=== PATIENT | male | born 1930 ===

== ENCOUNTER 2017-03-09 16:31 | Inpatient (IN) | payer MEDICARE ==
--- NOTE | 2017-03-09 17:08 | ED PDOC ---
Arrival/HPI - General Time Seen by Provider: 03/09/17 17:02 Historian: Patient, Family - History of Present Illness Narrative History of Present Illness (Text): The patient is a 86yo male, is brought to the emergency department for evaluation of hematuria since yesterday. Patient's daughter is present at bedside. Patient reports penile pain but denies any abdominal pain. At present, patient offers no additional medical complaints. Time/Duration: 24 hours Symptom Onset: Gradual Past Medical History - Provider Review Nursing Documentation Reviewed: Yes - Infectious Disease Hx of Infectious Diseases: None - Tetanus Immunization Tetanus Immunization: Unknown - Cardiac Hx Cardiac Disorders: Yes Hx Hypertension: Yes Hx Pacemaker: Yes - Pulmonary Hx Respiratory Disorders: No - Neurological Hx Neurological Disorder: No Hx Paralysis: No - HEENT Hx HEENT Disorder: No - Renal Hx Renal Disorder: No - Endocrine/Metabolic Hx Endocrine Disorders: Yes Hx Hypothyroidism: Yes - Hematological/Oncological Hx Blood Disorders: No Hx Blood Transfusions: No Hx Blood Transfusion Reaction: (NA) - Integumentary Hx Dermatological Disorder: No - Musculoskeletal/Rheumatological Hx Musculoskeletal Disorders: Yes - Gastrointestinal Hx Gastrointestinal Disorders: No - Genitourinary/Gynecological Hx Genitourinary Disorders: Yes Hx Hematuria: Yes - Psychiatric Hx Psychophysiologic Disorder: No Hx Emotional Abuse: No Hx Physical Abuse: No Hx Substance Use: No - Past Surgical History Past Surgical History: No Previous - Anesthesia Hx Anesthesia Reactions: Yes (bradycardia, asystole) Hx Malignant Hyperthermia: No - Suicidal Assessment Feels Threatened In Home Enviroment: No Family/Social History - Physician Review Nursing Documentation Reviewed: Yes Family/Social History: Unknown Family HX Smoking Status: Never Smoked Hx Alcohol Use: Yes (occasional glass of wine) Hx Substance Use: No Hx Substance Use Treatment: No Allergies/Home Meds Allergies/Adverse Reactions: Allergies No Known Allergies Allergy (Verified 03/09/17 17:00) Home Medications: Home Meds Medication Instructions Recorded Confirmed Warfarin [Coumadin] 5 mg PO QPM 01/18/15 03/09/17 Levothyroxine [Synthroid] 25 mcg PO DAILY 01/01/16 03/09/17 Amlodipine Besylate [Norvasc] 25 mg PO DAILY 04/01/16 03/09/17 Digoxin [Digitek] 1 tab PO DAILY 04/01/16 03/09/17 Hydrochlorothiazide 1 tab PO DAILY 04/01/16 03/09/17 Isosorbide Mononitrate [Isosorbide 1 tab PO DAILY 04/01/16 03/09/17 Mononitrate ER] Lisinopril 20 mg PO DAILY 04/01/16 03/09/17 Metoprolol Tartrate [Lopressor] 25 mg PO BID 04/01/16 03/09/17 Review of Systems - Physician Review All systems were reviewed & negative as marked: Yes Physical Exam - Physical Exam Narrative Physical Exam (Text): - Review of Systems Constitutional: Normal. absent: Fatigue, Weight Change, Fevers Eyes: Normal ENT: Normal Respiratory: Normal absent: SOB, Cough, Sputum Cardiovascular: Normal absent: Chest pain, Palpitations, Syncope Gastrointestinal: Normal absent: Abdominal pain, Diarrhea, Nausea, Vomiting Genitourinary: Hematuria, Penile pain. absent: Dysuria, Frequency, Musculoskeletal: Normal. absent: Arthralgias, Back Pain, Neck Pain Skin: Normal Neurological: Normal absent: Focal Weakness Endocrine: Normal Hemo/Lymphatic: Normal Psychiatric: Normal - Physical exam Patient appears age appropriate, speaking full sentences without difficulty - Systems Exam Head: Present: Atraumatic, Normocephalic Pupils: Present: PERRL Extraocular Muscles: Present: EOMI Conjunctiva: Present: Normal Mouth: Present: Moist Mucous Membranes Neck: Present: Normal Range of Motion. No: MIDLINE TENDERNESS, Paraspinal Tenderness Respiratory/Chest: Present: Clear to Auscultation, Good Air Exchange. No: Respiratory Distress, Accessory Muscle Use, Tachypnic Cardiovascular: Present: Regular Rate and Rhythm, Normal S1, S2, Peripheral Pulses Present. No: Murmurs Abdomen: Present: Normal Bowel Sounds, No: Tenderness, Peritoneal Signs, Rebound, Guarding, Distention Male genital exam: Testicles non-tender. No penile tenderness noted. No hernias. Back: Present: Normal Inspection. No: Midline Tenderness, Paraspinal Tenderness Upper Extremity: Present: Normal Inspection. No: Cyanosis, Edema Lower Extremity: Present: Normal Inspection. No: Edema Neurological: Present: GCS=15, Speech Normal, cranial nerves II through XII fully intact with no cerebellar abnormality, neuro-sensory fully intact. No focal neurological deficits. Skin: Present: Warm, Dry, Normal Color. No: Rashes Lymphatic: Present: OX3, NI, NC Psychiatric: Present: Alert, not anxious Scribe Afshan Eden present at bedside during genital exam. 03/09/17 17:26 Vital Signs Reviewed: Yes Vital Signs Temp Pulse Resp BP Pulse Ox 03/09/17 22:06 66 16 156/81 H 95 03/09/17 20:58 66 17 148/67 96 03/09/17 20:34 62 20 151/72 H 98 03/09/17 18:32 66 18 148/68 96 03/09/17 16:57 98.2 F 60 24 133/60 95 Temperature: Afebrile Blood Pressure: Normal Pulse: Regular Respiratory Rate: Normal Appearance: Positive for: Well-Appearing Pain Distress: None Mental Status: Positive for: Alert and Oriented X 3 Medical Decision Making ED Course and Treatment: Impression: Hematuria x 1 day, no acute findings on PE. Vitals stable Differential Diagnosis included but are not limited to: Cystitis Plan: -- Patient's daughter is present at bedside and she was informed of the need to follow up with urologist due to risk of cancer. -- Labs -- Reassess and disposition Prior Visits: Notes and results from previous visits were reviewed. On 04/01/2016 patient came in for evaluation of dehydration and the patient was hospitalized. Progress Notes: 03/09/17 19:58 Case discussed in detail with Dr. Shanta Syed who agrees with observation and evaluation with Dr. Momin. - Lab Interpretations Microbiology Results: Microbiology Results 03/09/17 18:30 Blood-Venous Blood Culture - Preliminary NO GROWTH AFTER 48 HOURS 03/09/17 18:00 Blood-Venous Blood Culture - Preliminary NO GROWTH AFTER 48 HOURS 03/09/17 17:20 Urine Urine Culture - Final Gram Positive Cocci Lab Results: 03/09/17 17:30 03/09/17 17:30 Lab Results 03/09/17 17:30: PT 23.8 H, INR 2.20 H, APTT 34.1 H 03/09/17 17:30: Sodium 138, Potassium 4.0, Chloride 104, Carbon Dioxide 25, Anion Gap 13, BUN 23 H, Creatinine 1.4, Est GFR ( Amer) 58, Est GFR (Non- Af Amer) 48, Random Glucose 197 H, Calcium 8.7, Total Bilirubin 0.6, AST 46, ALT 50, Alkaline Phosphatase 56, Total Protein 7.0, Albumin 3.5, Globulin 3.5, Albumin/Globulin Ratio 1.0 L 03/09/17 17:30: WBC 8.5, RBC 3.67, Hgb 12.7 L, Hct 37.0 L, MCV 100.8, MCH 34.6, MCHC 34.3, RDW 14.3, Plt Count 195, MPV 11.1 H, Gran % 67.0, Lymph % (Auto) 22.3 , Howard % (Auto) 8.5 H, Eos % (Auto) 1.8, Baso % (Auto) 0.4, Gran # 5.69, Lymph # 1.9, Howard # 0.7 H, Eos # 0.2, Baso # 0.03 03/09/17 17:20: Urine Color Red, Urine Appearance Turbid, Urine pH 5.5, Ur Specific Bates 1.025, Urine Protein 100 H, Urine Glucose (UA) Negative, Urine Ketones Trace H, Urine Blood Large H, Urine Nitrate Positive H, Urine Bilirubin Small H, Urine Urobilinogen 1.0 H, Ur Leukocyte Esterase Trace H, Urine RBC Tntc , Urine WBC 10 - 15, Ur Epithelial Cells 0 - 2, Urine Bacteria Mod - Medication Orders Current Medication Orders: Amlodipine Besylate (Norvasc) 10 mg PO DAILY [facility] Last Admin: 03/11/17 09:03 Dose: 10 mg Digoxin (Lanoxin) 0.125 mg PO DAILY [facility] Last Admin: 03/11/17 09:03 Dose: 0.125 mg Hydrochlorothiazide (Hydrodiuril) 25 mg PO DAILY [facility] Last Admin: 03/11/17 09:03 Dose: 25 mg Sodium Chloride (Sodium Chloride 0.45%) 1,000 mls @ 60 mls/hr IV .[id number] [facility] Last Admin: 03/11/17 16:54 Dose: 60 mls/hr Ceftriaxone Sodium (Rocephin 1 Gram Ivpb) 1 gm in 100 mls @ 100 mls/hr IVPB DAILY [facility] PRN Reason: Protocol Last Admin: 03/11/17 09:04 Dose: 100 mls/hr Isosorbide Mononitrate (Imdur) 60 mg PO DAILY [facility] Last Admin: 03/11/17 09:03 Dose: 60 mg Levothyroxine Sodium (Synthroid) 25 mcg PO DAILY [facility] Last Admin: 03/11/17 09:03 Dose: 25 mcg Lisinopril (Zestril) 20 mg PO DAILY [facility] Last Admin: 03/11/17 09:02 Dose: 20 mg Metoprolol Tartrate (Lopressor) 25 mg PO BID [facility] Last Admin: 03/11/17 17:28 Dose: 25 mg Warfarin Sodium (Coumadin) 5 mg PO 1800 [facility] Last Admin: 03/11/17 17:28 Dose: 5 mg Discontinued Medications Ceftriaxone Sodium (Rocephin 1 Gram Ivpb) 1 gm in 100 mls @ 200 mls/hr IV STAT STA PRN Reason: Protocol Stop: 03/09/17 19:19 Last Admin: 03/09/17 19:14 Dose: 200 mls/hr - Scribe Statement The provider has reviewed the documentation as recorded by the Ivory Eden Provider Scribe Attestation: All medical record entries made by the Ivory were at my direction and personally dictated by me. I have reviewed the chart and agree that the record accurately reflects my personal performance of the history, physical exam, medical decision making, and the department course for this patient. I have also personally directed, reviewed, and agree with the discharge instructions and disposition. Disposition/Present on Arrival - Present on Arrival Any Indicators Present on Arrival: No History of DVT/PE: No History of Uncontrolled Diabetes: No Urinary Catheter: No History Surgical Site Infection Following: None - Disposition Have Diagnosis and Disposition been Completed?: Yes Diagnosis: Hematuria Disposition: HOSPITALIZED Disposition Time: 20:10 Patient Plan: Observation Patient Problems: Current Active Problems Problem Status Onset Hematuria Acute Condition: STABLE
[2017-03-09 17:41] LABS: BASO # 0.03 K/mm3 (0.0-2.0); BASO % 0.4 % (0.0-3.0); EOS # 0.2 (0.0-0.7); EOS % 1.8 % (1.5-5.0); GRAN # 5.69 (1.4-6.5); HEMOGLOBIN 12.7 gm/dL (14.0-18.0); LYMPH # 1.9 (1.2-3.4); LYMPH % 22.3 % (22.0-35.0); MEAN CELL VOLUME 100.8 fL (80.0-105.0); MEAN CORPUSCULAR HEMOGLOBIN 34.6 pg (25.0-35.0); MEAN CORPUSCULAR HGB CONC 34.3 g/dl (31.0-37.0); MEAN PLATELET VOLUME 11.1 fl (7.0-11.0); MONO # 0.7 (0.1-0.6); MONO % 8.5 % (1.0-6.0); PLATELET COUNT 195 10^3/uL (120.0-450.0); RBC 3.67 10^6/uL (3.5-6.1); RED CELL DISTRIBUTION WIDTH 14.3 % (11.5-14.5); WHITE BLOOD COUNT 8.5 10^3/ul (4.5-11.0)
[2017-03-09 17:47] LABS: INR 2.2 (0.93-1.08); PARTIAL THROMBOPLASTIN TIME 34.1 Seconds (23.7-30.8); PROTHROMBIN TIME 23.8 Seconds (9.9-11.8)
[2017-03-09 17:51] LABS: ALBUMIN 3.5 g/dL (3.0-4.8); CALCIUM 8.7 mg/dL (8.4-10.5)
[2017-03-09 18:37] LABS: PH,URINE 5.5 (4.7-8.0); URINE BILIRUBIN SMALL (NEGATIVE); URINE BLOOD LARGE (NEGATIVE); URINE GLUCOSE (UA) NEGATIVE (NEGATIVE); URINE LEUKOCYTE ESTERASE TRACE Leu/uL (NEGATIVE); URINE NITRATE POSITIVE (NEGATIVE); URINE PROTEIN 100 mg/dL (<30 mg/dL)
[2017-03-09 18:39] LABS: URINE APPEARANCE TURBID (CLEAR); URINE COLOR RED (YELLOW)
[2017-03-09 18:44] LABS: URINE RBC TNTC /hpf (0-2)
[2017-03-09 18:45] LABS: URINE BACTERIA MOD (NEG); URINE EPITHELIAL CELLS 0 - 2 /hpf (0-5)
[2017-03-09] MEDS ORDERED: cefTRIAXone 1 gm 1 GM/100 ML BAG IV STA (18:50)
[2017-03-09 23:45] VITALS: BMI 33.5
[2017-03-10] MEDS: Digoxin 125 mcg (0.125 mg) Tab PO SCH (12:29)
[2017-03-10] MEDS: Levothyroxine 25 MCG TAB PO SCH (12:29)
[2017-03-10] MEDS: Sodium Chloride 0.45% 1,000 ML IV SCH (12:30)
[2017-03-10] MEDS: cefTRIAXone 1 gm 1 GM/100 ML BAG IVPB SCH (12:30)
--- NOTE | 2017-03-10 21:01 | HP ---
HISTORY OF PRESENT ILLNESS: I known Ricardo very well from house calls and I have been seeing him for few years. He is a very nice 86-year-old man, who presents to the emergency room with about 24 hours of bloody urine, his daughter brought him in, was having penis pain, otherwise he is doing fairly well. PAST MEDICAL HISTORY: Hypertension, he had a pacemaker, hypothyroidism, hematuria. No surgeries. 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 SOCIAL HISTORY: He never smoked. Occasional glass of wine. No substance abuse. ALLERGIES: NO KNOWN DRUG ALLERGIES. MEDICATIONS: He is on Coumadin for atrial fibrillation, Synthroid for hypothyroidism, Norvasc for hypertension, digoxin for AFib, hydrochlorothiazide for edema and CHF, isosorbide for CAD, lisinopril for hypertension, Lopressor for blood pressure. REVIEW OF SYSTEMS: He has no acute vision or hearing changes. No sore throat. No headache. No chest pain. No shortness of breath. No abdominal pain. No kidney pain. No nausea, or vomiting. No constipation, or diarrhea. He is having penis pain and bloody urine. Extremities have no pain. No headache. No numbness or tingling. PHYSICAL EXAMINATION: VITAL SIGNS: 98.2 temperature, 66 pulse, 24 respiratory rate, 148/68 blood pressure, 95% O2 sat on room air. HEENT: Head is atraumatic and normocephalic. Extraocular muscles are intact. Pupils are equal and reactive to light and accommodation. Throat is moist. NECK: Supple. No JVD. HEART: Regular rate, normal S1 and S2. LUNGS: Decreased breath sounds bilaterally, but clear to auscultation. ABDOMEN: Soft, and nontender. Positive bowel sounds. No guarding. No rebounds. No CVA tenderness. GENITAL: He had a genitalia exam in the ER. Testicles are nontender, no penile tenderness, no hernia is present. No back pain at this time. No edema. NEUROLOGIC: GCS was 15. Cranial nerves II through XII are grossly intact. SKIN: Warm and dry. [employer]: Alert and oriented x3. He is alert, comfortable. LABORATORY DATA: He had a test done. His urine was red, turbid, large blood, positive nitrates. Too numerous to count RBCs, moderate bacteria. 138 sodium, potassium 4, BUN 22, creatinine 1.4, GFR is 48, sugar is 197, calcium is 8.7, total bilirubin is 0.6. AST is 46, ALT is 50, alkaline phosphatase 56, total protein 7, albumin is 3.5. INR is 2.2. 8.5 white count, 12.7 hemoglobin, 37 hematocrit, 195 platelets. He had a consult for Dr. Momin, Urologist, to be on IV fluid, IV antibiotics, Rocephin. He is back on his medication. We will check a labs tomorrow. We will change for inpatient and admit. This is history and physical on Ricardo Sr, who has hematuria with penis pain, IV antibiotics with UTI. Dieter Griggs DO MTDD
[2017-03-11 07:10] LABS: HEMOGLOBIN 13.4 gm/dL (14.0-18.0); MEAN CELL VOLUME 100.8 fL (80.0-105.0); MEAN CORPUSCULAR HEMOGLOBIN 34.2 pg (25.0-35.0); MEAN CORPUSCULAR HGB CONC 33.9 g/dl (31.0-37.0); MEAN PLATELET VOLUME 10.7 fl (7.0-11.0); RBC 3.92 10^6/uL (3.5-6.1); RED CELL DISTRIBUTION WIDTH 14.4 % (11.5-14.5)
[2017-03-11 07:15] LABS: INR 2.06 (0.93-1.08); PROTHROMBIN TIME 22.2 Seconds (9.9-11.8)
[2017-03-11 07:22] LABS: ALB/GLOB RATIO 1.1 (1.1-1.8); ALBUMIN 3.6 g/dL (3.0-4.8); CALCIUM 8.7 mg/dL (8.4-10.5)
[2017-03-11] MEDS: Digoxin 125 mcg (0.125 mg) Tab PO SCH (09:03)
[2017-03-11] MEDS: Levothyroxine 25 MCG TAB PO SCH (09:03)
[2017-03-11] MEDS: cefTRIAXone 1 gm 1 GM/100 ML BAG IVPB SCH (09:04)
[2017-03-11 09:08] VITALS: PULSE 67
[2017-03-11] MEDS: Sodium Chloride 0.45% 1,000 ML IV SCH (16:54)
--- NOTE | 2017-03-12 06:08 | PN ---
03/11/2017SUBJECTIVE: He is doing a little bit better today, though urine is now punch colored, not as bright red, but not 100% clear yet. He has not seen the urologist yet that I know of, there are no notes in the chart. He is comfortable. He is eating. He has got no more pain, no more penis pain which is good. He is on IV fluids, Coumadin, HydroDIURIL, Imdur, Lanoxin, Lopressor, Norvasc, Rocephin IV, Synthroid and Zestril. PHYSICAL EXAMINATION: VITAL SIGNS: His vital signs are 99 temperature, 61 pulse, 16 respiration rate, 95% O2 sat on room air. HEENT: His head is atraumatic and normocephalic. His throat is moist. NECK: Supple. HEART: Regular rate. LUNGS: Clear to auscultation. ABDOMEN: Soft and nontender. Positive bowel sounds. No CVA tenderness. EXTREMITIES: No edema. LABORATORY DATA: He has 8 white count, 30.4 hemoglobin, 39.5 hematocrit, 181 platelets. INR is 2.06. 140 sodium, potassium is 4, BUN is 20, creatinine 1.4, GFR is 48, sugar is 95, calcium is 8.7, total bilirubin is 0.7, AST is 42, LFT is 47, alkaline phosphatase is 57, total protein 6.9, albumin is 3.6, urine with large blood too numerous to count, moderate bacteria. He is here with hematuria, UTI, old AFib, diabetes and the penis pain has resolved. Waiting for urology to see make a note, not sure which way we are going to go. If he clears up with the urine which is now punch colored, I would then discharge as an outpatient followup. I think the UTI is starting to improve in one more day of IV antibiotics, IV fluids and treatment. We will see if urology will give us a plan and he is here improving. We will check his vitals tomorrow. Dieter Griggs DO
[2017-03-12 07:55] LABS: HEMOGLOBIN 13.3 gm/dL (14.0-18.0); MEAN CORPUSCULAR HEMOGLOBIN 34.3 pg (25.0-35.0); MEAN CORPUSCULAR HGB CONC 34.3 g/dl (31.0-37.0); MEAN PLATELET VOLUME 11.1 fl (7.0-11.0); RBC 3.88 10^6/uL (3.5-6.1); RED CELL DISTRIBUTION WIDTH 14.1 % (11.5-14.5); WHITE BLOOD COUNT 9.4 10^3/ul (4.5-11.0)
[2017-03-12 08:06] LABS: ALB/GLOB RATIO 1.1 (1.1-1.8); ALBUMIN 3.8 g/dL (3.0-4.8); CALCIUM 9.2 mg/dL (8.4-10.5)
[2017-03-12 08:34] VITALS: BP 139/69; RESP 20; TEMP 98; O2SAT 95
[2017-03-12] MEDS: cefTRIAXone 1 gm 1 GM/100 ML BAG IVPB SCH (10:15)
[2017-03-12] MEDS: Levothyroxine 25 MCG TAB PO SCH (10:16)
[2017-03-12] MEDS: Digoxin 125 mcg (0.125 mg) Tab PO SCH (10:16)
--- NOTE | 2017-03-13 03:19 | DS ---
I saw the patient sitting in bed this morning. His urine is now completely clear, menezes and yellow. No more punch, no more blood. He is feeling well. He is currently on IV fluids, Coumadin, HydroDIURIL, Imdur, Lanoxin, Lopressor, Norvasc, Rocephin, Synthroid and Zestril. He is comfortable, no complaints. No abdominal pain, no penis pain, no problems. PHYSICAL EXAMINATION: VITAL SIGNS: He has 98.7 temperature, 67 pulse, 139/83 blood pressure, 18 respiratory rate and 94% O2 saturation on room air. HEENT: Head is atraumatic and normocephalic. Throat is moist. NECK: Supple. HEART: Regular rate. LUNGS: Clear to auscultation. ABDOMEN: Soft, nontender, positive bowel sounds. No CVA tenderness. EXTREMITIES: With no edema. NEUROLOGIC: He looks great, feels great and wanting to go home. LABORATORY DATA: Labs are pending for today. I discussed at length with him his medications. He will be discharged, I am not sure why the urologist would not see him in the last 3 days. He has consulted Dr. Momin. Hopefully in the outpatient, he can follow up with him. If this happens again, we will repeat our procedure and I will see him on for hematuria with penis pain, possible urinary tract infection which resolved. Dieter Griggs DO MTDD
== END 2017-03-12 13:05 | disposition home or self-care (01) | DRG 690 ==
LOC: ED 16:31 → INTOOBSV 20:00 → UNDOADMOB 20:00 → OBSVTOIN 20:00 → ERH 20:00 → 3RSO 22:13 → ERH 22:13 → 3RSO 03-10 11:13 → ERH 03-10 11:13 → OBSVTOIN 03-10 11:13 → UNDODISIN 03-12 13:05
PROVIDERS: ADMIT Family Medicine; ATTEND Family Medicine
DX: N39.0 Urinary tract infection, site not specified (principal); I48.91 Unspecified atrial fibrillation; E11.9 Type 2 diabetes mellitus without complications; N48.89 Other specified disorders of penis; R31.9 Hematuria, unspecified; I10 Essential (primary) hypertension; E03.9 Hypothyroidism, unspecified; Z95.0 Presence of cardiac pacemaker; Z79.01 Long term (current) use of anticoagulants; Z79.899 Other long term (current) drug therapy; R40.2412 Glasgow coma scale score 13-15, at arrival to emergency department

== ENCOUNTER 2018-03-14 06:45 | Inpatient (IN) | payer MEDICARE, OTHER ==
[2018-03-14 07:10] VITALS: BMI 26.6
--- NOTE | 2018-03-14 07:57 | ED PDOC ---
Arrival/HPI - General Chief Complaint: Male Genitourinary Time Seen by Provider: 03/14/18 07:52 Historian: Patient - History of Present Illness Narrative History of Present Illness (Text): 03/14/18 07:53 87 year old male, whose past medical history includes hypertension, hypothyroidism, hematuria, and a pacemaker, who presents to the ED complaining of difficulty urinating and hematuria. Patient denies any fever, chills, headaches, sob, chest pain, nausea, vomiting, or any other complaints. Time/Duration: 24 hours Symptom Onset: Gradual Symptom Course: Unchanged Activities at Onset: Light Context: Home Past Medical History - Provider Review Nursing Documentation Reviewed: Yes - Infectious Disease Hx of Infectious Diseases: None - Tetanus Immunization Tetanus Immunization: Unknown - Cardiac Hx Cardiac Disorders: Yes Hx Hypertension: Yes Hx Pacemaker: Yes - Pulmonary Hx Respiratory Disorders: No - Neurological Hx Neurological Disorder: No Hx Paralysis: No - HEENT Hx HEENT Disorder: No - Renal Hx Renal Disorder: No - Endocrine/Metabolic Hx Endocrine Disorders: Yes Hx Hypothyroidism: Yes - Hematological/Oncological Hx Blood Disorders: No Hx Blood Transfusions: No Hx Blood Transfusion Reaction: (NA) - Integumentary Hx Dermatological Disorder: No - Musculoskeletal/Rheumatological Hx Musculoskeletal Disorders: Yes - Gastrointestinal Hx Gastrointestinal Disorders: No - Genitourinary/Gynecological Hx Genitourinary Disorders: Yes Hx Hematuria: Yes - Psychiatric Hx Psychophysiologic Disorder: No Hx Emotional Abuse: No Hx Physical Abuse: No Hx Substance Use: No - Past Surgical History Past Surgical History: No Previous - Anesthesia Hx Anesthesia Reactions: Yes (bradycardia, asystole) Hx Malignant Hyperthermia: No - Suicidal Assessment Feels Threatened In Home Enviroment: No Family/Social History - Physician Review Nursing Documentation Reviewed: Yes Family/Social History: Unknown Family HX Smoking Status: Never Smoked Hx Alcohol Use: Yes (occasional glass of wine) Hx Substance Use: No Hx Substance Use Treatment: No Allergies/Home Meds Allergies/Adverse Reactions: Allergies No Known Allergies Allergy (Verified 03/14/18 11:46) Home Medications: Home Meds Medication Instructions Recorded Confirmed Warfarin [Coumadin] 5 mg PO QPM 01/18/15 03/14/18 Levothyroxine [Synthroid] 25 mcg PO DAILY 01/01/16 03/14/18 Amlodipine Besylate [Norvasc] 25 mg PO DAILY 04/01/16 03/14/18 Digoxin [Digitek] 1 tab PO DAILY 04/01/16 03/14/18 Hydrochlorothiazide 1 tab PO DAILY 04/01/16 03/14/18 Isosorbide Mononitrate [Isosorbide 1 tab PO DAILY 04/01/16 03/14/18 Mononitrate ER] Lisinopril 20 mg PO DAILY 04/01/16 03/14/18 Metoprolol Tartrate [Lopressor] 25 mg PO BID 04/01/16 03/14/18 Review of Systems - Physician Review All systems were reviewed & negative as marked: Yes - Review of Systems Constitutional: Normal Eyes: Normal ENT: Normal Respiratory: Normal. absent: SOB, Cough Cardiovascular: Normal. absent: Chest Pain Gastrointestinal: Normal. absent: Abdominal Pain, Diarrhea, Nausea, Vomiting Genitourinary Male: Dysuria, Hematuria Musculoskeletal: Normal. absent: Back Pain, Neck Pain Skin: Normal. absent: Rash Neurological: Normal. absent: Headache, Dizziness Endocrine: Normal Hemo/Lymphatic: Normal Psychiatric: Normal Physical Exam Vital Signs Reviewed: Yes Vital Signs Temp Pulse Resp BP Pulse Ox 03/14/18 10:25 98.8 F 70 18 160/70 H 98 03/14/18 10:10 98.0 F 69 18 160/70 H 98 03/14/18 07:16 98.8 F 67 18 168/92 H 98 Temperature: Afebrile Blood Pressure: Normal Pulse: Regular Respiratory Rate: Normal Appearance: Positive for: Well-Appearing, Non-Toxic, Comfortable Pain Distress: None Mental Status: Positive for: Alert and Oriented X 3 - Systems Exam Head: Present: Atraumatic, Normocephalic Pupils: Present: PERRL Extroacular Muscles: Present: EOMI Conjunctiva: Present: Normal Mouth: Present: Moist Mucous Membranes Neck: Present: Normal Range of Motion Respiratory/Chest: Present: Clear to Auscultation, Good Air Exchange. No: Respiratory Distress, Accessory Muscle Use Cardiovascular: Present: Regular Rate and Rhythm, Normal S1, S2. No: Murmurs Abdomen: Present: Tenderness (Suprapubic tenderness), Distention (Suprapubic distention). No: Peritoneal Signs Back: Present: Normal Inspection Upper Extremity: Present: Normal Inspection. No: Cyanosis, Edema Lower Extremity: Present: Normal Inspection. No: Edema Neurological: Present: GCS=15, CN II-XII Intact, Speech Normal Skin: Present: Warm, Dry, Normal Color. No: Rashes Psychiatric: Present: Alert, Oriented x 3, Normal Insight, Normal Concentration Medical Decision Making ED Course and Treatment: 03/14/18 07:58 Impression: 87 year old male presents to the ED complaining of dysuria and hematuria. Plan: -- Labs -- UA -- Boykin Catheter Progress Notes: 03/14/18 09:22 Dr. Griggs is at bedside, accepts patient for admission to his service. 03/14/18 09:29 Dr. Hernandez made aware of case. - Lab Interpretations Lab Results: 03/14/18 08:15 03/14/18 08:15 Lab Results 03/14/18 08:15: Sodium 141, Potassium 3.6, Chloride 104, Carbon Dioxide 27, Anion Gap 14, BUN 15, Creatinine 1.3, Est GFR ( Amer) > 60, Est GFR (Non- Af Amer) 52, Random Glucose 138 H, Calcium 8.5, Total Bilirubin 1.6 H, AST 47, ALT 51, Alkaline Phosphatase 76, Total Protein 7.1, Albumin 3.8, Globulin 3.3, Albumin/Globulin Ratio 1.1 03/14/18 08:15: PT 32.7 H, INR 2.78 H, APTT 43.8 H 03/14/18 08:15: WBC 9.2, RBC 3.78, Hgb 12.7 L, Hct 37.4 L, MCV 98.9, MCH 33.6, MCHC 34.0, RDW 15.3 H, Plt Count 200, MPV 10.6, Gran % 76.3 H, Lymph % (Auto) 13.7 L, [place] % (Auto) 8.7 H, Eos % (Auto) 1.1 L, Baso % (Auto) 0.2, Gran # 7.05 H, Lymph # (Auto) 1.3, [place] # (Auto) 0.8 H, Eos # (Auto) 0.1, Baso # (Auto) 0.02 03/14/18 08:00: Urine Color Dark red, Urine Appearance Bloody, Urine pH 7.0, Ur Specific [place] 1.025, Urine Protein >=300 H, Urine Glucose (UA) 100 H, Urine Ketones Negative, Urine Blood Large H, Urine Nitrate Negative, Urine Bilirubin Small H, Urine Urobilinogen 0.2, Ur Leukocyte Esterase Negative, Urine RBC Tntc , Urine WBC TEST NOT PERFORMED - Medication Orders Current Medication Orders: Albuterol/Ipratropium (Duoneb 3 Mg/0.5 Mg (3 Ml) Ud) 3 ml IH Q2H PRN PRN Reason: Shortness of Breath Albuterol/Ipratropium (Duoneb 3 Mg/0.5 Mg (3 Ml) Ud) 3 ml IH TIDRESP [facility] Allopurinol (Zyloprim) 100 mg PO DAILY [facility] Last Admin: 03/19/18 12:36 Dose: 100 mg Amlodipine Besylate (Norvasc) 10 mg PO DAILY [facility] Last Admin: 03/19/18 12:37 Dose: 10 mg [facility] Blood Pressure Document 03/19/18 12:37 LM (Rec: 03/19/18 12:37 LM [id number]) Blood Pressure Blood Pressure (100/60-150/90 mm Hg) 170/76 Doxycycline Hyclate (Doryx) 100 mg PO Q12 [facility] PRN Reason: Protocol Last Admin: 03/19/18 12:35 Dose: 100 mg Ergocalciferol (Drisdol 50,000 Intl Units Cap) 1 cap PO Q7D [facility] Last Admin: 03/17/18 18:10 Dose: 1 cap Ferrous Gluconate (Fergon) 324 mg PO TID [facility] Last Admin: 03/19/18 18:06 Dose: 324 mg Hydralazine HCl (Apresoline) 25 mg PO Q4 PRN PRN Reason: Other Cefepime HCl (Maxipime 1gm) 1 gm in 100 mls @ 100 mls/hr IVPB Q24H [facility] PRN Reason: Protocol Last Admin: 03/19/18 09:57 Dose: 100 mls/hr eMAR Start Stop Document 03/19/18 09:57 LM (Rec: 03/19/18 09:57 LM [id number]) Intravenous Solution Start Date 03/19/18 Start Time 09:57 Insulin Human Regular (Humulin R Low) 0 units SC ACHS [facility] PRN Reason: Protocol Last Admin: 03/19/18 18:06 Dose: Not Given Non-Admin Reason: Blood Sugar Parameter [facility] Blood Glucose Document 03/19/18 18:06 LM (Rec: 03/19/18 18:06 LM [id number]) Blood Glucose Finger Stick Blood Glucose (70-120) 139 Isosorbide Mononitrate (Imdur) 60 mg PO DAILY [facility] Last Admin: 03/19/18 12:35 Dose: 60 mg Levothyroxine Sodium (Synthroid) 25 mcg PO 0600 [facility] Last Admin: 03/19/18 06:06 Dose: 25 mcg Lisinopril (Zestril) 20 mg PO DAILY [facility] Last Admin: 03/19/18 18:09 Dose: 20 mg MAR Pulse and Blood Pressure Document 03/19/18 18:09 LM (Rec: 03/19/18 18:09 LM [id number]) Pulse Pulse Rate (60-90 beats/min) 58 Blood Pressure Blood Pressure (100/60-150/90 mm Hg) 121/59 Lorazepam (Ativan) 0.5 mg IVP Q8 PRN; Protocol PRN Reason: agiation,restlessness Metoprolol Tartrate (Lopressor) 25 mg PO BID [facility] Last Admin: 03/19/18 18:06 Dose: 25 mg MAR Pulse and Blood Pressure Document 03/19/18 18:06 LM (Rec: 03/19/18 18:06 LM [id number]) Pulse Pulse Rate (60-90 beats/min) 58 Blood Pressure Blood Pressure (100/60-150/90 mm Hg) 121/59 Morphine Sulfate (Morphine) 2 mg IVP Q4 [facility] Last Admin: 03/19/18 18:07 Dose: Quetiapine Fumarate (Seroquel) 12.5 mg PO Q12 PRN; Protocol PRN Reason: Agitation Last Admin: 03/18/18 22:05 Dose: 12.5 mg Behavioural Document 03/18/18 22:05 KOPPS (Rec: 03/18/18 22:05 KOPPS [id number]) Maintenance Maintenance Dose Yes Nonmedicinal Nonmedicinal Interventions Redirect Therapeutic Communication Activity Behavior Behavior for Medication: Anxiety Re-Assess: Reassess Psych Meds Document 03/18/18 23:05 KOPPS (Rec: 03/19/18 00:47 KOPPS [id number]) Reassess Psych Med Effective Vitamin B Complex/Vit C/Folic Acid (Nephro-Armaan) 1 tab PO 0800 [facility] Last Admin: 03/19/18 12:35 Dose: 1 tab Discontinued Medications Albuterol/Ipratropium (Duoneb 3 Mg/0.5 Mg (3 Ml) Ud) 3 ml IH STAT STA Stop: 03/15/18 06:05 Last Admin: 03/15/18 06:25 Dose: 3 ml Albuterol/Ipratropium (Duoneb 3 Mg/0.5 Mg (3 Ml) Ud) 3 ml IH [id number] [facility] Last Admin: 03/19/18 13:26 Dose: 3 ml Amlodipine Besylate (Norvasc) 25 mg PO DAILY [facility] Amlodipine Besylate (Norvasc) 5 mg PO DAILY [facility] Last Admin: 03/17/18 11:48 Dose: 5 mg MAR Pulse and Blood Pressure Document 03/17/18 11:48 CRIMC (Rec: 03/17/18 11:49 [id number] Pulse Pulse Rate (60-90 beats/min) 69 Blood Pressure Blood Pressure (100/60-150/90 mm Hg) 168/64 Amlodipine Besylate (Norvasc) 5 mg PO DAILY [facility] Stop: 03/17/18 16:31 Last Admin: 03/17/18 18:10 Dose: 5 mg MAR Pulse and Blood Pressure Document 03/17/18 18:10 [facility] (Rec: 03/17/18 18:10 [email or web address] Pulse Pulse Rate (60-90 beats/min) 63 Blood Pressure Blood Pressure (100/60-150/90 mm Hg) 131/71 Digoxin (Digoxin) 0.125 mg PO DAILY [facility] Last Admin: 03/16/18 10:50 Dose: 0.125 mg MAR Apical Pulse Rate Document 03/16/18 10:50 CRIMC (Rec: 03/16/18 10:50 [email or web address] Apical Pulse Rate Apical Pulse Rate (60-90 beats/min) 62 Furosemide (Lasix) 40 mg IVP ONCE ONE Stop: 03/15/18 08:56 Last Admin: 03/15/18 09:40 Dose: 40 mg MAR Blood Pressure Document 03/15/18 09:40 GM (Rec: 03/15/18 09:40 GM [id number]) Blood Pressure Blood Pressure (100/60-150/90 mm Hg) 146/72 IVP Administration Document 03/15/18 09:40 GM (Rec: 03/15/18 09:40 GM [id number]) Charges for Administration # of IVP Administrations 1 Haloperidol Lactate (Haldol) 1 mg IVP ONCE ONE PRN Reason: Protocol Stop: 03/19/18 01:54 Last Admin: 03/19/18 02:05 Dose: 1 mg IVP Administration Document 03/19/18 02:05 KOPPS (Rec: 03/19/18 02:05 [id number]) Charges for Administration # of IVP Administrations 1 Behavioural Document 03/19/18 02:05 KOPPS (Rec: 03/19/18 02:05 KOS [id number]) Maintenance Maintenance Dose Yes Nonmedicinal Nonmedicinal Interventions Redirect Therapeutic Communication Activity Behavior Behavior for Medication: Anxiety Continuous crying/screaming/ yelling Continuous pacing/restlessness Dangers to self/others Pulling IV lines/tubes/ catheter Re-Assess: Reassess Psych Meds Document 03/19/18 03:05 KOPPS (Rec: 03/19/18 05:40 KOPPS [id number]) Reassess Psych Med Effective Hydrochlorothiazide (Hydrodiuril) 25 mg PO DAILY [facility] Last Admin: 03/16/18 10:50 Dose: 25 mg Sodium Chloride (Sodium Chloride 0.9%) 1,000 mls @ 999 mls/hr IV .Q1H1M STA Stop: 03/14/18 10:05 Last Admin: 03/14/18 09:13 Dose: 999 mls/hr eMAR Start Stop Document 03/14/18 09:13 [email or web address] (Rec: 03/14/18 09:13 CASTS1 [id number]) Intravenous Solution Start Date 03/14/18 Start Time 09:13 End Date 03/14/18 Sodium Chloride (Sodium Chloride 0.9%) 1,000 mls @ 75 mls/hr IV .[id number] SURI Stop: 03/14/18 18:01 Vancomycin HCl 1.2 gm/ Sodium (Chloride) 500 mls @ 170 mls/hr IVPB ONCE ONE PRN Reason: Protocol Stop: 03/15/18 11:46 Last Admin: 03/15/18 09:41 Dose: 170 mls/hr eMAR Start Stop Document 03/15/18 09:41 GM (Rec: 03/15/18 09:42 GM [id number]) Intravenous Solution Start Date 03/15/18 Start Time 09:41 End Date 03/15/18 End time 13:41 Total Infusion Time 240 Potassium Chloride (Potassium Chloride 10 Meq/100 Ml) 10 meq in 100 mls @ 50 mls/hr IVPB Q2H [facility] Stop: 03/16/18 14:44 Last Admin: 03/16/18 13:02 Dose: 50 mls/hr eMAR Start Stop Document 03/16/18 13:02 [facility] (Rec: 03/16/18 13:02 [facility] [id number]) Intravenous Solution Start Date 03/16/18 Start Time 13:02 End Date 03/16/18 End time 14:00 Total Infusion Time 58 Sodium Chloride (Sodium Chloride 0.45%) 1,000 mls @ 75 mls/hr IV .[id number] [facility] Last Admin: 03/17/18 01:54 Dose: 75 mls/hr eMAR Start Stop Document 03/17/18 01:54 TTC (Rec: 03/17/18 01:54 TTC [id number]) Intravenous Solution Start Date 03/17/18 Start Time 01:54 Potassium Chloride (Potassium Chloride 10 Meq/100 Ml) 10 meq in 100 mls @ 50 mls/hr IVPB ONCE ONE Stop: 03/18/18 10:12 Last Admin: 03/18/18 08:29 Dose: 50 mls/hr eMAR Start Stop Document 03/18/18 08:29 RDS (Rec: 03/18/18 08:29 RDS [id number]) Intravenous Solution Start Date 03/18/18 Start Time 08:29 End Date 03/18/18 End time 10:29 Total Infusion Time 120 Sodium Chloride (Sodium Chloride 0.45%) 1,000 mls @ 60 mls/hr IV .[id number] [facility] Last Admin: 03/19/18 06:07 Dose: Insulin Human Regular (Humulin R Low) 0 units SC ACHS [facility] PRN Reason: Protocol Last Admin: 03/17/18 11:50 Dose: Not Given Non-Admin Reason: Blood Sugar Parameter MAR Blood Glucose Document 03/17/18 11:50 [facility] (Rec: 03/17/18 11:50 [id number] Blood Glucose Finger Stick Blood Glucose (70-120) 108 Isosorbide Mononitrate (Imdur) 60 mg PO DAILY [facility] Last Admin: 03/17/18 11:00 Dose: 60 mg Levothyroxine Sodium (Synthroid) 25 mcg PO DAILY [facility] Last Admin: 03/18/18 10:58 Dose: 25 mcg Lisinopril (Zestril) 20 mg PO DAILY [facility] Last Admin: 03/16/18 10:20 Dose: 20 mg MAR Pulse and Blood Pressure Document 03/16/18 10:20 [facility] (Rec: 03/16/18 10:20 [facility] [id number]) Pulse Pulse Rate (60-90 beats/min) 62 Blood Pressure Blood Pressure (100/60-150/90 mm Hg) 144/44 Lorazepam (Ativan) 1 mg IVP ONCE ONE PRN Reason: Protocol Stop: 03/14/18 22:05 Last Admin: 03/14/18 22:16 Dose: 1 mg IVP Administration Document 03/14/18 22:16 PD (Rec: 03/14/18 22:16 [place] [id number]) Charges for Administration # of IVP Administrations 1 Behavioural Document 03/14/18 22:16 PD (Rec: 03/14/18 22:16 PD [place] [id number]) Maintenance Maintenance Dose No Nonmedicinal Nonmedicinal Interventions Redirect Behavior Behavior for Medication: Continuous pacing/restlessness Pulling IV lines/tubes/ catheter Re-Assess: Reassess Psych Meds Document 03/14/18 22:46 PD (Rec: 03/15/18 02:25 PD [place] [id number]) Reassess Psych Med Effective Lorazepam (Ativan) 1 mg IVP ONCE ONE PRN Reason: Protocol Stop: 03/15/18 22:05 Last Admin: 03/15/18 22:12 Dose: 1 mg IVP Administration Document 03/15/18 22:12 KOPPS (Rec: 03/15/18 22:12 KOPPS [id number]) Charges for Administration # of IVP Administrations 1 Behavioural Document 03/15/18 22:12 KOPPS (Rec: 03/15/18 22:12 KOPPS [id number]) Maintenance Maintenance Dose Yes Nonmedicinal Nonmedicinal Interventions Redirect Therapeutic Communication Activity Behavior Behavior for Medication: Anxiety Continuous pacing/restlessness Pulling IV lines/tubes/ catheter Re-Assess: Reassess Psych Meds Document 03/15/18 22:42 KOPPS (Rec: 03/16/18 00:10 KOPPS [place] [id number]) Reassess Psych Med Effective Lorazepam (Ativan) 1 mg IVP ONCE ONE PRN Reason: Protocol Stop: 03/16/18 06:51 Last Admin: 03/16/18 08:43 Dose: 1 mg IVP Administration Document 03/16/18 08:43 CRIM (Rec: 03/16/18 08:45 [place] [id number]) Charges for Administration # of IVP Administrations 1 Behavioural Document 03/16/18 08:43 [facility] (Rec: 03/16/18 08:45 [place] [id number]) Maintenance Maintenance Dose No Nonmedicinal Nonmedicinal Interventions Redirect Therapeutic Communication Activity Give food/fluids Comment patient is aggressive, will not follow commands Behavior Behavior for Medication: Biting/Hitting/Throwing/ Kicking Continuous crying/screaming/ yelling Continuous pacing/restlessness Dangers to self/others Pulling IV lines/tubes/ catheter Behavior Comment patient is not following commands, cvm in use, indemand bedside and in use, Lorazepam (Ativan) 1 mg IVP STAT STA PRN Reason: Protocol Stop: 03/17/18 01:39 Last Admin: 03/17/18 01:51 Dose: 1 mg IVP Administration Document 03/17/18 01:51 TTC (Rec: 03/17/18 01:52 [place] [id number]) Charges for Administration # of IVP Administrations 1 Behavioural Document 03/17/18 01:51 TTC (Rec: 03/17/18 01:52 [place] [id number]) Maintenance Maintenance Dose No Nonmedicinal Nonmedicinal Interventions Redirect Behavior Behavior for Medication: Biting/Hitting/Throwing/ Kicking Continuous crying/screaming/ yelling Dangers to self/others Lorazepam (Ativan) 1 mg IVP STAT STA PRN Reason: Protocol Stop: 03/18/18 01:34 Last Admin: 03/18/18 01:43 Dose: 1 mg IVP Administration Document 03/18/18 01:43 TTC (Rec: 03/18/18 01:43 TTC [id number]) Charges for Administration # of IVP Administrations 1 Behavioural Document 03/18/18 01:43 TTC (Rec: 03/18/18 01:43 TTC [id number]) Maintenance Maintenance Dose No Nonmedicinal Nonmedicinal Interventions Redirect Behavior Behavior for Medication: Continuous crying/screaming/ yelling Re-Assess: Reassess Psych Meds Document 03/18/18 02:13 TTC (Rec: 03/18/18 07:57 TTC [id number]) Reassess Psych Med Effective Midazolam HCl (Versed Inj) 2 mg IVP ONCE ONE Stop: 03/14/18 17:07 Morphine Sulfate (Morphine) 4 mg IVP STAT STA Stop: 03/14/18 09:06 Last Admin: 03/14/18 09:14 Dose: 4 mg MAR Pain Assessment Document 03/14/18 09:14 [email or web address] (Rec: 03/14/18 09:14 CASTS1 [id number]) Pain Reassessment Is this a pain reassessment? No Sleep Is patient sleeping during reassessment? No Presence of Pain Presence of Pain Yes Pain Scale Used Pain Scale Used Numeric Location Pain Location Body Site Groin Description Description Constant Intensity of Pain at present 7 Pain Behavior Facial Grimacing Aggravating Factors Changing Position Alleviating Factors/Management Medication Techniques Alleviating Factors Medication IVP Administration Document 03/14/18 09:14 [email or web address] (Rec: 03/14/18 09:14 [email or web address] [id number]) Charges for Administration # of IVP Administrations 1 Morphine Sulfate (Morphine) 2 mg IVP Q6H PRN PRN Reason: Pain, severe (8-10) Last Admin: 03/18/18 16:50 Dose: 2 mg MAR Pain Assessment Document 03/18/18 16:50 RDS (Rec: 03/18/18 16:51 RDS [id number]) Pain Reassessment Is this a pain reassessment? No Presence of Pain Presence of Pain Yes Pain Scale Used Pain Scale Used Numeric Description Intensity of Pain at present 10 IVP Administration Document 03/18/18 16:50 RDS (Rec: 03/18/18 16:51 RDS [id number]) Charges for Administration # of IVP Administrations 1 Re-Assess: MAR Pain Assessment Document 03/18/18 17:50 RDS (Rec: 03/18/18 19:30 RDS [id number]) Pain Reassessment Is this a pain reassessment? Yes Sleep Is patient sleeping during reassessment? No Presence of Pain Presence of Pain No Morphine Sulfate (Morphine) 2 mg IVP ONCE ONE Stop: 03/14/18 12:38 Last Admin: 03/14/18 13:20 Dose: 2 mg MAR Pain Assessment Document 03/14/18 13:20 TAV (Rec: 03/14/18 13:20 TAV [id number]) Pain Reassessment Is this a pain reassessment? No Presence of Pain Presence of Pain Yes Pain Scale Used Pain Scale Used Numeric Location Pain Location Body Site Groin Description Description Constant Intensity of Pain at present 10 Pain Behavior Moaning Aggravating Factors Changing Position Alleviating Factors/Management Medication Techniques IVP Administration Document 03/14/18 13:20 TAV (Rec: 03/14/18 13:20 TAV [id number]) Charges for Administration # of IVP Administrations 1 Morphine Sulfate (Morphine) 4 mg IVP Q15M PRN PRN Reason: Pain, severe (8-10) Stop: 03/14/18 23:59 Morphine Sulfate (Morphine) 2 mg IVP Q6 PRN PRN Reason: Pain, severe (8-10) Last Admin: 03/19/18 06:05 Dose: 2 mg MAR Pain Assessment Document 03/19/18 06:05 SHARMINS (Rec: 03/19/18 06:05 KOPPS [id number]) Pain Reassessment Is this a pain reassessment? No Sleep Is patient sleeping during reassessment? No Presence of Pain Presence of Pain Yes Pain Scale Used Pain Scale Used Numeric Location Left, Right or Bilateral Bilateral Pain Location Body Site Generalized Description Description Constant Intensity of Pain at present 8 Pain Behavior Moaning Irritability Restlessness Facial Grimacing Screaming Aggravating Factors ADL's Changing Position Exercise/Activity Alleviating Factors/Management Medication Techniques IVP Administration Document 03/19/18 06:05 SHARMINS (Rec: 03/19/18 06:05 KOPPS [id number]) Charges for Administration # of IVP Administrations 1 Pneumococcal Polyvalent Vaccine (Pneumovax 23 Vaccine) 0.5 ml IM .ONCE ONE Stop: 03/14/18 15:01 Ziprasidone (Geodon Inj) 10 mg IM ONCE ONE PRN Reason: Protocol Stop: 03/16/18 01:17 Last Admin: 03/16/18 01:20 Dose: 10 mg IM Administration Charges Document 03/16/18 01:20 KOPPS (Rec: 03/16/18 01:21 KOPPS [id number]) Injection Site MAR Injection Site Left Deltoid Charges for Administration # of IM Administrations 1 Behavioural Document 03/16/18 01:20 KOPPS (Rec: 03/16/18 01:21 KOPPS [id number]) Maintenance Maintenance Dose No Nonmedicinal Nonmedicinal Interventions Redirect Therapeutic Communication Activity Behavior Behavior for Medication: Anxiety Biting/Hitting/Throwing/ Kicking Continuous pacing/restlessness Dangers to self/others Hallucinations/paranoid/ delusions/extreme fear Pulling IV lines/tubes/ catheter Re-Assess: Reassess Psych Meds Document 03/16/18 01:50 KOPPS (Rec: 03/16/18 04:32 KOPPS [id number]) Reassess Psych Med Effective - Scribe Statement The provider has reviewed the documentation as recorded by the Scribdawn Cao All medical record entries made by the Scribdawn were at my direction and personally dictated by me. I have reviewed the chart and agree that the record accurately reflects my personal performance of the history, physical exam, medical decision making, and the department course for this patient. I have also personally directed, reviewed, and agree with the discharge instructions and disposition. Disposition/Present on Arrival - Present on Arrival Any Indicators Present on Arrival: No History of DVT/PE: No History of Uncontrolled Diabetes: No Urinary Catheter: No History of Decub. Ulcer: No History Surgical Site Infection Following: None - Disposition Have Diagnosis and Disposition been Completed?: Yes Diagnosis: Hematuria, Gross hematuria Disposition: HOSPITALIZED Disposition Time: 09:22 Patient Plan: Admission Condition: GOOD
[2018-03-14 08:13] LABS: URINE BILIRUBIN SMALL (NEGATIVE); URINE BLOOD LARGE (NEGATIVE); URINE GLUCOSE (UA) 100 mg/dL (NEGATIVE); URINE LEUKOCYTE ESTERASE NEGATIVE Leu/uL (NEGATIVE); URINE PROTEIN >=300 mg/dL (<30 mg/dL); URINE UROBILINOGEN 0.2 E.U./dL (<1 E.U./dL)
[2018-03-14 08:19] LABS: URINE APPEARANCE BLOODY (CLEAR); URINE COLOR DARK RED (YELLOW)
[2018-03-14 08:26] LABS: URINE RBC TNTC /hpf (0-2)
[2018-03-14 08:30] LABS: BASO # 0.02 K/mm3 (0.0-2.0); BASO % 0.2 % (0.0-3.0); EOS # 0.1 (0.0-0.7); EOS % 1.1 % (1.5-5.0); GRAN # 7.05 (1.4-6.5); GRAN % 76.3 % (50.0-68.0); HEMOGLOBIN 12.7 g/dL (14.0-18.0); LYMPH # 1.3 (1.2-3.4); LYMPH % 13.7 % (22.0-35.0); MEAN CELL VOLUME 98.9 fl (80.0-105.0); MEAN CORPUSCULAR HEMOGLOBIN 33.6 pg (25.0-35.0); MEAN PLATELET VOLUME 10.6 fl (7.0-11.0); MONO # 0.8 (0.1-0.6); MONO % 8.7 % (1.0-6.0); RBC 3.78 10^6/uL (3.5-6.1); RED CELL DISTRIBUTION WIDTH 15.3 % (11.5-14.5); WHITE BLOOD COUNT 9.2 10^3/ul (4.5-11.0)
[2018-03-14 08:35] LABS: INR 2.78 (0.93-1.08); PARTIAL THROMBOPLASTIN TIME 43.8 Seconds (25.1-36.5); PROTHROMBIN TIME 32.7 SECONDS (9.4-12.5)
[2018-03-14 08:37] LABS: ALB/GLOB RATIO 1.1 (1.1-1.8)
[2018-03-14 08:39] LABS: ALBUMIN 3.8 g/dL (3.0-4.8); ALT/SGPT 51 U/L (7-56); AST/SGOT 47 U/L (17-59); BLOOD UREA NITROGEN 15 mg/dL (7-21); CALCIUM 8.5 mg/dL (8.4-10.5); GFR NON-AFRICAN AMERICAN 52
[2018-03-14] MEDS ORDERED: Morphine 4 mg/ml ISec IVP STA (09:05)
[2018-03-14] MEDS ORDERED: Sodium Chloride 0.9% 1,000 ML IV STA (09:05)
[2018-03-14] MEDS ORDERED: Morphine 4 mg/ml ISec ONE ×3 (09:08→17:09)
[2018-03-14] MEDS ORDERED: cefTRIAXone 1 gm 1 GM/100 ML BAG IVPB SCH (10:15)
[2018-03-14] MEDS ORDERED: Morphine 2 mg/ml ISec IVP ONE (12:37)
--- NOTE | 2018-03-14 13:22 | RAD ---
Date of service: 03/14/2018 HISTORY: Pre procedure COMPARISON: 04/01/2016 TECHNIQUE: Chest PA and lateral FINDINGS: LUNGS: No active pulmonary disease. PLEURA: No significant pleural effusion identified. No pneumothorax apparent. CARDIOVASCULAR: Mild cardiomegaly. Moderate vascular congestion OSSEOUS STRUCTURES: No significant abnormalities. VISUALIZED UPPER ABDOMEN: Normal. OTHER FINDINGS: Pacemaker IMPRESSION: Moderate vascular congestion
[2018-03-14] MEDS: Digoxin 125 mcg (0.125 mg) Tab PO SCH (14:23)
[2018-03-14] MEDS: Insulin Reg-LOW-Coverage SC SCH ×2 (14:24→22:20)
[2018-03-14] MEDS: Levothyroxine 25 MCG TAB PO SCH (14:24)
[2018-03-14] MEDS ORDERED: Pneumococcal 23-Valent Vaccine IM ONE (15:00)
[2018-03-14] MEDS ORDERED: Morphine 4 mg/ml ISec IVP PRN (15:48)
[2018-03-14] MEDS ORDERED: Sodium Chloride 0.9% 1,000 ML IV SCH (16:00)
[2018-03-14] MEDS ORDERED: Midazolam 2 MG/2 ML VIAL ONE ×2 (16:03→16:59)
[2018-03-14] MEDS ORDERED: cefTRIAXone (Rocephin) 1 gm Inj ONE (16:04)
[2018-03-14] MEDS ORDERED: cefTRIAXone 1 GM in NS 100 ML BAG IVPB ONE (16:05)
[2018-03-14] MEDS ORDERED: Propofol 10 mg/ml Inj (20 ML) ONE (16:20)
[2018-03-14] MEDS ORDERED: Metoprolol 1 mg/ml Inj IVP ONE (16:26)
[2018-03-14] MEDS ORDERED: Liquid Adhesive TOP ONE (16:28)
--- NOTE | 2018-03-14 16:42 | HP ---
HISTORY OF PRESENT ILLNESS: The patient I have known for many years. I do house calls on him. He has multiple chronic issues from hypertension, hypothyroid, hematuria in the past. He has a pacemaker for AFib. He is on Coumadin and he is an 87-year-old man, who has got difficulty urinating, when he had hematuria. No fever, chills. He is in the emergency room with bright red gross blood in the Boykin catheter after a Boykin was placed. PAST MEDICAL HISTORY: He has hypertension, pacemaker. He has hypothyroidism. He has arthritis, hematuria. He had a pacemaker implanted. No other surgeries. He has had bradycardia and asystole in the past. FAMILY HISTORY: Hypertension in the family. SOCIAL HISTORY: Never smoked. He does drink wine daily. ALLERGIES: NO KNOWN DRUG ALLERGIES. MEDICATIONS: On Coumadin, Synthroid, Norvasc, hypertension, digoxin for AFib, hydrochlorothiazide, Imdur for CAD, lisinopril, and Lopressor. REVIEW OF SYSTEMS: No acute vision or hearing changes. No shortness of breath or cough. No chest pain or palpitations. No abdominal pain, nausea, vomiting, constipation. He is having dysuria and hematuria after the Boykin catheter was placed. No back pain or neck pain. No apparent rashes or ulcers. No headaches or dizziness. Not anxious or depressed. PHYSICAL EXAMINATION: VITAL SIGNS: He has a 98.8 temp, 67 pulse, 18 respiratory rate, 168/92 blood pressure. He did not take his blood pressure meds this morning. 98% O2 sat on room air. GENERAL: He is alert and oriented x3, well appearing, nontoxic in the [facility] in the ER. HEENT: Head is atraumatic, normocephalic. Extraocular muscles are intact. Pupils are equal, reactive to light and accommodation. Throat is moist. NECK: Supple. HEART: Regular rate. Normal S1 and S2. LUNGS: Decreased breath sounds, but clear to auscultation bilaterally. ABDOMEN: Mild tenderness in the suprapubic area, little distended. Boykin catheter is in place with gross hematuria. EXTREMITIES: No edema of the lower extremities. NEUROLOGIC: GCS is 15. Cranial nerves II through XII grossly intact. Speech is normal. SKIN: Warm and dry. No rashes or ulcers appreciated. PSYCHIATRIC: Alert and oriented x3. LYMPHATICS: Thyroid midline. No palpable appreciable lymphadenopathy at this time. LABORATORY DATA: He had multiple tests done. He has a 9.2 white count, 12.7 hemoglobin, 37.4 hematocrit with 200 platelets. 2.78 INR. He is on Coumadin. I will stop the Coumadin. Put him on Lovenox starting it tomorrow. He has a 141 sodium, potassium 3.6, BUN 50, creatinine 1.3, GFR is greater than 60, sugar is 138, calcium is 8.5, total bili is 1.6, AST is 47, ALT is 51, alk phos 76, total protein 7.1, albumin is 3.8. He has a urine that has gross blood, too numerous to count, large blood, small bili, 100 high in the glucose. IMPRESSION: He is going to have a consult with Dr. Momin. He will be on IV fluids. I gave him a dose of Rocephin just to make sure we are not missing urinary tract infection. Put him back on his blood pressure pills. He has a Boykin in place. We will watch his labs tomorrow. He is here for gross hematuria, abdominal pain, and dysuria. Dieter Griggs DO
--- NOTE | 2018-03-14 16:51 | CARD ---
APPROVED REPORT Date of service: 03/14/2018 EXAM: Two-dimensional and M-mode echocardiogram with Doppler and color Doppler. INDICATION Pre-Op 2D DIMENSIONS Left Atrium (2D)5.0 (1.6-4.0cm)IVSd1.8 (0.7-1.1cm) LVDd4.3 (3.9-5.9cm)PWd1.6 (0.7-1.1cm) LVDs2.8 (2.5-4.0cm)FS (%) 35.6 % LVEF (%)65.3 (>50%) M-Mode DIMENSIONS Aortic Root3.50 (2.2-3.7cm)Aortic Cusp Exc.1.20 (1.5-2.0cm) Aortic Valve AoV Peak Nfapxssr980.0cm/Doni Peak GR.19mmHgLVOT Peak Lmvyergu542.0cm/s LVOT VTI18.30cm Mitral Valve E/A ratio0.0 TDI E/Lateral E'0.0E/Medial E'0.0 Tricuspid Valve TR Peak [id number]/sRAP [id number] Peak Gr.44mmHg [id number] LEFT VENTRICLE The left ventricle is normal size. There is moderate concentric left ventricular hypertrophy. The left ventricular function is normal. The left ventricular ejection fraction is within the normal range. There is normal LV segmental wall motion. RIGHT VENTRICLE The right ventricle is normal size. There is normal right ventricular wall thickness. The right ventricular systolic function is normal. There is a pacemaker lead in the right ventricle. ATRIA The left atrium is moderately dilated. The right atrium is mildly dilated. AORTIC VALVE The aortic valve is moderately sclerotic. There is moderate aortic regurgitation. MITRAL VALVE The mitral valve is mildly thickened. Mitral regurgitation is mild. There is no mitral valve stenosis. TRICUSPID VALVE The tricuspid valve is normal in structure. There is moderate tricuspid regurgitation. There is moderate pulmonary hypertension. GREAT VESSELS The aortic root is normal in size. The IVC is normal in size and collapses >50% with inspiration. <Conclusion> The left ventricle is normal size. There is moderate concentric left ventricular hypertrophy. The left ventricular function is normal. The left ventricular ejection fraction is within the normal range. The aortic valve is moderately sclerotic. There is moderate aortic regurgitation. Mitral regurgitation is mild. There is moderate tricuspid regurgitation. There is moderate pulmonary hypertension.
[2018-03-14] MEDS ORDERED: Morphine 4 mg/ml ISec IVP ONE (16:55)
[2018-03-14] MEDS ORDERED: Midazolam 2 MG/2 ML VIAL IV ONE (17:04)
[2018-03-14] MEDS ORDERED: Midazolam 2 MG/2 ML VIAL IVP ONE (17:06)
[2018-03-14] MEDS ORDERED: Morphine 4 mg/ml ISec IV ONE (17:10)
[2018-03-14] MEDS ORDERED: HYDROmorphone 1 mg/ml ISec IVP STA (17:15)
[2018-03-14] MEDS ORDERED: HYDROmorphone 1 mg/ml ISec IVP ONE ×2 (17:18→17:42)
[2018-03-14] MEDS ORDERED: HYDROmorphone 1 mg/ml ISec ONE ×2 (17:19→17:42)
--- NOTE | 2018-03-14 18:56 | CARD ---
APPROVED REPORT Date of service: 03/14/2018 EKG Measurement Heart [id number] MN 156P [id number] <Conclusion> Demand pacemaker, interpretation is based on intrinsic rhythm A Fib, PVCs vs aberrancy Abnormal ECG
[2018-03-14] MEDS: Morphine 2 mg/ml ISec IVP PRN (19:55)
--- NOTE | 2018-03-14 23:58 | CON ---
DATE: 03/14/2018 CARDIOLOGY CONSULTATION REASON FOR CONSULTATION: Preoperative evaluation prior to cystoscopy and history of single-chamber ventricular pacemaker placement. HISTORY OF PRESENT ILLNESS: The patent is an 87-year-old male who has a history of single-chamber ventricular pacemaker placement many years in the past, has history of hypertension and hypothyroidism, presented because of daljit hematuria and is being evaluated for cystoscopy this afternoon. The patient denies any chest pain and is unaware of any history of heart attack in the past. SOCIAL HISTORY: Nonsmoker, nondrinker. REVIEW OF SYSTEMS: No fever or chills. No chest pain. No shortness of breath. No dizziness or syncope. MEDICATIONS: Digoxin 0.125 mg daily, hydrochlorothiazide 25 mg once a day, Imdur 60 mg once daily, Lopressor 25 mg once a day, Lovenox 40 mg subcutaneous once a day, Norvasc 5 mg once a day, Rocephin 1 g intravenously daily, normal saline 75 mL an hour, Synthroid 25 mcg once a day, Zestril 20 mg once a day. PHYSICAL EXAMINATION: GENERAL: The patient is an elderly male who does not appear to be in any distress. VITAL SIGNS: Blood pressure 156/65, heart rate 62, temperature 98.1, respirations 20. HEENT: Pale conjunctivae. CHEST: Clear. HEART: S1, S2 regular. ABDOMEN: Soft. GENITOURINARY: Daljit hematuria is noted in the Boykin catheter connected to the urine reservoir. EXTREMITIES: No edema. LABORATORY DATA: Hemoglobin and hematocrit 12.7 and 37.4, white count and platelet count are within normal limits. SMA-7 is within normal limits except for glucose of 138, total bilirubin slightly elevated at 1.6. INR is 2.78. PTT 43.8. Chest x-ray revealed cardiomegaly, prominent bronchovascular marking, single-chamber ventricular pacemaker leads. . EKG revealed ventricular pacemaker with adequate pacing and sensing, underlying reason is atrial fibrillation, PVCs versus aberrancy. Echocardiographic study was on urgent basis prior to the cystoscopy and the study was consistent with marked concentric LVH with normal ejection fraction, moderate sclerotic aortic valve with moderate aortic insufficiency, moderate pulmonary hypertension. ASSESSMENT: 1. Iatrogenic coagulopathy. 2. Daljit hematuria. 3. Chronic atrial fibrillation. 4. Moderate pulmonary hypertension. 5. Moderate aortic insufficiency. 6. History of ventricular pacemaker placement, which is adequately functioning. CONDITIONS: Oral meds are currently on hold. I will discontinue Lovenox, although it is also on hold. Case was discussed with the Anesthesia team. The patient can undergo cystoscopy from the cardiac point of view with postprocedural telemetry monitoring. I will obtain serum digoxin level. Cabrera Jara MD
[2018-03-15] MEDS ORDERED: Albuterol-Ipratrop 3 mg / 0.5 (3 ml) UD IH STA (06:04)
[2018-03-15] MEDS: Morphine 2 mg/ml ISec IVP PRN (06:09)
[2018-03-15 06:58] LABS: HEMOGLOBIN 12.2 g/dL (14.0-18.0); MEAN CELL VOLUME 102.7 fl (80.0-105.0); MEAN CORPUSCULAR HEMOGLOBIN 33.5 pg (25.0-35.0); MEAN CORPUSCULAR HGB CONC 32.6 g/dl (31.0-37.0); MEAN PLATELET VOLUME 11.3 fl (7.0-11.0); RBC 3.64 10^6/uL (3.5-6.1); WHITE BLOOD COUNT 20.5 10^3/ul (4.5-11.0)
[2018-03-15 07:18] LABS: ALB/GLOB RATIO 1.1 (1.1-1.8); ALBUMIN 3.7 g/dL (3.0-4.8); CALCIUM 8.1 mg/dL (8.4-10.5)
[2018-03-15 07:32] LABS: INR 2.3 (0.93-1.08); PROTHROMBIN TIME 26.9 SECONDS (9.4-12.5)
[2018-03-15] MEDS ORDERED: Sodium Chloride 0.45% 1,000 ML IV SCH (08:00)
[2018-03-15] MEDS: Insulin Reg-LOW-Coverage SC SCH ×4 (08:10→21:57)
[2018-03-15] MEDS ORDERED: VANCOMYCIN IVPB ONE (08:50)
[2018-03-15] MEDS ORDERED: SODIUM CHLORIDE 0.9% IVPB ONE (08:50)
[2018-03-15] MEDS: Digoxin 125 mcg (0.125 mg) Tab PO SCH (09:00)
[2018-03-15] MEDS ORDERED: Albuterol-Ipratrop 3 mg / 0.5 (3 ml) UD IH PRN (09:01)
--- NOTE | 2018-03-15 09:16 | RAD ---
Date of service: 03/15/2018 HISTORY: ABNORMAL LUNG SOUNDS COMPARISON: No prior. FINDINGS: LUNGS: There is a new infiltrate at the right lung base. There is improvement in the interstitial densities seen previously PLEURA: No significant pleural effusion identified, no pneumothorax apparent. CARDIOVASCULAR: Mild cardiomegaly. Single lead pacemaker OSSEOUS STRUCTURES: No significant abnormalities. VISUALIZED UPPER ABDOMEN: Normal. OTHER FINDINGS: None. IMPRESSION: There is a new infiltrate at the right lung base. There is improvement in the interstitial densities seen previously
[2018-03-15] MEDS: Levothyroxine 25 MCG TAB PO SCH (09:41)
[2018-03-15] MEDS ORDERED: Enoxaparin 40 mg Syringe SC SCH (10:00)
--- NOTE | 2018-03-15 10:12 | PN ---
DATE: 03/15/2018 SUBJECTIVE: I saw him resting comfortably in bed this morning. He is alert. Not talking. He is on arm restraints. I will discontinue them. Apparently, he was very out of it last night. He was given Ativan last night. He is on digoxin. He was given Dilaudid and Haldol last night, I am not sure who ordered that, insulin coverage, HydroDIURIL, Imdur, Lopressor, some morphine for pain, Norvasc 5 mg, Rocephin at this time, Synthroid, Versed and Zestril. PHYSICAL EXAMINATION: VITAL SIGNS: He has a 97.8 temp, 60 pulse, 121/61 blood pressure, 21 respiratory rate, 96% O2 sat on nasal cannula. HEENT: Head is atraumatic, normocephalic. HEART: Regular rate. LUNGS: Decreased breath sounds, but clear. ABDOMEN: Soft. EXTREMITIES: No edema. PSYCHIATRIC: He is out of it mentally at this time. LABORATORY DATA: White count 20,000, it went from 9 to 20, I will call Infectious Disease, to change the antibiotics. He has a 12.2 hemoglobin, 37.4 hematocrit with 221 platelets. His INR is 2.3, holding the Coumadin. He has a 143 sodium, potassium 4.3, BUN 22, creatinine 1.9. He is going to have IV fluids. GFR is 34, sugar is 143, calcium is 8.1, total bili is 0.8, AST is 37, ALT is 45, alkaline phosphatase is 70, total protein 7.1. ASSESSMENT AND PLAN: He is being seen by, I think, Dr. Momin, the urologist, but I do not see the name in the study notes. Dr. Momin is consulted. Dr. Maury Booker is consulted. Dr. Ledesma is consulted. Adjust his medications, decrease his pain medications, try his head a little bit, it is very cloudy this morning, but he could be septic. This is a patient who came in with urinary retention, hematuria, atrial fibrillation, probable sepsis. Dieter Griggs DO [facility] # [id number] MTDD
--- NOTE | 2018-03-15 11:52 | PN ---
DATE: 03/15/2018 FOLLOWUP SUBJECTIVE: The patient underwent cystoscopy today. He is currently short of breath and appears congested and experiencing cough. He denies retrosternal chest pain. PHYSICAL EXAMINATION: VITAL SIGNS: Blood pressure 121/61, heart rate 60, temperature 97.8, respirations 21. HEENT: Normocephalic. CHEST: Absent breath sound over the right base. HEART: S1 and S2 regular. EXTREMITIES: No edema. LABORATORY DATA: Today's hemoglobin and hematocrit 12.2 and 37.4, white count 20.5, platelet count . Today's SMA-7: Sodium 143, potassium 4.3, chloride 105, CO2 of 27, glucose 143, BUN 22, creatinine 1.9. Chest x-ray revealed a mild CHF with right lower lobe infiltrate. ASSESSMENT: 1. Chronic atrial fibrillation. 2. Iatrogenic coagulopathies and daljit hematuria. 3. Status post cystoscopy. 4. Questionable right lower lobe pneumonia. 5. Moderate aortic insufficiency. 6. Moderate pulmonary hypertension. 7. Prerenal azotemia. RECOMMENDATIONS: Continue current albuterol inhaler. Discontinue hydrochlorothiazide. Continue Lopressor 25 mg twice a day, Norvasc at 5 mg once a day, IV vancomycin was started at 1.2 g given as single dose, continue Zestril 20 mg daily. Case was discussed with [facility]. Consider obtaining 2 sets of blood cultures. Cabrera Jara MD
[2018-03-15] MEDS: Cefepime 1gm in NS 100ml 1 GM/100 ML BAG IVPB SCH (13:13)
[2018-03-15] MEDS: Albuterol-Ipratrop 3 mg / 0.5 (3 ml) UD IH SCH ×2 (13:51→21:10)
--- NOTE | 2018-03-15 13:51 | CON ---
DATE: 03/15/2018 PULMONARY CONSULTATION REASON FOR CONSULTATION: Pneumonia. REFERRING PHYSICIAN: Dieter Griggs DO HISTORY OF PRESENT ILLNESS: History is obtained via extensive discussion with the nurse. I have also reviewed the chart at length. The patient is not an adequate historian at this point in time. The patient is a chronically ill 87-year-old male, with past medical history significant for hypertension, hypothyroidism, atrial fibrillation, permanent pacemaker, hematuria in the past, who presented to [facility]] with gross hematuria. In the emergency room, a Boykin catheter was placed, with gross bright red blood noted. The patient was thus admitted for additional evaluation. Again, I did discuss the case with the nurse at length. The nurse does note that the patient has been "congested" this morning. He is also mildly short of breath, but certainly in no acute distress. There is no history of cough or sputum production. There is no history of chest pain, coughing up of blood, or chest pain - made worse with deep respirations. There is no history of temperatures, chills or infectious exposure. There is no history of night sweats, weight loss or appetite change prior to the above events. No history of calf pains. No history of syncope or diaphoresis. No history of recent travel or trauma. REVIEW OF SYSTEMS: No history of nausea, vomiting or diarrhea. No new musculoskeletal complaints. Rest of the review of systems is negative. ALLERGIES: NO KNOWN ALLERGIES. SOCIAL HISTORY: Positive for tobacco and negative for alcohol. FAMILY HISTORY: No inheritable diseases. HOME MEDICATIONS: Include Coumadin, Lopressor, lisinopril, Synthroid, isosorbide mononitrate, hydrochlorothiazide, Digitek, Norvasc. PHYSICAL EXAMINATION GENERAL: The patient is mildly short of breath, but in no acute distress. He is not using accessory muscles for breathing. VITAL SIGNS: Temperature is 97.8, pulse is 65, respirations 20/22, blood pressure 121/61. Oxygen saturation on nasal cannula is 96%-98%. HEENT: Normocephalic, atraumatic. No JVD. CARDIOVASCULAR: Systolic ejection murmur at the lower left sternal border. No S3 gallop. LUNGS: Crackles noted at the right lower lobe. Mild bilateral rhonchi. No wheezing. EXTREMITIES: No clubbing, cyanosis or edema is noted. Calves are nontender to palpation. GI: Abdomen is soft, nontender and nondistended. Bowel sounds are positive. SKIN: No acute rash. NEUROLOGIC: Limited at the present time. PERTINENT LABORATORY DATA: Chest x-ray was repeated today and reviewed. There is a new right lower lobe infiltrate noted. CBC: White count 20.5K, hemoglobin 12.2, hematocrit 37.4, platelets of 221,000. INR 2.3. Complete metabolic profile: BUN 22, creatinine 1.9, glucose 143, calcium 8.1. Rest of the metabolic profile is within normal limits. IMPRESSION: 1. Probable aspiration pneumonia - right lower lobe. 2. Mild bronchospasm. 3. Hematuria. 4. Anemia. 5. Renal insufficiency. PLAN: Again, I did discuss the case with the nurse at length. I have also reviewed the chart at length. As above, the patient did present to [facility]3] with gross hematuria. He did undergo a cystoscopy yesterday. As above, the nurse noted the patient to be "congested" this morning. Repeat chest x-ray was done, and showed a new right lower lobe infiltrate. Reynolds cultures have been ordered and will be analyzed when feasible. Dr. Ledesma (Infectious Disease) has been called on the case for antibiotic usage. On physical exam, there is mild bronchospasm noted. However, there is no significant alveolar-arterial gradient. Nebulizer treatments have been started. I will also start aspiration precautions. Genitourinary evaluation is also noted. Additional pulmonary intervention will be based on the clinical status of the patient. I would also like to repeat an x-ray in a few days - for comparison. I will discuss the above with Dr. Griggs in the next few moments. Thank you very much for this pulmonary consultation. Severino Diamond MD [facility]
--- NOTE | 2018-03-15 14:28 | CP.PCM.CON ---
History of Present Illness - History of Present Illness History of Present Illness: 87 year old male with PMH of HTN, hypothyroidism, S/P pacemaker placement, [place] [facility] [place] of blood in the urine and difficulty in urination. The patient is also having shortness of breath and cough. The patient denies fever or chills, no chest pain, no headache or dizziness, no abdominal pain, no diarrhea. CXR done is showing new infiltrate on the right base. Infectious diseases consult is requested to further evaluate and manage. Review of Systems - Review of Systems All systems: reviewed and no additional remarkable complaints except (as per HPI ) Past Patient History - Infectious Disease Hx of Infectious Diseases: None - Tetanus Immunizations Tetanus Immunization: Unknown - Past Social History Smoking Status: Former Smoker - CARDIAC Hx Pacemaker: Yes - PULMONARY Hx Respiratory Disorders: Yes (USED TO SMOKE CIGARETTES QUIT) - NEUROLOGICAL Hx Paralysis: No - HEENT Hx HEENT Problems: No - RENAL Hx Chronic Kidney Disease: No - ENDOCRINE/METABOLIC Hx Endocrine Disorders: Yes Hx Hypothyroidism: Yes - HEMATOLOGICAL/ONCOLOGICAL Hx Blood Transfusions: No Hx Blood Transfusion Reaction: (N/A) - INTEGUMENTARY Hx Dermatological Problems: No - MUSCULOSKELETAL/RHEUMATOLOGICAL Hx Musculoskeletal Disorders: Yes - GASTROINTESTINAL Hx Gastrointestinal Disorders: No - GENITOURINARY/GYNECOLOGICAL Hx Genitourinary Disorders: Yes Hx Hematuria: Yes - PSYCHIATRIC Hx Emotional Abuse: No Hx Physical Abuse: No Hx Substance Use: No - SURGICAL HISTORY Hx Surgeries: Yes (PACEMAKER) - ANESTHESIA Hx Anesthesia Reactions: Yes (BRADYCARDIA; ASYSTOLE) Hx Malignant Hyperthermia: No Meds Allergies/Adverse Reactions: Allergies Allergy/AdvReac Type Severity Reaction Status Date / Time No Known Allergies Allergy Verified 03/14/18 11:46 - Medications Medications: Current Medications Albuterol/Ipratropium (Duoneb 3 Mg/0.5 Mg (3 Ml) Ud) 3 ml IH [id number] SURI Albuterol/Ipratropium (Duoneb 3 Mg/0.5 Mg (3 Ml) Ud) 3 ml IH Q2H PRN PRN Reason: Shortness of Breath Amlodipine Besylate (Norvasc) 5 mg PO DAILY [facility] Last Admin: 03/15/18 09:41 Dose: 5 mg Digoxin (Digoxin) 0.125 mg PO DAILY [facility] [place] Last Admin: 03/14/18 14:23 Dose: Not Given Hydrochlorothiazide (Hydrodiuril) 25 mg PO DAILY [facility] [place] Last Admin: 03/14/18 14:23 Dose: Not Given Sodium Chloride (Sodium Chloride 0.45%) 1,000 mls @ 40 mls/hr IV .Q24H [facility] Vancomycin HCl 1.2 gm/ Sodium (Chloride) 500 mls @ 170 mls/hr IVPB ONCE ONE PRN Reason: Protocol Stop: 03/15/18 11:46 Last Admin: 03/15/18 09:41 Dose: 170 mls/hr Cefepime HCl (Maxipime 1gm) 1 gm in 100 mls @ 100 mls/hr IVPB Q24H [facility] PRN Reason: Protocol Insulin Human Regular (Humulin R Low) 0 units SC ACHS SURI PRN Reason: Protocol Last Admin: 03/14/18 22:20 Dose: Not Given Isosorbide Mononitrate (Imdur) 60 mg PO DAILY [facility] [place] Last Admin: 03/14/18 14:24 Dose: Not Given Levothyroxine Sodium (Synthroid) 25 mcg PO DAILY [facility] Last Admin: 03/15/18 09:41 Dose: 25 mcg Lisinopril (Zestril) 20 mg PO DAILY [facility] Last Admin: 03/15/18 09:41 Dose: 20 mg Metoprolol Tartrate (Lopressor) 25 mg PO BID [facility] Last Admin: 03/15/18 09:41 Dose: 25 mg Morphine Sulfate (Morphine) 2 mg IVP Q6H PRN PRN Reason: Pain, severe (8-10) Last Admin: 03/15/18 06:09 Dose: 2 mg Physical Exam - Constitutional Appears: Chronically Ill - Head Exam Head Exam: NORMAL INSPECTION - Neck Exam Neck exam: Negative for: Meningismus - Respiratory Exam Respiratory Exam: Decreased Breath Sounds - Cardiovascular Exam Cardiovascular Exam: +S1, +S2 - GI/Abdominal Exam GI & Abdominal Exam: Soft. absent: Tenderness Results - Vital Signs Recent Vital Signs: Last Vital Signs Temp 97.8 F 03/14/18 23:38 Pulse 65 03/15/18 06:00 Resp 21 03/14/18 23:38 BP 146/72 03/15/18 09:40 Pulse Ox 96 03/14/18 23:38 - Labs Result Diagrams: 03/15/18 06:00 03/15/18 06:00 Labs: Laboratory Results - last 24 hr 0703/14/18 03/15/18 12:34 22:00 06:00 WBC 20.5 H D RBC 3.64 Hgb 12.2 L Hct 37.4 L MCV 102.7 D MCH 33.5 MCHC 32.6 RDW 16.0 H Plt Count 221 MPV 11.3 H PT INR Sodium Potassium Chloride Carbon Dioxide Anion Gap BUN Creatinine Est GFR ( Amer) Est GFR (Non-Af Amer) POC Glucose (mg/dL) 141 H 161 H Random Glucose Calcium Total Bilirubin AST ALT Alkaline Phosphatase NT-Pro-B Natriuret Pep Total Protein Albumin Globulin Albumin/Globulin Ratio Digoxin 03/15/18 03/15/18 03/15/18 06:00 06:00 06:00 WBC RBC Hgb Hct MCV MCH MCHC RDW Plt Count MPV PT 26.9 H INR 2.30 H Sodium 143 Potassium 4.3 Chloride 105 Carbon Dioxide 27 Anion Gap 15 BUN 22 H Creatinine 1.9 H Est GFR ( Amer) 41 Est GFR (Non-Af Amer) 34 POC Glucose (mg/dL) Random Glucose 143 H Calcium 8.1 L Total Bilirubin 0.8 AST 37 ALT 45 Alkaline Phosphatase 70 NT-Pro-B Natriuret Pep Total Protein 7.1 Albumin 3.7 Globulin 3.4 Albumin/Globulin Ratio 1.1 Digoxin 0.5 L 03/15/18 03/15/18 03/15/18 07:24 09:00 09:04 WBC RBC Hgb Hct MCV MCH MCHC RDW Plt Count MPV PT INR Sodium Potassium Chloride Carbon Dioxide Anion Gap BUN Creatinine Est GFR ( Amer) Est GFR (Non-Af Amer) POC Glucose (mg/dL) 139 H 197 H Random Glucose Calcium Total Bilirubin AST ALT Alkaline Phosphatase NT-Pro-B Natriuret Pep 3190 H Total Protein Albumin Globulin Albumin/Globulin Ratio Digoxin Assessment & Plan - Assessment and Plan (Free Text) Plan: Assessment systemic inflammatory response syndrome, consider sepsis due to right sided HCAP hematuria, etiology to be determined chronic renal failure HTN hypothyroidism S/P pacemaker placement Plan Started on Cefepime and Doxycycline and gave a dose of IV Vancomycin pending blood and urine cx, PCT; reviewed PCT follow up Urology evaluation will monitor clinically
[2018-03-16] MEDS: Albuterol-Ipratrop 3 mg / 0.5 (3 ml) UD IH SCH ×4 (03:05→20:26)
--- NOTE | 2018-03-16 07:12 | PN ---
DATE: 03/16/2018 SUBJECTIVE: The patient appears comfortable this morning. He is not short of breath at rest. He is somewhat confused. OBJECTIVE: VITAL SIGNS: Temperature is 98.2, pulse 61, respirations 18, blood pressure 160/80, oxygen saturation on room air is 96%. HEENT: Normocephalic, atraumatic. No JVD. CARDIOVASCULAR: Systolic ejection murmur at the lower left sternal border. No S3 gallop. LUNGS: Crackles noted at the right lower lobe. Less rhonchi. No wheezing. EXTREMITIES: No clubbing, cyanosis or edema. Calves are nontender to palpation. GI: Abdomen is soft, nontender and nondistended. Bowel sounds are positive. SKIN: No acute rash. NEUROLOGIC: Limited at the present time. IMPRESSION AND PLAN: 1. Probable aspiration pneumonia - right lower lobe. 2. Mild bronchospasm. 3. Hematuria. 4. Anemia. 5. Renal insufficiency. The patient appears comfortable this morning. He is not short of breath at rest. He does remain somewhat confused. I did discuss the case with the night nurse at length. The night nurse stated that the patient was very confused overnight. She reports no other pulmonary problems. On physical exam, there is certainly less bronchospasm noted. In addition, the oxygen saturation on room air is now 96%. I will continue with the current nebulizer treatments for now. I will also continue with the aspiration precautions. The patient remains on antibiotic therapy - as per infectious disease. There are no temperatures noted. Repeat a.m. labs are pending. Clinical status of the patient is certainly improved. However, the overall status/prognosis for this patient does remain guarded. I will discuss the above with Dr. Griggs. Severino Diamond MD MTDD
[2018-03-16 07:47] LABS: INR 2.43 (0.93-1.08); PROTHROMBIN TIME 28.4 SECONDS (9.4-12.5)
[2018-03-16 07:49] LABS: HEMOGLOBIN 10.5 g/dL (14.0-18.0); MEAN CELL VOLUME 102.2 fl (80.0-105.0); MEAN CORPUSCULAR HGB CONC 32.3 g/dl (31.0-37.0); MEAN PLATELET VOLUME 11.4 fl (7.0-11.0); RBC 3.18 10^6/uL (3.5-6.1); WHITE BLOOD COUNT 19.1 10^3/ul (4.5-11.0)
[2018-03-16 08:00] LABS: ALB/GLOB RATIO 1.1 (1.1-1.8); ALBUMIN 3.4 g/dL (3.0-4.8); CALCIUM 8.4 mg/dL (8.4-10.5)
--- NOTE | 2018-03-16 09:05 | PN ---
DATE: 03/16/2018 SUBJECTIVE: The patient is in bed, in no acute distress, nontoxic, seen earlier today in [facility], bed 2. PHYSICAL EXAMINATION: VITAL SIGNS: On exam, temperature is 98, blood pressure is 160/80, respiratory rate of 21. HEENT: Examination of HEENT is unremarkable. NECK: Supple. LUNGS: Have decreased breath sounds. HEART: Normal S1, S2. ABDOMEN: Soft, nontender. LABORATORY DATA: Laboratory examination reveals a white count of 19,000, hemoglobin of 10, platelets of 172. Creatinine is 2.3. Microbiology as noted and Dr. Diamond's progress note from today is reviewed and he feels the patient has a right lower lobe probable aspiration pneumonia with bronchospasm and hematuria, anemia. ASSESSMENT AND PLAN: An 87-year-old male seen earlier today in [facility], bed 2 with history of hypertension, hypothyroidism, has a pacemaker and admitted with urinary dysuria and difficulty urinating, shortness of breath and cough, with sepsis, with right lower lobe aspiration pneumonia and renal failure and hypertension, hypothyroidism. He has a pacemaker. The patient also with hematuria, started on cefepime and doxycycline, day #2. Pending blood culture, urine culture results. The patient did have a procalcitonin of 0.29 which speaks against bacterial pneumonia. In the chest x-ray from yesterday as read by Dr. Diamond, has noted new right lower lobe infiltrate. Ebenezer Ledesma MD
[2018-03-16] MEDS: Cefepime 1gm in NS 100ml 1 GM/100 ML BAG IVPB SCH (10:19)
[2018-03-16] MEDS: Levothyroxine 25 MCG TAB PO SCH (10:20)
[2018-03-16] MEDS: Insulin Reg-LOW-Coverage SC SCH ×4 (10:22→23:25)
[2018-03-16] MEDS: Digoxin 125 mcg (0.125 mg) Tab PO SCH (10:50)
[2018-03-16 10:53] VITALS: PULSE 62
--- NOTE | 2018-03-16 14:04 | PN ---
DATE: 03/16/2018 SUBJECTIVE: The patient is confused, agitated, and is a one-to-one watch. He had a 12-beat run of ventricular tachycardia. PHYSICAL EXAMINATION: VITAL SIGNS: Blood pressure 144/44, heart rate 62, temperature 98.2, respirations 18. HEENT: Pale conjunctivae. CHEST: Clear. HEART: S1 and S2 regular. EXTREMITIES: Trace leg edema. LABORATORY DATA: Hemoglobin and hematocrit 10.5 and 32.5, white count 19.1, platelet count 172,000. Today's SMA-7: Sodium 144, potassium 3.6, chloride 105, CO2 of 28, glucose 132, BUN 32, creatinine 2.3, magnesium is 1.9. Today's INR is 2.43. Blood cultures are negative after 24 hours. ASSESSMENT: 1. Nonsustained ventricular tachycardia. 2. Borderline hypokalemia. 3. Chronic atrial fibrillation. 4. Iatrogenic coagulopathy with daljit hematuria. 5. Moderate aortic insufficiency. 6. Moderate pulmonary hypertension. RECOMMENDATIONS: Continue hydrochlorothiazide 25 mg daily, Imdur 60 mg once a day, IV Maxipime 1 g daily, Norvasc 5 mg daily, Zestril 20 mg daily, Synthroid 25 mcg once a day. The patient is currently receiving IV potassium replacement, totaling 20 mEq. Discontinue digoxin. Cabrera Jara MD
--- NOTE | 2018-03-16 14:42 | PN ---
DATE: 03/16/2018 SUBJECTIVE: I saw Ricardo in his room. He has a 1:1 on. He is very physically strong. He is out of it mentally. He is giving the nurses a very hard time. He is confused from his infection. He has an aspiration pneumonia. He has hematuria, status post dysuria, status post cysto. He is being seen by Infectious Disease, Pulmonary, Urology. I had Neurology and Psychiatry on board for his change in mentation. He is presently sleeping. The nurses have asked me not to wake him up, I will not. He is on a 1:1 with an also. PHYSICAL EXAMINATION: VITAL SIGNS: He has 98.2 temp, 61 pulse, 160/80 blood pressure, 18 respiratory rate, 96% O2 sat on room air. HEENT: Head is atraumatic, normocephalic. HEART: Regular rate. LUNGS: Decreased breath sounds. He has aspiration pneumonia. He is having a very bad bacterial pneumonia. ABDOMEN: Soft. EXTREMITIES: No edema. LABORATORY DATA: He has 20,000 white count yesterday, but it is down to 19,000, it is still very high. He is very septic. Hemoglobin is 10.5, hematocrit 32.5, platelets are 172. INR is 2.43. He has 144 sodium, potassium 3.6, BUN 32, creatinine 2.3. He is on IV fluids. I am also going to call on Renal for his acute kidney injury. He is not doing well. GFR is 27, last blood sugar is 133, calcium is 8.4, magnesium 1.9, total bili is 13, AST is 29, ALT is 41, alkaline phosphatase 56, total protein is 6.5. Urine with large blood. PLAN: He has multiple issues. We will try to fix each one and we are going to do aggressive treatment and care and I am going to call in Renal for his acute kidney injury. We will check his labs tomorrow and hopefully, he will improve with the antibiotics. Dieter Griggs DO MTDNeo
[2018-03-16] MEDS: Morphine 2 mg/ml ISec IVP PRN ×2 (17:14→23:31)
--- NOTE | 2018-03-16 21:26 | CP.PCM.CON ---
History of Present Illness - History of Present Illness History of Present Illness: Nephrology Consultation Note: Assessment: critical Acute Kidney Injury (N17.9) ? 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 mg proteinuria (R80.9) likely due to HTN/age related decline Anemia, hypokalemia, AMS, hematuria, pneumonia Plan No acute need for renal replacement therapy at this time. Hypertension control with meds as ordered. hold ACEI and hctz due to ABEL Monitor Input/Output, daily weights and renal function with basic metabolic panel increase IVF to 100 ml/hr once off CBI, will check urine analysis, spot protein/creatinine and albumin/ creatinine ratio, Renal sonogram once stable. send in AM: CPK, uric acid. Check for 25-OH vitamin D, iPTH, phosphorus level Dose meds/antibiotics for reduced GFR. Avoid fleets enema/magnesium based laxatives. Avoid nephrotoxins/NSAIDs/ iodinated contrast (unless needed emergently) Glycemic control Further work up/management as per primary team Thanks for allowing me to participate in care of your patient. Will follow patient with you. Please call if any Qs Dr Sher Wallace Office: [phone] Chief Complaint; unable reason for consult: ABEL source of Info: EMR HPI: Pt is a 87 M with hx of hypertension (years) hypothyroidism presented with complaints of blood in urine and underwent cystoscopy and on CBI for hematuria. also found to have pneumonia. renal consult for ABEL. pt with baseline ckd stage 3 with cr 1.3 at baseline. he was deliriuos and unable to provide any hx Denies OTC/herbal meds or NSAIDs No recent iodinated contrast exposure. Noted obvious episodes of high BP in 190s and normal BP. ROS: unable to obtain from pt due to AMS Physical Examination: General Appearance: uncomfortable, in no acute respiratory distress, ill appearing, delirious Vitals reviewed and noted as below Head; Atraumatic, normocephalic ENT: no ulcers no thrush. Tongue is midline. Oropharynx: no rash or ulcers. EYES: Pupils are equal, round and reactive to light accommodation. Eye muscles and extraocular movement intact. Sclera is anicteric. Neck; supple no lymphadenopathy, no thyromegaly or bruit Lungs: Normal respiratory rate/effort. Breath sounds bilateral equal and clear anteriorly Heart: Normal rate. s1s2 normal. No rub or gallop. Extremities: no edema. No varicose veins Neurological: Patient is restless and delirious Skin: Warm and dry. Normal turgor. No rash. Palpitation: Normal elasticity for age Abdomen: Abdomen is soft. Bowel sounds +. There is no abdominal tenderness, no guarding/rigidity no organomegaly Psych: no insight and agitated, on 1;1 MSK: no joint tenderness or swelling. Digits and nails normal, no deformity : kidney or bladder not palpable but has abdi Labs/imaging reviewed. Past medical history, past surgical history, family history, social history, allergy reviewed and noted as below Family hx: no hx of CKD. Rest non-contributory echo moderate pHTN with normal LVEF Past Patient History - Infectious Disease Hx of Infectious Diseases: None - Tetanus Immunizations Tetanus Immunization: Unknown - Past Social History Smoking Status: Former Smoker - CARDIAC Hx Pacemaker: Yes - PULMONARY Hx Respiratory Disorders: Yes (USED TO SMOKE CIGARETTES QUIT) - NEUROLOGICAL Hx Paralysis: No - HEENT Hx HEENT Problems: No - RENAL Hx Chronic Kidney Disease: No - ENDOCRINE/METABOLIC Hx Endocrine Disorders: Yes Hx Hypothyroidism: Yes - HEMATOLOGICAL/ONCOLOGICAL Hx Blood Transfusions: No Hx Blood Transfusion Reaction: (N/A) - INTEGUMENTARY Hx Dermatological Problems: No - MUSCULOSKELETAL/RHEUMATOLOGICAL Hx Musculoskeletal Disorders: Yes - GASTROINTESTINAL Hx Gastrointestinal Disorders: No - GENITOURINARY/GYNECOLOGICAL Hx Genitourinary Disorders: Yes Hx Hematuria: Yes - PSYCHIATRIC Hx Emotional Abuse: No Hx Physical Abuse: No Hx Substance Use: No - SURGICAL HISTORY Hx Surgeries: Yes (PACEMAKER) - ANESTHESIA Hx Anesthesia Reactions: Yes (BRADYCARDIA; ASYSTOLE) Hx Malignant Hyperthermia: No Meds Allergies/Adverse Reactions: Allergies Allergy/AdvReac Type Severity Reaction Status Date / Time No Known Allergies Allergy Verified 03/14/18 11:46 - Medications Medications: Current Medications Albuterol/Ipratropium (Duoneb 3 Mg/0.5 Mg (3 Ml) Ud) 3 ml IH [id number] [facility] [place] Last Admin: 03/16/18 20:26 Dose: 3 ml Albuterol/Ipratropium (Duoneb 3 Mg/0.5 Mg (3 Ml) Ud) 3 ml IH Q2H PRN PRN Reason: Shortness of Breath Amlodipine Besylate (Norvasc) 5 mg PO DAILY [facility] [place] Last Admin: 03/16/18 10:20 Dose: 5 mg Doxycycline Hyclate (Doryx) 100 mg PO Q12 SURI PRN Reason: Protocol Last Admin: 03/16/18 10:20 Dose: 100 mg Sodium Chloride (Sodium Chloride 0.45%) 1,000 mls @ 40 mls/hr IV .Q24H SURI Cefepime HCl (Maxipime 1gm) 1 gm in 100 mls @ 100 mls/hr IVPB Q24H SURI PRN Reason: Protocol Last Admin: 03/16/18 10:19 Dose: 100 mls/hr Insulin Human Regular (Humulin R Low) 0 units SC ACHS SURI PRN Reason: Protocol Last Admin: 03/16/18 12:27 Dose: Not Given Isosorbide Mononitrate (Imdur) 60 mg PO DAILY [facility] [place] Last Admin: 03/16/18 10:51 Dose: 60 mg Levothyroxine Sodium (Synthroid) 25 mcg PO DAILY [facility] [place] Last Admin: 03/16/18 10:20 Dose: 25 mcg Metoprolol Tartrate (Lopressor) 25 mg PO BID [facility] [place] Last Admin: 03/16/18 18:33 Dose: Not Given Morphine Sulfate (Morphine) 2 mg IVP Q6H PRN PRN Reason: Pain, severe (8-10) Last Admin: 03/16/18 17:14 Dose: 2 mg Quetiapine Fumarate (Seroquel) 12.5 mg PO Q12 PRN; Protocol PRN Reason: Agitation Last Admin: 03/16/18 18:55 Dose: 12.5 mg Results - Vital Signs Recent Vital Signs: Last Vital Signs Temp 98.1 F 03/16/18 12:00 Pulse 144 H 03/16/18 18:00 Resp 19 03/16/18 12:00 BP 138/54 L 03/16/18 12:00 Pulse Ox 96 03/16/18 06:00 - Labs Result Diagrams: 03/16/18 07:00 03/16/18 07:00 Labs: Laboratory Results - last 24 hr 03/15/18 03/16/18 03/16/18 21:47 07:00 07:00 WBC 19.1 H RBC 3.18 L Hgb 10.5 L Hct 32.5 L MCV 102.2 MCH 33.0 MCHC 32.3 RDW 16.0 H Plt Count 172 MPV 11.4 H PT INR Sodium 144 Potassium 3.6 Chloride 105 Carbon Dioxide 28 Anion Gap 15 BUN 32 H Creatinine 2.3 H Est GFR ( Amer) 33 Est GFR (Non-Af Amer) 27 POC Glucose (mg/dL) 138 H Random Glucose 132 H Calcium 8.4 Magnesium Total Bilirubin 1.3 AST 29 ALT 41 Alkaline Phosphatase 56 Total Protein 6.5 Albumin 3.4 Globulin 3.1 Albumin/Globulin Ratio 1.1 03/16/18 03/16/18 03/16/18 07:00 07:00 07:23 WBC RBC Hgb Hct MCV MCH MCHC RDW Plt Count MPV PT 28.4 H INR 2.43 H Sodium Potassium Chloride Carbon Dioxide Anion Gap BUN Creatinine Est GFR ( Amer) Est GFR (Non-Af Amer) POC Glucose (mg/dL) 143 H Random Glucose Calcium Magnesium 1.9 Total Bilirubin AST ALT Alkaline Phosphatase Total Protein Albumin Globulin Albumin/Globulin Ratio 03/16/18 03/16/18 11:29 16:33 WBC RBC Hgb Hct MCV MCH MCHC RDW Plt Count MPV PT INR Sodium Potassium Chloride Carbon Dioxide Anion Gap BUN Creatinine Est GFR ( Amer) Est GFR (Non-Af Amer) POC Glucose (mg/dL) 133 H 212 H Random Glucose Calcium Magnesium Total Bilirubin AST ALT Alkaline Phosphatase Total Protein Albumin Globulin Albumin/Globulin Ratio
[2018-03-16] MEDS ORDERED: Sodium Chloride 0.45% 1,000 ML IV SCH (21:30)
[2018-03-17] MEDS: Albuterol-Ipratrop 3 mg / 0.5 (3 ml) UD IH SCH ×4 (01:32→21:40)
[2018-03-17 07:44] LABS: HEMOGLOBIN 9.6 g/dL (14.0-18.0); INR 2.01 (0.93-1.08); MEAN CELL VOLUME 101.4 fl (80.0-105.0); MEAN CORPUSCULAR HEMOGLOBIN 33.6 pg (25.0-35.0); MEAN CORPUSCULAR HGB CONC 33.1 g/dl (31.0-37.0); MEAN PLATELET VOLUME 10.8 fl (7.0-11.0); PROTHROMBIN TIME 23.4 SECONDS (9.4-12.5); RBC 2.86 10^6/uL (3.5-6.1); RED CELL DISTRIBUTION WIDTH 16.2 % (11.5-14.5); WHITE BLOOD COUNT 16.1 10^3/ul (4.5-11.0)
--- NOTE | 2018-03-17 07:50 | PN ---
DATE: 03/17/2018 PULMONARY NOTE SUBJECTIVE: The patient is slightly lethargic this morning. He did receive Ativan during the last shift (discussed with nurse). He is not short of breath at rest. PHYSICAL EXAMINATION: VITAL SIGNS: Temperature is 97.7, pulse 72, respirations 18/20, blood pressure 160/69. Oxygen saturation on room air is 92%-96%. HEENT: Normocephalic, atraumatic. No JVD. CARDIOVASCULAR: Systolic ejection murmur at the lower left sternal border. No S3 gallop. LUNGS: Less crackles noted at the right lower lobe. Less rhonchi. No wheezing. EXTREMITIES: No clubbing, cyanosis or edema. Calves are nontender to palpation. GI: Abdomen is soft, nontender and nondistended. Bowel sounds are positive. SKIN: No acute rash. NEUROLOGIC: Limited at the present time. IMPRESSION: 1. Probable aspiration pneumonia - right lower lobe. 2. Mild bronchospasm. 3. Hematuria. 4. Anemia. 5. Renal insufficiency. PLAN: The patient appears slightly lethargic this morning. He did receive Ativan during the past shift - discussed with nurse. He is not short of breath at rest. On physical exam, his bronchospasm is definitely less. In addition, the alveolar-arterial gradient is also less. I will continue the current nebulizer treatments for now. I will also continue with the aspiration precautions. I would continue with the antibiotic coverage as per Infectious disease. Input by Dr. Ledesma is noted. Repeat a.m. labs are pending. Inputs by Renal and Cardiology are also noted. Clinical status of the patient does appear improved - compared to a few days ago. However, his future status/prognosis does remain very guarded. I will discuss the above with Dr. Griggs. Severino Diamond MD MTDNeo
[2018-03-17 07:53] LABS: ALBUMIN 3.2 g/dL (3.0-4.8); CALCIUM 8.5 mg/dL (8.4-10.5); URIC ACID 9.9 mg/dL (3.5-8.5)
[2018-03-17] MEDS: Insulin Reg-LOW-Coverage SC SCH ×4 (08:29→17:50)
[2018-03-17] MEDS: Cefepime 1gm in NS 100ml 1 GM/100 ML BAG IVPB SCH (09:14)
--- NOTE | 2018-03-17 09:27 | PN ---
DATE: 03/17/2018 SUBJECTIVE: The patient is in bed, in no acute distress, nontoxic. PHYSICAL EXAMINATION: VITAL SIGNS: Temperature is 97, blood pressure is 106/40, respiratory rate of 20, heart rate of 91. HEENT: Examination of HEENT is unremarkable. NECK: Supple. LUNGS: Have decreased breath sounds. HEART: Normal S1, S2. ABDOMEN: Soft, nontender. LABORATORY DATA: Laboratory examination reveals a white count of 16,000, hemoglobin of 9, platelets of 172. Chemistries reveals a BUN of 42, creatinine of 2.1, procalcitonin is 0.29. Urinalysis is noted and digoxin is noted. Microbiology reveals the blood cultures are no growth. Dr. Diamond's note from this morning is reviewed and appreciated. ASSESSMENT AND PLAN: An 87-year-old male with history of hypertension, hypothyroidism, pacemaker, admitted with urinary tract infections and dysuria, difficulty urinating and shortness of breath and cough and with sepsis with a right lower lobe aspiration pneumonia and renal failure, hypertension, hypothyroidism and pacemaker, also had hematuria. Currently on cefepime and doxycycline day #3 with negative blood cultures. The urine culture is pending with a procalcitonin 0.29. Overall prognosis is quite poor. Should consider hospice care for this end-stage patient. Ebenezer Ledesma MD
[2018-03-17] MEDS: Levothyroxine 25 MCG TAB PO SCH (11:31)
--- NOTE | 2018-03-17 12:28 | PN ---
DATE: 03/17/2018 SUBJECTIVE: I saw Ricardo in bed. He is not arousable for me. He was a little violent and strong with the nurses; they needed to had him on one-to-one. He is still not waking up. LABORATORY DATA: He has a 16.1 white count, 9.6 hemoglobin, 29 hematocrit with a 172 platelets. The white count is down from 20 down to 16. His INR is 2. Chemistries: Sodium 144, potassium 3.9, BUN 42; creatinine 2.1, he has got a little bit better than when he came in, it is 2.3 and it is coming down slowly. Last blood sugar was 149 which is good. Uric acid is 9.9, which is sanam high. Calcium is 8.5, phosphorus is 2.7, total bilirubin is 1.6, AST is 42, ALT is 45, alkaline phosphatase 52, total protein is 6.4. Urine is large blood. Toxicology: His digoxin is 0.5. He is currently on doxycycline, DuoNeb, Imdur, Lopressor, Maxipime IV, morphine as needed, Norvasc, Seroquel, IV fluids and Synthroid. He is being seen by Pulmonary for aspiration pneumonia, Renal for renal insufficiency, Cardiology, Infectious Disease for infection and waiting for Neurology to come in for his change in mentation. I am hoping he wakes up tomorrow. We will continue with aggressive treatment and care. change in mentation, hematuria, urinary retention, hypertension, acute kidney injury, atrial fibrillation, sepsis now. Dieter Griggs DO MTDNeo
[2018-03-17] MEDS: Morphine 2 mg/ml ISec IVP PRN (12:29)
[2018-03-17] MEDS ORDERED: Ergocalciferol 50,000 Intl Units Cap PO SCH (16:30)
--- NOTE | 2018-03-17 16:30 | CP.PCM.PN ---
Subjective - Date & Time of Evaluation Date of Evaluation: 03/17/18 Time of Evaluation: 16:27 - Subjective Subjective: Nephrology Consultation Note: Assessment: critical Acute Kidney Injury (N17.9) ? 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 mg proteinuria (R80.9) likely due to HTN/age related decline Anemia, hypokalemia, AMS, hematuria, pneumonia Plan No acute need for renal replacement therapy at this time. Hypertension control with meds as ordered. hold ACEI and hctz due to ABEL. increase norvasc 10 mg/day and added prn hydralazine Monitor Input/Output, daily weights and renal function with basic metabolic panel continue IVF as 0.45% @ 75 ml/hr started Iron, MVI and Vit D supplements once off CBI, will check urine analysis, spot protein/creatinine and albumin/ creatinine ratio, Renal sonogram once stable. send in AM: CPK, uric acid. Check for 25-OH vitamin D, iPTH, phosphorus level Dose meds/antibiotics for reduced GFR. Avoid fleets enema/magnesium based laxatives. Avoid nephrotoxins/NSAIDs/ iodinated contrast (unless needed emergently) Glycemic control Further work up/management as per primary team Thanks for allowing me to participate in care of your patient. Will follow patient with you. Please call if any Qs Dr Sher Wallace Office: [phone] Chief Complaint; unable reason for consult: ABEL source of Info: EMR HPI: Pt is a 87 M with hx of hypertension (years) hypothyroidism presented with complaints of blood in urine and underwent cystoscopy and on CBI for hematuria. also found to have pneumonia. renal consult for ABEL. pt with baseline ckd stage 3 with cr 1.3 at baseline. he was deliriuos and unable to provide any hx Denies OTC/herbal meds or NSAIDs No recent iodinated contrast exposure. Noted obvious episodes of high BP in 190s and normal BP. ROS: unable to obtain from pt due to AMS Physical Examination: General Appearance: comfortable, in no acute respiratory distress, ill appearing , delirium better toda Vitals reviewed and noted as below Head; Atraumatic, normocephalic ENT: no ulcers no thrush. Tongue is midline. Oropharynx: no rash or ulcers. EYES: Pupils are equal, round and reactive to light accommodation. Eye muscles and extraocular movement intact. Sclera is anicteric. Neck; supple no lymphadenopathy, no thyromegaly or bruit Lungs: Normal respiratory rate/effort. Breath sounds bilateral with rales Heart: Normal rate. s1s2 normal. No rub or gallop. Extremities: no edema. No varicose veins Neurological: Patient is more calm and less delirious Skin: Warm and dry. Normal turgor. No rash. Palpitation: Normal elasticity for age Abdomen: Abdomen is soft. Bowel sounds +. There is no abdominal tenderness, no guarding/rigidity no organomegaly Psych: no insight and agitated, on 1;1 MSK: no joint tenderness or swelling. Digits and nails normal, no deformity : kidney or bladder not palpable but has abdi Labs/imaging reviewed. Past medical history, past surgical history, family history, social history, allergy reviewed and noted as below Family hx: no hx of CKD. Rest non-contributory echo moderate pHTN with normal LVEF Objective - Vital Signs/Intake and Output Vital Signs (last 24 hours): Temp Pulse Resp BP Pulse Ox 97.9 F 62 20 161/59 H 92 L 03/17/18 12:00 03/17/18 12:00 03/17/18 12:00 03/17/18 12:00 03/17/18 06:00 Intake and Output: 03/17/18 03/17/18 06:59 18:59 Intake Total 480 Output Total 30512 Balance - - Medications Medications: Current Medications Albuterol/Ipratropium (Duoneb 3 Mg/0.5 Mg (3 Ml) Ud) 3 ml IH [id number] [facility] Last Admin: 03/17/18 13:14 Dose: 3 ml Albuterol/Ipratropium (Duoneb 3 Mg/0.5 Mg (3 Ml) Ud) 3 ml IH Q2H PRN PRN Reason: Shortness of Breath Amlodipine Besylate (Norvasc) 5 mg PO DAILY [facility] Last Admin: 03/17/18 11:48 Dose: 5 mg Doxycycline Hyclate (Doryx) 100 mg PO Q12 SURI PRN Reason: Protocol Last Admin: 03/17/18 11:31 Dose: 100 mg Ferrous Gluconate (Fergon) 324 mg PO TID [facility] Last Admin: 03/17/18 11:31 Dose: 324 mg Cefepime HCl (Maxipime 1gm) 1 gm in 100 mls @ 100 mls/hr IVPB Q24H [facility] PRN Reason: Protocol Last Admin: 03/17/18 09:14 Dose: 100 mls/hr Sodium Chloride (Sodium Chloride 0.45%) 1,000 mls @ 75 mls/hr IV .[id number] [facility] Last Admin: 03/17/18 01:54 Dose: 75 mls/hr Insulin Human Regular (Humulin R Low) 0 units SC ACHS [facility] PRN Reason: Protocol Isosorbide Mononitrate (Imdur) 60 mg PO DAILY [facility] Levothyroxine Sodium (Synthroid) 25 mcg PO DAILY [facility] Last Admin: 03/17/18 11:31 Dose: 25 mcg Metoprolol Tartrate (Lopressor) 25 mg PO BID [facility] Last Admin: 03/17/18 11:49 Dose: 25 mg Morphine Sulfate (Morphine) 2 mg IVP Q6H PRN PRN Reason: Pain, severe (8-10) Last Admin: 03/17/18 12:29 Dose: 2 mg Quetiapine Fumarate (Seroquel) 12.5 mg PO Q12 PRN; Protocol PRN Reason: Agitation Last Admin: 03/16/18 18:55 Dose: 12.5 mg Vitamin B Complex/Vit C/Folic Acid (Nephro-Armaan) 1 tab PO 0800 [facility] - Labs Labs: 03/17/18 07:00 03/17/18 07:00 PT 23.4 SECONDS (9.4-12.5) H 03/17/18 07:00 INR 2.01 (0.93-1.08) H 03/17/18 07:00 APTT 43.8 Seconds (25.1-36.5) H 03/14/18 08:15
--- NOTE | 2018-03-18 00:30 | CON ---
DATE: 03/17/2018 HISTORY OF PRESENT ILLNESS: This is an 87-year-old male with past medical history of hypertension, hypothyroidism, status post permanent pacemaker, was admitted with UTI and difficulty breathing and cough, and also had pneumonia, hypertension, hypothyroidism, pacemaker, and had hematuria, and called to evaluate him for altered mental status. PAST MEDICAL HISTORY: As above. SOCIAL HISTORY: Does not smoke. Does not drink. REVIEW OF SYSTEMS: On 10-point review of systems, patient is confused and not following commands. PHYSICAL EXAMINATION: NEUROLOGIC: Patient is awake, follows 1-step commands sometimes and not following most of the commands. No facial asymmetry. Patient appears very drowsy. Pupils reactive. Spontaneous movement of the extremity noted. Deep tendon reflexes 1+. Plantars downgoing. Sensory appears intact, possibly. Cerebellar, gait was deferred. IMPRESSION: Encephalopathy, possibly toxic, sepsis. Workup in progress. We also ordered the CAT scan of the head without contrast and we will do EEG. Antoni Etienne MD
[2018-03-18] MEDS: Albuterol-Ipratrop 3 mg / 0.5 (3 ml) UD IH SCH ×4 (03:05→20:15)
[2018-03-18 07:11] LABS: HEMOGLOBIN 9.5 g/dL (14.0-18.0); MEAN CELL VOLUME 103.2 fl (80.0-105.0); MEAN CORPUSCULAR HEMOGLOBIN 33.3 pg (25.0-35.0); MEAN CORPUSCULAR HGB CONC 32.3 g/dl (31.0-37.0); MEAN PLATELET VOLUME 10.9 fl (7.0-11.0); RBC 2.85 10^6/uL (3.5-6.1); RED CELL DISTRIBUTION WIDTH 16.4 % (11.5-14.5); WHITE BLOOD COUNT 12.1 10^3/ul (4.5-11.0)
--- NOTE | 2018-03-18 07:27 | PN ---
DATE: 03/18/2018 PULMONARY NOTE SUBJECTIVE: The patient appears comfortable this morning. He is not short of breath at rest. GENERAL: He is awake and alert this morning. He remains confused. VITAL SIGNS: Temperature is 98, pulse on the monitor is 88, respiratory rate 18, blood pressure 97/48. Oxygen saturation on room air is 94-97%. HEENT: Normocephalic, atraumatic. No JVD. CARDIOVASCULAR: Systolic ejection murmur at the lower left sternal border. No S3 gallop. LUNGS: Less crackles - right lower lobe. Less rhonchi. No wheezing. EXTREMITIES: No clubbing, cyanosis or edema. Calves are nontender to palpation. GI: Abdomen is soft, nontender and nondistended. Bowel sounds are positive. SKIN: No acute rash. NEUROLOGIC: Exam limited at the present time. IMPRESSION: 1. Probable aspiration pneumonia - right lower lobe. 2. Mild bronchospasm. 3. Hematuria. 4. Anemia. 5. Renal insufficiency. PLAN: The patient appears comfortable this morning. He is not short of breath at rest. He is more awake and alert this morning. He remains confused. I did discuss the case with the night nurse at length. The night nurse stated that the patient had a mostly uneventful night. On physical exam, his bronchospasm is less. In addition, the alveolar-arterial gradient is also less. I will continue with the current nebulizer treatments for now. The patient also remains on aspiration precautions. The patient remains on antibiotic therapy - as per Infectious Disease. There are no temperatures noted. The leukocytosis is resolving. Inputs by Renal and Cardiology are also noted. Clinical status of the patient is certainly improved - compared to the initial presentation. However, again, the overall status/prognosis for this patient does remain very guarded. I will discuss the above with Dr. Griggs. Severino Diamond MD MTDD
[2018-03-18 07:36] LABS: ALBUMIN 3.1 g/dL (3.0-4.8); CALCIUM 8.3 mg/dL (8.4-10.5)
[2018-03-18 07:39] LABS: INR 1.61 (0.93-1.08); PROTHROMBIN TIME 18.7 SECONDS (9.4-12.5)
[2018-03-18] MEDS: Insulin Reg-LOW-Coverage SC SCH ×5 (07:57→22:06)
--- NOTE | 2018-03-18 08:13 | CON ---
DATE: 03/16/2018 HISTORY OF PRESENT ILLNESS: The patient is an 87-year-old [place] male with no known formal psychiatric history, who has been in on the medical floor after he presented to the ER with hematuria, difficulty urinating . The patient has been restless, confused, and agitated on the unit and Psychiatry was requested to evaluate and treat for likely delirium. I reviewed recent notes as well as prior records and patient does not appear to have any psychiatric history except for a consultation by Dr. De La Rosa in 12/2015 for very similar presentation. The patient was status post cystoscopy at that time as well. The patient is primarily B[place]an speaking and we utilized B[place]wanan speaking staff to aide in translation this morning and the patient is generally cooperative, calm, and in good control during the course of my interview. The patient is disoriented, repeating [place] the supermarket [place] times even when this provider has explained his current circumstances and location. At one point, the patient reported he was at home. The patient does not know the current year or month. He continues to complain of shortness of breath, though does appear comfortable and pleasant during the course of my interview. He denies any depression or symptoms of anxiety. He denies any paranoia. He does not look hypervigilant and delusional. Acute paranoid delusions were not elicited during the interview this morning. The patient indicates willingness to cooperate with the staff when I requested that he remain calm and that he does not try to get out of bed. Thus far, he does appear to show some improvement compared to the behavior described in the nursing notes last night. Affect is mildly constricted. He does not appear to be actively hallucinating. His insight and judgment are considered poor; however, impulse control appears to be improving a little bit. SOCIAL HISTORY: Largely unknown; however, the patient indicates that he was born in [place]. He has been ; however, indicated that his had lost her mind at some point. I am not clear what the patient was referring to. The patient reports that he has 2 children and two grandchildren. The patient reports that he used to work in [employer], which explains why he kept repeating that he was in a supermarket when we were asking questions about orientation. PSYCHIATRIC HISTORY: The patient does not have any formal psychiatric history. Review of records does not show any prior psychiatric hospitalizations. The patient does, however, have a prior consultation with Dr. De La Rosa in 12/2015 for very similar presentation for delirium anesthesia. Vitals and labs reviewed. RELEVANT PSYCHIATRIC MEDICATIONS: The patient does not appear to be on any relevant psychiatric medications, but he did receive Ativan 1 mg and Geodon 10 mg IM last night due to his agitation. IMPRESSION: Delirium. The patient has multiple medical issues as well as anesthesia, hyperactive, though improving at this time, rule out contribution of underlying dementia. RECOMMENDATIONS: The patient is an 87-year-old and application of sedating medication must be conservative. I would recommend Seroquel at 12.5 mg every 12 hours p.r.n. as the patient becomes agitated again. This should primarily be used at nighttime as it likely would be sedating for patient during the day. I would discourage use of benzos as they can worsen confusion and cause disinhibition among the elderly delirious and demented. Psychiatry will follow up every other day and monitor the patient's behavior and tolerance to medications. Most specifically, the patient will be followed up on 03/18/2018. Katya Vasquez MD
--- NOTE | 2018-03-18 08:24 | PCM.URO ---
Urology Progress Note - Objective Lab Studies: Reviewed (see previous notes discontinue abdi pt with history of bladder mass /suspect cancer he needs a turbt -- if son allows and if he is medically cleared) Lab Results Last 24 Hours: Laboratory Results - last 24 hr 03/17/18 03/17/18 03/17/18 07:00 11:35 16:15 WBC RBC Hgb Hct MCV MCH MCHC RDW Plt Count MPV PT INR Sodium Potassium Chloride Carbon Dioxide Anion Gap BUN Creatinine Est GFR ( Amer) Est GFR (Non-Af Amer) POC Glucose (mg/dL) 108 124 H Random Glucose Uric Acid Calcium Magnesium Total Bilirubin AST ALT Alkaline Phosphatase Total Protein Albumin Globulin Albumin/Globulin Ratio 25-OH Vitamin D Total 26.4 L 03/17/18 03/18/18 03/18/18 21:21 06:30 06:30 WBC 12.1 H D RBC 2.85 L Hgb 9.5 L Hct 29.4 L MCV 103.2 MCH 33.3 MCHC 32.3 RDW 16.4 H Plt Count 191 MPV 10.9 PT INR Sodium 146 Potassium 3.4 L Chloride 107 Carbon Dioxide 30 Anion Gap 13 BUN 44 H Creatinine 1.7 H Est GFR ( Amer) 46 Est GFR (Non-Af Amer) 38 POC Glucose (mg/dL) 130 H Random Glucose 99 Uric Acid 10.0 H Calcium 8.3 L Magnesium 2.1 Total Bilirubin 0.9 AST 45 ALT 37 Alkaline Phosphatase 55 Total Protein 6.3 Albumin 3.1 Globulin 3.2 Albumin/Globulin Ratio 1.0 L 25-OH Vitamin D Total 03/18/18 06:30 WBC RBC Hgb Hct MCV MCH MCHC RDW Plt Count MPV PT 18.7 H INR 1.61 H Sodium Potassium Chloride Carbon Dioxide Anion Gap BUN Creatinine Est GFR ( Amer) Est GFR (Non-Af Amer) POC Glucose (mg/dL) Random Glucose Uric Acid Calcium Magnesium Total Bilirubin AST ALT Alkaline Phosphatase Total Protein Albumin Globulin Albumin/Globulin Ratio 25-OH Vitamin D Total Intake & Output: Intake & Output 03/17/18 03/18/18 03/18/18 18:59 06:59 18:59 Intake Total 16632 19248 Output Total 13701 Balance -1905 61811 Weight 189 lb 9.6 oz Intake: Oral 120 Other [id number] Output: Urine 34786 Urine, Voided 74236 Other: # Voids Urine, Voided 7 Vital Signs: Vital Signs - 24 hr 03/17/18 03/17/18 03/17/18 10:00 11:48 11:49 Temperature Pulse Rate 70 69 69 Respiratory Rate Blood Pressure 168/64 H 168/64 H O2 Sat by Pulse Oximetry 03/17/18 03/17/18 03/17/18 12:00 14:00 18:00 Temperature 97.9 F 98.1 F Pulse Rate 62 60 63 Respiratory 20 18 Rate Blood Pressure 161/59 H 131/71 O2 Sat by Pulse 97 Oximetry 03/17/18 03/17/18 03/17/18 18:08 18:10 22:00 Temperature Pulse Rate 63 63 63 Respiratory Rate Blood Pressure 131/71 131/71 O2 Sat by Pulse Oximetry 03/17/18 03/18/18 03/18/18 23:49 02:00 06:00 Temperature 98.0 F 97.9 F Pulse Rate 60 109 H 68 Respiratory 18 18 Rate Blood Pressure 97/48 L 102/50 L O2 Sat by Pulse 94 L 96 Oximetry
[2018-03-18] MEDS ORDERED: Barium Sulfate Susp 2.1% w/v, 2.0% w/w 450 mL Bottle PO ONE (08:42)
[2018-03-18] MEDS: Cefepime 1gm in NS 100ml 1 GM/100 ML BAG IVPB SCH (10:30)
[2018-03-18] MEDS: Levothyroxine 25 MCG TAB PO SCH (10:58)
[2018-03-18] MEDS: Multivitamin Vitamin B Complex (Nephro-Vite) Tab PO SCH (10:58)
--- NOTE | 2018-03-18 11:17 | PN ---
DATE: 03/18/2018 SUBJECTIVE: I saw him this morning one to one. He was combative last night. This the first morning when he opened his eyes, shook my hands and I explained to him what was going on, he kind of understood. He was out of it for the last few days, so it is a good change. He is on IV fluids, Apresoline, Ativan. I added Colcrys for his elevated uric acid, direct. He is on Drisdol, albuterol, iron, insulin coverage, Imdur, Lopressor, Maxipime IV, morphine for pain, vitamins. He has had a potassium rider today for low potassium. He is on Seroquel, Synthroid. OBJECTIVE: VITAL SIGNS: Temperature 97.9, 68 pulse, 102/50 blood pressure, 18 respiratory rate, 96% O2 sat on room air. He did open his eyes and looked at me and shook my hand, that is the most he has given me. He said one word, I could understand what it was. HEENT: Head is atraumatic, normocephalic. HEART: Regular rate. LUNGS: Decreased breath sounds, but clear. ABDOMEN: Soft. EXTREMITIES: No edema. He has also been combative at nighttime. DATA: He has got 146 sodium; potassium 3.4, I will give him potassium rider. BUN 44, creatinine 1.7, it is a little bit better. His last blood sugar was 99. Uric acid went up to 10, I gave him some Colcrys. Calcium is 8.3, he is on calcium. Magnesium is 2.1, total bili is 0.9, AST is 45, ALT is 37, alkaline phosphatase 75, total protein 6.3. He has 12.1 white count, it was as high as 20, it is down to 12, the best it has been. Hemoglobin 9.5, 29.4 hematocrit with 199 platelets. His INR is down to 1.61. He is here for change in mentation, hematuria, hypertension, hypothyroid, sepsis, atrial fibrillation. My question, is this anticoagulation considering he has a bladder bleeding. He also has CBI with wine punch colored urine, I am going to hold off one more day on his Coumadin. He is still at 1.6. I will continue aggressive treatment and care. Dieter Griggs DO [facility] # [id number] MEDINA
--- NOTE | 2018-03-18 12:57 | CP.PCM.PN ---
Subjective - Date & Time of Evaluation Date of Evaluation: 03/18/18 Time of Evaluation: 12:55 - Subjective Subjective: Nephrology Consultation Note: Assessment: stable Acute Kidney Injury (N17.9) ? 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 mg proteinuria (R80.9) likely due to HTN/age related decline Anemia, hypokalemia, AMS, hematuria, pneumonia Hyperuricemia Plan No acute need for renal replacement therapy at this time. Hypertension control with meds as ordered. hold ACEI and hctz due to ABEL. increase norvasc 10 mg/day and added prn hydralazine Monitor Input/Output, daily weights and renal function with basic metabolic panel continue IVF as 0.45% @ 50-75 ml/hr. will d/c once oral intake adequate started Iron, MVI and Vit D supplements added allopurinol instead of colchicine Dose meds/antibiotics for reduced GFR. Avoid fleets enema/magnesium based laxatives. Avoid nephrotoxins/NSAIDs/ iodinated contrast (unless needed emergently) Glycemic control Further work up/management as per primary team Thanks for allowing me to participate in care of your patient. Will follow patient with you. Please call if any Qs Dr Sher Wallace Office: [phone] Chief Complaint; unable reason for consult: ABEL source of Info: EMR HPI: Pt is a 87 M with hx of hypertension (years) hypothyroidism presented with complaints of blood in urine and underwent cystoscopy and on CBI for hematuria. also found to have pneumonia. renal consult for ABEL. pt with baseline ckd stage 3 with cr 1.3 at baseline. he was deliriuos and unable to provide any hx Denies OTC/herbal meds or NSAIDs No recent iodinated contrast exposure. Noted obvious episodes of high BP in 190s and normal BP. ROS: unable to obtain from pt due to AMS Physical Examination: General Appearance: comfortable, in no acute respiratory distress, better appearing, delirium better today Vitals reviewed and noted as below Head; Atraumatic, normocephalic ENT: no ulcers no thrush. Tongue is midline. Oropharynx: no rash or ulcers. EYES: Pupils are equal, round and reactive to light accommodation. Eye muscles and extraocular movement intact. Sclera is anicteric. Neck; supple no lymphadenopathy, no thyromegaly or bruit Lungs: Normal respiratory rate/effort. Breath sounds bilateral with rales improved Heart: Normal rate. s1s2 normal. No rub or gallop. Extremities: no edema. No varicose veins Neurological: Patient is more calm and less delirious Skin: Warm and dry. Normal turgor. No rash. Palpitation: Normal elasticity for age Abdomen: Abdomen is soft. Bowel sounds +. There is no abdominal tenderness, no guarding/rigidity no organomegaly Psych: no insight and agitated, on 1;1 MSK: no joint tenderness or swelling. Digits and nails normal, no deformity : kidney or bladder not palpable Labs/imaging reviewed. Past medical history, past surgical history, family history, social history, allergy reviewed and noted as below Family hx: no hx of CKD. Rest non-contributory echo moderate pHTN with normal LVEF Objective - Vital Signs/Intake and Output Vital Signs (last 24 hours): Temp Pulse Resp BP Pulse Ox 97.3 F L 62 20 132/61 96 03/18/18 12:00 03/18/18 12:00 03/18/18 12:00 03/18/18 12:00 03/18/18 06:00 Intake and Output: 03/18/18 03/18/18 06:59 18:59 Intake Total 24384 40453 Output Total 37648 Balance -1905 46248 - Medications Medications: Current Medications Albuterol/Ipratropium (Duoneb 3 Mg/0.5 Mg (3 Ml) Ud) 3 ml IH [id number] [facility] Last Admin: 03/18/18 07:51 Dose: 3 ml Albuterol/Ipratropium (Duoneb 3 Mg/0.5 Mg (3 Ml) Ud) 3 ml IH Q2H PRN PRN Reason: Shortness of Breath Allopurinol (Zyloprim) 100 mg PO DAILY [facility] Amlodipine Besylate (Norvasc) 10 mg PO DAILY [facility] Last Admin: 03/18/18 10:58 Dose: 10 mg Doxycycline Hyclate (Doryx) 100 mg PO Q12 [facility] PRN Reason: Protocol Last Admin: 03/18/18 10:58 Dose: 100 mg Ergocalciferol (Drisdol 50,000 Intl Units Cap) 1 cap PO Q7D [facility] Last Admin: 03/17/18 18:10 Dose: 1 cap Ferrous Gluconate (Fergon) 324 mg PO TID [facility] Last Admin: 03/18/18 10:58 Dose: 324 mg Hydralazine HCl (Apresoline) 25 mg PO Q4 PRN PRN Reason: Other Cefepime HCl (Maxipime 1gm) 1 gm in 100 mls @ 100 mls/hr IVPB Q24H [facility] PRN Reason: Protocol Last Admin: 03/18/18 10:30 Dose: 100 mls/hr Sodium Chloride (Sodium Chloride 0.45%) 1,000 mls @ 75 mls/hr IV .[id number] [facility] Last Admin: 03/17/18 01:54 Dose: 75 mls/hr Insulin Human Regular (Humulin R Low) 0 units SC ACHS [facility] PRN Reason: Protocol Last Admin: 03/18/18 12:20 Dose: Not Given Isosorbide Mononitrate (Imdur) 60 mg PO DAILY [facility] Last Admin: 03/18/18 10:58 Dose: 60 mg Levothyroxine Sodium (Synthroid) 25 mcg PO 0600 [facility] Metoprolol Tartrate (Lopressor) 25 mg PO BID [facility] Last Admin: 03/18/18 10:58 Dose: 25 mg Morphine Sulfate (Morphine) 2 mg IVP Q6H PRN PRN Reason: Pain, severe (8-10) Last Admin: 03/17/18 12:29 Dose: 2 mg Quetiapine Fumarate (Seroquel) 12.5 mg PO Q12 PRN; Protocol PRN Reason: Agitation Last Admin: 03/17/18 18:10 Dose: 12.5 mg Vitamin B Complex/Vit C/Folic Acid (Nephro-Armaan) 1 tab PO 0800 [facility] Last Admin: 03/18/18 10:58 Dose: 1 tab - Labs Labs: 03/18/18 06:30 03/18/18 06:30 PT 18.7 SECONDS (9.4-12.5) H 03/18/18 06:30 INR 1.61 (0.93-1.08) H 03/18/18 06:30 APTT 43.8 Seconds (25.1-36.5) H 03/14/18 08:15
--- NOTE | 2018-03-18 13:17 | CT ---
Date of service: 03/18/2018 PROCEDURE: CT HEAD WITHOUT CONTRAST. HISTORY: AMS COMPARISON: 01/11/2016 TECHNIQUE: Axial computed tomography images were obtained through the head/brain without intravenous contrast. Radiation dose: Total exam DLP = 984 mGy-cm. This CT exam was performed using one or more of the following dose reduction techniques: Automated exposure control, adjustment of the mA and/or kV according to patient size, and/or use of iterative reconstruction technique. FINDINGS: HEMORRHAGE: No intracranial hemorrhage. BRAIN: No mass effect or edema. Mild atrophy. Mild chronic microvascular changes. VENTRICLES: Unremarkable. No hydrocephalus. CALVARIUM: Unremarkable. PARANASAL SINUSES: Unremarkable as visualized. No significant inflammatory changes. MASTOID AIR CELLS: Unremarkable as visualized. No inflammatory changes. OTHER FINDINGS: None IMPRESSION: No acute findings
--- NOTE | 2018-03-18 13:29 | CT ---
Date of service: 03/18/2018 PROCEDURE: CT Chest, Abdomen and Pelvis without intravenous contrast HISTORY: leukocytosis COMPARISON: None. TECHNIQUE: Radiation dose: Total exam DLP = 1445 mGy-cm. This CT exam was performed using one or more of the following dose reduction techniques: Automated exposure control, adjustment of the mA and/or kV according to patient size, and/or use of iterative reconstruction technique. FINDINGS: CT CHEST WITHOUT CONTRAST: LUNGS: There is a right lower lobe infiltrate with alveolar consolidation and a small right effusion MEDIASTINUM: Unremarkable. Normal caliber aorta and pulmonary arterial trunk. Normal size heart. LYMPH NODES: Unremarkable. PLEURA: Small bilateral pleural effusions right greater than left BONES: Unremarkable. OTHER FINDINGS: None. CT ABDOMEN AND PELVIS: LIVER: Unremarkable. No gross lesion or ductal dilatation. GALLBLADDER AND BILE DUCTS: Unremarkable. PANCREAS: Unremarkable. No gross lesion or ductal dilatation. SPLEEN: Unremarkable. ADRENALS: Unremarkable. No mass. KIDNEYS AND URETERS: Left-sided cysts. Nonobstructing 6 mm stone in the lower pole of the right kidney. No evidence of hydronephrosis VASCULATURE: Unremarkable. No aortic aneurysm. BOWEL: Unremarkable. No obstruction. No gross mural thickening. APPENDIX: Normal appendix. PERITONEUM: Unremarkable. No free fluid. No free air. LYMPH NODES: Unremarkable. No enlarged lymph nodes. BLADDER: There is dense material in the bladder consistent with blood clot. REPRODUCTIVE: Unremarkable. BONES: No acute fracture. OTHER FINDINGS: None. IMPRESSION: Probable blood clot and urinary bladder. No evidence of renal mass or hydronephrosis. Right lower lobe pneumonia and small bilateral pleural effusions
--- NOTE | 2018-03-18 14:19 | PN ---
DATE: 03/18/2018 NEUROLOGY FOLLOWUP CHIEF COMPLAINT: Followup for altered mentation. SUBJECTIVE: The patient is seen and examined at bedside, agitated and restless overnight. Had BP fluctuations. Nephrology is on board. His Norvasc was recently increased and was added hydralazine p.r.n. for his blood pressure control. He is currently on Seroquel 12.5 mg p.o. b.i.d. for agitation. Psychiatry has been seen the patient who agrees that the patient has had underlying delirium. Urology is on board for underlying hematuria. CT head showed no acute intracranial abnormality. PAST MEDICAL HISTORY: History of hypertension, chronic kidney disease. REVIEW OF SYSTEMS: Fourteen-point review of systems is negative except as per the HPI. ALLERGIES: NO KNOWN DRUG ALLERGIES. MEDICATIONS: Reviewed by nurses' reconciliation sheet. FAMILY HISTORY: Noncontributory. LABORATORY DATA: Sodium is 146, potassium 3.4, chloride 107, carbon dioxide 30, BUN of 44, creatinine 1.7, random glucose of 106. PHYSICAL EXAMINATION: VITAL SIGNS: Temperature 97.3, pulse rate of 62, blood pressure of 132/61, respiratory rate of 20, oxygen saturation 96% by room air. GENERAL: The patient is sitting up in bed, in no acute distress, lethargic. HEENT: Atraumatic, normocephalic. PERRLA. Extraocular muscles intact. NECK: Supple. No JVD, no adenopathy noted. LUNGS: Clear to auscultation. No adventitious sounds. HEART: S1, S2. Normal rate and rhythm. No murmurs, rubs or gallops. ABDOMEN: Soft, nontender and nondistended. Bowel sounds are present. EXTREMITIES: No clubbing. No cyanosis. Peripheral pulses 2+ felt bilaterally. NEUROLOGIC: The patient is lethargic, in no acute distress. Speech is hypophonic. No aphasia noted. Cranial nerves II through XII are intact. Motor exam: Moves all extremities equally. No pronator drift seen. Sensory exam: Withdraws on localized and noxious stimulus. DTRs are 1+ throughout. Coordination and gait deferred for now. ASSESSMENT AND PLAN: This is an 87-year-old man with history of hypertension, dyslipidemia, hyperuricemia, hypothyroidism, history of agitation in the past, who apparently came in for lethargy and gross hematuria, which is being followed by Urology. CAT scan of the head showed no acute intracranial abnormality. Has episodes of delirium, which is likely the source of his altered mental status, some underlying blood pressure fluctuations and possible underlying mild sepsis. Nephrology is on board in regards to his chronic kidney disease. At this time, we will recommend, 1. Seroquel 12.5 mg p.o. b.i.d. for his underlying agitation and restlessness. 2. Given that he has had hematuria, recommend to hold the Coumadin until cleared by Urology to where he can be back on Coumadin for stroke prevention. 3. Continue to monitor electrolytes and correct accordingly. 4. Delirium precautions in place and continue with current present medical management. Thank you for this follow up. Bebeto Etienne MD
[2018-03-18] MEDS: Sodium Chloride 0.45% 1,000 ML IV SCH ×2 (14:54→19:30)
--- NOTE | 2018-03-18 15:51 | CP.PCM.PN ---
Subjective - Date & Time of Evaluation Date of Evaluation: 03/18/18 Time of Evaluation: 10:30 - Subjective Subjective: No fevers, not in distress but still with hematuria. No diarrhea. Objective - Vital Signs/Intake and Output Vital Signs (last 24 hours): Temp Pulse Resp BP Pulse Ox 97.9 F 68 18 102/50 L 96 03/18/18 06:00 03/18/18 06:00 03/18/18 06:00 03/18/18 06:00 03/18/18 06:00 Intake and Output: 03/18/18 03/18/18 06:59 18:59 Intake Total 57750 30133 Output Total 40660 Balance -1905 [id number] - Medications Medications: Current Medications Albuterol/Ipratropium (Duoneb 3 Mg/0.5 Mg (3 Ml) Ud) 3 ml IH [id number] [facility] Last Admin: 03/18/18 07:51 Dose: 3 ml Albuterol/Ipratropium (Duoneb 3 Mg/0.5 Mg (3 Ml) Ud) 3 ml IH Q2H PRN PRN Reason: Shortness of Breath Allopurinol (Zyloprim) 100 mg PO DAILY [facility] Amlodipine Besylate (Norvasc) 10 mg PO DAILY [facility] Doxycycline Hyclate (Doryx) 100 mg PO Q12 [facility] PRN Reason: Protocol Last Admin: 03/17/18 21:46 Dose: Not Given Ergocalciferol (Drisdol 50,000 Intl Units Cap) 1 cap PO Q7D [facility] Last Admin: 03/17/18 18:10 Dose: 1 cap Ferrous Gluconate (Fergon) 324 mg PO TID [facility] Last Admin: 03/17/18 18:08 Dose: 324 mg Hydralazine HCl (Apresoline) 25 mg PO Q4 PRN PRN Reason: Other Cefepime HCl (Maxipime 1gm) 1 gm in 100 mls @ 100 mls/hr IVPB Q24H [facility] PRN Reason: Protocol Last Admin: 03/18/18 10:30 Dose: 100 mls/hr Sodium Chloride (Sodium Chloride 0.45%) 1,000 mls @ 75 mls/hr IV .[id number] [facility] Last Admin: 03/17/18 01:54 Dose: 75 mls/hr Insulin Human Regular (Humulin R Low) 0 units SC ACHS [facility] PRN Reason: Protocol Last Admin: 03/18/18 08:00 Dose: Not Given Isosorbide Mononitrate (Imdur) 60 mg PO DAILY [facility] Levothyroxine Sodium (Synthroid) 25 mcg PO DAILY [facility] Last Admin: 03/17/18 11:31 Dose: 25 mcg Metoprolol Tartrate (Lopressor) 25 mg PO BID [facility] Last Admin: 03/17/18 18:08 Dose: 25 mg Morphine Sulfate (Morphine) 2 mg IVP Q6H PRN PRN Reason: Pain, severe (8-10) Last Admin: 03/17/18 12:29 Dose: 2 mg Quetiapine Fumarate (Seroquel) 12.5 mg PO Q12 PRN; Protocol PRN Reason: Agitation Last Admin: 03/17/18 18:10 Dose: 12.5 mg Vitamin B Complex/Vit C/Folic Acid (Nephro-Armaan) 1 tab PO 0800 [facility] - Labs Labs: 03/18/18 06:30 03/18/18 06:30 PT 18.7 SECONDS (9.4-12.5) H 03/18/18 06:30 INR 1.61 (0.93-1.08) H 03/18/18 06:30 APTT 43.8 Seconds (25.1-36.5) H 03/14/18 08:15 - Constitutional Appears: Chronically Ill - Head Exam Head Exam: NORMAL INSPECTION - Respiratory Exam Respiratory Exam: Decreased Breath Sounds - Cardiovascular Exam Cardiovascular Exam: +S1, +S2 - GI/Abdominal Exam GI & Abdominal Exam: Soft. absent: Tenderness Assessment and Plan - Assessment and Plan (Free Text) Plan: Assessment sepsis due to right sided HCAP hematuria, etiology to be determined chronic renal failure HTN hypothyroidism S/P pacemaker placement Plan continue Cefepime and Doxycycline day 4 to complete up to 7 days of therapy follow up further Urology recommendations will continue to monitor clinically
[2018-03-18] MEDS: Morphine 2 mg/ml ISec IVP PRN ×2 (16:50→22:28)
--- NOTE | 2018-03-18 21:12 | PN ---
DATE: 03/18/2018 SUBJECTIVE: The patient was admitted into medical floor for difficulty urinating and hematuria. Psych consult was called for evaluation of periods of agitation and delirium stage. Agreed with Dr. Vasquez with Seroquel 12.5 mg twice a day as needed. The patient was seen today, discussed with one-to-one. As per nursing staff, the patient has episodes of agitation and restless behavior and is trying to pull his Boykin catheter as well as IV line. The patient reported that he does not feel well, was falling asleep during the interview. As per one-to-one, the patient has poor appetite and had only a few spoons of oatmeal. This rfp writer reviewed the vital signs which seem to be stable. Temperature 97.3, pulse is 62, blood pressure 132/61, respirations 20, and oxygen saturation is 96%. MEDICATIONS: Reviewed. The patient is on DuoNeb, allopurinol, Norvasc, Maxipime, doxycycline, Drisdol, Fergon, hydralazine, insulin, Imdur, Synthroid, Lopressor, morphine, Seroquel 12.5 mg twice a day as needed for agitation, sodium chloride, and vitamin B complex. LABORATORY DATA: Reviewed. WBC are trending down to 12.1, hemoglobin and hematocrit 9.5 and 29.4. Coagulation reviewed. Chemistry reviewed. Potassium was low at 3.4 today. Blood was large in the urine. Toxicology, digoxin 0.5. Microbiology, no growth so far. MENTAL STATUS EXAMINATION: As this rfp writer described above, the patient has episodes of restless and agitated behavior, but during this rfp writer's assessment, the patient was falling asleep. Intermittent eye contact. The patient was asking "when everything will be over for me." Thought process concrete. Thought content: The patient denied visual, auditory, or tactile hallucinations, but the patient has episodes of agitated and restless behavior, which could be related to the medical issues and urinary retention. Insight and judgment seem to be limited, but improving. Impulses are well controlled so far. At the same time, during the nighttime, the patient has restless behavior. IMPRESSION: Most likely, the patient is in delirium stage which is related to urinary retention, also questionable sepsis. Agreed with Dr. Etienne as well as Dr. Vasquez with the Seroquel. Delirium should be improving after medical issues will be addressed. This rfp writer will follow up on this patient and advise accordingly, p.r.n. orders are started. Should you have any questions, give me a call back. Jami De La Rosa MD
--- NOTE | 2018-03-18 22:53 | PN ---
DATE: 03/18/2018 SUBJECTIVE: The patient is currently sedated. The patient has completed EEG study. PHYSICAL EXAMINATION VITAL SIGNS: Blood pressure 152/96, heart rate 74, temperature 98.4, respirations 18. GENERAL: Boykin catheter was removed. HEENT: Pale conjunctivae. CHEST: Clear. HEART: S1 and S2 regular. EXTREMITIES: Trace leg edema. LABORATORY DATA: Today's hemoglobin and hematocrit 9.5 and 29.4, white count 12.1, platelet count 191,000. Today's SMA-7, sodium 146, potassium 3.4, chloride 107, CO2 of 30, glucose 99, BUN 44, creatinine 1.7. Today's INR is 1.61. Blood culture is negative x3 days. ASSESSMENT: 1. Chronic atrial fibrillation. 2. Nonsustained ventricular tachycardia. 3. Iatrogenic coagulopathy with daljit hematuria status post cystoscopy. 4. Mild aortic insufficiency. 5. Moderate pulmonary hypertension. 6. Prerenal azotemia. 7. Hypokalemia. RECOMMENDATIONS: Continue hydralazine 25 mg every 4 hours p.r.n., continue doxycycline 100 mg orally twice a day, continue ferrous gluconate 1 tablet t.i.d., Imdur 60 mg once a day, Lopressor 25 mg twice a day, Maxipime at 1 g daily, Norvasc 10 mg once day, Synthroid 25 mcg daily. The patient did receive 10 mEq of IV KCl replacement today. Follow up BMP in the a.m. Cabrera Jara MD
[2018-03-19] MEDS: Albuterol-Ipratrop 3 mg / 0.5 (3 ml) UD IH SCH ×6 (01:35→21:20)
[2018-03-19] MEDS: Morphine 2 mg/ml ISec IVP PRN (06:05)
[2018-03-19] MEDS: Levothyroxine 25 MCG TAB PO SCH (06:06)
[2018-03-19] MEDS: Sodium Chloride 0.45% 1,000 ML IV SCH (06:07)
[2018-03-19 07:01] LABS: HEMOGLOBIN 9.7 g/dL (14.0-18.0); MEAN CELL VOLUME 102.1 fl (80.0-105.0); MEAN CORPUSCULAR HEMOGLOBIN 33.2 pg (25.0-35.0); MEAN CORPUSCULAR HGB CONC 32.6 g/dl (31.0-37.0); MEAN PLATELET VOLUME 10.9 fl (7.0-11.0); RBC 2.92 10^6/uL (3.5-6.1); RED CELL DISTRIBUTION WIDTH 15.9 % (11.5-14.5); WHITE BLOOD COUNT 13.5 10^3/ul (4.5-11.0)
[2018-03-19 07:02] LABS: INR 1.72
[2018-03-19 07:12] LABS: ALBUMIN 3.3 g/dL (3.0-4.8); CALCIUM 8.4 mg/dL (8.4-10.5); URIC ACID 9.1 mg/dL (3.5-8.5)
--- NOTE | 2018-03-19 07:56 | PN ---
Copied To: Severino Diamond MD Attending MD: Severino Diamond MD. DATE: 03/19/2018 PULMONARY NOTE SUBJECTIVE The patient appears comfortable this morning. He is not short of breath at rest. He remains confused. OBJECTIVE: VITAL SIGNS: Temperature is 98.6, pulse 82, respirations 18/20, blood pressure 155/69. Oxygen saturation on room air is 90-95%. HEENT: Normocephalic, atraumatic. No JVD. CARDIOVASCULAR: Systolic ejection murmur at the lower left sternal border. No S3 gallop. LUNGS: Crackles noted at the right lower lobe. Less rhonchi. No wheezing. EXTREMITIES: No clubbing, cyanosis or edema. Calves are nontender to palpation. GI: Abdomen is soft, nontender and nondistended. Bowel sounds are positive. SKIN: No acute rash. NEUROLOGIC: Exam limited at the present time. PERTINENT LABORATORY DATA: CAT scan of the chest was done yesterday and reviewed. There is a right lower lobe infiltrate with air bronchograms - consistent with pneumonia. There is also a small right pleural effusion. There is no significant lymphadenopathy. IMPRESSION: 1. Probable aspiration pneumonia - right lower lobe. 2. Mild bronchospasm. 3. Hematuria. 4. Anemia. 5. Renal insufficiency. PLAN: The patient appears comfortable this morning. He is not short of breath at rest. He remains confused. I did discuss the case with the night aide at length. On physical exam, there is only minimal bronchospasm noted. In addition, there is no significant alveolar-arterial gradient. The patient consistently takes off his nasal cannula. I will continue with the current nebulizer treatments and aspiration precautions for now. I would continue with the antibiotic coverage as per Infectious Disease. Input by Dr. Kennedy is noted. CAT scan of the chest is also noted above. There are no temperatures noted. The leukocytosis has almost resolved. Clinical status of the patient is certainly improved overall. However, again, the future status/prognosis for this elderly patient does remain very guarded. I will discuss the above with Dr. Griggs. Severino Diamond MD [facility] # [id number] [facility]
[2018-03-19] MEDS: Insulin Reg-LOW-Coverage SC SCH ×3 (08:54→18:06)
[2018-03-19] MEDS: Cefepime 1gm in NS 100ml 1 GM/100 ML BAG IVPB SCH (09:57)
[2018-03-19] MEDS ORDERED: Sodium Chloride 0.45% 1,000 ML IV SCH (11:48)
[2018-03-19] MEDS: Multivitamin Vitamin B Complex (Nephro-Vite) Tab PO SCH (12:35)
[2018-03-19] MEDS: Morphine 2 mg/ml ISec IVP SCH ×3 (12:35→21:51)
--- NOTE | 2018-03-19 13:09 | PN ---
Copied To: Jami De La Rosa MD Attending MD: Jami De La Rosa MD. DATE: 03/19/2018 SUBJECTIVE: The patient was admitted for urinary retention. The patient had multiple medical issues including hypertension, hypothyroidism, hematuria . Psych consult was involved because the patient was delirious. Also, the patient requires psychotropic medication because of periods of restlessness and agitation, which is related to the medical issues. The patient was seen by Dr. Vasquez over the weekend, this screen writer is taking over. The patient was followed up today. The patient presented to be sleepy, but easily arousable. The patient is moaning. The patient reported that he does not feel well and he is in pain. The patient had episodes of restlessness and agitated behavior, but no aggression. The patient got haloperidol 1 mg and Seroquel 2.5 mg twice a day as needed. This screen writer will implement benzodiazepines in case of anxiety as well as restless behavior. Vital signs reviewed, seems to be stable. Temperature 98.6, pulse is 82, blood pressure 155/69, respirations 19. Medications reviewed. The patient is on DuoNeb, allopurinol, Norvasc, cefepime, doxycycline, Drisdol, Fergon, Apresoline, Humulin, Imdur, Synthroid, Ativan 0.5 mg IV push every 8 hours for restlessness and agitation was initiated, Lopressor 25 mg twice a day, morphine 2 mg IV push every 4 hours scheduled, Seroquel 12.5 mg twice a day as needed for agitation and psychosis, sodium chloride as well as vitamin B complex. Labs reviewed. WBC cells are up to date 13.5. Hemoglobin and hematocrit 9.7 and 29.8. Coagulation reviewed. Chemistry reviewed. Microbiology reviewed. Reports reviewed. Infectious Disease notes as well as commercial diver as well as sleep technologist, neurologist and textile designs sales representative reviewed as well as urologist's notes reviewed. MENTAL STATUS EXAMINATION: The patient is years be sleepy but easily arousable. Poor eye contact. The patient appears to be restless and comfortable. The patient described his mood as not so good. Affect was constricted. Thought process concrete. Thought content, the patient most likely has delirium stage, periods of agitation and restlessness, but no visual, auditory or tactile hallucinations observed or reported. Insight and judgment seems to be limited, but improving. Impulses are unpredictable. IMPRESSION Most likely, the patient is in delirium stage which is due to pneumonia and urinary tract infection and multiple medical issues.. PLAN: Seroquel 12.5 mg twice a day, also Ativan 0.5 mg three times disease as needed for anxiety. The patient needs to continue current management; Urology is on board, Pulmonology is on board, Nephrology on board. The patient is on antibiotics. This screen writer will follow up on this patient every other day. Should you have any questions, give me a call back. Thank you very much for letting me participate in care of your patient. Jami De La Rosa MD
--- NOTE | 2018-03-19 13:29 | PN ---
Copied To: Dieter Griggs DO Attending MD: Dieter Griggs DO. DATE: 03/19/2018 SUBJECTIVE: I saw him resting comfortably in bed. He was being moved by two people to move in bed. He is very weak, but he is more alert, talking with me. He opened his eyes. He looked at me, told me he was hungry. He is being seen by Pulmonary, Cardiology, Infectious Disease, Psychiatry, Neurology, Renal. He had a sister with aspiration pneumonia. He was out of it mentally. He is going to be on antibiotics. He has atrial fibrillation and sepsis. Now, he is very lethargic. It seems like he will need to go to subacute rehab before he goes home. He had hematuria, chronic renal failure, hypertension. He is on cefepime and doxycycline. He is slowly improving mentally also. OBJECTIVE: VITAL SIGNS: He has a 98.6 temperature, 82 pulse, 155/69 blood pressure, 20 respiratory rate, 90% O2 sat on room air. HEENT: Head is atraumatic, normocephalic. HEART: Regular rate. LUNGS: Decreased breath sounds on the left, congestion on the right with worsening breath sounds, but he is coughing that up. ABDOMEN: Soft, nontender. Positive bowel sounds. EXTREMITIES: No edema. MEDICATIONS: He is currently on Apresoline, Doryx, Drisdol, DuoNebs, Fergon, insulin, Imdur, Lopressor, Maxipime, morphine as needed, Nephro-Armaan, Norvasc, Seroquel, IV fluids, Synthroid, and Zyloprim. LABORATORY DATA: He has a 144 sodium, potassium 3.8, BUN 40, creatinine 1.6 and improving, GFR is 41, sugar is 140. Uric acid is down to 9.1, on Colcrys. His calcium is 8.4. Total bilirubin is 1.4, AST is 48, ALT is 55, alkaline phosphatase 57, total protein 6.5. White count is 13.5, better than 20 but not as good as 12.5, come down a little bit more; hemoglobin 9.7; hematocrit 29.8 with 247 platelets. His INR is down to 1.72. He is off the Coumadin. The bleeding is a little bit better. I need to know from Cardiology if I should put him back on the Coumadin again or Lovenox until he is improved. I will discuss it with the career information specialist. He is here for numerous reasons; slowly improving hematuria, urinary retention and then, he had cystoscopy, he had CBI; hypertension; sepsis, aspiration pneumonia and it is slowly coming around. He is also quite lethargic. Dieter Griggs DO [facility]
--- NOTE | 2018-03-19 14:29 | CP.PCM.PN ---
Subjective - Date & Time of Evaluation Date of Evaluation: 03/19/18 Time of Evaluation: 14:27 - Subjective Subjective: Nephrology Consultation Note: Assessment: stable Acute Kidney Injury (N17.9) ? 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 mg proteinuria (R80.9) likely due to HTN/age related decline Anemia, hypokalemia, AMS, hematuria, pneumonia Hyperuricemia Plan No acute need for renal replacement therapy at this time. Hypertension control with meds as ordered. hold hctz due to ABEL. increase norvasc 10 mg/day and added prn hydralazine. resume lisinopril 20 mg/day Monitor Input/Output, daily weights and renal function with basic metabolic panel d/c IVD as oral intake reported to be adequate started Iron, MVI and Vit D supplements added allopurinol instead of colchicine Dose meds/antibiotics for reduced GFR. Avoid fleets enema/magnesium based laxatives. Avoid nephrotoxins/NSAIDs/ iodinated contrast (unless needed emergently) Glycemic control Further work up/management as per primary team Thanks for allowing me to participate in care of your patient. Will follow patient with you. Please call if any Qs Dr Sher Wallace Office: [phone] Chief Complaint; unable reason for consult: ABEL source of Info: EMR HPI: Pt is a 87 M with hx of hypertension (years) hypothyroidism presented with complaints of blood in urine and underwent cystoscopy and on CBI for hematuria. also found to have pneumonia. renal consult for ABEL. pt with baseline ckd stage 3 with cr 1.3 at baseline. he was deliriuos and unable to provide any hx Denies OTC/herbal meds or NSAIDs No recent iodinated contrast exposure. Noted obvious episodes of high BP in 190s and normal BP. ROS: unable to obtain from pt due to AMS Physical Examination: General Appearance: comfortable, in no acute respiratory distress, better appearing, delirium better today Vitals reviewed and noted as below Head; Atraumatic, normocephalic ENT: no ulcers no thrush. Tongue is midline. Oropharynx: no rash or ulcers. EYES: Pupils are equal, round and reactive to light accommodation. Eye muscles and extraocular movement intact. Sclera is anicteric. Neck; supple no lymphadenopathy, no thyromegaly or bruit Lungs: Normal respiratory rate/effort. Breath sounds bilateral with rales improved Heart: Normal rate. s1s2 normal. No rub or gallop. Extremities: no edema. No varicose veins Neurological: Patient is more calm and less delirious Skin: Warm and dry. Normal turgor. No rash. Palpitation: Normal elasticity for age Abdomen: Abdomen is soft. Bowel sounds +. There is no abdominal tenderness, no guarding/rigidity no organomegaly Psych: no insight and agitated, on 1;1 MSK: no joint tenderness or swelling. Digits and nails normal, no deformity : kidney or bladder not palpable . has Boykin reinserted because of hematuria Labs/imaging reviewed. Past medical history, past surgical history, family history, social history, allergy reviewed and noted as below Family hx: no hx of CKD. Rest non-contributory echo moderate pHTN with normal LVEF Objective - Vital Signs/Intake and Output Vital Signs (last 24 hours): Temp Pulse Resp BP Pulse Ox 98.7 F 71 20 170/76 H 90 L 03/19/18 12:00 03/19/18 12:00 03/19/18 12:00 03/19/18 12:37 03/19/18 06:00 Intake and Output: 03/19/18 03/19/18 06:59 18:59 Intake Total 1680 Output Total 1100 Balance 580 - Medications Medications: Current Medications Albuterol/Ipratropium (Duoneb 3 Mg/0.5 Mg (3 Ml) Ud) 3 ml IH Q2H PRN PRN Reason: Shortness of Breath Albuterol/Ipratropium (Duoneb 3 Mg/0.5 Mg (3 Ml) Ud) 3 ml IH TIDRESP COUNTS [facility]CLUDE [facility] BEDS AT [facility] Allopurinol (Zyloprim) 100 mg PO DAILY [facility] Last Admin: 03/19/18 12:36 Dose: 100 mg Amlodipine Besylate (Norvasc) 10 mg PO DAILY [facility] Last Admin: 03/19/18 12:37 Dose: 10 mg Doxycycline Hyclate (Doryx) 100 mg PO Q12 [facility] PRN Reason: Protocol Last Admin: 03/19/18 12:35 Dose: 100 mg Ergocalciferol (Drisdol 50,000 Intl Units Cap) 1 cap PO Q7D [facility] Last Admin: 03/17/18 18:10 Dose: 1 cap Ferrous Gluconate (Fergon) 324 mg PO TID [facility] Last Admin: 03/19/18 12:36 Dose: 324 mg Hydralazine HCl (Apresoline) 25 mg PO Q4 PRN PRN Reason: Other Cefepime HCl (Maxipime 1gm) 1 gm in 100 mls @ 100 mls/hr IVPB Q24H [facility] PRN Reason: Protocol Last Admin: 03/19/18 09:57 Dose: 100 mls/hr Insulin Human Regular (Humulin R Low) 0 units SC ACHS [facility] PRN Reason: Protocol Last Admin: 03/19/18 08:54 Dose: Not Given Isosorbide Mononitrate (Imdur) 60 mg PO DAILY [facility] Last Admin: 03/19/18 12:35 Dose: 60 mg Levothyroxine Sodium (Synthroid) 25 mcg PO 0600 [facility] Last Admin: 03/19/18 06:06 Dose: 25 mcg Lorazepam (Ativan) 0.5 mg IVP Q8 PRN; Protocol PRN Reason: agiation,restlessness Metoprolol Tartrate (Lopressor) 25 mg PO BID [facility] 234 [facility] Last Admin: 03/19/18 12:36 Dose: 25 mg Morphine Sulfate (Morphine) 2 mg IVP Q4 [facility] 234 [facility]S [facility] Last Admin: 03/19/18 12:35 Dose: 2 mg Quetiapine Fumarate (Seroquel) 12.5 mg PO Q12 PRN; Protocol PRN Reason: Agitation Last Admin: 03/18/18 22:05 Dose: 12.5 mg Vitamin B Complex/Vit C/Folic Acid (Nephro-Armaan) 1 tab PO 0800 [facility] Last Admin: 03/19/18 12:35 Dose: 1 tab - Labs Labs: 03/19/18 06:30 03/19/18 06:30 PT 20.0 SECONDS 03/19/18 06:30 INR 1.72 03/19/18 06:30 APTT 43.8 Seconds (25.1-36.5) H 03/14/18 08:15
--- NOTE | 2018-03-19 14:46 | PN ---
Copied To: Ebenezer Ledesma MD Attending MD: Ebenezer Ledesma MD. DATE: 03/19/2018 SUBJECTIVE: The patient is in bed, in no acute distress, was seen earlier today. PHYSICAL EXAMINATION: VITAL SIGNS: Temperature is 98, blood pressure is 150/60, respiratory rate of 18. HEENT: Examination of HEENT is unremarkable. NECK: Supple. LUNGS: Have decreased breath sounds. HEART: Normal S1, S2. ABDOMEN: Soft, nontender. LABORATORY DATA: Laboratory examination reveals a white count of 13,500, hemoglobin of 9, platelets of 247. Chemistries reveals a BUN of 40, creatinine of 1.6. Urinalysis is noted and toxicology is noted. Laboratory reveals the blood cultures are negative. ASSESSMENT AND PLAN: An 87-year-old male seen earlier today in 276, bed 2 with sepsis due to right-sided healthcare-associated pneumonia, hematuria, chronic renal failure, hypertension, hypothyroidism, status post pacemaker. Day #5 of cefepime and doxycycline, would complete 4-7 days. The patient still has mild leukocytosis with negative blood cultures and negative procalcitonin. The urine culture is pending. Urinalysis is negative. Should consider supportive care in this patient. We will follow closely with you. Ebenezer Ledesma MD
[2018-03-19 15:48] LABS: URINE APPEARANCE CLOUDY (CLEAR); URINE BILIRUBIN MODERATE (NEGATIVE); URINE BLOOD LARGE (NEGATIVE); URINE COLOR DARK BROWN (YELLOW); URINE GLUCOSE (UA) 100 mg/dL (NEGATIVE); URINE LEUKOCYTE ESTERASE SMALL Leu/uL (NEGATIVE); URINE PROTEIN >=300 mg/dL (<30 mg/dL); URINE RBC TNTC /hpf (0-2)
[2018-03-19 15:49] LABS: URINE BACTERIA MANY (NEG)
[2018-03-19 15:51] LABS: URINE AMORPHOUS SEDIMENT SMALL
[2018-03-19 15:52] LABS: URINE COARSE GRANULAR CAST TRACE /hpf (0-2)
--- NOTE | 2018-03-19 17:44 | PN ---
Copied To: Maury Booker MD Attending MD: Maury Booker MD DATE: 03/19/2018 CARDIOLOGY FOLLOWUP SUBJECTIVE: The patient is comfortable in bed without shortness of breath, without chest pain. PHYSICAL EXAMINATION: VITAL SIGNS: Blood pressure is 155/69, heart rate is in the 80s, atrial fibrillation. NECK: Negative JVD. LUNGS: Decreased breath sounds bilaterally. HEART: Reveals S1, S2. EXTREMITIES: Without edema. LABORATORY DATA: BUN and creatinine are 40 and 1.6. Glucose of 124. Hemoglobin is 9.7. Echocardiogram reveals an ejection fraction that is normal. There is pulmonary hypertension noted. IMPRESSION: 1. Hematuria. 2. Atrial fibrillation. 3. Nonsustained ventricular tachycardia. 4. Aspiration ammonia 5. Pulmonary hypertension. 6. Prerenal azotemia. Given these findings, the patient cannot be on anticoagulation given his hematuria. We will cut down on his albuterol which may be contributing to his ventricular arrhythmias. We will continue to monitor on telemetry. Maury Booker MD
[2018-03-20] MEDS: Morphine 2 mg/ml ISec IVP SCH ×4 (01:08→21:33)
[2018-03-20] MEDS: Insulin Reg-LOW-Coverage SC SCH ×4 (02:43→21:31)
[2018-03-20] MEDS: Albuterol-Ipratrop 3 mg / 0.5 (3 ml) UD IH SCH ×3 (07:12→21:05)
[2018-03-20 07:33] LABS: HEMOGLOBIN 9.7 g/dL (14.0-18.0); MEAN CELL VOLUME 101.4 fl (80.0-105.0); MEAN CORPUSCULAR HEMOGLOBIN 33.6 pg (25.0-35.0); MEAN CORPUSCULAR HGB CONC 33.1 g/dl (31.0-37.0); MEAN PLATELET VOLUME 11.1 fl (7.0-11.0); RBC 2.89 10^6/uL (3.5-6.1); RED CELL DISTRIBUTION WIDTH 16.1 % (11.5-14.5); WHITE BLOOD COUNT 14.1 10^3/ul (4.5-11.0)
[2018-03-20 08:01] LABS: ALBUMIN 3.2 g/dL (3.0-4.8); ALT/SGPT 58 U/L (7-56); AST/SGOT 89 U/L (17-59); BLOOD UREA NITROGEN 36 mg/dL (7-21); CALCIUM 8.3 mg/dL (8.4-10.5); GFR NON-AFRICAN AMERICAN 52
--- NOTE | 2018-03-20 09:13 | PN ---
Copied To: Severino Diamond MD Attending MD: Severino Diamond MD DATE: 03/20/2018 PULMONARY NOTE SUBJECTIVE: The patient appears comfortable this morning. He is not short of breath at rest. He is less confused (discussed with aide). OBJECTIVE: VITAL SIGNS (last noted in the computer): Temperature is 97.9, pulse 58, respirations 18, blood pressure 121/59. HEENT: Normocephalic, atraumatic. No JVD. CARDIOVASCULAR: Systolic ejection murmur at the lower left sternal border. No S3 gallop. LUNGS: Less crackles - right lower lobe. Less rhonchi. No wheezing. EXTREMITIES: No clubbing, cyanosis or edema. Calves are nontender to palpation. GI: Abdomen is soft, nontender and nondistended. Bowel sounds are positive. SKIN: No acute rash. NEUROLOGIC: Exam limited at the present time. IMPRESSION: 1. Probable aspiration pneumonia - right lower lobe. 2. Mild bronchospasm. 3. Hematuria. 4. Anemia. 5. Renal insufficiency. PLAN: The patient appears comfortable this morning. He is not short of breath at rest. He is much less confused (discussed with night aide). On physical exam, his bronchospasm is certainly less. In addition, there is no significant alveolar-arterial gradient. I will continue with the current nebulizer treatments for now. I will also continue with the aspiration precautions. The patient remains on antibiotic therapy - as per Infectious Disease. There are no temperatures noted. The leukocytosis is resolving. Inputs by Renal and Cardiology are also noted. Clinical status of the patient is significantly improved - compared to last week. However, again, the future status/prognosis for this elderly patient does remain guarded. I will discuss the above with Dr. Griggs. Severino Diamond MD MTDNeo
[2018-03-20] MEDS: Cefepime 1gm in NS 100ml 1 GM/100 ML BAG IVPB SCH (09:26)
[2018-03-20] MEDS: Multivitamin Vitamin B Complex (Nephro-Vite) Tab PO SCH (09:29)
[2018-03-20] MEDS: Levothyroxine 25 MCG TAB PO SCH (09:38)
--- NOTE | 2018-03-20 10:51 | PN ---
Copied To: Dieter Griggs DO Attending MD: Dieter Griggs DO DATE: 03/20/2018 SUBJECTIVE: I know him very well. I saw him resting comfortably in bed. He still has a one to one. He is very alert. He knew me. He is stronger. He is hungry. He is looking at me. He came in with an abdominal pain, urinary retention. He had a cysto, then he had aspiration pneumonia. He has been on antibiotics. He had change in mentation. He has a one-to-one sitter and now he is getting more alert and oriented. He is doing much much better. He knew me this morning. He is stronger. He is on Apresoline, Ativan, Doryx, Drisdol, DuoNebs, iron, Haldol, Imdur, Lopressor, Maxipime, Nephro-Armaan, Norvasc, Seroquel, Synthroid, Zestril and Zyloprim. PHYSICAL EXAMINATION: VITAL SIGNS: 98.5 temp, 62 pulse, 131/60 blood pressure, 20 respiratory rate, 95% O2 sat on room air. GENERAL: He is very alert, talking, strong again. HEENT: His head is atraumatic, normocephalic. HEART: Regular rate. LUNGS: Clear to auscultation, much better. ABDOMEN: Soft. EXTREMITIES: No edema. LABORATORY DATA: He has a 14.1 white count, still elevated; 9.7 hemoglobin; 29.3 hematocrit with 236 platelets. He has a 143 sodium, potassium 3.8, BUN 36, creatinine 1.3, GFR is 52, sugar is 110, calcium is 8.3, phosphorus 2.8, magnesium 1.9, total bili is 2.7, AST is 89, ALT is 58, alk phos 72, total protein 6.6. ASSESSMENT AND PLAN: He is being seen by Renal, Cardio, Infectious Disease, Pulmonary somewhere. He had hematuria, atrial fibrillation. My question is still about his Coumadin verses no Coumadin due to his atrial fibrillation. He has got healthcare-associated pneumonia, which is improving. He still has a leukocytosis. We will continue with the IV antibiotics. I would like to think he could possibly go to either a subacute rehab or a Transitional Care Unit and they recommend subacute rehabilitation probably in the future. We will see when they could arrange that and we will continue with aggressive treatment and care on Ricardoyolanda Sr. Dieter Griggs DO
[2018-03-20] MEDS: Meropenem IV 1 gm in NS 50 ML IVPB SCH ×2 (11:25→21:32)
--- NOTE | 2018-03-20 14:45 | PN ---
Copied To: Ebenezer Ledesma MD Attending MD: Ebenezer Ledesma MD DATE: 03/20/2018 SUBJECTIVE: Patient was seen earlier today in room 572, bed 1. No fevers or chills. OBJECTIVE: VITAL SIGNS: On exam, temperature is 98, blood pressure is 131/60, respiratory rate of 18. HEENT: Examination is unremarkable. NECK: Supple. LUNGS: Decreased breath sounds. HEART: Normal S1 and S2. ABDOMEN: Soft, nontender. DATA: Laboratory examination reveals a white count of 14,000, hemoglobin of 9, platelets are noted. BUN of 36, creatinine of 1. Urinalysis is noted and digoxin level is 0.5. Microbiology reveals the blood cultures are negative. Patient is on p.o. doxycycline, which requires renewal, which I will do so and the patient s procalcitonin is 0.29. Dr. Diamond's note from today is reviewed. ASSESSMENT AND PLAN: This is an 87-year-old male seen earlier this morning with sepsis due to right-sided healthcare associated pneumonia, hematuria, chronic renal failure, hypertension, hypothyroidism, pacemaker, completed 5 days of cefepime and doxycycline and now is only on p.o. doxycycline. Patient is afebrile and leukocytosis of 14,000. Case discussed with Dr. Diamond. He will follow closely with you. Ebenezer Ledesma MD
--- NOTE | 2018-03-20 15:02 | CP.PCM.PN ---
Subjective - Date & Time of Evaluation Date of Evaluation: 03/20/18 Time of Evaluation: 15:00 - Subjective Subjective: Nephrology Consultation Note: Assessment: stable Acute Kidney Injury (N17.9) ? 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 mg proteinuria (R80.9) likely due to HTN/age related decline Anemia, hypokalemia, AMS, hematuria, pneumonia Hyperuricemia Plan No acute need for renal replacement therapy at this time. Hypertension control with meds as ordered. hold hctz due to ABEL. increase norvasc 10 mg/day and added prn hydralazine. resume lisinopril 20 mg/day Monitor Input/Output, daily weights and renal function with basic metabolic panel started Iron, MVI and Vit D supplements added allopurinol instead of colchicine Dose meds/antibiotics for reduced GFR. Avoid fleets enema/magnesium based laxatives. Avoid nephrotoxins/NSAIDs/ iodinated contrast (unless needed emergently) Glycemic control Further work up/management as per primary team Thanks for allowing me to participate in care of your patient. Will follow patient with you. Please call if any Qs Dr Sher Wallace Office: [phone] Chief Complaint; unable reason for consult: ABEL source of Info: EMR HPI: Pt is a 87 M with hx of hypertension (years) hypothyroidism presented with complaints of blood in urine and underwent cystoscopy and on CBI for hematuria. also found to have pneumonia. renal consult for ABEL. pt with baseline ckd stage 3 with cr 1.3 at baseline. he was deliriuos and unable to provide any hx Denies OTC/herbal meds or NSAIDs No recent iodinated contrast exposure. Noted obvious episodes of high BP in 190s and normal BP. ROS: pt feels better. denies CP/SOB/pain Physical Examination: General Appearance: comfortable, in no acute respiratory distress, better appearing Vitals reviewed and noted as below Head; Atraumatic, normocephalic ENT: no ulcers no thrush. Tongue is midline. Oropharynx: no rash or ulcers. EYES: Pupils are equal, round and reactive to light accommodation. Eye muscles and extraocular movement intact. Sclera is anicteric. Neck; supple no lymphadenopathy, no thyromegaly or bruit Lungs: Normal respiratory rate/effort. Breath sounds bilateral with rales improved Heart: Normal rate. s1s2 normal. No rub or gallop. Extremities: no edema. No varicose veins Neurological: Patient is more calm and alert awaeka, bit confused Skin: Warm and dry. Normal turgor. No rash. Palpitation: Normal elasticity for age Abdomen: Abdomen is soft. Bowel sounds +. There is no abdominal tenderness, no guarding/rigidity no organomegaly Psych: no insight and normal affect MSK: no joint tenderness or swelling. Digits and nails normal, no deformity : kidney or bladder not palpable . has Boykin reinserted because of hematuria Labs/imaging reviewed. Past medical history, past surgical history, family history, social history, allergy reviewed and noted as below Family hx: no hx of CKD. Rest non-contributory echo moderate pHTN with normal LVEF Objective - Vital Signs/Intake and Output Vital Signs (last 24 hours): Temp Pulse Resp BP Pulse Ox 98 F 100 H 80 H 153/72 H 94 L 03/20/18 14:00 03/20/18 14:00 03/20/18 14:00 03/20/18 14:00 03/20/18 14:00 Intake and Output: 03/20/18 03/20/18 06:59 18:59 Output Total 1000 Balance -1000 - Medications Medications: Current Medications Albuterol/Ipratropium (Duoneb 3 Mg/0.5 Mg (3 Ml) Ud) 3 ml IH Q2H PRN PRN Reason: Shortness of Breath Albuterol/Ipratropium (Duoneb 3 Mg/0.5 Mg (3 Ml) Ud) 3 ml IH TIDRESP [facility] Last Admin: 03/20/18 13:57 Dose: 3 ml Allopurinol (Zyloprim) 100 mg PO DAILY [facility] Last Admin: 03/20/18 09:29 Dose: 100 mg Amlodipine Besylate (Norvasc) 10 mg PO DAILY [facility] Last Admin: 03/20/18 09:32 Dose: 10 mg Doxycycline Hyclate (Doryx) 100 mg PO Q12 [facility] PRN Reason: Protocol Last Admin: 03/20/18 09:27 Dose: 100 mg Ergocalciferol (Drisdol 50,000 Intl Units Cap) 1 cap PO Q7D [facility] Last Admin: 03/17/18 18:10 Dose: 1 cap Ferrous Gluconate (Fergon) 324 mg PO TID [facility] Last Admin: 03/20/18 13:20 Dose: 324 mg Hydralazine HCl (Apresoline) 25 mg PO Q4 PRN PRN Reason: Other Meropenem (Merrem Iv 1 Gm Premix) 50 mls @ 100 mls/hr IVPB Q12 [facility] PRN Reason: Protocol Stop: 03/28/18 10:43 Last Admin: 03/20/18 11:25 Dose: 100 mls/hr Insulin Human Regular (Humulin R Low) 0 units SC ACHS [facility] PRN Reason: Protocol Last Admin: 03/20/18 13:19 Dose: Not Given Isosorbide Mononitrate (Imdur) 60 mg PO DAILY [facility] Last Admin: 03/20/18 09:29 Dose: 60 mg Levothyroxine Sodium (Synthroid) 25 mcg PO 0600 [facility] Last Admin: 03/20/18 09:38 Dose: 25 mcg Lisinopril (Zestril) 20 mg PO DAILY [facility] Last Admin: 03/20/18 09:29 Dose: 20 mg Lorazepam (Ativan) 0.5 mg IVP Q8 PRN; Protocol PRN Reason: agiation,restlessness Metoprolol Tartrate (Lopressor) 25 mg PO BID [facility] Last Admin: 03/20/18 09:31 Dose: 25 mg Morphine Sulfate (Morphine) 2 mg IVP Q4 [facility] Last Admin: 03/20/18 09:27 Dose: 2 mg Quetiapine Fumarate (Seroquel) 12.5 mg PO Q12 PRN; Protocol PRN Reason: Agitation Last Admin: 03/19/18 22:52 Dose: 12.5 mg Vitamin B Complex/Vit C/Folic Acid (Nephro-Armaan) 1 tab PO 0800 [facility] Last Admin: 03/20/18 09:29 Dose: 1 tab - Labs Labs: 03/20/18 07:00 03/20/18 07:00 PT 20.0 SECONDS (9.4-12.5) 03/19/18 06:30 INR 1.72 03/19/18 06:30 APTT 43.8 Seconds (25.1-36.5) H 03/14/18 08:15
--- NOTE | 2018-03-20 21:34 | PN ---
Copied To: Maury Booker MD Attending MD: Maury Booker MD DATE: 03/20/2018 CARDIOLOGY FOLLOWUP SUBJECTIVE: The patient is without distress. PHYSICAL EXAMINATION: VITAL SIGNS: Blood pressure 153/72, the heart rate is in the 90s. NECK: Negative JVD. LUNGS: Without rales. HEART: S1 and S2. EXTREMITIES: Without edema. LABORATORY DATA: Hemoglobin is 9.7. Chemistries, BUN and creatinine unremarkable. IMPRESSION: 1. Atrial and ventricular arrhythmia. 2. Paroxysmal atrial fibrillation. 3. Aspiration pneumonia. 4. Pulmonary hypertension. 5. Prerenal azotemia is better. Given these findings, no anticoagulation at this time given his hematuria. We cut down on his beta agonist as much as possible. Maury Booker MD
[2018-03-21] MEDS: Morphine 2 mg/ml ISec IVP SCH ×3 (04:00→10:47)
[2018-03-21] MEDS ORDERED: Albuterol-Ipratrop 3 mg / 0.5 (3 ml) UD IH STA (04:20)
[2018-03-21] MEDS: Levothyroxine 25 MCG TAB PO SCH (06:30)
[2018-03-21 07:31] LABS: HEMOGLOBIN 10.4 g/dL (14.0-18.0); MEAN CELL VOLUME 102.9 fl (80.0-105.0); MEAN CORPUSCULAR HEMOGLOBIN 33.3 pg (25.0-35.0); MEAN CORPUSCULAR HGB CONC 32.4 g/dl (31.0-37.0); RBC 3.12 10^6/uL (3.5-6.1); RED CELL DISTRIBUTION WIDTH 16.4 % (11.5-14.5); WHITE BLOOD COUNT 16.5 10^3/ul (4.5-11.0)
[2018-03-21 07:43] LABS: ALB/GLOB RATIO 0.9 (1.1-1.8); ALBUMIN 3.4 g/dL (3.0-4.8); CALCIUM 8.8 mg/dL (8.4-10.5)
--- NOTE | 2018-03-21 08:04 | PN ---
Copied To: Severino Diamond MD Attending MD: Severino Diamond MD DATE: 03/21/2018 PULMONARY NOTE SUBJECTIVE: The patient appears comfortable this morning. He is not short of breath at rest. He is more confused again this morning. PHYSICAL EXAMINATION: VITAL SIGNS: (last noted in the computer): Temperature is 98.6, pulse 61, respirations 18/20, blood pressure 129/57. Oxygen saturation on room air is 96%. HEENT: Normocephalic, atraumatic. No JVD. CARDIOVASCULAR: Systolic ejection murmur at the lower left sternal border. No S3 gallop. LUNGS: Less crackles - right lower lobe. Less rhonchi. No wheezing. EXTREMITIES: No clubbing, cyanosis or edema. Calves are nontender to palpation. GI: Abdomen is soft, nontender and nondistended. Bowel sounds are positive. SKIN: No acute rash. NEUROLOGIC: Limited at the present time. IMPRESSION: 1. Probable aspiration pneumonia - right lower lobe. 2. Mild bronchospasm. 3. Hematuria. 4. Anemia. 5. Renal insufficiency. PLAN: The patient appears comfortable this morning. He is not short of breath at rest. He is more confused this morning. I did discuss the case with the night nurse at length. On physical exam, his bronchospasm is certainly less. In addition, there is no significant alveolar-arterial gradient. The patient repeatedly takes off his oxygen. I would continue with the antibiotic coverage as per Infectious Disease. There are no temperatures noted. The leukocytosis is decreasing overall. Cardiology and Renal evaluations are also noted. Clinical status of the patient is certainly improved - compared to last week. However, the future status/prognosis for this elderly patient does appear very guarded at best/poor. I will discuss the above with Dr. Griggs. Severino Diamond MD MTDNeo
[2018-03-21] MEDS: Albuterol-Ipratrop 3 mg / 0.5 (3 ml) UD IH SCH ×3 (09:12→19:35)
[2018-03-21] MEDS: Meropenem IV 1 gm in NS 50 ML IVPB SCH (10:40)
[2018-03-21] MEDS: Multivitamin Vitamin B Complex (Nephro-Vite) Tab PO SCH (10:46)
--- NOTE | 2018-03-21 11:59 | RAD ---
Date of service: 03/21/2018 HISTORY: pne COMPARISON: 03/15/2018 FINDINGS: LUNGS: New infiltrate in the right upper lobe. No change in right lower lobe infiltrate. PLEURA: No significant pleural effusion identified, no pneumothorax apparent. CARDIOVASCULAR: Moderate cardiomegaly OSSEOUS STRUCTURES: No significant abnormalities. VISUALIZED UPPER ABDOMEN: Normal. OTHER FINDINGS: Single lead pacemaker IMPRESSION: New infiltrate in the right upper lobe. No change in right lower lobe infiltrate.
--- NOTE | 2018-03-21 12:13 | PN ---
Copied To: Dieter Griggs DO Attending MD: Dieter Griggs DO DATE: 03/21/2018 SUBJECTIVE: I saw him this morning, he is completely out of it. I understand he was up last night and I gave him lots of Ativan and now he is very much out of it in bed. He is on Apresoline, Ativan, Doryx, Drisdol, DuoNeb, Fergon, insulin, Imdur, Lopressor, Merrem IV, morphine, folic acid, Norvasc, Seroquel, Synthroid, Zestril and Zyloprim. PHYSICAL EXAMINATION: VITAL SIGNS: He has 98.1 temp, 69 pulse, 142/65 blood pressure, 20 respiratory rate, 94% O2 sat on room air. HEENT: Head is atraumatic, normocephalic. HEART: Regular rate. LUNGS: Decreased breath sounds. ABDOMEN: Soft. EXTREMITIES: No edema. I am very concerned, yesterday he was wonderful sitting up in bed and talking to me, now he is medically sedated. He has had abdominal, he had cysto, he had hematuria, he had CBI and he had aspiration pneumonia. He was doing great yesterday and now he is sedated. I am very concerned about that. I need Psychiatry to help me. LABORATORY DATA: His white count went up to 16.5, 10.4 hemoglobin, 32.1 hematocrit with 264 platelets. His INR is 1.72, I am still not if we should continue with the Coumadin or go to [facility] due to his AFib. He has 146 sodium, BUN 34, creatinine 1.5, GFR is 44, random sugar is 119, calcium is 8.8, total bili is 1.7, AST is 57, ALT is 56, alk phos 89, total protein is 7.1. PLAN: I will discuss this with Cardiology and Infectious Disease and Psychiatry to help me, keep him awake, keep the white count low with antibiotics and see if we can put him back on his Coumadin. We are going to check his labs tomorrow, see where he is at and hopefully we can stay away from his Ativan, if possible at nighttime. Dieter Griggs DO
--- NOTE | 2018-03-21 12:54 | PN ---
Copied To: Ebenezer Ledesma MD Attending MD: Ebenezer Ledesma MD DATE: 03/21/2018 SUBJECTIVE: The patient is in bed, in no acute distress. PHYSICAL EXAMINATION: VITAL SIGNS: Temperature is 98, blood pressure is 140/60, respiratory rate of 20, heart rate of 69. HEENT: Examination of HEENT is unremarkable. NECK: Supple. LUNGS: Have decreased breath sounds. HEART: Normal S1, S2. ABDOMEN: Soft, nontender. LABORATORY DATA: Laboratory examination reveals a white count of 16,500, hemoglobin of 10. BUN of 34, creatinine of 1.5 and procalcitonin is noted to be at 0.34. Urinalysis is noted. Microbiology reveals the blood and urine cultures are negative. Dr. Diamond's note from this morning is reviewed. Dr. Maury Booker's note is also reviewed. ASSESSMENT AND PLAN: An 87-year-old male with sepsis with a right-sided healthcare-associated aspiration pneumonia and hematuria, chronic renal failure, hypertension, hypothyroidism, had completed 5 days of cefepime and increasing white count, now on doxycycline and meropenem. Day #2 of meropenem and day #7 of doxycycline. We will discontinue the doxycycline after today's last dose. The patient's white count is increased to 16,500 this morning. I believe, the patient is having an intermittent aspiration pneumonia. We will follow with you. Overall prognosis is quite poor, should consider comfort care and hospice setting. Ebenezer Ledesma MD
[2018-03-21] MEDS ORDERED: Morphine 2 mg/ml ISec IVP PRN (13:48)
--- NOTE | 2018-03-21 13:49 | CP.PCM.PN ---
Subjective - Date & Time of Evaluation Date of Evaluation: 03/21/18 Time of Evaluation: 13:48 - Subjective Subjective: Nephrology Consultation Note: Assessment: stable Acute Kidney Injury (N17.9) ? hemodynamic injury due to BP fluctuations Anemia, hypokalemia, AMS, hematuria, pneumonia Hyperuricemia Hypertensive Chronic Kidney Disease (I12.9) Chronic Kidney Disease (N18.3) Stage 3 with ? mg proteinuria (R80.9) likely due to HTN/age related decline Plan No acute need for renal replacement therapy at this time. Hypertension control with meds as ordered. hold hctz due to ABEL. increase norvasc 10 mg/day and added prn hydralazine. resume lisinopril 20 mg/day Monitor Input/Output, daily weights and renal function with basic metabolic panel started Iron, MVI and Vit D supplements added allopurinol instead of colchicine for hyperuricemia Dose meds/antibiotics for reduced GFR. Avoid fleets enema/magnesium based laxatives. Avoid nephrotoxins/NSAIDs/ iodinated contrast (unless needed emergently) Glycemic control Further work up/management as per primary team Thanks for allowing me to participate in care of your patient. Will follow patient with you. Please call if any Qs. had d/w team Dr Sher Wallace Office: [phone] Chief Complaint; unable reason for consult: ABEL source of Info: EMR HPI: Pt is a 87 M with hx of hypertension (years) hypothyroidism presented with complaints of blood in urine and underwent cystoscopy and on CBI for hematuria. also found to have pneumonia. renal consult for ABEL. pt with baseline ckd stage 3 with cr 1.3 at baseline. he was deliriuos and unable to provide any hx Denies OTC/herbal meds or NSAIDs No recent iodinated contrast exposure. Noted obvious episodes of high BP in 190s and normal BP. ROS: pt sleepy and not much communicative today Physical Examination: General Appearance: comfortable, in no acute respiratory distress, ill appearing Vitals reviewed and noted as below Head; Atraumatic, normocephalic ENT: no ulcers no thrush. Tongue is midline. Oropharynx: no rash or ulcers. EYES: Pupils are equal, round and reactive to light accommodation. Eye muscles and extraocular movement intact. Sclera is anicteric. Neck; supple no lymphadenopathy, no thyromegaly or bruit Lungs: Normal respiratory rate/effort. Breath sounds bilateral with rales improved Heart: Normal rate. s1s2 normal. No rub or gallop. Extremities: no edema. No varicose veins Neurological: Patient is sleepy today Skin: Warm and dry. Normal turgor. No rash. Palpitation: Normal elasticity for age Abdomen: Abdomen is soft. Bowel sounds +. There is no abdominal tenderness, no guarding/rigidity no organomegaly Psych: no insight and normal affect MSK: no joint tenderness or swelling. Digits and nails normal, no deformity : kidney or bladder not palpable . has Boykin reinserted because of hematuria Labs/imaging reviewed. Past medical history, past surgical history, family history, social history, allergy reviewed and noted as below Family hx: no hx of CKD. Rest non-contributory echo moderate pHTN with normal LVEF Objective - Vital Signs/Intake and Output Vital Signs (last 24 hours): Temp Pulse Resp BP Pulse Ox 100 F H 69 20 142/65 94 L 03/21/18 12:01 03/21/18 10:43 03/21/18 06:00 03/21/18 10:43 03/21/18 06:00 Intake and Output: 03/21/18 03/21/18 06:59 18:59 Intake Total 180 Output Total 400 Balance -220 - Medications Medications: Current Medications Acetaminophen (Tylenol 325mg Tab) 650 mg PO Q6H PRN PRN Reason: Fever >100.4 F Last Admin: 03/21/18 12:01 Dose: 650 mg Albuterol/Ipratropium (Duoneb 3 Mg/0.5 Mg (3 Ml) Ud) 3 ml IH Q2H PRN PRN Reason: Shortness of Breath Albuterol/Ipratropium (Duoneb 3 Mg/0.5 Mg (3 Ml) Ud) 3 ml IH TIDRESP [facility] Last Admin: 03/21/18 09:12 Dose: 3 ml Allopurinol (Zyloprim) 100 mg PO DAILY [facility] Last Admin: 03/21/18 10:39 Dose: 100 mg Amlodipine Besylate (Norvasc) 10 mg PO DAILY [facility] Last Admin: 03/21/18 10:43 Dose: 10 mg Doxycycline Hyclate (Doryx) 100 mg PO Q12 [facility] PRN Reason: Protocol Last Admin: 03/21/18 10:39 Dose: 100 mg Ergocalciferol (Drisdol 50,000 Intl Units Cap) 1 cap PO Q7D [facility] Last Admin: 03/17/18 18:10 Dose: 1 cap Ferrous Gluconate (Fergon) 324 mg PO TID [facility] Last Admin: 03/21/18 10:40 Dose: 324 mg Hydralazine HCl (Apresoline) 25 mg PO Q4 PRN PRN Reason: Other Meropenem (Merrem Iv 1 Gm Premix) 50 mls @ 100 mls/hr IVPB Q12 [facility] PRN Reason: Protocol Stop: 03/28/18 10:43 Last Admin: 03/21/18 10:40 Dose: 100 mls/hr Insulin Human Regular (Humulin R Low) 0 units SC ACHS [facility] PRN Reason: Protocol Last Admin: 03/20/18 21:31 Dose: Not Given Isosorbide Mononitrate (Imdur) 60 mg PO DAILY [facility] Last Admin: 03/21/18 10:39 Dose: 60 mg Levothyroxine Sodium (Synthroid) 25 mcg PO 0600 [facility] Last Admin: 03/21/18 06:30 Dose: Not Given Lisinopril (Zestril) 20 mg PO DAILY [facility] Last Admin: 03/21/18 10:41 Dose: 20 mg Lorazepam (Ativan) 0.5 mg IVP Q8 PRN; Protocol PRN Reason: agiation,restlessness Last Admin: 03/21/18 02:34 Dose: 0.5 mg Metoprolol Tartrate (Lopressor) 25 mg PO BID [facility] Last Admin: 03/21/18 10:43 Dose: 25 mg Quetiapine Fumarate (Seroquel) 50 mg PO [facility] PRN Reason: Protocol Vitamin B Complex/Vit C/Folic Acid (Nephro-Armaan) 1 tab PO 0800 [facility] Last Admin: 03/21/18 10:46 Dose: 1 tab - Labs Labs: 03/21/18 07:15 03/21/18 07:15 PT 20.0 SECONDS (9.4-12.5) 03/19/18 06:30 INR 1.72 03/19/18 06:30 APTT 43.8 Seconds (25.1-36.5) H 03/14/18 08:15
[2018-03-21] MEDS: Insulin Reg-LOW-Coverage SC SCH ×3 (21:58→23:13)
--- NOTE | 2018-03-21 22:20 | PN ---
Copied To: Jami De La Rosa MD Attending MD: Jami De La Rosa MD DATE: 03/21/2018 SUBJECTIVE: Shortly, the patient is an 87-year-old male with multiple medical issues. The patient currently in delirium stage. This engineering writer trying to adjust medication in order to help the patient to maintain good behavioral control and decrease frequency of agitation. This engineering writer suggested to schedule Seroquel 25 mg twice a day, not as needed but scheduled also Ativan as needed for agitation. This engineering writer attempted to speak to the patient today, but the patient is deeply sedated status post medication. The patient was not able to participate in interview, but the patient was able to open his eyes and falling back asleep. Vital signs are reviewed and seems to be stable. Labs reviewed. Discussed with nursing staff, the patient has episodes of agitation and restlessness, trying to pull IV line off, but there is no aggression towards the people. MENTAL STATUS EXAMINATION: As this engineering writer described. IMPRESSION: Most likely, the patient is in delirium stage due to multiple medical issues. Please see medical team notes for more detailed information. PLAN: Seroquel was increased in dose and given as scheduled dose twice a day. Ativan only as needed for anxiety and restlessness. This engineering writer will follow up on this patient every other day. Today, discussed with nurse practitioner, the patient will be improving from the mental standpoint. This engineering writer will suggest, discuss power of state's attorney options in order for the future to have someone who can make decision for the patient. Thank you very much for letting me participate in care of your patient. Should you have any questions, give me a call back. Jami De La Rosa MD
[2018-03-22] MEDS: Levothyroxine 25 MCG TAB PO SCH (05:50)
[2018-03-22 07:23] LABS: HEMOGLOBIN 10.2 g/dL (14.0-18.0); MEAN CELL VOLUME 103.6 fl (80.0-105.0); MEAN CORPUSCULAR HEMOGLOBIN 33.4 pg (25.0-35.0); MEAN CORPUSCULAR HGB CONC 32.3 g/dl (31.0-37.0); MEAN PLATELET VOLUME 10.9 fl (7.0-11.0); RBC 3.05 10^6/uL (3.5-6.1); RED CELL DISTRIBUTION WIDTH 16.7 % (11.5-14.5); WHITE BLOOD COUNT 13.5 10^3/ul (4.5-11.0)
[2018-03-22] MEDS: Albuterol-Ipratrop 3 mg / 0.5 (3 ml) UD IH SCH ×2 (07:23→13:51)
[2018-03-22 07:33] LABS: INR 1.5; PROTHROMBIN TIME 17.4 SECONDS (9.4-12.5)
[2018-03-22 07:37] LABS: ALB/GLOB RATIO 0.9 (1.1-1.8); ALBUMIN 3.3 g/dL (3.0-4.8); ALT/SGPT 48 U/L (7-56); AST/SGOT 62 U/L (17-59); BLOOD UREA NITROGEN 35 mg/dL (7-21); CALCIUM 8.5 mg/dL (8.4-10.5); GFR NON-AFRICAN AMERICAN 52
[2018-03-22] MEDS: Insulin Reg-LOW-Coverage SC SCH ×2 (08:03→12:01)
--- NOTE | 2018-03-22 08:24 | PN ---
Copied To: Severino Diamond MD Attending MD: Severino Diamond MD DATE: 03/22/2018 PULMONARY NOTE SUBJECTIVE: The patient appears comfortable this morning. He is not short of breath at rest. He is less confused (discussed with nurse). PHYSICAL EXAMINATION VITAL SIGNS: (last noted in the computer): Temperature is 98.6, pulse is 68, respirations 18/20, blood pressure 152/73. Oxygen saturation on room air is 93%-96%. HEENT: Normocephalic, atraumatic. No JVD. CARDIOVASCULAR: Systolic ejection murmur at the lower left sternal border. No S3 gallop. LUNGS: Less crackles noted - right lower lobe. Less rhonchi. No wheezing. EXTREMITIES: No clubbing, cyanosis or edema. Calves are nontender to palpation. GI: Abdomen is soft, nontender and nondistended. Bowel sounds are positive. SKIN: No acute rash. NEUROLOGIC: Limited at the present time. PERTINENT LABORATORY DATA: Chest x-ray was repeated yesterday and reviewed. The right lower lobe infiltrate is decreased in size and is improved. There is a questionable new small peripheral patchy infiltrate in the right upper lobe. IMPRESSION 1. Probable aspiration pneumonia. 2. Mild bronchospasm. 3. Hematuria. 4. Anemia. 5. Renal insufficiency. PLAN: The patient appears comfortable this morning. He is not short of breath at rest. He is less confused this morning. I did discuss the case with the night nurse at length. On physical exam, his bronchospasm is significantly less. In addition, there is no significant alveolar-arterial gradient. I will continue the current nebulizer treatments and aspiration precautions for now. I did review the last chest x-ray as above. As noted, there is a decrease/improvement in the right lower lobe infiltrate. However,there is a possible new small patchy peripheral infiltrate in the right upper lobe. Keep in mind, the patient's mental status has waxed and waned over the past week. He is certainly a set up for repeat aspiration pneumonia. We will continue with the aspiration precautions. I did go over the instructions with the nurse again. I would continue with the antibiotic coverage as per Infectious Disease. Input by Dr. Ledesma is noted. Repeat a.m. labs are pending. Clinical status of the patient is certainly improved - compared to his initial presentation. However, it does appear that the overall status/prognosis for this patient is very guarded at best/poor. I will discuss the above with Dr. Griggs. Severino Diamond MD [facility]
[2018-03-22 08:25] VITALS: PULSE 61; RESP 20; TEMP 98; O2SAT 95
--- NOTE | 2018-03-22 08:44 | DS ---
Copied To: Dieter Griggs DO Attending MD: Dieter Griggs DO He is doing better today than yesterday. He is more alert. He is talking. He tells me he is hungry. He is going to need to go to subacute rehab at [facility]. I am hoping he will be able to be discharged today. He will be on Merrem IV over there. He is also Apresoline, Ativan, Doryx, Drisdol, DuoNebs, Fergon, insulin, Imdur, Lopressor, Nephro-Armaan, Norvasc, Seroquel, Synthroid, Tylenol, Zestril and Zyloprim. PHYSICAL EXAMINATION: VITAL SIGNS: He has a 98.6 temperature, 68 pulse, 152/73 blood pressure, 22 respiratory rate and 92% O2 sat on 2 liters nasal cannula. GENERAL: He is very alert and talking with me this morning. He is hungry. HEENT: Head is atraumatic, normocephalic. HEART: Regular rate. LUNGS: Decreased breath sounds, but clear. Occasional congestion, clears with cough. ABDOMEN: Soft, nontender. Positive bowel sounds. EXTREMITIES: No edema. DATA: He has got 13.5 white count, it is coming down nicely from as high as 16. Hemoglobin is 10.2, hematocrit 31.6, platelets are 267. He has a 146 sodium, potassium 3.9, BUN 35, creatinine 1.3, GFR is 52, sugar is 113, calcium is 8.5, total bili is 1.4, AST is 62, ALT is 80, alkaline phosphatase 69, procalcitonin is 0.21. Urine has many bacteria. He had abdominal pain, urinary retention, cystoscopy, aspiration pneumonia, change in mentation and UTI. He has been through a lot and now, he is weak. He needs physical therapy before he goes home. He was seen by Psychiatry, Renal. He has right upper and lower lobe infiltrates, but clinically he is improving. He is also being seen by Pulmonary. Also, going to try and get him to [facility] to finish out the antibiotics there. Dieter Griggs DO [facility] # [id number]
--- NOTE | 2018-03-22 09:10 | PQF ---
PROVIDER RESPONSE TEXT: Post op blood loss REVIEWER QUERY TEXT: Anemia Type Anemia is documented in the Medical Record. Please specify the cause (includes suspected or probable cause) Such as: -- Due to acute blood loss -- Due to chronic blood loss -- Due to iron deficiency -- Due to postoperative blood loss -- Due to chronic disease -- Other, please specify The patient's Clinical Indicators include: Patient admitted with hematuria, slowly decreasing H/H. Please specify type and acuity anemia. Query created by: Lucie Aleman on 03/19/2018 1:58 PM Electronically signed by: Dieter Griggs DO 03/22/2018 9:07 AM
[2018-03-22] MEDS ORDERED: Barium Sulfate Susp 2.1% w/v, 2.0% w/w 450 mL Bottle PO ONE (10:15)
[2018-03-22] MEDS: Multivitamin Vitamin B Complex (Nephro-Vite) Tab PO SCH (10:20)
[2018-03-22 10:23] VITALS: BP 159/67
[2018-03-22] MEDS: Meropenem IV 1 gm in NS 50 ML IVPB SCH (10:23)
[2018-03-22] MEDS ORDERED: Iohexol 350 MG/100 ML VIAL ONE (11:56)
--- NOTE | 2018-03-22 12:35 | CP.PCM.PN ---
Subjective - Date & Time of Evaluation Date of Evaluation: 03/22/18 Time of Evaluation: 12:33 - Subjective Subjective: Nephrology Consultation Note: Assessment: stable Acute Kidney Injury (N17.9) ? 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 mg proteinuria (R80.9) likely due to HTN/age related decline Anemia, hypokalemia, AMS, hematuria, pneumonia Hyperuricemia Plan No acute need for renal replacement therapy at this time. Hypertension control with meds as ordered. hold hctz due to ABEL. increase norvasc 10 mg/day and added prn hydralazine. resume lisinopril 20 mg/day Monitor Input/Output, daily weights and renal function with basic metabolic panel started Iron, MVI and Vit D supplements added allopurinol instead of colchicine pt ordered for CT with IV contrast by urology, will hydrate with NS @ 100 ml/hr Dose meds/antibiotics for reduced GFR. Avoid fleets enema/magnesium based laxatives. Avoid nephrotoxins/NSAIDs/ iodinated contrast (unless needed emergently) Glycemic control Further work up/management as per primary team Thanks for allowing me to participate in care of your patient. Will follow patient with you. Please call if any Qs Dr Sher Wallace Office: [phone] Chief Complaint; unable reason for consult: ABEL source of Info: EMR HPI: Pt is a 87 M with hx of hypertension (years) hypothyroidism presented with complaints of blood in urine and underwent cystoscopy and on CBI for hematuria. also found to have pneumonia. renal consult for ABEL. pt with baseline ckd stage 3 with cr 1.3 at baseline. he was deliriuos and unable to provide any hx Denies OTC/herbal meds or NSAIDs No recent iodinated contrast exposure. Noted obvious episodes of high BP in 190s and normal BP. ROS: pt feels better. denies CP/SOB/pain Physical Examination: General Appearance: comfortable, in no acute respiratory distress, better appearing Vitals reviewed and noted as below Head; Atraumatic, normocephalic ENT: no ulcers no thrush. Tongue is midline. Oropharynx: no rash or ulcers. EYES: Pupils are equal, round and reactive to light accommodation. Eye muscles and extraocular movement intact. Sclera is anicteric. Neck; supple no lymphadenopathy, no thyromegaly or bruit Lungs: Normal respiratory rate/effort. Breath sounds bilateral with rales improved Heart: Normal rate. s1s2 normal. No rub or gallop. Extremities: no edema. No varicose veins Neurological: Patient is more calm and alert awaeka, bit confused Skin: Warm and dry. Normal turgor. No rash. Palpitation: Normal elasticity for age Abdomen: Abdomen is soft. Bowel sounds +. There is no abdominal tenderness, no guarding/rigidity no organomegaly Psych: no insight and normal affect MSK: no joint tenderness or swelling. Digits and nails normal, no deformity : kidney or bladder not palpable . has Boykin reinserted because of hematuria Labs/imaging reviewed. Past medical history, past surgical history, family history, social history, allergy reviewed and noted as below Family hx: no hx of CKD. Rest non-contributory echo moderate pHTN with normal LVEF Objective - Vital Signs/Intake and Output Vital Signs (last 24 hours): Temp Pulse Resp BP Pulse Ox 98 F 61 20 159/67 H 95 03/22/18 06:00 03/22/18 10:21 03/22/18 06:00 03/22/18 10:22 03/22/18 06:00 Intake and Output: 03/22/18 03/22/18 06:59 18:59 Intake Total 180 Output Total 100 Balance 80 - Medications Medications: Current Medications Acetaminophen (Tylenol 325mg Tab) 650 mg PO Q6H PRN PRN Reason: Fever >100.4 F Last Admin: 03/21/18 12:01 Dose: 650 mg Albuterol/Ipratropium (Duoneb 3 Mg/0.5 Mg (3 Ml) Ud) 3 ml IH Q2H PRN PRN Reason: Shortness of Breath Albuterol/Ipratropium (Duoneb 3 Mg/0.5 Mg (3 Ml) Ud) 3 ml IH TIDRESP [facility] Last Admin: 03/22/18 07:23 Dose: 3 ml Allopurinol (Zyloprim) 100 mg PO DAILY [facility] Last Admin: 03/22/18 10:22 Dose: 100 mg Amlodipine Besylate (Norvasc) 10 mg PO DAILY [facility] Last Admin: 03/22/18 10:21 Dose: 10 mg Doxycycline Hyclate (Doryx) 100 mg PO Q12 SURI PRN Reason: Protocol Last Admin: 03/22/18 10:21 Dose: 100 mg Ergocalciferol (Drisdol 50,000 Intl Units Cap) 1 cap PO Q7D [facility] Last Admin: 03/17/18 18:10 Dose: 1 cap Ferrous Gluconate (Fergon) 324 mg PO TID [facility] Last Admin: 03/22/18 10:21 Dose: 324 mg Hydralazine HCl (Apresoline) 25 mg PO Q4 PRN PRN Reason: Other Meropenem (Merrem Iv 1 Gm Premix) 50 mls @ 100 mls/hr IVPB Q12 SURI PRN Reason: Protocol Stop: 03/28/18 10:43 Last Admin: 03/22/18 10:23 Dose: 100 mls/hr Sodium Chloride (Sodium Chloride 0.9%) 1,000 mls @ 100 mls/hr IV .Q10H [facility] Stop: 03/22/18 22:46 Insulin Human Regular (Humulin R Low) 0 units SC ACHS [facility] PRN Reason: Protocol Last Admin: 03/22/18 12:01 Dose: Not Given Isosorbide Mononitrate (Imdur) 60 mg PO DAILY [facility] Last Admin: 03/22/18 10:23 Dose: 60 mg Levothyroxine Sodium (Synthroid) 25 mcg PO 0600 [facility] Last Admin: 03/22/18 05:50 Dose: 25 mcg Lisinopril (Zestril) 20 mg PO DAILY [facility] Last Admin: 03/22/18 10:21 Dose: 20 mg Lorazepam (Ativan) 0.5 mg IVP Q8 PRN; Protocol PRN Reason: agiation,restlessness Last Admin: 03/22/18 12:30 Dose: 0.5 mg Metoprolol Tartrate (Lopressor) 25 mg PO BID [facility] Last Admin: 03/22/18 10:22 Dose: 25 mg Morphine Sulfate (Morphine) 2 mg IVP Q6H PRN PRN Reason: Pain, severe (8-10) Quetiapine Fumarate (Seroquel) 50 mg PO AMHS [facility] PRN Reason: Protocol Last Admin: 03/22/18 10:21 Dose: 50 mg Vitamin B Complex/Vit C/Folic Acid (Nephro-Armaan) 1 tab PO 0800 [facility] Last Admin: 03/22/18 10:20 Dose: 1 tab - Labs Labs: 03/22/18 07:00 03/22/18 07:00 PT 17.4 SECONDS (9.4-12.5) H 03/22/18 07:00 INR 1.50 03/22/18 07:00 APTT 43.8 Seconds (25.1-36.5) H 03/14/18 08:15
--- NOTE | 2018-03-22 12:41 | PN ---
Copied To: Jami De La Rosa MD Attending MD: Jami De La Rosa MD DATE: 03/22/2018 FOLLOWUP NOTE SUBJECTIVE: The patient was seen and examined today for followup. The patient was in delirium stage. This production underwriter adjusted medication yesterday. This production underwriter initiated Seroquel 50 mg twice a day at the morning time, at the nighttime and Ativan only as needed for agitation and restlessness. The patient tolerated that changes very well today. The patient presented to be alert, was pleasant, complained of the pain in his hip and his back, but there is no agitation, no aggression. The patient did not try to pull his IV lines or Boykin catheter. Labs reviewed. WBC cells 13.5, hemoglobin and hematocrit 10.2 and 31.6 respectively. Coagulation reviewed. Chemistry reviewed. Urinalysis reviewed. Most recent was from 03/19/2018. Digoxin 0.5. MENTAL STATUS EXAMINATION: The patient is more alert, coherent, fair eye contact. Speech was more coherent. Mood described as I am in pain. Affect was constricted, but more reactive. Thought process seems to be more coherent and goal directed. Thought content, the patient denied visual, auditory or tactile hallucinations. Denied paranoid ideation. The patient denied thoughts of harming himself or others. Denied intent or plan. Insight and judgment seems to be limited, but improving so far. Impulses are better controlled. IMPRESSION: The patient was in delirium stage due to multiple medical issues, acute kidney injury, anemia, hypokalemia. The patient also has hypothyroidism. The patient had cystoscopy and hematuria. PLAN: The patient is scheduled for subacute rehab. No objection over that. The patient should continue all of the medication as of now. The patient is to be seen by psychiatrist in the subacute rehab within 72 hours in order to make determination if the patient needs to continue Seroquel. I hope that the patient will be improving and does not need to have psychotropic medications. The patient is not suicidal. The patient is not homicidal. The patient is in good behavioral control. This production underwriter will sign off. Should you have any questions, give me a call back. Jami De La Rosa MD [facility] # [id number]
[2018-03-22] MEDS ORDERED: Sodium Chloride 0.9% 1,000 ML IV SCH (12:45)
--- NOTE | 2018-03-22 16:04 | CP.PCM.PN ---
Subjective - Date & Time of Evaluation Date of Evaluation: 03/22/18 Time of Evaluation: 13:25 - Subjective Subjective: Comfortable in bed, no fevers, not in distress. Objective - Vital Signs/Intake and Output Vital Signs (last 24 hours): Temp Pulse Resp BP Pulse Ox 98 F 61 20 159/67 H 95 03/22/18 06:00 03/22/18 10:21 03/22/18 06:00 03/22/18 10:22 03/22/18 06:00 Intake and Output: 03/22/18 03/22/18 06:59 18:59 Intake Total 180 Output Total 100 Balance 80 - Medications Medications: Current Medications Acetaminophen (Tylenol 325mg Tab) 650 mg PO Q6H PRN PRN Reason: Fever >100.4 F Last Admin: 03/21/18 12:01 Dose: 650 mg Albuterol/Ipratropium (Duoneb 3 Mg/0.5 Mg (3 Ml) Ud) 3 ml IH Q2H PRN PRN Reason: Shortness of Breath Albuterol/Ipratropium (Duoneb 3 Mg/0.5 Mg (3 Ml) Ud) 3 ml IH TIDRESP [facility] Last Admin: 03/22/18 07:23 Dose: 3 ml Allopurinol (Zyloprim) 100 mg PO DAILY [facility] Last Admin: 03/22/18 10:22 Dose: 100 mg Amlodipine Besylate (Norvasc) 10 mg PO DAILY [facility] Last Admin: 03/22/18 10:21 Dose: 10 mg Doxycycline Hyclate (Doryx) 100 mg PO Q12 S[facility] PRN Reason: Protocol Last Admin: 03/22/18 10:21 Dose: 100 mg Ergocalciferol (Drisdol 50,000 Intl Units Cap) 1 cap PO Q7D [facility] Last Admin: 03/17/18 18:10 Dose: 1 cap Ferrous Gluconate (Fergon) 324 mg PO TID [facility] Last Admin: 03/22/18 10:21 Dose: 324 mg Hydralazine HCl (Apresoline) 25 mg PO Q4 PRN PRN Reason: Other Meropenem (Merrem Iv 1 Gm Premix) 50 mls @ 100 mls/hr IVPB Q12 [facility] PRN Reason: Protocol Stop: 03/28/18 10:43 Last Admin: 03/22/18 10:23 Dose: 100 mls/hr Insulin Human Regular (Humulin R Low) 0 units SC ACHS [facility] PRN Reason: Protocol Last Admin: 03/22/18 08:03 Dose: Not Given Isosorbide Mononitrate (Imdur) 60 mg PO DAILY [facility] Last Admin: 03/22/18 10:23 Dose: 60 mg Levothyroxine Sodium (Synthroid) 25 mcg PO 0600 [facility] Last Admin: 03/22/18 05:50 Dose: 25 mcg Lisinopril (Zestril) 20 mg PO DAILY [facility] Last Admin: 03/22/18 10:21 Dose: 20 mg Lorazepam (Ativan) 0.5 mg IVP Q8 PRN; Protocol PRN Reason: agiation,restlessness Last Admin: 03/21/18 02:34 Dose: 0.5 mg Metoprolol Tartrate (Lopressor) 25 mg PO BID [facility] Last Admin: 03/22/18 10:22 Dose: 25 mg Morphine Sulfate (Morphine) 2 mg IVP Q6H PRN PRN Reason: Pain, severe (8-10) Quetiapine Fumarate (Seroquel) 50 mg PO [facility] PRN Reason: Protocol Last Admin: 03/22/18 10:21 Dose: 50 mg Vitamin B Complex/Vit C/Folic Acid (Nephro-Armaan) 1 tab PO 0800 [facility] Last Admin: 03/22/18 10:20 Dose: 1 tab - Labs Labs: 03/22/18 07:00 03/22/18 07:00 PT 17.4 SECONDS (9.4-12.5) H 03/22/18 07:00 INR 1.50 03/22/18 07:00 APTT 43.8 Seconds (25.1-36.5) H 03/14/18 08:15 - Constitutional Appears: Non-toxic, Chronically Ill - Head Exam Head Exam: NORMAL INSPECTION - Respiratory Exam Respiratory Exam: Decreased Breath Sounds - Cardiovascular Exam Cardiovascular Exam: +S1, +S2 - GI/Abdominal Exam GI & Abdominal Exam: Soft. absent: Tenderness Assessment and Plan - Assessment and Plan (Free Text) Plan: Assessment sepsis due to right sided HCAP hematuria, etiology to be determined chronic renal failure HTN hypothyroidism S/P pacemaker placement Plan continue Merrem day 3 to complete up to 7 days of therapy follow up further Urology recommendations discussed with Dr. Griggs
--- NOTE | 2018-04-18 08:49 | PN ---
Copied To: Mauricio Momin MD Attending MD: Mauricio Momin MD DATE: 03/15/2018 UROLOGY PROGRESS NOTE SUBJECTIVE: See the consultation from 03/13/2018. See the operative note from 03/14/2018. The patient is postop day 1 after cystoscopy and evacuation of clot. The Boykin catheter is currently draining relatively clear pink urine. Vital signs are noted. The patient is resting relatively comfortably. Past medical and surgical are all otherwise unchanged. REVIEW OF SYSTEMS: Listed above, noncontributory. PHYSICAL EXAMINATION: GENERAL: Well-developed, well-nourished male. He is currently resting comfortably. GENITOURINARY: Boykin catheter noted. Draining well. DIAGNOSES: Gross hematuria, clot, urinary retention. The patient is now status post cystoscopy, evacuation of clot. PLAN: The plan will be as follows: 1. We will maintain this Boykin. 2. We are going to recommend and to consider strongly further evaluation if he is medically cleared for further surgical procedure after the patient is cleared medically and the family and the son and daughter consent. I have had multiple conversations with them. In general, it is a difficult 87 years old. He is frail and we will have to make further plans. My recommendation is going to be for further surgical intervention. If he can get medical clearance, we will have to discuss further. Mauricio Momin MD
--- NOTE | 2018-04-18 11:09 | PN ---
Copied To: Mauricio Momin MD Attending MD: Mauricio Momin MD DATE: 04/18/2018 IMMEDIATE POSTOPERATIVE NOTE SUBJECTIVE: See the operative note, consultation note. The patient is in the Recovery Room in stable condition. Vital signs noted. Boykin catheter is now with CBI, draining relatively clear urine. The diagnoses then is hematuria, clot urinary retention, bladder lesion. Urology plan is as follows, maintain with current Boykin. Monitor the patient. We will discuss further options. We will need to review further . We may consider all other options. Again trying to balance the very difficult medical situation and Urology issues. Mauricio Momin MD
--- NOTE | 2018-04-18 15:56 | CON ---
Copied To: Mauricio Momin MD Attending MD: Mauricio Momin MD DATE: 03/13/2018 UROLOGY CONSULTATION REASON FOR CONSULTATION: Gross hematuria and bladder lesion. HISTORY OF PRESENT ILLNESS: Mr. Ricardo Sr is a very pleasant gentleman who is an elderly frail 87-year-old gentleman. He has a known bladder lesion. See many previously dictated notes where we discussed the options for resection when he is not bleeding, though the family does not bring him back. He is currently having bleeding. See the plans listed below. We are going to recommend a cystoscopy. We discussed with the family the recommendations for resection, we assured his medical clearance. See previous notes. He had tremendous events after some medications that were used for sedation. He has a tremendous amount of fear and concern, so thus far, we have been following the family requested guidelines. From a urology standpoint, we are going to recommend a cystoscopy. PAST MEDICAL AND SURGICAL HISTORY: Listed on the chart. MEDICATIONS: See the chart. ALLERGIES: ALL THIS IS LISTED ON THE CHART. PHYSICAL EXAMINATION GENERAL: A well-nourished male, currently difficult to evaluate, but appeared that his abdomen is relatively distended. See the plans listed below. Boykin catheter with tremendous amount of blood. DIAGNOSES: Gross hematuria, clot urinary retention, bladder mass. PLAN: The plan is as follows; we will review the previous imaging and then make further plans. The patient is also back and forth with blood thinner and we need to discuss various options given his medical condition now, it is very difficult to make many recommendations. Because of concern for bleeding and then if stop the bleeding, concern for a cardiovascular event, stroke, etc. Though, we , the patient is also very sensitive to any medications, narcotics particularly. Though, in summary, very pleasant 87-year-old gentleman with a very difficult medical situation here from Urology standpoint. We are going to bring the patient to the operating room and as best as possible, evacuate all the clots. With a minimal amount of anesthesia as possible, we will then discuss the possibility to try to optimize his condition and see what else we can do. I discussed this with the medical team and I discussed with the patient, but mostly discussed it also with his son. The plan is as follows; we are going to plan for a cystoscopy and evacuation of clots and then further plans will follow. Thank you for the consultation. Mauricio Momin MD
--- NOTE | 2018-04-18 16:26 | OP ---
Copied To: Mauricio Momin MD Attending MD: Mauricio Momin MD. PROCEDURE DATE: 03/14/2018 UROLOGY OPERATIVE NOTE PREOPERATIVE DIAGNOSES: Gross hematuria, bladder mass, clot urinary retention, catheter dysfunction. POSTOPERATIVE DIAGNOSES: Gross hematuria, bladder mass, clot urinary retention, catheter dysfunction. PROCEDURES: Cystoscopy, evacuation of tremendous amount of clots and fulguration of anything as best as we could, gently and see if we could control the bleeding. COMPLICATIONS: None. BLOOD LOSS: Less than 25 mL. At the termination of the procedure, we were able to control the bleeding, we left a 3-way catheter with the urine clear. INDICATIONS: See history and physical and consultation. The patient agreed for the above procedure. Very pleasant, but somewhat noncompliant gentleman and with family. With multiple medical issues with difficult medical management situation as to what to do, he is here now though to control the bleeding, empty out the bladder, get a good working catheter which we were able to accomplish. UROLOGY OPERATIVE FINDINGS: As best as we could see, again the patient was with minimal anesthesia for multiple concerns. The anterior meatus is normal, no strictures. Verumontanum is visually occlusive. The blood is evacuated. There appears to be around the bladder neck within the bladder itself, some bleeding that we just fulgurated. No biopsy was taken in this situation. Overall, patient tolerated the procedure without complications. By the termination of the procedure, he had clear urine that was draining well and there were no complications. After obtaining informed consent from both the patient and from his son, I at great length. We introduced cystoscope via the urethra, we irrigated out tremendous amount of clots. Pictures were taken and saved. The bleeding seems to be rather than the whole prostate, on the patient's left side; on the right side of the screen, some bleeding near the bladder neck. As best as gently we could, tried fulgurating. After we evacuated all the clot, we then inserted a Boykin catheter by the urethra and a large balloon and put a traction on it hoping that this will compress and hold some of the bleeding and connect to CBI. Overall, the patient tolerated the procedure without complications. Mauricio Momin MD
== END 2018-03-22 14:28 | DRG 668 ==
LOC: ED 06:45 → ERH 09:22 → 5RNO 10:34 → 2RSO 19:46 → 5RSO 03-19 22:12
PROVIDERS: ADMIT Family Medicine; ATTEND Family Medicine
PROC: 0TCB8ZZ Extirpation of Matter from Bladder, Via Natural or Artificial Opening Endoscopic (ICD-10-PCS; 2018-03-14)
PROC: 0T5C8ZZ Destruction of Bladder Neck, Via Natural or Artificial Opening Endoscopic (ICD-10-PCS; principal; 2018-03-14 14:30)
DX: R31.0 Gross hematuria (principal); A41.9 Sepsis, unspecified organism; J69.0 Pneumonitis due to inhalation of food and vomit; G93.40 Encephalopathy, unspecified; I47.2 Ventricular tachycardia; N39.0 Urinary tract infection, site not specified; N17.9 Acute kidney failure, unspecified; E03.9 Hypothyroidism, unspecified; I48.2 Chronic atrial fibrillation; I27.20 Pulmonary hypertension, unspecified; I35.1 Nonrheumatic aortic (valve) insufficiency; I12.9 Hypertensive chronic kidney disease with stage 1 through stage 4 chronic kidney disease, or unspecified chronic kidney disease; N18.3 Chronic kidney disease, stage 3 (moderate); R33.9 Retention of urine, unspecified; E87.6 Hypokalemia; E79.0 Hyperuricemia without signs of inflammatory arthritis and tophaceous disease; R80.9 Proteinuria, unspecified; Y95 Nosocomial condition; I48.0 Paroxysmal atrial fibrillation; R41.0 Disorientation, unspecified; D50.0 Iron deficiency anemia secondary to blood loss (chronic); Z79.01 Long term (current) use of anticoagulants; Z95.0 Presence of cardiac pacemaker; Z87.891 Personal history of nicotine dependence

== ENCOUNTER 2018-04-18 10:58 | Emergency (ER) | payer MEDICARE, OTHER ==
[2018-04-18 10:58] VITALS: PULSE 62
[2018-04-18 11:14] VITALS: BMI 25.8
--- NOTE | 2018-04-18 11:45 | ED PDOC ---
Arrival/HPI - General Chief Complaint: Chest Pain Time Seen by Provider: 04/18/18 11:15 Historian: Patient, Family (translates [place]) - History of Present Illness Narrative History of Present Illness (Text): 04/18/18 11:34 A 87 year old male, whose past medical history includes hypertension, hypothyroidism, hematuria, and a pacemaker, who is accompanied by family( translates in [place]), presents to the emergency department complaining of epigastric abdominal/chest pain. Patient reports also experiencing nausea and questionable fever. Per family, patient was weak upon being picked up yesterday after being at [facility] for the past 4 weeks. However yesterday patient was not experiening any pain. Around 06:30 this morning, he began complaining to family about pain. Patient denies vomiting, diarrhea, or any other complaints at this time. He did not have a bowel movement today. PMD: Dr. Griggs Past Medical History - Provider Review Nursing Documentation Reviewed: Yes - Infectious Disease Hx of Infectious Diseases: None - Tetanus Immunization Tetanus Immunization: Unknown - Cardiac Hx Cardiac Disorders: Yes Hx Atrial Fibrillation: Yes Hx Hypertension: Yes Hx Pacemaker: Yes - Pulmonary Hx Respiratory Disorders: No - Neurological Hx Neurological Disorder: No Hx Paralysis: No - HEENT Hx HEENT Disorder: No - Renal Hx Renal Disorder: No - Endocrine/Metabolic Hx Endocrine Disorders: Yes Hx Hypothyroidism: Yes - Hematological/Oncological Hx Blood Disorders: No Hx Blood Transfusions: No Hx Blood Transfusion Reaction: (NA) - Integumentary Hx Dermatological Disorder: No - Musculoskeletal/Rheumatological Hx Musculoskeletal Disorders: Yes - Gastrointestinal Hx Gastrointestinal Disorders: No - Genitourinary/Gynecological Hx Genitourinary Disorders: Yes Hx Hematuria: Yes - Psychiatric Hx Psychophysiologic Disorder: No Hx Emotional Abuse: No Hx Physical Abuse: No Hx Substance Use: No - Past Surgical History Past Surgical History: No Previous - Anesthesia Hx Anesthesia: Yes Hx Anesthesia Reactions: Yes (bradycardia, asystole) Hx Malignant Hyperthermia: No - Suicidal Assessment Feels Threatened In Home Enviroment: No Family/Social History - Physician Review Nursing Documentation Reviewed: Yes Family/Social History: No Known Family HX Smoking Status: Never Smoked Hx Alcohol Use: Yes (occasional glass of wine) Hx Substance Use: No Hx Substance Use Treatment: No Allergies/Home Meds Allergies/Adverse Reactions: Allergies No Known Allergies Allergy (Verified 03/14/18 11:46) Home Medications: Home Meds Medication Instructions Recorded Confirmed Warfarin [Coumadin] 3 mg PO QPM 01/18/15 04/19/18 Levothyroxine [Synthroid] 25 mcg PO DAILY 01/01/16 04/19/18 Amlodipine Besylate [Norvasc] 10 mg PO DAILY 04/01/16 04/19/18 Digoxin [Digitek] 1 tab PO DAILY 04/01/16 04/19/18 Isosorbide Mononitrate [Isosorbide 1 tab PO DAILY 04/01/16 04/19/18 Mononitrate ER] Lisinopril 20 mg PO DAILY 04/01/16 04/19/18 Metoprolol Tartrate [Lopressor] 25 mg PO BID 04/01/16 04/19/18 Allopurinol [Zyloprim] 100 mg PO DAILY 04/19/18 04/19/18 Tamsulosin [Flomax] 0.4 mg PO DAILY 04/19/18 04/19/18 Review of Systems - Physician Review All systems were reviewed & negative as marked: Yes - Review of Systems Constitutional: Fevers (questionable) Cardiovascular: Chest Pain Gastrointestinal: Abdominal Pain (epigastric region), Nausea. absent: Diarrhea , Vomiting Physical Exam - Physical Exam Narrative Physical Exam (Text): Gen: VS reviewed, alert, well developed, well nourished, nontoxic, mild distress. ENT: normal pharynx Eye: EOMI, PERRL Neck: no JVD, supple, no adenopathy CV: regular rate, regular rhythm, no rubs, no murmur, no gallops, S1, S2, pulses equal and strong Pulm: no distress, clear to auscultation, no wheeze, no rhonchi, breath sounds equal, no rales Abd: mild epigastric/RUQ tenderness, no guarding, no rebound, no rigidity, normal bowel sounds Ext: no edema Skin: good color, no rash, no cyanosis Psych: responds appropriately to questions, normal affect Neuro: oriented x 3, CN2-12 intact grossly, motor intact, sensation intact Vital Signs Temp Pulse Resp BP Pulse Ox 04/18/18 16:55 98.2 F 90 20 134/74 96 04/18/18 16:49 98.2 F 90 18 134/74 96 04/18/18 14:14 70 18 144/49 L 99 04/18/18 11:28 98.3 F 04/18/18 10:58 100.2 F H 61 22 129/73 98 Temperature: Afebrile Blood Pressure: Normal Pulse: Regular Respiratory Rate: Normal Appearance: Positive for: Well-Appearing, Non-Toxic, Comfortable Pain Distress: None Mental Status: Positive for: Alert and Oriented X 3 Medical Decision Making ED Course and Treatment: 04/18/18 11:37 Impression: 87 year old male with epigastric/chest pain. Physical exam shows mild epigastric/RUQ tenderness, no guarding/rebound/rigidity. Plan: -- Labs -- UA -- Urine Culture -- Gallbladder & Pancreas Ultrasound -- Reassess and disposition Prior Visits: Notes and results from previous visits were reviewed. Patient was last seen here in the emergency department on 03/14/2018 for difficulty urinating and hematuria. Patient was admitted. Progress Notes: EKG: Ordered, reviewed, and independently interpreted the EKG. Rate : 61 BPM Rhythm : Atrial Fibrillation Interpretation : 100% ventricular pacemaker.. Comparison : No previous EKG for comparison. 04/18/2018 12:53 Gallbladder & Pancreas Ultrasound IMPRESSION: Likely hepatic steatosis. No intrahepatic biliary dilatation or gross attic mass appreciable. Normal caliber CBD. Unremarkable gallbladder. Pancreas completely obscured by overlying bowel gas. 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 Dictator: Tim Stone MD 04/18/18 13:05 Abd/Pelvis CT ordered for further evaluation. 04/18/18 13:45 bedside re-eval, patient comfortabl, is drinking oral con, no complaints at this time 04/18/2018 15:42 Abd/Pelvis CT IMPRESSION: Right-sided bladder mass. Measuring 3.9 x 2.4 cm. Left-sided bladder diverticulum. No change from several days earlier. Dictator: Salvador Adam MD - Lab Interpretations Microbiology Results: Microbiology Results 04/18/18 14:20 Urine,Clean Catch Urine Culture - Final No Growth (<1,000 CFU/ML) Lab Results: 04/18/18 12:06 04/18/18 12:06 Lab Results 04/18/18 14:20: Urine Color Yellow, Urine Appearance Clear, Urine pH 6.0, Ur Specific [place] 1.010, Urine Protein Trace H, Urine Glucose (UA) Negative, Urine Ketones Negative, Urine Blood Moderate H, Urine Nitrate Negative, Urine Bilirubin Negative, Urine Urobilinogen 0.2, Ur Leukocyte Esterase Small H, Urine RBC 20 - 25, Urine WBC 5 - 10, Ur Epithelial Cells None, Amorphous Sediment Few, Urine Bacteria Many 04/18/18 12:06: Sodium 139, Potassium 4.2, Chloride 107, Carbon Dioxide 23, Anion Gap 14, BUN 29 H, Creatinine 1.6 H, Est GFR ( Amer) 50, Est GFR ( Non-Af Amer) 41, Random Glucose 140 H, Calcium 8.4, Total Bilirubin 0.7, AST 48 , ALT 52, Alkaline Phosphatase 81, Troponin I 0.06 D, Total Protein 7.1, Albumin 3.4, Globulin 3.7, Albumin/Globulin Ratio 0.9 L, Lipase 55 04/18/18 12:06: PT 15.1 H, INR 1.31, APTT 29.7 04/18/18 12:06: WBC 7.0 D, RBC 3.49 L, Hgb 11.7 L, Hct 34.4 L, MCV 98.6 D, MCH 33.5, MCHC 34.0, RDW 15.2 H, Plt Count 218, MPV 10.2, Gran % 68.3 H, Lymph % (Auto) 20.4 L, [place] % (Auto) 8.8 H, Eos % (Auto) 2.1, Baso % (Auto) 0.4, Gran # 4.79, Lymph # (Auto) 1.4, [place] # (Auto) 0.6, Eos # (Auto) 0.2, Baso # (Auto) 0.03 - RAD Interpretation Radiology Orders: 04/18/18 11:38 GALLBLADDER & PANCREAS [US] Stat 04/18/18 13:05 ABDOMEN & PELVIS [ABD & PELVIS PO CONTRAST ONLY] [CT] Stat - Scribe Statement The provider has reviewed the documentation as recorded by the Ivory Cornelius Provider Scribe Provider Scribe Attestation: All medical record entries made by the Scribe were at my direction and personally dictated by me. I have reviewed the chart and agree that the record accurately reflects my personal performance of the history, physical exam, medical decision making, and the department course for this patient. I have also personally directed, reviewed, and agree with the discharge instructions and disposition. Disposition/Present on Arrival - Present on Arrival Any Indicators Present on Arrival: No History of DVT/PE: No History of Uncontrolled Diabetes: No Urinary Catheter: No History of Decub. Ulcer: No History Surgical Site Infection Following: None - Disposition Have Diagnosis and Disposition been Completed?: Yes Diagnosis: Abdominal pain Disposition: HOME/ ROUTINE Disposition Time: 18:41 Patient Plan: Discharge Patient Problems: Current Active Problems Problem Status Onset Chest pain Acute Condition: STABLE Discharge Instructions (ExitCare): Acute Abdomen (Belly Pain), Adult (DC), Acid Reflux (GERD), Adolescent (DC) Print Language: MARTIN[place] Additional Instructions: Return for any new or worsening symptoms. Follow up with your primary care doctor. If the pain persists, you may need to see a syrup shed supervisor for follow up. REGINE FERRIS, thank you for letting us take care of you today. Your provider was Dr. Yogi Johnson and you were treated for upper abdominal pain. The emergency medical care you received today was directed at your acute symptoms. If you were prescribed any medication, please fill it and take as directed. It may take several days for your symptoms to resolve. Return to the Emergency Department if your symptoms worsen, do not improve, or if you have any other problems. Please contact your doctor or call one of the physicians/clinics you have been referred to that are listed on the Patient Visit Information form that is included in your discharge packet. Bring any paperwork you were given at discharge with you along with any medications you are taking to your follow up visit. Our treatment cannot replace ongoing medical care by a primary care provider outside of the emergency department. Thank you for allowing the [facility] team to be part of your care today. If you had an X-Ray or CT scan: A Radiologist will review the ED reading if any change in treatment is needed we will contact you. If you had a blood, urine, or wound culture: It will take several days for the results, if any change in treatment is needed we will contact you. If you had an STI test: It will take 48 hours for the results. Please call after 1 week if you have not heard back. Referrals: Dieter Griggs, [Primary Care Provider] - Follow up with primary Forms: SKURA (Senegalese)
[2018-04-18 12:13] LABS: BASO # 0.03 K/mm3 (0.0-2.0); BASO % 0.4 % (0.0-3.0); EOS # 0.2 (0.0-0.7); EOS % 2.1 % (1.5-5.0); GRAN # 4.79 (1.4-6.5); GRAN % 68.3 % (50.0-68.0); HEMOGLOBIN 11.7 g/dL (14.0-18.0); LYMPH # 1.4 (1.2-3.4); LYMPH % 20.4 % (22.0-35.0); MEAN CELL VOLUME 98.6 fl (80.0-105.0); MEAN CORPUSCULAR HEMOGLOBIN 33.5 pg (25.0-35.0); MEAN PLATELET VOLUME 10.2 fl (7.0-11.0); MONO # 0.6 (0.1-0.6); MONO % 8.8 % (1.0-6.0); RBC 3.49 10^6/uL (3.5-6.1); RED CELL DISTRIBUTION WIDTH 15.2 % (11.5-14.5)
[2018-04-18 12:21] LABS: INR 1.31; PARTIAL THROMBOPLASTIN TIME 29.7 Seconds (25.1-36.5); PROTHROMBIN TIME 15.1 SECONDS (9.4-12.5)
[2018-04-18 12:27] LABS: ALB/GLOB RATIO 0.9 (1.1-1.8); ALBUMIN 3.4 g/dL (3.0-4.8); CALCIUM 8.4 mg/dL (8.4-10.5)
[2018-04-18 12:33] LABS: TROPONIN I 0.06 ng/mL
--- NOTE | 2018-04-18 12:55 | US ---
Date of service: 04/18/2018 HISTORY: pain, ?gallstones COMPARISON: None. TECHNIQUE: Sonographic evaluation of the right upper quadrant of the abdomen. FINDINGS: LIVER: Measures 14.7 cm in length. Echogenic hepatic parenchyma diffusely noted may be compatible with hepatic steatosis. Other etiologies are possible. . No mass. No intrahepatic bile duct dilatation. GALLBLADDER: Unremarkable. No gallstones. COMMON BILE DUCT: Measures 4.3 mm. No stones. No dilatation. PANCREAS: Extensive overlying bowel gas completely obscures the pancreas. RIGHT KIDNEY: Measures 9.8 cm in length. Normal size and contour however poor corticomedullary differentiation is appreciated which may indicate intrinsic medical renal disease. No calculus, definitive mass, or hydronephrosis. AORTA: No aneurysmal dilatation. IVC: Unremarkable. OTHER FINDINGS: None . IMPRESSION: Likely hepatic steatosis. No intrahepatic biliary dilatation or gross attic mass appreciable. Normal caliber CBD. Unremarkable gallbladder. Pancreas completely obscured by overlying bowel gas. 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
[2018-04-18] MEDS ORDERED: Iohexol 240 (50 ml) ONE (13:19)
[2018-04-18 14:30] LABS: URINE BILIRUBIN NEGATIVE (NEGATIVE); URINE BLOOD MODERATE (NEGATIVE); URINE GLUCOSE (UA) NEGATIVE (NEGATIVE); URINE LEUKOCYTE ESTERASE SMALL Leu/uL (NEGATIVE); URINE PROTEIN TRACE mg/dL (<30 mg/dL); URINE UROBILINOGEN 0.2 E.U./dL (<1 E.U./dL)
[2018-04-18 15:03] LABS: URINE APPEARANCE CLEAR (CLEAR); URINE COLOR YELLOW (YELLOW)
[2018-04-18 15:04] LABS: URINE AMORPHOUS SEDIMENT FEW; URINE BACTERIA MANY (NEG); URINE RBC 20 - 25 /hpf (0-2)
--- NOTE | 2018-04-18 15:43 | CT ---
Date of service: 04/18/2018 PROCEDURE: CT Abdomen and Pelvis without intravenous contrast HISTORY: pain COMPARISON: 04/15/2018 TECHNIQUE: Without contrast. Contrast dose: Radiation dose: Total exam DLP = 508 mGy-cm. This CT exam was performed using one or more of the following dose reduction techniques: Automated exposure control, adjustment of the mA and/or kV according to patient size, and/or use of iterative reconstruction technique. FINDINGS: LOWER THORAX: Unremarkable. LIVER: Unremarkable. No gross lesion or ductal dilatation. GALLBLADDER AND BILE DUCTS: Unremarkable. PANCREAS: Unremarkable. No gross lesion or ductal dilatation. SPLEEN: Unremarkable. ADRENALS: Unremarkable. No mass. KIDNEYS AND URETERS: Unremarkable. No hydronephrosis. No solid mass. VASCULATURE: Unremarkable. No aortic aneurysm. BOWEL: Unremarkable. No obstruction. No gross mural thickening. APPENDIX: Unremarkable. Normal appendix. PERITONEUM: Unremarkable. No free fluid. No free air. LYMPH NODES: Unremarkable. No enlarged lymph nodes. BLADDER: Right-sided bladder mass. Measuring 3.9 x 2.4 cm. Left-sided bladder diverticulum. REPRODUCTIVE: Unremarkable. BONES: No acute fracture. OTHER FINDINGS: None. IMPRESSION: Right-sided bladder mass. Measuring 3.9 x 2.4 cm. Left-sided bladder diverticulum. No change from several days earlier
[2018-04-18 16:54] VITALS: BP 134/74; PULSE 90; TEMP 98.2; O2SAT 96
[2018-04-18 16:56] VITALS: RESP 20
--- NOTE | 2018-04-19 09:30 | CARD ---
APPROVED REPORT Date of service: 04/18/2018 EKG Measurement Heart [id number] <Conclusion> Electronic ventricular pacemaker: 100 % V. Paced. A. Fib.
== END 2018-04-18 16:55 | disposition home or self-care (01) ==
LOC: ED 10:58
DX: R10.9 Unspecified abdominal pain (principal); I10 Essential (primary) hypertension; I48.91 Unspecified atrial fibrillation; E03.9 Hypothyroidism, unspecified; Z95.0 Presence of cardiac pacemaker
CPT/HCPCS: 74176; 76705; 80053; 81001; 83690; 84484; 85025; 85610; 85730; 87086; 93005; 99284; Q9966

== ENCOUNTER 2018-04-19 04:20 | Inpatient (IN) | payer MEDICARE, OTHER ==
[2018-04-19 04:21] VITALS: PULSE 62; BMI 25.8
--- NOTE | 2018-04-19 04:35 | ED PDOC ---
Arrival/HPI - General Chief Complaint: Chest Pain Time Seen by Provider: 04/19/18 04:23 - History of Present Illness Narrative History of Present Illness (Text): 04/19/18 06:13 87 yr old male w/ hx of afib w/ pacemaker on coumadin + dig, HTN, HLD, bladder mass p/w chest pain. Per son bedside translating chest pain began last night around 11 pm, diffuse, without radiation. Pt was recently seen here for abdominal pain, but today patient denies any abdominal pain. No orthopnea, PND, leg swelling or WYNNE. No wheezes. No cough, fever, chills or night sweats. Pt notes that that main resolved upon arrival to ER. He denies taking any medications for the pain. No other complaints. Past Medical History - Provider Review Nursing Documentation Reviewed: Yes - Travel History Have you recently traveled outside [place] w/in the past 3 mons?: No - Infectious Disease Hx of Infectious Diseases: None - Tetanus Immunization Tetanus Immunization: Unknown - Cardiac Hx Cardiac Disorders: Yes Hx Atrial Fibrillation: Yes Hx Hypertension: Yes Hx Pacemaker: Yes - Pulmonary Hx Respiratory Disorders: No - Neurological Hx Neurological Disorder: No Hx Paralysis: No - HEENT Hx HEENT Disorder: No - Renal Hx Renal Disorder: No - Endocrine/Metabolic Hx Endocrine Disorders: Yes Hx Hypothyroidism: Yes - Hematological/Oncological Hx Blood Disorders: No Hx Blood Transfusions: No Hx Blood Transfusion Reaction: (NA) - Integumentary Hx Dermatological Disorder: No - Musculoskeletal/Rheumatological Hx Musculoskeletal Disorders: Yes - Gastrointestinal Hx Gastrointestinal Disorders: No - Genitourinary/Gynecological Hx Genitourinary Disorders: Yes Hx Hematuria: Yes - Psychiatric Hx Psychophysiologic Disorder: No Hx Emotional Abuse: No Hx Physical Abuse: No Hx Substance Use: No - Past Surgical History Past Surgical History: No Previous - Anesthesia Hx Anesthesia: Yes Hx Anesthesia Reactions: Yes (bradycardia, asystole) Hx Malignant Hyperthermia: No - Suicidal Assessment Feels Threatened In Home Enviroment: No Family/Social History - Physician Review Nursing Documentation Reviewed: Yes Family/Social History: Unknown Family HX Smoking Status: Never Smoked Hx Alcohol Use: Yes (occasional glass of wine) Hx Substance Use: No Hx Substance Use Treatment: No Allergies/Home Meds Allergies/Adverse Reactions: Allergies No Known Allergies Allergy (Verified 03/14/18 11:46) Home Medications: Home Meds Medication Instructions Recorded Confirmed Warfarin [Coumadin] 3 mg PO QPM 01/18/15 04/19/18 Levothyroxine [Synthroid] 25 mcg PO DAILY 01/01/16 04/19/18 Amlodipine Besylate [Norvasc] 10 mg PO DAILY 04/01/16 04/19/18 Digoxin [Digitek] 1 tab PO DAILY 04/01/16 04/19/18 Isosorbide Mononitrate [Isosorbide 1 tab PO DAILY 04/01/16 04/19/18 Mononitrate ER] Lisinopril 20 mg PO DAILY 04/01/16 04/19/18 Metoprolol Tartrate [Lopressor] 25 mg PO BID 04/01/16 04/19/18 Allopurinol [Zyloprim] 100 mg PO DAILY 04/19/18 04/19/18 Tamsulosin [Flomax] 0.4 mg PO DAILY 04/19/18 04/19/18 Review of Systems - Review of Systems Constitutional: Normal Eyes: Normal ENT: Normal Respiratory: Normal Cardiovascular: Chest Pain. absent: Palpitations, Edema, Calf Pain, WYNNE, Orthopnea, Syncope Gastrointestinal: Normal Genitourinary Male: Normal Musculoskeletal: Normal Skin: Normal Neurological: Normal Endocrine: Normal Hemo/Lymphatic: Normal Psychiatric: Normal Physical Exam Vital Signs Temp Pulse Resp BP Pulse Ox 04/19/18 04:29 97.5 F L 65 18 145/76 99 - Systems Exam Head: Present: Atraumatic, Normocephalic Pupils: Present: PERRL Extroacular Muscles: Present: EOMI Conjunctiva: Present: Normal Mouth: Present: Moist Mucous Membranes Neck: Present: Normal Range of Motion Respiratory/Chest: Present: Clear to Auscultation, Good Air Exchange. No: Respiratory Distress, Accessory Muscle Use Cardiovascular: Present: Regular Rate and Rhythm, Normal S1, S2, Peripheal Pulses Present. No: Murmurs, Irregular Rhythm, Tachycardic, Bradycardic, Rub, Gallop Abdomen: No: Tenderness, Distention, Peritoneal Signs Back: Present: Normal Inspection Upper Extremity: Present: Normal Inspection. No: Cyanosis, Edema Lower Extremity: Present: Normal Inspection. No: Edema Neurological: Present: GCS=15, CN II-XII Intact, Speech Normal Skin: Present: Warm, Dry, Normal Color. No: Rashes Psychiatric: Present: Alert, Oriented x 3, Normal Insight, Normal Concentration Medical Decision Making ED Course and Treatment: 04/19/18 04:33 87 yr old male w/ hx of afib on coumadin + dig, pacemaker, HTN, HLD p/w CP which has since resolved. Given age, RF and EKG, high heart score pending trop, will likely require further work up w/ cards. EKG: Ordered, reviewed, and independently interpreted the EKG. Rate : 65 BPM Rhythm : V-paced Interpretation : No STEMI appreciated. Comparison : Unchanged from previous EKG performed on 04/18/18 at 11:10 am. 04/19/18 06:17 xray reviewed, unremarkable remains pain free. dig and inr added 04/19/18 06:19 trop, unremarkable. BNP elevated, seen previously. Page sent to Dr. Griggs 04/19/18 06:27 appreciate consult w/ Dr. Griggs: we are to place pt in obs, give lasix and place consult for Dr. Booker (cards) - Lab Interpretations Lab Results: 04/19/18 04:16 04/19/18 04:16 Lab Results 04/19/18 04:40: pO2 31, VBG pH 7.37, VBG pCO2 46.0, VBG HCO3 26.6, VBG Total CO2 28.0, VBG O2 Sat (Calc) 56.0, VBG Base Excess 0.8, VBG Potassium 4.8, Glucose 114 H, Lactate 1.3, FiO2 21.0, Sodium 139.0, Chloride 107.0, Venous Blood Potassium 4.8 04/19/18 04:16: Sodium 142, Potassium 4.9, Chloride 107, Carbon Dioxide 24, Anion Gap 16, BUN 27 H, Creatinine 1.6 H, Est GFR ( Amer) 50, Est GFR ( Non-Af Amer) 41, Random Glucose 113 H, Calcium 8.8, Magnesium 2.1, Total Bilirubin 1.0, AST 66 H D, ALT 57 H, Alkaline Phosphatase 92, Troponin I 0.07, NT-Pro-B Natriuret Pep 3440 H, Total Protein 8.2, Albumin 3.9, Globulin 4.3, Albumin/Globulin Ratio 0.9 L, Lipase 55 04/19/18 04:16: WBC 9.4 D, RBC 3.80, Hgb 12.7 L, Hct 37.7 L, MCV 99.2, MCH 33.4 , MCHC 33.7, RDW 15.3 H, Plt Count 259, MPV 10.7, Gran % 61.3, Lymph % (Auto) 26.7, [place] % (Auto) 9.5 H, Eos % (Auto) 2.2, Baso % (Auto) 0.3, Gran # 5.77, Lymph # (Auto) 2.5, [place] # (Auto) 0.9 H, Eos # (Auto) 0.2, Baso # (Auto) 0.03 - RAD Interpretation Radiology Orders: 04/19/18 04:39 CHEST TWO VIEWS (PA/LAT) [RAD] Stat Disposition/Present on Arrival - Present on Arrival Any Indicators Present on Arrival: No History of DVT/PE: No History of Uncontrolled Diabetes: No Urinary Catheter: No History of Decub. Ulcer: No History Surgical Site Infection Following: None - Disposition Have Diagnosis and Disposition been Completed?: Yes Diagnosis: Chest pain Disposition: HOSPITALIZED Disposition Time: 06:20 Condition: GOOD Discharge Instructions (ExitCare): Chest Pain (ED) Forms: Equivalent DATA (Khmer)
[2018-04-19 05:00] LABS: BASO # 0.03 K/mm3 (0.0-2.0); BASO % 0.3 % (0.0-3.0); EOS # 0.2 (0.0-0.7); EOS % 2.2 % (1.5-5.0); GRAN # 5.77 (1.4-6.5); GRAN % 61.3 % (50.0-68.0); HEMOGLOBIN 12.7 g/dL (14.0-18.0); LYMPH # 2.5 (1.2-3.4); LYMPH % 26.7 % (22.0-35.0); MEAN CELL VOLUME 99.2 fl (80.0-105.0); MEAN CORPUSCULAR HEMOGLOBIN 33.4 pg (25.0-35.0); MEAN CORPUSCULAR HGB CONC 33.7 g/dl (31.0-37.0); MEAN PLATELET VOLUME 10.7 fl (7.0-11.0); MONO # 0.9 (0.1-0.6); MONO % 9.5 % (1.0-6.0); RBC 3.8 10^6/uL (3.5-6.1); RED CELL DISTRIBUTION WIDTH 15.3 % (11.5-14.5); WHITE BLOOD COUNT 9.4 10^3/ul (4.5-11.0)
[2018-04-19 05:04] LABS: VENOUS BLOOD GAS BASE EXCESS 0.8 mmol/L (0.0-2.0); VENOUS BLOOD GAS PO2 31 mm/Hg (30-55); VENOUS BLOOD PH 7.37 (7.32-7.43)
[2018-04-19 06:06] LABS: ALB/GLOB RATIO 0.9 (1.1-1.8); ALBUMIN 3.9 g/dL (3.0-4.8); CALCIUM 8.8 mg/dL (8.4-10.5)
[2018-04-19 06:14] LABS: TROPONIN I 0.07 ng/mL
[2018-04-19 06:56] LABS: INR 1.33; PROTHROMBIN TIME 15.4 SECONDS (9.4-12.5)
--- NOTE | 2018-04-19 09:11 | RAD ---
Date of service: 04/19/2018 HISTORY: cp COMPARISON: 03/21/2018 TECHNIQUE: Chest PA and lateral FINDINGS: LUNGS: No active pulmonary disease. PLEURA: No significant pleural effusion identified. No pneumothorax apparent. CARDIOVASCULAR: Mild vascular congestion OSSEOUS STRUCTURES: No significant abnormalities. VISUALIZED UPPER ABDOMEN: Normal. OTHER FINDINGS: Pacemaker IMPRESSION: Mild vascular congestion
--- NOTE | 2018-04-19 09:55 | CARD ---
APPROVED REPORT Date of service: 04/19/2018 EKG Measurement Heart [id number] <Conclusion> Electronic ventricular pacemaker: 100% V. Paced. A. Fib. No change
[2018-04-19] MEDS ORDERED: Digoxin 125 mcg (0.125 mg) Tab PO SCH (10:00)
[2018-04-19] MEDS: Levothyroxine 50 MCG TAB PO SCH (11:02)
--- NOTE | 2018-04-19 11:51 | CARD ---
APPROVED REPORT Date of service: 04/19/2018 EKG Measurement Heart [id number] <Conclusion> Electronic ventricular pacemaker
--- NOTE | 2018-04-19 12:35 | CON ---
Copied To: Maury Booker MD Attending MD: Maury Booker MD DATE: 04/19/2018 CARDIOLOGY CONSULTATION HISTORY: The patient is an 88-year-old male, who presents with a transient episode of chest pain. The patient has documented coronary artery disease according to the patient in the past. He also has had a pacemaker placed. The patient is currently on beta-blockers, lisinopril for hypertension, isosorbide for angina as well as digoxin and Coumadin. The patient denies shortness of breath at this time. SOCIAL HISTORY: The patient does not smoke now. REVIEW OF SYSTEMS: Is reliable as necessary. PHYSICAL EXAMINATION: VITAL SIGNS: Blood pressure varies from 117-139 with a heart rate in the 60s. NECK: Negative JVD. LUNGS: Without rales. HEART: Reveals S1, S2. EXTREMITIES: Without edema. EKG shows paced rhythm. LABORATORY DATA: BUN and creatinine are 27 and 1.6 with a GFR of 40. The glucose is 113. Troponins are 0.06 and 0.07. IMPRESSION: 1. Transient chest pain. 2. Mild congestive heart failure. 3. History of pacemaker placement. 4. Possible atrial fibrillation in the past. 5. Renal insufficiency. PLAN: Given these findings, the patient has an indeterminate troponin levels. Given his multiple comorbidities, we would like to continue treatment medically. We will increase his beta-blockers to 50 b.i.d. We will discontinue his digoxin. We would like to continue treating his chest pain and coronary artery disease medically given his risk of catheterization for contrast nephropathy. Maury Booker MD
--- NOTE | 2018-04-19 13:39 | HP ---
Copied To: Dieter Griggs DO Attending MD: Dieter Griggs DO HISTORY OF PRESENT ILLNESS: I have known Ricardo for many years, I do house calls on him. He was in the hospital yesterday with chest pain, CHF picture and all the tests were normal. I sent him home. He felt better when he left the ER. He came back again today with similar picture. He is an 87-year-old white male who presents with chest pain. He has a past medical history of AFib with pacemaker, on Coumadin due to hypertension, high cholesterol, he has got a bladder mass. He has got hematuria, now it has calmed down. He had a [place] catheter and the urologist does not want the catheter anymore. He is here for abdominal pain and chest pain, dyspnea on exertion, I got to see him in the Emergency Room. He started to improve. We gave him Lasix 20 mg IV one time, I will increase it to 40. 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 He has got arthritis pains. He had hematuria, the catheter is out. He had asystole, bradycardia once in the past. He did well. FAMILY HISTORY: There was hypertension and diabetes in the family. SOCIAL HISTORY: Never smoked. Occasional glass of wine. No substance abuse. ALLERGIES: NO KNOWN DRUG ALLERGIES. MEDICATIONS: On Coumadin 3 mg, Synthroid, Norvasc, Digitek, Imdur, Lopressor, lisinopril, Levaquin and Flomax. Resting in bed. He is having no acute vision or hearing changes. No sore throat. He is having chest pain. No palpitations at this time. No dyspnea on exertion. No calf pain. He is short of breath, but no cough. No nausea, vomiting, constipation, diarrhea. No problems urinating. No back pains. Skin is intact that he knows of. He is alert and oriented x3. No anxiety or depression. PHYSICAL EXAMINATION: VITAL SIGNS: He has a 97.5 temperature, 65 pulse, 18 respiratory rate, 145/76 blood pressure, 99% O2 sat. HEENT: Head is atraumatic, normocephalic. Extraocular muscles are intact. Pupils equal, reactive to light. Throat is moist. NECK: Supple. HEART: Regular rate. Normal S1, S2. LUNGS: Clear to auscultation bilaterally. Fair effort. No wheezes, no rhonchi, no rales. ABDOMEN: Soft, nontender. Positive bowel sounds. No guarding, no rebound, no CVA tenderness. EXTREMITIES: Have trace edema in the feet, otherwise not bad. NEUROLOGIC: GCS is 15. Cranial nerves II-XII grossly intact. Speech is normal. SKIN: Warm and dry. No apparent rashes, ulcers or cuts. LYMPH NODES: His thyroid is midline. No palpable appreciable lymphadenopathy. Alert and oriented x3, calm. He understands we are going to keep him overnight in observation and watch him. DATA: He has a 9.4 white count, 12.7 hemoglobin, 37.7 hematocrit, 269 platelets. He has 7.37 ABGs. Glucose is 114. He has a sodium of 142, potassium 4.9, chloride 107, CO2 is 24, anion gap is 16, BUN is 27, creatinine is 1.6, GFR is 50, sugar is 113, magnesium 2.1, calcium 8.8, total bili is 1, AST is 66, ALT is 57, alkaline phosphatase 92. Troponin I is 0.07, indeterminate. BNP is very high at 3440, it went up from the other day so he has got a little bit of CHF. I believe the chest x-ray showed mild vascular congestion. He will be on IV Lasix for the Cardiology consult, will be put back on his medications, will check his INR tomorrow. We will do troponins x3 more. He is here for a chest pain, CHF picture and observation. Dieter Griggs DO [facility]
[2018-04-20 07:27] LABS: HEMOGLOBIN 11.7 g/dL (14.0-18.0); MEAN CELL VOLUME 99.7 fl (80.0-105.0); MEAN CORPUSCULAR HEMOGLOBIN 32.9 pg (25.0-35.0); RBC 3.56 10^6/uL (3.5-6.1); RED CELL DISTRIBUTION WIDTH 15.4 % (11.5-14.5); WHITE BLOOD COUNT 9.6 10^3/ul (4.5-11.0)
[2018-04-20 07:32] LABS: INR 1.44; PROTHROMBIN TIME 16.7 SECONDS (9.4-12.5)
[2018-04-20 07:55] LABS: ALB/GLOB RATIO 0.9 (1.1-1.8); ALBUMIN 3.1 g/dL (3.0-4.8)
[2018-04-20] MEDS: Levothyroxine 50 MCG TAB PO SCH (11:47)
--- NOTE | 2018-04-20 12:33 | PN ---
Copied To: Cabrera Jara MD Attending MD: Cabrera Jara MD DATE: 04/20/[address] Maury Booker. SUBJECTIVE: The patient did report chest pain to the nurse this morning and at this time, he is chest pain free. OBJECTIVE: VITAL SIGNS: Blood pressure 85/41, heart rate 60, temperature 98.4, respirations 18. HEENT: Normocephalic. CHEST: Minimal basilar rhonchi. HEART: S1, S2 regular. ABDOMEN: Soft. EXTREMITIES: Trace edema. DATA: Echocardiogram study done in 02/2018 revealed normal left ventricular size with moderate concentric LVH and normal ejection fraction, moderate aortic insufficiency and moderate pulmonary hypertension. LABORATORY DATA: The SMA-7 is within normal limits except for a BUN and creatinine of 39 and 2.4. Three sets of troponins are not in the elevated range. Today's hemoglobin and hematocrit are 11.7 and 35.5. White count and platelet count are within normal limits. ASSESSMENT: 1. Chest pain. 2. Clinically mild congestive heart failure. 3. History of pacemaker placement. 4. Renal insufficiency. 5. Moderate pulmonary hypertension. 6. Moderate aortic insufficiency. 7. Atrial fibrillation. RECOMMENDATIONS: Continue current Coumadin 3 mg once a day. Today's INR is 1.44 and therapeutic INR between 2.2 and 2.5 is justified. Continue Zyloprim 100 mg once a day. Hold Lasix, Lopressor, Norvasc and Zestril for now because of borderline hypotension. I will obtain venous Doppler of lower extremities. Cabrera Jara MD
--- NOTE | 2018-04-20 14:22 | PN ---
Copied To: Dieter Griggs DO Attending MD: Dieter Griggs DO DATE: 04/20/2018 SUBJECTIVE: He is resting comfortably in bed. He had very low blood pressure this morning, also a chest pressure this morning, seen with the son. He was on observation, I have to make him an inpatient. Cardiology has held his medications for his blood pressure. He is uncomfortable with chest pressure, shortness of breath. He is on oxygen now. PHYSICAL EXAMINATION: VITAL SIGNS: He has a 98 temp; 70 pulse; 88/51, which is better than the 85/41 blood pressure; 18 respiratory rate. HEENT: His head is atraumatic, normocephalic. Throat is moist. NECK: Supple. HEART: Regular rate. LUNGS: Decreased breath sounds. Poor inspiration. ABDOMEN: Soft. EXTREMITIES: Trace edema. MEDICATIONS: He is currently on Coumadin, Flomax, Imdur, Lasix, Lopressor, Norvasc, Synthroid, Tylenol, Zestril and Zyloprim. LABORATORY DATA: He has a white count of 9.6, hemoglobin 11.7, hematocrit 35.5, platelets of 252. INR is up to 1.44. Sodium 141, potassium 4., BUN 39, creatinine 2.4, getting a little bit worse. I will call in Renal, renal insufficiency. He has a sugar of 95, calcium is 8, total bili is 0.8, AST is 41, ALT is 53, alk phos 78. The troponins are 0.07, 0.07 and 0.06. Total protein 6.7, TSH is 5.84. He is on Synthroid. We are going to hold the blood pressure medications today and we are going to see how he does. I made him an inpatient stay as I do not think we are going to get him out in 24 hours, seems it will take longer than that to adjust his medication and get his blood pressure up. We will continue with aggressive treatment and care on Ricardo Sr who has very low blood pressure, congestive heart failure picture, shortness of breath. Dieter Griggs DO [facility] # [id number] MTDD
[2018-04-21] MEDS ORDERED: Nitroglycerin 0.4 mg/hr Top Patch TD ONE (01:09)
[2018-04-21] MEDS ORDERED: Nitroglycerin 2% Ointment Foilpak UD TOP STA (01:11)
[2018-04-21] MEDS ORDERED: Morphine 2 mg/ml ISec IVP ONE (03:16)
[2018-04-21 07:16] LABS: INR 1.48; PROTHROMBIN TIME 17.1 SECONDS (9.4-12.5)
[2018-04-21 07:24] LABS: HEMOGLOBIN 11.5 g/dL (14.0-18.0); MEAN CORPUSCULAR HEMOGLOBIN 33.3 pg (25.0-35.0); MEAN PLATELET VOLUME 11.3 fl (7.0-11.0); RBC 3.45 10^6/uL (3.5-6.1); RED CELL DISTRIBUTION WIDTH 15.3 % (11.5-14.5); WHITE BLOOD COUNT 8.9 10^3/ul (4.5-11.0)
[2018-04-21 07:25] LABS: ALB/GLOB RATIO 0.9 (1.1-1.8); ALBUMIN 3.1 g/dL (3.0-4.8); CALCIUM 8.5 mg/dL (8.4-10.5)
[2018-04-21 07:31] LABS: TROPONIN I 0.05 ng/mL
[2018-04-21] MEDS: Levothyroxine 50 MCG TAB PO SCH (10:49)
--- NOTE | 2018-04-21 13:57 | PN ---
Copied To: Dieter Griggs DO Attending MD: Dieter Griggs DO DATE: 04/21/2018 SUBJECTIVE: I saw him resting comfortably in bed. He ate his breakfast. He is still tired and weak. He occasionally gets a cough. He is on warfarin, Flomax, Imdur, Lasix, Lopressor is on hold. He has Synthroid, Tylenol, Zestril, and Zyloprim. He has stopped some of his blood pressure medications. His blood pressure is doing a little bit better. He does not feel as weak. PHYSICAL EXAMINATION: VITAL SIGNS: He has a 97.8 temperature, 60 pulse, 105/45 blood pressure, 18 respiratory rate, 100% 02 sat on nasal cannula. HEENT: His head is atraumatic, normocephalic. Throat is moist. NECK: Supple. HEART: Regular rate. LUNGS: Decreased breath sounds. ABDOMEN: Soft. EXTREMITIES: No edema. LABORATORY DATA: He has a white count of 8.9, hemoglobin 11.5, hematocrit 33.8, and platelets 251. INR is up to 1.48. He is on Coumadin, watching his INR. Sodium 140, potassium 4.2. BUN 42, creatinine 1.9, little bit better. Sugar is 101. Calcium is 8.5. Total bili is 0.7, AST is 44, ALT is 53, alk phos is 80. Troponin's were 0.07, 0.06, 0.04, 0.05 with a total protein of 6.6. ASSESSMENT AND PLAN: He is being seen by Cardiology. When they give me the okay to discharge him home, I will discharge him home. He has some low blood pressures and they are adjusting his medication. Waiting for venous Dopplers to come back. He had his physical therapy ordered and out of bed to chair. I encouraged him to eat and we will check his labs tomorrow. If I can discharge him, I will try. It is up to Cardiology. They still want to watch him. Ricardo Sr has very low blood pressure, congestive heart failure, acute coronary syndrome, and renal insufficiency. Dieter Griggs DO [facility] # [id number] MTDD
--- NOTE | 2018-04-21 16:39 | PN ---
Copied To: Cabrera Jara MD Attending MD: Cabrera Jara MD DATE: 04/21/2018 SUBJECTIVE: The patient complains of chest pain on and off. He denies any leg pain. PHYSICAL EXAMINATION: VITAL SIGNS: Blood pressure 94/60, heart rate 60, temperature 97.8, respirations 18. HEENT: Normocephalic. CHEST: Clear. HEART: S1 and S2 regular. EXTREMITIES: No edema. LABORATORY DATA: Hemoglobin and hematocrit 11.5 and 33.8, white count and platelet count are within normal limit. Today's SMA-7 is within normal limits except for BUN and creatinine of 42 and 1.9 respectively. Venous Doppler of lower extremity was performed yesterday; however, the report is still pending. Today's EKG revealed a ventricular pacemaker rhythm, underlying rhythm is AFib. ASSESSMENT: 1. Recurring chest pain. 2. Mild congestive heart failure clinically. 3. Chronic atrial fibrillation. 4. History of ventricular pacemaker placement. 5. Moderate pulmonary retention. 6. Moderate aortic insufficiency. 8. Mild anemia. RECOMMENDATIONS: I will administer Coumadin 5 mg orally today. The patient's INR today is 1.48. Continue Synthroid 50 mcg p.o. daily, Lopressor, Zestril, Imdur on hold because of the patient's borderline hypotension. Venous Doppler of lower extremity was done; however, the report is still pending. In the meantime, I will start subcutaneous heparin 5000 units every 8 hours. Cabrera Jara MD
[2018-04-22] MEDS ORDERED: Alum-Mag Hydrox-Simethicone Susp (30 mL) PO ONE (04:07)
--- NOTE | 2018-04-22 05:32 | CARD ---
APPROVED REPORT Date of service: 04/21/2018 EKG Measurement Heart [id number] <Conclusion> Electronic ventricular pacemaker
--- NOTE | 2018-04-22 05:57 | CP.PCM.PN ---
Subjective - Date & Time of Evaluation Date of Evaluation: 04/22/18 Time of Evaluation: 04:00 - Subjective Subjective: PGY-[address] Serrano 87 yo [place]yr[place]z speaking M with PMH Afib on coumadin, pacemaker, aortic insufficiency, and CKD admitted for recurrent chest pain. Per cardiology, his trops of 0.07 is likely from CKD. Sergey, PCP, translated. He complained to RN about 10/10 chest pain on mid-sternal pain that woke him up from sleep. The pain was in mid chest, does not radiate, and it was "inside" not superficial pain. When asked about possible acid reflux problem, pt refused to answer. After morphine, ultram, and maloox, his chest pain improves. He had a similar episode the previous night with trops 0.05 and no change in EKG. ROS-denies diziness, sob, n/v, radiation of pain VS - stable Gen - sleeping, easily awaken HEENT - EOMI Card-regular s1 s2 pulm- cta b/l no w/r/r abd - soft ntnd ext - no edema A/P: recurrent chest pain r/o ACS Questionable atypical chest pain pending confirmation from cardiology - AM trops and EKG - cardiology on board - pain med prn s/r/d/w Dr Serrano Objective - Vital Signs/Intake and Output Vital Signs (last 24 hours): Temp Pulse Resp BP Pulse Ox 97.8 F 64 20 120/54 L 98 04/21/18 23:29 04/22/18 05:36 04/21/18 23:29 04/21/18 23:29 04/21/18 23:29 Intake and Output: 04/21/18 04/22/18 18:59 06:59 Intake Total 990 Output Total 550 Balance 440 - Medications Medications: Current Medications Acetaminophen (Tylenol 325mg Tab) 650 mg PO Q4H PRN PRN Reason: Pain, Mild (1-3) Last Admin: 04/22/18 01:19 Dose: 650 mg Allopurinol (Zyloprim) 100 mg PO DAILY [facility] Last Admin: 04/21/18 10:49 Dose: 100 mg Furosemide (Lasix) 40 mg IVP DAILY [facility] Last Admin: 04/21/18 10:50 Dose: Not Given Heparin Sodium (Porcine) (Heparin) 5,000 units SC Q8 [facility] PRN Reason: Protocol Last Admin: 04/22/18 05:18 Dose: 5,000 units Isosorbide Mononitrate (Imdur) 60 mg PO DAILY [facility] Last Admin: 04/21/18 10:50 Dose: Not Given Levothyroxine Sodium (Synthroid) 50 mcg PO DAILY [facility] Last Admin: 04/21/18 10:49 Dose: 50 mcg Lisinopril (Zestril) 20 mg PO DAILY [facility] Last Admin: 04/21/18 10:49 Dose: Not Given Metoprolol Tartrate (Lopressor) 50 mg PO BID [facility] Last Admin: 04/21/18 17:49 Dose: Not Given Tamsulosin HCl (Flomax) 0.4 mg PO DAILY [facility] Last Admin: 04/21/18 10:49 Dose: 0.4 mg Warfarin Sodium (Coumadin) 5 mg PO 1800 [facility] PRN Reason: Protocol Last Admin: 04/21/18 17:48 Dose: 5 mg - Labs Labs: 04/21/18 06:30 04/21/18 06:30 PT 17.1 SECONDS (9.4-12.5) H 04/21/18 06:30 INR 1.48 04/21/18 06:30
[2018-04-22 06:58] LABS: INR 1.49; PARTIAL THROMBOPLASTIN TIME 33.2 Seconds (25.1-36.5); PROTHROMBIN TIME 17.3 SECONDS (9.4-12.5)
[2018-04-22 07:02] LABS: HEMOGLOBIN 11.4 g/dL (14.0-18.0); MEAN CELL VOLUME 99.4 fl (80.0-105.0); MEAN CORPUSCULAR HEMOGLOBIN 32.8 pg (25.0-35.0); MEAN CORPUSCULAR HGB CONC 32.9 g/dl (31.0-37.0); MEAN PLATELET VOLUME 10.8 fl (7.0-11.0); RBC 3.48 10^6/uL (3.5-6.1); RED CELL DISTRIBUTION WIDTH 15.4 % (11.5-14.5); WHITE BLOOD COUNT 7.7 10^3/ul (4.5-11.0)
[2018-04-22 07:32] LABS: ALB/GLOB RATIO 0.9 (1.1-1.8); ALBUMIN 3.2 g/dL (3.0-4.8); CALCIUM 8.5 mg/dL (8.4-10.5)
[2018-04-22 08:28] LABS: TROPONIN I 0.04 ng/mL
[2018-04-22] MEDS: Levothyroxine 50 MCG TAB PO SCH (09:57)
--- NOTE | 2018-04-22 11:52 | PN ---
Copied To: Dieter Griggs DO Attending MD: Dieter Griggs DO DATE: 04/22/2018 SUBJECTIVE: I saw him resting comfortably in bed this morning. He did have chest pain earlier this morning and his INR is low. I increased his Coumadin to 10 mg. I put him on Pepcid 20 p.o. b.i.d., Zyloprim, Zestril, Ultram, Tylenol, Synthroid, nitroglycerin, morphine, metoprolol, Lasix IV, heparin. PHYSICAL EXAMINATION: VITAL SIGNS: He has got 97.9 temperature, 76 pulse, 118/60 blood pressure, 18 respiratory rate, 98% 02 sat on nasal cannula. HEENT: Head is atraumatic, normocephalic. HEART: Regular rate. LUNGS: Clear to auscultation. ABDOMEN: Soft. EXTREMITIES: No edema. Have Physical Therapy walk him. LABORATORY DATA: He has 7.7 white count, 11.4 hemoglobin, 34.6 hematocrit with 241 platelets. His INR is only 1.49. I put him on 10 mg of Coumadin. He has 144 sodium, potassium is 4.1, BUN 42, creatinine 1.8, GFR is 36, calcium is 8.5, sugar is 107, total bili is 0.68, AST is 48, ALT is 48, alk phos is 81, troponin is 0.04, which is good. Total protein is 6.8. He had Pepcid. I increased his Coumadin to 10. We will check his labs tomorrow and Physical Therapy to walk him. I want him out of bed. Hopefully, get discharge him tomorrow if the INR is up and PT says okay and Cardiology wants his INR above 2. He is on heparin. Dieter Griggs DO
--- NOTE | 2018-04-22 14:17 | PN ---
Copied To: Cabrera Jara MD Attending MD: Cabrera Jara MD DATE: 04/22/2018 SUBJECTIVE: The patient complains of recurrent chest pain. The patient is unable to describe the character of his chest pain except that it gets severe. The patient denies any shortness of breath. PHYSICAL EXAMINATION: VITAL SIGNS: Blood pressure 118/60, heart rate 76, temperature 97.9, respiration 18. HEENT: Normocephalic. CHEST: Clear. HEART: S1, S2 regular. EXTREMITIES: No edema. LABORATORY DATA: Hemoglobin and hematocrit 11.4 and 34.6. White count and platelet count are within normal limit. Today's BUN and creatinine are 42 and 1.8 respectively. Rest of the SMA-7 is within normal limit. Today's troponin is 0.04. EKG revealed ventricular paced rhythm, underlying rhythm is atrial fibrillation. ASSESSMENT: 1. Recurring chest pain. 2. Chronic renal insufficiency. 3. Chronic atrial fibrillation. 4. Moderate pulmonary hypertension. 5. Moderate aortic insufficiency. RECOMMENDATIONS: Continue current Lasix 40 mg intravenously daily, Imdur 60 mg daily, Synthroid 50 mcg once a day, Zestril 20 mg once a day. The patient will receive Coumadin 10 mg a day. His INR today is 1.49. We will also request a ventilation perfusion scan. Cabrera Jara MD
--- NOTE | 2018-04-22 17:28 | US ---
HISTORY: Leg pain and swelling. Evaluate for DVT PHYSICIAN(S): Maury Tomlinson MD. TECHNIQUE: Duplex sonography and color-flow Doppler with graded compression were used to evaluate the deep venous systems of both lower extremities. FINDINGS: The visualized deep venous systems of both lower extremities are sonographically normal and compressible. Normal wave forms and augmentation are seen. There is no sonographic evidence for deep venous thrombosis in the visualized segments of both lower extremities. IMPRESSION: No sonographic evidence for deep venous thrombosis in the visualized segments of both lower extremities.
--- NOTE | 2018-04-22 22:04 | CARD ---
APPROVED REPORT Date of service: 04/22/2018 EKG Measurement Heart [id number] <Conclusion> Electronic ventricular pacemaker Underlying rhythm is A Fib.
[2018-04-23 06:54] LABS: HEMOGLOBIN 11.2 g/dL (14.0-18.0); MEAN CELL VOLUME 99.4 fl (80.0-105.0); MEAN CORPUSCULAR HEMOGLOBIN 33.5 pg (25.0-35.0); MEAN CORPUSCULAR HGB CONC 33.7 g/dl (31.0-37.0); MEAN PLATELET VOLUME 11.2 fl (7.0-11.0); RBC 3.34 10^6/uL (3.5-6.1); RED CELL DISTRIBUTION WIDTH 15.4 % (11.5-14.5); WHITE BLOOD COUNT 8.3 10^3/ul (4.5-11.0)
[2018-04-23 06:55] LABS: INR 1.78; PROTHROMBIN TIME 20.7 SECONDS (9.4-12.5)
[2018-04-23 07:36] LABS: ALBUMIN 3.3 g/dL (3.0-4.8); CALCIUM 8.8 mg/dL (8.4-10.5)
[2018-04-23 09:01] VITALS: O2SAT 97
[2018-04-23] MEDS: Levothyroxine 50 MCG TAB PO SCH (10:01)
[2018-04-23 11:46] VITALS: BP 116/60; RESP 18; TEMP 98.7
[2018-04-23 14:15] VITALS: PULSE 65
--- NOTE | 2018-04-23 14:21 | NM ---
Date of service: 04/23/2018 COMPARISON: Not available TECHNIQUE: 30.2 mCi technetium 99-m DTPA aerosol. 5.0 mCI technetium 99-m MAA administered intravenously. FINDINGS: VENTILATION COMPONENT: Limited study. Extensive central tracheobronchial deposition. No gross ventilation defect. PERFUSION COMPONENT: No perfusion defect appreciated. IMPRESSION: Lowprobability ventilation perfusion scan for pulmonary embolism.
--- NOTE | 2018-04-23 15:49 | PN ---
Copied To: Maury Booker MD Attending MD: Maury Booker MD DATE: 04/23/2018 CARDIOLOGY FOLLOWUP SUBJECTIVE: The patient is chest pain free. PHYSICAL EXAMINATION: VITAL SIGNS: Blood pressure is 116/60, the heart rate is in the 60s. NECK: Negative JVD. LUNGS: Without rales. HEART: Reveals S1, S2. EXTREMITIES: Without edema. LABORATORY DATA: Hemoglobin is 11.2. Chemistries: BUN and creatinine are unremarkable. Troponin is 0.04 with the creatinine is 1.8. Hemoglobin is 11.2. IMPRESSION: 1. Recurrent chest pain. 2. No evidence for acute coronary syndrome. 3. Renal insufficiency. 4. History of pacemaker placement. 5. Chronic atrial fibrillation. 6. Moderate pulmonary hypertension. PLAN: Given these findings, the patient is scheduled for discharge today. I have discussed this with the patient's son. The patient is arranged for an outpatient Lexiscan. Maury Booker MD
--- NOTE | 2018-04-24 00:48 | DS ---
Copied To: Dieetr Griggs DO Attending MD: Dieter Griggs DO HISTORY OF PRESENT ILLNESS: He is doing quite well this morning. He is alert, he is talking, he is eating. He is alert and oriented x3. He is on Zyloprim, Zestril, Ultram as needed, Tylenol, Synthroid, Pepcid, he will continue on that. He will have metoprolol, Lasix was changed to p.o., Imdur, Flomax, and Coumadin 10 mg a day, but will 5 mg daily. PHYSICAL EXAMINATION: VITAL SIGNS: He has a 98.5 temp, 69 pulse, 102/61 blood pressure, 20 respiratory rate, 97% O2 sat on room air. HEENT: His head is atraumatic, normocephalic. Extraocular muscles are intact. HEART: Regular rate. LUNGS: Clear to auscultation. ABDOMEN: Soft, nontender, positive bowel sounds. EXTREMITIES: No edema. He is able to ambulate well. LABORATORY DATA: He has a white count of 8.3, hemoglobin 11.2, hematocrit 33.2, platelets of 264, INR is up to 1.78 after 10 mg of Coumadin last night, we will give another 10 today before he goes to home. We will check his INR tomorrow. He will be on 5 mg after that. Sodium is 144, potassium 4.5, BUN 47, creatinine 1.8, he is to drink little more water, sugar is 98, calcium is 8.8, total bili is 0.5, AST is 39, ALT is 52, alk phos 78. He is going to have a blood test, CBC, chemistry and an INR in the next 24 to 48 hours. Total protein is 6.7. ASSESSMENT AND PLAN: He has had recurrent chest pain with negative troponins, chronic renal insufficiency, chronic atrial fibrillation, getting his INR to correct level, pulmonary hypertension, moderate aortic insufficiency, probably some reflux. We will continue with aggressive treatment and care. I will discharge him today and we will follow up in the outpatient. We will try to do that after the nuclear perfusion ventilation scan done. Dieter Griggs DO [facility] # [id number] MTDNeo
== END 2018-04-23 17:27 | disposition home or self-care (01) | DRG 313 ==
LOC: ED 04:20 → ERH 06:24 → 2RNO 09:20 → OBSVTOIN 04-20 13:31
PROVIDERS: ADMIT Family Medicine; ATTEND Family Medicine
DX: R07.9 Chest pain, unspecified (principal); I13.0 Hypertensive heart and chronic kidney disease with heart failure and stage 1 through stage 4 chronic kidney disease, or unspecified chronic kidney disease; I48.2 Chronic atrial fibrillation; I25.119 Atherosclerotic heart disease of native coronary artery with unspecified angina pectoris; I50.9 Heart failure, unspecified; N18.9 Chronic kidney disease, unspecified; K21.9 Gastro-esophageal reflux disease without esophagitis; I27.20 Pulmonary hypertension, unspecified; E03.9 Hypothyroidism, unspecified; E78.00 Pure hypercholesterolemia, unspecified; I35.1 Nonrheumatic aortic (valve) insufficiency; D64.9 Anemia, unspecified; Z79.01 Long term (current) use of anticoagulants; Z95.0 Presence of cardiac pacemaker

== ENCOUNTER 2018-08-14 17:27 | Inpatient (IN) | payer MEDICARE, MEDICAID ==
[2018-08-14 17:27] VITALS: PULSE 62
[2018-08-14 17:31] VITALS: BMI 24.3
[2018-08-14 17:35] VITALS: O2SAT 94
[2018-08-14] MEDS ORDERED: Sodium Chloride 0.9% 1,000 ML IV STA (17:39)
[2018-08-14] MEDS: Albuterol-Ipratrop 3 mg / 0.5 (3 ml) UD IH SCH ×3 (18:00→18:54)
--- NOTE | 2018-08-14 18:01 | ED PDOC ---
Arrival/HPI - General Chief Complaint: Headache Historian: Patient - History of Present Illness Narrative History of Present Illness (Text): 08/14/18 17:59 88 year old male whose past medical history includes hypothyroidism, hypertension, BPH, on Coumadin, presents to the emergency department for a complaint of shortness of breath for the last 2 days. He states that he has been experiencing a non-productive cough, intermittent dizziness and subjective fever. He denies any recent travel, sick contacts, or taking any medication for his symptoms. Patient lives at home alone. The patient denies chills, headache, chest pain, dyspnea on exertion, abdominal pain, nausea, vomiting, diarrhea, back pain, neck pain, urinary/bowel changes, or any other complaint. PMD: Dr. Griggs Time/Duration: Other (2 days) Symptom Onset: Sudden Symptom Course: Unchanged Activities at Onset: Rest, Light Context: Home Past Medical History - Provider Review Nursing Documentation Reviewed: Yes - Infectious Disease Hx of Infectious Diseases: None - Tetanus Immunization Tetanus Immunization: Unknown - Cardiac Hx Cardiac Disorders: Yes (A Difib with pacemaker, on coumadin +dig) Hx Hypertension: Yes - Pulmonary Hx Respiratory Disorders: No - Neurological Hx Neurological Disorder: No - HEENT Hx HEENT Disorder: No - Renal Hx Renal Disorder: No - Endocrine/Metabolic Hx Endocrine Disorders: Yes Hx Hypothyroidism: Yes - Hematological/Oncological Hx Blood Disorders: No Hx Blood Transfusions: No Hx Blood Transfusion Reaction: (NA) - Integumentary Hx Dermatological Disorder: No - Musculoskeletal/Rheumatological Hx Musculoskeletal Disorders: Yes - Gastrointestinal Hx Gastrointestinal Disorders: No - Genitourinary/Gynecological Hx Genitourinary Disorders: Yes Hx Hematuria: Yes - Psychiatric Hx Psychophysiologic Disorder: No Hx Substance Use: No - Past Surgical History Past Surgical History: No Previous - Anesthesia Hx Anesthesia: Yes Hx Anesthesia Reactions: Yes (bradycardia, asystole) Hx Malignant Hyperthermia: No - Suicidal Assessment Feels Threatened In Home Enviroment: No Family/Social History - Physician Review Nursing Documentation Reviewed: Yes Family/Social History: No Known Family HX Smoking Status: Never Smoked Hx Alcohol Use: No Hx Substance Use: No Hx Substance Use Treatment: No Allergies/Home Meds Allergies/Adverse Reactions: Allergies No Known Allergies Allergy (Verified 03/14/18 11:46) Home Medications: Home Meds Medication Instructions Recorded Confirmed Isosorbide Mononitrate [Isosorbide 1 tab PO DAILY 04/01/16 04/19/18 Mononitrate ER] Lisinopril 20 mg PO DAILY 04/01/16 04/19/18 Allopurinol [Zyloprim] 100 mg PO DAILY 04/19/18 04/19/18 Tamsulosin [Flomax] 0.4 mg PO DAILY 04/19/18 04/19/18 Review of Systems - Physician Review All systems were reviewed & negative as marked: Yes - Review of Systems Constitutional: absent: Fevers Respiratory: SOB, Cough Cardiovascular: absent: Chest Pain, WYNNE Gastrointestinal: absent: Abdominal Pain, Stool Changes, Diarrhea, Nausea, Vomiting Genitourinary Male: absent: Urinary Output Changes Musculoskeletal: absent: Back Pain, Neck Pain Neurological: Dizziness. absent: Headache Physical Exam Vital Signs Reviewed: Yes Vital Signs Temp Pulse Resp BP Pulse Ox 08/14/18 17:35 98.7 F 84 18 153/67 H 94 L Temperature: Afebrile Blood Pressure: Hypertensive Pulse: Regular Respiratory Rate: Normal Appearance: Positive for: Well-Appearing, Non-Toxic, Comfortable Pain Distress: None Mental Status: Positive for: Alert and Oriented X 3 - Systems Exam Head: Present: Atraumatic, Normocephalic Pupils: Present: PERRL Extroacular Muscles: Present: EOMI Conjunctiva: Present: Normal Mouth: Present: Moist Mucous Membranes Neck: Present: Normal Range of Motion Respiratory/Chest: Present: Good Air Exchange, Other (Crackles to the right lung base). No: Respiratory Distress, Accessory Muscle Use Cardiovascular: Present: Regular Rate and Rhythm, Normal S1, S2. No: Murmurs Abdomen: No: Tenderness, Distention, Peritoneal Signs Back: Present: Normal Inspection Upper Extremity: Present: Normal Inspection. No: Cyanosis, Edema Lower Extremity: Present: Normal Inspection. No: Edema Neurological: Present: GCS=15, CN II-XII Intact, Speech Normal Skin: Present: Warm, Dry, Normal Color. No: Rashes Psychiatric: Present: Alert, Oriented x 3, Normal Insight, Normal Concentration Medical Decision Making ED Course and Treatment: 08/14/18 18:00 Impression: An 88 year old male presents to the emergency department with a complaint of 2 day duration subjective fever, shortness of breath, non- productive cough, and dizziness. Differential Diagnosis included but are not limited to: Bronchitis CHF exacerbation COPD exacerbation Influenza PNA Plan: -- Chest X-ray -- Blood Culture -- Urinalysis -- Rapid Flu -- Labs -- Duonebs --Reglan --Rocephin --Azithromycin --Lasix --SOLU- Medrol --IV Fluids -- Reassess and disposition Prior Visits: Notes and results from previous visits were reviewed. Progress Notes: 08/14/18 19:41 Labs reviewed with leukocytosis of 15 noted with elevated BNP. Troponin elevated to 0.05. Patient reassess with somewhat minimal improvement in pulmonary exam. Discussed case with Dr. Griggs(PCP) who accepts patient onto his service and requests Dr. Booker(cardiology) & Dr. Diamond(pulmonology). - Lab Interpretations I have reviewed the lab results: Yes - RAD Interpretation Radiology Orders: 08/14/18 17:38 CHEST PORTABLE [RAD] Stat - Medication Orders Current Medication Orders: Albuterol/Ipratropium (Duoneb 3 Mg/0.5 Mg (3 Ml) Ud) 3 ml IH Q15M SURI Stop: 08/14/18 18:31 Sodium Chloride (Sodium Chloride 0.9%) 1,000 mls @ 999 mls/hr IV .Q1H1M STA Stop: 08/14/18 18:39 Methylprednisolone (Solu-Medrol) 125 mg IVP STAT STA Stop: 08/14/18 17:58 - Scribe Statement The provider has reviewed the documentation as recorded by the Scribe Lay Granger Provider Scribe Attestation: All medical record entries made by the Scribe were at my direction and personally dictated by me. I have reviewed the chart and agree that the record accurately reflects my personal performance of the history, physical exam, medical decision making, and the department course for this patient. I have also personally directed, reviewed, and agree with the discharge instructions and disposition. Disposition/Present on Arrival - Present on Arrival History of DVT/PE: No History of Uncontrolled Diabetes: No Urinary Catheter: No History of Decub. Ulcer: No History Surgical Site Infection Following: None - Disposition
[2018-08-14 18:40] LABS: URINE BILIRUBIN NEGATIVE (NEGATIVE); URINE BLOOD LARGE (NEGATIVE); URINE GLUCOSE (UA) NEGATIVE (NEGATIVE); URINE LEUKOCYTE ESTERASE TRACE Leu/uL (NEGATIVE); URINE PROTEIN 30 mg/dL (<30 mg/dL)
[2018-08-14 18:43] LABS: URINE APPEARANCE SL CLOUDY (CLEAR); URINE COLOR YELLOW (YELLOW)
[2018-08-14 18:50] LABS: BASO # 0.02 K/mm3 (0.0-2.0); BASO % 0.1 % (0.0-3.0); EOS % 0.1 % (1.5-5.0); GRAN # 12.01 (1.4-6.5); GRAN % 78.6 % (50.0-68.0); HEMOGLOBIN 12.8 g/dL (14.0-18.0); LYMPH # 1.3 (1.2-3.4); LYMPH % 8.6 % (22.0-35.0); MEAN CELL VOLUME 99.7 fl (80.0-105.0); MEAN CORPUSCULAR HEMOGLOBIN 33.1 pg (25.0-35.0); MEAN CORPUSCULAR HGB CONC 33.2 g/dl (31.0-37.0); MEAN PLATELET VOLUME 10.8 fl (7.0-11.0); MONO # 1.9 (0.1-0.6); MONO % 12.6 % (1.0-6.0); RBC 3.87 10^6/uL (3.5-6.1); RED CELL DISTRIBUTION WIDTH 15.6 % (11.5-14.5); WHITE BLOOD COUNT 15.3 10^3/uL (4.5-11.0)
[2018-08-14 18:52] LABS: URINE BACTERIA MOD /hpf; URINE RBC TNTC /hpf (0-2); URINE WBC 25 - 30 /hpf (0-6)
[2018-08-14 18:56] LABS: INR 1.68; PROTHROMBIN TIME 19.3 SECONDS (9.4-12.5)
[2018-08-14 18:59] LABS: ALBUMIN 3.8 g/dL (3.0-4.8); CALCIUM 8.3 mg/dL (8.4-10.5)
[2018-08-14 19:10] LABS: TROPONIN I 0.04 ng/mL
[2018-08-14] MEDS ORDERED: Azithromycin 500MG/NS 250ml 500 MG/250 ML BAG IVPB STA (19:10)
[2018-08-14] MEDS ORDERED: cefTRIAXone 1 gm 1 GM/100 ML BAG IVPB STA (19:10)
[2018-08-14 19:29] LABS: VENOUS BLOOD GAS BASE EXCESS 2.9 mmol/L (0.0-2.0); VENOUS BLOOD GAS PO2 54 mm/Hg (30-55); VENOUS BLOOD PH 7.42 (7.32-7.43)
--- NOTE | 2018-08-15 09:21 | RAD ---
Date of service: 08/14/2018 HISTORY: cough COMPARISON: 04/19/2018 FINDINGS: LUNGS: No active pulmonary disease. PLEURA: No significant pleural effusion identified, no pneumothorax apparent. CARDIOVASCULAR: No aortic atherosclerotic calcification present. Moderate cardiomegaly no pulmonary vascular congestion. OSSEOUS STRUCTURES: No significant abnormalities. VISUALIZED UPPER ABDOMEN: Normal. OTHER FINDINGS: Single lead pacemaker IMPRESSION: No active disease.
[2018-08-15] MEDS ORDERED: MethylPREDNISolone 40 mg Vial IVP SCH (10:00)
[2018-08-15] MEDS ORDERED: Levothyroxine 50 MCG TAB PO SCH (10:00)
[2018-08-15] MEDS ORDERED: cefTRIAXone 1 gm 1 GM/100 ML BAG IVPB SCH (10:00)
[2018-08-15] MEDS ORDERED: Azithromycin 500MG/NS 250ml 500 MG/250 ML BAG IVPB SCH (10:00)
[2018-08-15 10:23] LABS: HEMOGLOBIN 13.3 g/dL (14.0-18.0); MEAN CELL VOLUME 99.5 fl (80.0-105.0); MEAN CORPUSCULAR HEMOGLOBIN 32.9 pg (25.0-35.0); MEAN CORPUSCULAR HGB CONC 33.1 g/dl (31.0-37.0); MEAN PLATELET VOLUME 11.5 fl (7.0-11.0); RBC 4.04 10^6/uL (3.5-6.1); RED CELL DISTRIBUTION WIDTH 15.3 % (11.5-14.5); WHITE BLOOD COUNT 11.5 10^3/uL (4.5-11.0)
[2018-08-15 10:40] LABS: ALBUMIN 3.8 g/dL (3.0-4.8); ALT/SGPT 24 U/L (7-56); AST/SGOT 27 U/L (17-59); BLOOD UREA NITROGEN 32 mg/dL (7-21); CALCIUM 8.7 mg/dL (8.4-10.5); GFR NON-AFRICAN AMERICAN 52; URIC ACID 6.6 mg/dL (3.5-8.5)
--- NOTE | 2018-08-15 10:57 | CON ---
DATE: 08/15/2018 PULMONARY CONSULTATION SUBJECTIVE: Mr. Sr is an 88-year-old gentleman with a longstanding history of multiple medical problems. He had a nonproductive cough and came to the hospital for further evaluation and treatment. He had fever and chills. There was no associated hemoptysis or chest pain. The shortness of breath has been present for quite some time. The patient has a past history of hypothyroidism and hypertension. He has benign prostatic hypertrophy. Additional history will be reviewed, as the patient is unable to help with further information, although it states that the patient had no previous respiratory disorders. I have seen in the past for COPD and respiratory insufficiency, probable pneumonitis. SOCIAL HISTORY: The patient is a nonsmoker. No occupational or travel history. Additional history unavailable. FAMILY HISTORY: HTN ALLERGIES: NO KNOWN ALLERGIES. HOME MEDICATIONS: Flomax, Zyloprim, lisinopril, isosorbide. REVIEW OF SYSTEMS: Gleaned from the chart. No additional abnormalities noted. The patient is unable to give further information at this time. PHYSICAL EXAMINATION: GENERAL: The patient is resting comfortably in no acute distress. VITAL SIGNS: He is afebrile. Temperature 98.6, pulse 80, respiratory rate 16, blood pressure 150/70, pulse ox is 98% on supplemental oxygen. HEENT: Normocephalic, atraumatic. Eyes: PERRL. EOMs full. Conjunctivae pink. NECK: Supple. No JVD. No bruit. No mass. CHEST: Bilateral rales and rhonchi throughout both lung damon. No wheezing appreciated. HEART: Regular rhythm. S1, S2. Soft systolic ejection murmur at the lower left sternal border. ABDOMEN: Soft. Bowel sounds normoactive without mass, guarding, rebound or organomegaly. EXTREMITIES: Reveal no clubbing, cyanosis or edema. NEUROLOGIC: Exam reveals no focal findings. SKIN: Warm and dry. No rash or excoriation. Lymphadenopathy is not present. IMAGING STUDIES: Chest x-ray has not been completed. LABORATORY STUDIES: Show a white count of 15,000, hemoglobin of 12.8. Chemistries, BUN of 30, creatinine 1.6. BNP 2330. IMPRESSION: Clinical status is associated with cough and expectoration consistent with possible pneumonitis, pulmonary vascular congestion needs to be considered. Await further diagnostics. With the elevated BNP, we suspect congestive heart failure. Cardiology evaluation is pending. Once the x-ray has been completed, we will decide on the need for further intervention. PLAN: At this time, the patient has already been started on inhaled bronchodilators and corticosteroids. I strongly suggest that Cardiology get involved and that the patient can be given diuresis. The patient is maintained on Coumadin for unknown reasons. We will follow closely with you and decide on the need for further intervention based on clinical findings. Chest x-ray needs to be expedited. We will do so and review as soon as it is available to discuss with you in the timely manner. Thank you for the opportunity to evaluate this gentleman. Vlad Pike MD MTDD
--- NOTE | 2018-08-15 14:17 | CON ---
DATE: 08/15/2018 CARDIOLOGY CONSULTATION HISTORY: The patient is an 88-year-old male, who presents with epigastric discomfort. PAST MEDICAL HISTORY: The patient's past medical history includes a history of chronic atrial fibrillation treated with Coumadin. He is status post pacemaker placement, presumably for a low heart rate. His elevated heart rate is controlled with Lopressor. In addition, he suffers from hypertension and hypercholesterolemia. 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 REVIEW OF SYSTEMS: Essentially negative. PHYSICAL EXAMINATION: VITAL SIGNS: Blood pressure 137/70, heart rate is in the 70s. NECK: Negative JVD. LUNGS: Without rales. HEART: S1, S2. EXTREMITIES: Without edema. LABORATORY DATA: INR is 1.68. Hemoglobin is 13. Chemistries, troponins unchanged from his previous. EKG shows a paced rhythm. Glucose is 252. IMPRESSION: 1. Resolution of epigastric pain. 2. No evidence for acute coronary syndrome. 3. Chronic atrial fibrillation. 4. Hypertension. 5. History of pacemaker placement. PLAN: Given these findings, there is no evidence for acute coronary syndrome. The patient is currently asymptomatic. We will discontinue telemetry today. Given his cardiac risk factors, we will arrange for an outpatient stress test. Maury Booker MD
--- NOTE | 2018-08-15 14:20 | CP.PCM.APN ---
Subjective - Date & Time of Evaluation Date of Evaluation: 08/15/18 Time of Evaluation: 10:00 - Subjective Subjective: Pt. seen and examined at bedside. Is with persistent non-productive cough. Denied shortness of breath, denied chest pain, palpitations, dizziness. Review of Systems - Constitutional Constitutional: As Per HPI - EENT Eyes: As Per HPI Ears: As Per HPI Nose/Mouth/Throat: As Per HPI - Cardiovascular Cardiovascular: As Per HPI - Respiratory Respiratory: As Per HPI - Gastrointestinal Gastrointestinal: As Per HPI - Genitourinary Genitourinary: As Per HPI - Musculoskeletal Musculoskeletal: As Per HPI - Integumentary Integumentary: As Per HPI - Neurological Neurological: As Per HPI - Hematologic/Lymphatic Hematologic: As Per HPI Objective - Vital Signs/Intake and Output Vital Signs (last 24 hours): Temp Pulse Resp BP Pulse Ox 97.2 F L 61 20 91/48 L 94 L 08/15/18 12:00 08/15/18 12:00 08/15/18 12:00 08/15/18 12:00 08/14/18 22:49 Intake and Output: 08/15/18 08/15/18 06:59 18:59 Intake Total 0 Output Total 200 Balance -200 - Medications Medications: Current Medications Acetaminophen (Tylenol 325mg Tab) 650 mg PO Q6H PRN PRN Reason: Fever >100.4 F Allopurinol (Zyloprim) 100 mg PO DAILY [facility] Last Admin: 08/15/18 09:49 Dose: 100 mg Famotidine (Pepcid) [address] [facility] Ceftriaxone Sodium (Rocephin 1 Gram Ivpb) 1 gm in 100 mls @ 100 mls/hr IVPB DAILY [facility]; Protocol Stop: 08/19/18 10:59 Last Admin: 08/15/18 09:51 Dose: 100 mls/hr Azithromycin (Zithromax 500mg In Ns) 500 mg in 250 mls @ 167 mls/hr IVPB DAILY [facility]; Protocol Last Admin: 08/15/18 09:50 Dose: 167 mls/hr Isosorbide Mononitrate (Imdur Er) 60 mg PO DAILY [facility] Last Admin: 08/15/18 09:47 Dose: 60 mg Levothyroxine Sodium (Synthroid) 50 mcg PO DAILY [facility] Last Admin: 08/15/18 09:49 Dose: 50 mcg Lisinopril (Zestril) 20 mg PO DAILY [facility] Last Admin: 08/15/18 09:46 Dose: 20 mg Methylprednisolone (Solu-Medrol) 30 mg IVP Q12 [facility] Last Admin: 08/15/18 09:50 Dose: 30 mg Metoprolol Tartrate (Lopressor) 50 mg PO BID [facility] Last Admin: 08/15/18 09:49 Dose: 50 mg Tamsulosin HCl (Flomax) 0.4 mg PO DAILY [facility] Last Admin: 08/15/18 09:49 Dose: 0.4 mg Warfarin Sodium (Coumadin) 4 mg PO 1800 [facility] - Labs Labs: 08/15/18 09:30 08/15/18 09:30 PT 19.3 SECONDS (9.4-12.5) H 08/14/18 18:39 INR 1.68 08/14/18 18:39 APTT 36.0 Seconds (25.1-36.5) 08/14/18 18:39 - Constitutional Appears: Well, Non-toxic - Head Exam Head Exam: NORMAL INSPECTION - Eye Exam Eye Exam: Normal appearance Pupil Exam: NORMAL ACCOMODATION - Neck Exam Neck Exam: Normal Inspection - Respiratory Exam Respiratory Exam: Rhonchi - Cardiovascular Exam Cardiovascular Exam: Irregular Rhythm, +S1, +S2 - GI/Abdominal Exam GI & Abdominal Exam: Soft, Normal Bowel Sounds - Rectal Exam Rectal Exam: Deferred - Extremities Exam Extremities Exam: Full ROM, Normal Inspection - Back Exam Back Exam: NORMAL INSPECTION - Neurological Exam Neurological Exam: Alert, Awake, Oriented x3 Assessment and Plan - Assessment and Plan (Free Text) Assessment: Laboratory Tests 08/14/18 08/14/18 08/14/18 18:32 18:39 18:39 WBC 15.3 H RBC 3.87 Hgb 12.8 L Hct 38.6 L MCV 99.7 MCH 33.1 MCHC 33.2 RDW 15.6 H Plt Count 161 MPV 10.8 Gran % 78.6 H Lymph % (Auto) 8.6 L Glades % (Auto) 12.6 H Eos % (Auto) 0.1 L Baso % (Auto) 0.1 Gran # 12.01 H Lymph # (Auto) 1.3 Glades # (Auto) 1.9 H Eos # (Auto) 0.0 Baso # (Auto) 0.02 PT 19.3 H INR 1.68 APTT 36.0 pO2 VBG pH VBG pCO2 VBG HCO3 VBG Total CO2 VBG O2 Sat (Calc) VBG Base Excess VBG Potassium Glucose Lactate FiO2 Sodium Potassium Chloride Carbon Dioxide Anion Gap BUN Creatinine Est GFR ( Amer) Est GFR (Non-Af Amer) Random Glucose Uric Acid Calcium Magnesium Total Bilirubin AST ALT Alkaline Phosphatase Troponin I NT-Pro-B Natriuret Pep Total Protein Albumin Globulin Albumin/Globulin Ratio TSH 3rd Generation Venous Blood Potassium Urine Color Yellow Urine Appearance Sl cloudy Urine pH 6.0 Ur Specific Kimball 1.025 Urine Protein 30 H Urine Glucose (UA) Negative Urine Ketones Negative Urine Blood Large H Urine Nitrate Negative Urine Bilirubin Negative Urine Urobilinogen 1.0 H Ur Leukocyte Esterase Trace H Urine RBC Tntc H Urine WBC 25 - 30 H Ur Epithelial Cells 10 - 12 H Urine Bacteria Mod Digoxin Influenza Typ A,B (EIA) 08/14/18 08/14/18 08/14/18 18:39 18:45 19:25 WBC RBC Hgb Hct MCV MCH MCHC RDW Plt Count MPV Gran % Lymph % (Auto) Glades % (Auto) Eos % (Auto) Baso % (Auto) Gran # Lymph # (Auto) Glades # (Auto) Eos # (Auto) Baso # (Auto) PT INR APTT pO2 54 VBG pH 7.42 VBG pCO2 43.0 VBG HCO3 27.9 VBG Total CO2 29.2 H VBG O2 Sat (Calc) 93.5 H VBG Base Excess 2.9 H VBG Potassium 3.7 Glucose 170 H Lactate 1.7 FiO2 21.0 Sodium 136 137.0 Potassium 3.8 Chloride 100 100.0 Carbon Dioxide 28 Anion Gap 12 BUN 30 H Creatinine 1.6 H Est GFR ( Amer) 49 Est GFR (Non-Af Amer) 41 Random Glucose 172 H Uric Acid Calcium 8.3 L Magnesium 1.9 Total Bilirubin 1.2 AST 32 ALT 25 Alkaline Phosphatase 100 Troponin I 0.04 NT-Pro-B Natriuret Pep 2330 H Total Protein 7.4 Albumin 3.8 Globulin 3.6 Albumin/Globulin Ratio 1.0 L TSH 3rd Generation Venous Blood Potassium 3.7 Urine Color Urine Appearance Urine pH Ur Specific Kimball Urine Protein Urine Glucose (UA) Urine Ketones Urine Blood Urine Nitrate Urine Bilirubin Urine Urobilinogen Ur Leukocyte Esterase Urine RBC Urine WBC Ur Epithelial Cells Urine Bacteria Digoxin Influenza Typ A,B (EIA) Negative for flu a/b 08/15/18 08/15/18 08/15/18 09:30 09:30 09:30 WBC 11.5 H D RBC 4.04 Hgb 13.3 L Hct 40.2 L MCV 99.5 MCH 32.9 MCHC 33.1 RDW 15.3 H Plt Count 174 MPV 11.5 H Gran % Lymph % (Auto) Glades % (Auto) Eos % (Auto) Baso % (Auto) Gran # Lymph # (Auto) Glades # (Auto) Eos # (Auto) Baso # (Auto) PT INR APTT pO2 VBG pH VBG pCO2 VBG HCO3 VBG Total CO2 VBG O2 Sat (Calc) VBG Base Excess VBG Potassium Glucose Lactate FiO2 Sodium 138 Potassium 4.3 Chloride 103 Carbon Dioxide 28 Anion Gap 11 BUN 32 H Creatinine 1.3 Est GFR ( Amer) > 60 Est GFR (Non-Af Amer) 52 Random Glucose 252 H Uric Acid 6.6 Calcium 8.7 Magnesium Total Bilirubin 0.7 AST 27 ALT 24 Alkaline Phosphatase 96 Troponin I NT-Pro-B Natriuret Pep Total Protein 7.7 Albumin 3.8 Globulin 3.9 Albumin/Globulin Ratio 1.0 L TSH 3rd Generation 1.24 Venous Blood Potassium Urine Color Urine Appearance Urine pH Ur Specific Kimball Urine Protein Urine Glucose (UA) Urine Ketones Urine Blood Urine Nitrate Urine Bilirubin Urine Urobilinogen Ur Leukocyte Esterase Urine RBC Urine WBC Ur Epithelial Cells Urine Bacteria Digoxin Influenza Typ A,B (EIA) 08/15/18 09:30 WBC RBC Hgb Hct MCV MCH MCHC RDW Plt Count MPV Gran % Lymph % (Auto) Glades % (Auto) Eos % (Auto) Baso % (Auto) Gran # Lymph # (Auto) Glades # (Auto) Eos # (Auto) Baso # (Auto) PT INR APTT pO2 VBG pH VBG pCO2 VBG HCO3 VBG Total CO2 VBG O2 Sat (Calc) VBG Base Excess VBG Potassium Glucose Lactate FiO2 Sodium Potassium Chloride Carbon Dioxide Anion Gap BUN Creatinine Est GFR ( Amer) Est GFR (Non-Af Amer) Random Glucose Uric Acid Calcium Magnesium Total Bilirubin AST ALT Alkaline Phosphatase Troponin I NT-Pro-B Natriuret Pep Total Protein Albumin Globulin Albumin/Globulin Ratio TSH 3rd Generation Venous Blood Potassium Urine Color Urine Appearance Urine pH Ur Specific Kimball Urine Protein Urine Glucose (UA) Urine Ketones Urine Blood Urine Nitrate Urine Bilirubin Urine Urobilinogen Ur Leukocyte Esterase Urine RBC Urine WBC Ur Epithelial Cells Urine Bacteria Digoxin < 0.4 L Influenza Typ A,B (EIA) Impressions Chest X-Ray 08/14/18 17:38 IMPRESSION: No active disease. 88 year old male whose past medical history includes hypothyroidism, hypertension, BPH, on Coumadin, presents to the emergency department for a complaint of shortness of breath for the last 2 days. He states that he has been experiencing a non-productive cough, intermittent dizziness, admitted with CHF, Currently undergoing eval by ticket collector or usher and cardiology eval. Plan: 1. Pneumonitis/ Bronchitis Patient still with cough, continue Iv antibiotics and IV Solumedrol, Blood culture and urine culture results pending. 2. UTI Currently awaiting urine culture results, continue IV antibiotics. 3. Dizziness - PT eval is pending. 4. CHF unlikely, with cxr negative, per cardiology. AWait PT eval for recommendations, SW/CM for DC planning Will continue to monitor clinical status and follow closely. .
[2018-08-15 17:21] VITALS: BP 108/61; PULSE 65
--- NOTE | 2018-08-15 18:08 | CARD ---
APPROVED REPORT Date of service: 08/14/2018 EKG Measurement Heart [id number] <Conclusion> Electronic ventricular pacemaker
[2018-08-15 19:01] VITALS: RESP 18; TEMP 97.4
--- NOTE | 2018-08-16 08:26 | HP ---
DATE OF EXAM: 08/15/2018 HISTORY OF PRESENT ILLNESS: I saw him resting comfortably in bed this morning. He slept fairly well. He is an 88-year-old man, who I know for many years, who presents to the emergency department for shortness of breath for two days with nonproductive cough, intermittent dizziness, subjective fever. No traveling. He is taking his medications. He is pretty good patient. He is compliant. He is an 88-year-old man, who is short of breath. PAST MEDICAL HISTORY: Includes hypothyroidism, hypertension, and BPH. He is on Coumadin for AFib. He has CHF. He has defibrillator and pacemaker. He is on Coumadin and digoxin. He has got hypertension. He has arthritis. He has had gout. He has had hematuria in the past. He has had stones. He has had bradycardia. He has had asystole in the past. FAMILY HISTORY: No known family history. SOCIAL HISTORY: Nonsmoker, nondrinker. He does drink a little alcohol but he kind of stopped. ALLERGIES: NO KNOWN DRUG ALLERGIES. MEDICATIONS: He is on Imdur, lisinopril, Zyloprim, and Flomax. REVIEW OF SYSTEMS: He gets shortness of breath and cough. No chest pain. No dyspnea on exertion. No abdominal pain or stool changes. No problems urinating. No back pain. No neck pain. His swollen. No headache or dizziness. PHYSICAL EXAMINATION: GENERAL: He is well appearing, nontoxic, comfortable, alert and oriented x3. VITAL SIGNS: He has 98.7 temperature, 84 pulse, 18 respiratory rate, 153/67 blood pressure, and 94% O2 saturation on room air. HEENT: Head is atraumatic, normocephalic. Extraocular muscles are intact. Pupils are equal and reactive to light and accommodation. Throat is moist. NECK: Supple. No JVD. Thyroid midline. HEART: Regular rate. Normal S1, S2. LUNGS: Decreased breath sounds. He has got crackles to the right base, on the ER, now it is better. ABDOMEN: Soft and nontender. Positive bowel sounds. EXTREMITIES: No edema at this time. GCS is 15. NEUROLOGIC: Cranial nerves II-XII grossly intact. Speech is normal. Alert and oriented x3. SKIN: Warm and dry. No apparent rashes or ulcers. LYMPH NODES: No appreciable lymphadenopathy palpated. LABORATORY DATA: He had multiple tests. He had 15.2 white count, elevated yesterday; 12.8 hemoglobin; 38.6 hematocrit with 161,000 platelets. INR was 1.68. Sodium 136; potassium 3.8; BUN 30; creatinine 1.6, GFR is 41, sugar is 172, calcium is 8.3, magnesium 1.9, total bili is 1.2, AST is 32, ALT is 25, alk phos 100, troponin I is 0.04, BNP is high at 2330, and total protein is 7.4. Urine with large and moderate bacteria, UTI, negative for the flu. MEDICATIONS: He is on allopurinol, Zestril, warfarin, Solu-Medrol. His dose of Rocephin and Zithromax, I will continue that. IMPRESSION AND PLAN: There are consults for Cardiology and Pulmonology. I will wait and see what they think. They have not seen the patient yet. The chest x-ray is pending. He comes up for bronchitis, congestive heart failure, chronic obstructive pulmonary disease kind of picture, rule out pneumonia. I will continue him on aggressive treatment and care comes back on the chest x-ray. We will make him an inpatient. We will continue with aggressive treatment and care. We will keep him in observation right now, wait and see what Pulmonary and Cardio has to say. Dieter Griggs DO MTDD
== END 2018-08-15 21:12 | disposition home or self-care (01) | DRG 192 ==
LOC: ED 17:27 → ERH 19:12 → 2RNO 22:44
PROVIDERS: ADMIT Family Medicine; ATTEND Family Medicine
DX: J44.1 Chronic obstructive pulmonary disease with (acute) exacerbation (principal); I11.0 Hypertensive heart disease with heart failure; N40.0 Benign prostatic hyperplasia without lower urinary tract symptoms; E03.9 Hypothyroidism, unspecified; R42 Dizziness and giddiness; R50.9 Fever, unspecified; I50.9 Heart failure, unspecified; E78.00 Pure hypercholesterolemia, unspecified; I48.2 Chronic atrial fibrillation; Z79.01 Long term (current) use of anticoagulants; Z86.74 Personal history of sudden cardiac arrest; Z95.0 Presence of cardiac pacemaker; R40.2412 Glasgow coma scale score 13-15, at arrival to emergency department; M19.90 Unspecified osteoarthritis, unspecified site

== ENCOUNTER 2018-08-21 04:18 | Observation (INO) | payer MEDICARE, MEDICAID ==
[2018-08-21 04:18] VITALS: PULSE 62
[2018-08-21 04:20] VITALS: BMI 30.5
--- NOTE | 2018-08-21 04:32 | ED PDOC ---
Arrival/HPI - General Chief Complaint: Abdominal Pain Time Seen by Provider: 08/21/18 04:24 Historian: Patient - History of Present Illness Narrative History of Present Illness (Text): 08/21/18 04:31 Ricardo Sr is an 88 year old male, whose past medical history includes hypothyroidism, hypertension, BPH, atrial fibrillation, CHF, pacemaker, and Gout, who presents to the Emergency department complaining of mid-sternal chest pain. Patient also reports associated epigastric pain. Patient denies any fever, chills, shortness of breath, nausea, vomiting, diarrhea, urinary symptoms, back pain, neck pain, headache, dizziness, or any other complaints. Symptom Onset: Gradual Symptom Course: Unchanged Activities at Onset: Light Context: Home Past Medical History - Provider Review Nursing Documentation Reviewed: Yes - Infectious Disease Hx of Infectious Diseases: None - Tetanus Immunization Tetanus Immunization: Unknown - Cardiac Hx Hypertension: Yes - Pulmonary Hx Respiratory Disorders: No - Neurological Hx Neurological Disorder: No - HEENT Hx HEENT Disorder: No - Renal Hx Renal Disorder: No - Endocrine/Metabolic Hx Hypothyroidism: Yes - Hematological/Oncological Hx Blood Disorders: No Hx Blood Transfusions: No Hx Blood Transfusion Reaction: (NA) - Integumentary Hx Dermatological Disorder: No - Musculoskeletal/Rheumatological Hx Falls: No - Gastrointestinal Hx Gastrointestinal Disorders: No - Genitourinary/Gynecological Hx Genitourinary Disorders: Yes Hx Hematuria: Yes - Psychiatric Hx Psychophysiologic Disorder: No Hx Substance Use: No - Past Surgical History Past Surgical History: No Previous - Anesthesia Hx Anesthesia: Yes Hx Anesthesia Reactions: Yes (bradycardia, asystole) Hx Malignant Hyperthermia: No - Suicidal Assessment Feels Threatened In Home Enviroment: No Family/Social History - Physician Review Nursing Documentation Reviewed: Yes Family/Social History: Unknown Family HX Smoking Status: Never Smoked Hx Alcohol Use: No Hx Substance Use: No Hx Substance Use Treatment: No Allergies/Home Meds Allergies/Adverse Reactions: Allergies No Known Allergies Allergy (Verified 08/21/18 04:22) Home Medications: Home Meds Medication Instructions Recorded Confirmed Isosorbide Mononitrate [Isosorbide 1 tab PO DAILY 04/01/16 08/21/18 Mononitrate ER] Lisinopril 20 mg PO DAILY 04/01/16 08/21/18 Tamsulosin [Flomax] 0.4 mg PO DAILY 04/19/18 08/21/18 Review of Systems - Physician Review All systems were reviewed & negative as marked: Yes - Review of Systems Constitutional: Normal. absent: Fevers Eyes: Normal ENT: Normal Respiratory: Normal. absent: SOB, Cough Cardiovascular: Chest Pain Gastrointestinal: Abdominal Pain. absent: Diarrhea, Vomiting Genitourinary Male: Normal. absent: Dysuria, Frequency, Hematuria, Urinary Output Changes Musculoskeletal: Normal. absent: Back Pain, Neck Pain Skin: Normal. absent: Rash Neurological: Normal. absent: Headache, Dizziness Endocrine: Normal Hemo/Lymphatic: Normal Psychiatric: Normal Physical Exam Vital Signs Reviewed: Yes Vital Signs Temp Pulse Resp BP Pulse Ox 08/21/18 04:28 97.5 F L 77 18 200/101 H 97 Temperature: Afebrile Blood Pressure: Hypertensive Pulse: Regular Respiratory Rate: Normal Appearance: Positive for: Well-Appearing, Non-Toxic, Comfortable Pain Distress: None Mental Status: Positive for: Alert and Oriented X 3 - Systems Exam Head: Present: Atraumatic, Normocephalic Pupils: Present: PERRL Extroacular Muscles: Present: EOMI Conjunctiva: Present: Normal Mouth: Present: Moist Mucous Membranes Neck: Present: Normal Range of Motion Respiratory/Chest: Present: Clear to Auscultation, Good Air Exchange. No: Respiratory Distress, Accessory Muscle Use Cardiovascular: Present: Regular Rate and Rhythm, Normal S1, S2. No: Murmurs Abdomen: No: Tenderness, Distention, Peritoneal Signs Back: Present: Normal Inspection Upper Extremity: Present: Normal Inspection. No: Cyanosis, Edema Lower Extremity: Present: Normal Inspection. No: Edema Neurological: Present: GCS=15, CN II-XII Intact, Speech Normal Skin: Present: Warm, Dry, Normal Color. No: Rashes Psychiatric: Present: Alert, Oriented x 3, Normal Insight, Normal Concentration Medical Decision Making ED Course and Treatment: 08/21/18 04:31 Impression: 88 year old male complaining of chest pain and abdominal pain. Plan: -- EKG -- Chest X-ray -- Labs, cardiac enzymes, lipase -- Urinalysis -- Nitroglycerin -- Reassess and disposition Prior Visits: Notes and results from previous visits were reviewed. Progress Notes: Reviewed EKG, 100% paced rhythm at 77 bpm. 08/21/18 05:17 Chest X-ray reviewed, shows no acute processes. 08/21/18 06:[address] Griggs, who is aware and agrees with plan. Accepts pt in to his service. Pt will go to Telemetry observation for chest pain. Requests Dr. Booker on consult. 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 I have reviewed the chart and agree that the record accurately reflects my personal performance of the history, physical exam, medical decision making, and the department course for this patient. I have also personally directed, reviewed, and agree with the discharge instructions and disposition. Disposition/Present on Arrival - Present on Arrival Any Indicators Present on Arrival: No History of DVT/PE: No History of Uncontrolled Diabetes: No Urinary Catheter: No History of Decub. Ulcer: No History Surgical Site Infection Following: None - Disposition Have Diagnosis and Disposition been Completed?: Yes Diagnosis: Chest pain Disposition: HOSPITALIZED Disposition Time: 06:10 Patient Plan: Observation Condition: STABLE
[2018-08-21] MEDS ORDERED: Nitroglycerin 2% Ointment Foilpak UD TOP STA (04:36)
[2018-08-21 04:59] LABS: INR 1.86; PARTIAL THROMBOPLASTIN TIME 40.7 Seconds (25.1-36.5); PROTHROMBIN TIME 21.5 SECONDS (9.4-12.5)
[2018-08-21 05:13] LABS: HEMOGLOBIN 13.9 g/dL (14.0-18.0); MEAN CELL VOLUME 98.8 fl (80.0-105.0); MEAN CORPUSCULAR HEMOGLOBIN 33.3 pg (25.0-35.0); MEAN CORPUSCULAR HGB CONC 33.7 g/dl (31.0-37.0); MEAN PLATELET VOLUME 10.4 fl (7.0-11.0); RBC 4.18 10^6/uL (3.5-6.1); RED CELL DISTRIBUTION WIDTH 14.9 % (11.5-14.5); WHITE BLOOD COUNT 12.2 10^3/uL (4.5-11.0)
[2018-08-21 05:21] LABS: TROPONIN I 0.03 ng/mL
[2018-08-21 05:50] LABS: ALT/SGPT 44 U/L (7-56); AST/SGOT 41 U/L (17-59); BLOOD UREA NITROGEN 23 mg/dL (7-21); CALCIUM 8.8 mg/dL (8.4-10.5); GFR NON-AFRICAN AMERICAN 52; LIPASE 140 U/L (23-300)
[2018-08-21 06:42] LABS: PH,URINE 6.5 (4.7-8.0); URINE BILIRUBIN NEGATIVE (NEGATIVE); URINE BLOOD LARGE (NEGATIVE); URINE GLUCOSE (UA) NEGATIVE (NEGATIVE); URINE LEUKOCYTE ESTERASE NEGATIVE Leu/uL (NEGATIVE); URINE PROTEIN 30 mg/dL (<30 mg/dL); URINE UROBILINOGEN 0.2 E.U./dL (<1 E.U./dL)
[2018-08-21 06:43] LABS: URINE APPEARANCE SL CLOUDY (CLEAR); URINE COLOR YELLOW (YELLOW)
[2018-08-21 07:05] LABS: URINE BACTERIA OCC /hpf; URINE EPITHELIAL CELLS 0 - 2 /hpf (0-5); URINE RBC TNTC /hpf (0-2); URINE WBC 0 - 2 /hpf (0-6)
--- NOTE | 2018-08-21 09:07 | CARD ---
APPROVED REPORT Date of service: 08/21/2018 EKG Measurement Heart [id number] <Conclusion> Electronic ventricular pacemaker
--- NOTE | 2018-08-21 09:17 | RAD ---
Date of service: 08/21/2018 HISTORY: chest pain COMPARISON: 08/14/2018 FINDINGS: LUNGS: No active pulmonary disease. PLEURA: No significant pleural effusion identified, no pneumothorax apparent. CARDIOVASCULAR: Minimal aortic calcification Mild cardiomegaly no pulmonary vascular congestion. OSSEOUS STRUCTURES: No significant abnormalities. VISUALIZED UPPER ABDOMEN: Normal. OTHER FINDINGS: Single lead pacemaker IMPRESSION: No active disease.
[2018-08-21] MEDS ORDERED: Morphine 2 mg/ml ISec IVP PRN (10:15)
[2018-08-21] MEDS ORDERED: Morphine 4 mg/ml ISec ONE (11:07)
--- NOTE | 2018-08-21 12:57 | CP.PCM.CON ---
<Alex Caballero - Last Filed: 08/21/18 15:37> History of Present Illness - History of Present Illness History of Present Illness: PGY-4 GI Fellow Consult Note Pt is an 88 yo Hisp Male with AFib (on warfarin, s/p pacemaker), CHF, HTN, HLD, Hypothyroid who presenting with abdominal and back pain. He states over the last 3-4 days he has had constant, diffuse abd pain associated with mid-low back pain. He cannot identify any precipitating or alleviating factors, including no change in PO intake. He denied any weight loss, trouble swallowing, odynophagia, N/V, melena nor hematochezia. He denies any prior endoscopic evaluations. He states that his bowel movements are nearly daily with some shade of brown. 12 point ROS negative other than stated above MHx: See above SurgHx: Hernia surgery Meds: Reviewed in chart FamHx: Unknown CA history SocHx: Denied x 3 All: NKDA Past Patient History - Infectious Disease Hx of Infectious Diseases: None - Tetanus Immunizations Tetanus Immunization: Unknown - Past Social History Smoking Status: Never Smoked - CARDIAC Hx Hypertension: Yes - PULMONARY Hx Respiratory Disorders: No - NEUROLOGICAL Hx Neurological Disorder: No - HEENT Hx HEENT Problems: No - RENAL Hx Chronic Kidney Disease: No - ENDOCRINE/METABOLIC Hx Hypothyroidism: Yes - HEMATOLOGICAL/ONCOLOGICAL Hx Blood Disorders: No Hx Blood Transfusions: No Hx Blood Transfusion Reaction: (NA) - INTEGUMENTARY Hx Dermatological Problems: No - MUSCULOSKELETAL/RHEUMATOLOGICAL Hx Falls: No - GASTROINTESTINAL Hx Gastrointestinal Disorders: No - GENITOURINARY/GYNECOLOGICAL Hx Genitourinary Disorders: Yes Hx Hematuria: Yes - PSYCHIATRIC Hx Psychophysiologic Disorder: No Hx Substance Use: No - SURGICAL HISTORY Hx Surgeries: Yes (PACEMAKER) - ANESTHESIA Hx Anesthesia: Yes Hx Anesthesia Reactions: Yes (bradycardia, asystole) Hx Malignant Hyperthermia: No Meds Allergies/Adverse Reactions: Allergies Allergy/AdvReac Type Severity Reaction Status Date / Time No Known Allergies Allergy Verified 08/21/18 04:22 - Medications Medications: Current Medications Famotidine (Pepcid) 20 mg PO 1000,2200 [facility] Furosemide (Lasix) 40 mg PO DAILY [facility] Isosorbide Mononitrate (Imdur) 60 mg PO DAILY [facility] Levothyroxine Sodium (Synthroid) 50 mcg PO DAILY [facility] Lisinopril (Zestril) 20 mg PO DAILY [facility] Metoprolol Tartrate (Lopressor) 50 mg PO BID [facility] Morphine Sulfate (Morphine) 1 mg IVP Q3H PRN PRN Reason: Pain, severe (8-10) Tamsulosin HCl (Flomax) 0.4 mg PO DAILY [facility] Warfarin Sodium (Coumadin) 4 mg PO 1800 [facility] Physical Exam - Constitutional Appears: Well, No Acute Distress - Head Exam Head Exam: ATRAUMATIC, NORMAL INSPECTION - Eye Exam Eye Exam: EOMI. absent: Scleral icterus - ENT Exam ENT Exam: Mucous Membranes Moist. absent: Mucous Membranes Dry - Respiratory Exam Respiratory Exam: Clear to Auscultation Bilateral, NORMAL BREATHING PATTERN. absent: Accessory Muscle Use, Respiratory Distress - Cardiovascular Exam Cardiovascular Exam: REGULAR RHYTHM, RRR - GI/Abdominal Exam GI & Abdominal Exam: Normal Bowel Sounds, Soft. absent: Bruit, Diminished Bowel Sounds, Distended, Firm, Guarding, Hernia, Mass, Organomegaly, Tenderness - Rectal Exam Rectal Exam: Deferred - Extremities Exam Extremities exam: Positive for: normal inspection. Negative for: pedal edema - Neurological Exam Neurological exam: Alert, CN II-XII Intact - Psychiatric Exam Psychiatric exam: Normal Affect, Normal Mood - Skin Skin Exam: Dry, Warm Results - Vital Signs Recent Vital Signs: Last Vital Signs Temp 98.4 F 08/21/18 07:59 Pulse 61 08/21/18 07:59 Resp 18 08/21/18 07:59 BP 146/80 08/21/18 07:59 Pulse Ox 95 08/21/18 07:59 - Labs Result Diagrams: 08/21/18 04:35 08/21/18 04:35 Labs: Laboratory Results - last 24 hr 08/21/18 08/21/18 08/21/18 04:35 04:35 04:35 WBC 12.2 H RBC 4.18 Hgb 13.9 L Hct 41.3 L MCV 98.8 MCH 33.3 MCHC 33.7 RDW 14.9 H Plt Count 281 MPV 10.4 PT 21.5 H INR 1.86 APTT 40.7 H Sodium 139 Potassium 4.0 Chloride 104 Carbon Dioxide 29 Anion Gap 9 L BUN 23 H Creatinine 1.3 Est GFR ( Amer) > 60 Est GFR (Non-Af Amer) 52 Random Glucose 126 H Calcium 8.8 Total Bilirubin 0.8 AST 41 ALT 44 Alkaline Phosphatase 129 H D Lactate Dehydrogenase 468 Total Creatine Kinase 53 Troponin I 0.03 D Total Protein 8.0 Albumin 4.0 Globulin 4.0 Albumin/Globulin Ratio 1.0 L Lipase 140 Urine Color Urine Appearance Urine pH Ur Specific [place] Urine Protein Urine Glucose (UA) Urine Ketones Urine Blood Urine Nitrate Urine Bilirubin Urine Urobilinogen Ur Leukocyte Esterase Urine RBC Urine WBC Ur Epithelial Cells Urine Bacteria 08/21/18 06:33 WBC RBC Hgb Hct MCV MCH MCHC RDW Plt Count MPV PT INR APTT Sodium Potassium Chloride Carbon Dioxide Anion Gap BUN Creatinine Est GFR ( Amer) Est GFR (Non-Af Amer) Random Glucose Calcium Total Bilirubin AST ALT Alkaline Phosphatase Lactate Dehydrogenase Total Creatine Kinase Troponin I Total Protein Albumin Globulin Albumin/Globulin Ratio Lipase Urine Color Yellow Urine Appearance Sl cloudy Urine pH 6.5 Ur Specific [place] 1.025 Urine Protein 30 H Urine Glucose (UA) Negative Urine Ketones Negative Urine Blood Large H Urine Nitrate Negative Urine Bilirubin Negative Urine Urobilinogen 0.2 Ur Leukocyte Esterase Negative Urine RBC Tntc H Urine WBC 0 - 2 Ur Epithelial Cells 0 - 2 Urine Bacteria Occ Assessment & Plan - Assessment and Plan (Free Text) Assessment: 88 yo Hisp Male with Afib, HTN, HLD presenting with CP, Abd Pain and back pain. # Abd Pain: Improved. Denied any symptoms during encounter. Acute onset and resolution, though received pain medication. Exam and labs unremarkable. No prior endoscopic evaluations. Plan: - Abd US - Pantoprazole 40 mg PO QD - Monitor labs - Adv diet as tolerated - Consider outpatient EGD/CSPY Pt seen and examined with Dr. Corrales; please see attestation for further recs/changes. <Hammad Corrales Y - Last Filed: 08/21/18 15:50> Meds - Medications Medications: Current Medications Amlodipine Besylate (Norvasc) 5 mg PO DAILY [facility] Last Admin: 08/21/18 14:25 Dose: 5 mg Famotidine (Pepcid) 20 mg PO 1000,2200 [facility] Last Admin: 08/21/18 13:05 Dose: 20 mg Furosemide (Lasix) 40 mg PO DAILY [facility] Last Admin: 08/21/18 13:05 Dose: 40 mg Isosorbide Mononitrate (Imdur) 60 mg PO DAILY [facility] Last Admin: 08/21/18 13:05 Dose: 60 mg Levothyroxine Sodium (Synthroid) 50 mcg PO DAILY [facility] Last Admin: 08/21/18 13:05 Dose: 50 mcg Lisinopril (Zestril) 20 mg PO DAILY [facility] Last Admin: 08/21/18 13:05 Dose: 20 mg Metoprolol Tartrate (Lopressor) 50 mg PO BID [facility] Last Admin: 08/21/18 14:53 Dose: 50 mg Morphine Sulfate (Morphine) 1 mg IVP Q3H PRN PRN Reason: Pain, severe (8-10) Pantoprazole Sodium (Protonix Ec Tab) 40 mg PO 0600 [facility] Tamsulosin HCl (Flomax) 0.4 mg PO DAILY [facility] Last Admin: 08/21/18 13:05 Dose: 0.4 mg Warfarin Sodium (Coumadin) 4 mg PO 1800 [facility] Results - Vital Signs Recent Vital Signs: Last Vital Signs Temp 97.8 F 08/21/18 12:00 Pulse 68 08/21/18 14:53 Resp 18 08/21/18 13:35 BP 189/79 H 08/21/18 14:53 Pulse Ox 97 08/21/18 14:16 - Labs Result Diagrams: 08/21/18 04:35 08/21/18 04:35 Labs: Laboratory Results - last 24 hr 08/21/18 08/21/18 08/21/18 04:35 04:35 04:35 WBC 12.2 H RBC 4.18 Hgb 13.9 L Hct 41.3 L MCV 98.8 MCH 33.3 MCHC 33.7 RDW 14.9 H Plt Count 281 MPV 10.4 PT 21.5 H INR 1.86 APTT 40.7 H Sodium 139 Potassium 4.0 Chloride 104 Carbon Dioxide 29 Anion Gap 9 L BUN 23 H Creatinine 1.3 Est GFR ( Amer) > 60 Est GFR (Non-Af Amer) 52 Random Glucose 126 H Calcium 8.8 Total Bilirubin 0.8 AST 41 ALT 44 Alkaline Phosphatase 129 H D Lactate Dehydrogenase 468 Total Creatine Kinase 53 Troponin I 0.03 D Total Protein 8.0 Albumin 4.0 Globulin 4.0 Albumin/Globulin Ratio 1.0 L Lipase 140 Urine Color Urine Appearance Urine pH Ur Specific [place] Urine Protein Urine Glucose (UA) Urine Ketones Urine Blood Urine Nitrate Urine Bilirubin Urine Urobilinogen Ur Leukocyte Esterase Urine RBC Urine WBC Ur Epithelial Cells Urine Bacteria 01/02/19 01/02/19 06:33 14:40 WBC RBC Hgb Hct MCV MCH MCHC RDW Plt Count MPV PT INR APTT Sodium Potassium Chloride Carbon Dioxide Anion Gap BUN Creatinine Est GFR ( Amer) Est GFR (Non-Af Amer) Random Glucose Calcium Total Bilirubin AST ALT Alkaline Phosphatase Lactate Dehydrogenase Total Creatine Kinase Troponin I 0.06 D Total Protein Albumin Globulin Albumin/Globulin Ratio Lipase Urine Color Yellow Urine Appearance Sl cloudy Urine pH 6.5 Ur Specific [place] 1.025 Urine Protein 30 H Urine Glucose (UA) Negative Urine Ketones Negative Urine Blood Large H Urine Nitrate Negative Urine Bilirubin Negative Urine Urobilinogen 0.2 Ur Leukocyte Esterase Negative Urine RBC Tntc H Urine WBC 0 - 2 Ur Epithelial Cells 0 - 2 Urine Bacteria Occ Attending/Attestation - Attestation I have personally seen and examined this patient.: Yes I have fully participated in the care of the patient.: Yes I have reviewed all pertinent clinical information: Yes Notes (Text): 08/21/18 15:45 I have seen and examined patient with GI fellow. Agree with above documentation with the following additions. In brief, this is an 88 year old male with history of atrial fibrillation on coumadin, CHF, HTN, hyperlipidemia, hypot hyroidism who presents to hospital with complaint of progressive abdominal and chest discomfort which started 2 days ago. He reports RUQ, dull 5/10 intensity pain radiating to back which did not seem to be related to food consumption. He reports one episode of vomiting which has since resolved. He denies fever/chills, weight loss, rectal bleeding, or change in bowel habits. No prior endoscopic evaluation. Review of vitals from today shows elevated BP. Atrial fibrillation on coumadin CHF HTN Hypothyroidism Chest/abdominal pain - Diet as tolerated - LFTs normal, continue to monitor - Obtain RUQ abdominal US, r/o cholelithiasis - Begin once daily PPI therapy - Follow up cardiology recommendations - Patient would benefit from elective outpatient follow up, will continue to monitor patient clinical course
[2018-08-21] MEDS: Levothyroxine 50 MCG TAB PO SCH (13:05)
[2018-08-21 14:33] VITALS: O2SAT 97
--- NOTE | 2018-08-21 14:53 | HP ---
DATE OF EXAM: 08/21/2018 HISTORY OF PRESENT ILLNESS: I was called down to the ER to see Ricardo. 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 He came in with a chest pain midsternal, feeling epigastric and comes to the emergency room. PAST MEDICAL HISTORY: He has a past medical history of hypothyroid, hypertension, BPH, atrial fibrillation, CHF, pacemaker, gout. He has had hematuria. He is on Coumadin and he gets hematuria from time to time. Some bradycardia, has been asystole at one time in the past. FAMILY HISTORY: He has unknown family history. SOCIAL HISTORY: Never smoked. He does drink alcohol every now and then, but he told me he cut down. No substance abuse. ALLERGIES: NO KNOWN DRUG ALLERGIES. MEDICATIONS: He is on Imdur, lisinopril, Zyloprim, and Flomax. REVIEW OF SYSTEMS: No vision changes. No fevers. No ear issues. No hearing issues. No vision changes that are acute. No sore throat. No shortness of breath or cough. There is chest pain. No palpitations, it is resolved at this time. It was a sharp, no pressured. He had little abdominal pain, mid epigastric. No diarrhea or vomiting. No constipation or diarrhea. No problems urinating. Every now and then he sees a red-tinged urine. No back pain. No neck pain. No skin rashes that he knows of. No headache. No dizziness. Not nervous but anxious. PHYSICAL EXAMINATION: GENERAL: He is well appearing, nontoxic, comfortable at this time, alert and oriented x3. VITAL SIGNS: He has a 97.5 temp; 77 pulse; 18 respiratory rate; his blood pressure is quite high in the ER 200/101, it came down since then and 97% O2 sat. HEENT: Head is atraumatic, normocephalic. Extraocular muscles are intact. Pupils are reactive to light and accommodation. Throat is moist. NECK: Supple. HEART: Regular rate. Normal S1, S2. LUNGS: Decreased breath sounds bilaterally, but clear to auscultation. ABDOMEN: Soft and nontender. Positive bowel sounds. EXTREMITIES: No edema. NEUROLOGIC: GCS is 15. Cranial nerves II-XII grossly intact. Speech is normal. SKIN: Warm and dry. No apparent rashes or ulcers. Fair turgor. Alert and oriented x3. LABORATORY DATA: He had multiple tests done. He has urine which showed a little bit of blood. Too numerous to count from the Coumadin. A 139 sodium, potassium 4, BUN 23, creatinine 1.3, GFR is 62, sugar is 126, calcium is 8.8, Total bili is 0.8, AST is 41, ALT of 44 and alk phos 129. Lactate dehydrogenase is 468. Total creatine kinase is 63. Troponin I is 0.03. Total protein is 8, albumin is 4 and lipase is 140. INR is 1.86 on Coumadin. A 12.2 white count, 13.9 hemoglobin, 41.3 hematocrit, with 281 platelets. He is going to have a consult with Cardiology and Urology. He is on observation level of care. We will watch him overnight. Hopefully he will improve, put him back on his medications, little bit of IV fluids. Check his labs, physical therapy. Check his troponins. If he does well, he will be discharged tomorrow afternoon. Ricardo Sr who is here with chest pain, microscopic hematuria. Dieter Griggs DO MTDD
--- NOTE | 2018-08-21 17:08 | CON ---
DATE: 08/21/2018 CARDIOLOGY CONSULTATION HISTORY: The patient is an 88-year-old male with a history of pacemaker placement in the past as well as history of hypertension, who presents with lower back pain and epigastric discomfort. The patient is unclear about his previous cardiac history. In addition, [employer] is dysfunctional at this time and no past medical records are available. Currently, the patient is able to ambulate without symptoms. SOCIAL HISTORY: He denies active smoking. REVIEW OF SYSTEMS: Fourteen-point review of systems is dominated by lower back pain. No abdominal pain. No chest pain. No dyspnea noted. PHYSICAL EXAMINATION: VITAL SIGNS: Stable. NECK: Negative JVD. LUNGS: Without rales. HEART: Reveal S1, S2 without murmurs. EXTREMITIES: Without edema. DIAGNOSTIC DATA: EKG is a paced rhythm. LABORATORY DATA: Laboratories revealed one troponin that is negative. The rest of the laboratories are unavailable at this time. IMPRESSION: 1. Epigastric discomfort with lower back pain. 2. History of pacemaker placement. 3. Suspected dilated cardiomyopathy. 4. Questionable atrial fibrillation in the past. PLAN: Given these findings, we will need to obtain his old medical records. We will obtain serial troponins. If the patient has not had a stress test, we will arrange for an outpatient stress test in the later on this week or early next week. Maury Booker MD DATE: 08/21/2018 CARDIOLOGY CONSULTATION HISTORY: The patient is an 88-year-old male with a history of pacemaker placement in the past as well as history of hypertension, who presents with lower back pain and epigastric discomfort. The patient is unclear about his previous cardiac history. In addition, [employer] is dysfunctional at this time and no past medical records are available. Currently, the patient is able to ambulate without symptoms. SOCIAL HISTORY: He denies active smoking. REVIEW OF SYSTEMS: Fourteen-point review of systems is dominated by lower back pain. No abdominal pain. No chest pain. No dyspnea noted. PHYSICAL EXAMINATION: VITAL SIGNS: Stable. NECK: Negative JVD. LUNGS: Without rales. HEART: Reveal S1, S2 without murmurs. EXTREMITIES: Without edema. DIAGNOSTIC DATA: EKG is a paced rhythm. LABORATORY DATA: Laboratories revealed one troponin that is negative. The rest of the laboratories are unavailable at this time.
[2018-08-22] MEDS ORDERED: Pantoprazole 40 mg EC Tab PO SCH (06:00)
[2018-08-22 07:24] LABS: HEMOGLOBIN 12.1 g/dL (14.0-18.0); MEAN CELL VOLUME 99.2 fl (80.0-105.0); MEAN CORPUSCULAR HEMOGLOBIN 32.4 pg (25.0-35.0); MEAN CORPUSCULAR HGB CONC 32.7 g/dl (31.0-37.0); MEAN PLATELET VOLUME 10.5 fl (7.0-11.0); RBC 3.73 10^6/uL (3.5-6.1); RED CELL DISTRIBUTION WIDTH 15.3 % (11.5-14.5); WHITE BLOOD COUNT 11.6 10^3/uL (4.5-11.0)
[2018-08-22 07:47] LABS: ALBUMIN 3.4 g/dL (3.0-4.8); CALCIUM 8.4 mg/dL (8.4-10.5)
--- NOTE | 2018-08-22 09:00 | CP.PCM.PN ---
Subjective - Date & Time of Evaluation Date of Evaluation: 08/22/18 Time of Evaluation: 07:55 - Subjective Subjective: PGY-4 GI Fellow Consult Note Pt lying in bed when seen this AM. States he is doing well w/o any complaints. Denied CP, Abd Pain, N/V. 5 point ROS negative other than stated above Objective - Vital Signs/Intake and Output Vital Signs (last 24 hours): Temp Pulse Resp BP Pulse Ox 99.2 F 65 18 154/64 H 97 08/21/18 17:37 08/22/18 06:00 08/21/18 17:37 08/21/18 17:41 08/21/18 14:16 Intake and Output: 08/22/18 08/22/18 06:59 18:59 Intake Total 300 Balance 300 - Medications Medications: Current Medications Amlodipine Besylate (Norvasc) 5 mg PO DAILY [facility] Last Admin: 08/21/18 14:25 Dose: 5 mg Clonidine HCl (Catapres) 0.1 mg PO BID [facility] Last Admin: 08/21/18 17:41 Dose: 0.1 mg Famotidine (Pepcid) 20 mg PO 1000,2200 [facility] Last Admin: 08/22/18 06:29 Dose: 20 mg Furosemide (Lasix) 40 mg PO DAILY [facility] Last Admin: 08/21/18 13:05 Dose: 40 mg Isosorbide Mononitrate (Imdur) 60 mg PO DAILY [facility] Last Admin: 08/21/18 13:05 Dose: 60 mg Levothyroxine Sodium (Synthroid) 50 mcg PO DAILY [facility] Last Admin: 08/21/18 13:05 Dose: 50 mcg Lisinopril (Zestril) 20 mg PO DAILY [facility] Last Admin: 08/21/18 13:05 Dose: 20 mg Metoprolol Tartrate (Lopressor) 50 mg PO BID [facility] Last Admin: 08/21/18 17:41 Dose: 50 mg Morphine Sulfate (Morphine) 1 mg IVP Q3H PRN PRN Reason: Pain, severe (8-10) Pantoprazole Sodium (Protonix Ec Tab) 40 mg PO 0600 [facility] Last Admin: 08/22/18 06:29 Dose: 40 mg Tamsulosin HCl (Flomax) 0.4 mg PO DAILY [facility] Last Admin: 08/21/18 13:05 Dose: 0.4 mg Warfarin Sodium (Coumadin) 4 mg PO 1800 [facility] Last Admin: 08/21/18 17:41 Dose: 4 mg - Labs Labs: 08/22/18 06:45 08/22/18 06:45 PT 21.5 SECONDS (9.4-12.5) H 08/21/18 04:35 INR 1.86 08/21/18 04:35 APTT 40.7 Seconds (25.1-36.5) H 08/21/18 04:35 - Constitutional Appears: Well, No Acute Distress - Head Exam Head Exam: ATRAUMATIC, NORMAL INSPECTION - Eye Exam Eye Exam: EOMI. absent: Scleral icterus - ENT Exam ENT Exam: Mucous Membranes Moist. absent: Mucous Membranes Dry - Respiratory Exam Respiratory Exam: NORMAL BREATHING PATTERN. absent: Accessory Muscle Use, Respiratory Distress - GI/Abdominal Exam GI & Abdominal Exam: Soft, Normal Bowel Sounds. absent: Bruit, Distended, Firm, Guarding, Rigid, Tenderness, Mass, Organomegaly, Pulsatile Mass, Rebound Assessment and Plan - Assessment and Plan (Free Text) Assessment: 88 yo Hisp Male with Afib, HTN, HLD presenting with CP, Abd Pain and back pain. # Abd Pain: Improved. Denied any symptoms during encounter. Acute onset and resolution, though received pain medication. Exam and labs unremarkable. No prior endoscopic evaluations. Plan: - Abd US prelim read with fatty liver, cholelithiasis (no obstruction), mild ascites? (not clinically apparent if so) - Pantoprazole 40 mg PO QD - Monitor labs - Cont heart healthy diet, no planned procedures - Consider outpatient EGD/CSPY if within goals of care Pt discussed with Dr. Corrales; please see attestation for further recs/changes.
[2018-08-22] MEDS ORDERED: Potassium Chloride 20 mEq ER Tab PO ONE (09:34)
--- NOTE | 2018-08-22 09:34 | US ---
Date of service: 08/21/2018 HISTORY: Abdominal pain COMPARISON: None. TECHNIQUE: Grayscale imaging was performed. FINDINGS: LIVER: Measures 16.4 cm. There is diffuse increased echogenicity of the liver parenchyma with coarse echotexture. No mass. No intrahepatic bile duct dilatation. GALLBLADDER: There are multiple gallstones. No wall thickening or pericholecystic fluid. The sonographic Torres's sign is negative COMMON BILE DUCT: Measures mm. No stones. No dilatation. PANCREAS: Unremarkable as visualized. No mass. No ductal dilatation. RIGHT KIDNEY: Measures 10.1cm. Normal echogenicity. No calculus, mass, or hydronephrosis. There is a 2.0 x 1.0 x 1.3 cm simple cyst in the upper pole. LEFT KIDNEY: Measures 11.0cm. Normal echogenicity. No calculus, mass, or hydronephrosis. There is a 4.1 x 3.4 x 3.7 cm simple cyst in the lower pole and 1.0 x 0.8 x 1.0 cm simple cyst in the upper pole. SPLEEN: Normal in size and contour. No mass. AORTA: No aneurysmal dilatation. IVC: Unremarkable. OTHER FINDINGS: None. IMPRESSION: Mild hepatomegaly. Diffuse increased echogenicity in the liver may reflect hepatic steatosis however parenchymal infectious/ inflammatory etiologies cannot be entirely excluded. Clinical and laboratory correlation is advised. Cholelithiasis. No biliary dilatation.
--- NOTE | 2018-08-22 12:07 | PN ---
DATE: 08/22/2018 SUBJECTIVE: The patient's epigastric discomfort and back pain are better. PHYSICAL EXAMINATION: VITAL SIGNS: Blood pressure 154/64, the heart rate is in the 60s. NECK: Negative JVD. LUNGS: Without rales. HEART: S1, S2. EXTREMITIES: Without edema. LABORATORY DATA: The troponin is 0.06 and 0.06. BUN and creatinine are unremarkable. IMPRESSION: 1. Improvement of his epigastric symptoms. 2. Indeterminate troponins, unclear. He has a history of pacemaker as well as a dilated cardiomyopathy. Given these findings, the patient's atrial fibrillation is under control. His INR is 1.86. From a cardiac perspective, he can be discharged. We will arrange for an outpatient stress test next week. Maury Booker MD
[2018-08-22 12:55] VITALS: BP 103/51
[2018-08-22] MEDS: Levothyroxine 50 MCG TAB PO SCH (13:06)
[2018-08-22 13:21] VITALS: PULSE 61; RESP 20; TEMP 97.8
--- NOTE | 2018-08-22 16:31 | PCM.URO ---
Urology Progress Note - Objective Lab Studies: Reviewed (plans to be discussed) Lab Results Last 24 Hours: Laboratory Results - last 24 hr 08/21/18 08/22/18 08/22/18 21:30 06:45 06:45 WBC 11.6 H RBC 3.73 Hgb 12.1 L Hct 37.0 L MCV 99.2 MCH 32.4 MCHC 32.7 RDW 15.3 H Plt Count 266 MPV 10.5 Sodium 138 Potassium 3.4 L Chloride 101 Carbon Dioxide 31 Anion Gap 10 BUN 23 H Creatinine 1.4 Est GFR ( Amer) 58 Est GFR (Non-Af Amer) 48 Random Glucose 87 Calcium 8.4 Total Bilirubin 0.8 AST 40 ALT 39 Alkaline Phosphatase 105 Troponin I 0.06 Total Protein 6.6 Albumin 3.4 Globulin 3.3 Albumin/Globulin Ratio 1.0 L Intake & Output: Intake & Output 08/21/18 08/22/18 08/22/18 18:59 06:59 18:59 Intake Total 900 300 Balance 900 300 Weight 225 lb 225 lb 3.2 oz 173 lb Intake: Oral 900 300 Other: Voiding Method Urinal # Voids Urine, Voided 3 2 # Bowel Movements 0 0 Vital Signs: Vital Signs - 24 hr 08/21/18 08/21/18 08/21/18 17:37 17:41 22:00 Temperature 99.2 F Pulse Rate 75 74 74 Respiratory 18 Rate Blood Pressure 169/90 H 154/64 H 08/22/18 08/22/18 08/22/18 00:01 02:00 06:00 Temperature Pulse Rate 63 65 Respiratory Rate Blood Pressure 102/49 L 93/50 L 08/22/18 08/22/18 10:05 12:00 Temperature 97.8 F Pulse Rate 61 Respiratory 20 Rate Blood Pressure 95/51 L 103/51 L
--- NOTE | 2018-08-22 20:56 | DS ---
HISTORY OF PRESENT ILLNESS: He is resting comfortably in bed. No more chest pain. No more abdominal pain. He is urinating better. He is on Catapres, Coumadin, Flomax, Imdur, potassium, Lasix, Lopressor, nitroglycerin ointment, Norvasc, Pepcid, Protonix, Synthroid, Zestril, and Zofran. PHYSICAL EXAMINATION: GENERAL: He is alert, comfortable, no complaints. Eating his breakfast, walking around the room. Good spirits. VITAL SIGNS: 99.2 temp, 74 pulse, 154/64 blood pressure, 18 respiratory rate, and 97% O2 sat on room air. HEENT: His head is atraumatic and normocephalic. HEART: Regular rate. LUNGS: Decreased breath sounds, but clear. ABDOMEN: Soft and nontender. Positive bowel sounds. EXTREMITIES: No edema. LABORATORY DATA: He has a urine, which has lots of red cells. potassium is 3.4, given potassium this morning. Sodium is 138, BUN is 23, creatinine is 1.4, GFR is 48, sugar is 87, calcium is 8.4, and total bili is 0.8. AST is 40, ALT is 39, alk phos is 105, and his troponin is 0.06. ASSESSMENT AND PLAN: Discussed with Dr. Booker, he said he can go home. Total protein is 6.6. INR is 1.86, on Coumadin. White count is down to 11.6, hemoglobin is 12.1, hematocrit 37, and platelets are 266. He will be going home on his medicines call him into the pharmacy, I will do a house call on him next week. He was here for chest pain. He is on observation level of care. He has microscopic hematuria, on Coumadin and going to Dr. Momin on the outpatient. Noncardiac chest pain. Dieter Griggs DO MTDNeo
== END 2018-08-22 16:40 | disposition home or self-care (01) ==
LOC: ED 04:18 → ERH 06:10 → 2RNO 08:18
PROVIDERS: ADMIT Family Medicine; ATTEND Family Medicine
DX: R31.29 Other microscopic hematuria (principal); R07.9 Chest pain, unspecified; N40.0 Benign prostatic hyperplasia without lower urinary tract symptoms; I11.0 Hypertensive heart disease with heart failure; I50.9 Heart failure, unspecified; I42.0 Dilated cardiomyopathy; E03.9 Hypothyroidism, unspecified; I48.91 Unspecified atrial fibrillation; Z79.01 Long term (current) use of anticoagulants; E78.5 Hyperlipidemia, unspecified; M54.5 Low back pain; Z95.0 Presence of cardiac pacemaker
CPT/HCPCS: 36415; 71045; 76700; 80053; 81001; 82550; 83615; 83690; 84484; 85027; 85610; 85730; 93005; 96374; 97161; 99285; G0378; G8978; G8979; J2270; J2405

== ENCOUNTER 2018-08-24 14:37 | Inpatient (IN) | payer MEDICARE, MEDICAID ==
[2018-08-24 14:37] VITALS: PULSE 62; BMI 30.5
--- NOTE | 2018-08-24 15:47 | ED PDOC ---
Arrival/HPI - History of Present Illness Narrative History of Present Illness (Text): 08/24/18 15:42 88 y/o kiswahili speaking M with PMHx of Afib on coumadin, CHF, DM, BPH, HTN presents to ED with complaints of 10/10 severity constant RLQ, epigastric and LLQ abdominal pain that has been ongoing since this morning which is not aggravated/alleviated with anything in particular. He reports he was able tolerate eggs for breakfast, and reports no associated n/v/c/d. He reports no acute urinary symptoms or flank pain. He denies fevers, chills, dizziness, bowel incontinence, colicky pain, hematuria. Time/Duration: Prior to Arrival Symptom Onset: Gradual Symptom Course: Unchanged Severity Level: 10 Context: Sitting <Darío Samaniego - Last Filed: 08/24/18 19:08> <Sohan Vance - Last Filed: 08/25/18 12:16> - General Chief Complaint: Abdominal Pain Time Seen by Provider: 08/24/18 14:39 Past Medical History - Provider Review Nursing Documentation Reviewed: Yes - Infectious Disease Hx of Infectious Diseases: None - Tetanus Immunization Tetanus Immunization: Unknown - Cardiac Hx Cardiac Disorders: Yes (Afib, pacemaker) - Pulmonary Hx Respiratory Disorders: No - Neurological Hx Neurological Disorder: No - HEENT Hx HEENT Disorder: No - Renal Hx Renal Disorder: No - Endocrine/Metabolic Hx Endocrine Disorders: Yes Hx Hypothyroidism: Yes - Hematological/Oncological Hx Blood Disorders: No Hx Blood Transfusions: No Hx Blood Transfusion Reaction: (NA) - Integumentary Hx Dermatological Disorder: No - Musculoskeletal/Rheumatological Hx Musculoskeletal Disorders: Yes - Gastrointestinal Hx Gastrointestinal Disorders: No - Genitourinary/Gynecological Hx Genitourinary Disorders: Yes Hx Hematuria: Yes - Psychiatric Hx Psychophysiologic Disorder: No Hx Substance Use: No - Past Surgical History Past Surgical History: No Previous - Surgical History Hx Appendectomy: Yes Hx Orthopedic Surgery: Yes (r knee sx) Other/Comment: cysto 03/14/18 to evacuate clots, dx gross hematuria bleeding from prostate dr sosa - Anesthesia Hx Anesthesia: Yes Hx Anesthesia Reactions: Yes (bradycardia, asystole) Hx Malignant Hyperthermia: No - Suicidal Assessment Feels Threatened In Home Enviroment: No <Darío Samaniego - Last Filed: 08/24/18 19:08> Family/Social History - Physician Review Nursing Documentation Reviewed: Yes Family/Social History: Unknown Family HX Smoking Status: Never Smoked Hx Alcohol Use: No Hx Substance Use: No Hx Substance Use Treatment: No <Darío Samaniego - Last Filed: 08/24/18 19:08> Allergies/Home Meds <Daíro Samaniego - Last Filed: 08/24/18 19:08> <Sohan Vance - Last Filed: 08/25/18 12:16> Allergies/Adverse Reactions: Allergies No Known Allergies Allergy (Verified 08/21/18 04:22) Home Medications: Home Meds Medication Instructions Recorded Confirmed RX: Isosorbide Mononitrate 1 tab PO DAILY 04/01/16 08/21/18 [Isosorbide Mononitrate ER] RX: Lisinopril 20 mg PO DAILY 04/01/16 08/21/18 RX: Tamsulosin [Flomax] 0.4 mg PO DAILY 04/19/18 08/24/18 Review of Systems - Review of Systems Constitutional: Normal Eyes: Normal ENT: Normal Respiratory: Normal Cardiovascular: Normal Gastrointestinal: Abdominal Pain. absent: Constipation, Diarrhea, Nausea, Vomiting Genitourinary Male: Normal. absent: Hematuria Musculoskeletal: Normal Skin: Normal Neurological: Normal Endocrine: Normal Hemo/Lymphatic: Normal Psychiatric: Normal <Darío Samaniego - Last Filed: 08/24/18 19:08> Physical Exam Vital Signs Reviewed: Yes Vital Signs Temp Pulse Resp BP Pulse Ox 08/24/18 14:54 98 F 62 18 158/76 H 99 08/24/18 14:52 97.2 F L 66 18 158/76 H 98 Temperature: Afebrile Blood Pressure: Hypertensive Pulse: Regular Respiratory Rate: Normal Appearance: Positive for: Well-Appearing, Non-Toxic, Comfortable Pain Distress: None Mental Status: Positive for: Alert and Oriented X 3 - Systems Exam Head: Present: Atraumatic, Normocephalic Pupils: Present: PERRL Extroacular Muscles: Present: EOMI Conjunctiva: Present: Normal Mouth: Present: Moist Mucous Membranes Neck: Present: Normal Range of Motion Respiratory/Chest: Present: Clear to Auscultation, Good Air Exchange. No: Respiratory Distress, Accessory Muscle Use Cardiovascular: Present: Regular Rate and Rhythm, Normal S1, S2. No: Murmurs Abdomen: Present: Tenderness (RLQ/LLQ ). No: Distention, Peritoneal Signs, Rebound, Guarding Back: Present: Normal Inspection Upper Extremity: Present: Normal Inspection. No: Cyanosis, Edema Lower Extremity: Present: Normal Inspection. No: Edema Neurological: Present: GCS=15, CN II-XII Intact, Speech Normal Skin: Present: Warm, Dry, Normal Color. No: Rashes Psychiatric: Present: Alert, Oriented x 3, Normal Insight, Normal Concentration <Darío Samaniego - Last Filed: 08/24/18 19:08> Vital Signs Temp Pulse Resp BP Pulse Ox 08/25/18 01:00 61 18 131/67 98 08/24/18 23:51 60 18 133/53 L 94 L 08/24/18 20:23 71 18 137/55 L 92 L 08/24/18 18:51 98 F 85 19 154/73 H 98 08/24/18 16:37 98 F 62 08/24/18 14:54 98 F 62 18 158/76 H 99 08/24/18 14:52 97.2 F L 66 18 158/76 H 98 <Sohan Vance - Last Filed: 08/25/18 12:16> Medical Decision Making ED Course and Treatment: 08/24/18 15:49 Impression: 88 y/o M with PMhx of Afib on coumadin, CHF, HTN, DM, Hypothyroidism, BPH presents to ED with complaints of 10/10 constant epigastric & RLQ/LLQ abdominal thats been ongoing since this am. Prior visit notes and results were reviewed Differential diagnosis includes but is not limited to: Colitis Bladder mass Plan: Labs U/A CT Abd w/ IV contrast Reassess & Dispo Progress Notes: 08/24/18 19:08 Case signed out to Dr. Villanueva. Informed of pending results - RAD Interpretation Radiology Orders: 08/24/18 15:41 ABD & PELVIS IV CONTRAST ONLY [CT] Stat <Darío Samaniego - Last Filed: 08/24/18 19:08> ED Course and Treatment: Seen and examined with resident. 88 y/o M p/w abdominal pain. On exam, RLQ/LLQ tenderness. Pending CT. Signed out to ED night team. - Lab Interpretations Lab Results: 08/24/18 15:55 08/24/18 15:55 Lab Results 08/24/18 16:38: Urine Color Yellow, Urine Appearance Sl cloudy, Urine pH 6.5, Ur Specific [place] 1.020, Urine Protein 30 H, Urine Glucose (UA) Negative, Urine Ketones Negative, Urine Blood Large H, Urine Nitrate Negative, Urine Bilirubin Negative, Urine Urobilinogen 0.2, Ur Leukocyte Esterase Trace H, Urine RBC Tntc H, Urine WBC 2 - 5, Ur Epithelial Cells 0 - 2, Urine Bacteria Small 08/24/18 15:55: Influenza Typ A,B (EIA) Negative for flu a/b 08/24/18 15:55: Sodium 138, Potassium 4.4, Chloride 101, Carbon Dioxide 31, Anion Gap 10, BUN 22 H, Creatinine 1.5, Est GFR ( Amer) 53, Est GFR (Non- Af Amer) 44, Random Glucose 109, Calcium 8.7, Total Bilirubin 0.8, AST 49, ALT 46, Alkaline Phosphatase 129 H D, Total Protein 7.7, Albumin 3.7, Globulin 4.0, Albumin/Globulin Ratio 0.9 L, Lipase 42 08/24/18 15:55: WBC 13.7 H, RBC 3.91, Hgb 12.8 L, Hct 38.8 L, MCV 99.2, MCH 32.7, MCHC 33.0, RDW 15.1 H, Plt Count 303, MPV 10.4, Gran % 72.2 H, Lymph % (Auto) 10.9 L, [place] % (Auto) 15.4 H, Eos % (Auto) 1.4 L, Baso % (Auto) 0.1, Gran # 9.91 H, Lymph # (Auto) 1.5, [place] # (Auto) 2.1 H, Eos # (Auto) 0.2, Baso # (Au to) 0.02 - RAD Interpretation Radiology Orders: 08/24/18 15:41 ABD & PELVIS IV CONTRAST ONLY [CT] Stat - Medication Orders Current Medication Orders: Furosemide (Lasix) 40 mg IVP DAILY [facility] Cefoxitin Sodium 2 gm/ Sodium (Chloride) 100 mls @ 100 mls/hr IV Q8H [facility]; Protocol Last Admin: 08/25/18 09:00 Dose: 100 mls/hr eMAR Start Stop Document 08/25/18 09:[address] [facility] (Rec: 08/25/18 09:00 [id number]) Intravenous Solution Start Date 08/25/18 Start Time 09:00 End Date 08/25/18 End time 10:00 Total Infusion Time 60 Metronidazole (Flagyl) 500 mg in 100 mls @ 100 mls/hr IVPB Q8 [facility]; Protocol Last Admin: 08/25/18 10:51 Dose: 100 mls/hr eMAR Start Stop Document 08/25/18 10:[address] [facility] (Rec: 08/25/18 10:51 [id number]) Intravenous Solution Start Date 08/25/18 Start Time 10:51 End Date 08/25/18 End time 11:55 Total Infusion Time 64 Lactated Ringer's (Lactated Ringer's) 1,000 mls @ 115 mls/hr IV .Q8H42M [facility] Sodium Chloride (Sodium Chloride 0.45%) 1,000 mls @ 40 mls/hr IV .Q24H [facility] Insulin Human Regular (Humulin R Med) 0 units SC ACHS [facility]; Protocol Ketorolac Tromethamine (Toradol) 30 mg IVP Q6 PRN PRN Reason: Pain, moderate (4-7) Morphine Sulfate (Morphine) 4 mg IVP Q4H PRN PRN Reason: Pain, severe (8-10) Morphine Sulfate (Morphine) 2 mg IVP Q4H PRN PRN Reason: Anxiety Discontinued Medications Acetaminophen (Tylenol 325mg Tab) 650 mg PO STAT STA Stop: 08/24/18 18:58 Last Admin: 08/24/18 19:08 Dose: 650 mg MAR Pain/Vitals Document 08/24/18 19:08 I (Rec: 08/24/18 19:09 [id number] Pain Reassessment Is This A Pain ReAssessment? Yes Sleep Is patient sleeping during reassessment? No Presence of Pain Presence of Pain Yes Pain Scale Used Protocol: PSCALES Pain Scale Used Numeric Location Pain Location Body Site Abdomen Description Intermittent Intensity 5 Scale Used Numeric Pain Behavior Facial Grimacing Sodium Chloride (Sodium Chloride 0.9%) 1,000 mls @ 250 mls/hr IV .Q4H STA Stop: 08/24/18 20:38 Last Admin: 08/24/18 17:00 Dose: 250 mls/hr eMAR Start Stop Document 08/24/18 17:00 GMI (Rec: 08/24/18 17:01 [id number] Intravenous Solution Start Date 08/24/18 Start Time 17:00 End Date 08/24/18 End time 18:00 Total Infusion Time 60 Piperacillin Sod/Tazobactam Sod (Zosyn 4.5 Gm In Ns 100ml) 4.5 gm in 100 mls @ 200 mls/hr IVPB STAT STA; Protocol Stop: 08/24/18 23:56 Last Admin: 08/24/18 23:49 Dose: 200 mls/hr eMAR Start Stop Document 08/24/18 23:49 CNR (Rec: 08/24/18 23:49 [id number] Intravenous Solution Start Date 08/24/18 Start Time 23:49 End Date 08/25/18 End time 00:19 Total Infusion Time 30 Vancomycin HCl (Vancomycin 1gm) 1 gm in 250 mls @ 167 mls/hr IVPB STAT STA; Protocol Stop: 08/25/18 00:56 Last Admin: 08/25/18 00:55 Dose: 167 mls/hr eMAR Start Stop Document 08/25/18 00:55 CNR (Rec: 08/25/18 00:57 [id number] Intravenous Solution Start Date 08/25/18 Start Time 00:57 Influenza Virus Vaccine (Flucelvax Quad [id number] Syr) 60 mcg IM .ONCE ONE Stop: 08/25/18 04:57 Phytonadione (Vitamin K Inj) 10 mg SC ONCE STA Stop: 08/25/18 11:49 Pneumococcal Polyvalent Vaccine (Pneumovax 23 Vaccine) 0.5 ml IM .ONCE ONE Stop: 08/25/18 04:57 <Sohan Vance - Last Filed: 08/25/18 12:16> - PA / BEHAVIOR ANALYST / Resident Statement / has reviewed & agrees with the documentation as recorded. / has examined the patient and agrees with the treatment plan. <Darío Samaniego - Last Filed: 08/24/18 19:08> Disposition/Present on Arrival - Present on Arrival Any Indicators Present on Arrival: No History of DVT/PE: No History of Uncontrolled Diabetes: No Urinary Catheter: No History of Decub. Ulcer: No History Surgical Site Infection Following: None - Disposition Have Diagnosis and Disposition been Completed?: No Disposition Time: 19:08 <Darío Samaniego - Last Filed: 08/24/18 19:08> <Sohan Vance - Last Filed: 08/25/18 12:16> - Disposition Diagnosis: Cholecystitis, Cholelithiasis Disposition: HOSPITALIZED Condition: FAIR
[2018-08-24 16:07] LABS: BASO # 0.02 K/mm3 (0.0-2.0); BASO % 0.1 % (0.0-3.0); EOS # 0.2 (0.0-0.7); EOS % 1.4 % (1.5-5.0); GRAN # 9.91 (1.4-6.5); GRAN % 72.2 % (50.0-68.0); HEMOGLOBIN 12.8 g/dL (14.0-18.0); LYMPH # 1.5 (1.2-3.4); LYMPH % 10.9 % (22.0-35.0); MEAN CELL VOLUME 99.2 fl (80.0-105.0); MEAN CORPUSCULAR HEMOGLOBIN 32.7 pg (25.0-35.0); MEAN PLATELET VOLUME 10.4 fl (7.0-11.0); MONO # 2.1 (0.1-0.6); MONO % 15.4 % (1.0-6.0); RBC 3.91 10^6/uL (3.5-6.1); RED CELL DISTRIBUTION WIDTH 15.1 % (11.5-14.5); WHITE BLOOD COUNT 13.7 10^3/uL (4.5-11.0)
[2018-08-24 16:20] LABS: ALB/GLOB RATIO 0.9 (1.1-1.8); ALBUMIN 3.7 g/dL (3.0-4.8); CALCIUM 8.7 mg/dL (8.4-10.5)
[2018-08-24] MEDS ORDERED: Sodium Chloride 0.9% 1,000 ML IV STA (16:39)
[2018-08-24 16:43] LABS: PH,URINE 6.5 (4.7-8.0); URINE BILIRUBIN NEGATIVE (NEGATIVE); URINE BLOOD LARGE (NEGATIVE); URINE GLUCOSE (UA) NEGATIVE (NEGATIVE); URINE LEUKOCYTE ESTERASE TRACE Leu/uL (NEGATIVE); URINE PROTEIN 30 mg/dL (<30 mg/dL); URINE UROBILINOGEN 0.2 E.U./dL (<1 E.U./dL)
[2018-08-24 16:45] LABS: URINE APPEARANCE SL CLOUDY (CLEAR); URINE COLOR YELLOW (YELLOW)
[2018-08-24 17:03] LABS: URINE RBC TNTC /hpf (0-2)
[2018-08-24 17:04] LABS: URINE BACTERIA SMALL /hpf; URINE EPITHELIAL CELLS 0 - 2 /hpf (0-5)
--- NOTE | 2018-08-24 19:08 | ED PDOC ---
Physical Exam Vital Signs Temp Pulse Resp BP Pulse Ox 08/24/18 18:51 98 F 85 19 154/73 H 98 08/24/18 16:37 98 F 62 08/24/18 14:54 98 F 62 18 158/76 H 99 08/24/18 14:52 97.2 F L 66 18 158/76 H 98 Medical Decision Making ED Course and Treatment: 08/24/18 19:07 Case endorsed to me by Dr. Vance, pending CT abdomen and disposition. 08/24/18 23:28 Leukocytosis of [address] a/p shows cholecystitis with choleithiasis. Zosyn and vancomycin ordered. Call placed to Dr. Griggs(PCP). 08/25/18 00:[address] Griggs who requested Drs. Ledesma(infectious disease), Antoni(GI) & Torey(surgeon). - Lab Interpretations Lab Results: 08/24/18 15:55 08/24/18 15:55 Lab Results 08/24/18 16:38: Urine Color Yellow, Urine Appearance Sl cloudy, Urine pH 6.5, Ur Specific [place] 1.020, Urine Protein 30 H, Urine Glucose (UA) Negative, Urine Ketones Negative, Urine Blood Large H, Urine Nitrate Negative, Urine Bilirubin Negative, Urine Urobilinogen 0.2, Ur Leukocyte Esterase Trace H, Urine RBC Tntc H, Urine WBC 2 - 5, Ur Epithelial Cells 0 - 2, Urine Bacteria Small 08/24/18 15:55: Influenza Typ A,B (EIA) Negative for flu a/b 08/24/18 15:55: Sodium 138, Potassium 4.4, Chloride 101, Carbon Dioxide 31, Anion Gap 10, BUN 22 H, Creatinine 1.5, Est GFR ( Amer) 53, Est GFR (Non- Af Amer) 44, Random Glucose 109, Calcium 8.7, Total Bilirubin 0.8, AST 49, ALT 46, Alkaline Phosphatase 129 H D, Total Protein 7.7, Albumin 3.7, Globulin 4.0, Albumin/Globulin Ratio 0.9 L, Lipase 42 08/24/18 15:55: WBC 13.7 H, RBC 3.91, Hgb 12.8 L, Hct 38.8 L, MCV 99.2, MCH 32.7, MCHC 33.0, RDW 15.1 H, Plt Count 303, MPV 10.4, Gran % 72.2 H, Lymph % (Auto) 10.9 L, [place] % (Auto) 15.4 H, Eos % (Auto) 1.4 L, Baso % (Auto) 0.1, Gran # 9.91 H, Lymph # (Auto) 1.5, [place] # (Auto) 2.1 H, Eos # (Auto) 0.2, Baso # (Auto) 0.02 I have reviewed the lab results: Yes - RAD Interpretation Radiology Orders: 08/24/18 15:41 ABD & PELVIS IV CONTRAST ONLY [CT] Stat - Medication Orders Current Medication Orders: Sodium Chloride (Sodium Chloride 0.9%) 1,000 mls @ 250 mls/hr IV .Q4H STA Stop: 08/24/18 20:38 Last Admin: 08/24/18 17:00 Dose: 250 mls/hr eMAR Start Stop Document 08/24/18 17:00 GMI (Rec: 08/24/18 17:01 [id number] Intravenous Solution Start Date 08/24/18 Start Time 17:00 End Date 08/24/18 End time 18:00 Total Infusion Time 60 Discontinued Medications Acetaminophen (Tylenol 325mg Tab) 650 mg PO STAT STA Stop: 08/24/18 18:58 Disposition/Present on Arrival - Present on Arrival Any Indicators Present on Arrival: No History of DVT/PE: No History of Uncontrolled Diabetes: No Urinary Catheter: No History of Decub. Ulcer: No History Surgical Site Infection Following: None - Disposition Have Diagnosis and Disposition been Completed?: Yes Diagnosis: Cholecystitis, Cholelithiasis Disposition: HOSPITALIZED Disposition Time: 23:34 Patient Plan: Admission Patient Problems: Current Active Problems Problem Status Onset Cholecystitis Acute Cholelithiasis Acute Condition: FAIR
[2018-08-24] MEDS ORDERED: Iohexol 350 MG/100 ML VIAL ONE (19:24)
[2018-08-24] MEDS ORDERED: Vancomycin 1gm in NS 250ml 1 GM/250 ML BAG IVPB STA (23:27)
[2018-08-24] MEDS ORDERED: Piperacill/Tazo 4.5gm in NS 4.5 GM/100 ML BAG IVPB STA (23:27)
--- NOTE | 2018-08-25 00:25 | CP.PCM.PN ---
Subjective - Date & Time of Evaluation Date of Evaluation: 08/25/18 Time of Evaluation: 00:24 - Subjective Subjective: Surgery consult note- Dr. Lema Reason for consult: cholelithiasis vs acute cholecystitis 88M pmhx significant for A.Fib on coumadin, pacemaker, aortic insufficiency, ckd presents to [facility] ED right sided abdominal pain localized to RUQain over the last week, and was worse yesterday. Denies associated nausea, vomiting. States normal BM, and passing flatus. Denies Describes pain as sharp with no alleviating factors. Denies foreign travel, recent sick contact, changes in urinary habits, BRBPR PMH: stated above PSH: hernia repair ALL: NKDA SocialHx: denies tobacco, etoh recreational drug use Objective - Vital Signs/Intake and Output Vital Signs (last 24 hours): Temp Pulse Resp BP Pulse Ox 98 F 60 18 133/53 L 94 L 08/24/18 18:51 08/24/18 23:51 08/24/18 23:51 08/24/18 23:51 08/24/18 23:51 - Medications Medications: Current Medications Vancomycin HCl (Vancomycin 1gm) 1 gm in 250 mls @ 167 mls/hr IVPB STAT STA; Protocol Stop: 08/25/18 00:56 - Labs Labs: 08/24/18 15:55 08/24/18 15:55 - Constitutional Appears: Non-toxic, No Acute Distress - Head Exam Head Exam: ATRAUMATIC - Eye Exam Eye Exam: EOMI. absent: Scleral icterus - ENT Exam ENT Exam: Mucous Membranes Moist - Respiratory Exam Respiratory Exam: NORMAL BREATHING PATTERN. absent: Accessory Muscle Use, Respiratory Distress - Cardiovascular Exam Cardiovascular Exam: +S1, +S2. absent: Bradycardia, Tachycardia - GI/Abdominal Exam GI & Abdominal Exam: Soft, Tenderness (tender to deep palpation in RUQ), Organomegaly (palpable liver below costal margin). absent: Distended, Firm, Guarding, Rigid - Neurological Exam Neurological Exam: Alert, Awake, Oriented x3 - Psychiatric Exam Psychiatric exam: Normal Affect - Skin Skin Exam: Intact, Warm Assessment and Plan - Assessment and Plan (Free Text) Assessment: 88M w/ Acute cholecystitis Plan: NPO after MN pain control PRN Need primary and medical clearance prior to any surgical intervention antiemetic serial abdominal exams IVF/Abx f/u AM Labs further recs [facility] Dr[facility]
--- NOTE | 2018-08-25 01:18 | CP.PCM.CON ---
History of Present Illness - History of Present Illness History of Present Illness: Surgery Consult Note- Dr. Lema Surgery consult note- Dr. Lema Reason for consult: cholelithiasis vs acute cholecystitis 88M pmhx significant for A.Fib on coumadin, pacemaker, aortic insufficiency, ckd [place] [facility] [place] sided abdominal pain localized to RUQ pain over the last week, and was worse yesterday. Denies associated nausea, vomiting. States normal BM, and passing flatus. Denies Describes pain as sharp with no alleviating factors. Denies foreign travel, recent sick contact, changes in urinary habits, BRBPR While in the ED found to have Right Inguinal hernia that was easily reducible PMH: stated above PSH: RIH repair ALL: NKDA SocialHx: denies tobacco, etoh recreational drug use Review of Systems - Review of Systems All systems: reviewed and no additional remarkable complaints except - Constitutional Constitutional: As Per HPI Past Patient History - Infectious Disease Hx of Infectious Diseases: None - Tetanus Immunizations Tetanus Immunization: Unknown - Past Social History Smoking Status: Never Smoked - CARDIAC Hx Cardiac Disorders: Yes (Afib, pacemaker) - PULMONARY Hx Respiratory Disorders: No - NEUROLOGICAL Hx Neurological Disorder: No - HEENT Hx HEENT Problems: No - RENAL Hx Chronic Kidney Disease: No - ENDOCRINE/METABOLIC Hx Endocrine Disorders: Yes Hx Hypothyroidism: Yes - HEMATOLOGICAL/ONCOLOGICAL Hx Blood Disorders: No Hx Blood Transfusions: No Hx Blood Transfusion Reaction: (NA) - INTEGUMENTARY Hx Dermatological Problems: No - MUSCULOSKELETAL/RHEUMATOLOGICAL Hx Musculoskeletal Disorders: Yes - GASTROINTESTINAL Hx Gastrointestinal Disorders: No - GENITOURINARY/GYNECOLOGICAL Hx Genitourinary Disorders: Yes Hx Hematuria: Yes - PSYCHIATRIC Hx Psychophysiologic Disorder: No Hx Substance Use: No - SURGICAL HISTORY Hx Appendectomy: Yes Hx Orthopedic Surgery: Yes (r knee sx) Other/Comment: cysto 03/14/18 to evacuate clots, dx gross hematuria bleeding from prostate dr sosa - ANESTHESIA Hx Anesthesia: Yes Hx Anesthesia Reactions: Yes (bradycardia, asystole) Hx Malignant Hyperthermia: No Meds Allergies/Adverse Reactions: Allergies Allergy/AdvReac Type Severity Reaction Status Date / Time No Known Allergies Allergy Verified 08/21/18 04:22 Physical Exam - Constitutional Appears: Non-toxic, No Acute Distress - Head Exam Head Exam: ATRAUMATIC - Eye Exam Eye Exam: EOMI. absent: Scleral icterus - ENT Exam ENT Exam: Mucous Membranes Moist - Respiratory Exam Respiratory Exam: NORMAL BREATHING PATTERN. absent: Accessory Muscle Use, Respiratory Distress - Cardiovascular Exam Cardiovascular Exam: REGULAR RHYTHM, +S1, +S2. absent: Bradycardia, Tachycardia - GI/Abdominal Exam GI & Abdominal Exam: Hernia (R. IH, reducible), Soft, Tenderness (tenderness in RUQ and RLQ). absent: Distended, Firm, Guarding, Rebound, Rigid Additional comments: R inguinal hernia scar well healed - Extremities Exam Extremities exam: Negative for: calf tenderness - Neurological Exam Neurological exam: Alert, Oriented x3 - Psychiatric Exam Psychiatric exam: Normal Affect - Skin Skin Exam: Intact, Warm Results - Vital Signs Recent Vital Signs: Last Vital Signs Temp 98 F 08/24/18 18:51 Pulse 61 08/25/18 01:00 Resp 18 08/25/18 01:00 BP 131/67 08/25/18 01:00 Pulse Ox 98 08/25/18 01:00 - Labs Result Diagrams: 08/24/18 15:55 08/24/18 15:55 Labs: Laboratory Results - last 24 hr 08/24/18 08/24/18 08/24/18 15:55 15:55 15:55 WBC 13.7 H RBC 3.91 Hgb 12.8 L Hct 38.8 L MCV 99.2 MCH 32.7 MCHC 33.0 RDW 15.1 H Plt Count 303 MPV 10.4 Gran % 72.2 H Lymph % (Auto) 10.9 L [place] % (Auto) 15.4 H Eos % (Auto) 1.4 L Baso % (Auto) 0.1 Gran # 9.91 H Lymph # (Auto) 1.5 [place] # (Auto) 2.1 H Eos # (Auto) 0.2 Baso # (Auto) 0.02 Sodium 138 Potassium 4.4 Chloride 101 Carbon Dioxide 31 Anion Gap 10 BUN 22 H Creatinine 1.5 Est GFR ( Amer) 53 Est GFR (Non-Af Amer) 44 Random Glucose 109 Calcium 8.7 Total Bilirubin 0.8 AST 49 ALT 46 Alkaline Phosphatase 129 H D Total Protein 7.7 Albumin 3.7 Globulin 4.0 Albumin/Globulin Ratio 0.9 L Lipase 42 Urine Color Urine Appearance Urine pH Ur Specific [place] Urine Protein Urine Glucose (UA) Urine Ketones Urine Blood Urine Nitrate Urine Bilirubin Urine Urobilinogen Ur Leukocyte Esterase Urine RBC Urine WBC Ur Epithelial Cells Urine Bacteria Influenza Typ A,B (EIA) Negative for flu a/b 08/24/18 16:38 WBC RBC Hgb Hct MCV MCH MCHC RDW Plt Count MPV Gran % Lymph % (Auto) [place] % (Auto) Eos % (Auto) Baso % (Auto) Gran # Lymph # (Auto) [place] # (Auto) Eos # (Auto) Baso # (Auto) Sodium Potassium Chloride Carbon Dioxide Anion Gap BUN Creatinine Est GFR ( Amer) Est GFR (Non-Af Amer) Random Glucose Calcium Total Bilirubin AST ALT Alkaline Phosphatase Total Protein Albumin Globulin Albumin/Globulin Ratio Lipase Urine Color Yellow Urine Appearance Sl cloudy Urine pH 6.5 Ur Specific [place] 1.020 Urine Protein 30 H Urine Glucose (UA) Negative Urine Ketones Negative Urine Blood Large H Urine Nitrate Negative Urine Bilirubin Negative Urine Urobilinogen 0.2 Ur Leukocyte Esterase Trace H Urine RBC Tntc H Urine WBC 2 - 5 Ur Epithelial Cells 0 - 2 Urine Bacteria Small Influenza Typ A,B (EIA) Assessment & Plan - Assessment and Plan (Free Text) Assessment: 88M w/ Acute cholecystitis and Reducible right inguinal hernia Plan: pain control PRN Need primary and medical clearance prior to any surgical intervention antiemetic serial abdominal exams IVF/Abx f/u AM Labs further recs per Dr. Lema surgical attending [facility] PGY2
[2018-08-25] MEDS ORDERED: Influenza Vaccine 60 mcg/0.5 mL SYR (4YR UP) IM ONE (04:56)
[2018-08-25] MEDS ORDERED: Pneumococcal 23-Valent Vaccine IM ONE (04:56)
[2018-08-25] MEDS ORDERED: Morphine 4 mg/ml ISec IVP PRN (06:16)
[2018-08-25] MEDS ORDERED: cefOXitin 2 GM in Sodium Chloride 0.9% 100 ML IV SCH (06:30)
[2018-08-25 07:59] LABS: INR 1.7; PARTIAL THROMBOPLASTIN TIME 34.9 Seconds (25.1-36.5); PROTHROMBIN TIME 19.8 SECONDS (9.4-12.5)
[2018-08-25 08:01] LABS: BASO # 0.01 K/mm3 (0.0-2.0); BASO % 0.1 % (0.0-3.0); EOS # 0.2 (0.0-0.7); EOS % 1.9 % (1.5-5.0); GRAN # 8.78 (1.4-6.5); GRAN % 71.4 % (50.0-68.0); LYMPH # 1.4 (1.2-3.4); LYMPH % 11.5 % (22.0-35.0); MEAN CORPUSCULAR HEMOGLOBIN 32.7 pg (25.0-35.0); MEAN CORPUSCULAR HGB CONC 32.7 g/dl (31.0-37.0); MEAN PLATELET VOLUME 10.5 fl (7.0-11.0); MONO # 1.9 (0.1-0.6); MONO % 15.1 % (1.0-6.0); RBC 3.98 10^6/uL (3.5-6.1); RED CELL DISTRIBUTION WIDTH 15.1 % (11.5-14.5); WHITE BLOOD COUNT 12.3 10^3/uL (4.5-11.0)
[2018-08-25 08:22] LABS: ALB/GLOB RATIO 0.9 (1.1-1.8); ALBUMIN 3.5 g/dL (3.0-4.8); CALCIUM 8.7 mg/dL (8.4-10.5)
--- NOTE | 2018-08-25 09:36 | CP.PCM.CON ---
History of Present Illness - History of Present Illness History of Present Illness: GI Fellow PGY4, Consult note. Ricardo Sr is 88M presenting with acute abdominal pain. The abdominal pain has been intermittent and mild in the past and he was previously seen 4 days ago at this hospital. He was found to have cholelithiasis and pain had resolved and he was sent home. Pain has returned and significantly worse. CT scan now shows acute cholecystitis with gallstone. Surgery has evaluated patient and is waiting for clearance before surgery. Patient is receiving antibiotics, IV fluids in the meantime. 12 point ROS negative other than stated above MHx: AFib (on warfarin, s/p pacemaker), CHF, HTN, HLD, Hypothyroid, Bladder mass SurgHx: Hernia surgery Meds: Reviewed in chart FamHx: Unknown CA history SocHx: Denied x 3 All: NKDA Past Patient History - Infectious Disease Hx of Infectious Diseases: None - Tetanus Immunizations Tetanus Immunization: Unknown - Past Social History Smoking Status: Former Smoker - CARDIAC Hx Cardiac Disorders: Yes (Afib, pacemaker) - PULMONARY Hx Respiratory Disorders: No - NEUROLOGICAL Hx Neurological Disorder: No - HEENT Hx HEENT Problems: No - RENAL Hx Chronic Kidney Disease: No - ENDOCRINE/METABOLIC Hx Endocrine Disorders: Yes Hx Hypothyroidism: Yes - HEMATOLOGICAL/ONCOLOGICAL Hx Blood Disorders: No - INTEGUMENTARY Hx Dermatological Problems: No - MUSCULOSKELETAL/RHEUMATOLOGICAL Hx Falls: Yes - GASTROINTESTINAL Hx Gastrointestinal Disorders: No - GENITOURINARY/GYNECOLOGICAL Hx Genitourinary Disorders: Yes Hx Hematuria: Yes - PSYCHIATRIC Hx Psychophysiologic Disorder: No - SURGICAL HISTORY Hx Appendectomy: Yes Hx Orthopedic Surgery: Yes (r knee sx) Other/Comment: cysto 03/14/18 to evacuate clots, dx gross hematuria bleeding from prostate dr sosa - ANESTHESIA Hx Anesthesia: Yes Hx Anesthesia Reactions: Yes (bradycardia, asystole) Hx Malignant Hyperthermia: No Meds Allergies/Adverse Reactions: Allergies Allergy/AdvReac Type Severity Reaction Status Date / Time No Known Allergies Allergy Verified 08/21/18 04:22 - Medications Medications: Current Medications Cefoxitin Sodium 2 gm/ Sodium (Chloride) 100 mls @ 100 mls/hr IV Q8H [facility]; Protocol Last Admin: 08/25/18 09:00 Dose: 100 mls/hr Metronidazole (Flagyl) 500 mg in 100 mls @ 100 mls/hr IVPB Q8 [facility]; Protocol Lactated Ringer's (Lactated Ringer's) 1,000 mls @ 115 mls/hr IV .Q8H42M [facility] Ketorolac Tromethamine (Toradol) 30 mg IVP Q6 PRN PRN Reason: Pain, moderate (4-7) Morphine Sulfate (Morphine) 4 mg IVP Q4H PRN PRN Reason: Pain, severe (8-10) Physical Exam - Constitutional Appears: Well, Non-toxic - Head Exam Head Exam: ATRAUMATIC, NORMAL INSPECTION - Eye Exam Eye Exam: EOMI, Normal appearance - Respiratory Exam Respiratory Exam: Clear to Auscultation Bilateral, NORMAL BREATHING PATTERN - Cardiovascular Exam Cardiovascular Exam: REGULAR RHYTHM, +S1, +S2 - GI/Abdominal Exam GI & Abdominal Exam: Normal Bowel Sounds, Soft, Tenderness Additional comments: +Palpable gallbladder. - Neurological Exam Neurological exam: Alert, CN II-XII Intact, Oriented x3 - Psychiatric Exam Psychiatric exam: Normal Affect, Normal Mood - Skin Skin Exam: Dry, Normal Color Results - Vital Signs Recent Vital Signs: Last Vital Signs Temp 98 F 08/24/18 18:51 Pulse 60 08/25/18 02:05 Resp 18 08/25/18 05:02 BP 130/62 08/25/18 02:05 Pulse Ox 98 08/25/18 02:05 - Labs Result Diagrams: 08/25/18 07:00 08/25/18 07:00 Labs: Laboratory Results - last 24 hr 08/24/18 08/24/18 08/24/18 15:55 15:55 15:55 WBC 13.7 H RBC 3.91 Hgb 12.8 L Hct 38.8 L MCV 99.2 MCH 32.7 MCHC 33.0 RDW 15.1 H Plt Count 303 MPV 10.4 Gran % 72.2 H Lymph % (Auto) 10.9 L Curry % (Auto) 15.4 H Eos % (Auto) 1.4 L Baso % (Auto) 0.1 Gran # 9.91 H Lymph # (Auto) 1.5 Curry # (Auto) 2.1 H Eos # (Auto) 0.2 Baso # (Auto) 0.02 PT INR APTT Sodium 138 Potassium 4.4 Chloride 101 Carbon Dioxide 31 Anion Gap 10 BUN 22 H Creatinine 1.5 Est GFR ( Amer) 53 Est GFR (Non-Af Amer) 44 POC Glucose (mg/dL) Random Glucose 109 Calcium 8.7 Phosphorus Magnesium Total Bilirubin 0.8 AST 49 ALT 46 Alkaline Phosphatase 129 H D NT-Pro-B Natriuret Pep Total Protein 7.7 Albumin 3.7 Globulin 4.0 Albumin/Globulin Ratio 0.9 L Lipase 42 Urine Color Urine Appearance Urine pH Ur Specific Bynum Urine Protein Urine Glucose (UA) Urine Ketones Urine Blood Urine Nitrate Urine Bilirubin Urine Urobilinogen Ur Leukocyte Esterase Urine RBC Urine WBC Ur Epithelial Cells Urine Bacteria Influenza Typ A,B (EIA) Negative for flu a/b 08/24/18 08/25/18 08/25/18 16:38 02:16 06:20 WBC RBC Hgb Hct MCV MCH MCHC RDW Plt Count MPV Gran % Lymph % (Auto) Curry % (Auto) Eos % (Auto) Baso % (Auto) Gran # Lymph # (Auto) Curry # (Auto) Eos # (Auto) Baso # (Auto) PT INR APTT Sodium Potassium Chloride Carbon Dioxide Anion Gap BUN Creatinine Est GFR ( Amer) Est GFR (Non-Af Amer) POC Glucose (mg/dL) 100 92 Random Glucose Calcium Phosphorus Magnesium Total Bilirubin AST ALT Alkaline Phosphatase NT-Pro-B Natriuret Pep Total Protein Albumin Globulin Albumin/Globulin Ratio Lipase Urine Color Yellow Urine Appearance Sl cloudy Urine pH 6.5 Ur Specific Bynum 1.020 Urine Protein 30 H Urine Glucose (UA) Negative Urine Ketones Negative Urine Blood Large H Urine Nitrate Negative Urine Bilirubin Negative Urine Urobilinogen 0.2 Ur Leukocyte Esterase Trace H Urine RBC Tntc H Urine WBC 2 - 5 Ur Epithelial Cells 0 - 2 Urine Bacteria Small Influenza Typ A,B (EIA) 08/25/18 08/25/18 08/25/18 07:00 07:00 07:00 WBC 12.3 H RBC 3.98 Hgb 13.0 L Hct 39.8 L MCV 100.0 MCH 32.7 MCHC 32.7 RDW 15.1 H Plt Count 284 MPV 10.5 Gran % 71.4 H Lymph % (Auto) 11.5 L Curry % (Auto) 15.1 H Eos % (Auto) 1.9 Baso % (Auto) 0.1 Gran # 8.78 H Lymph # (Auto) 1.4 Curry # (Auto) 1.9 H Eos # (Auto) 0.2 Baso # (Auto) 0.01 PT 19.8 H INR 1.70 APTT 34.9 Sodium 139 Potassium 4.4 Chloride 104 Carbon Dioxide 30 Anion Gap 10 BUN 19 Creatinine 1.5 Est GFR ( Amer) 53 Est GFR (Non-Af Amer) 44 POC Glucose (mg/dL) Random Glucose 104 Calcium 8.7 Phosphorus 2.9 Magnesium 2.3 H Total Bilirubin 1.2 AST 40 ALT 46 Alkaline Phosphatase 130 H NT-Pro-B Natriuret Pep 1380 H Total Protein 7.3 Albumin 3.5 Globulin 3.8 Albumin/Globulin Ratio 0.9 L Lipase Urine Color Urine Appearance Urine pH Ur Specific Bynum Urine Protein Urine Glucose (UA) Urine Ketones Urine Blood Urine Nitrate Urine Bilirubin Urine Urobilinogen Ur Leukocyte Esterase Urine RBC Urine WBC Ur Epithelial Cells Urine Bacteria Influenza Typ A,B (EIA) Assessment & Plan - Assessment and Plan (Free Text) Assessment: #Acute cholecystitis #Afib on warfarin #HTN #Bladder tumor #Abnormal liver imaging PLAN: -Previous abdominal U/S and CT A/P reviewed. +Acute cholecystitis on imaging and exam. -No CBD obstructive pattern on labs at this time. Recommend trending and order imaging (U/S, MRI/MRCP vs IOC) as clinically suggestive. -Hepatitis panel for abnormal liver imaging, concern for cirrhosis. -Continue abx and IV fluid -Patient needs surgery -Continue NPO, defer to surgery Case discussed with Dr. Ac, see attestation. - Date & Time Date: 08/25/18 Time: 10:37
--- NOTE | 2018-08-25 09:42 | CARD ---
APPROVED REPORT Date of service: 08/24/2018 EKG Measurement Heart [id number] <Conclusion> Electronic ventricular pacemaker
[2018-08-25] MEDS ORDERED: Sodium Chloride 0.45% 1,000 ML IV SCH (10:00)
[2018-08-25] MEDS ORDERED: Enoxaparin 40 mg Syringe SC SCH (10:15)
[2018-08-25] MEDS: metroNIDAZOLE IV 500 mg/100 ml 500 MG/100 ML BAG IVPB SCH ×3 (10:51→22:25)
[2018-08-25] MEDS ORDERED: Phytonadione 10 mg/ml Inj (Adult) SC STA (11:48)
[2018-08-25] MEDS: Insulin Reg-MEDIUM-Coverage SC SCH ×2 (12:32→18:18)
--- NOTE | 2018-08-25 14:22 | CT ---
Date of service: 08/24/2018 PROCEDURE: CT Abdomen and Pelvis with contrast HISTORY: abdominal pain COMPARISON: 04/18/2018 TECHNIQUE: Contrast dose: 100 cc of Omni 350 Radiation dose: Total exam DLP = 725.33 mGy-cm. This CT exam was performed using one or more of the following dose reduction techniques: Automated exposure control, adjustment of the mA and/or kV according to patient size, and/or use of iterative reconstruction technique. FINDINGS: LOWER THORAX: Focal infiltrates in the right middle lobe and left lung base LIVER: Fatty infiltration of the liver with areas of sparing GALLBLADDER AND BILE DUCTS: The gallbladder is distended and there thickening of the gallbladder wall suspicious for cholecystitis. Small stones are seen PANCREAS: Unremarkable. No gross lesion or ductal dilatation. SPLEEN: Unremarkable. ADRENALS: Unremarkable. No mass. KIDNEYS AND URETERS: Unremarkable. No hydronephrosis. No solid mass. VASCULATURE: Unremarkable. No aortic aneurysm. Aortic calcification BOWEL: Unremarkable. No obstruction. No gross mural thickening. APPENDIX: Normal appendix. PERITONEUM: Small amount of free fluid in the pelvis LYMPH NODES: Unremarkable. No enlarged lymph nodes. BLADDER: There is a 2 x 3 cm mass on the right side of the bladder consistent with a bladder neoplasm. REPRODUCTIVE: Unremarkable. BONES: No acute fracture. OTHER FINDINGS: The report concurs with the preliminary [facility] report IMPRESSION: Probable cholecystitis. Distended gallbladder with thickened wall. 2 x 3 cm mass in the right side of the bladder consistent with bladder neoplasm. Right middle lobe and left lower lobe infiltrates consistent with pneumonia
[2018-08-25] MEDS: Cefepime 1gm in NS 100ml 1 GM/100 ML BAG IVPB SCH ×2 (15:38→22:26)
--- NOTE | 2018-08-25 17:34 | CON ---
DATE OF CONSULTATION: 08/25/2018 HISTORY: The patient is an 88-year-old male who presented with abdominal pain. This is a second admission recently for his abdominal pain. His previous cardiac workup included an echocardiogram, which was performed in 02/2018, which revealed normal ejection fraction of 65. However, there is moderate pulmonary hypertension. He has been admitted multiple times for atypical chest pain and has been advised to undergo a stress test in which the patient has not followed up with his appointments. He denies angina now. PAST MEDICAL HISTORY: History of chronic atrial fibrillation and status post pacemaker placement. He suffers from hypertension and hypercholesterolemia. SOCIAL HISTORY The patient denies smoking. REVIEW OF SYSTEMS: A 14-point review of systems is reviewed in detail. No angina. No edema is noted. However, he does have atypical abdominal pain on and off. PHYSICAL EXAMINATION: VITAL SIGNS: The blood pressure is 161/75. Heart rate is in the 60s, atrial fibrillation. NECK: Negative JVD. LUNGS: Without rales. HEART: S1, S2. EXTREMITIES: Without edema. DIAGNOSTIC DATA: EKG reveals a paced rhythm. LABORATORY DATA: Hemoglobin of 13. Chemistries: BUN and creatinine 30 and 1.5. ProBNP is 1380 with a troponin that is 0.06. IMPRESSION: 1. Recurrent abdominal pain. 2. High probability for coronary artery disease. 3. History of atrial fibrillation. 4. History of pacemaker placement. 5. Cholelithiasis. PLAN: Given the patient's high probability for CAD, we will do a cardiac catheterization in the morning to evaluate his cardiac risk and to rule out significant coronary artery disease before his abdominal surgery. Maury Booker MD
--- NOTE | 2018-08-25 18:01 | CON ---
DATE OF CONSULTATION: 08/25/2018 The patient is in Room 575, Bed 1. CHIEF COMPLAINT: Right upper quadrant pain x1 day duration. HISTORY OF PRESENT ILLNESS: This is an 88-year-old male with history of aortic insufficiency, congestive heart failure, urinary bladder mass, history of right-sided healthcare-associated disease, history of renal disease, hypothyroidism, hypertension and atrial fibrillation, who was admitted with abdominal pain. No nausea. He has low-grade fevers. No chills, no chest pain, no cough. No dysuria or frequency. PAST MEDICAL HISTORY: Significant for atrial fibrillation, hypothyroidism, hypertension, right-sided healthcare-associated pneumonia in the past, renal disease, urinary bladder mass, congestive heart failure, and aortic insufficiency. PAST SURGICAL HISTORY: Significant for pacemaker and hernia surgery. MEDICATIONS: Coumadin, Lopressor, isosorbide, Lasix. ALLERGIES: THE PATIENT HAS NO KNOWN ALLERGIES TO ANY ANTIBIOTICS. REVIEW OF SYSTEMS: A 12-point review of systems is performed. PHYSICAL EXAMINATION: GENERAL: The patient is in bed. VITAL SIGNS: Temperature of 97, blood pressure is 161/70, respiratory rate of 18, heart rate of 60. HEENT: Unremarkable. NECK: Supple. LUNGS: Decreased breath sounds. HEART: Normal S1 and S2. ABDOMEN: Tender. No rebound, no guarding, no masses. LABORATORY EXAMINATION: White count of 13,700, hemoglobin of 12, and platelets of 303. Chemistries reveal a BUN of 22 and creatinine of 1.5. Alk phos is 129 with normal lipase. Urinalysis is noted. Influenza is negative. Microbiology is pending. The patient had a CAT scan of the abdomen and pelvis, the results are pending. ASSESSMENT AND PLAN: This is an 88-year-old male with #1 is acute cholecystitis with leukocytosis. We will treat the patient with Maxipime and Flagyl. The patient had been to the emergency room recently. We will check on the blood cultures, final CAT scan results, and surgical and GI evaluation. We will follow with you. Ebenezer Ledesma MD
--- NOTE | 2018-08-25 19:57 | HP ---
DATE OF EXAM: 08/25/2018 HISTORY OF PRESENT ILLNESS: I have spoken to the daughter. Over the past 24 hours, he is having this abdominal pain again. He is very uncomfortable, it will not stop. So, I sent him to the emergency room. 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 He was able to eat some eggs with breakfast, but the pain is just getting worse and worse. He has a past medical history of atrial fibrillation, on Coumadin, CHF, diabetes, BPH, hypertension. He has atrial fibrillation and a pacemaker. Hypothyroid. He has had hematuria in the past. He has had right knee surgery. He has had a cystoscopy to evacuate clots. He has had gross hematuria, bleeding prostate in the past with Dr. Momin. He has had bradycardia and asystole. FAMILY HISTORY: Unknown family history. SOCIAL HISTORY: No smoker. No drinking. No drugs. ALLERGIES: NO KNOWN DRUG ALLERGIES. MEDICATIONS: He is on Imdur, lisinopril, Flomax, Coumadin. REVIEW OF SYSTEMS: No acute vision or hearing changes. No sore throat. No chest pain. No shortness of breath. He does have right upper and left upper quadrant abdominal pains. No constipation or diarrhea. No problems urinating. No hematuria. No leg pains. No skin issues that he knows of. He is not anxious, not nervous. PHYSICAL EXAMINATION: VITAL SIGNS: He has 97.2 temperature, 66 pulse, 18 respiratory rate, 158/76 blood pressure, 98% O2 sat. GENERAL: He is well appearing, nontoxic. A little uncomfortable with abdominal pain. He is alert and oriented x3. HEENT: Head is atraumatic, normocephalic. Extraocular muscles are intact. Pupils are equal, reactive to light and accommodation. Throat is moist. NECK: Supple. HEART: Regular rate. Normal S1, S2. LUNGS: Decreased breath sounds. Clear to auscultation. ABDOMEN: He has some upper quadrant tenderness feel the gallbladder. No guarding. No rebound. EXTREMITIES: No edema in the extremities. NEUROLOGIC: GCS is 15. Cranial nerves II through XII grossly intact. He has normal speech. Alert and oriented x3. SKIN: Warm and dry. ASSESSMENT AND PLAN: He is having abdominal pain. It looks like he is having gallstones in the gallbladder. Will need a HIDA scan, Gastroenterology consult, surgical consult, will have Infectious Diseases consult and if he goes to surgery, we will get Cardiology consult for clearance. He will be on IV fluids. He is on IV antibiotics. He will have Lasix, also will have Lovenox. Of course, we will not put him on Coumadin and try to decrease the oral medications as much as possible. Morphine sulfate for pain and insulin coverage. CAT scan of the abdomen and pelvis is pending. He had 13.7 white count, came down to 12.3; hemoglobin 13; hematocrit 39.8; platelets of 284. INR is 1.7. We will hold the Coumadin, put him on Lovenox. Sodium 139, potassium is 4.4, BUN 19, creatinine 1.5. GFR is 40. Blood sugar is 104, calcium is 8.7, phosphorus is 2.9, magnesium 2.3. Total bili is 1.2, AST is 40, ALT is 42, alkaline phosphatase is . BNP is high at 1308. I will put him back on his Lasix, probably make that IV. Protein 7.3. Lipase is 42. Urine has too numerous to count red blood cells, trace leukocytes, large blood. Negative for flu. abdominal pain, most probably gallstones. We will see if he does need surgery. We will continue with aggressive treatment and care. Dieter Griggs DO [facility]
[2018-08-26] MEDS: Insulin Reg-MEDIUM-Coverage SC SCH ×4 (00:04→17:28)
[2018-08-26] MEDS: metroNIDAZOLE IV 500 mg/100 ml 500 MG/100 ML BAG IVPB SCH ×3 (05:18→21:20)
[2018-08-26 06:32] LABS: HEMOGLOBIN 13.2 g/dL (14.0-18.0); MEAN CELL VOLUME 99.3 fl (80.0-105.0); MEAN CORPUSCULAR HEMOGLOBIN 32.8 pg (25.0-35.0); MEAN PLATELET VOLUME 11.1 fl (7.0-11.0); RBC 4.03 10^6/uL (3.5-6.1); RED CELL DISTRIBUTION WIDTH 15.2 % (11.5-14.5); WHITE BLOOD COUNT 13.8 10^3/uL (4.5-11.0)
[2018-08-26 06:48] LABS: ALB/GLOB RATIO 0.9 (1.1-1.8); ALBUMIN 3.5 g/dL (3.0-4.8); CALCIUM 8.6 mg/dL (8.4-10.5)
--- NOTE | 2018-08-26 07:42 | CP.PCM.PN ---
Subjective - Date & Time of Evaluation Date of Evaluation: 08/26/18 Time of Evaluation: 06:40 - Subjective Subjective: PGY-1 Romelia Fontanez D.O. Surgery progress note for Dr. Lema: Patient was seen and examined this morning. He states that he continues to have RUQ abdominal pain that is about the same as yesterday. He is NPO for cardiac cath today. He denies present chest pain or SOB. Denies nausea and vomiting. Objective - Vital Signs/Intake and Output Vital Signs (last 24 hours): Temp Pulse Resp BP Pulse Ox 98 F 61 20 131/67 95 08/25/18 22:00 08/25/18 22:00 08/25/18 22:00 08/25/18 22:00 08/25/18 22:00 Intake and Output: 08/26/18 08/26/18 06:59 18:59 Intake Total 240 Output Total 300 Balance -60 - Medications Medications: Current Medications Aspirin (Ecotrin) 81 mg PO DAILY [facility] Stop: 08/26/18 14:00 Last Admin: 08/25/18 15:39 Dose: 81 mg Furosemide (Lasix) 40 mg IVP DAILY [facility] Last Admin: 08/25/18 12:35 Dose: 40 mg Metronidazole (Flagyl) 500 mg in 100 mls @ 100 mls/hr IVPB Q8 [facility]; Protocol Last Admin: 08/26/18 05:18 Dose: 100 mls/hr Lactated Ringer's (Lactated Ringer's) 1,000 mls @ 115 mls/hr IV .Q8H42M [facility] Sodium Chloride (Sodium Chloride 0.45%) 1,000 mls @ 40 mls/hr IV .Q24H [facility] Last Admin: 08/25/18 11:24 Dose: 40 mls/hr Cefepime HCl (Maxipime 1gm) 1 gm in 100 mls @ 100 mls/hr IVPB Q12 [facility]; Protocol Stop: 09/03/18 13:01 Last Admin: 08/25/18 22:26 Dose: 100 mls/hr Insulin Human Regular (Humulin R Med) 0 units SC ACHS [facility]; Protocol Last Admin: 08/26/18 00:04 Dose: Not Given Ketorolac Tromethamine (Toradol) 30 mg IVP Q6 PRN PRN Reason: Pain, moderate (4-7) Morphine Sulfate (Morphine) 4 mg IVP Q4H PRN PRN Reason: Pain, severe (8-10) Morphine Sulfate (Morphine) 2 mg IVP Q4H PRN PRN Reason: Anxiety - Labs Labs: 08/26/18 05:30 08/26/18 05:30 PT 19.8 SECONDS (9.4-12.5) H 08/25/18 07:00 INR 1.70 08/25/18 07:00 APTT 34.9 Seconds (25.1-36.5) 08/25/18 07:00 - Constitutional Appears: Non-toxic, No Acute Distress - Head Exam Head Exam: ATRAUMATIC, NORMAL INSPECTION - Eye Exam Eye Exam: EOMI, Normal appearance - ENT Exam ENT Exam: Mucous Membranes Moist - Neck Exam Neck Exam: Normal Inspection - Respiratory Exam Respiratory Exam: NORMAL BREATHING PATTERN. absent: Accessory Muscle Use, Respiratory Distress - Cardiovascular Exam Cardiovascular Exam: REGULAR RHYTHM - GI/Abdominal Exam GI & Abdominal Exam: Soft, Tenderness (RUQ), Hernia (R inguinal- reducible). absent: Distended, Rebound - Extremities Exam Extremities Exam: Normal Inspection - Neurological Exam Neurological Exam: Alert, Awake, CN II-XII Intact, Oriented x3 - Psychiatric Exam Psychiatric exam: Normal Affect, Normal Mood - Skin Skin Exam: Dry, Normal Color, Warm Assessment and Plan - Assessment and Plan (Free Text) Assessment: 88M with acute cholecystitis and reducible right inguinal hernia Plan: - Cardiac catheter today 08/26 - Operative intervention for gallbladder pending cardiac clearance - NPO - IVF - Continue antibiotics - Analgesics PRN Further recs as per attending, Dr. Lema.
[2018-08-26 08:03] LABS: HEPATITIS B SURFACE AG Negative (NEGATIVE)
[2018-08-26 08:09] LABS: HEPATITIS A IGM NEGATIVE (NEGATIVE); HEPATITIS B CORE AB NEGATIVE (NEGATIVE)
[2018-08-26 08:20] LABS: HEPATITIS C ANTIBODY NEGATIVE (NEGATIVE)
[2018-08-26] MEDS ORDERED: Potassium Chloride 40 mEq/30 ml LIQ UD PO ONE (09:44)
--- NOTE | 2018-08-26 10:02 | CP.PCM.PN ---
<Alex Caballero - Last Filed: 08/26/18 10:03> Subjective - Date & Time of Evaluation Date of Evaluation: 08/26/18 Time of Evaluation: 08:15 - Subjective Subjective: PGY-4 GI Fellow Prog Note Pt sleeping in bed when seen this AM. States he still has some R sided abd pain. Eager for cardiac cath. No problems with BMs. 5 point ROS negative other than stated above Objective - Vital Signs/Intake and Output Vital Signs (last 24 hours): Temp Pulse Resp BP Pulse Ox 97.6 F 66 20 137/70 96 08/26/18 06:00 08/26/18 06:00 08/26/18 06:00 08/26/18 06:00 08/26/18 06:00 Intake and Output: 08/26/18 08/26/18 06:59 18:59 Intake Total 240 Output Total 300 Balance -60 - Medications Medications: Current Medications Aspirin (Ecotrin) 81 mg PO DAILY [facility] Stop: 08/26/18 14:00 Last Admin: 08/25/18 15:39 Dose: 81 mg Furosemide (Lasix) 40 mg IVP DAILY [facility] Last Admin: 08/25/18 12:35 Dose: 40 mg Metronidazole (Flagyl) 500 mg in 100 mls @ 100 mls/hr IVPB Q8 [facility]; Protocol Last Admin: 08/26/18 05:18 Dose: 100 mls/hr Lactated Ringer's (Lactated Ringer's) 1,000 mls @ 115 mls/hr IV .Q8H42M [facility] Sodium Chloride (Sodium Chloride 0.45%) 1,000 mls @ 40 mls/hr IV .Q24H [facility] Last Admin: 08/25/18 11:24 Dose: 40 mls/hr Cefepime HCl (Maxipime 1gm) 1 gm in 100 mls @ 100 mls/hr IVPB Q12 [facility]; Protocol Stop: 09/03/18 13:01 Last Admin: 08/25/18 22:26 Dose: 100 mls/hr Potassium Chloride (Potassium Chloride 10 Meq/100 Ml) 10 meq in 100 mls @ 50 mls/hr IVPB Q2H [facility] Stop: 08/26/18 13:59 Insulin Human Regular (Humulin R Med) 0 units SC ACHS [facility]; Protocol Last Admin: 08/26/18 08:46 Dose: Not Given Ketorolac Tromethamine (Toradol) 30 mg IVP Q6 PRN PRN Reason: Pain, moderate (4-7) Morphine Sulfate (Morphine) 4 mg IVP Q4H PRN PRN Reason: Pain, severe (8-10) Morphine Sulfate (Morphine) 2 mg IVP Q4H PRN PRN Reason: Anxiety - Labs Labs: 08/26/18 05:30 08/26/18 05:30 PT 19.8 SECONDS (9.4-12.5) H 08/25/18 07:00 INR 1.70 08/25/18 07:00 APTT 34.9 Seconds (25.1-36.5) 08/25/18 07:00 - Constitutional Appears: Well, No Acute Distress - Head Exam Head Exam: ATRAUMATIC, NORMAL INSPECTION - Eye Exam Eye Exam: EOMI. absent: Scleral icterus - ENT Exam ENT Exam: Mucous Membranes Moist. absent: Mucous Membranes Dry - Respiratory Exam Respiratory Exam: NORMAL BREATHING PATTERN. absent: Accessory Muscle Use, Resp iratory Distress - GI/Abdominal Exam GI & Abdominal Exam: Soft, Tenderness (R side w/o guarding), Normal Bowel Sounds. absent: Bruit, Distended, Firm, Guarding, Rigid, Mass, Organomegaly, Pulsatile Mass Assessment and Plan - Assessment and Plan (Free Text) Assessment: #Acute cholecystitis #Afib on warfarin #HTN #Bladder tumor #Abnormal liver imaging Plan: -Previous abdominal U/S and CT A/P reviewed. +Acute cholecystitis on imaging and exam. -No CBD dilation nor obstructive pattern on labs -Hepatitis panel negative -Continue diet, abx and IV fluid per surgery/primary -Plans for cardiac cath today and eventual cholecystectomy Thank you for the consult. Will sign off; please call if questions. Pt discussed with Dr. Corrales; please see attestation for further recs/changes. <Hammad Corrales - Last Filed: 08/26/18 10:24> Objective - Vital Signs/Intake and Output Vital Signs (last 24 hours): Temp Pulse Resp BP Pulse Ox 97.6 F 66 20 137/70 96 08/26/18 06:00 08/26/18 06:00 08/26/18 06:00 08/26/18 06:00 08/26/18 06:00 Intake and Output: 08/26/18 08/26/18 06:59 18:59 Intake Total 240 Output Total 300 Balance -60 - Medications Medications: Current Medications Aspirin (Ecotrin) 81 mg PO DAILY [facility] Stop: 08/26/18 14:00 Last Admin: 08/25/18 15:39 Dose: 81 mg Furosemide (Lasix) 40 mg IVP DAILY [facility] Last Admin: 08/25/18 12:35 Dose: 40 mg Metronidazole (Flagyl) 500 mg in 100 mls @ 100 mls/hr IVPB Q8 [facility]; Protocol Last Admin: 08/26/18 05:18 Dose: 100 mls/hr Lactated Ringer's (Lactated Ringer's) 1,000 mls @ 115 mls/hr IV .Q8H42M [facility] Sodium Chloride (Sodium Chloride 0.45%) 1,000 mls @ 40 mls/hr IV .Q24H [facility] Last Admin: 08/25/18 11:24 Dose: 40 mls/hr Cefepime HCl (Maxipime 1gm) 1 gm in 100 mls @ 100 mls/hr IVPB Q12 [facility]; Protocol Stop: 09/03/18 13:01 Last Admin: 08/25/18 22:26 Dose: 100 mls/hr Potassium Chloride (Potassium Chloride 10 Meq/100 Ml) 10 meq in 100 mls @ 50 mls/hr IVPB Q2H [facility] Stop: 08/26/18 13:59 Insulin Human Regular (Humulin R Med) 0 units SC ACHS [facility]; Protocol Last Admin: 08/26/18 08:46 Dose: Not Given Ketorolac Tromethamine (Toradol) 30 mg IVP Q6 PRN PRN Reason: Pain, moderate (4-7) Morphine Sulfate (Morphine) 4 mg IVP Q4H PRN PRN Reason: Pain, severe (8-10) Morphine Sulfate (Morphine) 2 mg IVP Q4H PRN PRN Reason: Anxiety - Labs Labs: 08/26/18 05:30 08/26/18 05:30 PT 19.8 SECONDS (9.4-12.5) H 08/25/18 07:00 INR 1.70 08/25/18 07:00 APTT 34.9 Seconds (25.1-36.5) 08/25/18 07:00 Attending/Attestation - Attestation I have fully participated in the care of the patient.: Yes I have reviewed all pertinent clinical information, including history, physical exam and plan: Yes Notes (Text): 08/26/18 10:22 Atrial fibrillation on coumadin Abdominal pain - acute cholecystitis HTN Bladder lesion - Continue with antibiotic therapy as per ID - Diet as tolerated - Patient scheduled for cardiac cath today for surgical clearance - Follow up surgical recommendations - LFTs without biliary obstructive features, continue to monitor - No further planned GI intervention, will sign off case. Please reconsult as necessary, thank you.
[2018-08-26] MEDS ORDERED: Lidocaine 2% Inj (20ml) ONE (10:25)
[2018-08-26] MEDS ORDERED: Iodixanol 320 mg/ml 150 ml Bottle IV ONE ×2 (10:36→10:38)
[2018-08-26] MEDS ORDERED: Midazolam 2 MG/2 ML VIAL ONE (10:45)
--- NOTE | 2018-08-26 10:52 | PN ---
DATE: 08/26/2018 SUBJECTIVE: He is resting comfortably in bed. He is still having right upper quadrant pain. He is going to go for cardiac cath today with Dr. Booker to make sure his heart is okay or if he needs a stent before they take him for a cholecystectomy with surgery his gallbladder. He is currently on Maxipime and Flagyl, while we are getting him ready for surgery. He is alert. He understands what is going on. I discussed with the daughter last night. PHYSICAL EXAMINATION: VITAL SIGNS: He has a 97.6 temperature, 66 pulse, 137/70 blood pressure, 20 respiratory rate and 96% O2 sat on room air. HEENT: Head is atraumatic and normocephalic. HEART: Regular rate. LUNGS: Decreased breath sounds, but clear. ABDOMEN: Soft and nontender. Positive bowel sounds. He has right upper quadrant tenderness. No guarding. EXTREMITIES: No edema. Pain meds are helping. Being seen by Surgery, Infectious Disease and Cardiology. LABORATORY DATA: He has a white count 13.8 on antibiotics, 13.2 hemoglobin, 40 hematocrit with 301 platelets. A 139 sodium, potassium 3.6, BUN 24, creatinine 0.5, GFR is 44, sugar is 98, calcium is 8.6, total bili is 1, AST is 46, ALT is 44, alk phos of 137 and total protein 7.5. He is here with acute cholecystitis. We have got to make sure his cardiac status is good before he can go for surgery. I am going to continue aggressive treatment and care. Ricardo Sr is on antibiotics. Dieter Griggs DO MTDNeo
[2018-08-26] MEDS ORDERED: Iohexol 350mgl/ml 50 ML ONE (11:03)
[2018-08-26] MEDS ORDERED: Iodixanol 320 MG/ML 100 ML BOTTLE IV ONE (11:05)
[2018-08-26] MEDS ORDERED: Nitroglycerin 50mg in D5W 0 MG/0 ML BOTTLE IV ONE (11:05)
[2018-08-26] MEDS: Cefepime 1gm in NS 100ml 1 GM/100 ML BAG IVPB SCH ×2 (12:32→21:20)
--- NOTE | 2018-08-26 13:00 | CP.PCM.PN ---
Subjective - Date & Time of Evaluation Date of Evaluation: 08/26/18 Time of Evaluation: 08:30 - Subjective Subjective: For cardiac cath today, no fevers, still with abdominal pain but a little less. Objective - Vital Signs/Intake and Output Vital Signs (last 24 hours): Temp Pulse Resp BP Pulse Ox 97.6 F 66 20 137/70 96 08/26/18 06:00 08/26/18 06:00 08/26/18 06:00 08/26/18 06:00 08/26/18 06:00 Intake and Output: 08/26/18 08/26/18 06:59 18:59 Intake Total 240 Output Total 300 Balance -60 - Medications Medications: Current Medications Aspirin (Ecotrin) 81 mg PO DAILY [facility] Stop: 08/26/18 14:00 Last Admin: 08/25/18 15:39 Dose: 81 mg Furosemide (Lasix) 40 mg IVP DAILY [facility] Last Admin: 08/25/18 12:35 Dose: 40 mg Metronidazole (Flagyl) 500 mg in 100 mls @ 100 mls/hr IVPB Q8 [facility]; Protocol Last Admin: 08/26/18 05:18 Dose: 100 mls/hr Lactated Ringer's (Lactated Ringer's) 1,000 mls @ 115 mls/hr IV .Q8H42M [facility] Sodium Chloride (Sodium Chloride 0.45%) 1,000 mls @ 40 mls/hr IV .Q24H [facility] Last Admin: 08/25/18 11:24 Dose: 40 mls/hr Cefepime HCl (Maxipime 1gm) 1 gm in 100 mls @ 100 mls/hr IVPB Q12 [facility]; Protocol Stop: 09/03/18 13:01 Last Admin: 08/25/18 22:26 Dose: 100 mls/hr Potassium Chloride (Potassium Chloride 10 Meq/100 Ml) 10 meq in 100 mls @ 50 mls/hr IVPB Q2H [facility] Stop: 08/26/18 13:59 Insulin Human Regular (Humulin R Med) 0 units SC ACHS [facility]; Protocol Last Admin: 08/26/18 08:46 Dose: Not Given Ketorolac Tromethamine (Toradol) 30 mg IVP Q6 PRN PRN Reason: Pain, moderate (4-7) Morphine Sulfate (Morphine) 4 mg IVP Q4H PRN PRN Reason: Pain, severe (8-10) Morphine Sulfate (Morphine) 2 mg IVP Q4H PRN PRN Reason: Anxiety - Labs Labs: 08/26/18 05:30 08/26/18 05:30 PT 19.8 SECONDS (9.4-12.5) H 08/25/18 07:00 INR 1.70 08/25/18 07:00 APTT 34.9 Seconds (25.1-36.5) 08/25/18 07:00 - Constitutional Appears: Chronically Ill - Head Exam Head Exam: NORMAL INSPECTION - Respiratory Exam Respiratory Exam: Decreased Breath Sounds - Cardiovascular Exam Cardiovascular Exam: +S1, +S2 - GI/Abdominal Exam GI & Abdominal Exam: Soft. absent: Tenderness Assessment and Plan - Assessment and Plan (Free Text) Plan: Assessment acute cholecystitis with leukocytosis history of sepsis due to right sided HCAP chronic renal failure HTN hypothyroidism S/P pacemaker placement Plan continue cefepime and flagyl day 2 for cardiac cath today to make sure patient is able to tolerate surgery for the gallbladder will continue to monitor clinically
--- NOTE | 2018-08-26 13:33 | CARDCATH ---
PROCEDURE DATE: 08/26/2018 HISTORY: The patient is an 88-year-old male who presents with abdominal pain consistent with cholelithiasis. In addition, the patient's past medical history includes recurrent angina which has been treated medically. He has a high probability for CAD. Because of this, cardiac catheterization was performed prior to potential abdominal surgery. The right femoral artery was cannulated with a 6-Sami sheath. There were no complications. I performed moderate sedation which included the presence of an independent trained observer that assisted in monitoring the patient's level of consciousness and physiologic status. After administration of Versed and fentanyl, my intra-service time was 15 minutes. The findings on catheterization revealed a left ventricle that contracted normally. Estimated ejection fraction is 50% to 55%. His coronary anatomy revealed a right dominant circulation. The RCA revealed diffuse atherosclerosis with a diffusely diseased PDA with a 60% to 70% stenosis in the midportion. The left main artery revealed intimal irregularities without significant stenosis. The LAD was a long vessel that wrapped around the apex of the heart. There was diffuse atherosclerosis including a 70% stenoses in the distal portion of the LAD. The circumflex artery and obtuse marginal branches revealed intimal irregularities without critical lesions. Angio-Seal was used to close the femoral artery site. The patient tolerated the procedure well. In summary, the procedure revealed a 70% stenoses in the distal LAD as well as a diffusely diseased PDA with a 60% to 70% stenosis in the midportion. LV function is normal. Given these findings, we will elect to treat the patient's coronary disease with medical therapy as opposed to placing stents given his need for impending surgery. We will start the patient on aspirin and beta-blockers in preparation for the patient's surgery. Maury Booker MD
[2018-08-26] MEDS: Morphine 2 mg/ml ISec IVP PRN (14:18)
[2018-08-26] MEDS: Lactated Ringer's 1,000 ML IV SCH (18:47)
[2018-08-27] MEDS: metroNIDAZOLE IV 500 mg/100 ml 500 MG/100 ML BAG IVPB SCH ×3 (05:54→22:59)
[2018-08-27] MEDS: Insulin Reg-MEDIUM-Coverage SC SCH ×4 (05:55→22:20)
[2018-08-27 08:23] LABS: HEMOGLOBIN 12.7 g/dL (14.0-18.0); MEAN CELL VOLUME 100.5 fl (80.0-105.0); MEAN CORPUSCULAR HEMOGLOBIN 32.3 pg (25.0-35.0); MEAN CORPUSCULAR HGB CONC 32.2 g/dl (31.0-37.0); MEAN PLATELET VOLUME 10.7 fl (7.0-11.0); RBC 3.93 10^6/uL (3.5-6.1); RED CELL DISTRIBUTION WIDTH 15.1 % (11.5-14.5); WHITE BLOOD COUNT 11.4 10^3/uL (4.5-11.0)
[2018-08-27 08:37] LABS: INR 1.37; PARTIAL THROMBOPLASTIN TIME 32.1 Seconds (25.1-36.5); PROTHROMBIN TIME 15.9 SECONDS (9.4-12.5)
[2018-08-27 08:40] LABS: ALB/GLOB RATIO 0.9 (1.1-1.8); ALBUMIN 3.4 g/dL (3.0-4.8); CALCIUM 8.6 mg/dL (8.4-10.5)
--- NOTE | 2018-08-27 08:46 | PN ---
DATE: 08/27/2018 SUBJECTIVE: He is resting comfortably in bed. He is status post cardiac cath yesterday with Dr. Booker. He had 60% 70% and again have to go with metoprolol and aspirin for treatment as opposed to stenting. He continues to have a cholecystectomy today. He is on IV antibiotics as per Infectious Disease. He is going to go for a cholecystectomy for his acute cholecystitis, a leukocytosis. He is on cefepime. He should do well I am hoping with the cholecystectomy today. He is medically optimized and cardiologically medically optimized as best we can. OBJECTIVE: VITAL SIGNS: 98 temperature, 64 pulse, 148/80 blood pressure, 18 respiratory rate, 90% sat on room air. HEENT: Head: Atraumatic, normocephalic. HEART: Regular rate. LUNGS: Decreased breath sounds but clear. ABDOMEN: Soft. Mild right upper quadrant discomfort. Positive bowel sounds. EXTREMITIES: No edema. He has a hepatitis screen, is negative. Fluid that is negative. Urine that is small bacteria, some blood. LABORATORY DATA: He has 139 sodium, potassium 3.6, BUN 24, creatinine 1.5, sugar is 102, calcium 8.6, total bili is 1, AST is 46, ALT is 44, alk phos 137, total protein 7.5. INR is 1.7 that was on 08/25 and Coumadin was held. He has 13.8 white count, 13.2 hemoglobin, 40 hematocrit with a 301 platelets. We will continue with aggressive treatment and care. He is scheduled for cholecystectomy today. Dieter Griggs DO
[2018-08-27] MEDS ORDERED: Bupivacaine 0.5% 50 ML IJ ONE ×2 (09:39→10:30)
[2018-08-27] MEDS ORDERED: Propofol 10 mg/ml Inj (20 ML) ONE (09:46)
[2018-08-27] MEDS ORDERED: Lidocaine 1% Inj (20ml) ONE (09:49)
[2018-08-27] MEDS ORDERED: Rocuronium 10 mg/ml (5 ml) ONE ×2 (09:50→12:15)
[2018-08-27] MEDS ORDERED: Succinylcholine 200 mg/10 ml Inj IV ONE (09:50)
[2018-08-27] MEDS ORDERED: Iohexol 240 (50 ml) ONE (10:25)
[2018-08-27] MEDS ORDERED: Glycopyrrolate 0.2 mg/ml (2ml vial) ONE (12:01)
[2018-08-27] MEDS ORDERED: metroNIDAZOLE IV 500 mg/100 ml 500 MG/100 ML BAG ONE (14:11)
[2018-08-27] MEDS ORDERED: HYDROmorphone 0.5 mg/0.5 ml ISec IVP PRN (15:10)
[2018-08-27] MEDS ORDERED: HYDROmorphone 0.5 mg/0.5 ml ISec ONE ×2 (15:12→15:54)
[2018-08-27] MEDS ORDERED: Lactated Ringer's 1,000 ML IV SCH (15:15)
--- NOTE | 2018-08-27 15:21 | CP.PCM.CON ---
History of Present Illness - History of Present Illness History of Present Illness: MICU CONSULT NOTE HPI Patient is 88yo male with PMHx of ALisa on coumadin, pacemaker, aortic insufficiency, CKD, admitted to medicine for acute cholecystitis. Patient had cardiac cath yesterday, which showed stable CAD, no stents placed. Patient had lap cholecystectomy today, converted to open cholecystectomy. (please refer to the op note) Patient currently afebrile, BP stable, comfortable in NAD, confused post anesthesia. PMHx A.Fib on coumadin, pacemaker, aortic insufficiency, ckd PSHx Lap parker Meds as per EMR Allergies NKDA FHx NC ROS cannot obtain Review of Systems - Review of Systems Review of Systems: as per HPI Past Patient History - Infectious Disease Hx of Infectious Diseases: None - Tetanus Immunizations Tetanus Immunization: Unknown - Past Social History Smoking Status: Former Smoker - CARDIAC Hx Cardiac Disorders: Yes (Afib, pacemaker) - PULMONARY Hx Respiratory Disorders: No - NEUROLOGICAL Hx Neurological Disorder: No - HEENT Hx HEENT Problems: No - RENAL Hx Chronic Kidney Disease: No - ENDOCRINE/METABOLIC Hx Endocrine Disorders: Yes Hx Hypothyroidism: Yes - HEMATOLOGICAL/ONCOLOGICAL Hx Blood Transfusions: No Hx Blood Transfusion Reaction: (NA) - INTEGUMENTARY Hx Dermatological Problems: No - MUSCULOSKELETAL/RHEUMATOLOGICAL Hx Falls: Yes - GASTROINTESTINAL Hx Gastrointestinal Disorders: No - GENITOURINARY/GYNECOLOGICAL Hx Genitourinary Disorders: Yes Hx Hematuria: Yes - PSYCHIATRIC Hx Psychophysiologic Disorder: No - SURGICAL HISTORY Hx Surgeries: Yes (PACEMAKER) - ANESTHESIA Hx Anesthesia Reactions: Yes (bradycardia, asystole) Hx Malignant Hyperthermia: No Meds Allergies/Adverse Reactions: Allergies Allergy/AdvReac Type Severity Reaction Status Date / Time No Known Allergies Allergy Verified 08/21/18 04:22 - Medications Medications: Current Medications Aspirin (Aspirin Chewable) 81 mg PO DAILY [facility] Last Admin: 08/26/18 14:18 Dose: 81 mg Hydromorphone HCl (Dilaudid) 0.5 mg IVP Q15M PRN PRN Reason: Other Stop: 08/27/18 17:10 Metronidazole (Flagyl) 500 mg in 100 mls @ 100 mls/hr IVPB Q8 [facility]; Protocol Last Admin: 08/27/18 05:54 Dose: 100 mls/hr Lactated Ringer's (Lactated Ringer's) 1,000 mls @ 115 mls/hr IV .Q8H42M [facility] Last Admin: 08/26/18 18:47 Dose: 115 mls/hr Cefepime HCl (Maxipime 1gm) 1 gm in 100 mls @ 100 mls/hr IVPB Q12 [facility]; Protocol Stop: 09/03/18 13:01 Last Admin: 08/26/18 21:20 Dose: 100 mls/hr Lactated Ringer's (Lactated Ringer's) 1,000 mls @ 75 mls/hr IV .[id number] [facility] Stop: 08/27/18 17:16 Hydromorphone HCl (Dilaudid 0.2 Mg/Ml [employer]) 25 mls @ 0 mls/hr IV PRN PRN; Protocol PRN Reason: TRAFFIC CHECKER PER MD ORDER Insulin Human Regular (Humulin R Med) 0 units SC ACHS [facility]; Protocol Last Admin: 08/27/18 08:15 Dose: Not Given Ketorolac Tromethamine (Toradol) 30 mg IVP Q6 PRN PRN Reason: Pain, moderate (4-7) Metoclopramide HCl (Reglan) 10 mg IV ONCE PRN PRN Reason: Nausea/Vomiting Metoprolol Tartrate (Lopressor) 25 mg PO BID [facility] Last Admin: 08/27/18 08:18 Dose: 25 mg Morphine Sulfate (Morphine) 4 mg IVP Q4H PRN PRN Reason: Pain, severe (8-10) Last Admin: 08/26/18 19:02 Dose: 4 mg Morphine Sulfate (Morphine) 2 mg IVP Q4H PRN PRN Reason: Anxiety Last Admin: 08/26/18 14:18 Dose: 2 mg Physical Exam - Constitutional Appears: Non-toxic, No Acute Distress, Younger Than Stated Age - Head Exam Head Exam: NORMAL INSPECTION - Eye Exam Eye Exam: Normal appearance - ENT Exam ENT Exam: Mucous Membranes Dry - Respiratory Exam Respiratory Exam: Clear to Auscultation Bilateral, NORMAL BREATHING PATTERN - Cardiovascular Exam Cardiovascular Exam: REGULAR RHYTHM, +S1, +S2 - GI/Abdominal Exam GI & Abdominal Exam: Normal Bowel Sounds, Soft Additional comments: +drain - Extremities Exam Extremities exam: Positive for: normal inspection - Neurological Exam Neurological exam: Altered - Skin Skin Exam: Normal Color, Warm Results - Vital Signs Recent Vital Signs: Last Vital Signs Temp 98.3 F 08/27/18 08:15 Pulse 66 08/27/18 08:18 Resp 18 08/27/18 08:15 BP 143/74 08/27/18 08:18 Pulse Ox 93 L 08/27/18 08:15 - Labs Result Diagrams: 08/27/18 07:40 08/27/18 07:40 Labs: Laboratory Results - last 24 hr 08/26/18 08/26/18 08/27/18 16:41 21:44 07:02 WBC RBC Hgb Hct MCV MCH MCHC RDW Plt Count MPV PT INR APTT Sodium Potassium Chloride Carbon Dioxide Anion Gap BUN Creatinine Est GFR ( Amer) Est GFR (Non-Af Amer) POC Glucose (mg/dL) 121 H 119 H 102 Random Glucose Calcium Total Bilirubin AST ALT Alkaline Phosphatase Total Protein Albumin Globulin Albumin/Globulin Ratio Blood Type Antibody Screen BBK History Checked 08/27/18 08/27/18 08/27/18 07:40 07:40 07:40 WBC 11.4 H RBC 3.93 Hgb 12.7 L Hct 39.5 L MCV 100.5 MCH 32.3 MCHC 32.2 RDW 15.1 H Plt Count 276 MPV 10.7 PT 15.9 H INR 1.37 APTT 32.1 Sodium 140 Potassium 4.4 Chloride 105 Carbon Dioxide 29 Anion Gap 10 BUN 24 H Creatinine 1.4 Est GFR ( Amer) 58 Est GFR (Non-Af Amer) 48 POC Glucose (mg/dL) Random Glucose 95 Calcium 8.6 Total Bilirubin 1.0 AST 38 ALT 37 Alkaline Phosphatase 133 H Total Protein 7.1 Albumin 3.4 Globulin 3.8 Albumin/Globulin Ratio 0.9 L Blood Type Antibody Screen BBK History Checked 08/27/18 07:40 WBC RBC Hgb Hct MCV MCH MCHC RDW Plt Count MPV PT INR APTT Sodium Potassium Chloride Carbon Dioxide Anion Gap BUN Creatinine Est GFR ( Amer) Est GFR (Non-Af Amer) POC Glucose (mg/dL) Random Glucose Calcium Total Bilirubin AST ALT Alkaline Phosphatase Total Protein Albumin Globulin Albumin/Globulin Ratio Blood Type A NEGATIVE Antibody Screen Negative BBK History Checked Patient has bt Assessment & Plan - Assessment and Plan (Free Text) Assessment: 88yo male with PMhx A.Fib on coumadin, pacemaker, aortic insufficiency, CKD s/p open cholecystectomy CAD CKD Afib on A/C PPM Recommend: - supp o2 as needed, duonebs PRN - abx as per ID - BP control - hold coumadin until tomorrow, as per surgery - post op mgmt as per surgery - pain control, dilaudid pump - IVF - NPO - GI ppx - DVT ppx - Monitor in MICU
--- NOTE | 2018-08-27 16:05 | PCM.SURG1 ---
Surgeon's Initial Post Op Note - Surgeon's Notes Surgeon: Dr. Lema, Dr. Lomax [employer] Operator: Chastity PGY4, Gregory PGY3, PGY2 Type of Anesthesia: General Endo Pre-Operative Diagnosis: Acute Cholecystitis Operative Findings: Necrotic Gallbladder, cirrhotic liver. For detials, see op note Post-Operative Diagnosis: Acute on Chronic Cholecystitis, Necrotic Gallbladder Operation Performed: 1. Boykin Placement. 2. Laparoscopic Converted to Open Cholecystectomy. 3. Exploration of Biliary tree. 4. Cholangiogram Specimen/Specimens Removed: 1. Gallbladder. 2. Bile for culture Estimated Blood Loss: EBL {In ML}: 200 Blood Products Given: N/A Drains Used: Fabrice (#19 subhepatic) Post-Op Condition: Fair Date of Surgery/Procedure: 08/27/18 Time of Surgery/Procedure: 15:30
--- NOTE | 2018-08-27 16:09 | CP.PCM.PCO ---
Physician Communication Note - Physician Communication Note Physician Communication Note: Pt's son Carlo informed of intra-op bile leak/repair and pt will go to ICU
--- NOTE | 2018-08-27 16:43 | PN ---
DATE: 08/27/2018 SUBJECTIVE: The patient is chest pain free. PHYSICAL EXAMINATION: VITAL SIGNS: Blood pressure 143/74, heart rate in the 60s. NECK: Negative JVD. LUNGS: Without rales. HEART: S1, S2. EXTREMITIES: Without edema. LABORATORY DATA: Hemoglobin is 12.7. Chemistries, BUN and creatinine are 24 and 1.4. IMPRESSION: 1. Cholelithiasis. 2. Single-vessel coronary artery disease of the left anterior descending and a small posterior descending artery lesion. 3. Normal left ventricular function. 4. Recurrent abdominal pain. PLAN: Given these findings, the patient has been placed on aspirin and beta blockers. The patient is at increased risk for abdominal surgery. However, he optimal at this time. Maury Booker MD
--- NOTE | 2018-08-27 16:54 | RAD ---
Date of service: 08/27/2018 PROCEDURE: Fluoroscopy up to 1 hr HISTORY: R/O F.B. ([facility]) COMPARISON: TECHNIQUE: 5.1 sec of fluoro time. Cumulative dose 3.22 mGy. Eight images submitted FINDINGS: The study shows a retractor device in place. There is no evidence of a retained surgical instrument IMPRESSION: As above
--- NOTE | 2018-08-27 16:56 | RAD ---
Date of service: 08/27/2018 PROCEDURE: Operative cholangiogram HISTORY: ? CBD OBSTRUCTION / OPEN COMPARISON: TECHNIQUE: 40.9 sec of fluoro time. Cumulative dose 10.64 mGy. Four images were submitted FINDINGS: There are no filling defects seen in the common duct. There is a small amount of contrast in the duodenum IMPRESSION: As above
--- NOTE | 2018-08-27 20:23 | PN ---
DATE: 08/27/2018 SUBJECTIVE: The patient is seen earlier today in 575, bed 1, overall in poor condition, low-grade fevers and poor mentation. PHYSICAL EXAMINATION: VITAL SIGNS: Temperature is 98.9, blood pressure 130/70, respiratory rate 18, heart rate of 60. HEENT: Unremarkable. NECK: Supple. HEART: Normal S1, S2. LUNGS: Have decreased breath sounds. ABDOMEN: Soft, nontender. LABORATORY DATA: Reveals a white count of 11,400, hemoglobin of 12 and platelets of 276. Chemistries are noted and BUN of 24, creatinine of 1.4. Urinalysis is noted. Serology is noted. Microbiology reveals the blood cultures are negative. Urine cultures are negative. ASSESSMENT AND PLAN: This is an 88-year-old with acute cholecystitis, leukocytosis and sepsis and right-sided healthcare-associated pneumonia by history, chronic renal failure, hypertension, laparoscopic converted to open cholecystectomy, exploration of the biliary tree and cholangiogram, on Flagyl. Microbiology, blood cultures are negative. Urine cultures are negative. Chemistries are noted. We will follow with you. Review of orders confirms the patient to be on Flagyl and cefepime. Ebenezer Ledesma MD
[2018-08-27] MEDS: HYDROmorphone 0.2 mg/ml (30ml) 25 ML IV PRN (21:29)
[2018-08-27] MEDS: Cefepime 1gm in NS 100ml 1 GM/100 ML BAG IVPB SCH (22:59)
--- NOTE | 2018-08-28 02:04 | OP ---
PROCEDURE DATE: 08/27/2018 PREOPERATIVE DIAGNOSES: Nykfh-[id number] cholecystitis, cholelithiasis, and probably necrotic gallbladder. POSTOPERATIVE DIAGNOSES: [id number] cholecystitis, cholelithiasis, and probably necrotic gallbladder. OPERATION PERFORMED: Laparoscopic cholecystectomy, converted to open and repair of the liver bed. SURGEON: Kevon Lema MD ASSISTANTS: Alexi Jenkins DO and David Sullivan DO SECOND CO-SURGEON: Dr. Junior, Hepatobiliary DESCRIPTION OF PROCEDURE: In the operating room, the patient was identified by name, name of the procedure, laterality, my penny and the consent. The patient had a cardiac cath yesterday which showed no critical stenosis but diffuse disease, and the case was therefore urgent. Decision at that time included percutaneous drainage, but this will require another operation later on, and so we elected to go forward. In the operating room, the patient was prepped and then draped and waiting for 3 minutes. The laparoscopy was performed. It was reversed and through the Visiport entered into the abdomen, a xiphoid 5 that was eventually converted over to a 10/12 and two lateral 5's. The gallbladder was aspirated, removing 200 mL of bile from the necrotic-looking gallbladder. This was cultured aerobically and anaerobically. The fundus of the omentum was pulled down exposing the gallbladder, and eventually Prestige was placed on the infundibulum. The duodenum was swept away, and eventually we were able to find a nice plain between the duodenum as the presumptive common duct and the gallbladder. Dissection was slow at this point, although the omentum was swept down, and there was a clearly cirrhotic liver. The Prestige was changed to a tube. The Prestige was slipping off the infundibulum. The tube worked well for a while, and we were able to separate eventually the cystic duct very nicely from the rest of the structures. The peritoneum on either side was divided nicely under direct vision but with great difficulty, I still cannot feel the artery or separate the inferior edge of the gallbladder from the liver. We elected to open. Using the Bookwalter, the fundus and the infundibulum of the gallbladder were clamped, and we were able to sweep the gallbladder away using cautery. There was some bleeding. We had to stop several times and use the Surgicel. Eventually, we came down very nicely to the cystic duct. The cystic duct was circumscribed with a chromic and as we get edge of the liver, the artery was identified. It was circumscribed with another chromic. Dissection procedure, sweeping the peritoneum away posteriorly, the omentum was taken with Harmonic. I was very happy with it. The cystic duct was then clamped and doubly tied with chromic. Cystic artery was doubly clipped and divided. The gallbladder became intact. It was otherwise unremarkable. The area was packed with Surgicel. We closed both the xiphoid and the umbilicus under direct vision with the hand internally to close it completely with 0 Vicryl on a needle. At this point, packing was removed. The bile was seemed to be coming from the liver bed close to the cystic duct well away from the common. We could not really see where it was coming from. There was certainly no lumen that I could identify. The Bookwalter was retained. Dr. Junior, hepatobiliary surgeon, was asked for assistance. He came in, took down the falciform ligaments to expose the liver much nicer, and we had re-probed the area but no lumen could be found. Cholangiogram was then obtained. of the cystic duct. Cholangiogram was obtained using Rayna cyst duct clamp. This showed nothing going into the duodenum, but the right hepatic duct was beautiful. There was a leak identified at the liver bed but well away from the right hepatic duct. Left duct was atrophic and did not visualize very well. The cystic duct was then doubly clipped. A suture was placed in the liver bed and mattress stitch of 5-0 Vicryl which completely occluded the biliary problem. A drain was placed. It was copiously irrigated and dried. were removed. The posterior layer of 0-Vicryl was closed and anterior layer of #1 Novafil running was closed. The skin and subcutaneous tissue was closed. The skin was closed with clementina. The wound was injected with Marcaine. The patient was taken to the recovery room, planning to send him to the unit postop, waiting to see the family as we speak. Kevon Lema MD [facility] # [phone]
[2018-08-28] MEDS: metroNIDAZOLE IV 500 mg/100 ml 500 MG/100 ML BAG IVPB SCH ×3 (05:12→21:05)
[2018-08-28] MEDS: Lactated Ringer's 1,000 ML IV SCH ×4 (05:13→21:06)
[2018-08-28 06:44] LABS: HEMOGLOBIN 11.8 g/dL (14.0-18.0); MEAN CELL VOLUME 102.4 fl (80.0-105.0); MEAN CORPUSCULAR HGB CONC 31.2 g/dl (31.0-37.0); RBC 3.69 10^6/uL (3.5-6.1); RED CELL DISTRIBUTION WIDTH 15.3 % (11.5-14.5); WHITE BLOOD COUNT 19.9 10^3/uL (4.5-11.0)
[2018-08-28 06:50] LABS: ALB/GLOB RATIO 0.9 (1.1-1.8); CALCIUM 8.3 mg/dL (8.4-10.5)
[2018-08-28] MEDS: Insulin Reg-MEDIUM-Coverage SC SCH ×4 (07:30→21:38)
--- NOTE | 2018-08-28 07:48 | CP.PCM.PN ---
Subjective - Date & Time of Evaluation Date of Evaluation: 08/28/18 Time of Evaluation: 07:45 - Subjective Subjective: Surgery Progress note- Dr. Lema Patient seen and examined at bedside. Denies new complaints. currently AAOx3, GCS 15 non-focal. On Dilaudid HELIARC WELDER. Saturating 96% on RA. MAP > 70 throughout entire night. ABD dressing C/D/I no strikethrough. Fabrice 120cc of serosang bilious stained fluid. Tolerating clear liquid diet. Abdi in palce. Made 900cc of urine since surgery. Currently Urine is dark tiffany. AC on hold for now Denies: fevers, chills, nausea, vomiting, diarrhea Objective - Vital Signs/Intake and Output Vital Signs (last 24 hours): Temp Pulse Resp BP Pulse Ox 98.2 F 65 14 127/38 L 96 08/27/18 21:30 08/28/18 07:00 08/28/18 07:00 08/28/18 07:00 08/28/18 07:00 Intake and Output: 08/28/18 08/28/18 06:59 18:59 Intake Total 1880 Output Total 390 Balance 1490 - Medications Medications: Current Medications Aspirin (Aspirin Chewable) 81 mg PO DAILY ON LICENSE OF [facility] Last Admin: 08/26/18 14:18 Dose: 81 mg Enoxaparin Sodium (Lovenox) 40 mg SC DAILY ON LICENSE OF [facility]; Protocol Metronidazole (Flagyl) 500 mg in 100 mls @ 100 mls/hr IVPB Q8 SURI; Protocol Last Admin: 08/28/18 05:12 Dose: 100 mls/hr Lactated Ringer's (Lactated Ringer's) 1,000 mls @ 115 mls/hr IV .[id number] SURI Last Admin: 08/28/18 05:13 Dose: 115 mls/hr Cefepime HCl (Maxipime 1gm) 1 gm in 100 mls @ 100 mls/hr IVPB Q12 SURI; Protocol Stop: 09/03/18 13:01 Last Admin: 08/27/18 22:59 Dose: 100 mls/hr Hydromorphone HCl (Dilaudid 0.2 Mg/Ml Core Oven Tender) 25 mls @ 0 mls/hr IV PRN PRN; Protocol PRN Reason: HELIARC WELDER PER MD ORDER Last Admin: 08/27/18 21:29 Dose: 1 mls/hr Insulin Human Regular (Humulin R Med) 0 units SC ACHS ON LICENSE OF [facility]; Protocol Last Admin: 08/27/18 22:20 Dose: Not Given Ketorolac Tromethamine (Toradol) 30 mg IVP Q6 PRN PRN Reason: Pain, moderate (4-7) Metoclopramide HCl (Reglan) 10 mg IV ONCE PRN PRN Reason: Nausea/Vomiting Metoprolol Tartrate (Lopressor) 25 mg PO BID ON LICENSE OF [facility] Last Admin: 08/27/18 08:18 Dose: 25 mg Morphine Sulfate (Morphine) 4 mg IVP Q4H PRN PRN Reason: Pain, severe (8-10) Last Admin: 08/26/18 19:02 Dose: 4 mg Morphine Sulfate (Morphine) 2 mg IVP Q4H PRN PRN Reason: Anxiety Last Admin: 08/26/18 14:18 Dose: 2 mg - Labs Labs: 08/28/18 05:25 08/28/18 05:25 PT 15.9 SECONDS (9.4-12.5) H 08/27/18 07:40 INR 1.37 08/27/18 07:40 APTT 32.1 Seconds (25.1-36.5) 08/27/18 07:40 - Constitutional Appears: Non-toxic, No Acute Distress - Head Exam Head Exam: ATRAUMATIC - Eye Exam Eye Exam: EOMI. absent: Scleral icterus - ENT Exam ENT Exam: Mucous Membranes Moist - Respiratory Exam Respiratory Exam: NORMAL BREATHING PATTERN. absent: Accessory Muscle Use - Cardiovascular Exam Cardiovascular Exam: REGULAR RHYTHM, +S1, +S2. absent: Bradycardia, Tachycardia - GI/Abdominal Exam GI & Abdominal Exam: Guarding (voluntary guarding), Soft, Tenderness (appropria tely tender in RUQ around incision). absent: Distended, Firm - Extremities Exam Extremities Exam: absent: Calf Tenderness - Neurological Exam Neurological Exam: Awake, Oriented x3 - Psychiatric Exam Psychiatric exam: Normal Affect - Skin Skin Exam: Warm Assessment and Plan - Assessment and Plan (Free Text) Assessment: 88M s/p Lap Converted to open cholecystectomy w/ bile duct exploration Plan: - Pain control w/ Dilaudid HELIARC WELDER - Aggressive incentive spirometer use - maintain MAP > 65 - Strict I/O - monitor drain output; ensure drain does not turn bilious - advance to full liquid diet; as tolerated - keep abdi in for now, to monitor urine output - monitor H/H - remain on IV Abx - encourage out of bed and ambulation - further recs per Dr. Lema Surgical attending PGY2
--- NOTE | 2018-08-28 08:07 | CP.CCUPN ---
<Diego Davey - Last Filed: 08/28/18 12:06> CCU Subjective - Physician Review Subjective (Free Text): Diego Davey Internal Medicine Resident- Progress Note on Behalf of Critical Care Team Subjective: Patient seen and examined at bedside. No acute events overnight. Admits to baseline abdominal pain. Denies fever, chills, chest pain, SOB. 12 point ROS negative except as indicated in the HPI Physical Examination: - Constitutional Appears: Non-toxic, No Acute Distress, Younger Than Stated Age - Head Exam Head Exam: NORMAL INSPECTION - Eye Exam Eye Exam: Normal appearance - ENT Exam ENT Exam: Mucous Membranes Moist - Respiratory Exam Respiratory Exam: Clear to Auscultation Bilateral, NORMAL BREATHING PATTERN - Cardiovascular Exam Cardiovascular Exam: REGULAR RHYTHM, +S1, +S2 - GI/Abdominal Exam GI & Abdominal Exam: Normal Bowel Sounds, Soft, Tender to palpation Additional comments: Fabrice 120cc of serosang bilious stained fluid ABD dressing C/D/I no strikethrough - Extremities Exam Extremities exam: Positive for: normal inspection - Neurological Exam Neurological exam: Awake, alert, responds to verbal stimuli, follows commands - Skin Skin Exam: Normal Color, Warm Assessment and Plan: Patient is 88 year old male with a past medical history of atrial fibrillation on coumadin, CHF, DM, BPH, HTN who was admitted for evaluation of 10/10 constant RLQ, epigastric and LLQ abdominal pain. Patient was diagnosed with acute cholecystitis and reducible right inguinal hernia. Patient required cardiac clearance for surgery which led to a cardiac catherization. Cath revealed 70% stenosis in the distal LAD as well as diffusely diseased PAD with 60-70% stenosis in the midpoint. No stents placed. Elected to treat stable CAD with beta blockers and aspirin as opposed to stent placement. Patient thereafter underwent lap cholecystectomy which was converted to open cholecystectomy. Found to have necrotic gallbladder and cirrhotic liver. Neuro: - awake, alert - GCS 15 Cardiovascular CAD, Afib on A/C, PPM - continue lopresor 25 mg PO BID, - continue aspirin 81mg PO Daily - maintain MAP > 65 - Strict I/O - lovenox 80mg SC x 1 to transition back onto warfarin - start home warfarin 4mg today - check INR in AM- if subtherapeutic continue therapeutic lovenox - cardio consulted (Dr. Booker)- appreciate recommendations-recommends troponins be trended GI Necrotic Gallbladder, Liver Cirrhosis - continue pain control with diluadid store team leader pump - advance diet to liquids - continue IVF LR @115cc/hr - continue flagyl 500mg IV q8 and cefepime 1gram IV q12h - monitor drain output - general surgery consulted- appreciate recommendations Prophylaxis - recommend famotidine Renal ABEL on CKD - bun and creatinine uptrending from baseline - likely pre-renal from operative losses - continue IVF LR @115cc/hr Heme Prophyaxis - lovenox Dispo: patient is hemodynamically stable for discharge to [facility]. Patient case discussed with and plan approved by attending physician, Dr. Bonilla. CCU Objective - Vital Signs / Intake & Output Vital Signs (Last 4 hours): Vital Signs Pulse Resp BP Pulse Ox 08/28/18 07:00 65 14 127/38 L 96 08/28/18 06:50 62 19 97 08/28/18 06:40 61 14 96 08/28/18 06:30 60 15 110/40 L 96 08/28/18 06:20 60 16 96 08/28/18 06:10 60 14 95 08/28/18 06:00 60 14 118/49 L 95 08/28/18 05:50 60 22 93 L 08/28/18 05:40 61 14 94 L 08/28/18 05:30 65 18 117/78 08/28/18 05:20 62 23 95 08/28/18 05:10 61 15 96 08/28/18 05:00 61 31 H 113/51 L 96 08/28/18 04:50 65 16 96 08/28/18 04:40 65 19 97 08/28/18 04:30 60 15 127/46 L 96 08/28/18 04:20 61 16 96 08/28/18 04:10 60 16 97 08/28/18 04:00 60 16 118/46 L 90 L 08/28/18 03:50 65 12 96 08/28/18 03:40 68 15 96 08/28/18 03:30 71 24 129/55 L 96 08/28/18 03:20 61 20 96 Intake and Output (Last 8hrs): Intake & Output 08/27/18 08/28/18 08/28/18 22:59 06:59 14:59 Intake Total 225 1880 Output Total 640 390 Balance -415 1490 Weight 170 lb 6.4 oz Intake: IV 225 1680 Left Hand 225 1680 Oral 200 Output: Drainage 40 90 Right Abdomen 40 90 Urine 600 300 Urine, Voided 400 300 Other: # Bowel Movements 0 0 - Physical Exam Head: Positive for: Atraumatic, Normocephalic Pupils: Positive for: PERRL Extroacular Muscles: Positive for: EOMI Conjunctiva: Positive for: Normal Mouth: Positive for: Moist Mucous Membranes Neck: Positive for: Normal Range of Motion Respiratory/Chest: Positive for: Clear to Auscultation, Good Air Exchange. Negative for: Respiratory Distress, Accessory Muscle Use Cardiovascular: Positive for: Regular Rate and Rhythm, Normal S1, S2. Negative for: Murmurs Abdomen: Positive for: Tenderness (RLQ/LLQ ). Negative for: Distention, Periton eal Signs, Rebound, Guarding Back: Positive for: Normal Inspection Upper Extremity: Positive for: Normal Inspection. Negative for: Cyanosis, Edema Lower Extremity: Positive for: Normal Inspection. Negative for: Edema Neurological: Positive for: GCS=15, CN II-XII Intact, Speech Normal Skin: Positive for: Warm, Dry, Normal Color. Negative for: Rashes Psychiatric: Positive for: Alert, Oriented x 3, Normal Insight, Normal Concentration - Medications Active Medications: Active Medications Generic Name Dose Route Start Last Admin Trade Name Freq PRN Reason Stop Dose Admin Aspirin 81 mg 08/26/18 11:30 08/26/18 14:18 Aspirin Chewable PO 81 mg DAILY [facility] Administration Enoxaparin Sodium 40 mg 08/28/18 10:00 Lovenox SC DAILY [facility] Protocol Metronidazole 500 mg in 100 mls @ 100 mls/hr 08/25/18 06:30 08/28/18 05:12 Flagyl IVPB 100 mls/hr Q8 [facility] Administration Protocol Lactated Ringer's 1,000 mls @ 115 mls/hr 08/25/18 06:30 08/28/18 05:13 Lactated Ringer's IV 115 mls/hr .Q8H42M [facility] Administration Cefepime HCl 1 gm in 100 mls @ 100 mls/hr 08/25/18 13:00 08/27/18 22:59 Maxipime 1gm IVPB 09/03/18 13:01 100 mls/hr Q12 [facility] Administration Protocol Hydromorphone HCl 25 mls @ 0 mls/hr 08/27/18 15:12 08/27/18 21:29 Dilaudid 0.2 Mg/Ml Development Editor IV 1 mls/hr PRN PRN Administration [employer] PER MD ORDER Protocol Per Protocol Insulin Human Regular 0 units 08/25/18 11:30 08/27/18 22:20 Humulin R Med SC Not Given ACHS [facility] Protocol Ketorolac Tromethamine 30 mg 08/25/18 06:16 Toradol IVP Q6 PRN Pain, moderate (4-7) Metoclopramide HCl 10 mg 08/27/18 15:10 Reglan IV ONCE PRN Nausea/Vomiting Metoprolol Tartrate 25 mg 08/26/18 11:30 08/27/18 08:18 Lopressor PO 25 mg BID [facility] Administration Morphine Sulfate 4 mg 08/25/18 06:16 08/26/18 19:02 Morphine IVP 4 mg Q4H PRN Administration Pain, severe (8-10) Morphine Sulfate 2 mg 08/25/18 10:07 08/26/18 14:18 Morphine IVP 2 mg Q4H PRN Administration Anxiety - Patient Studies Lab Studies: Microbiology Studies 08/25/18 13:30 Blood Culture - Preliminary Blood NO GROWTH AFTER 48 HOURS 08/25/18 13:00 Blood Culture - Preliminary Blood NO GROWTH AFTER 48 HOURS Lab Studies 08/28/18 08/28/18 08/27/18 Range/Units 05:25 05:25 22:41 WBC 19.9 H D (4.5-11.0) 10^3/uL RBC 3.69 (3.5-6.1) 10^6/uL Hgb 11.8 L (14.0-18.0) g/dL Hct 37.8 L (42.0-52.0) % MCV 102.4 (80.0-105.0) fl MCH 32.0 (25.0-35.0) pg MCHC 31.2 (31.0-37.0) g/dl RDW 15.3 H (11.5-14.5) % Plt Count 338 (120.0-450.0) 10^3/uL MPV 11.0 (7.0-11.0) fl PT (9.4-12.5) SECONDS INR APTT (25.1-36.5) Seconds Sodium 140 (132-148) mmol/L Potassium 4.9 (3.6-5.0) mmol/L Chloride 107 (98-107) mmol/L Carbon Dioxide 29 (21-33) mmol/L Anion Gap 9 L (10-20) BUN 32 H (7-21) mg/dL Creatinine 1.8 H (0.8-1.5) mg/dl Est GFR ( Amer) 43 Est GFR (Non-Af Amer) 36 POC Glucose (mg/dL) 131 H (65-110) mg/dL Random Glucose 121 H (70-110) mg/dL Calcium 8.3 L (8.4-10.5) mg/dL Total Bilirubin 0.8 (0.2-1.3) mg/dL AST 48 (17-59) U/L ALT 45 (7-56) U/L Alkaline Phosphatase 116 (38-126) U/L Total Protein 6.5 (5.8-8.3) g/dL Albumin 3.0 (3.0-4.8) g/dL Globulin 3.5 gm/dL Albumin/Globulin Ratio 0.9 L (1.1-1.8) Blood Type Antibody Screen BBK History Checked 08/27/18 08/27/18 08/27/18 Range/Units 16:58 07:40 07:40 WBC (4.5-11.0) 10^3/uL RBC (3.5-6.1) 10^6/uL Hgb (14.0-18.0) g/dL Hct (42.0-52.0) % MCV (80.0-105.0) fl MCH (25.0-35.0) pg MCHC (31.0-37.0) g/dl RDW (11.5-14.5) % Plt Count (120.0-450.0) 10^3/uL MPV (7.0-11.0) fl PT 15.9 H (9.4-12.5) SECONDS INR 1.37 APTT 32.1 (25.1-36.5) Seconds Sodium (132-148) mmol/L Potassium (3.6-5.0) mmol/L Chloride (98-107) mmol/L Carbon Dioxide (21-33) mmol/L Anion Gap (10-20) BUN (7-21) mg/dL Creatinine (0.8-1.5) mg/dl Est GFR ( Amer) Est GFR (Non-Af Amer) POC Glucose (mg/dL) 143 H (65-110) mg/dL Random Glucose (70-110) mg/dL Calcium (8.4-10.5) mg/dL Total Bilirubin (0.2-1.3) mg/dL AST (17-59) U/L ALT (7-56) U/L Alkaline Phosphatase (38-126) U/L Total Protein (5.8-8.3) g/dL Albumin (3.0-4.8) g/dL Globulin gm/dL Albumin/Globulin Ratio (1.1-1.8) Blood Type A NEGATIVE Antibody Screen Negative BBK History Checked Patient has bt 08/27/18 08/27/18 Range/Units 07:40 07:40 WBC 11.4 H (4.5-11.0) 10^3/uL RBC 3.93 (3.5-6.1) 10^6/uL Hgb 12.7 L (14.0-18.0) g/dL Hct 39.5 L (42.0-52.0) % MCV 100.5 (80.0-105.0) fl MCH 32.3 (25.0-35.0) pg MCHC 32.2 (31.0-37.0) g/dl RDW 15.1 H (11.5-14.5) % Plt Count 276 (120.0-450.0) 10^3/uL MPV 10.7 (7.0-11.0) fl PT (9.4-12.5) SECONDS INR APTT (25.1-36.5) Seconds Sodium 140 (132-148) mmol/L Potassium 4.4 (3.6-5.0) mmol/L Chloride 105 (98-107) mmol/L Carbon Dioxide 29 (21-33) mmol/L Anion Gap 10 (10-20) BUN 24 H (7-21) mg/dL Creatinine 1.4 (0.8-1.5) mg/dl Est GFR ( Amer) 58 Est GFR (Non-Af Amer) 48 POC Glucose (mg/dL) (65-110) mg/dL Random Glucose 95 (70-110) mg/dL Calcium 8.6 (8.4-10.5) mg/dL Total Bilirubin 1.0 (0.2-1.3) mg/dL AST 38 (17-59) U/L ALT 37 (7-56) U/L Alkaline Phosphatase 133 H (38-126) U/L Total Protein 7.1 (5.8-8.3) g/dL Albumin 3.4 (3.0-4.8) g/dL Globulin 3.8 gm/dL Albumin/Globulin Ratio 0.9 L (1.1-1.8) Blood Type Antibody Screen BBK History Checked Laboratory Results - last 24 hr 08/27/18 08/27/18 08/27/18 07:40 07:40 07:40 WBC 11.4 H RBC 3.93 Hgb 12.7 L Hct 39.5 L MCV 100.5 MCH 32.3 MCHC 32.2 RDW 15.1 H Plt Count 276 MPV 10.7 PT 15.9 H INR 1.37 APTT 32.1 Sodium 140 Potassium 4.4 Chloride 105 Carbon Dioxide 29 Anion Gap 10 BUN 24 H Creatinine 1.4 Est GFR ( Amer) 58 Est GFR (Non-Af Amer) 48 POC Glucose (mg/dL) Random Glucose 95 Calcium 8.6 Total Bilirubin 1.0 AST 38 ALT 37 Alkaline Phosphatase 133 H Total Protein 7.1 Albumin 3.4 Globulin 3.8 Albumin/Globulin Ratio 0.9 L Blood Type Antibody Screen BBK History Checked 08/27/18 08/27/18 08/27/18 07:40 16:58 22:41 WBC RBC Hgb Hct MCV MCH MCHC RDW Plt Count MPV PT INR APTT Sodium Potassium Chloride Carbon Dioxide Anion Gap BUN Creatinine Est GFR ( Amer) Est GFR (Non-Af Amer) POC Glucose (mg/dL) 143 H 131 H Random Glucose Calcium Total Bilirubin AST ALT Alkaline Phosphatase Total Protein Albumin Globulin Albumin/Globulin Ratio Blood Type A NEGATIVE Antibody Screen Negative BBK History Checked Patient has bt 08/28/18 08/28/18 05:25 05:25 WBC 19.9 H D RBC 3.69 Hgb 11.8 L Hct 37.8 L MCV 102.4 MCH 32.0 MCHC 31.2 RDW 15.3 H Plt Count 338 MPV 11.0 PT INR APTT Sodium 140 Potassium 4.9 Chloride 107 Carbon Dioxide 29 Anion Gap 9 L BUN 32 H Creatinine 1.8 H Est GFR ( Amer) 43 Est GFR (Non-Af Amer) 36 POC Glucose (mg/dL) Random Glucose 121 H Calcium 8.3 L Total Bilirubin 0.8 AST 48 ALT 45 Alkaline Phosphatase 116 Total Protein 6.5 Albumin 3.0 Globulin 3.5 Albumin/Globulin Ratio 0.9 L Blood Type Antibody Screen BBK History Checked Radiology Impressions: Radiology Impressions Cholangiogram,Operative 08/27/18 13:01 IMPRESSION: As above Fluoroscopy 08/27/18 13:48 IMPRESSION: As above Fingerstick Blood Sugar Results: 131 Critical Care Progress Note - Nutrition Nutrition: Nutrition Category Date Time Status Liquid Diet [DIET] Diets 08/27/18 Dinner Ordered <Italo Bonilla - Last Filed: 08/28/18 17:43> CCU Objective - Vital Signs / Intake & Output Vital Signs (Last 4 hours): Vital Signs Temp Pulse Resp BP Pulse Ox 08/28/18 15:30 62 127/52 L 97 08/28/18 15:20 68 12 97 08/28/18 15:10 60 18 96 08/28/18 15:00 98.2 F 63 16 109/52 L 97 08/28/18 14:50 67 17 90 L 08/28/18 14:40 62 16 90 L 08/28/18 14:30 63 19 109/52 L 92 L 08/28/18 14:20 62 12 97 08/28/18 14:10 62 17 94 L 08/28/18 14:00 60 18 119/52 L 95 08/28/18 13:50 64 18 96 08/28/18 13:44 128 H Intake and Output (Last 8hrs): Intake & Output 08/28/18 08/28/18 08/28/18 06:59 14:59 22:59 Intake Total 1880 1840 Output Total 390 290 Balance 1490 1550 Weight 77.292 kg Intake: IV 1680 1500 Left Hand 1680 Right Wrist 1500 Oral 200 340 Output: Drainage 90 40 Right Abdomen 90 40 Urine 300 250 Urine, Voided 300 250 Other: # Bowel Movements 0 - Medications Active Medications: Active Medications Generic Name Dose Route Start Last Admin Trade Name Freq PRN Reason Stop Dose Admin Aspirin 81 mg 08/26/18 11:30 01/09/19 10:06 Aspirin Chewable PO 81 mg DAILY [facility] Administration Metronidazole 500 mg in 100 mls @ 100 mls/hr 08/25/18 06:30 08/28/18 13:56 Flagyl IVPB 100 mls/hr Q8 [facility] Administration Protocol Lactated Ringer's 1,000 mls @ 115 mls/hr 08/25/18 06:30 08/28/18 14:00 Lactated Ringer's IV 115 mls/hr .Q8H42M [facility] Administration Cefepime HCl 1 gm in 100 mls @ 100 mls/hr 08/25/18 13:00 08/28/18 10:07 Maxipime 1gm IVPB 09/03/18 13:01 100 mls/hr Q12 [facility] Administration Protocol Hydromorphone HCl 25 mls @ 0 mls/hr 08/27/18 15:12 08/27/18 21:29 Dilaudid 0.2 Mg/Ml Development Editor IV 1 mls/hr PRN PRN Administration [employer] PER MD ORDER Protocol Per Protocol Insulin Human Regular 0 units 08/25/18 11:30 08/28/18 16:44 Humulin R Med SC Not Given [facility] Protocol Ketorolac Tromethamine 30 mg 08/25/18 06:16 Toradol IVP Q6 PRN Pain, moderate (4-7) Metoclopramide HCl 10 mg 08/27/18 15:10 Reglan IV ONCE PRN Nausea/Vomiting Metoprolol Tartrate 25 mg 08/26/18 11:30 08/28/18 10:06 Lopressor PO 25 mg BID [facility] Administration Morphine Sulfate 4 mg 08/25/18 06:16 08/26/18 19:02 Morphine IVP 4 mg Q4H PRN Administration Pain, severe (8-10) Morphine Sulfate 2 mg 08/25/18 10:07 08/26/18 14:18 Morphine IVP 2 mg Q4H PRN Administration Anxiety Warfarin Sodium 4 mg 08/28/18 18:00 Coumadin PO 1800 [facility] - Patient Studies Lab Studies: Microbiology Studies 08/25/18 13:30 Blood Culture - Preliminary Blood NO GROWTH AFTER 3 DAYS 08/25/18 13:00 Blood Culture - Preliminary Blood NO GROWTH AFTER 3 DAYS Lab Studies 08/28/18 08/28/18 08/28/18 Range/Units 16:21 13:00 10:58 WBC (4.5-11.0) 10^3/uL RBC (3.5-6.1) 10^6/uL Hgb (14.0-18.0) g/dL Hct (42.0-52.0) % MCV (80.0-105.0) fl MCH (25.0-35.0) pg MCHC (31.0-37.0) g/dl RDW (11.5-14.5) % Plt Count (120.0-450.0) 10^3/uL MPV (7.0-11.0) fl Sodium (132-148) mmol/L Potassium (3.6-5.0) mmol/L Chloride (98-107) mmol/L Carbon Dioxide (21-33) mmol/L Anion Gap (10-20) BUN (7-21) mg/dL Creatinine (0.8-1.5) mg/dl Est GFR ( Amer) Est GFR (Non-Af Amer) POC Glucose (mg/dL) 147 H 152 H (65-110) mg/dL Random Glucose (70-110) mg/dL Calcium (8.4-10.5) mg/dL Total Bilirubin (0.2-1.3) mg/dL AST (17-59) U/L ALT (7-56) U/L Alkaline Phosphatase (38-126) U/L Troponin I 0.02 D ng/mL Total Protein (5.8-8.3) g/dL Albumin (3.0-4.8) g/dL Globulin gm/dL Albumin/Globulin Ratio (1.1-1.8) 08/28/18 08/28/18 08/28/18 Range/Units 07:36 05:25 05:25 WBC 19.9 H D (4.5-11.0) 10^3/uL RBC 3.69 (3.5-6.1) 10^6/uL Hgb 11.8 L (14.0-18.0) g/dL Hct 37.8 L (42.0-52.0) % MCV 102.4 (80.0-105.0) fl MCH 32.0 (25.0-35.0) pg MCHC 31.2 (31.0-37.0) g/dl RDW 15.3 H (11.5-14.5) % Plt Count 338 (120.0-450.0) 10^3/uL MPV 11.0 (7.0-11.0) fl Sodium 140 (132-148) mmol/L Potassium 4.9 (3.6-5.0) mmol/L Chloride 107 (98-107) mmol/L Carbon Dioxide 29 (21-33) mmol/L Anion Gap 9 L (10-20) BUN 32 H (7-21) mg/dL Creatinine 1.8 H (0.8-1.5) mg/dl Est GFR ( Amer) 43 Est GFR (Non-Af Amer) 36 POC Glucose (mg/dL) 104 (65-110) mg/dL Random Glucose 121 H (70-110) mg/dL Calcium 8.3 L (8.4-10.5) mg/dL Total Bilirubin 0.8 (0.2-1.3) mg/dL AST 48 (17-59) U/L ALT 45 (7-56) U/L Alkaline Phosphatase 116 (38-126) U/L Troponin I ng/mL Total Protein 6.5 (5.8-8.3) g/dL Albumin 3.0 (3.0-4.8) g/dL Globulin 3.5 gm/dL Albumin/Globulin Ratio 0.9 L (1.1-1.8) 08/27/18 Range/Units 22:41 WBC (4.5-11.0) 10^3/uL RBC (3.5-6.1) 10^6/uL Hgb (14.0-18.0) g/dL Hct (42.0-52.0) % MCV (80.0-105.0) fl MCH (25.0-35.0) pg MCHC (31.0-37.0) g/dl RDW (11.5-14.5) % Plt Count (120.0-450.0) 10^3/uL MPV (7.0-11.0) fl Sodium (132-148) mmol/L Potassium (3.6-5.0) mmol/L Chloride (98-107) mmol/L Carbon Dioxide (21-33) mmol/L Anion Gap (10-20) BUN (7-21) mg/dL Creatinine (0.8-1.5) mg/dl Est GFR ( Amer) Est GFR (Non-Af Amer) POC Glucose (mg/dL) 131 H (65-110) mg/dL Random Glucose (70-110) mg/dL Calcium (8.4-10.5) mg/dL Total Bilirubin (0.2-1.3) mg/dL AST (17-59) U/L ALT (7-56) U/L Alkaline Phosphatase (38-126) U/L Troponin I ng/mL Total Protein (5.8-8.3) g/dL Albumin (3.0-4.8) g/dL Globulin gm/dL Albumin/Globulin Ratio (1.1-1.8) Laboratory Results - last 24 hr 08/27/18 08/28/18 08/28/18 22:41 05:25 05:25 WBC 19.9 H D RBC 3.69 Hgb 11.8 L Hct 37.8 L MCV 102.4 MCH 32.0 MCHC 31.2 RDW 15.3 H Plt Count 338 MPV 11.0 Sodium 140 Potassium 4.9 Chloride 107 Carbon Dioxide 29 Anion Gap 9 L BUN 32 H Creatinine 1.8 H Est GFR ( Amer) 43 Est GFR (Non-Af Amer) 36 POC Glucose (mg/dL) 131 H Random Glucose 121 H Calcium 8.3 L Total Bilirubin 0.8 AST 48 ALT 45 Alkaline Phosphatase 116 Troponin I Total Protein 6.5 Albumin 3.0 Globulin 3.5 Albumin/Globulin Ratio 0.9 L 08/28/18 08/28/18 08/28/18 07:36 10:58 13:00 WBC RBC Hgb Hct MCV MCH MCHC RDW Plt Count MPV Sodium Potassium Chloride Carbon Dioxide Anion Gap BUN Creatinine Est GFR ( Amer) Est GFR (Non-Af Amer) POC Glucose (mg/dL) 104 152 H Random Glucose Calcium Total Bilirubin AST ALT Alkaline Phosphatase Troponin I 0.02 D Total Protein Albumin Globulin Albumin/Globulin Ratio 08/28/18 16:21 WBC RBC Hgb Hct MCV MCH MCHC RDW Plt Count MPV Sodium Potassium Chloride Carbon Dioxide Anion Gap BUN Creatinine Est GFR ( Amer) Est GFR (Non-Af Amer) POC Glucose (mg/dL) 147 H Random Glucose Calcium Total Bilirubin AST ALT Alkaline Phosphatase Troponin I Total Protein Albumin Globulin Albumin/Globulin Ratio Critical Care Progress Note - Nutrition Nutrition: Nutrition Category Date Time Status Heart Healthy Diet [DIET] Diets 08/28/18 Lunch Active Addendum Addendum: 08/28/18 17:43 ICU Attending Addendum Patient seen and examined. Case reviewed on round with housestaff. Agree with resident note above with the following additions/exceptions: CAD CKD Afib on A/C PPM s/p parker Recommend: - supp o2 as needed, duonebs PRN - abx as per ID - BP control - cont coumadin bridge with lovenox if ok with surg to anticoagulate - post op mgmt as per surgery - pain control, dilaudid pump - IVF - GI ppx - DVT ppx ok to transfer out of icu Rest of care as above Italo Bonilla MD Pulmonary Critical Care and Sleep Medicine
[2018-08-28] MEDS ORDERED: Enoxaparin 40 mg Syringe SC SCH (10:00)
[2018-08-28] MEDS: Cefepime 1gm in NS 100ml 1 GM/100 ML BAG IVPB SCH ×2 (10:07→21:05)
--- NOTE | 2018-08-28 10:16 | PN ---
DATE: 08/28/2018 SUBJECTIVE: The patient is in bed in no acute distress. Seen in [facility], bed 2. No fevers, is comfortable. PHYSICAL EXAMINATION: VITAL SIGNS: Temperature is 98, blood pressure is 120/70, respiratory 16. HEENT: Unremarkable. NECK: Supple. LUNGS: Have decreased breath sounds. HEART: Normal. S1, S2. ABDOMEN: Soft, nontender. LABORATORY DATA: Laboratory examination reveals the white count is up 19,900, hemoglobin of 11, platelets of 338, BUN of 32, creatinine of 1.8. The patient's lipase is normal. Urinalysis is noted and serology is negative. Microbiology, blood cultures are negative, urine cultures are negative; and review of orders reveals the patient to be on cefepime and Flagyl. ASSESSMENT AND PLAN: This is an 88-year-old with acute cholecystitis and sepsis with right-sided healthcare-associated pneumonia by history, chronic renal failure, hypertension, status post open cholecystectomy and exploration of biliary tree and cholangiogram, on cefepime and Flagyl, negative cultures. The patient does have leukocytosis. The patient's white count is up to 19,900. We will continue antibiotics pending clinical followup and follow the CBC and will review the pathology report. Dr. Dumont note is reviewed. He makes a note of the intraoperative bile leak and repair. Dr. David Sullivan's note is reviewed. Dr. Kevon Lema's note is reviewed. He identifies a leak, identified in the liver bed. Will follow closely with you. Ebenezer Ledesma MD
[2018-08-28] MEDS ORDERED: Sodium Chloride 0.9% 500 ML IV STA (11:07)
--- NOTE | 2018-08-28 12:05 | PN ---
DATE: 08/28/2018 CARDIOLOGY FOLLOWUP SUBJECTIVE: The patient underwent an open cholecystectomy yesterday, he is currently in the ICU. The patient is sedated without dyspnea. PHYSICAL EXAMINATION: VITAL SIGNS: Blood pressure 105/44, the heart rate is in the 60s. NECK: Negative JVD. LUNGS: Decreased breath sounds. HEART: Reveals S1, S2. EXTREMITIES: Without edema. LABORATORY DATA: BUN and creatinine are up to 32 and 1.8, glucose is 121, hemoglobin is 11.8, white count is up to 19,000. IMPRESSION: 1. Status post cholecystectomy. 2. Oliguria. 3. Prerenal azotemia. 4. Documented 70% to 80% stenosis of the distal left anterior descending. 5. Normal left ventricular function. PLAN: Given these findings, we will give the patient IV fluids. We will give a bolus of 200 mL today. The patient should be able to tolerate IV fluids given his normal LV function. Maury Booker MD
[2018-08-28] MEDS ORDERED: Enoxaparin 80 mg Syringe SC STA (12:07)
--- NOTE | 2018-08-28 12:59 | PN ---
DATE: 08/28/2018 SUBJECTIVE: He is in the intensive care unit. He is status post an open cholecystectomy. He is on aspirin, Dilaudid, Flagyl, insulin, lactated Ringer's, Lopressor, Lovenox, Maxipime, morphine, Reglan, and Toradol. He is alert, not clear fluids in front of him, hope he will take some of that. He is uncomfortable, getting pain meds via abdomen surgery. PHYSICAL EXAMINATION: VITAL SIGNS: He has 98.2 temp, 60 pulse, 129/42 blood pressure, 92% O2 sat. HEENT: His head is atraumatic, normocephalic. He is alert, fairly uncomfortable. HEART: Regular rate. LUNGS: Decreased breath sounds. I asked him to take deep breaths 10 times every hour so he does not develop pneumonia. ABDOMEN: Decreased bowel sounds and soft. He is bandaged. He had an open cholecystectomy. LABORATORY DATA: He has a 19.9 white count, 11.8 hemoglobin, 37.8 hematocrit, 238 platelets. He has 140 sodium, potassium 4.9, BUN 32, creatinine 1.8, GFR is down to 36, sugar is 104, calcium is 8.3, total bili is 0.8, AST is 48, ALT is 45, alk phos 116, and total protein is 6.5. ASSESSMENT AND PLAN: He is being seen by Infectious Disease, Surgery, Cardiology. His white count went up to 19. He is on intravenous antibiotics. Kidney functions are a little bit elevated, that should hopefully come down with the intravenous fluids and hopefully he will improve. Dieter Griggs DO MTDNeo
[2018-08-28] MEDS ORDERED: Enoxaparin 40 mg Syringe SC STA (14:05)
[2018-08-29] MEDS: HYDROmorphone 0.2 mg/ml (30ml) 25 ML IV PRN (04:20)
[2018-08-29] MEDS: metroNIDAZOLE IV 500 mg/100 ml 500 MG/100 ML BAG IVPB SCH ×3 (05:14→21:10)
[2018-08-29 07:12] LABS: HEMOGLOBIN 10.4 g/dL (14.0-18.0); MEAN CELL VOLUME 103.4 fl (80.0-105.0); MEAN CORPUSCULAR HEMOGLOBIN 32.4 pg (25.0-35.0); MEAN CORPUSCULAR HGB CONC 31.3 g/dl (31.0-37.0); MEAN PLATELET VOLUME 10.1 fl (7.0-11.0); RBC 3.21 10^6/uL (3.5-6.1); RED CELL DISTRIBUTION WIDTH 15.4 % (11.5-14.5); WHITE BLOOD COUNT 13.9 10^3/uL (4.5-11.0)
[2018-08-29 07:17] LABS: INR 1.36; PROTHROMBIN TIME 15.7 SECONDS (9.4-12.5)
--- NOTE | 2018-08-29 07:24 | CP.PCM.PN ---
Subjective - Date & Time of Evaluation Date of Evaluation: 08/29/18 Time of Evaluation: 07:17 - Subjective Subjective: Surgery Progress note- Dr. Lema Patient seen and examined at bedside. Transferred from ICU to [facility] yesterday. AAOx3, adequate pain control w/ Dilaudid BUS ESCORT. Patient states pain only with movement . Tolerating diet, denies appetite at this time. Denies nausea, vomiting, fevers chills. Fabrice 35cc serosang. Urine, abdi in palce 575cc/24hr of dark urine. Objective - Vital Signs/Intake and Output Vital Signs (last 24 hours): Temp Pulse Resp BP Pulse Ox 98.1 F 65 19 129/63 95 08/29/18 05:48 08/29/18 05:48 08/29/18 05:48 08/29/18 05:48 08/29/18 05:48 Intake and Output: 08/29/18 08/29/18 06:59 18:59 Intake Total 2554 Output Total 650 Balance 1904 - Medications Medications: Current Medications Aspirin (Aspirin Chewable) 81 mg PO DAILY [facility] Last Admin: 08/28/18 10:06 Dose: 81 mg Metronidazole (Flagyl) 500 mg in 100 mls @ 100 mls/hr IVPB Q8 [facility]; Protocol Last Admin: 08/29/18 05:14 Dose: 100 mls/hr Lactated Ringer's (Lactated Ringer's) 1,000 mls @ 115 mls/hr IV [id number] [facility] Last Admin: 08/28/18 21:06 Dose: 115 mls/hr Cefepime HCl (Maxipime 1gm) 1 gm in 100 mls @ 100 mls/hr IVPB Q12 [facility]; Protocol Stop: 09/03/18 13:01 Last Admin: 08/28/18 21:05 Dose: 100 mls/hr Hydromorphone HCl (Dilaudid 0.2 Mg/Ml Reverser) 25 mls @ 0 mls/hr IV PRN PRN; Protocol PRN Reason: BUS ESCORT PER MD ORDER Last Admin: 08/29/18 04:20 Dose: 1 mls/hr Insulin Human Regular (Humulin R Med) 0 units SC ACHS [facility]; Protocol Last Admin: 08/28/18 21:38 Dose: Not Given Ketorolac Tromethamine (Toradol) 30 mg IVP Q6 PRN PRN Reason: Pain, moderate (4-7) Last Admin: 08/29/18 03:55 Dose: 30 mg Metoclopramide HCl (Reglan) 10 mg IV ONCE PRN PRN Reason: Nausea/Vomiting Metoprolol Tartrate (Lopressor) 25 mg PO BID [facility] Last Admin: 08/28/18 18:12 Dose: Not Given Morphine Sulfate (Morphine) 4 mg IVP Q4H PRN PRN Reason: Pain, severe (8-10) Last Admin: 08/26/18 19:02 Dose: 4 mg Morphine Sulfate (Morphine) 2 mg IVP Q4H PRN PRN Reason: Anxiety Last Admin: 08/26/18 14:18 Dose: 2 mg Warfarin Sodium (Coumadin) 4 mg PO 1800 [facility] Last Admin: 08/28/18 17:46 Dose: 4 mg - Labs Labs: 08/29/18 06:30 08/28/18 05:25 PT 15.7 SECONDS (9.4-12.5) H 08/29/18 06:30 INR 1.36 08/29/18 06:30 APTT 32.1 Seconds (25.1-36.5) 08/27/18 07:40 - Constitutional Appears: Non-toxic, No Acute Distress - Head Exam Head Exam: ATRAUMATIC - Eye Exam Eye Exam: EOMI. absent: Scleral icterus - ENT Exam ENT Exam: Mucous Membranes Moist - Respiratory Exam Respiratory Exam: NORMAL BREATHING PATTERN ( ). absent: Accessory Muscle Use, Respiratory Distress - GI/Abdominal Exam GI & Abdominal Exam: Soft, Tenderness (appropriately tender around incision). absent: Distended, Firm, Guarding, Rigid - Back Exam Back Exam: NORMAL INSPECTION - Neurological Exam Neurological Exam: Alert, Awake, Oriented x3 - Psychiatric Exam Psychiatric exam: Normal Affect - Skin Skin Exam: Intact, Warm Assessment and Plan - Assessment and Plan (Free Text) Assessment: 88M s/p Lap Converted to open cholecystectomy w/ bile duct exploration POD#2 Plan: - Pain control w/ Dilaudid BUS ESCORT - de-esclate Pain meds - Aggressive incentive spirometer use - maintain MAP > 65 - Strict I/O - monitor drain output; ensure drain does not turn bilious - advance to full liquid diet; as tolerated - keep abdi in for now, to monitor urine output - monitor H/H - f/u INR; plan to administer therapeutic lovenox if INR sub-therapeutic - remain on IV Abx - encourage out of bed and ambulation - further recs per Dr. Lema Surgical attending PGY2
[2018-08-29] MEDS: Lactated Ringer's 1,000 ML IV SCH (07:30)
[2018-08-29] MEDS: Insulin Reg-MEDIUM-Coverage SC SCH ×4 (07:30→22:00)
[2018-08-29 07:39] LABS: ALB/GLOB RATIO 0.8 (1.1-1.8); ALBUMIN 2.8 g/dL (3.0-4.8); CALCIUM 8.1 mg/dL (8.4-10.5)
--- NOTE | 2018-08-29 10:36 | CP.PCM.APN ---
Subjective - Date & Time of Evaluation Date of Evaluation: 08/29/18 Time of Evaluation: 09:30 - Subjective Subjective: pt seen and examined at bedside, pt being washed. Spoke to pt in greenlandic - states he feels "regular" and offers no other complaints Review of Systems - Constitutional Constitutional: absent: As Per HPI, Anorexia, Chills, Daytime Sleepiness, Excessive Sweating, Fatigue, Fever, Frequent Falls, Headache, Increased Appetite, Lethargy, Malaise, Night Sweats, Snoring, Sleep Apnea, Weight Gain, Weight Loss, Weakness, Other - EENT Eyes: absent: As Per HPI, Blind Spots, Blurred Vision, Change in Vision, Decreased Night Vision, Diplopia, Discharge, Dry Eye, Exophthalmos, Floaters, Irritation, Itchy Eyes, Loss of Peripheral Vision, Pain, Photophobia, Requires Corrective Lenses, Sees Flashes, Spots in Vision, Tunnel Vision, Other Visual Disturbances, Loss of Vision, Other - Cardiovascular Cardiovascular: absent: As Per HPI, Acrocyanosis, Chest Pain, Chest Pain at Rest, Chest Pain with Activity, Claudication, Diaphoresis, Dyspnea, Dyspnea on Exertion, Edema, Irregular Heart Rhythm, Pain Radiating to Arm/Neck/Jaw, Leg Edema, Leg Ulcers, Lightheadedness, Orthopnea, Palpitations, Paroxysmal Nocturnal Dyspnea, Pedal Edema, Radiating Pain, Rapid Heart Rate, Slow Heart Rate, Syncope, Other - Respiratory Respiratory: absent: As Per HPI, Cough, Dyspnea, Hemoptysis, Dyspnea on Exertion, Wheezing, Snoring, Stridor, Pain on Inspiration, Chest Congestion, Excessive Mucous Production, Change in Mucous Color, Pain with Coughing, Other - Gastrointestinal Gastrointestinal: absent: As Per HPI, Abdominal Pain, Belching, Bloating, Change in Bowel Habits, Change in Stool Character, Coffee Ground Emesis, Constipation, Cramping, Diarrhea, Dyspepsia, Dysphagia, Early Satiety, Excessive Flatus, Fecal Incontinence, Heartburn, Hematemesis, Hematochezia, Loose Stools, Melena, Nausea, Odynophagia, Temesmus, Vomiting, Other Objective - Vital Signs/Intake and Output Vital Signs (last 24 hours): Temp Pulse Resp BP Pulse Ox 98.1 F 65 19 129/63 95 08/29/18 05:48 08/29/18 05:48 08/29/18 05:48 08/29/18 05:48 08/29/18 05:48 Intake and Output: 08/29/18 08/29/18 06:59 18:59 Intake Total 2554 Output Total 650 Balance 1904 - Medications Medications: Current Medications Aspirin (Aspirin Chewable) 81 mg PO DAILY [facility] Last Admin: 08/29/18 09:25 Dose: 81 mg Metronidazole (Flagyl) 500 mg in 100 mls @ 100 mls/hr IVPB Q8 [facility]; Protocol Last Admin: 08/29/18 05:14 Dose: 100 mls/hr Lactated Ringer's (Lactated Ringer's) 1,000 mls @ 115 mls/hr IV .[id number] [facility] Last Admin: 08/28/18 21:06 Dose: 115 mls/hr Cefepime HCl (Maxipime 1gm) 1 gm in 100 mls @ 100 mls/hr IVPB Q12 [facility]; Protocol Stop: 09/03/18 13:01 Last Admin: 08/28/18 21:05 Dose: 100 mls/hr Insulin Human Regular (Humulin R Med) 0 units SC ACHS [facility]; Protocol Last Admin: 08/29/18 07:30 Dose: Not Given Ketorolac Tromethamine (Toradol) 30 mg IVP Q6 PRN PRN Reason: Pain, moderate (4-7) Last Admin: 08/29/18 03:55 Dose: 30 mg Metoclopramide HCl (Reglan) 10 mg IV ONCE PRN PRN Reason: Nausea/Vomiting Metoprolol Tartrate (Lopressor) 25 mg PO BID [facility] Last Admin: 08/28/18 18:12 Dose: Not Given Morphine Sulfate (Morphine) 4 mg IVP Q4H PRN PRN Reason: Pain, severe (8-10) Last Admin: 08/26/18 19:02 Dose: 4 mg Morphine Sulfate (Morphine) 2 mg IVP Q4H PRN PRN Reason: Anxiety Last Admin: 08/26/18 14:18 Dose: 2 mg Warfarin Sodium (Coumadin) 4 mg PO 1800 [facility] Last Admin: 08/28/18 17:46 Dose: 4 mg - Labs Labs: 08/29/18 06:30 08/29/18 06:30 PT 15.7 SECONDS (9.4-12.5) H 08/29/18 06:30 INR 1.36 08/29/18 06:30 APTT 32.1 Seconds (25.1-36.5) 08/27/18 07:40 - Constitutional Appears: Non-toxic, No Acute Distress - Head Exam Head Exam: NORMAL INSPECTION - Eye Exam Eye Exam: Normal appearance - ENT Exam ENT Exam: Mucous Membranes Moist, Normal Exam - Neck Exam Neck Exam: Normal Inspection - Respiratory Exam Respiratory Exam: Decreased Breath Sounds, NORMAL BREATHING PATTERN - Cardiovascular Exam Cardiovascular Exam: REGULAR RHYTHM, +S1, +S2 - GI/Abdominal Exam GI & Abdominal Exam: Normal Bowel Sounds Additional comments: dsg intact to abdomen , macho drain with minimal output - Extremities Exam Extremities Exam: Normal Capillary Refill - Neurological Exam Neurological Exam: Alert, Awake, Oriented x3 Assessment and Plan - Assessment and Plan (Free Text) Plan: All Active Problems Cholecystitis (Acute) Cholelithiasis (Acute) CHF (congestive heart failure) (Acute) Chest pain (Acute) Dehydration (Acute) Gross hematuria (Acute) Hematuria (Acute) Near syncope (Acute) pt is a 88 yr old spamnish speaking male with pmh sig for afib, chf, bph, htn, ppm who was admitted with RLQ and LLQ pain and was found to have acute parker on exam and imaging. pt was seen by cardiology and taken for cath on 08/26 surgical clearance with no intervention to 70% stenosis in LAD. Pt subsequently had open lap parker and was being monitored in the ICU now transferred to [facility] for further mgmt with cardiology #Acute parker s/p open lap parker with necrotic GB and liver cirrhosis tolerating diet surgical notes rev'd ID antibiotics on board #cad/chf s/p cardiac cath with medical mgmt of 70% stenosis of LAD - no stenting cardiology recs reviewed # Right and left focal infiltrate ID consultation with antibiotic regimen in place Pt seenand evaluted by P.T - recs for TCU will continue to follow Carleen Dial APN
[2018-08-29] MEDS ORDERED: Potassium Chloride 20 MEQ in Dextrose 5%/0.45% NS 1,000 ML IV SCH (12:45)
--- NOTE | 2018-08-29 12:47 | PN ---
DATE: 08/29/2018 SUBJECTIVE: The patient is sitting up in bed, eating breakfast without issues. No bowel movement yet. PHYSICAL EXAMINATION: VITAL SIGNS: Blood pressure is 129/63, heart rate in the 60s. NECK: Negative JVD. LUNGS: Without rales. HEART: S1, S2. EXTREMITIES: Without edema. LABORATORY DATA: Hemoglobin is 10.4, white count is down to 13.9, BUN and creatinine 31 and 1.6. IMPRESSION: 1. Stable post cholecystectomy. 2. History of 80% stenosis in the distal left anterior descending. 3. Good left ventricular function. 4. Prerenal azotemia. PLAN: Given these findings, the patient's prerenal azotemia is better after IV hydration. The patient is tolerating his food and is recovering from his cholecystectomy well. Maury Booker MD
[2018-08-29] MEDS: Morphine 2 mg/ml ISec IVP PRN (12:53)
[2018-08-29] MEDS: Cefepime 1gm in NS 100ml 1 GM/100 ML BAG IVPB SCH ×2 (13:05→21:10)
[2018-08-29] MEDS ORDERED: Morphine 2 mg/ml ISec IVP PRN (13:19)
[2018-08-29] MEDS: Enoxaparin 80 mg Syringe SC SCH (13:44)
[2018-08-29] MEDS: Potassium Chloride 20 MEQ in Dextrose 5%/0.45% NS 1,000 ML IV SCH (16:00)
--- NOTE | 2018-08-29 16:02 | PN ---
DATE: 08/29/2018 SUBJECTIVE: He has status post open cholecystectomy after cardiac catheterization. The recommendations for TCU, I think he should go there this week after the surgery. He is 88 years old, he had an open parker. 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 I think he can go to TCU if that would be okay with them. He is doing incentive spirometry which is very important, I encouraged him to do that. We will get him out of bed to chair today. PHYSICAL EXAMINATION: VITAL SIGNS: He has 98.1 temperature, 65 pulse, 129/63 blood pressure, 19 respiratory rate, and 95% O2 saturation on nasal cannula. HEENT: His head is atraumatic and normocephalic. HEART: Regular rate. LUNGS: Decreased breath sounds with poor inspiration. Hopefully, he does not get in the morning, he has got to take 10 deep breaths every hour. ABDOMEN: Decreased bowel sounds, but they are present. He has got bandages, little tender status post open parker. EXTREMITIES: No edema. MEDICATIONS: He is currently on aspirin, Coumadin, Flagyl, insulin, lactated Ringer, Lopressor, Maxipime, morphine, Reglan, and Toradol. LABORATORY DATA: He has a white count of 13.9, it was as high as 19.9 the other day, it was coming down nicely; 10.4 hemoglobin, 33.2 hematocrit with 268 platelets. His INR is down to 1.36. He is back on his Coumadin. He has 143 sodium, potassium 4.7, BUN 31, creatinine 1.6 which is better, that is improving too. GFR is up to 41, sugar is 99, calcium is 8.1, total bilirubin is 0.6, AST is 46, ALT is 38, alk phos 100, troponin I is 0.02, and total protein 6.1. ASSESSMENT AND PLAN: I am hoping he will get to TCU today. He is being seen by Surgery, Cardiology, and Infectious Disease. He will be getting the antibiotics for a little while longer. I will check his labs tomorrow. He needs physical therapy and incentive spirometry, and he is status post open cholecystectomy, also status post cardiac catheterization to get him cleared for the open cholecystectomy cardiological escamilla. Dieter Griggs DO [facility]
--- NOTE | 2018-08-29 16:20 | PN ---
DATE: 08/29/2018 SUBJECTIVE: The patient is in bed, in no acute distress, nontoxic. PHYSICAL EXAMINATION: VITAL SIGNS: On exam, temperature is 98, blood pressure is 129/60, respiratory rate of 18, heart rate of 65. HEENT: Examination of HEENT is unremarkable. NECK: Supple. LUNGS: Have decreased breath sounds. HEART: Normal S1, S2. ABDOMEN: Soft. LABORATORY DATA: Laboratory examination reveals a white count is down to 13,009, hemoglobin 10. Creatinine is at 1.6. Urinalysis is noted and serology is reviewed. Microbiology reveals the blood cultures are negative. The body fluid culture from gallbladder culture is no growth. Nares MRSA is negative. Urine cultures are negative. Review of orders reveals the patient to be on cefepime, Flagyl. ASSESSMENT/PLAN: An 88-year-old acute cholecystitis and sepsis with right-sided healthcare-associated pneumonia, chronic renal failure, hypertension, status post cholecystectomy, exploration of biliary tree and cholangiogram, on cefepime and Flagyl. We will continue to follow the white count. Ebenezer Ledesma MD
[2018-08-29] MEDS ORDERED: HYDROmorphone 1 mg/ml ISec IVP STA (21:51)
[2018-08-30 01:02] VITALS: RESP 20
[2018-08-30] MEDS: Enoxaparin 80 mg Syringe SC SCH ×2 (02:51→13:22)
[2018-08-30] MEDS: metroNIDAZOLE IV 500 mg/100 ml 500 MG/100 ML BAG IVPB SCH ×2 (06:49→13:23)
[2018-08-30 06:53] LABS: HEMOGLOBIN 10.3 g/dL (14.0-18.0); MEAN CELL VOLUME 101.3 fl (80.0-105.0); MEAN CORPUSCULAR HEMOGLOBIN 32.3 pg (25.0-35.0); MEAN CORPUSCULAR HGB CONC 31.9 g/dl (31.0-37.0); MEAN PLATELET VOLUME 10.8 fl (7.0-11.0); RBC 3.19 10^6/uL (3.5-6.1); WHITE BLOOD COUNT 13.6 10^3/uL (4.5-11.0)
[2018-08-30 06:59] LABS: INR 1.33; PROTHROMBIN TIME 15.4 SECONDS (9.4-12.5)
[2018-08-30 07:18] LABS: ALB/GLOB RATIO 0.9 (1.1-1.8); CALCIUM 8.5 mg/dL (8.4-10.5)
[2018-08-30 07:27] VITALS: O2SAT 96
--- NOTE | 2018-08-30 07:37 | CP.PCM.PN ---
Subjective - Date & Time of Evaluation Date of Evaluation: 08/30/18 Time of Evaluation: 07:36 - Subjective Subjective: Surgery Progress note- Dr. Lema Patient seen and examined at bedside. Yesterday patient became confused after receiving Morphine. Per nursing patient was agitated, and moderately aggressive. Overnight patient was given a total 10 of Haldol. This AM patient is more awake and alert, however still moderately confused. Patient still having dark urine. Fabrice: 140cc serosang fluid. Objective - Vital Signs/Intake and Output Vital Signs (last 24 hours): Temp Pulse Resp BP Pulse Ox 98.6 F 62 20 142/54 L 96 08/30/18 06:00 08/30/18 06:00 08/30/18 06:00 08/30/18 06:00 08/30/18 06:00 Intake and Output: 08/30/18 08/30/18 06:59 18:59 Intake Total 1335 Output Total 165 Balance 1170 - Medications Medications: Current Medications Acetaminophen (Tylenol 325mg Tab) 650 mg PO Q6H PRN PRN Reason: Pain, Mild (1-3) Aspirin (Aspirin Chewable) 81 mg PO DAILY [facility] Last Admin: 08/29/18 09:25 Dose: 81 mg Enoxaparin Sodium (Lovenox) 80 mg SC Q12H [facility]; Protocol Last Admin: 08/30/18 02:51 Dose: 80 mg Metronidazole (Flagyl) 500 mg in 100 mls @ 100 mls/hr IVPB Q8 [facility]; Protocol Last Admin: 08/30/18 06:49 Dose: 100 mls/hr Cefepime HCl (Maxipime 1gm) 1 gm in 100 mls @ 100 mls/hr IVPB Q12 [facility]; Protocol Stop: 09/03/18 13:01 Last Admin: 08/29/18 21:10 Dose: 100 mls/hr Potassium Chloride 20 meq/ (Dextrose/Sodium Chloride) 1,010 mls @ 50 mls/hr IV .[id number] [facility] Last Admin: 08/29/18 16:00 Dose: 50 mls/hr Insulin Human Regular (Humulin R Med) 0 units SC ACHS [facility]; Protocol Last Admin: 08/29/18 22:00 Dose: Not Given Metoprolol Tartrate (Lopressor) 25 mg PO BID [facility] Last Admin: 08/29/18 17:25 Dose: 25 mg Tramadol HCl (Ultram) 50 mg PO TID PRN PRN Reason: Pain, moderate (4-7) Last Admin: 08/29/18 15:13 Dose: 50 mg Warfarin Sodium (Coumadin) 4 mg PO 1800 [facility] Last Admin: 08/29/18 17:26 Dose: 4 mg - Labs Labs: 08/30/18 06:30 08/30/18 06:30 PT 15.4 SECONDS (9.4-12.5) H 08/30/18 06:30 INR 1.33 08/30/18 06:30 APTT 32.1 Seconds (25.1-36.5) 08/27/18 07:40 - Constitutional Appears: Non-toxic, No Acute Distress - Head Exam Head Exam: ATRAUMATIC - Eye Exam Eye Exam: EOMI. absent: Scleral icterus - ENT Exam ENT Exam: Mucous Membranes Moist - Respiratory Exam Respiratory Exam: NORMAL BREATHING PATTERN. absent: Accessory Muscle Use, Respiratory Distress - Cardiovascular Exam Cardiovascular Exam: REGULAR RHYTHM, +S1, +S2. absent: Bradycardia, Tachycardia - GI/Abdominal Exam GI & Abdominal Exam: Soft. absent: Distended, Firm, Guarding, Rigid, Tenderness - Extremities Exam Extremities Exam: absent: Calf Tenderness - Neurological Exam Neurological Exam: Alert, Awake, Oriented x3 - Skin Skin Exam: Intact, Warm Assessment and Plan - Assessment and Plan (Free Text) Assessment: 88M s/p laparoscopic converted to open cholecystectomy Plan: - Analgesia PRN- Avoid narcotic use - Incentive spirometer use - OOB and ambulation - continue therapeutic lovenox till therapeutic INR - strict I/O - monitor drain output - Recommend Urology consult for Bladder mass further recs per Dr. Lema surgical attending
[2018-08-30] MEDS: Cefepime 1gm in NS 100ml 1 GM/100 ML BAG IVPB SCH (11:17)
[2018-08-30] MEDS: Insulin Reg-MEDIUM-Coverage SC SCH ×3 (11:18→18:36)
--- NOTE | 2018-08-30 11:50 | PN ---
DATE: 08/30/2018 CARDIOLOGY FOLLOWUP SUBJECTIVE: The patient is tolerating p.o. intake. No issues. No chest pain. No shortness of breath. PHYSICAL EXAMINATION: VITAL SIGNS: Blood pressure 142/54 and heart rates in the 60s. NECK: Negative JVD. LUNGS: Without rales. HEART: Reveal S1 and S2. EXTREMITIES: Without edema. LABORATORY DATA: Hemoglobin is 10.3. Chemistries; BUN and creatinine 31 and 1.5. IMPRESSION: 1. Status post cholecystectomy. 2. Unstable angina. 3. Coronary artery disease with a 70% distal left anterior descending stenosis. 4. Diabetes mellitus. 5. Hypercholesterolemia. Given these findings, the patient's coronary artery disease will be treated medically with aspirin, beta-blockers and statin therapy. The patient is hemodynamically stable. We will discontinue telemetry today. Maury Booker MD
[2018-08-30] MEDS: Potassium Chloride 20 MEQ in Dextrose 5%/0.45% NS 1,000 ML IV SCH (12:44)
--- NOTE | 2018-08-30 15:24 | CP.PCM.PN ---
Subjective - Date & Time of Evaluation Date of Evaluation: 08/30/18 Time of Evaluation: 13:30 - Subjective Subjective: No fevers, not in distress, no abdominal pain currently. Objective - Vital Signs/Intake and Output Vital Signs (last 24 hours): Temp Pulse Resp BP Pulse Ox 97.5 F L 64 20 146/89 96 08/30/18 12:00 08/30/18 12:00 08/30/18 12:00 08/30/18 12:00 08/30/18 06:00 Intake and Output: 08/30/18 08/30/18 06:59 18:59 Intake Total 1335 Output Total 165 Balance 1170 - Medications Medications: Current Medications Acetaminophen (Tylenol 325mg Tab) 650 mg PO Q6H PRN PRN Reason: Pain, Mild (1-3) Aspirin (Aspirin Chewable) 81 mg PO DAILY [facility] Last Admin: 08/30/18 11:17 Dose: 81 mg Enoxaparin Sodium (Lovenox) 80 mg SC Q12H [facility]; Protocol Last Admin: 08/30/18 13:22 Dose: 80 mg Metronidazole (Flagyl) 500 mg in 100 mls @ 100 mls/hr IVPB Q8 [facility]; Protocol Last Admin: 08/30/18 13:23 Dose: 100 mls/hr Cefepime HCl (Maxipime 1gm) 1 gm in 100 mls @ 100 mls/hr IVPB Q12 [facility]; Protocol Stop: 09/03/18 13:01 Last Admin: 08/30/18 11:17 Dose: 100 mls/hr Potassium Chloride 20 meq/ (Dextrose/Sodium Chloride) 1,010 mls @ 50 mls/hr IV .[id number] [facility] Last Admin: 08/30/18 12:44 Dose: Not Given Insulin Human Regular (Humulin R Med) 0 units SC ACHS [facility]; Protocol Last Admin: 08/30/18 11:59 Dose: 1 unit Metoprolol Tartrate (Lopressor) 25 mg PO BID [facility] Last Admin: 08/30/18 11:17 Dose: 25 mg Tramadol HCl (Ultram) 50 mg PO TID PRN PRN Reason: Pain, moderate (4-7) Last Admin: 08/30/18 13:22 Dose: 50 mg Warfarin Sodium (Coumadin) 4 mg PO 1800 [facility] Last Admin: 08/29/18 17:26 Dose: 4 mg - Labs Labs: 08/30/18 06:30 08/30/18 06:30 PT 15.4 SECONDS (9.4-12.5) H 08/30/18 06:30 INR 1.33 08/30/18 06:30 APTT 32.1 Seconds (25.1-36.5) 08/27/18 07:40 - Constitutional Appears: Chronically Ill - Head Exam Head Exam: NORMAL INSPECTION - Neck Exam Neck Exam: absent: Meningismus - Respiratory Exam Respiratory Exam: Decreased Breath Sounds - Cardiovascular Exam Cardiovascular Exam: +S1, +S2 - GI/Abdominal Exam GI & Abdominal Exam: Soft. absent: Tenderness Assessment and Plan - Assessment and Plan (Free Text) Plan: Assessment acute cholecystitis S/P cholecystectomy POD #3 history of sepsis due to right sided HCAP chronic renal failure HTN hypothyroidism S/P pacemaker placement Plan continue cefepime and flagyl and may consider discontinuing antibiotics when WBC count has normalized, patient is eating well and good bowel movements
[2018-08-30 18:01] VITALS: BP 174/79; TEMP 98.4
[2018-08-30 18:36] VITALS: PULSE 67
--- NOTE | 2018-08-30 20:55 | DS ---
HISTORY OF PRESENT ILLNESS: He had a gallbladder surgery, which ended up being open gallbladder. He is doing much better now. He needs some physical therapy, continued care of his wound, and IV antibiotics. I am hoping to get him to TCU today. He had a little issue last night, probably from the Dilaudid he was given, which made him little bit loopy, but he is better now, back to his baseline. He is alert and oriented x3. We are going to discontinue the Dilaudid. PHYSICAL EXAMINATION: VITAL SIGNS: He has a 98.6 temperature, 62 pulse, 142/54 blood pressure, 20 respiratory rate, 96% O2 sat on nasal cannula. HEENT: Head is atraumatic and normocephalic. HEART: Regular rate. LUNGS: Clear to auscultation. ABDOMEN: Decreased bowel sounds. It is less tender. He does have a surgical wound. EXTREMITIES: No edema. MEDICATIONS: He is currently on aspirin, Coumadin, Flagyl, insulin, Lopressor, Lovenox, Maxipime, potassium replacement, Tylenol, Ultran, and we stopped the Dilaudid which made him loopy. LABORATORY DATA: He had a 13.6 white count, little bit up, so he is on IV antibiotics; hemoglobin 10.3; hematocrit 32.3; platelets are 252. INR is 1.33, we will check it again tomorrow. He is on Coumadin. Sodium 141, potassium 4.6, BUN 31, creatinine 1.5. GFR is 44. Sugar is 113. Calcium is 8.5. Total bilirubin is 0.6, AST is 43, ALT is 31, alkaline phosphatase 105, and total protein 6.5. So, I am hoping to get him to TCU today for physical therapy. Continue on IV antibiotics and continue post-surgical care, it will be a perfect fit for him physical therapy too. He is off the medication that made him loopy and hopefully he will continue to improve, and he is status post open gallbladder surgery. Dieter Griggs DO [facility]
--- NOTE | 2018-08-31 08:41 | PQF ---
PROVIDER RESPONSE TEXT: Not sure what you mean REVIEWER QUERY TEXT: Rule Out Condition Clarification Pt has documented noted as ?rule out? or similar terminology such as suspected, pro bable, etc. Please clarify status of this condition: -Patient has condition -Condition was ruled out Please provide corresponding diagnosis for patient's clinical picture and associated treatment -Patient had condition which is now resolved -Other (please specify) -Clinically unable to determine -Unknown The patient's Clinical Indicators include: Patient admitted with cholelithiasis/acute cholecystitis. CT abdomen/pelvis was done on admission with a finding of RML and LLL infiltrate consistent with pneu monia. ID freight traffic consultant notes history of HCAP. Please clarify if pneumonia was present on this admission, ruled out, undetermined. Query created by: Lucie Aleman on 08/29/2018 11:36 AM Electronically signed by: Dieter Griggs DO 08/31/2018 8:39 AM
--- NOTE | 2018-08-31 21:24 | PQF ---
PROVIDER RESPONSE TEXT: Pt was admitted with sepsis with acute choly REVIEWER QUERY TEXT: Present On Admission It is unclear whether a diagnosis was present on admission. Your help is needed. Please clarify the POA status Such as: -- Present on admission -- Not present on admission The patient's Clinical Indicators include: Please clarify if sepsis and pneumonia are POA. Your documentation (08/27, 08/28) notes patient with "sepsis and right-sided HCAP by history. On 08/29 it states "acute cholecystitis and sepsis with right sided HCAP". CT abdomen/chest on admission notes RML and LLL infiltrate consistent with pneumonia. Query created by: Lucie Aleman on 08/30/2018 6:33 AM Electronically signed by: Ebenezer Ledesma MD 08/31/2018 9:21 PM
== END 2018-08-30 19:31 | DRG 854 ==
LOC: ED 14:37 → ERH 23:35 → 5RSO 08-25 02:44 → 2RSO 08-26 11:42 → 5RSO 08-26 17:24 → CCU 08-27 16:20 → 2RSO 08-28 15:40
PROVIDERS: ADMIT Family Medicine; ATTEND Family Medicine
PROC: 4A023N7 Measurement of Cardiac Sampling and Pressure, Left Heart, Percutaneous Approach (ICD-10-PCS; 2018-08-26)
PROC: B2151ZZ Fluoroscopy of Left Heart using Low Osmolar Contrast (ICD-10-PCS; 2018-08-26)
PROC: B211YZZ Fluoroscopy of Multiple Coronary Arteries using Other Contrast (ICD-10-PCS; 2018-08-26)
PROC: 0FQ00ZZ Repair Liver, Open Approach (ICD-10-PCS; 2018-08-27)
PROC: 0FJ44ZZ Inspection of Gallbladder, Percutaneous Endoscopic Approach (ICD-10-PCS; 2018-08-27)
PROC: BF10YZZ Fluoroscopy of Bile Ducts using Other Contrast (ICD-10-PCS; 2018-08-27)
PROC: 0FT40ZZ Resection of Gallbladder, Open Approach (ICD-10-PCS; principal; 2018-08-27 08:30)
DX: A41.9 Sepsis, unspecified organism (principal); K80.12 Calculus of gallbladder with acute and chronic cholecystitis without obstruction; I25.110 Atherosclerotic heart disease of native coronary artery with unstable angina pectoris; I13.0 Hypertensive heart and chronic kidney disease with heart failure and stage 1 through stage 4 chronic kidney disease, or unspecified chronic kidney disease; K74.60 Unspecified cirrhosis of liver; N18.9 Chronic kidney disease, unspecified; I50.9 Heart failure, unspecified; I48.2 Chronic atrial fibrillation; E03.9 Hypothyroidism, unspecified; K40.90 Unilateral inguinal hernia, without obstruction or gangrene, not specified as recurrent; I27.20 Pulmonary hypertension, unspecified; N40.0 Benign prostatic hyperplasia without lower urinary tract symptoms; D49.4 Neoplasm of unspecified behavior of bladder; E11.22 Type 2 diabetes mellitus with diabetic chronic kidney disease; I35.1 Nonrheumatic aortic (valve) insufficiency; E78.00 Pure hypercholesterolemia, unspecified; E78.5 Hyperlipidemia, unspecified; Z53.31 Laparoscopic surgical procedure converted to open procedure; Z79.01 Long term (current) use of anticoagulants; Z87.01 Personal history of pneumonia (recurrent); Z86.74 Personal history of sudden cardiac arrest; Z79.82 Long term (current) use of aspirin; Z87.891 Personal history of nicotine dependence; Z95.0 Presence of cardiac pacemaker

== ENCOUNTER 2018-08-30 19:31 | Inpatient (IN) | payer OTHER, MEDICAID ==
[2018-08-30] MEDS ORDERED: Potassium Chl 20mEq & D5W 1,000 ML IV SCH (20:45)
[2018-08-30] MEDS: metroNIDAZOLE IV 500 mg/100 ml 500 MG/100 ML BAG IVPB SCH (22:16)
[2018-08-30] MEDS: Insulin Reg-MEDIUM-Coverage SC SCH (22:16)
[2018-08-30 23:38] VITALS: BMI 27.9
[2018-08-30] MEDS ORDERED: Influenza Vaccine 60 mcg/0.5 mL SYR (4YR UP) IM ONE (23:38)
[2018-08-30] MEDS ORDERED: Pneumococcal 23-Valent Vaccine IM ONE (23:38)
[2018-08-31] MEDS: metroNIDAZOLE IV 500 mg/100 ml 500 MG/100 ML BAG IVPB SCH ×2 (04:59→14:05)
[2018-08-31] MEDS: Enoxaparin 80 mg Syringe SC SCH ×2 (05:00→18:21)
[2018-08-31] MEDS: Cefepime 1gm in NS 100ml 1 GM/100 ML BAG IVPB SCH ×2 (05:00→18:22)
[2018-08-31] MEDS: Insulin Reg-MEDIUM-Coverage SC SCH ×4 (06:35→21:31)
[2018-08-31 07:26] LABS: BASO # 0.02 K/mm3 (0.0-2.0); BASO % 0.2 % (0.0-3.0); EOS # 0.3 (0.0-0.7); EOS % 2.9 % (1.5-5.0); GRAN # 7.73 (1.4-6.5); GRAN % 73.3 % (50.0-68.0); HEMOGLOBIN 9.8 g/dL (14.0-18.0); LYMPH # 1.6 (1.2-3.4); LYMPH % 15.1 % (22.0-35.0); MEAN CELL VOLUME 100.3 fl (80.0-105.0); MEAN CORPUSCULAR HEMOGLOBIN 32.6 pg (25.0-35.0); MEAN CORPUSCULAR HGB CONC 32.5 g/dl (31.0-37.0); MEAN PLATELET VOLUME 10.8 fl (7.0-11.0); MONO # 0.9 (0.1-0.6); MONO % 8.5 % (1.0-6.0); RBC 3.01 10^6/uL (3.5-6.1); RED CELL DISTRIBUTION WIDTH 15.1 % (11.5-14.5); WHITE BLOOD COUNT 10.6 10^3/uL (4.5-11.0)
[2018-08-31 07:32] LABS: INR 1.49; PROTHROMBIN TIME 17.3 SECONDS (9.4-12.5)
[2018-08-31 08:13] LABS: ALB/GLOB RATIO 0.8 (1.1-1.8); ALBUMIN 2.9 g/dL (3.0-4.8); ALT/SGPT 39 U/L (7-56); AST/SGOT 47 U/L (17-59); BLOOD UREA NITROGEN 22 mg/dL (7-21); GFR NON-AFRICAN AMERICAN > 60
[2018-08-31] MEDS ORDERED: Sodium Chloride 0.45% 1,000 ML IV SCH (09:45)
--- NOTE | 2018-08-31 10:13 | HP ---
DATE OF EXAM: 08/31/2018 HISTORY OF PRESENT ILLNESS: I saw him in Transitional Care Unit. He was discharged from the hospital side yesterday, now he is in the Transitional Care Unit to continue treatment. He is an 88-year-old white man who I know very well from house calls. He is sent here after having a cholecystectomy which ended up being an open and there was a complication and now he has a drain in his abdomen, some oozing from the wound. He is also kind of weak and he had abdominal pain. He has cardiac cath to make sure he was medically optimized and cardiologically optimized for his procedure. PAST MEDICAL HISTORY: He has past medical history of speaking Ukrainian, atrial fibrillation on Coumadin for CHF, also diabetes, BPH, hypertension, AFib and pacemaker, hypothyroid, hematuria in the past. He has right knee surgery in the past, cystoscopies, dry with blood clots. He also has some kind of bladder tumor. I will get Dr. Momin to take a look at that while he is here on the TCU. He has had a bleeding prostate in the past, he has had bradycardia and asystole in the past. PAST SURGICAL HISTORY: He is presently status post open cholecystectomy. SOCIAL HISTORY: No smoking. No drinking. No drugs. FAMILY HISTORY: Unknown family history. ALLERGIES: NO KNOWN DRUG ALLERGIES. MEDICATIONS: Currently, he is on aspirin, Coumadin, Flagyl, insulin coverage, Lopressor, Lovenox, Maxipime, IV fluids with potassium which will change, Tylenol, Ultram. REVIEW OF SYSTEMS: He is having some abdominal discomfort. He does have surgery there, a little bit better than the other day. No acute vision or hearing changes. No sore throat. No chest pain. No shortness of breath. He is having abdominal pain in the incisional site. He did move his bowels. He is eating. He is urinating. No blood. No leg pains. Not anxious, not nervous, just uncomfortable. PHYSICAL EXAMINATION: VITAL SIGNS: He has a 97.5 temperature, 63 pulse, 156/72 blood pressure, 20 respiratory rate. HEENT: His head is atraumatic, normocephalic. Extraocular muscles are intact. Pupils equally react to light and accommodation. Throat is dry. GENERAL: He is well appearing, little uncomfortable status post surgery. Alert and oriented x3. NECK: Supple. HEART: Regular rate. Normal S1, S2. LUNGS: Decreased breath sounds. Some congestion bilaterally. He needs some incentive spirometry. I told him he needs to do this every hour 10 breaths in Ukrainian. He understood he was doing it in the hospital side with no incentive spirometry now in the TCU, I have to get him one. We will discuss that with the nurse. I am worried about him getting ammonia to prevent that, so he has some congestion in the lungs, also do a chest x-ray. He has right upper quadrant incisions and clementina and some oozing. ABDOMEN: Decreased bowel sounds with no guarding or rebound, just uncomfortable, some discomfort. EXTREMITIES: No edema. GCS is 15. NEUROLOGIC: Cranial nerves II-XII grossly intact. Alert and oriented x3. SKIN: Warm and dry except for the incision area of multiple clementina. LABORATORY DATA: He has a 140 sodium, potassium 4.5, BUN 22, creatinine 1.1, GFR is greater than 60, sugar is 103, calcium is 8, total bili is 0.8, AST is 47, ALT is 39, alk phos 95, total protein 6.3, albumin is 2.9. INR is up to 1.49, he is on Coumadin, also on Lovenox. We will stop the Lovenox when the INR is above 2. White count is down to 10.6, it was 19,000 three days ago and then came down to 13, now it is 10.6 with antibiotics working. The hemoglobin 9.8, hematocrit 30.2, platelets of 262. He has other tests that are pending. We will change his IV fluids around. He is currently on good antibiotics, cefepime and Flagyl. Continue aggressive treatment and care. He has got consults with Infectious Disease, Surgery. Hopefully, the physical therapy will help keep his physical ability to walk up. I do not want him to need further therapy and we have incentive spirometry to prevent pneumonia. He will get a chest x-ray. Dieter Griggs DO
--- NOTE | 2018-08-31 13:48 | RAD ---
Date of service: 08/31/2018 HISTORY: cough COMPARISON: 08/21/2018 TECHNIQUE: Chest PA and lateral FINDINGS: LUNGS: Low lung volumes. New right lower lobe infiltrate. PLEURA: No significant pleural effusion identified. No pneumothorax apparent. CARDIOVASCULAR: Cardiomegaly. No evidence of acute, significant cardiovascular disease. Position/ configuration of pacemaker Satisfactory. Atherosclerotic calcifications identified primarily aortic arch. OSSEOUS STRUCTURES: No significant abnormalities. VISUALIZED UPPER ABDOMEN: Normal. OTHER FINDINGS: None. IMPRESSION: New right lower lobe infiltrate.
--- NOTE | 2018-08-31 14:25 | CP.PCM.PN ---
Subjective - Date & Time of Evaluation Date of Evaluation: 08/31/18 Time of Evaluation: 14:22 - Subjective Subjective: General Surgery Progress For Dr. Lema Patient seen and examined at bedside. No more confusion per nursing. Fabrice: 70cc serosang fluid. Passing gas moving bowels tolerating PO diet Objective - Vital Signs/Intake and Output Vital Signs (last 24 hours): Temp Pulse Resp BP Pulse Ox 97.5 F L 61 20 159/73 H 08/30/18 23:25 08/31/18 08:07 08/30/18 23:25 08/31/18 08:07 Intake and Output: 08/31/18 08/31/18 06:59 18:59 Intake Total 270 420 Output Total 750 Balance -480 420 - Medications Medications: Current Medications Acetaminophen (Tylenol 325mg Tab) 650 mg PO Q6H PRN; Protocol PRN Reason: Pain, Mild (1-3) Last Admin: 08/31/18 01:29 Dose: 650 mg Aspirin (Aspirin Chewable) 81 mg PO 0800 SURI; Protocol Last Admin: 08/31/18 08:09 Dose: 81 mg Enoxaparin Sodium (Lovenox) 80 mg SC 0600,1800 SURI; Protocol Last Admin: 08/31/18 05:00 Dose: 80 mg Metronidazole (Flagyl) 500 mg in 100 mls @ 100 mls/hr IVPB Q8 SURI; Protocol Last Admin: 08/31/18 14:05 Dose: 100 mls/hr Cefepime HCl (Maxipime 1gm) 1 gm in 100 mls @ 100 mls/hr IVPB 0600,1800 SURI; Protocol Last Admin: 08/31/18 05:00 Dose: 100 mls/hr Sodium Chloride (Sodium Chloride 0.45%) 1,000 mls @ 40 mls/hr IV .Q24H SURI Last Admin: 08/31/18 10:00 Dose: 40 mls/hr Insulin Human Regular (Humulin R Med) 0 units SC ACHS SURI; Protocol Last Admin: 08/31/18 12:21 Dose: Not Given Metoprolol Tartrate (Lopressor) 25 mg PO 0800,1800 SURI; Protocol Last Admin: 08/31/18 08:07 Dose: 25 mg Tramadol HCl (Ultram) 50 mg PO TID PRN; Protocol PRN Reason: Pain, moderate (4-7) Last Admin: 08/30/18 21:51 Dose: 50 mg Warfarin Sodium (Coumadin) 4 mg PO 1800 SURI - Labs Labs: 08/31/18 07:00 08/31/18 07:00 PT 17.3 SECONDS (9.4-12.5) H 08/31/18 07:00 INR 1.49 08/31/18 07:00 - Constitutional Appears: Non-toxic, No Acute Distress - Head Exam Head Exam: ATRAUMATIC - Eye Exam Eye Exam: EOMI. absent: Scleral icterus - ENT Exam ENT Exam: Mucous Membranes Moist - Respiratory Exam Respiratory Exam: NORMAL BREATHING PATTERN. absent: Accessory Muscle Use, Respiratory Distress - Cardiovascular Exam Cardiovascular Exam: REGULAR RHYTHM, +S1, +S2. absent: Bradycardia, Tachycardia - GI/Abdominal Exam GI & Abdominal Exam: Soft. absent: Distended, Firm, Guarding, Rigid, Tenderness Inscisions well aproximated non tender non draining - Extremities Exam Extremities Exam: absent: Calf Tenderness - Neurological Exam Neurological Exam: Alert, Awake, Oriented x3 - Skin Skin Exam: Intact, Warm Assessment and Plan - Assessment and Plan (Free Text) Assessment: 88M s/p laparoscopic converted to open cholecystectomy Plan: - Analgesia PRN- Avoid narcotic use - OOB and ambulation - continue therapeutic lovenox till therapeutic INR - monitor drain output further recs per Dr. Torey Warren PGY3
[2018-08-31 17:06] VITALS: RESP 16; TEMP 97.6; O2SAT 96
[2018-09-01] MEDS: Cefepime 1gm in NS 100ml 1 GM/100 ML BAG IVPB SCH (05:19)
[2018-09-01] MEDS: Enoxaparin 80 mg Syringe SC SCH (05:23)
[2018-09-01 06:47] LABS: HEMOGLOBIN 10.1 g/dL (14.0-18.0); MEAN CELL VOLUME 100.6 fl (80.0-105.0); MEAN CORPUSCULAR HEMOGLOBIN 32.5 pg (25.0-35.0); MEAN CORPUSCULAR HGB CONC 32.3 g/dl (31.0-37.0); MEAN PLATELET VOLUME 10.4 fl (7.0-11.0); RBC 3.11 10^6/uL (3.5-6.1); RED CELL DISTRIBUTION WIDTH 15.3 % (11.5-14.5); WHITE BLOOD COUNT 10.1 10^3/uL (4.5-11.0)
[2018-09-01 06:48] LABS: ALB/GLOB RATIO 0.9 (1.1-1.8); ALT/SGPT 38 U/L (7-56); AST/SGOT 49 U/L (17-59); BLOOD UREA NITROGEN 18 mg/dL (7-21); CALCIUM 8.3 mg/dL (8.4-10.5); GFR NON-AFRICAN AMERICAN 52
[2018-09-01] MEDS: Insulin Reg-MEDIUM-Coverage SC SCH (07:21)
[2018-09-01 07:57] VITALS: BP 150/72; PULSE 60
--- NOTE | 2018-09-01 13:12 | PN ---
DATE: 09/01/2018 SUBJECTIVE: The patient seen earlier this morning in room 318. The patient is awake and alert. He is eating breakfast. He is communicative and said he moved his bowel yesterday. PHYSICAL EXAMINATION: VITAL SIGNS: Temperature is 97, blood pressure 160/70, respiratory rate of 18 and heart rate of 63. HEENT: Unremarkable. NECK: Supple. LUNGS: Decreased breath sounds. ABDOMEN: Soft. The patient's wound is clean. LABORATORY DATA: Reveals a white count is 10,000. Chemistries are noted. Creatinine is 1.3. Microbiology is reviewed. ASSESSMENT AND PLAN: An 88-year-old male who is awake and alert this morning in room 318 who has had acute cholecystitis and sepsis, right-sided healthcare-associated pneumonia, renal failure, hypertension, status post cholecystectomy normalizing on p.o. Flagyl, IV cefepime. Overall, longtime prognosis is quite poor. Ebenezer Ledesma MD
--- NOTE | 2018-09-01 13:25 | CP.PCM.PN ---
Subjective - Date & Time of Evaluation Date of Evaluation: 09/01/18 Time of Evaluation: 13:20 - Subjective Subjective: Surgery Progress note- Dr. Lema Patient initially seen and examined at bedside this AM in TCU. At that time patient was doing well, + OOB and ambulating. 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 Patient was later seen and examined in detail with Dr. Lema in the ED. Patient drain 30cc serosang fluid, non bilious. Incisions C/D/I no strikethrough. DVT ppx injections evident in LLQ. Patient awake and responding to verbal stimuli. Objective - Vital Signs/Intake and Output Vital Signs (last 24 hours): Temp Pulse Resp BP Pulse Ox 97.6 F 60 16 150/72 96 08/31/18 16:00 09/01/18 07:57 08/31/18 16:00 09/01/18 07:57 08/31/18 16:00 Intake and Output: 09/01/18 09/01/18 06:59 18:59 Output Total 70 Balance -70 - Medications Medications: Current Medications Acetaminophen (Tylenol 325mg Tab) 650 mg PO Q6H PRN; Protocol PRN Reason: Pain, Mild (1-3) Last Admin: 08/31/18 01:29 Dose: 650 mg Aspirin (Aspirin Chewable) 81 mg PO 0800 SURI; Protocol Last Admin: 09/01/18 07:55 Dose: 81 mg Enoxaparin Sodium (Lovenox) 80 mg SC 0600,1800 SURI; Protocol Last Admin: 09/01/18 05:23 Dose: 80 mg Sodium Chloride (Sodium Chloride 0.45%) 1,000 mls @ 40 mls/hr IV .Q24H SURI Last Admin: 08/31/18 10:00 Dose: 40 mls/hr Insulin Human Regular (Humulin R Med) 0 units SC ACHS SURI; Protocol Last Admin: 09/01/18 07:21 Dose: Not Given Metoprolol Tartrate (Lopressor) 25 mg PO 0800,1800 SURI; Protocol Last Admin: 09/01/18 07:57 Dose: 25 mg Metronidazole (Flagyl) 500 mg PO Q8 SURI; Protocol Stop: 09/04/18 22:01 Last Admin: 09/01/18 05:23 Dose: 500 mg Tramadol HCl (Ultram) 50 mg PO TID PRN; Protocol PRN Reason: Pain, moderate (4-7) Last Admin: 09/01/18 05:22 Dose: 50 mg Warfarin Sodium (Coumadin) 4 mg PO 1800 SURI Last Admin: 08/31/18 18:20 Dose: 4 mg - Labs Labs: 09/01/18 05:00 09/01/18 05:00 PT 17.3 SECONDS (9.4-12.5) H 08/31/18 07:00 INR 1.49 08/31/18 07:00 - Constitutional Appears: Non-toxic, No Acute Distress - Head Exam Head Exam: ATRAUMATIC - Eye Exam Eye Exam: EOMI - ENT Exam ENT Exam: Mucous Membranes Moist - Respiratory Exam Respiratory Exam: NORMAL BREATHING PATTERN. absent: Accessory Muscle Use, Respiratory Distress - Cardiovascular Exam Cardiovascular Exam: REGULAR RHYTHM, +S1, +S2. absent: Bradycardia, Tachycardia - GI/Abdominal Exam GI & Abdominal Exam: Soft. absent: Distended, Firm, Guarding, Rigid, Tenderness Additional comments: LLQ ecchymosis presumably from Chemical DVT ppx injections Fabrice drain in place w/ serosang fluid output - Skin Skin Exam: Intact, Warm Assessment and Plan - Assessment and Plan (Free Text) Assessment: 88M s/p Lap converted to open cholecystectomy POD #5, patient recovering in TCU and rapid response called due to patient being unresponsive. Patient transferred to ED for further workup Plan: - f/u work up; CT, CXR, repeat labs - monitor drain output - pain control PRN- avoid narcotics - will continue to follow - d/w Dr. Lema surgical attending PGY2
--- NOTE | 2018-09-01 13:53 | DS ---
HISTORY OF PRESENT ILLNESS: I saw him on the Transitional Care Unit. He is very lethargic when I got to him this morning. This morning though he did get up and walk around and he ate and he had a bowel movement. He was talking to go with therapy for the time I got to him, he is very lethargic in bed and rapid response was called and he was taken to the emergency room. He has also code stroke called on him. MEDICATIONS: He is on aspirin, Coumadin, Flagyl, insulin, Lopressor, Lovenox, IV fluids, Tylenol and Ultram. He had a recent open cholecystectomy , had a biliary surgeon to help secondary to a very bad gallbladder and now he is on IV antibiotics being seen by Infectious Disease and Surgery. He is being sent to the emergency room under a code stroke, rapid response. PHYSICAL EXAMINATION: GENERAL: He is arousable mildly. VITAL SIGNS: He has 97.6 temp, 157/85 blood pressure, 18 respiratory rate, and he was 98% O2 sat during rapid response. HEENT: Pupils equal reactive. HEART: Regular rate. LUNGS: Decreased breath sounds. ABDOMEN: Mildly distended. EXTREMITIES: No edema. LABORATORY DATA: He had a white count of 10.1 this morning, it was coming down, it was 19,000 three days ago, was 10.6 yesterday, now it is 10.1, 10.1 hemoglobin, 31.3 hematocrit with 296 platelets. INR is up to 1.49, on Coumadin and also Lovenox. Sodium is 139, BUN 18, creatinine 1.3, GFR is 52, sugar is 104, calcium is 8.3, total bili is 0.6, AST is 49, ALT is 38, alk phos 108, total protein 6.2 who is status post open cholecystectomy and he has a rapid response and down to the emergency room. He is being discharged now from the TCU. He did have a new right lower lobe infiltrate found on chest x-ray and Infectious Disease put him on Flagyl and we will see how he does in the emergency room prior to being admitted to Intensive Care Unit. This is a discharge on Ricardo Sr from the TCU due to rapid response and code stroke. Dieter Griggs DO MTDD
--- NOTE | 2018-09-01 22:03 | CARD ---
APPROVED REPORT Date of service: 09/01/2018 EKG Measurement Heart [id number] <Conclusion> Electronic ventricular pacemaker
--- NOTE | 2018-09-02 08:49 | CON ---
DATE: 08/31/2018 The patient seen in room 318. CHIEF COMPLAINT: Weakness. HISTORY OF PRESENT ILLNESS: This is an 88-year-old male with a history of coronary artery disease, congestive heart failure, peripheral vascular disease, who has a pacemaker. Has a history of atrial fibrillation, hypertension, diabetes and history of gout, who is admitted to the acute care. Patient was admitted with sepsis with acute cholecystitis and status post open cholecystectomy, postop leukocytosis and on cefepime and Flagyl now. Patient was found to have pathology of an acute hemorrhagic necrotizing cholecystitis with benign liver parenchymal tissues with cultures from blood negative and the gallbladder cultures negative. PAST MEDICAL HISTORY: Significant for gout, hypertension, diabetes, atrial fibrillation, peripheral vascular disease, congestive heart failure, coronary artery disease. PAST SURGICAL HISTORY: Includes, pacemaker, appendectomy. ALLERGIES: THE PATIENT HAS NO KNOWN ALLERGIES. MEDICATIONS: Reviewed. PHYSICAL EXAMINATION: VITAL SIGNS: Temperature is 98, blood pressure is 160/80, respiratory rate of 16. HEENT: Unremarkable. NECK: Supple. LUNGS: Have decreased breath sounds. HEART: Normal S1, S2. ABDOMEN: Soft, nontender. The wound is clear, mild erythema. The drainage is still present. LABORATORY EXAMINATION: Reveals a white count of 10, 000, hemoglobin of 9 and platelets of 262. Chemistries reveals a BUN of 22, creatinine of 1.1. Urinalysis is noted. Serology is reviewed. Microbiology is reviewed. ASSESSMENT AND PLAN: This is an 88-year-old male with sepsis status post cholecystectomy postoperative day #4 with renal disease, hypertension, hypothyroidism, pacemaker and on cefepime, Flagyl, now with normal white count and hopefully discontinue the antibiotics within next 24 hours and we will follow closely with you, and review of orders confirms the patient to be on Flagyl which we will change to p.o. and continue the cefepime for now and we will follow with you. Review of medications reveals the cefepime to be active. We will continue it with you. Ebenezer Ledesma MD
== END 2018-09-01 11:30 | disposition short-term general hospital (02) | DRG 444 ==
LOC: TRCU 19:31
PROVIDERS: ADMIT Family Medicine; ATTEND Family Medicine
DX: K81.0 Acute cholecystitis (principal); J18.9 Pneumonia, unspecified organism; Z48.815 Encounter for surgical aftercare following surgery on the digestive system; E03.9 Hypothyroidism, unspecified; E11.51 Type 2 diabetes mellitus with diabetic peripheral angiopathy without gangrene; I11.0 Hypertensive heart disease with heart failure; I50.9 Heart failure, unspecified; I25.10 Atherosclerotic heart disease of native coronary artery without angina pectoris; I48.91 Unspecified atrial fibrillation; N40.0 Benign prostatic hyperplasia without lower urinary tract symptoms; N28.9 Disorder of kidney and ureter, unspecified; D49.4 Neoplasm of unspecified behavior of bladder; M10.9 Gout, unspecified; Z79.01 Long term (current) use of anticoagulants; Z86.74 Personal history of sudden cardiac arrest; Z95.0 Presence of cardiac pacemaker

== ENCOUNTER 2018-09-01 10:54 | Inpatient (IN) | payer MEDICARE, MEDICAID ==
[2018-09-01 10:54] VITALS: PULSE 62
[2018-09-01 10:57] VITALS: BMI 27.9
[2018-09-01] MEDS ORDERED: Iohexol 350 MG/100 ML VIAL ONE (11:06)
[2018-09-01] MEDS ORDERED: Sodium Chloride 0.9% 1,000 ML IV SCH (11:15)
--- NOTE | 2018-09-01 11:38 | CT ---
Date of service: 09/01/2018 PROCEDURE: CT HEAD WITHOUT CONTRAST. HISTORY: altered mental status COMPARISON: 03/18/2018 TECHNIQUE: Axial computed tomography images were obtained through the head/brain without intravenous contrast. Supplemental Coronal and Sagittal projections created and reviewed. Radiation dose: Total exam DLP = 1062.63 mGy-cm. This CT exam was performed using one or more of the following dose reduction techniques: Automated exposure control, adjustment of the mA and/or kV according to patient size, and/or use of iterative reconstruction technique. FINDINGS: HEMORRHAGE: No intracranial hemorrhage. BRAIN: No mass effect or edema. Cortical and cerebellar atrophy, periventricular small vessel disease. VENTRICLES: Unremarkable. No hydrocephalus. CALVARIUM: Unremarkable. PARANASAL SINUSES: Unremarkable as visualized. No significant inflammatory changes. MASTOID AIR CELLS: Unremarkable as visualized. No inflammatory changes. OTHER FINDINGS: None. IMPRESSION: No acute intracranial abnormalities. No significant findings to account for the clinical presentation. No significant interval change compared to the prior examination(s).
[2018-09-01 11:43] LABS: BASO # 0.04 K/mm3 (0.0-2.0); BASO % 0.4 % (0.0-3.0); EOS # 0.5 (0.0-0.7); EOS % 4.7 % (1.5-5.0); GRAN # 6.7 (1.4-6.5); GRAN % 67.8 % (50.0-68.0); HEMOGLOBIN 10.1 g/dL (14.0-18.0); LYMPH # 1.9 (1.2-3.4); LYMPH % 19.5 % (22.0-35.0); MEAN CELL VOLUME 100.3 fl (80.0-105.0); MEAN CORPUSCULAR HEMOGLOBIN 32.7 pg (25.0-35.0); MEAN CORPUSCULAR HGB CONC 32.6 g/dl (31.0-37.0); MEAN PLATELET VOLUME 10.2 fl (7.0-11.0); MONO # 0.8 (0.1-0.6); MONO % 7.6 % (1.0-6.0); RBC 3.09 10^6/uL (3.5-6.1); RED CELL DISTRIBUTION WIDTH 15.1 % (11.5-14.5); WHITE BLOOD COUNT 9.9 10^3/uL (4.5-11.0)
--- NOTE | 2018-09-01 11:50 | CT ---
Date of service: 09/01/2018 PROCEDURE: CT Abdomen and Pelvis with contrast HISTORY: recent surgery - altered mental status Relevant surgical history: 08/27/2018 cholecystectomy COMPARISON: 08/24/2018. CT abdomen and pelvis. Summary of findings on the comparison examination: Probable cholecystitis. 2 x 3 cm mass in the right side of the bladder consistent with bladder neoplasm. TECHNIQUE: Intravenous contrast dose: 100 cc Omnipaque 300 Radiation dose: Total exam DLP = 1103.02 mGy-cm. This CT exam was performed using one or more of the following dose reduction techniques: Automated exposure control, adjustment of the mA and/or kV according to patient size, and/or use of iterative reconstruction technique. FINDINGS: LOWER THORAX: Small bilateral pleural effusions. Adjacent atelectasis. Additional infiltrates noted right middle lobe. LIVER: Unremarkable. No gross lesion or ductal dilatation. GALLBLADDER AND BILE DUCTS: Status post cholecystectomy. Surgical drain courses through the gallbladder fossa. Expected postoperative changes include focal air and fluid. PANCREAS: Unremarkable. No gross lesion or ductal dilatation. SPLEEN: Unremarkable. ADRENALS: Unremarkable. No mass. KIDNEYS AND URETERS: Unremarkable. No hydronephrosis. No solid mass. VASCULATURE: Atherosclerotic calcification and mural plaque present. Findings are seen throughout the aorta . No aortic aneurysm. BOWEL: Unremarkable. No obstruction. No gross mural thickening. APPENDIX: Normal appendix. PERITONEUM: Focal air interposed between the liver and diaphragm presumed to be postoperative in nature. LYMPH NODES: Unremarkable. No enlarged lymph nodes. BLADDER: Redemonstration of right lateral bladder wall mass 1.9 x 2.6 cm. Air in the urinary bladder likely iatrogenic. REPRODUCTIVE: Unremarkable. BONES: No acute fracture. OTHER FINDINGS: Status post cholecystectomy, there is right anterior abdominal, sub costal hematoma/postoperative change measuring 2.8 x 1.4 cm. There are small locules of air within this. This does not extend into the peritoneal cavity and likely represents postoperative change. IMPRESSION: Postoperative changes in the right upper quadrant consist of air/fluid in the gallbladder fossa. Adjacent drain identified. Trace free air noted. Postoperative changes anterior abdominal wall likely hematoma. This appears subjacent to surgical clips. Redemonstration of bladder wall mass Small bilateral pleural effusions. Dependent atelectatic changes/infiltrates. Right middle lobe infiltrate.
[2018-09-01 11:51] LABS: INR 1.59; PARTIAL THROMBOPLASTIN TIME 40.4 Seconds (25.1-36.5); PROTHROMBIN TIME 18.4 SECONDS (9.4-12.5)
[2018-09-01 11:52] LABS: ALB/GLOB RATIO 0.9 (1.1-1.8); ALBUMIN 2.8 g/dL (3.0-4.8); ALT/SGPT 39 U/L (7-56); AMYLASE < 30 U/L (35-125); AST/SGOT 47 U/L (17-59); BLOOD UREA NITROGEN 19 mg/dL (7-21); GFR NON-AFRICAN AMERICAN > 60; HDL CHOLESTEROL 32 mg/dL (29-60); LIPASE 45 U/L (23-300)
--- NOTE | 2018-09-01 11:59 | RAD ---
Date of service: 09/01/2018 HISTORY: r/o infiltrate COMPARISON: August 31, 2018. FINDINGS: LUNGS: Involving right lower lobe infiltrate. Pulmonary vascular congestion. This represents a new/acute finding. PLEURA: No significant pleural effusion identified, no pneumothorax apparent. CARDIOVASCULAR: Cardiomegaly. Position/ configuration of pacemaker Atherosclerotic calcifications identified primarily aortic arch. OSSEOUS STRUCTURES: No significant abnormalities. VISUALIZED UPPER ABDOMEN: Normal. OTHER FINDINGS: None. IMPRESSION: Evolving right lower lobe infiltrate. Cardiomegaly/new pulmonary vascular congestion.
[2018-09-01 12:03] LABS: LDL CHOLESTEROL 34 mg/dL (0-129)
[2018-09-01 12:05] LABS: TROPONIN I 0.02 ng/mL
--- NOTE | 2018-09-01 12:21 | PCM.RRT ---
<Adriano Jc - Last Filed: 09/01/18 12:34> STAGE PRODUCER Nurse Assessment - Situation Date: 09/01/18 Time STAGE PRODUCER was called: 10:37 STAGE PRODUCER Responder Arrival Time: 10:38 STAGE PRODUCER Location:: Transitional Care Unit Room Number: 318 STAGE PRODUCER Reason for Call: Change in Mental Status STAGE PRODUCER Called By: RN - IV IV Inserted during STAGE PRODUCER?: No - Respiratory Oxygen Delivery Method: Nasal Cannula @L/min - Diagnostic Test Ordered EKG: Yes (Paced rythm ) CPR started during STAGE PRODUCER?: No - Vital Signs Vital Sign: BP157/85 HR 85 SPO2 98% - Finger Stick Blood Glucose Finger Stick Blood Glucose: 118 I.Reason for STAGE PRODUCER - A) Acute Change in Patient: (Select all that apply): Acute change in mental status - Neurological Status (Select all that apply): absent: Responsive Other (Please specify): Unresponsive - Respiratory Oxygen Delivery Method: Nasal Cannula @L/min (5L) - Constitutional Appears: No Acute Distress Additional Comments: Unresponsive to sternal rub - Head Head Exam: ATRAUMATIC, NORMOCEPHALIC - Eyes Eye Exam: PERRL - Respiratory Exam Respiratory Exam: Clear to Ausculation Bilateral. absent: Rales, Wheezes - Cardiovascular Exam Cardiovascular Exam: RRR, +S1, +S2. absent: Tachycardia - GI/Abdominal Exam GI & Abdominal Exam: Soft. absent: Distended, Tenderness - Neurological Exam Neurological Exam: Altered - Extremities Exam Extremities Exam: absent: Calf Tenderness, Pedal Edema Plan - Assessment of Findings&Treatment Plan STAGE PRODUCER reason: unresponsive 88 M with PMH of recent laproscopic cholecystectomy which was converted to open, sent to TCU for rehab, now presents after his nurse found him unresponsive. Patient was reportedly conversing, and walking in the morning. ROS limited 2/2 patients clinical status Vitals: hemodynamically stable EKG showed paced rhythm Patient was transferred to the ED, under the care of Dr Claire, for further work up including ABG, CXR, CT head, CT abd and pelvis etc. Dr Griggs and patients daughter, Roxann, was notified of patients change in mental status and the transfer to the ED. <Laura Aguilar - Last Filed: 09/01/18 13:25> Attending/Attestation - Attestation I have personally seen and examined this patient.: Yes I have fully participated in the care of the patient.: Yes I have reviewed all pertinent clinical information, including history, physical exam and plan: Yes Notes (Text): 09/01/18 13:19 Attending note; Patient seen and examined with resident during rapid response in TCU. patient was found unresponsive by the nursing staff. Not responding to deep stimulus. Pupils equal and reactive. Fingerstick is 118. Vitals stable. Saturation is 98%. EKG showed no acute changes. Patient was immediately transferred to the ER. CT head, chest abdomen and pelvis ordered. Case endorsed to ER attending. Case discussed with PMD Dr. griggs in detail. Family informed the resident. Addendum; CT head is negative. Abdomen and pelvis showed postoperative changes. Case discussed with neurology in detail. Possible postictal state/seizure suspected. Further care per PMD. . 09/01/18 13:20 09/01/18 13:21 09/01/18 13:24
[2018-09-01] MEDS ORDERED: Vancomycin 1gm in NS 250ml 1 GM/250 ML BAG IVPB STA (12:47)
[2018-09-01] MEDS ORDERED: Piperacillin/Tazobact 3.375 gm 100 ML IVPB STA (12:47)
--- NOTE | 2018-09-01 12:47 | CP.PCM.CON ---
History of Present Illness - History of Present Illness History of Present Illness: Neurology Consultation Note: Mr. Sr is an 88-year-old man with a past medical history of CHF, afib on coumadin, who was in the TCU after a cholecystectomy, who was found unresponsive this morning. He was not responsive to deep painful stimulus. CT scan of the head did not show any acute findings. He was not a candidate for IV tPA due to being on coumadin and lovenox. Shortly after the event, the patient became responsive, started following commands and answering questions. He remained slightly dysarthric and lethargic, but was alert and awake but confused about location and had no recollection of what took place this morning. NIHSS was 2 Review of Systems - Review of Systems Systems not reviewed;Unavailable: Altered Mental Status Past Patient History - Infectious Disease Hx of Infectious Diseases: None - Tetanus Immunizations Tetanus Immunization: Unknown - Past Social History Smoking Status: Former Smoker - CARDIAC Hx Cardiac Disorders: Yes (Afib, pacemaker) Hx Pacemaker: Yes (01/10/16 dr smith, [employer]) - PULMONARY Hx Respiratory Disorders: No - NEUROLOGICAL Hx Neurological Disorder: No - HEENT Hx HEENT Problems: No - RENAL Hx Chronic Kidney Disease: No - ENDOCRINE/METABOLIC Hx Hypothyroidism: Yes - HEMATOLOGICAL/ONCOLOGICAL Hx Blood Transfusions: No Hx Blood Transfusion Reaction: (NA) - INTEGUMENTARY Hx Dermatological Problems: No - MUSCULOSKELETAL/RHEUMATOLOGICAL Hx Falls: Yes - GASTROINTESTINAL Hx Gastrointestinal Disorders: No - GENITOURINARY/GYNECOLOGICAL 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) - PSYCHIATRIC Hx Psychophysiologic Disorder: No Hx Substance Use: No - SURGICAL HISTORY Hx Surgeries: Yes (PACEMAKER) Hx Cholecystectomy: Yes Hx Orthopedic Surgery: Yes (r knee sx) - ANESTHESIA Hx Anesthesia: Yes Hx Anesthesia Reactions: Yes (bradycardia, asystole) Hx Malignant Hyperthermia: No Meds Allergies/Adverse Reactions: Allergies Allergy/AdvReac Type Severity Reaction Status Date / Time No Known Allergies Allergy Verified 08/30/18 20:29 - Medications Medications: Current Medications Sodium Chloride (Sodium Chloride 0.9%) 1,000 mls @ 100 mls/hr IV .Q10H SURI Last Admin: 09/01/18 11:30 Dose: 100 mls/hr Physical Exam - Constitutional Appears: No Acute Distress - Head Exam Head Exam: ATRAUMATIC, NORMAL INSPECTION, NORMOCEPHALIC - Eye Exam Eye Exam: EOMI, Normal appearance, PERRL Pupil Exam: NORMAL ACCOMODATION, PERRL - ENT Exam ENT Exam: Mucous Membranes Moist, Normal Exam - Neck Exam Neck exam: Positive for: Normal Inspection - Respiratory Exam Respiratory Exam: Decreased Breath Sounds, Wheezes - Cardiovascular Exam Cardiovascular Exam: REGULAR RHYTHM, +S1, +S2 - GI/Abdominal Exam GI & Abdominal Exam: Soft, Tenderness - Rectal Exam Rectal Exam: Deferred - Extremities Exam Extremities exam: Positive for: normal inspection - Back Exam Back exam: NORMAL INSPECTION - Neurological Exam Neurological exam: Alert, Altered, CN II-XII Intact, Reflexes Normal Additional comments: Gait not tested. He was confused, but followed commands appropriately. Speech slightly dysarthric. NIHSS = 2 - Psychiatric Exam Psychiatric exam: Normal Affect, Normal Mood - Skin Skin Exam: Dry, Intact, Normal Color, Warm Results - Vital Signs Recent Vital Signs: Last Vital Signs Temp 98.3 F 09/01/18 11:30 Pulse 72 09/01/18 11:30 Resp 20 09/01/18 11:30 BP 166/86 H 09/01/18 11:30 Pulse Ox 100 09/01/18 11:30 - Labs Result Diagrams: 09/01/18 11:20 09/01/18 11:20 Labs: Laboratory Results - last 24 hr 09/01/18 09/01/18 09/01/18 11:20 11:20 11:20 WBC 9.9 RBC 3.09 L Hgb 10.1 L Hct 31.0 L MCV 100.3 MCH 32.7 MCHC 32.6 RDW 15.1 H Plt Count 282 MPV 10.2 Gran % 67.8 Lymph % (Auto) 19.5 L [place] % (Auto) 7.6 H Eos % (Auto) 4.7 Baso % (Auto) 0.4 Gran # 6.70 H Lymph # (Auto) 1.9 [place] # (Auto) 0.8 H Eos # (Auto) 0.5 Baso # (Auto) 0.04 PT 18.4 H INR 1.59 APTT 40.4 H Sodium 137 Potassium 4.3 Chloride 104 Carbon Dioxide 31 Anion Gap 7 L BUN 19 Creatinine 1.1 Est GFR ( Amer) > 60 Est GFR (Non-Af Amer) > 60 POC Glucose (mg/dL) Random Glucose 109 Calcium 8.0 L Magnesium 1.9 Total Bilirubin 0.5 AST 47 ALT 39 Alkaline Phosphatase 97 Lactate Dehydrogenase 550 Total Creatine Kinase 90 Troponin I 0.02 Total Protein 6.0 Albumin 2.8 L Globulin 3.2 Albumin/Globulin Ratio 0.9 L Triglycerides 99 Cholesterol 67 L LDL Cholesterol Direct 34 HDL Cholesterol 32 Amylase < 30 L Lipase 45 BBK History Checked 09/01/18 09/01/18 11:26 11:40 WBC RBC Hgb Hct MCV MCH MCHC RDW Plt Count MPV Gran % Lymph % (Auto) [place] % (Auto) Eos % (Auto) Baso % (Auto) Gran # Lymph # (Auto) [place] # (Auto) Eos # (Auto) Baso # (Auto) PT INR APTT Sodium Potassium Chloride Carbon Dioxide Anion Gap BUN Creatinine Est GFR ( Amer) Est GFR (Non-Af Amer) POC Glucose (mg/dL) 119 H Random Glucose Calcium Magnesium Total Bilirubin AST ALT Alkaline Phosphatase Lactate Dehydrogenase Total Creatine Kinase Troponin I Total Protein Albumin Globulin Albumin/Globulin Ratio Triglycerides Cholesterol LDL Cholesterol Direct HDL Cholesterol Amylase Lipase BBK History Checked Patient has bt Assessment & Plan (1) Acute encephalopathy Assessment and Plan: The patient is now almost back to baseline. He is lethargic and based on history, he was unresponsive earlier. He may have had a seizure, but this was not witnessed. I recommend obtaining an EEG for one hour for further evaluation. Continue conservative management. Permissive HTN is recommended for the next 24 hours (only treat BP higher than 220/110 mm Hg). Neurology will follow. Thank you for the consultation. Status: Acute
[2018-09-01] MEDS ORDERED: Dextrose 50% SYRINGE Inj (50 ml) IV PRN (13:09)
--- NOTE | 2018-09-01 14:08 | CP.PCM.CON ---
<Sourav Thompson - Last Filed: 09/01/18 13:53> History of Present Illness - History of Present Illness History of Present Illness: Sourav Thompson, PGY-1 Consult Note for ICU CC: Unresponsive Episode HPI: Patient is 88 y/o male with PMHx of A. Fib on coumadin, pacemaker, aortic insufficiency, CKD, s/p lap converted to open cholecystectomy who had reported episode of unresponsiveness this morning. Patient has been transferred to TCU for strengthening, where he had this episode this morning. Patient had been reportedly ambulating independently earlier before this episode. Shortly after the event, the patient became responsive, started following commands and answering questions. Patient initially admitted to hospital for evaluation of constant RLQ, epigastric and LLQ abdominal pain. Patient was diagnosed with acute cholecystitis and reducible right inguinal hernia. Patient required cardi ac clearance for surgery which led to a cardiac catherization. Cath revealed 70% stenosis in the distal LAD as well as diffusely diseased PAD with 60-70% stenosis in the midpoint. Patient thereafter underwent lap cholecystectomy which was converted to open cholecystectomy. Found to have necrotic gallbladder and cirrhotic liver. Upon presentation, patient currently afebrile, BP stable, comfortable in NAD. Patient does not recollect episode. Patient is AAOx3 currently. Patient further denies chest pain, nausea, vomiting, shortness of breath, headache, dizziness, abdominal pain, urinary incontinence, tongue biting, and hallucinations. PMHx: A.Fib on coumadin, pacemaker, aortic insufficiency, cKD PSHx: Lap parker Meds: as per EMR Allergies: NKDA FHx: Noncontributory Review of Systems - Review of Systems Review of Systems: 12 point ROS completed and negative except as described in HPI. Past Patient History - Infectious Disease Hx of Infectious Diseases: None - Tetanus Immunizations Tetanus Immunization: Unknown - Past Social History Smoking Status: Former Smoker - CARDIAC Hx Cardiac Disorders: Yes (Afib, pacemaker) Hx Pacemaker: Yes (01/10/16 dr smith, [employer]) - PULMONARY Hx Respiratory Disorders: No - NEUROLOGICAL Hx Neurological Disorder: No - HEENT Hx HEENT Problems: No - RENAL Hx Chronic Kidney Disease: No - ENDOCRINE/METABOLIC Hx Hypothyroidism: Yes - HEMATOLOGICAL/ONCOLOGICAL Hx Blood Transfusions: No Hx Blood Transfusion Reaction: (NA) - INTEGUMENTARY Hx Dermatological Problems: No - MUSCULOSKELETAL/RHEUMATOLOGICAL Hx Falls: Yes - GASTROINTESTINAL Hx Gastrointestinal Disorders: No - GENITOURINARY/GYNECOLOGICAL 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) - PSYCHIATRIC Hx Psychophysiologic Disorder: No Hx Substance Use: No - SURGICAL HISTORY Hx Surgeries: Yes (PACEMAKER) Hx Cholecystectomy: Yes Hx Orthopedic Surgery: Yes (r knee sx) - ANESTHESIA Hx Anesthesia: Yes Hx Anesthesia Reactions: Yes (bradycardia, asystole) Hx Malignant Hyperthermia: No Meds Allergies/Adverse Reactions: Allergies Allergy/AdvReac Type Severity Reaction Status Date / Time No Known Allergies Allergy Verified 08/30/18 20:29 - Medications Medications: Current Medications Acetaminophen (Tylenol 325mg Tab) 650 mg PO Q6H PRN PRN Reason: Fever >100.4 F Aspirin (Aspirin Chewable) 81 mg PO DAILY SURI Dextrose (Dextrose 50% Inj) 0 ml IV STAT PRN; Protocol PRN Reason: Hypoglycemia Protocol Sodium Chloride (Sodium Chloride 0.9%) 1,000 mls @ 100 mls/hr IV .Q10H SURI Last Admin: 09/01/18 11:30 Dose: 100 mls/hr Vancomycin HCl (Vancomycin 1gm) 1 gm in 250 mls @ 167 mls/hr IVPB STAT STA; Protocol Stop: 09/01/18 14:16 Dextrose (Dextrose 5% In Water 1000 Ml) 1,000 mls @ 0 mls/hr IV .Q0M PRN; Protocol PRN Reason: Hypoglycemia Protocol Insulin Human Regular (Humulin R Med) 0 units SC ACHS SURI; Protocol Metoprolol Tartrate (Lopressor) 25 mg PO BID SURI Metronidazole (Flagyl) 500 mg PO Q8 SURI; Protocol Tramadol HCl (Ultram) 50 mg PO TID PRN PRN Reason: Pain, moderate (4-7) Warfarin Sodium (Coumadin) 4 mg PO 1800 SURI Physical Exam - Additional Findings Additional findings: - Constitutional Appears: Non-toxic, No Acute Distress - Head Exam Head Exam: ATRAUMATIC - Eye Exam Eye Exam: EOMI. absent: Scleral icterus - ENT Exam ENT Exam: Mucous Membranes Moist - Respiratory Exam Respiratory Exam: NORMAL BREATHING PATTERN. absent: Accessory Muscle Use, Respiratory Distress - Cardiovascular Exam Cardiovascular Exam: REGULAR RHYTHM, +S1, +S2. absent: Bradycardia, Tachycardia - GI/Abdominal Exam GI & Abdominal Exam: Soft. absent: Distended, Firm, Guarding, Rigid, Tenderness Incisions non tender non draining, dry, dressings in place in R lower abdomen - Extremities Exam Extremities Exam: absent: Calf Tenderness - Neurological Exam Neurological Exam: Alert, Awake, Oriented x3 - Skin Skin Exam: Intact, Warm Results - Vital Signs Recent Vital Signs: Last Vital Signs Temp 98.3 F 09/01/18 11:30 Pulse 60 09/01/18 13:00 Resp 20 09/01/18 13:00 BP 154/71 H 09/01/18 13:00 Pulse Ox 99 09/01/18 13:00 - Labs Result Diagrams: 09/01/18 11:20 09/01/18 11:20 Labs: Laboratory Results - last 24 hr 09/01/18 09/01/18 09/01/18 11:20 11:20 11:20 WBC 9.9 RBC 3.09 L Hgb 10.1 L Hct 31.0 L MCV 100.3 MCH 32.7 MCHC 32.6 RDW 15.1 H Plt Count 282 MPV 10.2 Gran % 67.8 Lymph % (Auto) 19.5 L [place] % (Auto) 7.6 H Eos % (Auto) 4.7 Baso % (Auto) 0.4 Gran # 6.70 H Lymph # (Auto) 1.9 [place] # (Auto) 0.8 H Eos # (Auto) 0.5 Baso # (Auto) 0.04 PT 18.4 H INR 1.59 APTT 40.4 H Sodium 137 Potassium 4.3 Chloride 104 Carbon Dioxide 31 Anion Gap 7 L BUN 19 Creatinine 1.1 Est GFR ( Amer) > 60 Est GFR (Non-Af Amer) > 60 POC Glucose (mg/dL) Random Glucose 109 Calcium 8.0 L Magnesium 1.9 Total Bilirubin 0.5 AST 47 ALT 39 Alkaline Phosphatase 97 Lactate Dehydrogenase 550 Total Creatine Kinase 90 Troponin I 0.02 Total Protein 6.0 Albumin 2.8 L Globulin 3.2 Albumin/Globulin Ratio 0.9 L Triglycerides 99 Cholesterol 67 L LDL Cholesterol Direct 34 HDL Cholesterol 32 Amylase < 30 L Lipase 45 Blood Type Antibody Screen BBK History Checked 09/01/18 09/01/18 11:26 11:40 WBC RBC Hgb Hct MCV MCH MCHC RDW Plt Count MPV Gran % Lymph % (Auto) Nicol[place] % (Auto) Eos % (Auto) Baso % (Auto) Gran # Lymph # (Auto) [place] # (Auto) Eos # (Auto) Baso # (Auto) PT INR APTT Sodium Potassium Chloride Carbon Dioxide Anion Gap BUN Creatinine Est GFR ( Amer) Est GFR (Non-Af Amer) POC Glucose (mg/dL) 119 H Random Glucose Calcium Magnesium Total Bilirubin AST ALT Alkaline Phosphatase Lactate Dehydrogenase Total Creatine Kinase Troponin I Total Protein Albumin Globulin Albumin/Globulin Ratio Triglycerides Cholesterol LDL Cholesterol Direct HDL Cholesterol Amylase Lipase Blood Type A NEGATIVE Antibody Screen Negative BBK History Checked Patient has bt Assessment & Plan - Assessment and Plan (Free Text) Assessment: 88 y/o male with PMHx of A. Fib on coumadin, pacemaker, aortic insufficiency, CKD, s/p lap converted to open cholecystectomy POD#5 who had reported episode of unresponsiveness this morning. Neurologically intact, currently in ICU for monitoring. Neuro: - Head CT negative - Neurohospitalist Dr. Palomares - consulted - recs for permissive HTN and EEG noted. - EEG ordered to r/o seizure -AAOx3, no FND, moving extremities past midline. -Monitor neuro status. -Reorient patient as necessary. Cardio: -Lopressor held in light of rec for permissive HTN -RRR, slightly hypertensive, no signs of HD compromise -Maintain MAP>65. -Monitor for S/S, HD compromise. Pulm: -No signs of respiratory distress. CTA B/L -Maintain O2 saturation>92%. -O2 NC PRN -CXR 09/01/18: evolving R lower lobe infiltrate -Elevate bed to 30 degrees GI: s/p parker - 09/01/18 CT abd/pelvis: Postoperative changes in the right upper quadrant consist of air/fluid in the gallbladder fossa. Adjacent drain identified. Trace free air noted. Postoperative changes anterior abdominal wall likely hematoma. This appears subjacent to surgical clips. Redemonstration of bladder wall mass, Small bilateral pleural effusions. Dependent atelectatic changes/infiltrates. Right middle lobe infiltrate. - General surgery on board - pain control and monitor drain output. - Metronidazole q8 - Tolerating diet well. Endocrinology: - Random glucose: 119 - Maintain euglycemia. Heme/Onc: - Warfarin for A. fib - H/H stable at 10.1 - No signs of HD compromise. - Continue monitoring H/H ID: - Afebrile, no leukocytosis - Follow up BCx, UCx, Procalcitonin - Vanc, Zosyn, Metronidazole - Repeat CXR ordered for AM - Monitor for signs and symptoms of infection. DVT prophylaxis: Warfarin Patient seen, case reviewed and plan approved by Dr. aRsheed. Sourav Thompson, PGY-1 <Paramjit Rasheed - Last Filed: 09/01/18 15:24> Meds - Medications Medications: Current Medications Acetaminophen (Tylenol 325mg Tab) 650 mg PO Q6H PRN PRN Reason: Fever >100.4 F Aspirin (Aspirin Chewable) 81 mg PO DAILY SURI Dextrose (Dextrose 50% Inj) 0 ml IV STAT PRN; Protocol PRN Reason: Hypoglycemia Protocol Sodium Chloride (Sodium Chloride 0.9%) 1,000 mls @ 100 mls/hr IV .Q10H SURI Last Admin: 09/01/18 11:30 Dose: 100 mls/hr Dextrose (Dextrose 5% In Water 1000 Ml) 1,000 mls @ 0 mls/hr IV .Q0M PRN; Protocol PRN Reason: Hypoglycemia Protocol Vancomycin HCl (Vancomycin 1gm) 1 gm in 250 mls @ 167 mls/hr IVPB DAILY SURI; Protocol Piperacillin Sod/Tazobactam Sod (Zosyn 3.375 In Ns 100ml) 100 mls @ 25 mls/hr IVPB Q12 SURI; Protocol Stop: 09/02/18 01:59 Insulin Human Regular (Humulin R Med) 0 units SC ACHS SURI; Protocol Metoprolol Tartrate (Lopressor) 25 mg PO BID SURI Metronidazole (Flagyl) 500 mg PO Q8 SURI; Protocol Tramadol HCl (Ultram) 50 mg PO TID PRN PRN Reason: Pain, moderate (4-7) Warfarin Sodium (Coumadin) 4 mg PO 1800 SURI Results - Vital Signs Recent Vital Signs: Last Vital Signs Temp 97.7 F 09/01/18 14:36 Pulse 61 09/01/18 14:36 Resp 20 09/01/18 14:36 BP 158/65 H 09/01/18 14:36 Pulse Ox 100 09/01/18 14:36 - Labs Result Diagrams: 09/01/18 11:20 09/01/18 11:20 Labs: Laboratory Results - last 24 hr 09/01/18 09/01/18 09/01/18 11:20 11:20 11:20 WBC 9.9 RBC 3.09 L Hgb 10.1 L Hct 31.0 L MCV 100.3 MCH 32.7 MCHC 32.6 RDW 15.1 H Plt Count 282 MPV 10.2 Gran % 67.8 Lymph % (Auto) 19.5 L [place] % (Auto) 7.6 H Eos % (Auto) 4.7 Baso % (Auto) 0.4 Gran # 6.70 H Lymph # (Auto) 1.9 [place] # (Auto) 0.8 H Eos # (Auto) 0.5 Baso # (Auto) 0.04 PT 18.4 H INR 1.59 APTT 40.4 H Sodium 137 Potassium 4.3 Chloride 104 Carbon Dioxide 31 Anion Gap 7 L BUN 19 Creatinine 1.1 Est GFR ( Amer) > 60 Est GFR (Non-Af Amer) > 60 POC Glucose (mg/dL) Random Glucose 109 Calcium 8.0 L Magnesium 1.9 Total Bilirubin 0.5 AST 47 ALT 39 Alkaline Phosphatase 97 Lactate Dehydrogenase 550 Total Creatine Kinase 90 Troponin I 0.02 Total Protein 6.0 Albumin 2.8 L Globulin 3.2 Albumin/Globulin Ratio 0.9 L Triglycerides 99 Cholesterol 67 L LDL Cholesterol Direct 34 HDL Cholesterol 32 Amylase < 30 L Lipase 45 Blood Type Antibody Screen BBK History Checked 09/01/18 09/01/18 11:26 11:40 WBC RBC Hgb Hct MCV MCH MCHC RDW Plt Count MPV Gran % Lymph % (Auto) [place] % (Auto) Eos % (Auto) Baso % (Auto) Gran # Lymph # (Auto) [place] # (Auto) Eos # (Auto) Baso # (Auto) PT INR APTT Sodium Potassium Chloride Carbon Dioxide Anion Gap BUN Creatinine Est GFR ( Amer) Est GFR (Non-Af Amer) POC Glucose (mg/dL) 119 H Random Glucose Calcium Magnesium Total Bilirubin AST ALT Alkaline Phosphatase Lactate Dehydrogenase Total Creatine Kinase Troponin I Total Protein Albumin Globulin Albumin/Globulin Ratio Triglycerides Cholesterol LDL Cholesterol Direct HDL Cholesterol Amylase Lipase Blood Type A NEGATIVE Antibody Screen Negative BBK History Checked Patient has bt Assessment & Plan - Assessment and Plan (Free Text) Assessment: Patient seen and examined on rounds, with resident, agree with note with foll owing additions/exceptions: Patient is 88yo male with PMHx of A. Fib on coumadin, pacemaker, aortic insufficiency, CKD, s/p lap converted to open cholecystectomy who had reported episode of unresponsiveness this morning. Pt was on TCU RRR called for AMS Patient subsequently regained consciousness in the ER CT head negative Labs, imaging, chart reviewed Patient currently afebrile, BP stable, comfortable in NAD, awake, alert, following commands AMS Afib on A/C PPM AI CKD S.P Cholecystectomy PNA, aspiration Recommend: - supp o2 as needed, duonebs PRN - Broad spectrum abx cover for aspiration PNA - Vanco, Zosyn - IVF - Pain control - procal, BCx, UCx, - Monitor Cr - LFTs - FS control - GI ppx - DVT ppx - Monitor in MICU Critical care time 35 minutes
--- NOTE | 2018-09-01 16:24 | ED PDOC ---
Arrival/HPI - General Chief Complaint: Altered Mental Status Time Seen by Provider: 09/01/18 10:55 Historian: Other (TCU staff unit) - History of Present Illness Narrative History of Present Illness (Text): 09/01/18 16:24 A 88 year old male, whose past medical history includes Atrial Fibrillation on Coumadin, pacemaker, CHF, diabetes, BPH, and hypertension, brought into the emergency department for AMS s/p rapid response in TCU. Patient was admitted to the TCU for open cholecystectomy. Per staff, patient became suddenly unresponsive, airway/breathing and circulation were still present and no CPR was performed. Blood sugar level in the unit was 118. In the ER, patient continues to be unresponsive. Code stroke was called at 11:10. Limited HPI and ROS due to patient's AMS. PMD: Dr. Griggs Past Medical History - Provider Review Nursing Documentation Reviewed: Yes - Infectious Disease Hx of Infectious Diseases: None - Tetanus Immunization Tetanus Immunization: Unknown - Cardiac Hx Cardiac Disorders: Yes Hx Congestive Heart Failure: Yes Hx Hypertension: Yes - Pulmonary Hx Respiratory Disorders: No - Neurological Hx Neurological Disorder: No - HEENT Hx HEENT Disorder: No - Renal Hx Renal Disorder: No - Endocrine/Metabolic Hx Hypothyroidism: Yes - Hematological/Oncological Hx Blood Transfusions: No Hx Blood Transfusion Reaction: (NA) - Integumentary Hx Dermatological Disorder: No - Musculoskeletal/Rheumatological Hx Falls: Yes - Gastrointestinal Hx Gastrointestinal Disorders: No - Genitourinary/Gynecological 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) - Psychiatric Hx Psychophysiologic Disorder: No Hx Substance Use: No - Past Surgical History Past Surgical History: No Previous - Surgical History Hx Cholecystectomy: Yes Hx Orthopedic Surgery: Yes (r knee sx) - Anesthesia Hx Anesthesia: Yes Hx Anesthesia Reactions: Yes (bradycardia, asystole) Hx Malignant Hyperthermia: No - Suicidal Assessment Feels Threatened In Home Enviroment: No Family/Social History - Physician Review Nursing Documentation Reviewed: Yes Family/Social History: No Known Family HX Smoking Status: Former Smoker Hx Alcohol Use: Yes (social) Hx Substance Use: No Hx Substance Use Treatment: No Allergies/Home Meds Allergies/Adverse Reactions: Allergies No Known Allergies Allergy (Verified 08/30/18 20:29) Home Medications: Home Meds Medication Instructions Recorded Confirmed Isosorbide Mononitrate [Isosorbide 1 tab PO DAILY 04/01/16 08/30/18 Mononitrate ER] Lisinopril 20 mg PO DAILY 04/01/16 08/30/18 Tamsulosin [Flomax] 0.4 mg PO DAILY 04/19/18 08/30/18 Review of Systems - Review of Systems Systems not reviewed;Unavailable: Altered Mental Status Physical Exam Vital Signs Temp Pulse Resp BP Pulse Ox 09/01/18 13:45 60 18 156/78 H 100 09/01/18 13:00 60 20 154/71 H 99 09/01/18 12:00 62 18 159/88 H 98 09/01/18 11:40 62 20 158/91 H 100 09/01/18 10:55 98.3 F 66 18 166/86 H 98 Blood Pressure: Hypertensive Pulse: Regular Respiratory Rate: Normal - Systems Exam Head: Present: Atraumatic, Normocephalic Pupils: Present: PERRL Extroacular Muscles: Present: EOMI Conjunctiva: Present: Normal Mouth: Present: Dry Neck: Present: Normal Range of Motion Respiratory/Chest: Present: Other (course breath sounds bilaterally (right>left).) Cardiovascular: Present: Regular Rate and Rhythm, Normal S1, S2. No: Murmurs Abdomen: Present: Normal Bowel Sounds, Other (healing surgical scar to RUQ, no active bleeding.). No: Tenderness, Distention, Peritoneal Signs Back: Present: Normal Inspection Upper Extremity: Present: Normal Inspection. No: Cyanosis, Edema Lower Extremity: Present: Normal Inspection. No: Edema Neurological: Present: GCS=15, CN II-XII Intact, Speech Normal Skin: Present: Warm, Dry, Normal Color. No: Rashes Psychiatric: Present: Other (AMS). No: Alert, Oriented x 3, Normal Insight, Normal Concentration Medical Decision Making ED Course and Treatment: 09/01/18 16:26 Impression: 88 year old male with AMS brought in from TCU s/p rapid response. Physical exam shows dry mucous membranes; course breath sounds bilaterally (right>left); abdomen: healing surgical scar to RUQ, no active bleeding, positive bowel sounds, heart: normal exam. Plan: -- Abd/Pelvis CT -- Head CT -- Chest X-ray -- Labs -- Urine Culture -- Urinalysis -- Reassess and disposition Prior Visits: Notes and results from previous visits were reviewed. Patient was last seen here in the emergency department on 08/24/2018 for 10/10 severity constant RLQ, epigastric and LLQ abdominal pain. Patient was admitted. Progress Notes: EKG: Ordered, reviewed, and independently interpreted the EKG. Rate : 62 BPM Rhythm : Ventricular paced. Interpretation : No ST-segment elevations or depressions, no T-wave inversions, normal intervals. Comparison : No previous EKG for comparison. 09/01/18 11:[address] Palomares, who recommends EEG on patient during admission. Spoke to Dr. Griggs, patient's PMD, and spoke to latin american studies director. Patient accepted admission to ICU and antibiotics prescribed by Dr. Griggs. 09/01/2018 11:[address] IMPRESSION: No acute intracranial abnormalities. No significant findings to account for the clinical presentation. No significant interval change compared to the prior examination(s). Dictator: Dieter Willard MD 09/01/2018 11:47 Abd/Pelvis CT IMPRESSION: Postoperative changes in the right upper quadrant consist of air/fluid in the gallbladder fossa. Adjacent drain identified. Trace free air noted. Postoperative changes anterior abdominal wall likely hematoma. This appears subjacent to surgical clips. Redemonstration of bladder wall mass. Small bilateral pleural effusions. Dependent atelectatic changes/infiltrates. Right middle lobe infiltrate. Dictator: Dieter Willard MD 09/01/2018 11:55 Chest X-ray IMPRESSION: Evolving right lower lobe infiltrate. Cardiomegaly. New pulmonary vascular congestion. Dictator: Dieter Willard MD - Lab Interpretations Lab Results: PT 18.4 SECONDS (9.4-12.5) H 09/01/18 11:20 INR 1.59 09/01/18 11:20 APTT 40.4 Seconds (25.1-36.5) H 09/01/18 11:20 Troponin I 0.02 ng/mL 09/01/18 11:20 Total Bilirubin 0.5 mg/dL (0.2-1.3) 09/01/18 11:20 AST 47 U/L (17-59) 09/01/18 11:20 ALT 39 U/L (7-56) 09/01/18 11:20 Alkaline Phosphatase 97 U/L (38-126) 09/01/18 11:20 Total Protein 6.0 g/dL (5.8-8.3) 09/01/18 11:20 Albumin 2.8 g/dL (3.0-4.8) L 09/01/18 11:20 Globulin 3.2 gm/dL 09/01/18 11:20 Albumin/Globulin Ratio 0.9 (1.1-1.8) L 09/01/18 11:20 Amylase < 30 U/L (35-125) L 09/01/18 11:20 Lipase 45 U/L (23-300) 09/01/18 11:20 - RAD Interpretation Radiology Orders: 09/01/18 10:58 ABD & PELVIS IV CONTRAST ONLY [CT] Stat HEAD W/O CONTRAST [CT] Stat 09/01/18 11:00 CXR [CHEST PORTABLE] [RAD] Stat - Medication Orders Current Medication Orders: Acetaminophen (Tylenol 325mg Tab) 650 mg PO Q6H PRN PRN Reason: Fever >100.4 F Aspirin (Aspirin Chewable) 81 mg PO DAILY [facility] Dextrose (Dextrose 50% Inj) 0 ml IV STAT PRN; Protocol PRN Reason: Hypoglycemia Protocol Sodium Chloride (Sodium Chloride 0.9%) 1,000 mls @ 100 mls/hr IV .Q10H [facility] Last Admin: 09/01/18 11:30 Dose: 100 mls/hr eMAR Start Stop Document 09/01/18 11:30 ERAN (Rec: 09/01/18 12:30 ERAN [id number]) Intravenous Solution Start Date 09/01/18 Start Time 11:30 Dextrose (Dextrose 5% In Water 1000 Ml) 1,000 mls @ 0 mls/hr IV .Q0M PRN; Protocol PRN Reason: Hypoglycemia Protocol Vancomycin HCl (Vancomycin 1gm) 1 gm in 250 mls @ 167 mls/hr IVPB DAILY [facility]; Protocol Piperacillin Sod/Tazobactam Sod (Zosyn 3.375 In Ns 100ml) 100 mls @ 25 mls/hr IVPB Q12 [facility]; Protocol Stop: 09/02/18 01:59 Insulin Human Regular (Humulin R Med) 0 units SC ACHS [facility]; Protocol Metoprolol Tartrate (Lopressor) 25 mg PO BID [facility] Metronidazole (Flagyl) 500 mg PO Q8 [facility]; Protocol Tramadol HCl (Ultram) 50 mg PO TID PRN PRN Reason: Pain, moderate (4-7) Warfarin Sodium (Coumadin) 4 mg PO 1800 [facility] Discontinued Medications Vancomycin HCl (Vancomycin 1gm) 1 gm in 250 mls @ 167 mls/hr IVPB STAT STA; Protocol Stop: 09/01/18 14:16 Last Admin: 09/01/18 14:50 Dose: 167 mls/hr eMAR Start Stop Document 09/01/18 14:50 ALIPM (Rec: 09/01/18 14:52 ALIPM [id number]) Intravenous Solution Start Date 09/01/18 Start Time 14:51 End Date 09/01/18 End time 17:51 Total Infusion Time 180 Piperacillin Sod/Tazobactam Sod (Zosyn 3.375 In Ns 100ml) 100 mls @ 200 mls/hr IVPB STAT STA; Protocol Stop: 09/01/18 13:16 Last Admin: 09/01/18 13:20 Dose: 200 mls/hr eMAR Start Stop Document 09/01/18 13:20 SZA (Rec: 09/01/18 13:29 SZA [id number]) Intravenous Solution Start Date 09/01/18 Start Time 13:20 End Date 09/01/18 End time 14:00 Total Infusion Time 40 Metoprolol Tartrate (Lopressor) 50 mg PO BID [facility] NIHSS Scale ([place]) Time Performed: 11:10 - How Severe is the Stoke Baseline Level of Consciousness: 2=Obtunded LOC to Questions: 0=Both comments correct LOC to commands: 0=Obeys both correctly Best Gaze: 0=Normal Visual: 0=No visual loss Facial: 0=Normal Motor Arm - Left: 0=No drift Motor Arm - Right: 0=No drift Motor Leg - Left: 0=No drift Motor Leg - Right: 0=No drift Limb Ataxia: 0=Absent Sensory: 0=Normal Best Language: 0=No aphasia Dysarthia: 0=Normal articulation Extinction & Inattention (Neglect): 0=Normal, no object Score: 2 Risk Level: Minor Stroke Risk rTPA Inclusion/Exclusion - Refusal of Treatment Patient Refused Treatment: No - Inclusion Criteria for Altepase Patient is 18 years or Older: Yes The Clinical Diagnosis of Ischemic Stroke That is Causing a Potentially Disabling Neurological Deficit: No Time of Onset is Well Established to be Less Than 270 Minute Before Treatment Would Begin: Yes Risk/Benefit Discussed With Patient/Family Member Present: No - Warning to TPA With Conditions Condition: Recent Surgery Less Than 15 Days - Scribe Statement The provider has reviewed the documentation as recorded by the Ivory Cornelius Provider Scribe Attestation: All medical record entries made by the Scribe were at my direction and personally dictated by me. I have reviewed the chart and agree that the record accurately reflects my personal performance of the history, physical exam, medical decision making, and the department course for this patient. I have also personally directed, reviewed, and agree with the discharge instructions and disposition. Disposition/Present on Arrival - Present on Arrival Any Indicators Present on Arrival: No History of DVT/PE: No History of Uncontrolled Diabetes: No Urinary Catheter: No History of Decub. Ulcer: No History Surgical Site Infection Following: None - Disposition Have Diagnosis and Disposition been Completed?: Yes Diagnosis: Altered mental status, Pneumonia Disposition: HOSPITALIZED Disposition Time: 12:20 Patient Problems: Current Active Problems Problem Status Onset Acute encephalopathy Acute Condition: GUARDED
[2018-09-01] MEDS: Insulin Reg-MEDIUM-Coverage SC SCH ×2 (16:45→22:00)
--- NOTE | 2018-09-01 20:40 | CP.PCM.PN ---
Subjective - Date & Time of Evaluation Date of Evaluation: 09/01/18 Time of Evaluation: 13:30 - Subjective Subjective: Surgery Progress note- Dr. Lema Patient initially seen and examined at bedside this AM in TCU. At that time patient was doing well, + OOB and ambulating. Later in the day patient had [employer] called due to being unresponsive. Patient was later seen and examined in detail with Dr. Lema in the ED. Patient drain 30cc serosang fluid, non bilious. Incisions C/D/I no strikethrough. DVT ppx injections evident in LLQ. Patient awake and responding to verbal stimuli. Objective - Vital Signs/Intake and Output Vital Signs (last 24 hours): Temp Pulse Resp BP Pulse Ox 97.7 F 60 14 165/63 H 93 L 09/01/18 14:36 09/01/18 18:10 09/01/18 18:10 09/01/18 18:00 09/01/18 18:10 Intake and Output: 09/01/18 09/02/18 18:59 06:59 Intake Total 550 Output Total 320 Balance 230 - Medications Medications: Current Medications Acetaminophen (Tylenol 325mg Tab) 650 mg PO Q6H PRN PRN Reason: Fever >100.4 F Aspirin (Aspirin Chewable) 81 mg PO DAILY [facility] Last Admin: 09/01/18 16:57 Dose: 81 mg Dextrose (Dextrose 50% Inj) 0 ml IV STAT PRN; Protocol PRN Reason: Hypoglycemia Protocol Sodium Chloride (Sodium Chloride 0.9%) 1,000 mls @ 100 mls/hr IV .Q10H [facility] Last Admin: 09/01/18 11:30 Dose: 100 mls/hr Dextrose (Dextrose 5% In Water 1000 Ml) 1,000 mls @ 0 mls/hr IV .Q0M PRN; Protocol PRN Reason: Hypoglycemia Protocol Vancomycin HCl (Vancomycin 1gm) 1 gm in 250 mls @ 167 mls/hr IVPB DAILY [facility]; Protocol Piperacillin Sod/Tazobactam Sod (Zosyn 3.375 In Ns 100ml) 100 mls @ 25 mls/hr IVPB Q8 [facility]; Protocol Stop: 09/10/18 22:01 Insulin Human Regular (Humulin R Med) 0 units SC ACHS [facility]; Protocol Last Admin: 09/01/18 16:45 Dose: Not Given Metoprolol Tartrate (Lopressor) 25 mg PO BID [facility] Tramadol HCl (Ultram) 50 mg PO TID PRN PRN Reason: Pain, moderate (4-7) Warfarin Sodium (Coumadin) 4 mg PO 1800 [facility] Last Admin: 09/01/18 17:04 Dose: 4 mg - Labs Labs: 09/01/18 11:20 09/01/18 11:20 PT 18.4 SECONDS (9.4-12.5) H 09/01/18 11:20 INR 1.59 09/01/18 11:20 APTT 40.4 Seconds (25.1-36.5) H 09/01/18 11:20 - Constitutional Appears: Non-toxic, No Acute Distress - Head Exam Head Exam: ATRAUMATIC - Eye Exam Eye Exam: EOMI, PERRL - ENT Exam ENT Exam: Mucous Membranes Moist - Respiratory Exam Respiratory Exam: NORMAL BREATHING PATTERN. absent: Accessory Muscle Use, Respiratory Distress - Cardiovascular Exam Cardiovascular Exam: REGULAR RHYTHM. absent: Bradycardia, Tachycardia - GI/Abdominal Exam GI & Abdominal Exam: Soft, Tenderness (Mildly tender around incisions). absent: Distended, Firm, Guarding, Rigid Additional comments: Fabrice drain w/ serosang drainage - Extremities Exam Extremities Exam: absent: Calf Tenderness - Neurological Exam Neurological Exam: Alert, Awake - Psychiatric Exam Psychiatric exam: Normal Affect - Skin Skin Exam: Intact, Warm Assessment and Plan - Assessment and Plan (Free Text) Assessment: 88M s/p Lap converted to open cholecystectomy POD #5, patient recovering in TCU and rapid response called due to patient being unresponsive. Patient transferred to ED for further workup Plan: - f/u work up; CT, CXR, repeat labs - monitor drain output - keep drain in place - pain control PRN- avoid narcotics - will continue to follow - d/w Dr. Lema [facility] PGY2
[2018-09-01] MEDS: Piperacillin/Tazobact 3.375 gm 100 ML IVPB SCH (21:50)
[2018-09-01] MEDS ORDERED: Piperacillin/Tazobact 3.375 gm 100 ML IVPB SCH (22:00)
--- NOTE | 2018-09-01 22:04 | CARD ---
APPROVED REPORT Date of service: 09/01/2018 EKG Measurement Heart [id number] <Conclusion> Electronic ventricular pacemaker
[2018-09-02] MEDS: Piperacillin/Tazobact 3.375 gm 100 ML IVPB SCH ×3 (05:31→21:35)
[2018-09-02 06:59] LABS: BASO # 0.02 K/mm3 (0.0-2.0); BASO % 0.2 % (0.0-3.0); EOS # 0.4 (0.0-0.7); EOS % 3.6 % (1.5-5.0); GRAN # 6.84 (1.4-6.5); GRAN % 67.4 % (50.0-68.0); HEMOGLOBIN 10.2 g/dL (14.0-18.0); LYMPH % 19.4 % (22.0-35.0); MEAN CELL VOLUME 99.4 fl (80.0-105.0); MEAN CORPUSCULAR HEMOGLOBIN 32.5 pg (25.0-35.0); MEAN CORPUSCULAR HGB CONC 32.7 g/dl (31.0-37.0); MONO % 9.4 % (1.0-6.0); RBC 3.14 10^6/uL (3.5-6.1); RED CELL DISTRIBUTION WIDTH 15.5 % (11.5-14.5); WHITE BLOOD COUNT 10.1 10^3/uL (4.5-11.0)
[2018-09-02 07:07] LABS: INR 1.62; PARTIAL THROMBOPLASTIN TIME 33.3 Seconds (25.1-36.5); PROTHROMBIN TIME 18.8 SECONDS (9.4-12.5)
[2018-09-02 07:13] LABS: ALB/GLOB RATIO 0.9 (1.1-1.8); ALBUMIN 2.8 g/dL (3.0-4.8); ALT/SGPT 42 U/L (7-56); AST/SGOT 42 U/L (17-59); BLOOD UREA NITROGEN 15 mg/dL (7-21); GFR NON-AFRICAN AMERICAN 57
[2018-09-02] MEDS ORDERED: Enoxaparin 80 mg Syringe SC SCH (08:00)
[2018-09-02] MEDS: Insulin Reg-MEDIUM-Coverage SC SCH ×3 (08:03→16:48)
--- NOTE | 2018-09-02 09:01 | CP.PCM.PN ---
Objective - Vital Signs/Intake and Output Vital Signs (last 24 hours): Temp Pulse Resp BP Pulse Ox 98.7 F 63 23 163/65 H 100 09/02/18 00:00 09/02/18 06:30 09/02/18 06:30 09/02/18 06:00 09/02/18 06:30 Intake and Output: 09/02/18 09/02/18 06:59 18:59 Intake Total 1500 Output Total 855 Balance 645 - Medications Medications: Current Medications Acetaminophen (Tylenol 325mg Tab) 650 mg PO Q6H PRN PRN Reason: Fever >100.4 F Aspirin (Aspirin Chewable) 81 mg PO DAILY [facility] Last Admin: 09/01/18 16:57 Dose: 81 mg Dextrose (Dextrose 50% Inj) 0 ml IV STAT PRN; Protocol PRN Reason: Hypoglycemia Protocol Sodium Chloride (Sodium Chloride 0.9%) 1,000 mls @ 100 mls/hr IV .Q10H [facility] Last Admin: 09/01/18 11:30 Dose: 100 mls/hr Dextrose (Dextrose 5% In Water 1000 Ml) 1,000 mls @ 0 mls/hr IV .Q0M PRN; Protocol PRN Reason: Hypoglycemia Protocol Vancomycin HCl (Vancomycin 1gm) 1 gm in 250 mls @ 167 mls/hr IVPB DAILY [facility]; Protocol Piperacillin Sod/Tazobactam Sod (Zosyn 3.375 In Ns 100ml) 100 mls @ 25 mls/hr IVPB Q8 [facility]; Protocol Stop: 09/10/18 22:01 Last Admin: 09/02/18 05:31 Dose: 25 mls/hr Insulin Human Regular (Humulin R Med) 0 units SC ACHS [facility]; Protocol Last Admin: 09/02/18 08:03 Dose: Not Given Metoprolol Tartrate (Lopressor) 25 mg PO BID [facility] Tramadol HCl (Ultram) 50 mg PO TID PRN PRN Reason: Pain, moderate (4-7) Warfarin Sodium (Coumadin) 4 mg PO 1800 [facility] Last Admin: 09/01/18 17:04 Dose: 4 mg - Labs Labs: 09/02/18 06:40 09/02/18 06:40 PT 18.8 SECONDS (9.4-12.5) H 09/02/18 06:40 INR 1.62 09/02/18 06:40 APTT 33.3 Seconds (25.1-36.5) 09/02/18 06:40
--- NOTE | 2018-09-02 09:15 | CP.PCM.PN ---
Subjective - Date & Time of Evaluation Date of Evaluation: 09/02/18 Time of Evaluation: 09:11 - Subjective Subjective: SUrgery PT is tx to ICU after A fib RVR and AMS. PT seen and examined. Denies pain, fever, nauea. Objective - Vital Signs/Intake and Output Vital Signs (last 24 hours): Temp Pulse Resp BP Pulse Ox 98.7 F 63 23 163/65 H 100 09/02/18 00:00 09/02/18 06:30 09/02/18 06:30 09/02/18 06:00 09/02/18 06:30 Intake and Output: 09/02/18 09/02/18 06:59 18:59 Intake Total 1500 Output Total 855 Balance 645 - Medications Medications: Current Medications Acetaminophen (Tylenol 325mg Tab) 650 mg PO Q6H PRN PRN Reason: Fever >100.4 F Aspirin (Aspirin Chewable) 81 mg PO DAILY [facility] Last Admin: 09/01/18 16:57 Dose: 81 mg Dextrose (Dextrose 50% Inj) 0 ml IV STAT PRN; Protocol PRN Reason: Hypoglycemia Protocol Sodium Chloride (Sodium Chloride 0.9%) 1,000 mls @ 100 mls/hr IV .Q10H [facility] Last Admin: 09/01/18 11:30 Dose: 100 mls/hr Dextrose (Dextrose 5% In Water 1000 Ml) 1,000 mls @ 0 mls/hr IV .Q0M PRN; Protocol PRN Reason: Hypoglycemia Protocol Vancomycin HCl (Vancomycin 1gm) 1 gm in 250 mls @ 167 mls/hr IVPB DAILY [facility]; Protocol Piperacillin Sod/Tazobactam Sod (Zosyn 3.375 In Ns 100ml) 100 mls @ 25 mls/hr IVPB Q8 [facility]; Protocol Stop: 09/10/18 22:01 Last Admin: 09/02/18 05:31 Dose: 25 mls/hr Insulin Human Regular (Humulin R Med) 0 units SC ACHS [facility]; Protocol Last Admin: 09/02/18 08:03 Dose: Not Given Metoprolol Tartrate (Lopressor) 25 mg PO BID [facility] Tramadol HCl (Ultram) 50 mg PO TID PRN PRN Reason: Pain, moderate (4-7) Warfarin Sodium (Coumadin) 4 mg PO 1800 [facility] Last Admin: 01/13/19 17:04 Dose: 4 mg - Labs Labs: 09/02/18 06:40 09/02/18 06:40 PT 18.8 SECONDS (9.4-12.5) H 09/02/18 06:40 INR 1.62 09/02/18 06:40 APTT 33.3 Seconds (25.1-36.5) 09/02/18 06:40 - Constitutional Appears: No Acute Distress - Head Exam Head Exam: ATRAUMATIC, NORMAL INSPECTION, NORMOCEPHALIC - Eye Exam Eye Exam: EOMI, Normal appearance, PERRL Pupil Exam: NORMAL ACCOMODATION, PERRL - ENT Exam ENT Exam: Mucous Membranes Moist, Normal Exam - Respiratory Exam Respiratory Exam: NORMAL BREATHING PATTERN - Cardiovascular Exam Cardiovascular Exam: REGULAR RHYTHM - GI/Abdominal Exam GI & Abdominal Exam: Soft (Incision C/D/I. drain SS ) - Extremities Exam Extremities Exam: Full ROM - Back Exam Back Exam: NORMAL INSPECTION - Neurological Exam Neurological Exam: Alert, Awake, CN II-XII Intact, Normal Gait, Oriented x3 Assessment and Plan - Assessment and Plan (Free Text) Assessment: POD 6 open cholecystectomy mornitor drains Medical management pain /nausea control Will SKY george
--- NOTE | 2018-09-02 09:52 | HP ---
DATE OF EXAM: 09/02/2018 HISTORY OF PRESENT ILLNESS: He was in the Transitional Care Unit. Before that, he was in the hospital side status post open cholecystectomy with a complication and down he has a drain. He was doing well and then he went to the TCU. In TCU, he had a rapid response due to the lethargy, was unable to be woken up. He was sent to the emergency room and then sent to the Intensive Care Unit. I saw him this morning. He is a 88-year-old white man, he is sitting up in bed back to his baseline. Alert and oriented, comfortable, not that hungry some right upper quadrant pain from the surgical site. PAST MEDICAL HISTORY: Atrial fibrillation on Coumadin, pacemaker, CHF, diabetes, BPH, hypertension, status post open cholecystectomy. He became unresponsive. He is doing better now. He is hypertensive, hypothyroid, history of falls, BPH. He is to be on Flomax, I stopped it at this time. PAST SURGICAL HISTORY: He had a cholecystectomy and right knee surgery. He has a bradycardia in the past. He has been asystole in the past. FAMILY HISTORY: No known family history. SOCIAL HISTORY: Former smoker. He does drink alcohol up until about a month ago. ALLERGIES: NO KNOWN DRUG ALLERGIES. MEDICATIONS: He was on Imdur, lisinopril, Flomax. REVIEW OF SYSTEMS: At this time when he came in, he had altered mental status. He is presently alert, comfortable. No chest pain or shortness of breath. Right upper quadrant pain, not that hungry. Weak. PHYSICAL EXAMINATION: VITAL SIGNS: He has a 60 pulse, 18 respiratory rate, 156/78 blood pressure, 100% O2 sat. HEENT: His head is atraumatic, normocephalic. Extraocular muscles are intact. Pupils react to light. Throat is moist. NECK: Supple. HEART: Regular rate. Normal S1, S2. LUNGS: Decreased breath sounds bilaterally. Mild congestion bilaterally, right worse than the left. ABDOMEN: Soft. He has got healing surgical scars in the right side with multiple clementina throughout his right side which are pinching and he tells me. No edema in the legs. GCS is 15. NEUROLOGIC: Cranial nerves II-XII, normal speech at this time. SKIN: Warm and dry except for the right upper quadrant area of multiple incision sites, multiple clementina. He has got a drain in place. LABORATORY DATA: He had multiple tests performed. He had a chest x-ray which showed the following right lower lobe infiltrates. He had a CT scan of his abdomen and pelvis which showed right sided surgical areas that were done. He has 10.1 white count, 10.2 hemoglobin, 31.2 hematocrit with 286 platelets. INR is 1.62, on Coumadin. 140 sodium, potassium 3.9, BUN 15, creatinine 1.2. GFR is greater than 60, sugar is 98, calcium is 8, phosphorous 3, magnesium 1.8, total bili is 0.6, AST is 42, ALT is 42, alk phos 103, total protein 6. Procalcitonin is low at 0.12. He is currently on aspirin, Coumadin, dextrose, insulin, Lopressor, IV fluids, Tylenol, Ultram, vancomycin, Zosyn. We will check his labs tomorrow. Physical therapy, out of bed to chair. I am glad he woke up, and he is now almost back to his baseline. We will continue with aggressive treatment and care in the Intensive Care Unit. IV antibiotics as per Infectious Disease. Postop surgical care. We are planning to go to [facility]. Dieter Griggs DO
[2018-09-02] MEDS: Vancomycin 1gm in NS 250ml 1 GM/250 ML BAG IVPB SCH (10:01)
--- NOTE | 2018-09-02 10:15 | RAD ---
Date of service: 09/02/2018 HISTORY: unresponsive episode COMPARISON: 09/01/2018 FINDINGS: LUNGS: Vascular congestion with patchy infiltrate in the right lower lobe PLEURA: No significant pleural effusion identified, no pneumothorax apparent. CARDIOVASCULAR: No aortic atherosclerotic calcification present. Moderate cardiomegaly single lead pacemaker OSSEOUS STRUCTURES: No significant abnormalities. VISUALIZED UPPER ABDOMEN: Normal. OTHER FINDINGS: None. IMPRESSION: Vascular congestion with patchy infiltrate in the right lower lobe
--- NOTE | 2018-09-02 11:59 | CP.CCUPN ---
<Claire Osullivan - Last Filed: 09/02/18 12:59> CCU Subjective - Physician Review Subjective (Free Text): 09/02/18 11:55 Claire Osullivan PGY1 Critical Care Progress Note Patient seen and examined at bedside this morning. No acute events overnight. Resting comfortably and tolerating diet without complaints. Moving all extremities spontaneously and denies CP, SOB, headaches, nausea, vomiting, numbness and tingling. Offers no complaints at this time. Will transfer to [facility] today. CCU Objective - Vital Signs / Intake & Output Vital Signs (Last 4 hours): Vital Signs Temp Pulse Resp BP Pulse Ox 09/02/18 10:33 97.8 F 09/02/18 10:20 62 20 09/02/18 10:10 60 19 09/02/18 10:00 60 20 152/48 H 09/02/18 09:50 63 15 09/02/18 09:40 64 16 09/02/18 09:30 64 22 09/02/18 09:20 63 22 09/02/18 09:10 62 23 09/02/18 09:00 61 21 144/59 L 09/02/18 08:50 69 24 09/02/18 08:40 62 09/02/18 08:30 66 24 09/02/18 08:26 69 09/02/18 08:20 66 25 H 99 09/02/18 08:10 62 21 99 09/02/18 08:00 64 23 165/74 H 100 Intake and Output (Last 8hrs): Intake & Output 09/01/18 09/02/18 09/02/18 22:59 06:59 14:59 Intake Total 550 1500 Output Total 320 855 Balance 230 645 Weight 173 lb Intake: IV 550 1400 IVF 300 1200 IVPB 250 200 Oral 100 Output: Drainage 20 5 Right Abdomen 20 5 Urine 300 850 Condom 300 850 Other: # Bowel Movements 1 - Physical Exam Head: Positive for: Atraumatic, Normocephalic Pupils: Positive for: PERRL Extroacular Muscles: Positive for: EOMI Conjunctiva: Positive for: Normal Mouth: Positive for: Dry Neck: Positive for: Normal Range of Motion Respiratory/Chest: Positive for: Clear to Auscultation. Negative for: Respiratory Distress, Accessory Muscle Use Cardiovascular: Positive for: Regular Rate and Rhythm, Normal S1, S2. Negative for: Murmurs Abdomen: Positive for: Normal Bowel Sounds, Other (healing surgical scar to RUQ, no active bleeding.). Negative for: Tenderness, Distention, Peritoneal Signs Back: Positive for: Normal Inspection Upper Extremity: Positive for: Normal Inspection. Negative for: Cyanosis, Edema Lower Extremity: Positive for: Normal Inspection. Negative for: Edema Neurological: Positive for: GCS=15, CN II-XII Intact, Speech Normal Skin: Positive for: Warm, Dry, Normal Color. Negative for: Rashes Psychiatric: Positive for: Alert, Oriented x 3 - Medications Active Medications: Active Medications Generic Name Dose Route Start Last Admin Trade Name Freq PRN Reason Stop Dose Admin Acetaminophen 650 mg 09/01/18 13:09 Tylenol 325mg Tab PO Q6H PRN Fever >100.4 F Aspirin 81 mg 09/01/18 13:15 09/02/18 10:01 Aspirin Chewable PO 81 mg DAILY SURI Administration Dextrose 0 ml 09/01/18 13:09 Dextrose 50% Inj IV STAT PRN Hypoglycemia Protocol Protocol Furosemide 40 mg 09/02/18 10:00 09/02/18 10:00 Lasix PO 40 mg DAILY SURI Administration Dextrose 1,000 mls @ 0 mls/hr 09/01/18 13:09 Dextrose 5% In Water 1000 Ml IV .Q0M PRN Hypoglycemia Protocol Protocol Per Protocol Vancomycin HCl 1 gm in 250 mls @ 167 mls/hr 09/02/18 10:00 09/02/18 10:01 Vancomycin 1gm IVPB 167 mls/hr DAILY SURI Administration Protocol Piperacillin Sod/Tazobactam Sod 100 mls @ 25 mls/hr 09/01/18 22:00 09/02/18 05:31 Zosyn 3.375 In Ns 100ml IVPB 09/10/18 22:01 25 mls/hr Q8 SURI Administration Protocol Insulin Human Regular 0 units 09/01/18 16:30 09/02/18 08:03 Humulin R Med SC Not Given ACHS [facility] Protocol Metoprolol Tartrate 25 mg 09/01/18 18:00 Lopressor PO BID SURI Tramadol HCl 50 mg 09/01/18 13:09 Ultram PO TID PRN Pain, moderate (4-7) Warfarin Sodium 5 mg 09/02/18 09:37 Coumadin PO 1800 SURI - Patient Studies Lab Studies: Lab Studies 09/02/18 09/02/18 09/02/18 Range/Units 06:40 06:40 06:40 WBC 10.1 (4.5-11.0) 10^3/uL RBC 3.14 L (3.5-6.1) 10^6/uL Hgb 10.2 L (14.0-18.0) g/dL Hct 31.2 L (42.0-52.0) % MCV 99.4 (80.0-105.0) fl MCH 32.5 (25.0-35.0) pg MCHC 32.7 (31.0-37.0) g/dl RDW 15.5 H (11.5-14.5) % Plt Count 286 (120.0-450.0) 10^3/uL MPV 10.0 (7.0-11.0) fl Gran % 67.4 (50.0-68.0) % Lymph % (Auto) 19.4 L (22.0-35.0) % [place] % (Auto) 9.4 H (1.0-6.0) % Eos % (Auto) 3.6 (1.5-5.0) % Baso % (Auto) 0.2 (0.0-3.0) % Gran # 6.84 H (1.4-6.5) Lymph # (Auto) 2.0 (1.2-3.4) [place] # (Auto) 1.0 H (0.1-0.6) Eos # (Auto) 0.4 (0.0-0.7) Baso # (Auto) 0.02 (0.0-2.0) K/mm3 PT 18.8 H (9.4-12.5) SECONDS INR 1.62 APTT 33.3 (25.1-36.5) Seconds Sodium 140 (132-148) mmol/L Potassium 3.9 (3.6-5.0) mmol/L Chloride 106 (98-107) mmol/L Carbon Dioxide 30 (21-33) mmol/L Anion Gap 8 L (10-20) BUN 15 (7-21) mg/dL Creatinine 1.2 (0.8-1.5) mg/dl Est GFR ( Amer) > 60 Est GFR (Non-Af Amer) 57 Random Glucose 98 (70-110) mg/dL Hemoglobin A1c (4.2-6.5) % Calcium 8.0 L (8.4-10.5) mg/dL Phosphorus 3.0 (2.5-4.5) mg/dL Magnesium 1.8 (1.7-2.2) mg/dL Total Bilirubin 0.6 (0.2-1.3) mg/dL AST 42 (17-59) U/L ALT 42 (7-56) U/L Alkaline Phosphatase 103 (38-126) U/L Troponin I ng/mL Total Protein 6.0 (5.8-8.3) g/dL Albumin 2.8 L (3.0-4.8) g/dL Globulin 3.3 gm/dL Albumin/Globulin Ratio 0.9 L (1.1-1.8) LDL Cholesterol Direct (0-129) mg/dL Procalcitonin (0.19-0.49) NG/ML Blood Type Antibody Screen BBK History Checked 09/01/18 09/01/18 09/01/18 Range/Units 13:50 11:40 11:20 WBC (4.5-11.0) 10^3/uL RBC (3.5-6.1) 10^6/uL Hgb (14.0-18.0) g/dL Hct (42.0-52.0) % MCV (80.0-105.0) fl MCH (25.0-35.0) pg MCHC (31.0-37.0) g/dl RDW (11.5-14.5) % Plt Count (120.0-450.0) 10^3/uL MPV (7.0-11.0) fl Gran % (50.0-68.0) % Lymph % (Auto) (22.0-35.0) % [place] % (Auto) (1.0-6.0) % Eos % (Auto) (1.5-5.0) % Baso % (Auto) (0.0-3.0) % Gran # (1.4-6.5) Lymph # (Auto) (1.2-3.4) [place] # (Auto) (0.1-0.6) Eos # (Auto) (0.0-0.7) Baso # (Auto) (0.0-2.0) K/mm3 PT (9.4-12.5) SECONDS INR APTT (25.1-36.5) Seconds Sodium (132-148) mmol/L Potassium (3.6-5.0) mmol/L Chloride (98-107) mmol/L Carbon Dioxide (21-33) mmol/L Anion Gap (10-20) BUN (7-21) mg/dL Creatinine (0.8-1.5) mg/dl Est GFR ( Amer) Est GFR (Non-Af Amer) Random Glucose (70-110) mg/dL Hemoglobin A1c 5.8 (4.2-6.5) % Calcium (8.4-10.5) mg/dL Phosphorus (2.5-4.5) mg/dL Magnesium (1.7-2.2) mg/dL Total Bilirubin (0.2-1.3) mg/dL AST (17-59) U/L ALT (7-56) U/L Alkaline Phosphatase (38-126) U/L Troponin I ng/mL Total Protein (5.8-8.3) g/dL Albumin (3.0-4.8) g/dL Globulin gm/dL Albumin/Globulin Ratio (1.1-1.8) LDL Cholesterol Direct (0-129) mg/dL Procalcitonin 0.12 L (0.19-0.49) NG/ML Blood Type A NEGATIVE Antibody Screen Negative BBK History Checked Patient has bt 09/01/18 09/01/18 Range/Units 11:20 11:20 WBC 9.9 (4.5-11.0) 10^3/uL RBC 3.09 L (3.5-6.1) 10^6/uL Hgb 10.1 L (14.0-18.0) g/dL Hct 31.0 L (42.0-52.0) % MCV 100.3 (80.0-105.0) fl MCH 32.7 (25.0-35.0) pg MCHC 32.6 (31.0-37.0) g/dl RDW 15.1 H (11.5-14.5) % Plt Count 282 (120.0-450.0) 10^3/uL MPV 10.2 (7.0-11.0) fl Gran % 67.8 (50.0-68.0) % Lymph % (Auto) 19.5 L (22.0-35.0) % [place] % (Auto) 7.6 H (1.0-6.0) % Eos % (Auto) 4.7 (1.5-5.0) % Baso % (Auto) 0.4 (0.0-3.0) % Gran # 6.70 H (1.4-6.5) Lymph # (Auto) 1.9 (1.2-3.4) [place] # (Auto) 0.8 H (0.1-0.6) Eos # (Auto) 0.5 (0.0-0.7) Baso # (Auto) 0.04 (0.0-2.0) K/mm3 PT (9.4-12.5) SECONDS INR APTT (25.1-36.5) Seconds Sodium (132-148) mmol/L Potassium (3.6-5.0) mmol/L Chloride (98-107) mmol/L Carbon Dioxide (21-33) mmol/L Anion Gap (10-20) BUN (7-21) mg/dL Creatinine (0.8-1.5) mg/dl Est GFR ( Amer) Est GFR (Non-Af Amer) Random Glucose (70-110) mg/dL Hemoglobin A1c (4.2-6.5) % Calcium (8.4-10.5) mg/dL Phosphorus (2.5-4.5) mg/dL Magnesium (1.7-2.2) mg/dL Total Bilirubin (0.2-1.3) mg/dL AST (17-59) U/L ALT (7-56) U/L Alkaline Phosphatase (38-126) U/L Troponin I 0.02 ng/mL Total Protein (5.8-8.3) g/dL Albumin (3.0-4.8) g/dL Globulin gm/dL Albumin/Globulin Ratio (1.1-1.8) LDL Cholesterol Direct 34 (0-129) mg/dL Procalcitonin (0.19-0.49) NG/ML Blood Type Antibody Screen BBK History Checked Laboratory Results - last 24 hr 09/01/18 09/01/18 09/01/18 11:20 11:20 11:20 WBC 9.9 RBC 3.09 L Hgb 10.1 L Hct 31.0 L MCV 100.3 MCH 32.7 MCHC 32.6 RDW 15.1 H Plt Count 282 MPV 10.2 Gran % 67.8 Lymph % (Auto) 19.5 L [place] % (Auto) 7.6 H Eos % (Auto) 4.7 Baso % (Auto) 0.4 Gran # 6.70 H Lymph # (Auto) 1.9 [place] # (Auto) 0.8 H Eos # (Auto) 0.5 Baso # (Auto) 0.04 PT INR APTT Sodium Potassium Chloride Carbon Dioxide Anion Gap BUN Creatinine Est GFR ( Amer) Est GFR (Non-Af Amer) Random Glucose Hemoglobin A1c 5.8 Calcium Phosphorus Magnesium Total Bilirubin AST ALT Alkaline Phosphatase Troponin I 0.02 Total Protein Albumin Globulin Albumin/Globulin Ratio LDL Cholesterol Direct 34 Procalcitonin Blood Type Antibody Screen BBK History Checked 09/01/18 09/01/18 09/02/18 11:40 13:50 06:40 WBC 10.1 RBC 3.14 L Hgb 10.2 L Hct 31.2 L MCV 99.4 MCH 32.5 MCHC 32.7 RDW 15.5 H Plt Count 286 MPV 10.0 Gran % 67.4 Lymph % (Auto) 19.4 L [place] % (Auto) 9.4 H Eos % (Auto) 3.6 Baso % (Auto) 0.2 Gran # 6.84 H Lymph # (Auto) 2.0 [place] # (Auto) 1.0 H Eos # (Auto) 0.4 Baso # (Auto) 0.02 PT INR APTT Sodium Potassium Chloride Carbon Dioxide Anion Gap BUN Creatinine Est GFR ( Amer) Est GFR (Non-Af Amer) Random Glucose Hemoglobin A1c Calcium Phosphorus Magnesium Total Bilirubin AST ALT Alkaline Phosphatase Troponin I Total Protein Albumin Globulin Albumin/Globulin Ratio LDL Cholesterol Direct Procalcitonin 0.12 L Blood Type A NEGATIVE Antibody Screen Negative BBK History Checked Patient has bt 09/02/18 09/02/18 06:40 06:40 WBC RBC Hgb Hct MCV MCH MCHC RDW Plt Count MPV Gran % Lymph % (Auto) [place] % (Auto) Eos % (Auto) Baso % (Auto) Gran # Lymph # (Auto) [place] # (Auto) Eos # (Auto) Baso # (Auto) PT 18.8 H INR 1.62 APTT 33.3 Sodium 140 Potassium 3.9 Chloride 106 Carbon Dioxide 30 Anion Gap 8 L BUN 15 Creatinine 1.2 Est GFR ( Amer) > 60 Est GFR (Non-Af Amer) 57 Random Glucose 98 Hemoglobin A1c Calcium 8.0 L Phosphorus 3.0 Magnesium 1.8 Total Bilirubin 0.6 AST 42 ALT 42 Alkaline Phosphatase 103 Troponin I Total Protein 6.0 Albumin 2.8 L Globulin 3.3 Albumin/Globulin Ratio 0.9 L LDL Cholesterol Direct Procalcitonin Blood Type Antibody Screen BBK History Checked Radiology Impressions: Radiology Impressions Chest X-Ray 09/01/18 11:00 IMPRESSION: Evolving right lower lobe infiltrate. Cardiomegaly/new pulmonary vascular congestion. Chest X-Ray 09/02/18 05:00 IMPRESSION: Vascular congestion with patchy infiltrate in the right lower lobe EKG/Cardiology Studies: Cardiology / EKG Studies 09/01/18 11:11 ELECTROCARDIOGRAM Stat Comment: Reason For Exam: altered mental status Fingerstick Blood Sugar Results: 106 Critical Care Progress Note - Nutrition Nutrition: Nutrition Category Date Time Status Regular Diet [DIET] Diets 09/01/18 Lunch Ordered Assessment/Plan - Assessment and Plan (Free Text) Assessment: 88 y/o male with PMHx of A. Fib on coumadin, pacemaker, aortic insufficiency, CKD, s/p lap converted to open cholecystectomy POD#5 who had reported episode of unresponsiveness this morning. Neurologically intact, currently in ICU for monitoring. Will transfer to tele today. Neuro: - Head CT w/o contrast on 09/01/17 was negative - Neurohospitalist Dr. Palomares - allow permissive HTN for 24 hours - EEG ordered to r/o seizure -AAOx3, no focal deficits appreciated, moving extremities past midline. -Monitor neuro status. Cardio: -Lopressor held in light of rec for permissive HTN -RRR, slightly hypertensive, no signs of HD compromise -Maintain MAP>65. -Monitor for S/S, HD compromise. Pulm: -No signs of respiratory distress. CTA B/L -Maintain O2 saturation>92%. -O2 NC PRN -CXR 09/01/18: evolving R lower lobe infiltrate -start home lasix 40mg -Elevate bed to 30 degrees GI: s/p open parker - 09/01/18 CT abd/pelvis with IV contrast: Postoperative changes in the right upper quadrant consist of air/fluid in the gallbladder fossa. Adjacent drain identified. Trace free air noted. Postoperative changes anterior abdominal wall likely hematoma. This appears subjacent to surgical clips. Redemonstration of bladder wall mass, Small bilateral pleural effusions. Dependent atelectatic changes/infiltrates. Right middle lobe infiltrate. - General surgery on board - Tolerating diet well. Endocrinology: - glucose controlled - Maintain euglycemia. Heme/Onc: - hx of afib, increased warfarin to 5mg for subtherapeutic INR - daily INR - H/H stable at 10.1, will monitor - DVT ppx with warfarin ID: - Afebrile, no leukocytosis - Follow up BCx, UCx, Procalcitonin - Vanc, Zosyn, day 2 - CXR today shows vascular congestion with patchy infiltrate in the right lower lobe - Monitor for signs and symptoms of infection. Dispo: Will transfer to tele today. Patient seen, case reviewed and plan approved by Dr. Rasheed. <Paramjit Rasheed - Last Filed: 09/02/18 13:27> CCU Objective - Vital Signs / Intake & Output Vital Signs (Last 4 hours): Vital Signs Temp Pulse Resp BP Pulse Ox 09/02/18 12:23 99.2 F 09/02/18 12:00 62 164/84 H 95 09/02/18 11:24 11 L 09/02/18 11:08 71 09/02/18 11:00 61 22 165/56 H 96 09/02/18 10:33 97.8 F 09/02/18 10:20 62 20 09/02/18 10:10 60 19 09/02/18 10:00 60 20 152/48 H 09/02/18 09:50 63 15 09/02/18 09:40 64 16 09/02/18 09:30 64 22 Intake and Output (Last 8hrs): Intake & Output 09/01/18 09/02/18 09/02/18 22:59 06:59 14:59 Intake Total 550 1500 Output Total 320 855 Balance 230 645 Weight 173 lb Intake: IV 550 1400 IVF 300 1200 IVPB 250 200 Oral 100 Output: Drainage 20 5 Right Abdomen 20 5 Urine 300 850 Condom 300 850 Other: # Bowel Movements 1 - Medications Active Medications: Active Medications Generic Name Dose Route Start Last Admin Trade Name Freq PRN Reason Stop Dose Admin Acetaminophen 650 mg 09/01/18 13:09 Tylenol 325mg Tab PO Q6H PRN Fever >100.4 F Aspirin 81 mg 09/01/18 13:15 09/02/18 10:01 Aspirin Chewable PO 81 mg DAILY SURI Administration Dextrose 0 ml 09/01/18 13:09 Dextrose 50% Inj IV STAT PRN Hypoglycemia Protocol Protocol Furosemide 40 mg 09/02/18 10:00 09/02/18 10:00 Lasix PO 40 mg DAILY SURI Administration Dextrose 1,000 mls @ 0 mls/hr 09/01/18 13:09 Dextrose 5% In Water 1000 Ml IV .Q0M PRN Hypoglycemia Protocol Protocol Per Protocol Vancomycin HCl 1 gm in 250 mls @ 167 mls/hr 09/02/18 10:00 09/02/18 10:01 Vancomycin 1gm IVPB 167 mls/hr DAILY SURI Administration Protocol Piperacillin Sod/Tazobactam Sod 100 mls @ 25 mls/hr 09/01/18 22:00 09/02/18 05:31 Zosyn 3.375 In Ns 100ml IVPB 09/10/18 22:01 25 mls/hr Q8 S[facility] Administration Protocol Insulin Human Regular 0 units 09/01/18 16:30 09/02/18 08:03 Humulin R Med SC Not Given ACHS [facility] Protocol Metoprolol Tartrate 25 mg 09/01/18 18:00 Lopressor PO BID SURI Tramadol HCl 50 mg 09/01/18 13:09 Ultram PO TID PRN Pain, moderate (4-7) Warfarin Sodium 5 mg 09/02/18 09:37 Coumadin PO 1800 SURI - Patient Studies Lab Studies: Microbiology Studies 09/01/18 11:20 Blood Culture - Preliminary Blood NO GROWTH AFTER 24 HOURS 09/01/18 11:45 Blood Culture - Preliminary Blood NO GROWTH AFTER 24 HOURS Lab Studies 09/02/18 09/02/18 09/02/18 Range/Units 06:40 06:40 06:40 WBC 10.1 (4.5-11.0) 10^3/uL RBC 3.14 L (3.5-6.1) 10^6/uL Hgb 10.2 L (14.0-18.0) g/dL Hct 31.2 L (42.0-52.0) % MCV 99.4 (80.0-105.0) fl MCH 32.5 (25.0-35.0) pg MCHC 32.7 (31.0-37.0) g/dl RDW 15.5 H (11.5-14.5) % Plt Count 286 (120.0-450.0) 10^3/uL MPV 10.0 (7.0-11.0) fl Gran % 67.4 (50.0-68.0) % Lymph % (Auto) 19.4 L (22.0-35.0) % [place] % (Auto) 9.4 H (1.0-6.0) % Eos % (Auto) 3.6 (1.5-5.0) % Baso % (Auto) 0.2 (0.0-3.0) % Gran # 6.84 H (1.4-6.5) Lymph # (Auto) 2.0 (1.2-3.4) [place] # (Auto) 1.0 H (0.1-0.6) Eos # (Auto) 0.4 (0.0-0.7) Baso # (Auto) 0.02 (0.0-2.0) K/mm3 PT 18.8 H (9.4-12.5) SECONDS INR 1.62 APTT 33.3 (25.1-36.5) Seconds Sodium 140 (132-148) mmol/L Potassium 3.9 (3.6-5.0) mmol/L Chloride 106 (98-107) mmol/L Carbon Dioxide 30 (21-33) mmol/L Anion Gap 8 L (10-20) BUN 15 (7-21) mg/dL Creatinine 1.2 (0.8-1.5) mg/dl Est GFR ( Amer) > 60 Est GFR (Non-Af Amer) 57 Random Glucose 98 (70-110) mg/dL Hemoglobin A1c (4.2-6.5) % Calcium 8.0 L (8.4-10.5) mg/dL Phosphorus 3.0 (2.5-4.5) mg/dL Magnesium 1.8 (1.7-2.2) mg/dL Total Bilirubin 0.6 (0.2-1.3) mg/dL AST 42 (17-59) U/L ALT 42 (7-56) U/L Alkaline Phosphatase 103 (38-126) U/L Total Protein 6.0 (5.8-8.3) g/dL Albumin 2.8 L (3.0-4.8) g/dL Globulin 3.3 gm/dL Albumin/Globulin Ratio 0.9 L (1.1-1.8) Procalcitonin (0.19-0.49) NG/ML 09/01/18 09/01/18 Range/Units 13:50 11:20 WBC (4.5-11.0) 10^3/uL RBC (3.5-6.1) 10^6/uL Hgb (14.0-18.0) g/dL Hct (42.0-52.0) % MCV (80.0-105.0) fl MCH (25.0-35.0) pg MCHC (31.0-37.0) g/dl RDW (11.5-14.5) % Plt Count (120.0-450.0) 10^3/uL MPV (7.0-11.0) fl Gran % (50.0-68.0) % Lymph % (Auto) (22.0-35.0) % [place] % (Auto) (1.0-6.0) % Eos % (Auto) (1.5-5.0) % Baso % (Auto) (0.0-3.0) % Gran # (1.4-6.5) Lymph # (Auto) (1.2-3.4) [place] # (Auto) (0.1-0.6) Eos # (Auto) (0.0-0.7) Baso # (Auto) (0.0-2.0) K/mm3 PT (9.4-12.5) SECONDS INR APTT (25.1-36.5) Seconds Sodium (132-148) mmol/L Potassium (3.6-5.0) mmol/L Chloride (98-107) mmol/L Carbon Dioxide (21-33) mmol/L Anion Gap (10-20) BUN (7-21) mg/dL Creatinine (0.8-1.5) mg/dl Est GFR ( Amer) Est GFR (Non-Af Amer) Random Glucose (70-110) mg/dL Hemoglobin A1c 5.8 (4.2-6.5) % Calcium (8.4-10.5) mg/dL Phosphorus (2.5-4.5) mg/dL Magnesium (1.7-2.2) mg/dL Total Bilirubin (0.2-1.3) mg/dL AST (17-59) U/L ALT (7-56) U/L Alkaline Phosphatase (38-126) U/L Total Protein (5.8-8.3) g/dL Albumin (3.0-4.8) g/dL Globulin gm/dL Albumin/Globulin Ratio (1.1-1.8) Procalcitonin 0.12 L (0.19-0.49) NG/ML Laboratory Results - last 24 hr 09/01/18 09/01/18 09/02/18 11:20 13:50 06:40 WBC 10.1 RBC 3.14 L Hgb 10.2 L Hct 31.2 L MCV 99.4 MCH 32.5 MCHC 32.7 RDW 15.5 H Plt Count 286 MPV 10.0 Gran % 67.4 Lymph % (Auto) 19.4 L [place] % (Auto) 9.4 H Eos % (Auto) 3.6 Baso % (Auto) 0.2 Gran # 6.84 H Lymph # (Auto) 2.0 [place] # (Auto) 1.0 H Eos # (Auto) 0.4 Baso # (Auto) 0.02 PT INR APTT Sodium Potassium Chloride Carbon Dioxide Anion Gap BUN Creatinine Est GFR ( Amer) Est GFR (Non-Af Amer) Random Glucose Hemoglobin A1c 5.8 Calcium Phosphorus Magnesium Total Bilirubin AST ALT Alkaline Phosphatase Total Protein Albumin Globulin Albumin/Globulin Ratio Procalcitonin 0.12 L 09/02/18 09/02/18 06:40 06:40 WBC RBC Hgb Hct MCV MCH MCHC RDW Plt Count MPV Gran % Lymph % (Auto) [place] % (Auto) Eos % (Auto) Baso % (Auto) Gran # Lymph # (Auto) [place] # (Auto) Eos # (Auto) Baso # (Auto) PT 18.8 H INR 1.62 APTT 33.3 Sodium 140 Potassium 3.9 Chloride 106 Carbon Dioxide 30 Anion Gap 8 L BUN 15 Creatinine 1.2 Est GFR ( Amer) > 60 Est GFR (Non-Af Amer) 57 Random Glucose 98 Hemoglobin A1c Calcium 8.0 L Phosphorus 3.0 Magnesium 1.8 Total Bilirubin 0.6 AST 42 ALT 42 Alkaline Phosphatase 103 Total Protein 6.0 Albumin 2.8 L Globulin 3.3 Albumin/Globulin Ratio 0.9 L Procalcitonin Radiology Impressions: Radiology Impressions Chest X-Ray 09/02/18 05:00 IMPRESSION: Vascular congestion with patchy infiltrate in the right lower lobe Critical Care Progress Note - Nutrition Nutrition: Nutrition Category Date Time Status Regular Diet [DIET] Diets 09/01/18 Lunch Ordered Assessment/Plan - Assessment and Plan (Free Text) Assessment: Patient seen and examined on rounds, with resident, agree with note with following additions/exceptions: Patient is 88yo male with PMHx of A. Stephani on coumadin, pacemaker, aortic insufficiency, CKD, s/p lap converted to open cholecystectomy who had reported episode of unresponsiveness this morning. 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
--- NOTE | 2018-09-02 13:24 | CP.PCM.CON ---
<Adriano Jc - Last Filed: 09/02/18 13:21> History of Present Illness - History of Present Illness History of Present Illness: Infectious disease consult note: 88 y/o male with PMHx of Eleanor Styles on coumadin, pacemaker, aortic insufficiency, CKD, s/p lap converted to open cholecystectomy sent to the TCU for deconditioning and weakness. Patient had a USED CAR RENOVATOR called for unresposivness and was transferred to the ED at the time. Patient mental status soon returned to baseline. ID was consulted for unresponsiveness and abx duration. Today the patient is back to his baseline, answering questions appropriately. No complaints. Denies any fever, chills, sob, cp, abd pain, n/v/d, urinary changes. 12 Point ROS performed and neg other than stated above. PMHx: Nish on coumadin, CKD, pacemaker, aortic insufficiency PSHx: Cholecystectomy Meds: as per EMR Allergies: NKA FHx: Denies Review of Systems - Review of Systems All systems: reviewed and no additional remarkable complaints except Past Patient History - Infectious Disease Hx of Infectious Diseases: None - Tetanus Immunizations Tetanus Immunization: Unknown - Past Social History Smoking Status: Former Smoker - CARDIAC Hx Cardiac Disorders: Yes Hx Congestive Heart Failure: Yes Hx Hypertension: Yes - PULMONARY Hx Respiratory Disorders: No - NEUROLOGICAL Hx Neurological Disorder: No - HEENT Hx HEENT Problems: No - RENAL Hx Chronic Kidney Disease: No - ENDOCRINE/METABOLIC Hx Hypothyroidism: Yes - HEMATOLOGICAL/ONCOLOGICAL Hx Blood Transfusions: No Hx Blood Transfusion Reaction: (NA) - INTEGUMENTARY Hx Dermatological Problems: No - MUSCULOSKELETAL/RHEUMATOLOGICAL Hx Falls: Yes - GASTROINTESTINAL Hx Gastrointestinal Disorders: No - GENITOURINARY/GYNECOLOGICAL 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) - PSYCHIATRIC Hx Psychophysiologic Disorder: No Hx Substance Use: No - SURGICAL HISTORY Hx Cholecystectomy: Yes Hx Orthopedic Surgery: Yes (r knee sx) - ANESTHESIA Hx Anesthesia: Yes Hx Anesthesia Reactions: Yes (bradycardia, asystole) Hx Malignant Hyperthermia: No Meds Allergies/Adverse Reactions: Allergies Allergy/AdvReac Type Severity Reaction Status Date / Time No Known Allergies Allergy Verified 08/30/18 20:29 - Medications Medications: Current Medications Acetaminophen (Tylenol 325mg Tab) 650 mg PO Q6H PRN PRN Reason: Fever >100.4 F Aspirin (Aspirin Chewable) 81 mg PO DAILY [facility] Last Admin: 09/02/18 10:01 Dose: 81 mg Dextrose (Dextrose 50% Inj) 0 ml IV STAT PRN; Protocol PRN Reason: Hypoglycemia Protocol Furosemide (Lasix) 40 mg PO DAILY [facility] Last Admin: 09/02/18 10:00 Dose: 40 mg Dextrose (Dextrose 5% In Water 1000 Ml) 1,000 mls @ 0 mls/hr IV .Q0M PRN; Wood col PRN Reason: Hypoglycemia Protocol Vancomycin HCl (Vancomycin 1gm) 1 gm in 250 mls @ 167 mls/hr IVPB DAILY [facility]; Protocol Last Admin: 09/02/18 10:01 Dose: 167 mls/hr Piperacillin Sod/Tazobactam Sod (Zosyn 3.375 In Ns 100ml) 100 mls @ 25 mls/hr IVPB Q8 [facility]; Protocol Stop: 09/10/18 22:01 Last Admin: 09/02/18 05:31 Dose: 25 mls/hr Insulin Human Regular (Humulin R Med) 0 units SC ACHS [facility]; Protocol Last Admin: 09/02/18 08:03 Dose: Not Given Metoprolol Tartrate (Lopressor) 25 mg PO BID [facility] Tramadol HCl (Ultram) 50 mg PO TID PRN PRN Reason: Pain, moderate (4-7) Warfarin Sodium (Coumadin) 5 mg PO 1800 [facility] Physical Exam - Constitutional Appears: No Acute Distress - Head Exam Head Exam: ATRAUMATIC, NORMOCEPHALIC - Eye Exam Eye Exam: EOMI, PERRL Pupil Exam: NORMAL ACCOMODATION - ENT Exam ENT Exam: Mucous Membranes Moist - Respiratory Exam Respiratory Exam: Clear to Auscultation Bilateral Additional comments: no r/r/w - Cardiovascular Exam Cardiovascular Exam: REGULAR RHYTHM, +S1, +S2 - GI/Abdominal Exam GI & Abdominal Exam: Normal Bowel Sounds, Soft Additional comments: drain in place. Well healing wound with clementina in place - Extremities Exam Extremities exam: Negative for: calf tenderness, pedal edema - Neurological Exam Neurological exam: Alert, CN II-XII Intact, Oriented x3 - Psychiatric Exam Psychiatric exam: Normal Mood - Skin Skin Exam: Dry, Warm Results - Vital Signs Recent Vital Signs: Last Vital Signs Temp 99.2 F 09/02/18 12:23 Pulse 62 09/02/18 12:00 Resp 11 L 09/02/18 11:24 BP 164/84 H 09/02/18 12:00 Pulse Ox 95 09/02/18 12:00 - Labs Result Diagrams: 09/02/18 06:40 09/02/18 06:40 Labs: Laboratory Results - last 24 hr 09/01/18 09/01/18 09/02/18 11:20 13:50 06:40 WBC 10.1 RBC 3.14 L Hgb 10.2 L Hct 31.2 L MCV 99.4 MCH 32.5 MCHC 32.7 RDW 15.5 H Plt Count 286 MPV 10.0 Gran % 67.4 Lymph % (Auto) 19.4 L [place] % (Auto) 9.4 H Eos % (Auto) 3.6 Baso % (Auto) 0.2 Gran # 6.84 H Lymph # (Auto) 2.0 [place] # (Auto) 1.0 H Eos # (Auto) 0.4 Baso # (Auto) 0.02 PT INR APTT Sodium Potassium Chloride Carbon Dioxide Anion Gap BUN Creatinine Est GFR ( Amer) Est GFR (Non-Af Amer) Random Glucose Hemoglobin A1c 5.8 Calcium Phosphorus Magnesium Total Bilirubin AST ALT Alkaline Phosphatase Total Protein Albumin Globulin Albumin/Globulin Ratio Procalcitonin 0.12 L 09/02/18 09/02/18 06:40 06:40 WBC RBC Hgb Hct MCV MCH MCHC RDW Plt Count MPV Gran % Lymph % (Auto) [place] % (Auto) Eos % (Auto) Baso % (Auto) Gran # Lymph # (Auto) [place] # (Auto) Eos # (Auto) Baso # (Auto) PT 18.8 H INR 1.62 APTT 33.3 Sodium 140 Potassium 3.9 Chloride 106 Carbon Dioxide 30 Anion Gap 8 L BUN 15 Creatinine 1.2 Est GFR ( Amer) > 60 Est GFR (Non-Af Amer) 57 Random Glucose 98 Hemoglobin A1c Calcium 8.0 L Phosphorus 3.0 Magnesium 1.8 Total Bilirubin 0.6 AST 42 ALT 42 Alkaline Phosphatase 103 Total Protein 6.0 Albumin 2.8 L Globulin 3.3 Albumin/Globulin Ratio 0.9 L Procalcitonin Assessment & Plan - Assessment and Plan (Free Text) Assessment: 88 y/o male with PMHx of A. Fib on coumadin, pacemaker, aortic insufficiency, CKD, s/p lap converted to open cholecystectomy presents with USED CAR RENOVATOR and episode of unresponsiveness while in the TCU. Found to have a R middle lobe infiltrate / hospital acquired pneumonia. - CTAP showed R middle lobe pneumonia - Cont Vanc and Zosyn - F/u blood, urine and sputum culture - Procal was neg - will repeat now - F/u MRSA nares - Cont to monitor for any changes Case and plan was reviewed and discussed with Dr Kennedy. <Valentin Kennedy S - Last Filed: 09/02/18 17:51> Meds - Medications Medications: Current Medications Acetaminophen (Tylenol 325mg Tab) 650 mg PO Q6H PRN PRN Reason: Fever >100.4 F Aspirin (Aspirin Chewable) 81 mg PO DAILY [facility] Last Admin: 09/02/18 10:01 Dose: 81 mg Dextrose (Dextrose 50% Inj) 0 ml IV STAT PRN; Protocol PRN Reason: Hypoglycemia Protocol Furosemide (Lasix) 40 mg PO DAILY [facility] Last Admin: 09/02/18 10:00 Dose: 40 mg Dextrose (Dextrose 5% In Water 1000 Ml) 1,000 mls @ 0 mls/hr IV .Q0M PRN; Protocol PRN Reason: Hypoglycemia Protocol Vancomycin HCl (Vancomycin 1gm) 1 gm in 250 mls @ 167 mls/hr IVPB DAILY [facility]; Protocol Last Admin: 09/02/18 10:01 Dose: 167 mls/hr Piperacillin Sod/Tazobactam Sod (Zosyn 3.375 In Ns 100ml) 100 mls @ 25 mls/hr IVPB Q8 [facility]; Protocol Stop: 09/10/18 22:01 Last Admin: 09/02/18 14:15 Dose: 25 mls/hr Insulin Human Regular (Humulin R Med) 0 units SC ACHS [facility]; Protocol Last Admin: 09/02/18 16:48 Dose: Not Given Metoprolol Tartrate (Lopressor) 25 mg PO BID [facility] Tramadol HCl (Ultram) 50 mg PO TID PRN PRN Reason: Pain, moderate (4-7) Warfarin Sodium (Coumadin) 5 mg PO 1800 [facility] Last Admin: 09/02/18 17:33 Dose: 5 mg Results - Vital Signs Recent Vital Signs: Last Vital Signs Temp 98.6 F 09/02/18 16:48 Pulse 72 09/02/18 15:37 Resp 23 09/02/18 14:00 BP 156/67 H 09/02/18 14:00 Pulse Ox 96 09/02/18 14:00 - Labs Result Diagrams: 09/02/18 06:40 09/02/18 06:40 Labs: Laboratory Results - last 24 hr 09/01/18 09/01/18 09/01/18 13:50 16:33 22:15 WBC RBC Hgb Hct MCV MCH MCHC RDW Plt Count MPV Gran % Lymph % (Auto) [place] % (Auto) Eos % (Auto) Baso % (Auto) Gran # Lymph # (Auto) [place] # (Auto) Eos # (Auto) Baso # (Auto) PT INR APTT Sodium Potassium Chloride Carbon Dioxide Anion Gap BUN Creatinine Est GFR ( Amer) Est GFR (Non-Af Amer) POC Glucose (mg/dL) 107 106 Random Glucose Calcium Phosphorus Magnesium Total Bilirubin AST ALT Alkaline Phosphatase Total Protein Albumin Globulin Albumin/Globulin Ratio Procalcitonin 0.12 L 09/02/18 09/02/18 09/02/18 06:40 06:40 06:40 WBC 10.1 RBC 3.14 L Hgb 10.2 L Hct 31.2 L MCV 99.4 MCH 32.5 MCHC 32.7 RDW 15.5 H Plt Count 286 MPV 10.0 Gran % 67.4 Lymph % (Auto) 19.4 L [place] % (Auto) 9.4 H Eos % (Auto) 3.6 Baso % (Auto) 0.2 Gran # 6.84 H Lymph # (Auto) 2.0 [place] # (Auto) 1.0 H Eos # (Auto) 0.4 Baso # (Auto) 0.02 PT 18.8 H INR 1.62 APTT 33.3 Sodium 140 Potassium 3.9 Chloride 106 Carbon Dioxide 30 Anion Gap 8 L BUN 15 Creatinine 1.2 Est GFR ( Amer) > 60 Est GFR (Non-Af Amer) 57 POC Glucose (mg/dL) Random Glucose 98 Calcium 8.0 L Phosphorus 3.0 Magnesium 1.8 Total Bilirubin 0.6 AST 42 ALT 42 Alkaline Phosphatase 103 Total Protein 6.0 Albumin 2.8 L Globulin 3.3 Albumin/Globulin Ratio 0.9 L Procalcitonin 09/02/18 09/02/18 09/02/18 07:14 11:08 16:18 WBC RBC Hgb Hct MCV MCH MCHC RDW Plt Count MPV Gran % Lymph % (Auto) [place] % (Auto) Eos % (Auto) Baso % (Auto) Gran # Lymph # (Auto) [place] # (Auto) Eos # (Auto) Baso # (Auto) PT INR APTT Sodium Potassium Chloride Carbon Dioxide Anion Gap BUN Creatinine Est GFR ( Amer) Est GFR (Non-Af Amer) POC Glucose (mg/dL) 106 109 111 H Random Glucose Calcium Phosphorus Magnesium Total Bilirubin AST ALT Alkaline Phosphatase Total Protein Albumin Globulin Albumin/Globulin Ratio Procalcitonin Assessment & Plan - Assessment and Plan (Free Text) Assessment: Infectious diseases Attending Physician Attestation Patient seen and examined, discussed with medical insurance claims processor. I have reviewed the patient's history of present illness, past medical, social, personal and family histories, pertinent physical exam findings, course so far in this hospital admission, pertinent laboratory and imaging results. I agree with the above findings, assessment and plan. In addition, continue Vancomycin andf Zosyn for sepsis from [facility]. Follow up cultures and monitor clinically. Patient is S/P cholecystectomy for acute gangrenous cholecystitis.
[2018-09-03] MEDS: Insulin Reg-MEDIUM-Coverage SC SCH ×5 (03:56→22:04)
[2018-09-03 06:49] LABS: BASO # 0.03 K/mm3 (0.0-2.0); BASO % 0.3 % (0.0-3.0); EOS # 0.3 (0.0-0.7); EOS % 2.8 % (1.5-5.0); GRAN # 7.7 (1.4-6.5); HEMOGLOBIN 10.4 g/dL (14.0-18.0); LYMPH # 1.7 (1.2-3.4); LYMPH % 16.1 % (22.0-35.0); MEAN CELL VOLUME 98.5 fl (80.0-105.0); MEAN CORPUSCULAR HEMOGLOBIN 32.2 pg (25.0-35.0); MEAN CORPUSCULAR HGB CONC 32.7 g/dl (31.0-37.0); MEAN PLATELET VOLUME 10.3 fl (7.0-11.0); MONO # 1.1 (0.1-0.6); MONO % 9.8 % (1.0-6.0); RBC 3.23 10^6/uL (3.5-6.1); RED CELL DISTRIBUTION WIDTH 15.3 % (11.5-14.5); WHITE BLOOD COUNT 10.8 10^3/uL (4.5-11.0)
[2018-09-03] MEDS: Piperacillin/Tazobact 3.375 gm 100 ML IVPB SCH ×3 (06:53→22:03)
[2018-09-03 07:03] LABS: INR 1.76; PROTHROMBIN TIME 20.5 SECONDS (9.4-12.5)
[2018-09-03 07:16] LABS: ALB/GLOB RATIO 0.9 (1.1-1.8); ALT/SGPT 36 U/L (7-56); AST/SGOT 50 U/L (17-59); BLOOD UREA NITROGEN 18 mg/dL (7-21); CALCIUM 8.3 mg/dL (8.4-10.5); GFR NON-AFRICAN AMERICAN 52
--- NOTE | 2018-09-03 08:52 | CP.PCM.PN ---
<Adriano Jc - Last Filed: 09/03/18 12:46> Subjective - Date & Time of Evaluation Date of Evaluation: 09/03/18 Time of Evaluation: 07:00 - Subjective Subjective: Infectious disease progress note: Pt seen and examined at bedside. No acute events overnight. Patient complains of mild abd pain but states that he is otherwise doing well. Denies any n/v/d. 12 Point ROS performed and neg other than stated above. Objective - Vital Signs/Intake and Output Vital Signs (last 24 hours): Temp Pulse Resp BP Pulse Ox 98.9 F 62 19 142/60 95 09/02/18 20:00 09/03/18 06:00 09/02/18 18:00 09/02/18 18:00 09/02/18 18:00 Intake and Output: 09/03/18 09/03/18 06:59 18:59 Intake Total 1950 Output Total 1510 Balance 440 - Medications Medications: Current Medications Acetaminophen (Tylenol 325mg Tab) 650 mg PO Q6H PRN PRN Reason: Fever >100.4 F Aspirin (Aspirin Chewable) 81 mg PO DAILY [facility] Last Admin: 09/02/18 10:01 Dose: 81 mg Dextrose (Dextrose 50% Inj) 0 ml IV STAT PRN; Protocol PRN Reason: Hypoglycemia Protocol Furosemide (Lasix) 40 mg PO DAILY [facility] Last Admin: 09/02/18 10:00 Dose: 40 mg Dextrose (Dextrose 5% In Water 1000 Ml) 1,000 mls @ 0 mls/hr IV .Q0M PRN; Protocol PRN Reason: Hypoglycemia Protocol Vancomycin HCl (Vancomycin 1gm) 1 gm in 250 mls @ 167 mls/hr IVPB DAILY [facility]; Protocol Last Admin: 09/02/18 10:01 Dose: 167 mls/hr Piperacillin Sod/Tazobactam Sod (Zosyn 3.375 In Ns 100ml) 100 mls @ 25 mls/hr IVPB Q8 [facility]; Protocol Stop: 09/10/18 22:01 Last Admin: 09/03/18 06:53 Dose: 25 mls/hr Insulin Human Regular (Humulin R Med) 0 units SC ACHS [facility]; Protocol Last Admin: 09/03/18 03:56 Dose: Not Given Metoprolol Tartrate (Lopressor) 25 mg PO BID [facility] Tramadol HCl (Ultram) 50 mg PO TID PRN PRN Reason: Pain, moderate (4-7) Warfarin Sodium (Coumadin) 5 mg PO 1800 [facility] Last Admin: 09/02/18 17:33 Dose: 5 mg - Labs Labs: 09/03/18 06:20 09/03/18 06:20 PT 20.5 SECONDS (9.4-12.5) H 09/03/18 06:20 INR 1.76 09/03/18 06:20 APTT 33.3 Seconds (25.1-36.5) 09/02/18 06:40 - Constitutional Appears: No Acute Distress - Head Exam Head Exam: ATRAUMATIC, NORMOCEPHALIC - Eye Exam Eye Exam: EOMI - ENT Exam ENT Exam: Mucous Membranes Moist - Respiratory Exam Respiratory Exam: Clear to Ausculation Bilateral. absent: Rales, Rhonchi, Wheezes - Cardiovascular Exam Cardiovascular Exam: REGULAR RHYTHM, +S1, +S2 - GI/Abdominal Exam GI & Abdominal Exam: Soft, Normal Bowel Sounds. absent: Tenderness Additional comments: Abdomen NTND, Julia from surgery in place - Extremities Exam Extremities Exam: absent: Calf Tenderness, Pedal Edema - Neurological Exam Neurological Exam: Alert, Awake. absent: Oriented x3 - Psychiatric Exam Psychiatric exam: Normal Mood - Skin Skin Exam: Dry, Warm Assessment and Plan - Assessment and Plan (Free Text) Assessment: 88 y/o male with PMHx of A. 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 Found to have a R middle lobe infiltrate / hospital acquired pneumonia. - CTAP showed R middle lobe pneumonia - Continue abx Vanc and Zosyn day 2 of 4 before descalating abx - F/u blood cx x 24hr neg - f/u urine and sputum culture - Procal was neg - will repeat now - F/u MRSA screen Case and plan was reviewed and discussed with Dr Kennedy. <Valentin Kennedy - Last Filed: 09/03/18 18:03> Objective - Vital Signs/Intake and Output Vital Signs (last 24 hours): Temp Pulse Resp BP Pulse Ox 98.9 F 62 19 116/42 L 95 09/02/18 20:00 09/03/18 06:00 09/02/18 18:00 09/03/18 10:41 09/02/18 18:00 Intake and Output: 09/03/18 09/03/18 06:59 18:59 Intake Total 1950 Output Total 1510 Balance 440 - Medications Medications: Current Medications Acetaminophen (Tylenol 325mg Tab) 650 mg PO Q6H PRN PRN Reason: Fever >100.4 F Aspirin (Aspirin Chewable) 81 mg PO DAILY [facility] Last Admin: 09/03/18 10:44 Dose: 81 mg Dextrose (Dextrose 50% Inj) 0 ml IV STAT PRN; Protocol PRN Reason: Hypoglycemia Protocol Furosemide (Lasix) 40 mg PO DAILY [facility] Last Admin: 09/03/18 10:41 Dose: 40 mg Dextrose (Dextrose 5% In Water 1000 Ml) 1,000 mls @ 0 mls/hr IV .Q0M PRN; Protocol PRN Reason: Hypoglycemia Protocol Vancomycin HCl (Vancomycin 1gm) 1 gm in 250 mls @ 167 mls/hr IVPB DAILY [facility]; Protocol Last Admin: 09/03/18 10:41 Dose: 167 mls/hr Piperacillin Sod/Tazobactam Sod (Zosyn 3.375 In Ns 100ml) 100 mls @ 25 mls/hr IVPB Q8 [facility]; Protocol Stop: 09/10/18 22:01 Last Admin: 09/03/18 15:32 Dose: 25 mls/hr Insulin Human Regular (Humulin R Med) 0 units SC ACHS [facility]; Protocol Last Admin: 09/03/18 12:00 Dose: Not Given Metoprolol Tartrate (Lopressor) 25 mg PO BID [facility] Tramadol HCl (Ultram) 50 mg PO TID PRN PRN Reason: Pain, moderate (4-7) Warfarin Sodium (Coumadin) 5 mg PO 1800 [facility] Last Admin: 09/02/18 17:33 Dose: 5 mg - Labs Labs: 09/03/18 06:20 09/03/18 06:20 PT 20.5 SECONDS (9.4-12.5) H 09/03/18 06:20 INR 1.76 09/03/18 06:20 APTT 33.3 Seconds (25.1-36.5) 09/02/18 06:40 Assessment and Plan - Assessment and Plan (Free Text) Assessment: Infectious diseases Attending Physician Attestation Patient seen and examined, discussed with diagnostic medical sonographer. I have reviewed the patient's history of present illness, past medical, social, personal and family histories, pertinent physical exam findings, course so far in this hospital admission, pertinent laboratory and imaging results. I agree with the above findings, assessment and plan. In addition,complete short course of Zosyn for [facility] HCAP with sepsis. Patient is clinically improving.
--- NOTE | 2018-09-03 09:36 | PCM.EEG ---
Electroencephalogram Report - Electroencephalogram Report Procedure Date: 09/01/18 Medication: ASA, metropolol, warfarin Interpretation: Technical Information: This was a 16 -channel EEG, 1-channel EKG routine EEG performed using an [employer] machine. Electrodes were applied using the 10/20 international placement system. Start; 17;33 End; 18;24 Total 51 min Clinical Information: seizures. . During resting wakefulness there was a symmetric posterior dominant rhythm at 8.5-9.5 Hz, 30-50 uV, which was reactive to eye opening and closing. Drowsiness (17;44) was associated with fragmentation of the posterior dominant rhythm and with slow roving eye movements. Hyperventilation was not performed. Photic stimulation was performed and there were no changes on the record. Focal abnormality; none ECG was associated with a normal sinus rhythm. Impression: Impression: This is a normal awake and drowsy electroencephalogram.
[2018-09-03] MEDS: Vancomycin 1gm in NS 250ml 1 GM/250 ML BAG IVPB SCH (10:41)
--- NOTE | 2018-09-03 11:55 | PN ---
DATE: 09/03/2018 SUBJECTIVE: I saw him in the intensive care unit, bed 7. He is alert, slept well, has little bit of an appetite, some abdominal pain, most overall he is improved, he was unresponsive the other day. He is doing much better. MEDICATIONS: He is on aspirin, Coumadin, dextrose, insulin, Lasix, Lopressor, Tylenol, Ultram, vancomycin IV, and Zosyn IV. PHYSICAL EXAMINATION: VITAL SIGNS: He has 98.9 temperature, 62 pulse, 142/60 blood pressure, 19 respiratory rate, 95% O2 sat. HEAD: Atraumatic, normocephalic. GENERAL: He is alert and talking to me very calm, back to his old self. HEART: Regular rate. LUNGS: Decreased breath sounds, but clear. ABDOMEN: Soft. Positive bowel sounds. He has multiple clementina in his abdomen at which the surgical pupils started removing, some of them falling off. He is definitely improving on his belly. EXTREMITIES: No edema. LABORATORY DATA: He has 10.8 white count, 10.4 hemoglobin, 31.8 hematocrit with 297 platelets. INR is 1.76, still going up on the Coumadin. He has 139 sodium, potassium 3.6, BUN is 80, creatinine 1.3, GFR is 52, sugar is 102, calcium is 8.3, total bili is 0.7. AST is 50, ALT is 36, alk phos 111, total protein 6.5. Procalcitonin is 0.13. ASSESSMENT AND PLAN: He is being seen by Infectious Disease, the legal services manager, and Surgery. Multiple problems for this young man status post laparoscopic converted to open cholecystectomy. He had a rapid response and responsive right middle lobe infiltrates. We will continue with intravenous antibiotics. Hope, we will get him back to the transitional care unit again when he gets out of the intensive care unit back to transitional care unit with physical therapy, more treatment before he goes home. Dieter Griggs DO [facility]
--- NOTE | 2018-09-03 14:28 | CP.PCM.APN ---
Subjective - Date & Time of Evaluation Date of Evaluation: 09/03/18 Time of Evaluation: 13:30 - Subjective Subjective: Patient seen and examined , sitting up in chair, appeared comfortable, denied shortness of breath, denied chest pain, denied dizziness. Review of Systems - Constitutional Constitutional: As Per HPI - Cardiovascular Cardiovascular: As Per HPI - Respiratory Respiratory: As Per HPI - Gastrointestinal Gastrointestinal: As Per HPI - Genitourinary Genitourinary: As Per HPI - Integumentary Integumentary: As Per HPI - Neurological Neurological: As Per HPI - Endocrine Endocrine: As Per HPI - Hematologic/Lymphatic Hematologic: As Per HPI Objective - Vital Signs/Intake and Output Vital Signs (last 24 hours): Temp Pulse Resp BP Pulse Ox 98.9 F 62 19 116/42 L 95 09/02/18 20:00 09/03/18 06:00 09/02/18 18:00 09/03/18 10:41 09/02/18 18:00 Intake and Output: 09/03/18 09/03/18 06:59 18:59 Intake Total 1950 Output Total 1510 Balance 440 - Medications Medications: Current Medications Acetaminophen (Tylenol 325mg Tab) 650 mg PO Q6H PRN PRN Reason: Fever >100.4 F Aspirin (Aspirin Chewable) 81 mg PO DAILY [facility] Last Admin: 09/03/18 10:44 Dose: 81 mg Dextrose (Dextrose 50% Inj) 0 ml IV STAT PRN; Protocol PRN Reason: Hypoglycemia Protocol Furosemide (Lasix) 40 mg PO DAILY [facility] Last Admin: 09/03/18 10:41 Dose: 40 mg Dextrose (Dextrose 5% In Water 1000 Ml) 1,000 mls @ 0 mls/hr IV .Q0M PRN; Protocol PRN Reason: Hypoglycemia Protocol Vancomycin HCl (Vancomycin 1gm) 1 gm in 250 mls @ 167 mls/hr IVPB DAILY [facility]; Protocol Last Admin: 09/03/18 10:41 Dose: 167 mls/hr Piperacillin Sod/Tazobactam Sod (Zosyn 3.375 In Ns 100ml) 100 mls @ 25 mls/hr IVPB Q8 [facility]; Protocol Stop: 09/10/18 22:01 Last Admin: 09/03/18 06:53 Dose: 25 mls/hr Insulin Human Regular (Humulin R Med) 0 units SC ACHS [facility]; Protocol Last Admin: 09/03/18 08:00 Dose: Not Given Metoprolol Tartrate (Lopressor) 25 mg PO BID [facility] Tramadol HCl (Ultram) 50 mg PO TID PRN PRN Reason: Pain, moderate (4-7) Warfarin Sodium (Coumadin) 5 mg PO 1800 [facility] Last Admin: 09/02/18 17:33 Dose: 5 mg - Labs Labs: 09/03/18 06:20 09/03/18 06:20 PT 20.5 SECONDS (9.4-12.5) H 09/03/18 06:20 INR 1.76 09/03/18 06:20 APTT 33.3 Seconds (25.1-36.5) 09/02/18 06:40 - Constitutional Appears: Well, Non-toxic - Head Exam Head Exam: NORMAL INSPECTION - Eye Exam Eye Exam: Normal appearance - ENT Exam ENT Exam: Normal Exam - Neck Exam Neck Exam: Normal Inspection - Respiratory Exam Respiratory Exam: Clear to Ausculation Bilateral, NORMAL BREATHING PATTERN - Cardiovascular Exam Cardiovascular Exam: Irregular Rhythm, +S1, +S2 - GI/Abdominal Exam GI & Abdominal Exam: Soft, Normal Bowel Sounds - Rectal Exam Rectal Exam: Deferred - Extremities Exam Extremities Exam: Full ROM, Normal Inspection - Back Exam Back Exam: NORMAL INSPECTION - Neurological Exam Neurological Exam: Alert, Awake - Psychiatric Exam Psychiatric exam: Normal Affect - Skin Skin Exam: Dry, Intact, Normal Color, Warm Assessment and Plan - Assessment and Plan (Free Text) Assessment: ITS Impressions Abdomen/Pelvis CT 09/01/18 10:58 IMPRESSION: Postoperative changes in the right upper quadrant consist of air/fluid in the gallbladder fossa. Adjacent drain identified. Trace free air noted. Postoperative changes anterior abdominal wall likely hematoma. This appears subjacent to surgical clips. Redemonstration of bladder wall mass Small bilateral pleural effusions. Dependent atelectatic changes/infiltrates. Right middle lobe infiltrate. Head CT 09/01/18 10:58 IMPRESSION: No acute intracranial abnormalities. No significant findings to account for the clinical presentation. No significant interval change compared to the prior examination(s). Chest X-Ray 09/01/18 11:00 IMPRESSION: Evolving right lower lobe infiltrate. Cardiomegaly/new pulmonary vascular congestion. Chest X-Ray 09/02/18 05:00 IMPRESSION: Vascular congestion with patchy infiltrate in the right lower lobe Assessment/Plan: Mr. Sr is an 88-year-old man with a past medical history of CHF, afib on coumadin, who was in the TCU after a cholecystectomy, who was found unresponsive . He was not responsive to deep painful stimulus. CT scan of the head did not show any acute findings. He was not a candidate for IV tPA due to being on coumadin and lovenox. Shortly after the event, the patient became responsive, admitted for further neuro workup and evaluation. 1. AMS likely secondary to acute encephalopathy, likely secondary to Pneumonia - being followed by neurology 2. CHF - continue Lasix for diuresis 3. Pneumonia- RLL - continue IV Antibiotics as per I.D.awaiting recs on antibiotic course. 4. Bladder Wall Mass. Urology consult pending. Pt eunice is pending, Will continue to monitor clinical status and follow closely.
--- NOTE | 2018-09-03 16:55 | CP.PCM.PN ---
Subjective - Date & Time of Evaluation Date of Evaluation: 09/03/18 Time of Evaluation: 16:52 - Subjective Subjective: Neurology Progress Note: Patient seen and assessed at bedside in ICU. No acute events noted overnight. Patient without complaints at this time and 12 point ROS unremarkable at this time. Objective - Vital Signs/Intake and Output Vital Signs (last 24 hours): Temp Pulse Resp BP Pulse Ox 98.9 F 62 19 116/42 L 95 09/02/18 20:00 09/03/18 06:00 09/02/18 18:00 09/03/18 10:41 09/02/18 18:00 Intake and Output: 09/03/18 09/03/18 06:59 18:59 Intake Total 1950 Output Total 1510 Balance 440 - Medications Medications: Current Medications Acetaminophen (Tylenol 325mg Tab) 650 mg PO Q6H PRN PRN Reason: Fever >100.4 F Aspirin (Aspirin Chewable) 81 mg PO DAILY [facility] Last Admin: 09/03/18 10:44 Dose: 81 mg Dextrose (Dextrose 50% Inj) 0 ml IV STAT PRN; Protocol PRN Reason: Hypoglycemia Protocol Furosemide (Lasix) 40 mg PO DAILY [facility] Last Admin: 09/03/18 10:41 Dose: 40 mg Dextrose (Dextrose 5% In Water 1000 Ml) 1,000 mls @ 0 mls/hr IV .Q0M PRN; Protocol PRN Reason: Hypoglycemia Protocol Vancomycin HCl (Vancomycin 1gm) 1 gm in 250 mls @ 167 mls/hr IVPB DAILY [facility]; Protocol Last Admin: 09/03/18 10:41 Dose: 167 mls/hr Piperacillin Sod/Tazobactam Sod (Zosyn 3.375 In Ns 100ml) 100 mls @ 25 mls/hr IVPB Q8 [facility]; Protocol Stop: 09/10/18 22:01 Last Admin: 09/03/18 15:32 Dose: 25 mls/hr Insulin Human Regular (Humulin R Med) 0 units SC ACHS [facility]; Protocol Last Admin: 09/03/18 12:00 Dose: Not Given Metoprolol Tartrate (Lopressor) 25 mg PO BID [facility] Tramadol HCl (Ultram) 50 mg PO TID PRN PRN Reason: Pain, moderate (4-7) Warfarin Sodium (Coumadin) 5 mg PO 1800 [facility] Last Admin: 09/02/18 17:33 Dose: 5 mg - Labs Labs: 09/03/18 06:20 09/03/18 06:20 PT 20.5 SECONDS (9.4-12.5) H 09/03/18 06:20 INR 1.76 09/03/18 06:20 APTT 33.3 Seconds (25.1-36.5) 09/02/18 06:40 - Constitutional Appears: Non-toxic, No Acute Distress - Head Exam Head Exam: ATRAUMATIC, NORMOCEPHALIC - Eye Exam Eye Exam: EOMI, Normal appearance, PERRL Pupil Exam: NORMAL ACCOMODATION - ENT Exam ENT Exam: Mucous Membranes Moist - Neck Exam Neck Exam: Full ROM - Respiratory Exam Respiratory Exam: Clear to Ausculation Bilateral, NORMAL BREATHING PATTERN - Cardiovascular Exam Cardiovascular Exam: REGULAR RHYTHM - GI/Abdominal Exam GI & Abdominal Exam: Soft, Normal Bowel Sounds. absent: Tenderness - Extremities Exam Extremities Exam: Normal Inspection - Neurological Exam Neurological Exam: Alert, Awake, CN II-XII Intact, Oriented x3, Reflexes Normal Neuro motor strength exam: Left Upper Extremity: 4, Right Upper Extremity: 4, Left Lower Extremity: 4, Right Lower Extremity: 4 Additional comments: Unsteady gait; No dysmetria, dysarthria or any other focal neurological deficits noted at this time - Psychiatric Exam Psychiatric exam: Normal Affect, Normal Mood - Skin Skin Exam: Dry, Warm Assessment and Plan - Assessment and Plan (Free Text) Assessment: 88 year old male with a past medical history significant for CHF, Atrial Fibrillation on Coumadin who was in the TCU after a cholecystectomy and was found unresponsive. Plan: -CT Head negative for acute infarction -EEG Negative -No further neurological procedures/imaging indicated at this time -Further recommendations as per Dr. Bird Patient seen and case discussed with attending, Dr. Bird. Wei Post PGY2
[2018-09-04] MEDS: Piperacillin/Tazobact 3.375 gm 100 ML IVPB SCH ×2 (05:19→15:15)
[2018-09-04 06:58] LABS: BASO # 0.04 K/mm3 (0.0-2.0); BASO % 0.3 % (0.0-3.0); EOS # 0.4 (0.0-0.7); GRAN # 9.66 (1.4-6.5); GRAN % 70.7 % (50.0-68.0); HEMOGLOBIN 10.7 g/dL (14.0-18.0); LYMPH # 2.4 (1.2-3.4); LYMPH % 17.8 % (22.0-35.0); MEAN CELL VOLUME 100.3 fl (80.0-105.0); MEAN CORPUSCULAR HGB CONC 31.9 g/dl (31.0-37.0); MEAN PLATELET VOLUME 10.3 fl (7.0-11.0); MONO # 1.1 (0.1-0.6); MONO % 8.2 % (1.0-6.0); RBC 3.34 10^6/uL (3.5-6.1); RED CELL DISTRIBUTION WIDTH 15.8 % (11.5-14.5); WHITE BLOOD COUNT 13.7 10^3/uL (4.5-11.0)
[2018-09-04 07:01] LABS: INR 1.82; PROTHROMBIN TIME 21.2 SECONDS (9.4-12.5)
[2018-09-04 07:08] LABS: ALB/GLOB RATIO 0.9 (1.1-1.8); ALBUMIN 3.2 g/dL (3.0-4.8); CALCIUM 8.5 mg/dL (8.4-10.5)
[2018-09-04] MEDS: Insulin Reg-MEDIUM-Coverage SC SCH ×3 (08:08→16:44)
--- NOTE | 2018-09-04 08:10 | CP.PCM.PN ---
Subjective - Date & Time of Evaluation Date of Evaluation: 09/04/18 Time of Evaluation: 07:00 - Subjective Subjective: Infectious disease progress note: Pt seen and examined at bedside. No acute events overnight. He still complains of mild right sided abd pain No other complaints. 12 Point ROS performed and neg other than stated above. Objective - Vital Signs/Intake and Output Vital Signs (last 24 hours): Temp Pulse Resp BP Pulse Ox 98.6 F 66 19 116/42 L 95 09/04/18 04:00 09/04/18 06:00 09/02/18 18:00 09/03/18 10:41 09/02/18 18:00 Intake and Output: 09/04/18 09/04/18 06:59 18:59 Intake Total 320 Output Total 200 Balance 120 - Medications Medications: Current Medications Acetaminophen (Tylenol 325mg Tab) 650 mg PO Q6H PRN PRN Reason: Fever >100.4 F Last Admin: 09/04/18 07:32 Dose: 650 mg Aspirin (Aspirin Chewable) 81 mg PO DAILY [facility] Last Admin: 09/03/18 10:44 Dose: 81 mg Dextrose (Dextrose 50% Inj) 0 ml IV STAT PRN; Protocol PRN Reason: Hypoglycemia Protocol Furosemide (Lasix) 40 mg PO DAILY [facility] Last Admin: 09/03/18 10:41 Dose: 40 mg Dextrose (Dextrose 5% In Water 1000 Ml) 1,000 mls @ 0 mls/hr IV .Q0M PRN; Protocol PRN Reason: Hypoglycemia Protocol Vancomycin HCl (Vancomycin 1gm) 1 gm in 250 mls @ 167 mls/hr IVPB DAILY [facility]; Protocol Last Admin: 09/03/18 10:41 Dose: 167 mls/hr Piperacillin Sod/Tazobactam Sod (Zosyn 3.375 In Ns 100ml) 100 mls @ 25 mls/hr IVPB Q8 [facility]; Protocol Stop: 09/10/18 22:01 Last Admin: 09/04/18 05:19 Dose: 25 mls/hr Insulin Human Regular (Humulin R Med) 0 units SC ACHS [facility]; Protocol Last Admin: 09/03/18 22:04 Dose: Not Given Metoprolol Tartrate (Lopressor) 25 mg PO BID [facility] Tramadol HCl (Ultram) 50 mg PO TID PRN PRN Reason: Pain, moderate (4-7) Warfarin Sodium (Coumadin) 5 mg PO 1800 [facility] Last Admin: 09/03/18 18:57 Dose: 5 mg - Labs Labs: 09/04/18 06:30 09/04/18 06:30 PT 21.2 SECONDS (9.4-12.5) H 09/04/18 06:30 INR 1.82 09/04/18 06:30 APTT 33.3 Seconds (25.1-36.5) 09/02/18 06:40 - Constitutional Appears: No Acute Distress - Head Exam Head Exam: ATRAUMATIC, NORMOCEPHALIC - Eye Exam Eye Exam: EOMI - ENT Exam ENT Exam: Mucous Membranes Moist - Respiratory Exam Respiratory Exam: Clear to Ausculation Bilateral Additional comments: no r/r/w - Cardiovascular Exam Cardiovascular Exam: REGULAR RHYTHM, +S1, +S2 - GI/Abdominal Exam GI & Abdominal Exam: Soft, Normal Bowel Sounds (No tenderness ) - Extremities Exam Extremities Exam: absent: Calf Tenderness, Pedal Edema - Neurological Exam Neurological Exam: Alert, Awake, Oriented x3 - Psychiatric Exam Psychiatric exam: Normal Mood - Skin Skin Exam: Dry, Warm Assessment and Plan - Assessment and Plan (Free Text) Assessment: 88 y/o male with PMHx of A. Fib on coumadin, pacemaker, aortic insufficiency, CKD, s/p lap converted to open cholecystectomy presents with [employer] and episode of unresponsiveness while in the TCU. Found to have a R middle lobe infiltrate / hospital acquired pneumonia. - CTAP showed R middle lobe pneumonia - Continue abx Vanc and Zosyn day 3 of 4 before deescalating abx - Blood cx x 48hr neg - Procal was neg - will repeat neg as well - MRSA screen -neg Case and plan was reviewed and discussed with Dr Kennedy.
[2018-09-04] MEDS: Vancomycin 1gm in NS 250ml 1 GM/250 ML BAG IVPB SCH (10:08)
--- NOTE | 2018-09-04 10:15 | PN ---
DATE: 09/04/2018 SUBJECTIVE: I saw him in the Intensive Care Unit. He is sitting up eating his breakfast. He is doing better, still having right upper quadrant discomfort. He is still weak. He is recommended to go to TCU, hope to get him to TCU today. MEDICATIONS: He is on aspirin, Coumadin, dextrose, Lasix, Lopressor, Tylenol, Ultram, vancomycin IV and Zosyn IV. OBJECTIVE: VITAL SIGNS: He has a 98.6 temperature, 66 pulse, 116/42 blood pressure, 19 respiratory rate, 95% O2 sat on room air. HEENT: Head is atraumatic, normocephalic. HEART: Regular rate. LUNGS: Clear to auscultation. ABDOMEN: Soft. Positive bowel sounds. He got a wound on the right side. EXTREMITIES: No edema. LABORATORY DATA: He has a 30.7 white count, little bit high, 10.7 hemoglobin, 32.5 hematocrit, 328 platelets. 1.82 INR. He has 141 sodium, potassium 3.8, BUN 20, creatinine 1.4, GFR is 48, sugar is 101, calcium is 8.5, total bili is 0.8. AST is 48, ALT is 37 with alk phos 110, total protein is 6.7. I am hoping to get him to TCU today if possible. I think he is ready to go. He is improved enough. We will watch him over there, watch his blood counts and hopefully we can get him to TCU today with multiple issues. He had acute cholecystitis, an open cholecystectomy with a need of a hepatobiliary surgeon. He has AFib, hypertension, diabetes, pneumonia, was also code rapid response. Dieter Griggs DO
--- NOTE | 2018-09-04 13:04 | CP.PCM.APN ---
Subjective - Date & Time of Evaluation Date of Evaluation: 09/04/18 Time of Evaluation: 12:20 - Subjective Subjective: Pt. seen and examined , sitting up in chair, eating lunch, denied shortness of breath, denied chest pain, denied cough. Review of Systems - Constitutional Constitutional: As Per HPI - EENT Eyes: absent: As Per HPI, Blind Spots, Blurred Vision, Change in Vision, Decreased Night Vision, Diplopia, Discharge, Dry Eye, Exophthalmos, Floaters, Irritation, Itchy Eyes, Loss of Peripheral Vision, Pain, Photophobia, Requires Corrective Lenses, Sees Flashes, Spots in Vision, Tunnel Vision, Other Visual Disturbances, Loss of Vision, Other Ears: absent: As Per HPI, Decreased Hearing, Ear Discharge, Ear Pain, Tinnitus, Abnormal Hearing, Disequilibrium, Dizziness, Other Nose/Mouth/Throat: absent: As Per HPI, Epistaxis, Nasal Congestion, Nasal Discharge, Nasal Obstruction, Nasal Trauma, Nose Pain, Post Nasal Drip, Sinus Pain, Sinus Pressure, Bleeding Gums, Change in Voice, Dental Pain, Dry Mouth, Dysphagia, Halitosis, Hoarsness, Lip Swelling, Mouth Lesions, Mouth Pain, Odynophagia, Sore Throat, Throat Swelling, Tongue Swelling, Facial Pain, Neck Pain, Neck Mass, Other - Cardiovascular Cardiovascular: absent: As Per HPI, Acrocyanosis, Chest Pain, Chest Pain at Rest, Chest Pain with Activity, Claudication, Diaphoresis, Dyspnea, Dyspnea on Exertion, Edema, Irregular Heart Rhythm, Pain Radiating to Arm/Neck/Jaw, Leg Edema, Leg Ulcers, Lightheadedness, Orthopnea, Palpitations, Paroxysmal Nocturnal Dyspnea, Pedal Edema, Radiating Pain, Rapid Heart Rate, Slow Heart Rate, Syncope, Other - Respiratory Respiratory: absent: As Per HPI, Cough, Dyspnea, Hemoptysis, Dyspnea on Exertion, Wheezing, Snoring, Stridor, Pain on Inspiration, Chest Congestion, Excessive Mucous Production, Change in Mucous Color, Pain with Coughing, Other - Gastrointestinal Gastrointestinal: absent: As Per HPI, Abdominal Pain, Belching, Bloating, Change in Bowel Habits, Change in Stool Character, Coffee Ground Emesis, Constipation, Cramping, Diarrhea, Dyspepsia, Dysphagia, Early Satiety, Excessive Flatus, Fecal Incontinence, Heartburn, Hematemesis, Hematochezia, Loose Stools, Melena, Nausea, Odynophagia, Temesmus, Vomiting, Other - Genitourinary Genitourinary: absent: As Per HPI, Change in Urinary Stream, Difficulty Urinating, Dysuria, Flank Pain, Hematuria, Pyuria, Nocturia, Urinary Incontinence, Urinary Frequency, Urinary Hesitance, Urinary Urgency, Voiding Freq/Small Amts, Freq UTI, Hx Renal/Bladder Calculi, Hx /Renal Surgery, Blad rito Distension, Other - Musculoskeletal Musculoskeletal: absent: As Per HPI, Abnormal Gait, Arthralgias, Atrophy, Back Pain, Deformity, Joint Swelling, Limited Range of Motion, Loss of Height, Muscle Cramps, Muscle Weakness, Myalgias, Neck Pain, Numbness, Radiating Pain into Limb, Stiffness, Tingling, Other - Endocrine Endocrine: absent: As Per HPI, Change in Body Appearance, Change in Libido, Cold Intolorance, Deepening of Voice, Excessive Sweating, Fatigue, Flushing, Heat Intolorance, Increase in Ring/Shoe/Hat Size, Palpitations, Polydipsia, Polyphagia, Polyuria, Other - Hematologic/Lymphatic Hematologic: absent: As Per HPI, Easy Bleeding, Easy Bruising, Lymphadenopathy, Other Objective - Vital Signs/Intake and Output Vital Signs (last 24 hours): Temp Pulse Resp BP Pulse Ox 98.6 F 68 19 153/56 H 95 09/04/18 04:00 09/04/18 10:00 09/02/18 18:00 09/04/18 10:09 09/02/18 18:00 Intake and Output: 09/04/18 09/04/18 06:59 18:59 Intake Total 320 Output Total 200 Balance 120 - Medications Medications: Current Medications Acetaminophen (Tylenol 325mg Tab) 650 mg PO Q6H PRN PRN Reason: Fever >100.4 F Last Admin: 09/04/18 07:32 Dose: 650 mg Aspirin (Aspirin Chewable) 81 mg PO DAILY [facility] Last Admin: 09/04/18 10:11 Dose: 81 mg Dextrose (Dextrose 50% Inj) 0 ml IV STAT PRN; Protocol PRN Reason: Hypoglycemia Protocol Furosemide (Lasix) 40 mg PO DAILY [facility] Last Admin: 09/04/18 10:09 Dose: 40 mg Dextrose (Dextrose 5% In Water 1000 Ml) 1,000 mls @ 0 mls/hr IV .Q0M PRN; Protocol PRN Reason: Hypoglycemia Protocol Vancomycin HCl (Vancomycin 1gm) 1 gm in 250 mls @ 167 mls/hr IVPB DAILY [facility]; Protocol Last Admin: 09/04/18 10:08 Dose: 167 mls/hr Piperacillin Sod/Tazobactam Sod (Zosyn 3.375 In Ns 100ml) 100 mls @ 25 mls/hr IVPB Q8 [facility]; Protocol Stop: 09/10/18 22:01 Last Admin: 09/04/18 05:19 Dose: 25 mls/hr Insulin Human Regular (Humulin R Med) 0 units SC ACHS [facility]; Protocol Last Admin: 09/04/18 12:30 Dose: Not Given Metoprolol Tartrate (Lopressor) 25 mg PO BID [facility] Tramadol HCl (Ultram) 50 mg PO TID PRN PRN Reason: Pain, moderate (4-7) Warfarin Sodium (Coumadin) 5 mg PO 1800 [facility] Last Admin: 09/03/18 18:57 Dose: 5 mg - Labs Labs: 09/04/18 06:30 09/04/18 06:30 PT 21.2 SECONDS (9.4-12.5) H 09/04/18 06:30 INR 1.82 09/04/18 06:30 APTT 33.3 Seconds (25.1-36.5) 09/02/18 06:40 - Constitutional Appears: Well, Non-toxic - Head Exam Head Exam: NORMOCEPHALIC - Eye Exam Eye Exam: Normal appearance Pupil Exam: NORMAL ACCOMODATION - ENT Exam ENT Exam: Mucous Membranes Moist, Normal Exam - Neck Exam Neck Exam: Full ROM, Normal Inspection - Respiratory Exam Respiratory Exam: Clear to Ausculation Bilateral, NORMAL BREATHING PATTERN - Cardiovascular Exam Cardiovascular Exam: REGULAR RHYTHM, +S1, +S2 - GI/Abdominal Exam GI & Abdominal Exam: Soft, Normal Bowel Sounds - Rectal Exam Rectal Exam: Deferred - Exam Exam: absent: Circumcision, NORMAL INSPECTION, Scrotal Swelling, Testicular Tenderness, Uretheral Discharge, Testicular Vertical Lie, Bladder Distension External exam: absent: Ecchymosis, Erythema, Lacerations, Lesions, NORMAL EXTERNAL EXAM, Swelling Speculum exam: absent: Cervical Discharge, Erythema, Foreign Body, Laceration, NORMAL SPECULUM EXAM, Tissue, Vaginal Bleeding, Vaginal Discharge Bimanual exam: absent: Adenexal Mass, Adnexal, Cervical Motion Tendernes, NORMAL BIMANUAL EXAM, Uterine Enlargement, Uterine Tenderness - Extremities Exam Extremities Exam: Full ROM, Normal Inspection - Back Exam Back Exam: NORMAL INSPECTION - Neurological Exam Neurological Exam: Alert, Awake, Oriented x3 - Psychiatric Exam Psychiatric exam: Normal Affect - Skin Skin Exam: Dry, Intact, Normal Color, Warm
[2018-09-04 16:37] VITALS: BP 133/58; PULSE 76; RESP 39; O2SAT 100
[2018-09-04 16:38] VITALS: TEMP 98.4
--- NOTE | 2018-09-05 17:37 | PQF ---
PROVIDER RESPONSE TEXT: As per ID REVIEWER QUERY TEXT: Conflicting Documentation Clarification A single mention or documentation of multiple diagnoses for the same clinical presentation appears in the record. Please clarify the diagnosis/diagnoses. Please also document if the condition is: -- Confirmed and current -- Confirmed, treated and resolved -- Ruled out -- Other, please specify The patient's Clinical Indicators include: ID physician documents "continue Vancomycin and Zosyn for sepsis from RML HCAP" on consult of 09/02 an d "RML HCAP with sepsis" on his progress note of 09/03. Do you agree, disagree, other, undetermined wi th dx. of sepsis for this patient? If you agree, was sepsis present on admission? Thank you. Query created by: Enma Bates on 09/05/2018 11:20 AM Electronically signed by: Dieter Griggs DO 09/05/2018 5:34 PM
== END 2018-09-04 18:05 | DRG 871 ==
LOC: ED 10:54 → ERH 12:47 → CCU 14:16
PROVIDERS: ADMIT Family Medicine; ATTEND Family Medicine
DX: A41.9 Sepsis, unspecified organism (principal); J69.0 Pneumonitis due to inhalation of food and vomit; G93.40 Encephalopathy, unspecified; I13.0 Hypertensive heart and chronic kidney disease with heart failure and stage 1 through stage 4 chronic kidney disease, or unspecified chronic kidney disease; I48.91 Unspecified atrial fibrillation; E11.22 Type 2 diabetes mellitus with diabetic chronic kidney disease; E03.9 Hypothyroidism, unspecified; I25.10 Atherosclerotic heart disease of native coronary artery without angina pectoris; K74.60 Unspecified cirrhosis of liver; Z79.01 Long term (current) use of anticoagulants; I35.1 Nonrheumatic aortic (valve) insufficiency; I50.9 Heart failure, unspecified; N18.9 Chronic kidney disease, unspecified; N40.0 Benign prostatic hyperplasia without lower urinary tract symptoms; R29.702 NIHSS score 2; Y95 Nosocomial condition; Z86.74 Personal history of sudden cardiac arrest; Z87.891 Personal history of nicotine dependence; Z90.49 Acquired absence of other specified parts of digestive tract; Z91.81 History of falling; Z95.0 Presence of cardiac pacemaker

== ENCOUNTER 2018-09-04 18:05 | Inpatient (IN) | payer OTHER, MEDICAID ==
[2018-09-04] MEDS ORDERED: Dextrose 50% SYRINGE Inj (50 ml) IVP PRN (19:01)
[2018-09-04 19:34] VITALS: BMI 26.1
[2018-09-04] MEDS: Piperacillin/Tazobact 3.375 gm 100 ML IVPB SCH (21:43)
[2018-09-04] MEDS: Insulin Reg-MEDIUM-Coverage SC SCH (22:07)
[2018-09-05] MEDS: Piperacillin/Tazobact 3.375 gm 100 ML IVPB SCH (05:28)
[2018-09-05] MEDS ORDERED: Vancomycin 1gm in NS 250ml 1 GM/250 ML BAG IVPB SCH (06:00)
[2018-09-05] MEDS: Insulin Reg-MEDIUM-Coverage SC SCH ×4 (06:51→21:34)
[2018-09-05 07:16] LABS: BASO # 0.03 K/mm3 (0.0-2.0); BASO % 0.3 % (0.0-3.0); EOS # 0.5 (0.0-0.7); EOS % 5.6 % (1.5-5.0); GRAN # 5.86 (1.4-6.5); GRAN % 60.7 % (50.0-68.0); HEMOGLOBIN 9.8 g/dL (14.0-18.0); LYMPH % 20.7 % (22.0-35.0); MEAN CELL VOLUME 100.7 fl (80.0-105.0); MEAN CORPUSCULAR HEMOGLOBIN 32.7 pg (25.0-35.0); MEAN CORPUSCULAR HGB CONC 32.5 g/dl (31.0-37.0); MEAN PLATELET VOLUME 10.6 fl (7.0-11.0); MONO # 1.2 (0.1-0.6); MONO % 12.7 % (1.0-6.0); RED CELL DISTRIBUTION WIDTH 16.4 % (11.5-14.5); WHITE BLOOD COUNT 9.7 10^3/uL (4.5-11.0)
[2018-09-05 07:19] LABS: INR 2.07; PROTHROMBIN TIME 24.2 SECONDS (9.4-12.5)
[2018-09-05 07:25] LABS: ALB/GLOB RATIO 0.9 (1.1-1.8); ALBUMIN 2.9 g/dL (3.0-4.8); ALT/SGPT 37 U/L (7-56); AST/SGOT 39 U/L (17-59); BLOOD UREA NITROGEN 19 mg/dL (7-21); CALCIUM 8.2 mg/dL (8.4-10.5); GFR NON-AFRICAN AMERICAN 52
[2018-09-05] MEDS ORDERED: Potassium Chloride 20 mEq ER Tab PO ONE (09:05)
--- NOTE | 2018-09-05 09:47 | HP ---
DATE OF EXAM: 09/05/2018 HISTORY OF PRESENT ILLNESS: Ricardo is having a rough go this time in the hospital. He came in with abdominal pain. He ended up having an acute cholecystis cystitis, had a laparoscopic cholecystectomy which turned into a open cholecystectomy, which turned into a need of a hepatobiliary surgeon to come in and finish the surgery and then he went to the Intensive Care Unit. He then did well enough to go to Transitional Care Unit and then he was unresponsive. He had a rapid response. He was sent to the emergency room. He came back to the hospital side. He then woke up. Now, he was transferred back to the TCU yesterday. I saw him this morning. He is a 88-year-old man who looks fantastic again in the Transitional Care Unit with an appetite, decreased abdominal pain. He is going to do well with walking. PAST MEDICAL HISTORY: He has a past medical history of atrial fibrillation, on Coumadin, pacemaker, CHF, diabetes, BPH, hypertension, status post open cholecystectomy. He became unresponsive, hypertensive, hypothyroid, falls, BPH. He also with asystole in the past. FAMILY HISTORY: No known family history. SOCIAL HISTORY: Former smoker. He was drinking a little bit of wine about a month ago. No drugs. ALLERGIES: NO KNOWN DRUG ALLERGIES. MEDICATIONS: Imdur, lisinopril, and Flomax. Presently right now, he is comfortable in bed. He is alert and oriented x3. No vision issues,no hearing issues. No sore throat. No chest pain or palpitations. No shortness of breath or cough. His abdomen is comfortable. He has got no pain this morning at this time, status post surgery. He has got moving the bowels okay. Extremities little bit weak. He needs physical therapy, but he is improving with the strength. PHYSICAL EXAMINATION: VITAL SIGNS: He has a 98 temperature, 83 pulse, 124/60 blood pressure, 18 respiratory rate. HEENT: Head: Atraumatic, normocephalic. Extraocular muscles intact. Pupils equal, react to light and accommodation. Throat is moist. NECK: Supple. HEART: Regular rate. LUNGS: Decreased breath sounds but clear. ABDOMEN: Soft. Positive bowel sounds even though he had surgery in the right upper quadrant, he is nontender. EXTREMITIES: No edema. SKIN: For the most part is intact. He has incisional lines on the right upper quadrant area. NEUROLOGIC: Alert and oriented x3. LYMPH: Thyroid midline. No palpable appreciable lymphadenopathy. LABORATORY DATA: He has a 9.7 white count, 9.8 hemoglobin, 30.2 hematocrit with 296 platelets. INR is 2.07. He has 140 sodium, potassium 3.4, replaced potassium. BUN is 19. Creatinine is 1.3, GFR is 52, sugar is 101, calcium is 8.2, total bili is 0.8, AST is 39, ALT is 37, alk phos 95, total protein 6.2. He will be on his medications here. He is currently on aspirin, warfarin, dextrose, insulin, potassium replacement, Lasix, metoprolol, vancomycin IV and Zosyn. He will be on his IV antibiotics as per Infectious Disease, suppose surgical care and physical therapy. Dieter Griggs DO MTDD
--- NOTE | 2018-09-05 10:51 | CP.PCM.CON ---
<Adriano Jc - Last Filed: 09/05/18 13:09> History of Present Illness - History of Present Illness History of Present Illness: Infectious disease consult note: 88 y/o male with PMHx of Eleanor Styles on coumadin, pacemaker, aortic insufficiency, CKD, s/p lap converted to open cholecystectomy Initially sent to the TCU for deconditioning and weakness aprox 1 week ago. 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 Patients change in mental status resolved. he was found to have a R middle lobe infiltrate and treated for hospital acquired pneumonia. No other complaints. Denies any fever, chills, sob, cp, abd pain, n/v/d, urinary changes. Patient sent back to the TCU for weakness and cont rehab. 12 Point ROS performed and neg other than stated above. PMHx: Nish on coumadin, CKD, pacemaker, aortic insufficiency PSHx: Cholecystectomy Meds: as per EMR Allergies: NKA FHx: Denies Review of Systems - Review of Systems All systems: reviewed and no additional remarkable complaints except Past Patient History - Infectious Disease Hx of Infectious Diseases: None - Tetanus Immunizations Tetanus Immunization: Unknown - Past Social History Smoking Status: Former Smoker - CARDIAC Hx Cardiac Disorders: Yes Hx Congestive Heart Failure: Yes Hx Hypertension: Yes - PULMONARY Hx Respiratory Disorders: No - NEUROLOGICAL Hx Neurological Disorder: No - HEENT Hx HEENT Problems: No - RENAL Hx Chronic Kidney Disease: No - ENDOCRINE/METABOLIC Hx Hypothyroidism: Yes - HEMATOLOGICAL/ONCOLOGICAL Hx Blood Transfusions: No Hx Blood Transfusion Reaction: (NA) - INTEGUMENTARY Hx Dermatological Problems: No - MUSCULOSKELETAL/RHEUMATOLOGICAL Hx Falls: No - GASTROINTESTINAL Hx Gastrointestinal Disorders: No - GENITOURINARY/GYNECOLOGICAL Hx Reproductive Disorders: No - PSYCHIATRIC Hx Psychophysiologic Disorder: No Hx Substance Use: No - SURGICAL HISTORY Hx Cholecystectomy: Yes Hx Orthopedic Surgery: Yes (r knee sx) - ANESTHESIA Hx Anesthesia: Yes Hx Anesthesia Reactions: Yes (bradycardia, asystole) Hx Malignant Hyperthermia: No Meds Allergies/Adverse Reactions: Allergies Allergy/AdvReac Type Severity Reaction Status Date / Time No Known Allergies Allergy Verified 08/30/18 20:29 - Medications Medications: Current Medications Acetaminophen (Tylenol 325mg Tab) 650 mg PO Q6H PRN; Protocol PRN Reason: Fever >100.4 F Aspirin (Aspirin Chewable) 81 mg PO 0800 [facility]; Protocol Last Admin: 09/05/18 08:13 Dose: 81 mg Dextrose (Dextrose 50% Inj) 50 ml IVP PRN PRN; Protocol PRN Reason: Hypoglycemia Furosemide (Lasix) 40 mg PO 0600 [facility]; Protocol Last Admin: 09/05/18 05:31 Dose: 40 mg Vancomycin HCl (Vancomycin 1gm) 1 gm in 250 mls @ 167 mls/hr IVPB 0600 [facility]; Protocol Last Admin: 09/05/18 06:07 Dose: 167 mls/hr Piperacillin Sod/Tazobactam Sod (Zosyn 3.375 In Ns 100ml) 100 mls @ 25 mls/hr IVPB Q8 [facility]; Protocol Stop: 09/06/18 22:01 Last Admin: 09/05/18 05:28 Dose: 25 mls/hr Insulin Human Regular (Humulin R Med) 0 units SC ACHS [facility]; Protocol Last Admin: 09/05/18 06:51 Dose: Not Given Metoprolol Tartrate (Lopressor) 25 mg PO 0800,1800 [facility]; Protocol Last Admin: 09/05/18 08:13 Dose: 25 mg Tramadol HCl (Ultram) 50 mg PO TID PRN; Protocol PRN Reason: Pain, moderate (4-7) Warfarin Sodium (Coumadin) 5 mg PO 1800 [facility]; Protocol Physical Exam - Constitutional Appears: No Acute Distress - Head Exam Head Exam: ATRAUMATIC, NORMOCEPHALIC - Eye Exam Eye Exam: EOMI, PERRL - ENT Exam ENT Exam: Mucous Membranes Moist - Respiratory Exam Respiratory Exam: Clear to Auscultation Bilateral. absent: Wheezes - Cardiovascular Exam Cardiovascular Exam: REGULAR RHYTHM, RRR, +S1, +S2 - GI/Abdominal Exam GI & Abdominal Exam: Normal Bowel Sounds, Soft. absent: Tenderness - Extremities Exam Extremities exam: Negative for: calf tenderness, pedal edema - Neurological Exam Neurological exam: Alert, CN II-XII Intact, Oriented x3 - Psychiatric Exam Psychiatric exam: Normal Mood - Skin Skin Exam: Dry, Warm Results - Vital Signs Recent Vital Signs: Last Vital Signs Temp 97.6 F 09/05/18 10:00 Pulse 66 09/05/18 10:00 Resp 14 09/05/18 10:00 BP 132/69 09/05/18 10:00 Pulse Ox 98 09/05/18 10:00 - Labs Result Diagrams: 09/05/18 06:55 09/05/18 06:55 Labs: Laboratory Results - last 24 hr 09/04/18 09/05/18 09/05/18 22:04 05:18 06:55 WBC 9.7 D RBC 3.00 L Hgb 9.8 L Hct 30.2 L MCV 100.7 MCH 32.7 MCHC 32.5 RDW 16.4 H Plt Count 296 MPV 10.6 Gran % 60.7 Lymph % (Auto) 20.7 L [place] % (Auto) 12.7 H Eos % (Auto) 5.6 H Baso % (Auto) 0.3 Gran # 5.86 Lymph # (Auto) 2.0 [place] # (Auto) 1.2 H Eos # (Auto) 0.5 Baso # (Auto) 0.03 PT INR Sodium Potassium Chloride Carbon Dioxide Anion Gap BUN Creatinine Est GFR ( Amer) Est GFR (Non-Af Amer) POC Glucose (mg/dL) 107 94 Random Glucose Calcium Total Bilirubin AST ALT Alkaline Phosphatase Total Protein Albumin Globulin Albumin/Globulin Ratio 09/05/18 09/05/18 06:55 06:55 WBC RBC Hgb Hct MCV MCH MCHC RDW Plt Count MPV Gran % Lymph % (Auto) [place] % (Auto) Eos % (Auto) Baso % (Auto) Gran # Lymph # (Auto) [place] # (Auto) Eos # (Auto) Baso # (Auto) PT 24.2 H INR 2.07 Sodium 140 Potassium 3.4 L Chloride 103 Carbon Dioxide 33 Anion Gap 8 L BUN 19 Creatinine 1.3 Est GFR ( Amer) > 60 Est GFR (Non-Af Amer) 52 POC Glucose (mg/dL) Random Glucose 101 Calcium 8.2 L Total Bilirubin 0.8 AST 39 ALT 37 Alkaline Phosphatase 95 Total Protein 6.2 Albumin 2.9 L Globulin 3.3 Albumin/Globulin Ratio 0.9 L Assessment & Plan - Assessment and Plan (Free Text) Assessment: 88 y/o male with PMHx of A. Fib on coumadin, pacemaker, aortic insufficiency, CKD, s/p lap converted to open cholecystectomy presents with SOLDER TECHNICIAN and episode of unresponsiveness while in the TCU. Found to have a R middle lobe infiltrate / hospital acquired pneumonia. - CTAP showed R middle lobe pneumonia - Continue abx Vanc and Zosyn day 4 of 4. Will d/c and monitor off abx. - Septic work up neg thus far - Cont to monitor for changes Case and plan was reviewed and discussed with Dr Kennedy. <Valentin Kennedy - Last Filed: 09/05/18 16:51> Meds - Medications Medications: Current Medications Acetaminophen (Tylenol 325mg Tab) 650 mg PO Q6H PRN; Protocol PRN Reason: Fever >100.4 F Aspirin (Aspirin Chewable) 81 mg PO 0800 [facility]; Protocol Last Admin: 09/05/18 08:13 Dose: 81 mg Dextrose (Dextrose 50% Inj) 50 ml IVP PRN PRN; Protocol PRN Reason: Hypoglycemia Furosemide (Lasix) 40 mg PO 0600 [facility]; Protocol Last Admin: 09/05/18 05:31 Dose: 40 mg Vancomycin HCl (Vancomycin 1gm) 1 gm in 250 mls @ 167 mls/hr IVPB ONCE ONE; Protocol Stop: 09/05/18 18:29 Piperacillin Sod/Tazobactam Sod (Zosyn 3.375 In Ns 100ml) 100 mls @ 200 mls/hr IVPB ONCE ONE; Protocol Stop: 09/05/18 17:29 Insulin Human Regular (Humulin R Med) 0 units SC ACHS [facility]; Protocol Last Admin: 09/05/18 12:27 Dose: Not Given Metoprolol Tartrate (Lopressor) 25 mg PO 0800,1800 [facility]; Protocol Last Admin: 09/05/18 08:13 Dose: 25 mg Tramadol HCl (Ultram) 50 mg PO TID PRN; Protocol PRN Reason: Pain, moderate (4-7) Warfarin Sodium (Coumadin) 5 mg PO 1800 [facility]; Protocol Results - Vital Signs Recent Vital Signs: Last Vital Signs Temp 97.6 F 09/05/18 10:00 Pulse 66 09/05/18 10:00 Resp 14 09/05/18 10:00 BP 132/69 09/05/18 10:00 Pulse Ox 98 09/05/18 10:00 - Labs Result Diagrams: 09/05/18 06:55 09/05/18 06:55 Labs: Laboratory Results - last 24 hr 09/04/18 09/05/18 09/05/18 22:04 05:18 06:55 WBC 9.7 D RBC 3.00 L Hgb 9.8 L Hct 30.2 L MCV 100.7 MCH 32.7 MCHC 32.5 RDW 16.4 H Plt Count 296 MPV 10.6 Gran % 60.7 Lymph % (Auto) 20.7 L [place] % (Auto) 12.7 H Eos % (Auto) 5.6 H Baso % (Auto) 0.3 Gran # 5.86 Lymph # (Auto) 2.0 [place] # (Auto) 1.2 H Eos # (Auto) 0.5 Baso # (Auto) 0.03 PT INR Sodium Potassium Chloride Carbon Dioxide Anion Gap BUN Creatinine Est GFR ( Amer) Est GFR (Non-Af Amer) POC Glucose (mg/dL) 107 94 Random Glucose Calcium Total Bilirubin AST ALT Alkaline Phosphatase Total Protein Albumin Globulin Albumin/Globulin Ratio 09/05/18 09/05/18 09/05/18 06:55 06:55 11:33 WBC RBC Hgb Hct MCV MCH MCHC RDW Plt Count MPV Gran % Lymph % (Auto) [place] % (Auto) Eos % (Auto) Baso % (Auto) Gran # Lymph # (Auto) [place] # (Auto) Eos # (Auto) Baso # (Auto) PT 24.2 H INR 2.07 Sodium 140 Potassium 3.4 L Chloride 103 Carbon Dioxide 33 Anion Gap 8 L BUN 19 Creatinine 1.3 Est GFR ( Amer) > 60 Est GFR (Non-Af Amer) 52 POC Glucose (mg/dL) 95 Random Glucose 101 Calcium 8.2 L Total Bilirubin 0.8 AST 39 ALT 37 Alkaline Phosphatase 95 Total Protein 6.2 Albumin 2.9 L Globulin 3.3 Albumin/Globulin Ratio 0.9 L Assessment & Plan - Assessment and Plan (Free Text) Assessment: Infectious diseases Attending Physician Attestation Patient seen and examined, discussed with medical massage therapist. I have reviewed the patient's history of present illness, past medical, social, personal and family histories, pertinent physical exam findings, course so far in this hospital admission, pertinent laboratory and imaging results. I agree with the above findings, assessment and plan. In addition, continue Zosyn for patient with RML HCAP S/P cholecystectomy for acute cholecystitis. May d/c antibiotics in the next 24 hours.
[2018-09-05] MEDS ORDERED: Piperacillin/Tazobact 3.375 gm 100 ML IVPB ONE (17:00)
[2018-09-05] MEDS ORDERED: Vancomycin 1gm in NS 250ml 1 GM/250 ML BAG IVPB ONE (17:00)
[2018-09-06] MEDS: Insulin Reg-MEDIUM-Coverage SC SCH ×4 (06:38→21:56)
[2018-09-06 06:58] LABS: MEAN CELL VOLUME 101.3 fl (80.0-105.0); MEAN CORPUSCULAR HEMOGLOBIN 32.4 pg (25.0-35.0); MEAN CORPUSCULAR HGB CONC 31.9 g/dl (31.0-37.0); MEAN PLATELET VOLUME 10.3 fl (7.0-11.0); RBC 3.09 10^6/uL (3.5-6.1); RED CELL DISTRIBUTION WIDTH 16.7 % (11.5-14.5); WHITE BLOOD COUNT 9.7 10^3/uL (4.5-11.0)
[2018-09-06 07:03] LABS: INR 1.99; PROTHROMBIN TIME 23.2 SECONDS (9.4-12.5)
[2018-09-06 07:13] LABS: ALB/GLOB RATIO 0.9 (1.1-1.8); ALBUMIN 3.1 g/dL (3.0-4.8); ALT/SGPT 31 U/L (7-56); AST/SGOT 41 U/L (17-59); BLOOD UREA NITROGEN 21 mg/dL (7-21); CALCIUM 8.4 mg/dL (8.4-10.5); GFR NON-AFRICAN AMERICAN 52
--- NOTE | 2018-09-06 08:40 | CP.PCM.CON ---
<Lenard Coburn - Last Filed: 09/06/18 08:35> History of Present Illness - History of Present Illness History of Present Illness: Podiatry consult note for Dr. De Los Santos 88M with pmhx of Nish on coumadin, CKD, pacemaker, aortic insufficiency seen and evaluated in TCU for elongated nails. States that he does not cut his nails on his own. Reports discomfort from nails. Denies N/V/F/C/SOB/CP today and has no other acute complaints. PMHx: above PSHx: Cholecystectomy All: NKDA Past Patient History - Infectious Disease Hx of Infectious Diseases: None - Tetanus Immunizations Tetanus Immunization: Unknown - Past Social History Smoking Status: Former Smoker - CARDIAC Hx Cardiac Disorders: Yes Hx Congestive Heart Failure: Yes Hx Hypertension: Yes - PULMONARY Hx Respiratory Disorders: No - NEUROLOGICAL Hx Neurological Disorder: No - HEENT Hx HEENT Problems: No - RENAL Hx Chronic Kidney Disease: No - ENDOCRINE/METABOLIC Hx Hypothyroidism: Yes - HEMATOLOGICAL/ONCOLOGICAL Hx Blood Transfusions: No Hx Blood Transfusion Reaction: (NA) - INTEGUMENTARY Hx Dermatological Problems: No - MUSCULOSKELETAL/RHEUMATOLOGICAL Hx Falls: No - GASTROINTESTINAL Hx Gastrointestinal Disorders: No - GENITOURINARY/GYNECOLOGICAL Hx Reproductive Disorders: No - PSYCHIATRIC Hx Psychophysiologic Disorder: No Hx Substance Use: No - SURGICAL HISTORY Hx Cholecystectomy: Yes Hx Orthopedic Surgery: Yes (r knee sx) - ANESTHESIA Hx Anesthesia: Yes Hx Anesthesia Reactions: Yes (bradycardia, asystole) Hx Malignant Hyperthermia: No Meds Allergies/Adverse Reactions: Allergies Allergy/AdvReac Type Severity Reaction Status Date / Time No Known Allergies Allergy Verified 08/30/18 20:29 - Medications Medications: Current Medications Acetaminophen (Tylenol 325mg Tab) 650 mg PO Q6H PRN; Protocol PRN Reason: Fever >100.4 F Aspirin (Aspirin Chewable) 81 mg PO 0800 [facility]; Protocol Last Admin: 09/06/18 08:13 Dose: 81 mg Dextrose (Dextrose 50% Inj) 50 ml IVP PRN PRN; Protocol PRN Reason: Hypoglycemia Furosemide (Lasix) 40 mg PO 0600 [facility]; Protocol Last Admin: 09/06/18 06:39 Dose: 40 mg Insulin Human Regular (Humulin R Med) 0 units SC ACHS [facility]; Protocol Last Admin: 09/06/18 06:38 Dose: Not Given Metoprolol Tartrate (Lopressor) 25 mg PO 0800,1800 [facility]; Protocol Last Admin: 09/06/18 08:13 Dose: 25 mg Tramadol HCl (Ultram) 50 mg PO TID PRN; Protocol PRN Reason: Pain, moderate (4-7) Last Admin: 09/06/18 00:16 Dose: 50 mg Warfarin Sodium (Coumadin) 5 mg PO 1800 [facility]; Protocol Last Admin: 09/05/18 18:00 Dose: 5 mg Physical Exam - Constitutional Appears: Well, Non-toxic, No Acute Distress - Head Exam Head Exam: ATRAUMATIC, NORMOCEPHALIC - Extremities Exam Additional comments: LE focused VASC: DP and PT pulses palpable; cap refill <3 seconds to all digits; temp gradient warm to cool; no edema noted to LEs DERM: skin temp and turgor within normal limits; no lesions or wounds apprecia sandee; elongated dystrophic nails x10 ORTHO: HT deformity noted b/l digits 2-5; no other gross pathology noted NEURO: gross and protective sensation intact b/l - Neurological Exam Neurological exam: Alert, Oriented x3 - Psychiatric Exam Psychiatric exam: Normal Affect, Normal Mood Results - Vital Signs Recent Vital Signs: Last Vital Signs Temp 98.1 F 09/05/18 16:00 Pulse 75 09/06/18 08:13 Resp 18 09/05/18 16:00 BP 152/71 H 09/06/18 08:13 Pulse Ox 96 09/05/18 16:00 - Labs Result Diagrams: 09/06/18 06:47 09/06/18 06:47 Labs: Laboratory Results - last 24 hr 09/05/18 09/05/18 09/05/18 11:33 17:00 21:27 WBC RBC Hgb Hct MCV MCH MCHC RDW Plt Count MPV PT INR Sodium Potassium Chloride Carbon Dioxide Anion Gap BUN Creatinine Est GFR ( Amer) Est GFR (Non-Af Amer) POC Glucose (mg/dL) 95 110 129 H Random Glucose Calcium Total Bilirubin AST ALT Alkaline Phosphatase Total Protein Albumin Globulin Albumin/Globulin Ratio 09/06/18 09/06/18 09/06/18 05:23 06:47 06:47 WBC 9.7 RBC 3.09 L Hgb 10.0 L Hct 31.3 L MCV 101.3 MCH 32.4 MCHC 31.9 RDW 16.7 H Plt Count 307 MPV 10.3 PT INR Sodium 140 Potassium 3.7 Chloride 105 Carbon Dioxide 31 Anion Gap 9 L BUN 21 Creatinine 1.3 Est GFR ( Amer) > 60 Est GFR (Non-Af Amer) 52 POC Glucose (mg/dL) 94 Random Glucose 101 Calcium 8.4 Total Bilirubin 0.6 AST 41 ALT 31 Alkaline Phosphatase 92 Total Protein 6.5 Albumin 3.1 Globulin 3.4 Albumin/Globulin Ratio 0.9 L 09/06/18 06:47 WBC RBC Hgb Hct MCV MCH MCHC RDW Plt Count MPV PT 23.2 H INR 1.99 Sodium Potassium Chloride Carbon Dioxide Anion Gap BUN Creatinine Est GFR ( Amer) Est GFR (Non-Af Amer) POC Glucose (mg/dL) Random Glucose Calcium Total Bilirubin AST ALT Alkaline Phosphatase Total Protein Albumin Globulin Albumin/Globulin Ratio Assessment & Plan - Assessment and Plan (Free Text) Assessment: 88M with pmhx of Nish on coumadin, CKD, pacemaker, aortic insufficiency seen and evaluated for elongated dystrophic nails x 10 Plan: Patient seen and evaluated Discussed in detail with Dr. De Los Santos Afebrile, absent leukocytosis Nails sharply cut with nail nipper x10 without incident, patient tolerated well Lotion applied to toes and feet Podiatry to sign off Thank you for consult - Date & Time Date: 09/06/18 Time: 08:43 <Alex De Los Santos - Last Filed: 09/06/18 10:21> Meds - Medications Medications: Current Medications Acetaminophen (Tylenol 325mg Tab) 650 mg PO Q6H PRN; Protocol PRN Reason: Fever >100.4 F Aspirin (Aspirin Chewable) 81 mg PO 0800 [facility]; Protocol Last Admin: 09/06/18 08:13 Dose: 81 mg Dextrose (Dextrose 50% Inj) 50 ml IVP PRN PRN; Protocol PRN Reason: Hypoglycemia Furosemide (Lasix) 40 mg PO 0600 [facility]; Protocol Last Admin: 09/06/18 06:39 Dose: 40 mg Insulin Human Regular (Humulin R Med) 0 units SC ACHS [facility]; Protocol Last Admin: 09/06/18 06:38 Dose: Not Given Metoprolol Tartrate (Lopressor) 25 mg PO 0800,1800 [facility]; Protocol Last Admin: 09/06/18 08:13 Dose: 25 mg Tramadol HCl (Ultram) 50 mg PO TID PRN; Protocol PRN Reason: Pain, moderate (4-7) Last Admin: 09/06/18 00:16 Dose: 50 mg Warfarin Sodium (Coumadin) 5 mg PO 1800 [facility]; Protocol Last Admin: 09/05/18 18:00 Dose: 5 mg Results - Vital Signs Recent Vital Signs: Last Vital Signs Temp 98.1 F 09/05/18 16:00 Pulse 75 09/06/18 08:13 Resp 18 09/05/18 16:00 BP 152/71 H 09/06/18 08:13 Pulse Ox 96 09/05/18 16:00 - Labs Result Diagrams: 09/06/18 06:47 09/06/18 06:47 Labs: Laboratory Results - last 24 hr 09/05/18 09/05/18 09/05/18 11:33 17:00 21:27 WBC RBC Hgb Hct MCV MCH MCHC RDW Plt Count MPV PT INR Sodium Potassium Chloride Carbon Dioxide Anion Gap BUN Creatinine Est GFR ( Amer) Est GFR (Non-Af Amer) POC Glucose (mg/dL) 95 110 129 H Random Glucose Calcium Total Bilirubin AST ALT Alkaline Phosphatase Total Protein Albumin Globulin Albumin/Globulin Ratio 09/06/18 09/06/18 09/06/18 05:23 06:47 06:47 WBC 9.7 RBC 3.09 L Hgb 10.0 L Hct 31.3 L MCV 101.3 MCH 32.4 MCHC 31.9 RDW 16.7 H Plt Count 307 MPV 10.3 PT INR Sodium 140 Potassium 3.7 Chloride 105 Carbon Dioxide 31 Anion Gap 9 L BUN 21 Creatinine 1.3 Est GFR ( Amer) > 60 Est GFR (Non-Af Amer) 52 POC Glucose (mg/dL) 94 Random Glucose 101 Calcium 8.4 Total Bilirubin 0.6 AST 41 ALT 31 Alkaline Phosphatase 92 Total Protein 6.5 Albumin 3.1 Globulin 3.4 Albumin/Globulin Ratio 0.9 L 09/06/18 06:47 WBC RBC Hgb Hct MCV MCH MCHC RDW Plt Count MPV PT 23.2 H INR 1.99 Sodium Potassium Chloride Carbon Dioxide Anion Gap BUN Creatinine Est GFR ( Amer) Est GFR (Non-Af Amer) POC Glucose (mg/dL) Random Glucose Calcium Total Bilirubin AST ALT Alkaline Phosphatase Total Protein Albumin Globulin Albumin/Globulin Ratio Attending/Attestation - Attestation I have personally seen and examined this patient.: Yes I have fully participated in the care of the patient.: Yes I have reviewed all pertinent clinical information: Yes
--- NOTE | 2018-09-06 11:09 | PN ---
DATE: 09/06/2018 SUBJECTIVE: I saw manual resting in bed in the Transitional Care Unit. He is doing well. He is feeling well. He is eating well. Going to the bathroom well. The pain is less. He is walking better, good spirits. MEDICATIONS: He is on aspirin, Coumadin, dextrose, insulin, Lasix, Lopressor, Tylenol, Ultram. OBJECTIVE: VITAL SIGNS: He has a 98.1 temperature, 68 pulse, 152/71 blood pressure, 18 respiratory rate, 96% sat on room air. HEENT: Head is atraumatic, normocephalic. HEART: Regular rate. LUNGS: Decreased breath sounds, but clear. ABDOMEN: Soft, nontender. Positive bowel sounds. It is healing in the right upper quadrant . He is doing better. He is moving his bowels, nontender. EXTREMITIES: No edema. LABORATORY DATA: He has a 9.7 white count, 10 hemoglobin, 31.1 hematocrit with 207 platelets. He has a 140 sodium, potassium 3.7, BUN is 21, creatinine 1.3, GFR is 52, sugar is 101, calcium is 8.4, total bili is 0.6, AST is 41, ALT is 31, alk phos is 92, total protein 6.5. IMPRESSION AND PLAN: Overall he is doing much better. He is status post open cholecystectomy. He is doing well. Continue with physical therapy. We will check his labs. Dieter Griggs DO [facility]
--- NOTE | 2018-09-06 16:08 | CP.PCM.PN ---
Subjective - Date & Time of Evaluation Date of Evaluation: 09/06/18 Time of Evaluation: 15:50 - Subjective Subjective: Comfortable, no fevers, no abdominal pain, no nausea, no diarrhea. No SOB at rest. Objective - Vital Signs/Intake and Output Vital Signs (last 24 hours): Temp Pulse Resp BP Pulse Ox 98.1 F 75 18 152/71 H 96 09/05/18 16:00 09/06/18 08:13 09/05/18 16:00 09/06/18 08:13 09/05/18 16:00 - Medications Medications: Current Medications Acetaminophen (Tylenol 325mg Tab) 650 mg PO Q6H PRN; Protocol PRN Reason: Fever >100.4 F Last Admin: 09/06/18 12:05 Dose: 650 mg Aspirin (Aspirin Chewable) 81 mg PO 0800 [facility]; Protocol Last Admin: 09/06/18 08:13 Dose: 81 mg Dextrose (Dextrose 50% Inj) 50 ml IVP PRN PRN; Protocol PRN Reason: Hypoglycemia Furosemide (Lasix) 40 mg PO 0600 [facility]; Protocol Last Admin: 09/06/18 06:39 Dose: 40 mg Insulin Human Regular (Humulin R Med) 0 units SC ACHS [facility]; Protocol Last Admin: 09/06/18 11:46 Dose: Not Given Metoprolol Tartrate (Lopressor) 25 mg PO 0800,1800 [facility]; Protocol Last Admin: 09/06/18 08:13 Dose: 25 mg Tramadol HCl (Ultram) 50 mg PO TID PRN; Protocol PRN Reason: Pain, moderate (4-7) Last Admin: 09/06/18 00:16 Dose: 50 mg Warfarin Sodium (Coumadin) 5 mg PO 1800 [facility]; Protocol Last Admin: 09/05/18 18:00 Dose: 5 mg - Labs Labs: 09/06/18 06:47 09/06/18 06:47 PT 23.2 SECONDS (9.4-12.5) H 09/06/18 06:47 INR 1.99 09/06/18 06:47 - Constitutional Appears: Chronically Ill - Head Exam Head Exam: NORMAL INSPECTION - Respiratory Exam Respiratory Exam: Decreased Breath Sounds - Cardiovascular Exam Cardiovascular Exam: +S1, +S2 - GI/Abdominal Exam GI & Abdominal Exam: Soft. absent: Tenderness Assessment and Plan - Assessment and Plan (Free Text) Plan: Assessment right middle lobe HCAP acute cholecystitis S/P cholecystectomy history of sepsis due to right sided HCAP chronic renal failure HTN hypothyroidism S/P pacemaker placement Plan completed at least 5 days of Zosyn - will discontinue and monitor off antib iotics since he is still at risk for nosocomial infections
[2018-09-07] MEDS: Insulin Reg-MEDIUM-Coverage SC SCH ×4 (06:52→21:37)
[2018-09-07 08:35] LABS: HEMOGLOBIN 10.2 g/dL (14.0-18.0); MEAN CELL VOLUME 101.9 fl (80.0-105.0); MEAN CORPUSCULAR HEMOGLOBIN 32.5 pg (25.0-35.0); MEAN CORPUSCULAR HGB CONC 31.9 g/dl (31.0-37.0); MEAN PLATELET VOLUME 10.4 fl (7.0-11.0); RBC 3.14 10^6/uL (3.5-6.1); RED CELL DISTRIBUTION WIDTH 17.1 % (11.5-14.5); WHITE BLOOD COUNT 9.7 10^3/uL (4.5-11.0)
[2018-09-07 08:46] LABS: INR 2.02; PROTHROMBIN TIME 23.6 SECONDS (9.4-12.5)
[2018-09-07 09:18] LABS: ALBUMIN 3.4 g/dL (3.0-4.8); ALT/SGPT 43 U/L (7-56); AST/SGOT 53 U/L (17-59); BLOOD UREA NITROGEN 29 mg/dL (7-21); CALCIUM 8.6 mg/dL (8.4-10.5); GFR NON-AFRICAN AMERICAN 52
--- NOTE | 2018-09-07 12:50 | PN ---
DATE: 09/07/2018 SUBJECTIVE: I saw him in the TCU resting comfortably in bed. He is eating well, going to the bathroom well. No chest pain or shortness breath. No abdominal pain. He had abdominal cholecystectomy open and he is doing much better. He is walking better, eating better. Going to the bathroom overall improving. He is happy. OBJECTIVE: VITAL SIGNS: He has got 98.1 temperature, 61 pulse, 114/57 blood pressure, 18 respiratory rate, 96% O2 sat on room air. HEENT: Head is atraumatic, normocephalic. HEART: Regular rate. LUNGS: Clear to auscultation. ABDOMEN: Soft, nontender. Positive bowel sounds. No guarding, no rebound, no CVA tenderness. EXTREMITIES: No edema. He is being seen by Infectious Disease and Podiatry. Overall he is improving. I am glad he is getting physical therapy. If get steady before he goes home. He did have a right pneumonia, acute cholecystitis status post cholecystectomy and hopefully he will continue to improve, he is on antibiotics. We will check his labs tomorrow. Dieter Griggs DO MTDD
--- NOTE | 2018-09-07 14:28 | CP.PCM.PN ---
Subjective - Date & Time of Evaluation Date of Evaluation: 09/07/18 Time of Evaluation: 11:00 - Subjective Subjective: Comfortable, no abdominal pain, no fevers. Objective - Vital Signs/Intake and Output Vital Signs (last 24 hours): Temp Pulse Resp BP Pulse Ox 98.1 F 75 18 152/71 H 96 09/05/18 16:00 09/06/18 08:13 09/05/18 16:00 09/06/18 08:13 09/05/18 16:00 - Medications Medications: Current Medications Acetaminophen (Tylenol 325mg Tab) 650 mg PO Q6H PRN; Protocol PRN Reason: Fever >100.4 F Last Admin: 09/06/18 12:05 Dose: 650 mg Aspirin (Aspirin Chewable) 81 mg PO 0800 [facility]; Protocol Last Admin: 09/06/18 08:13 Dose: 81 mg Dextrose (Dextrose 50% Inj) 50 ml IVP PRN PRN; Protocol PRN Reason: Hypoglycemia Furosemide (Lasix) 40 mg PO 0600 [facility]; Protocol Last Admin: 09/06/18 06:39 Dose: 40 mg Insulin Human Regular (Humulin R Med) 0 units SC ACHS [facility]; Protocol Last Admin: 09/06/18 11:46 Dose: Not Given Metoprolol Tartrate (Lopressor) 25 mg PO 0800,1800 [facility]; Protocol Last Admin: 09/06/18 08:13 Dose: 25 mg Tramadol HCl (Ultram) 50 mg PO TID PRN; Protocol PRN Reason: Pain, moderate (4-7) Last Admin: 09/06/18 00:16 Dose: 50 mg Warfarin Sodium (Coumadin) 5 mg PO 1800 [facility]; Protocol Last Admin: 09/05/18 18:00 Dose: 5 mg - Labs Labs: 09/06/18 06:47 09/06/18 06:47 PT 23.2 SECONDS (9.4-12.5) H 09/06/18 06:47 INR 1.99 09/06/18 06:47 - Constitutional Appears: Chronically Ill - Head Exam Head Exam: NORMAL INSPECTION - Respiratory Exam Respiratory Exam: Decreased Breath Sounds - Cardiovascular Exam Cardiovascular Exam: +S1, +S2 - GI/Abdominal Exam GI & Abdominal Exam: Soft. absent: Tenderness Assessment and Plan - Assessment and Plan (Free Text) Plan: Assessment right middle lobe HCAP acute cholecystitis S/P cholecystectomy history of sepsis due to right sided HCAP chronic renal failure HTN hypothyroidism S/P pacemaker placement Plan completed at least 5 days of Zosyn - will discontinue and monitor off antibiotics since he is still at risk for hospital-acquired infections
[2018-09-08 08:25] LABS: HEMOGLOBIN 10.6 g/dL (14.0-18.0); MEAN CELL VOLUME 102.2 fl (80.0-105.0); MEAN CORPUSCULAR HEMOGLOBIN 33.5 pg (25.0-35.0); MEAN CORPUSCULAR HGB CONC 32.8 g/dl (31.0-37.0); MEAN PLATELET VOLUME 10.4 fl (7.0-11.0); RBC 3.16 10^6/uL (3.5-6.1); RED CELL DISTRIBUTION WIDTH 17.2 % (11.5-14.5); WHITE BLOOD COUNT 11.4 10^3/uL (4.5-11.0)
[2018-09-08] MEDS: Insulin Reg-MEDIUM-Coverage SC SCH ×4 (08:48→22:16)
[2018-09-08 09:19] LABS: ALBUMIN 3.6 g/dL (3.0-4.8); CALCIUM 8.7 mg/dL (8.4-10.5)
--- NOTE | 2018-09-08 13:14 | CP.PCM.PN ---
Subjective - Date & Time of Evaluation Date of Evaluation: 09/08/18 Time of Evaluation: 10:05 - Subjective Subjective: No fevers, no abdominal pain, not in distress. Objective - Vital Signs/Intake and Output Vital Signs (last 24 hours): Temp Pulse Resp BP Pulse Ox 98.1 F 61 18 114/57 L 96 09/07/18 10:00 09/07/18 10:00 09/07/18 10:00 09/07/18 10:00 09/07/18 10:00 - Medications Medications: Current Medications Acetaminophen (Tylenol 325mg Tab) 650 mg PO Q6H PRN; Protocol PRN Reason: Fever >100.4 F Last Admin: 09/06/18 12:05 Dose: 650 mg Aspirin (Aspirin Chewable) 81 mg PO 0800 [facility]; Protocol Last Admin: 09/07/18 08:08 Dose: 81 mg Dextrose (Dextrose 50% Inj) 50 ml IVP PRN PRN; Protocol PRN Reason: Hypoglycemia Furosemide (Lasix) 40 mg PO 0600 [facility]; Protocol Last Admin: 09/07/18 06:20 Dose: 40 mg Insulin Human Regular (Humulin R Med) 0 units SC ACHS [facility]; Protocol Last Admin: 09/07/18 11:00 Dose: Not Given Metoprolol Tartrate (Lopressor) 25 mg PO 0800,1800 [facility]; Protocol Last Admin: 09/07/18 08:09 Dose: 25 mg Tramadol HCl (Ultram) 50 mg PO TID PRN; Protocol PRN Reason: Pain, moderate (4-7) Last Admin: 09/06/18 00:16 Dose: 50 mg Warfarin Sodium (Coumadin) 5 mg PO 1800 [facility]; Protocol Last Admin: 09/06/18 17:18 Dose: 5 mg - Labs Labs: 09/07/18 08:20 09/07/18 08:20 PT 23.6 SECONDS (9.4-12.5) H 09/07/18 08:20 INR 2.02 09/07/18 08:20 - Constitutional Appears: Chronically Ill - Head Exam Head Exam: NORMAL INSPECTION - Neck Exam Neck Exam: absent: Meningismus - Respiratory Exam Respiratory Exam: Decreased Breath Sounds - Cardiovascular Exam Cardiovascular Exam: +S1, +S2 - GI/Abdominal Exam GI & Abdominal Exam: Soft. absent: Tenderness Assessment and Plan - Assessment and Plan (Free Text) Plan: Assessment S/P right middle lobe HCAP acute cholecystitis S/P cholecystectomy history of sepsis due to right sided HCAP chronic renal failure HTN hypothyroidism S/P pacemaker placement Plan completed at least 5 days of Zosyn - will discontinue and monitor off antibiotics since he is still at risk for healthcare-associated infections
--- NOTE | 2018-09-08 15:34 | PN ---
DATE: 09/08/2018 SUBJECTIVE: I saw him sitting out of bed to chair today. He is in good spirits. He is eating well, going to the bathroom well. He has no chest pain, no shortness of breath, no abdominal pain. He is in good spirits. He is ambulating well with physical therapy. He is improving, he is telling me. MEDICATIONS: He is on aspirin; Coumadin; dextrose, which I think I am going to stop; Lasix; Lopressor; Tylenol and Ultram. OBJECTIVE: VITAL SIGNS: He has a 97.5 temperature, 66 pulse, 105/56 blood pressure, 18 respiratory rate, 96% O2 sat on room air. HEENT: Head is atraumatic, normocephalic. HEART: Regular rate. LUNGS: Clear to auscultation. ABDOMEN: Soft, nontender. Positive bowel sounds. No guarding, no rebound, no CVA tenderness even though the surgical site is completely nontender. Surgery has to come in and finish with their clementina in their care. EXTREMITIES: Have no edema. He is in good spirits. MEDICATIONS: He is on aspirin and Coumadin. LABORATORY DATA: I am going to check the INR level. He has 11.4 white count, hemoglobin is 10.6, hematocrit 32.3, platelets of 372. INR is 2.02. I will check one tomorrow the INR. Sodium is 139, potassium 4.1, BUN 34, creatinine 1.4, GFR is 48, sugar is 112, calcium is 8.7. Total bili is 0.6, AST is 71, ALT is 52, alk phos 114, total protein 7.1. IMPRESSION AND PLAN: He is being seen by Infectious Disease. He had a right lower middle lobe pneumonia, acute cholecystitis with cholecystectomy, hypertension and he is improving. Dieter Griggs DO
[2018-09-09] MEDS: Insulin Reg-MEDIUM-Coverage SC SCH ×4 (06:57→22:00)
[2018-09-09 07:05] LABS: INR 1.71; PROTHROMBIN TIME 19.9 SECONDS (9.4-12.5)
[2018-09-09 07:06] LABS: HEMOGLOBIN 10.1 g/dL (14.0-18.0); MEAN CELL VOLUME 101.9 fl (80.0-105.0); MEAN CORPUSCULAR HEMOGLOBIN 32.7 pg (25.0-35.0); MEAN CORPUSCULAR HGB CONC 32.1 g/dl (31.0-37.0); MEAN PLATELET VOLUME 10.9 fl (7.0-11.0); RBC 3.09 10^6/uL (3.5-6.1); RED CELL DISTRIBUTION WIDTH 17.6 % (11.5-14.5); WHITE BLOOD COUNT 9.9 10^3/uL (4.5-11.0)
[2018-09-09 07:36] LABS: ALBUMIN 3.6 g/dL (3.0-4.8); CALCIUM 9.2 mg/dL (8.4-10.5)
--- NOTE | 2018-09-09 12:51 | PN ---
DATE: 09/09/2018 SUBJECTIVE: I saw Ricardo in the room. He is doing well. He is feeling well, eating well, and going to the bathroom well with no complaints. MEDICATIONS: He is on aspirin, Coumadin, Dextrose, insulin, Lasix, Lopressor, Tylenol, and Ultram. PHYSICAL EXAMINATION: GENERAL: He is in good shape. He is eating well, going to the bathroom well. VITAL SIGNS: 97.5 temperature, 66 pulse, 147/64 blood pressure. HEAD: Atraumatic, normocephalic. HEART: Regular rate. LUNGS: Clear to auscultation. ABDOMEN: Soft. EXTREMITIES: No edema. LABORATORY DATA: He has 9.9 white count, 10.1 hemoglobin, 31.5 hematocrit with 387 platelets. He has sodium 139, potassium 5, BUN is 34, creatinine 1.4. GFR is 48. Sugar is 104, calcium 9.2. AST is 79, ALT is 63, alk phos 110. ASSESSMENT AND PLAN: Overall, he is doing quite well. He had acute parker with surgery, atrial fibrillation, hypertension, and he is definitely improving. Also, had pneumonia. Dieter Griggs DO MTDD
--- NOTE | 2018-09-09 13:28 | CP.PCM.PN ---
<Adriano Jc - Last Filed: 09/09/18 13:57> Subjective - Date & Time of Evaluation Date of Evaluation: 09/09/18 Time of Evaluation: 09:40 - Subjective Subjective: Infectious disease progress note: Pt seen and examined at bedside. No acute events overnight. No complaints or pain at this time. 12 Point ROS performed and neg other than stated above. Objective - Vital Signs/Intake and Output Vital Signs (last 24 hours): Temp Pulse Resp BP Pulse Ox 97.5 F L 64 18 147/64 96 09/08/18 10:00 09/09/18 08:00 09/08/18 10:00 09/09/18 08:00 09/08/18 10:00 - Medications Medications: Current Medications Acetaminophen (Tylenol 325mg Tab) 650 mg PO Q6H PRN; Protocol PRN Reason: Fever >100.4 F Last Admin: 09/06/18 12:05 Dose: 650 mg Aspirin (Aspirin Chewable) 81 mg PO 0800 [facility]; Protocol Last Admin: 09/09/18 08:00 Dose: 81 mg Dextrose (Dextrose 50% Inj) 50 ml IVP PRN PRN; Protocol PRN Reason: Hypoglycemia Furosemide (Lasix) 40 mg PO 0600 [facility]; Protocol Last Admin: 09/09/18 05:27 Dose: 40 mg Insulin Human Regular (Humulin R Med) 0 units SC ACHS [facility]; Protocol Last Admin: 09/09/18 11:44 Dose: Not Given Metoprolol Tartrate (Lopressor) 25 mg PO 0800,1800 [facility]; Protocol Last Admin: 09/09/18 08:00 Dose: 25 mg Tramadol HCl (Ultram) 50 mg PO TID PRN; Protocol PRN Reason: Pain, moderate (4-7) Last Admin: 09/06/18 00:16 Dose: 50 mg Warfarin Sodium (Coumadin) 5 mg PO 1800 [facility]; Protocol Last Admin: 09/08/18 17:19 Dose: 5 mg - Labs Labs: 09/09/18 06:30 09/09/18 06:30 PT 19.9 SECONDS (9.4-12.5) H 09/09/18 06:30 INR 1.71 09/09/18 06:30 - Constitutional Appears: No Acute Distress - Head Exam Head Exam: ATRAUMATIC, NORMOCEPHALIC - Eye Exam Eye Exam: EOMI - ENT Exam ENT Exam: Mucous Membranes Moist - Respiratory Exam Respiratory Exam: Clear to Ausculation Bilateral (no r/r/w) - Cardiovascular Exam Cardiovascular Exam: REGULAR RHYTHM, +S1, +S2 - GI/Abdominal Exam GI & Abdominal Exam: Soft, Normal Bowel Sounds - Extremities Exam Additional comments: no lower ext edema - Neurological Exam Neurological Exam: Alert, Awake - Psychiatric Exam Psychiatric exam: Normal Mood - Skin Skin Exam: Dry, Warm Assessment and Plan - Assessment and Plan (Free Text) Assessment: 88 y/o male with PMHx of A. Fib on coumadin, pacemaker, aortic insufficiency, CKD, s/p lap converted to open cholecystectomy presents with [employer] and episode of unresponsiveness while in the TCU. Found to have a R middle lobe infiltrate / hospital acquired pneumonia. - CTAP showed R middle lobe pneumonia - Completed 4 days of Vanc and Zosyn. Cont to monitor off of abx. - Septic work up neg thus far - Cont to monitor for changes Case and plan was reviewed and discussed with Dr Kennedy. <Valentin Kennedy - Last Filed: 09/09/18 14:08> Objective - Vital Signs/Intake and Output Vital Signs (last 24 hours): Temp Pulse Resp BP Pulse Ox 97.5 F L 64 18 147/64 96 09/08/18 10:00 09/09/18 08:00 09/08/18 10:00 09/09/18 08:00 09/08/18 10:00 - Medications Medications: Current Medications Acetaminophen (Tylenol 325mg Tab) 650 mg PO Q6H PRN; Protocol PRN Reason: Fever >100.4 F Last Admin: 09/06/18 12:05 Dose: 650 mg Aspirin (Aspirin Chewable) 81 mg PO 0800 [facility]; Protocol Last Admin: 09/09/18 08:00 Dose: 81 mg Dextrose (Dextrose 50% Inj) 50 ml IVP PRN PRN; Protocol PRN Reason: Hypoglycemia Furosemide (Lasix) 40 mg PO 0600 [facility]; Protocol Last Admin: 09/09/18 05:27 Dose: 40 mg Insulin Human Regular (Humulin R Med) 0 units SC ACHS [facility]; Protocol Last Admin: 09/09/18 11:44 Dose: Not Given Metoprolol Tartrate (Lopressor) 25 mg PO 0800,1800 [facility]; Protocol Last Admin: 09/09/18 08:00 Dose: 25 mg Tramadol HCl (Ultram) 50 mg PO TID PRN; Protocol PRN Reason: Pain, moderate (4-7) Last Admin: 09/06/18 00:16 Dose: 50 mg Warfarin Sodium (Coumadin) 5 mg PO 1800 [facility]; Protocol Last Admin: 09/08/18 17:19 Dose: 5 mg - Labs Labs: 09/09/18 06:30 09/09/18 06:30 PT 19.9 SECONDS (9.4-12.5) H 09/09/18 06:30 INR 1.71 09/09/18 06:30 Assessment and Plan - Assessment and Plan (Free Text) Assessment: Infectious diseases Attending Physician Attestation Patient seen and examined, discussed with medical aides teacher. I have reviewed the patient's history of present illness, past medical, social, personal and family histories, pertinent physical exam findings, course so far in this hospital admission, pertinent laboratory and imaging results. I agree with the above findings, assessment and plan. In addition, continue to monitor off antibiotics - patient is S/P treatment of right sided HCAP as well as acute cholecystitis S/P cholecystectomy.
[2018-09-10 06:47] LABS: HEMOGLOBIN 11.1 g/dL (14.0-18.0); MEAN CELL VOLUME 102.4 fl (80.0-105.0); MEAN CORPUSCULAR HEMOGLOBIN 33.1 pg (25.0-35.0); MEAN CORPUSCULAR HGB CONC 32.4 g/dl (31.0-37.0); MEAN PLATELET VOLUME 10.8 fl (7.0-11.0); RBC 3.35 10^6/uL (3.5-6.1); RED CELL DISTRIBUTION WIDTH 17.8 % (11.5-14.5); WHITE BLOOD COUNT 12.2 10^3/uL (4.5-11.0)
[2018-09-10 07:04] LABS: CALCIUM 9.1 mg/dL (8.4-10.5)
[2018-09-10] MEDS: Insulin Reg-MEDIUM-Coverage SC SCH ×4 (08:04→21:26)
--- NOTE | 2018-09-10 08:16 | CP.PCM.PN ---
<Adriano Jc - Last Filed: 09/10/18 12:36> Subjective - Date & Time of Evaluation Date of Evaluation: 09/10/18 Time of Evaluation: 07:10 - Subjective Subjective: Infectious disease progress note: Pt seen and examined at bedside. No acute events overnight. Denies any abd pain, n/v/d. No other complaints. 12 Point ROS performed and neg other than stated above. Objective - Vital Signs/Intake and Output Vital Signs (last 24 hours): Temp Pulse Resp BP Pulse Ox 97.5 F L 77 20 167/76 H 96 09/08/18 10:00 09/10/18 07:00 09/09/18 22:00 09/10/18 07:00 09/08/18 10:00 - Medications Medications: Current Medications Acetaminophen (Tylenol 325mg Tab) 650 mg PO Q6H PRN; Protocol PRN Reason: Fever >100.4 F Last Admin: 09/06/18 12:05 Dose: 650 mg Aspirin (Aspirin Chewable) 81 mg PO 0800 [facility]; Protocol Last Admin: 09/10/18 08:04 Dose: 81 mg Dextrose (Dextrose 50% Inj) 50 ml IVP PRN PRN; Protocol PRN Reason: Hypoglycemia Furosemide (Lasix) 40 mg PO 0600 [facility]; Protocol Last Admin: 09/10/18 05:05 Dose: 40 mg Insulin Human Regular (Humulin R Med) 0 units SC ACHS [facility]; Protocol Last Admin: 09/10/18 08:04 Dose: Not Given Metoprolol Tartrate (Lopressor) 25 mg PO 0800,1800 [facility]; Protocol Last Admin: 09/10/18 07:00 Dose: 25 mg Tramadol HCl (Ultram) 50 mg PO TID PRN; Protocol PRN Reason: Pain, moderate (4-7) Last Admin: 09/09/18 20:07 Dose: 50 mg Warfarin Sodium (Coumadin) 5 mg PO 1800 [facility]; Protocol Last Admin: 09/09/18 17:16 Dose: 5 mg - Labs Labs: 09/10/18 06:15 09/10/18 06:15 PT 19.9 SECONDS (9.4-12.5) H 09/09/18 06:30 INR 1.71 09/09/18 06:30 - Constitutional Appears: No Acute Distress - Head Exam Head Exam: ATRAUMATIC, NORMOCEPHALIC - Eye Exam Eye Exam: EOMI - ENT Exam ENT Exam: Mucous Membranes Moist - Respiratory Exam Respiratory Exam: Clear to Ausculation Bilateral (no r/r/w) - Cardiovascular Exam Cardiovascular Exam: REGULAR RHYTHM, +S1, +S2 - GI/Abdominal Exam GI & Abdominal Exam: Soft, Normal Bowel Sounds - Extremities Exam Extremities Exam: absent: Calf Tenderness, Pedal Edema - Neurological Exam Neurological Exam: Alert, Awake, Oriented x3 - Psychiatric Exam Psychiatric exam: Normal Mood - Skin Skin Exam: Dry, Warm Assessment and Plan - Assessment and Plan (Free Text) Assessment: 88 y/o male with PMHx of A. 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 Found to have a R middle lobe infiltrate / hospital acquired pneumonia. In the TCU for weakness and rehab - Monitor off abx - Completed 4 days of Vanc and Zosyn. - Septic work up neg thus far - Cont to monitor for changes Case and plan was reviewed and discussed with Dr Kennedy. <Valentin Kennedy - Last Filed: 09/10/18 14:42> Objective - Vital Signs/Intake and Output Vital Signs (last 24 hours): Temp Pulse Resp BP Pulse Ox 97.5 F L 77 20 167/76 H 96 09/08/18 10:00 09/10/18 07:00 09/09/18 22:00 09/10/18 07:00 09/08/18 10:00 - Medications Medications: Current Medications Acetaminophen (Tylenol 325mg Tab) 650 mg PO Q6H PRN; Protocol PRN Reason: Fever >100.4 F Last Admin: 09/06/18 12:05 Dose: 650 mg Aspirin (Aspirin Chewable) 81 mg PO 0800 [facility]; Protocol Last Admin: 09/10/18 08:04 Dose: 81 mg Dextrose (Dextrose 50% Inj) 50 ml IVP PRN PRN; Protocol PRN Reason: Hypoglycemia Furosemide (Lasix) 40 mg PO 0600 [facility]; Protocol Last Admin: 09/10/18 05:05 Dose: 40 mg Insulin Human Regular (Humulin R Med) 0 units SC ACHS [facility]; Protocol Last Admin: 09/10/18 12:19 Dose: Not Given Metoprolol Tartrate (Lopressor) 25 mg PO 0800,1800 [facility]; Protocol Last Admin: 09/10/18 07:00 Dose: 25 mg Tramadol HCl (Ultram) 50 mg PO TID PRN; Protocol PRN Reason: Pain, moderate (4-7) Last Admin: 09/09/18 20:07 Dose: 50 mg Warfarin Sodium (Coumadin) 5 mg PO 1800 [facility]; Protocol Last Admin: 09/09/18 17:16 Dose: 5 mg - Labs Labs: 09/10/18 06:15 09/10/18 06:15 PT 19.9 SECONDS (9.4-12.5) H 09/09/18 06:30 INR 1.71 09/09/18 06:30 Assessment and Plan - Assessment and Plan (Free Text) Assessment: Infectious diseases Attending Physician Attestation Patient seen and examined, discussed with medical records supervisor. I have reviewed the patient's history of present illness, past medical, social, personal and family histories, pertinent physical exam findings, course so far in this hospital admission, pertinent laboratory and imaging results. I agree with the above findings, assessment and plan. In addition, continue to monitor off antibiotics - patient is S/P treatment of right HCAP and acute cholecystitis S/P cholectystectomy.
--- NOTE | 2018-09-10 11:26 | PN ---
DATE: 09/10/2018 SUBJECTIVE: He is resting comfortably in bed. He is eating his breakfast. He is walking well. He still has some clementina in where he had his open cholecystectomy. He happened to get surgery and to evaluate that, may be they could remove the clementina before he gets discharged. He is on aspirin, Coumadin, dextrose, insulin, Lasix, Lopressor, Tylenol and Ultram. He is comfortable in bed. He is eating well. No chest pain or shortness of breath. No abdominal pain. He is walking better, going to the bathroom well. PHYSICAL EXAMINATION: VITAL SIGNS: He has a 97.5 temperature, 66 pulse, 130/70 blood pressure, 18 respiratory rate, 96% O2 sat on room air. HEAD: Atraumatic, normocephalic. He is in good spirits, he is smiling. HEART: Regular rate. LUNGS: Clear to auscultation. ABDOMEN: Soft, nontender. Positive bowel sounds. EXTREMITIES: No edema. He is walking better. He is going to the bathroom better. No abdominal pain. LABORATORY DATA: He does have 12.2 white count, 11.1 hemoglobin, 34.3 hematocrit with 442 platelets. INR 1.71, he is on Coumadin. Sodium 140, potassium 4.6, BUN 28, creatinine 1.4, GFR is 48, sugar is 124, calcium is 9.1, total bili is 0.7, AST is 92, ALT is 62, alk phos 122, total protein 7.9. He is being seen by Infectious Disease, Podiatry. Overall, he is definitely improved. Continue aggressive treatment and care. Dieter Griggs DO
[2018-09-11 07:14] LABS: HEMOGLOBIN 9.3 g/dL (14.0-18.0); MEAN CELL VOLUME 102.9 fl (80.0-105.0); MEAN CORPUSCULAR HEMOGLOBIN 33.3 pg (25.0-35.0); MEAN CORPUSCULAR HGB CONC 32.4 g/dl (31.0-37.0); MEAN PLATELET VOLUME 10.4 fl (7.0-11.0); RBC 2.79 10^6/uL (3.5-6.1); RED CELL DISTRIBUTION WIDTH 18.1 % (11.5-14.5); WHITE BLOOD COUNT 10.8 10^3/uL (4.5-11.0)
[2018-09-11 07:37] LABS: ALBUMIN 3.3 g/dL (3.0-4.8); CALCIUM 8.5 mg/dL (8.4-10.5)
--- NOTE | 2018-09-11 09:37 | CP.PCM.PN ---
<Adriano Jc - Last Filed: 09/11/18 12:28> Subjective - Date & Time of Evaluation Date of Evaluation: 09/11/18 Time of Evaluation: 07:30 - Subjective Subjective: Infectious disease progress note: Pt seen and examined at bedside. No acute events overnight. States that he is doing well. NO complaints at this time. 12 Point ROS performed and neg other than stated above. Objective - Vital Signs/Intake and Output Vital Signs (last 24 hours): Temp Pulse Resp BP Pulse Ox 97.7 F 76 14 120/53 L 96 09/10/18 16:00 09/11/18 07:56 09/10/18 16:00 09/11/18 07:56 09/10/18 17:28 - Medications Medications: Current Medications Acetaminophen (Tylenol 325mg Tab) 650 mg PO Q6H PRN; Protocol PRN Reason: Fever >100.4 F Last Admin: 09/06/18 12:05 Dose: 650 mg Aspirin (Aspirin Chewable) 81 mg PO 0800 [facility]; Protocol Last Admin: 09/11/18 07:55 Dose: 81 mg Dextrose (Dextrose 50% Inj) 50 ml IVP PRN PRN; Protocol PRN Reason: Hypoglycemia Furosemide (Lasix) 40 mg PO 0600 [facility]; Protocol Last Admin: 09/10/18 05:05 Dose: 40 mg Insulin Human Regular (Humulin R Med) 0 units SC ACHS [facility]; Protocol Last Admin: 09/10/18 21:26 Dose: Not Given Metoprolol Tartrate (Lopressor) 25 mg PO 0800,1800 [facility]; Protocol Last Admin: 09/11/18 07:56 Dose: Not Given Tramadol HCl (Ultram) 50 mg PO TID PRN; Protocol PRN Reason: Pain, moderate (4-7) Last Admin: 09/10/18 22:03 Dose: 50 mg Warfarin Sodium (Coumadin) 5 mg PO 1800 [facility]; Protocol Last Admin: 09/10/18 17:14 Dose: 5 mg - Labs Labs: 09/11/18 06:40 09/11/18 06:40 PT 19.9 SECONDS (9.4-12.5) H 09/09/18 06:30 INR 1.71 09/09/18 06:30 - Constitutional Appears: No Acute Distress - Head Exam Head Exam: ATRAUMATIC, NORMOCEPHALIC - Eye Exam Eye Exam: EOMI, PERRL - ENT Exam ENT Exam: Mucous Membranes Moist - Respiratory Exam Respiratory Exam: Clear to Ausculation Bilateral (no r/r/w) - Cardiovascular Exam Cardiovascular Exam: REGULAR RHYTHM, +S1, +S2 - GI/Abdominal Exam GI & Abdominal Exam: Soft, Normal Bowel Sounds - Extremities Exam Extremities Exam: Normal Inspection - Neurological Exam Neurological Exam: Alert, Awake, Oriented x3 - Psychiatric Exam Psychiatric exam: Normal Mood - Skin Skin Exam: Dry, Warm Assessment and Plan - Assessment and Plan (Free Text) Assessment: 88 y/o male with PMHx of A. 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 Found to have a R middle lobe infiltrate / hospital acquired pneumonia. In the TCU for weakness and rehab - Cont to monitor off abx - Completed 4 days of Vanc and Zosyn. - Cont to monitor for changes Case and plan was reviewed and discussed with Dr Kennedy. <Valentin Kennedy - Last Filed: 09/11/18 17:17> Objective - Vital Signs/Intake and Output Vital Signs (last 24 hours): Temp Pulse Resp BP Pulse Ox 97.6 F 68 18 108/58 L 97 09/11/18 16:00 09/11/18 16:00 09/11/18 16:00 09/11/18 16:00 09/11/18 16:00 - Medications Medications: Current Medications Acetaminophen (Tylenol 325mg Tab) 650 mg PO Q6H PRN; Protocol PRN Reason: Fever >100.4 F Last Admin: 09/06/18 12:05 Dose: 650 mg Aspirin (Aspirin Chewable) 81 mg PO 0800 [facility]; Protocol Last Admin: 09/11/18 07:55 Dose: 81 mg Dextrose (Dextrose 50% Inj) 50 ml IVP PRN PRN; Protocol PRN Reason: Hypoglycemia Furosemide (Lasix) 40 mg PO 0600 [facility]; Protocol Last Admin: 09/10/18 05:05 Dose: 40 mg Insulin Human Regular (Humulin R Med) 0 units SC ACHS [facility]; Protocol Last Admin: 09/11/18 16:43 Dose: Not Given Metoprolol Tartrate (Lopressor) 25 mg PO 0800,1800 [facility]; Protocol Last Admin: 09/11/18 07:56 Dose: Not Given Tramadol HCl (Ultram) 50 mg PO TID PRN; Protocol PRN Reason: Pain, moderate (4-7) Last Admin: 09/11/18 13:57 Dose: 50 mg - Labs Labs: 09/11/18 15:16 09/11/18 06:40 PT 19.9 SECONDS (9.4-12.5) H 09/09/18 06:30 INR 1.71 09/09/18 06:30 Assessment and Plan - Assessment and Plan (Free Text) Assessment: Infectious diseases Attending Physician Attestation Patient seen and examined, discussed with site medical director. I have reviewed the patient's history of present illness, past medical, social, personal and family histories, pertinent physical exam findings, course so far in this hospital admission, pertinent laboratory and imaging results. I agree with the above f indings, assessment and plan. In addition, continue to monitor off antibiotics, patient is S/P treatment for RML HCAP and acute cholecystitis S/P cholecystectomy.
--- NOTE | 2018-09-11 10:39 | PN ---
DATE: 09/11/2018 SUBJECTIVE: The patient is resting comfortably in bed. All the clementina were taken out of his abdomen. He is eating well, walking well,going to the bathroom well comfortable. No chest pain or shortness breath or abdominal pain. He is on aspirin, Coumadin, dextrose, Lasix, Lopressor, Tylenol and Ultram. OBJECTIVE: VITAL SIGNS: He has a 97.7 temperature, 76 pulse, 120/53 blood pressure 14, respiratory rate, 96% O2 sat on room air. HEAD: Atraumatic, normocephalic. HEART: Regular rate. LUNGS: Clear to auscultation. ABDOMEN: Soft. Status post open cholecystectomy and doing well. EXTREMITIES: No edema. LABORATORY DATA: He has a 10.8 white count, better; 9.3 hemoglobin, it did drop a bit; hematocrit 20.7; platelets of 368. 1.71 INR. He is on Coumadin. 136 sodium, potassium 4.5, BUN is 42, creatinine 1.5, GFR is 44, sugar is 98,calcium is 8.5, total bili is 0.5. AST is 56, ALT is 51, alk phos 96, total protein 6.6. ASSESSMENT AND PLAN: He will be discharged tomorrow home. He is being seen by Infectious Disease. I think, overall he is improved. He had an open cholecystectomy, urine infection. He is doing better. Dieter Griggs DO
[2018-09-11] MEDS: Insulin Reg-MEDIUM-Coverage SC SCH ×3 (11:32→21:41)
[2018-09-11 15:19] LABS: BASO # 0.03 K/mm3 (0.0-2.0); BASO % 0.3 % (0.0-3.0); EOS # 0.1 (0.0-0.7); EOS % 0.8 % (1.5-5.0); GRAN # 8.61 (1.4-6.5); GRAN % 72.2 % (50.0-68.0); HEMOGLOBIN 9.1 g/dL (14.0-18.0); LYMPH # 1.9 (1.2-3.4); LYMPH % 15.7 % (22.0-35.0); MEAN CELL VOLUME 102.9 fl (80.0-105.0); MEAN CORPUSCULAR HEMOGLOBIN 33.3 pg (25.0-35.0); MEAN CORPUSCULAR HGB CONC 32.4 g/dl (31.0-37.0); MEAN PLATELET VOLUME 10.4 fl (7.0-11.0); MONO # 1.3 (0.1-0.6); RBC 2.73 10^6/uL (3.5-6.1); RED CELL DISTRIBUTION WIDTH 18.3 % (11.5-14.5); WHITE BLOOD COUNT 11.9 10^3/uL (4.5-11.0)
--- NOTE | 2018-09-11 15:53 | CP.PCM.CON ---
History of Present Illness - History of Present Illness History of Present Illness: Surgery: Dr. Lema CC: Post-op anemia HPI: 88M pmhx significant for A.Fib on coumadin, pacemaker, aortic insufficiency, and CKD originally presented to ED on 08/25 for cholecystits and underwent laparoscopy converted to open cholecystectomy on 08/27. Pt has been in TCU with tentative plans for D/C tomorrow. This morning's H/H dropped from 11.1 to 9.3. Repeat H/H in afternoon showed hgb of 9.1. Pt states that he feels tired/weak. He denies any CP/palpitations, no [place]/blurred vision. No SOB/cough. No complaints of abd pain. He has decreased appetite, but is tolerating diet. He states that his stools have been darker than usual. Denies any daljit blood in BM. No blood in urine. PMH: See drew PSH: RIH repair, open parker Meds: MAR reviewed NKDA SocialHx: denies tobacco, etoh recreational drug use Fhx: Non-contributory Review of Systems - Review of Systems All systems: reviewed and no additional remarkable complaints except (HPI) Past Patient History - Infectious Disease Hx of Infectious Diseases: None - Tetanus Immunizations Tetanus Immunization: Unknown - Past Social History Smoking Status: Former Smoker - CARDIAC Hx Cardiac Disorders: Yes Hx Congestive Heart Failure: Yes Hx Hypertension: Yes - PULMONARY Hx Respiratory Disorders: No - NEUROLOGICAL Hx Neurological Disorder: No - HEENT Hx HEENT Problems: No - RENAL Hx Chronic Kidney Disease: No - ENDOCRINE/METABOLIC Hx Hypothyroidism: Yes - HEMATOLOGICAL/ONCOLOGICAL Hx Blood Transfusions: No Hx Blood Transfusion Reaction: (NA) - INTEGUMENTARY Hx Dermatological Problems: No - MUSCULOSKELETAL/RHEUMATOLOGICAL Hx Falls: No - GASTROINTESTINAL Hx Gastrointestinal Disorders: No - GENITOURINARY/GYNECOLOGICAL Hx Reproductive Disorders: No - PSYCHIATRIC Hx Psychophysiologic Disorder: No Hx Substance Use: No - SURGICAL HISTORY Hx Cholecystectomy: Yes Hx Orthopedic Surgery: Yes (r knee sx) - ANESTHESIA Hx Anesthesia: Yes Hx Anesthesia Reactions: Yes (bradycardia, asystole) Hx Malignant Hyperthermia: No Meds Allergies/Adverse Reactions: Allergies Allergy/AdvReac Type Severity Reaction Status Date / Time No Known Allergies Allergy Verified 08/30/18 20:29 - Medications Medications: Current Medications Acetaminophen (Tylenol 325mg Tab) 650 mg PO Q6H PRN; Protocol PRN Reason: Fever >100.4 F Last Admin: 09/06/18 12:05 Dose: 650 mg Aspirin (Aspirin Chewable) 81 mg PO 0800 [facility]; Protocol Last Admin: 09/11/18 07:55 Dose: 81 mg Dextrose (Dextrose 50% Inj) 50 ml IVP PRN PRN; Protocol PRN Reason: Hypoglycemia Furosemide (Lasix) 40 mg PO 0600 [facility]; Protocol Last Admin: 09/10/18 05:05 Dose: 40 mg Insulin Human Regular (Humulin R Med) 0 units SC ACHS [facility]; Protocol Last Admin: 09/11/18 11:32 Dose: Not Given Metoprolol Tartrate (Lopressor) 25 mg PO 0800,1800 [facility]; Protocol Last Admin: 09/11/18 07:56 Dose: Not Given Tramadol HCl (Ultram) 50 mg PO TID PRN; Protocol PRN Reason: Pain, moderate (4-7) Last Admin: 09/11/18 13:57 Dose: 50 mg Warfarin Sodium (Coumadin) 5 mg PO 1800 [facility]; Protocol Last Admin: 09/10/18 17:14 Dose: 5 mg Physical Exam - Constitutional Appears: Non-toxic, No Acute Distress - Head Exam Head Exam: ATRAUMATIC, NORMOCEPHALIC - Eye Exam Eye Exam: EOMI - ENT Exam ENT Exam: Mucous Membranes Moist - Neck Exam Neck exam: Positive for: Full Rom - Respiratory Exam Respiratory Exam: NORMAL BREATHING PATTERN. absent: Accessory Muscle Use, Res piratory Distress - GI/Abdominal Exam GI & Abdominal Exam: Soft. absent: Distended, Firm, Guarding, Rebound, Rigid, Tenderness Additional comments: incisions C/D/I - Extremities Exam Extremities exam: Negative for: calf tenderness, pedal pulses present - Neurological Exam Neurological exam: Alert, Oriented x3 Results - Vital Signs Recent Vital Signs: Last Vital Signs Temp 97.7 F 09/10/18 16:00 Pulse 77 09/11/18 14:11 Resp 14 09/10/18 16:00 BP 120/53 L 09/11/18 07:56 Pulse Ox 93 L 09/11/18 14:11 - Labs Result Diagrams: 09/11/18 15:16 09/11/18 06:40 Labs: Laboratory Results - last 24 hr 09/10/18 09/10/18 09/11/18 16:46 21:22 05:46 WBC RBC Hgb Hct MCV MCH MCHC RDW Plt Count MPV Gran % Lymph % (Auto) [place] % (Auto) Eos % (Auto) Baso % (Auto) Gran # Lymph # (Auto) [place] # (Auto) Eos # (Auto) Baso # (Auto) Sodium Potassium Chloride Carbon Dioxide Anion Gap BUN Creatinine Est GFR ( Amer) Est GFR (Non-Af Amer) POC Glucose (mg/dL) 123 H 115 H 120 H Random Glucose Calcium Total Bilirubin AST ALT Alkaline Phosphatase Total Protein Albumin Globulin Albumin/Globulin Ratio 09/11/18 09/11/18 09/11/18 06:40 06:40 11:27 WBC 10.8 RBC 2.79 L Hgb 9.3 L Hct 28.7 L MCV 102.9 MCH 33.3 MCHC 32.4 RDW 18.1 H Plt Count 368 MPV 10.4 Gran % Lymph % (Auto) [place] % (Auto) Eos % (Auto) Baso % (Auto) Gran # Lymph # (Auto) [place] # (Auto) Eos # (Auto) Baso # (Auto) Sodium 136 Potassium 4.5 Chloride 96 L Carbon Dioxide 33 Anion Gap 11 BUN 42 H Creatinine 1.5 Est GFR ( Amer) 53 Est GFR (Non-Af Amer) 44 POC Glucose (mg/dL) 122 H Random Glucose 98 Calcium 8.5 Total Bilirubin 0.5 AST 56 ALT 51 Alkaline Phosphatase 96 Total Protein 6.6 Albumin 3.3 Globulin 3.3 Albumin/Globulin Ratio 1.0 L 09/11/18 15:16 WBC 11.9 H RBC 2.73 L Hgb 9.1 L Hct 28.1 L MCV 102.9 MCH 33.3 MCHC 32.4 RDW 18.3 H Plt Count 371 MPV 10.4 Gran % 72.2 H Lymph % (Auto) 15.7 L [place] % (Auto) 11.0 H Eos % (Auto) 0.8 L Baso % (Auto) 0.3 Gran # 8.61 H Lymph # (Auto) 1.9 [place] # (Auto) 1.3 H Eos # (Auto) 0.1 Baso # (Auto) 0.03 Sodium Potassium Chloride Carbon Dioxide Anion Gap BUN Creatinine Est GFR ( Amer) Est GFR (Non-Af Amer) POC Glucose (mg/dL) Random Glucose Calcium Total Bilirubin AST ALT Alkaline Phosphatase Total Protein Albumin Globulin Albumin/Globulin Ratio Assessment & Plan - Assessment and Plan (Free Text) Assessment: 88M s/p open parker on 08/27, now anemic -At 2 weeks post-op, doubt anemia is related to surgery -Will trend h/h, repeat in AM -F/U on stool occult -Pt does have questionable neoplastic mass in bladder seen on CT, recommend f/u w. urology -will continue to follow -d/w attending Chastity PGY4
--- NOTE | 2018-09-12 02:22 | CP.PCM.PN ---
<Vicente Connell - Last Filed: 09/12/18 05:19> Subjective - Date & Time of Evaluation Date of Evaluation: 09/12/18 Time of Evaluation: 02:22 - Subjective Subjective: S: 88 y/o male with PMHx of A. Stephani on coumadin, pacemaker, aortic insufficiency, CKD, s/p lap converted to open cholecystectomy, initially sent to the TCU for deconditioning and weakness aprox 1 week ago. Patient was noted to feel weak after having a large bowel movement. It was also noted that patient had black stools. Patient's Hb continue to drop in the past 2 days. He denies fevers, chills, headaches, shortness of breath, chest pain, or abdominal pain. O: Vital signs stable Gen: Lethargic, not in acute distress HEENT: PERRLA Lungs: CTA b/l Heart: RRR, S1, S2 Abdomen: Soft, non-tender, non-distended Rectal: no external or internal hemorrhoids, no masses palpable, black stool noted Extremities: no edema A: Patient's Hb decreased from 11.1-->9.1 in 1 day. It was also reported that patient had melena. P: - Rectal exam: no external or internal hemorrhoids, no masses palpable, black stool noted - Fecal occult blood: Positive for blood - CBC already ordered - Defer to PMD for GI consult - Surgery already consulted - Trend H&H - Continue to monitor Objective - Vital Signs/Intake and Output Vital Signs (last 24 hours): Temp Pulse Resp BP Pulse Ox 97.6 F 68 18 108/58 L 97 09/11/18 16:00 09/11/18 17:16 09/11/18 16:00 09/11/18 17:16 09/11/18 16:00 - Medications Medications: Current Medications Acetaminophen (Tylenol 325mg Tab) 650 mg PO Q6H PRN; Protocol PRN Reason: Fever >100.4 F Last Admin: 09/06/18 12:05 Dose: 650 mg Aspirin (Aspirin Chewable) 81 mg PO 0800 [facility]; Protocol Last Admin: 09/11/18 07:55 Dose: 81 mg Dextrose (Dextrose 50% Inj) 50 ml IVP PRN PRN; Protocol PRN Reason: Hypoglycemia Furosemide (Lasix) 40 mg PO 0600 [facility]; Protocol Last Admin: 09/10/18 05:05 Dose: 40 mg Insulin Human Regular (Humulin R Med) 0 units SC ACHS [facility]; Protocol Last Admin: 09/11/18 21:41 Dose: Not Given Metoprolol Tartrate (Lopressor) 25 mg PO 0800,1800 [facility]; Protocol Last Admin: 09/11/18 17:16 Dose: Not Given Ondansetron HCl (Zofran Inj) 4 mg IVP Q4H PRN PRN Reason: Nausea/Vomiting Tramadol HCl (Ultram) 50 mg PO TID PRN; Protocol PRN Reason: Pain, moderate (4-7) Last Admin: 09/11/18 13:57 Dose: 50 mg - Labs Labs: 09/11/18 15:16 09/11/18 06:40 PT 19.9 SECONDS (9.4-12.5) H 09/09/18 06:30 INR 1.71 09/09/18 06:30 <Sree Davis - Last Filed: 09/12/18 19:03> Objective - Vital Signs/Intake and Output Vital Signs (last 24 hours): Temp Pulse Resp BP Pulse Ox 97.2 F L 60 16 117/55 L 94 L 09/12/18 10:00 09/12/18 10:00 09/12/18 10:00 09/12/18 10:00 09/12/18 10:00 - Medications Medications: Current Medications Acetaminophen (Tylenol 325mg Tab) 650 mg PO Q6H PRN; Protocol PRN Reason: Fever >100.4 F Last Admin: 09/06/18 12:05 Dose: 650 mg Dextrose (Dextrose 50% Inj) 50 ml IVP PRN PRN; Protocol PRN Reason: Hypoglycemia Pantoprazole Sodium (Protonix 40mg Ivpb) 40 mg in 100 mls @ 200 mls/hr IVPB Q12 [facility] Last Admin: 09/12/18 11:21 Dose: 200 mls/hr Sodium Chloride (Sodium Chloride 0.45%) 1,000 mls @ 40 mls/hr IV .Q24H [facility] Last Admin: 09/12/18 10:00 Dose: 40 mls/hr Insulin Human Regular (Humulin R Med) 0 units SC ACHS [facility]; Protocol Last Admin: 09/12/18 17:30 Dose: Not Given Ondansetron HCl (Zofran Inj) 4 mg IVP Q6H PRN PRN Reason: Nausea/Vomiting - Labs Labs: 09/12/18 06:25 09/12/18 06:25 PT 19.7 SECONDS (9.4-12.5) H 09/12/18 06:25 INR 1.74 09/12/18 06:25 Attending/Attestation - Attestation I have personally seen and examined this patient.: No I have fully participated in the care of the patient.: No I have reviewed all pertinent clinical information, including history, physical exam and plan: No
[2018-09-12] MEDS: Insulin Reg-MEDIUM-Coverage SC SCH ×4 (06:55→21:53)
[2018-09-12 07:00] LABS: BASO # 0.03 K/mm3 (0.0-2.0); BASO % 0.2 % (0.0-3.0); EOS % 0.2 % (1.5-5.0); GRAN # 12.25 (1.4-6.5); GRAN % 76.6 % (50.0-68.0); HEMOGLOBIN 8.9 g/dL (14.0-18.0); LYMPH # 2.2 (1.2-3.4); LYMPH % 13.5 % (22.0-35.0); MEAN CELL VOLUME 102.6 fl (80.0-105.0); MEAN CORPUSCULAR HEMOGLOBIN 33.1 pg (25.0-35.0); MEAN CORPUSCULAR HGB CONC 32.2 g/dl (31.0-37.0); MEAN PLATELET VOLUME 10.8 fl (7.0-11.0); MONO # 1.5 (0.1-0.6); MONO % 9.5 % (1.0-6.0); RBC 2.69 10^6/uL (3.5-6.1); RED CELL DISTRIBUTION WIDTH 18.9 % (11.5-14.5)
[2018-09-12 07:07] LABS: INR 1.74; PROTHROMBIN TIME 19.7 SECONDS (9.4-12.5)
[2018-09-12 07:09] LABS: ALBUMIN 3.5 g/dL (3.0-4.8); CALCIUM 8.8 mg/dL (8.4-10.5)
[2018-09-12] MEDS ORDERED: Sodium Chloride 0.45% 1,000 ML IV SCH (10:00)
--- NOTE | 2018-09-12 10:24 | CP.PCM.PN ---
Subjective - Date & Time of Evaluation Date of Evaluation: 09/12/18 Time of Evaluation: 10:21 - Subjective Subjective: Surgery Progress note- Dr. Lema Patient seen and examined at bedside. No new complaints at this time. resting comfortably in TCU. Patient has been ambulating w/ assistance and physical therapy. Denies bright red blood per rectum. + Flatus, normal BM. Incisions C/D/I covered w/ steri-strips. Objective - Vital Signs/Intake and Output Vital Signs (last 24 hours): Temp Pulse Resp BP Pulse Ox 97.2 F L 60 16 117/55 L 94 L 09/12/18 10:00 09/12/18 10:00 09/12/18 10:00 09/12/18 10:00 09/12/18 10:00 - Medications Medications: Current Medications Acetaminophen (Tylenol 325mg Tab) 650 mg PO Q6H PRN; Protocol PRN Reason: Fever >100.4 F Last Admin: 09/06/18 12:05 Dose: 650 mg Dextrose (Dextrose 50% Inj) 50 ml IVP PRN PRN; Protocol PRN Reason: Hypoglycemia Pantoprazole Sodium (Protonix 40mg Ivpb) 40 mg in 100 mls @ 200 mls/hr IVPB Q12 [facility] Sodium Chloride (Sodium Chloride 0.45%) 1,000 mls @ 40 mls/hr IV .Q24H [facility] Last Admin: 09/12/18 10:00 Dose: 40 mls/hr Insulin Human Regular (Humulin R Med) 0 units SC ACHS [facility]; Protocol Last Admin: 09/12/18 06:55 Dose: Not Given Ondansetron HCl (Zofran Inj) 4 mg IVP Q6H PRN PRN Reason: Nausea/Vomiting - Labs Labs: 09/12/18 06:25 09/12/18 06:25 PT 19.7 SECONDS (9.4-12.5) H 09/12/18 06:25 INR 1.74 09/12/18 06:25 - Constitutional Appears: Non-toxic, No Acute Distress, Chronically Ill - Head Exam Head Exam: ATRAUMATIC - Eye Exam Eye Exam: EOMI. absent: Scleral icterus - ENT Exam ENT Exam: Mucous Membranes Moist - Respiratory Exam Respiratory Exam: NORMAL BREATHING PATTERN. absent: Accessory Muscle Use, Respiratory Distress - Cardiovascular Exam Cardiovascular Exam: +S1, +S2. absent: Bradycardia, Tachycardia - GI/Abdominal Exam GI & Abdominal Exam: Soft. absent: Firm, Guarding, Rigid, Tenderness Additional comments: Incisions C/D/I - Neurological Exam Neurological Exam: Alert, Awake, Oriented x3 - Psychiatric Exam Psychiatric exam: Normal Affect - Skin Skin Exam: Intact, Warm Assessment and Plan - Assessment and Plan (Free Text) Assessment: 88M s/p Lap converted to Open cholecystectomy POD#16; currently in TCU working on strength training, w/ anemia Plan: -Repeat H/H stable at 8.9 from 9.1 -Occult stool + this AM -etiology unlikely from liver bed -Pt does have questionable neoplastic mass in bladder seen on CT, recommend f/u w. urology -will continue to follow -d/w attending Merchant [email or web address]
[2018-09-12] MEDS: Pantoprazole 40mg/100mL NS 40 MG/100 ML BAG IVPB SCH ×2 (11:21→22:19)
[2018-09-12] MEDS ORDERED: Barium Sulfate Susp 2.1% w/v, 2.0% w/w 450 mL Bottle PO ONE (12:27)
--- NOTE | 2018-09-12 13:09 | CP.PCM.CON ---
<Alex Caballero - Last Filed: 09/12/18 13:19> History of Present Illness - History of Present Illness History of Present Illness: PGY-4 GI Fellow Consult Note Pt is an 88 yo Hisp Male with A-fib (on warfarin, with pacemaker), CAD (Cath Aug 2018, no stents, medical Rx), HTN, HLD, Hypothyroid, Bladder Mass who originally was admitted to [facility] in early August 2018 for cholecystitis for which he had open cholecystectomy which required hepatobiliary surgeon to perform, with subsequent ICU stay, now patient in TCU recovering. GI consulted for GI bleed. Pt states that he just doesn't feel well in general with some generalized weakness. Denied any CP, SOB, N/V, dysphagia, weight loss, nor hematochezia. Nursing reports black stool yesterday, unknown how many BMs. Patient is not sure on details either. He reports some vague RUQ discomfort but states that has been consistent since cholecystectomy, not new. He denied any history of GI bleed and has never had EGD nor Colonoscopy. 12 point ROS negative other than stated above. MHx: AFib (on warfarin, s/p pacemaker), CAD, HTN, HLD, Hypothyroid, Bladder mass SurgHx: Hernia surgery, CCx (open, on 08/27/18) Meds: Reviewed in chart FamHx: Unknown CA history SocHx: Denied x 3 All: NKDA Past Patient History - Infectious Disease Hx of Infectious Diseases: None - Tetanus Immunizations Tetanus Immunization: Unknown - Past Social History Smoking Status: Former Smoker - CARDIAC Hx Cardiac Disorders: Yes Hx Congestive Heart Failure: Yes Hx Hypertension: Yes - PULMONARY Hx Respiratory Disorders: No - NEUROLOGICAL Hx Neurological Disorder: No - HEENT Hx HEENT Problems: No - RENAL Hx Chronic Kidney Disease: No - ENDOCRINE/METABOLIC Hx Hypothyroidism: Yes - HEMATOLOGICAL/ONCOLOGICAL Hx Blood Transfusions: No Hx Blood Transfusion Reaction: (NA) - INTEGUMENTARY Hx Dermatological Problems: No - MUSCULOSKELETAL/RHEUMATOLOGICAL Hx Falls: No - GASTROINTESTINAL Hx Gastrointestinal Disorders: No - GENITOURINARY/GYNECOLOGICAL Hx Reproductive Disorders: No - PSYCHIATRIC Hx Psychophysiologic Disorder: No Hx Substance Use: No - SURGICAL HISTORY Hx Cholecystectomy: Yes Hx Orthopedic Surgery: Yes (r knee sx) - ANESTHESIA Hx Anesthesia: Yes Hx Anesthesia Reactions: Yes (bradycardia, asystole) Hx Malignant Hyperthermia: No Meds Allergies/Adverse Reactions: Allergies Allergy/AdvReac Type Severity Reaction Status Date / Time No Known Allergies Allergy Verified 08/30/18 20:29 - Medications Medications: Current Medications Acetaminophen (Tylenol 325mg Tab) 650 mg PO Q6H PRN; Protocol PRN Reason: Fever >100.4 F Last Admin: 09/06/18 12:05 Dose: 650 mg Dextrose (Dextrose 50% Inj) 50 ml IVP PRN PRN; Protocol PRN Reason: Hypoglycemia Pantoprazole Sodium (Protonix 40mg Ivpb) 40 mg in 100 mls @ 200 mls/hr IVPB Q12 [facility] Last Admin: 09/12/18 11:21 Dose: 200 mls/hr Sodium Chloride (Sodium Chloride 0.45%) 1,000 mls @ 40 mls/hr IV .Q24H [facility] Last Admin: 09/12/18 10:00 Dose: 40 mls/hr Insulin Human Regular (Humulin R Med) 0 units SC ACHS [facility]; Protocol Last Admin: 09/12/18 06:55 Dose: Not Given Ondansetron HCl (Zofran Inj) 4 mg IVP Q6H PRN PRN Reason: Nausea/Vomiting Physical Exam - Constitutional Appears: No Acute Distress Additional comments: Tired - Head Exam Head Exam: ATRAUMATIC, NORMAL INSPECTION - Eye Exam Eye Exam: EOMI. absent: Scleral icterus - ENT Exam ENT Exam: Mucous Membranes Moist. absent: Mucous Membranes Dry - Respiratory Exam Respiratory Exam: NORMAL BREATHING PATTERN. absent: Accessory Muscle Use, Respiratory Distress - Cardiovascular Exam Cardiovascular Exam: REGULAR RHYTHM, RRR - GI/Abdominal Exam GI & Abdominal Exam: Normal Bowel Sounds, Soft, Tenderness. absent: Bruit, Diminished Bowel Sounds, Distended, Firm, Guarding, Hernia, Organomegaly, Pulsatile Mass, Rebound, Rigid Additional comments: mildly ttp in RUQ, post-surgical sites c/d/i, ecchymoses on abdomen - Rectal Exam Additional comments: small external hemorrhoids (non-thrombosed), RASHID with soft black stool - Extremities Exam Extremities exam: Positive for: normal inspection. Negative for: pedal edema - Neurological Exam Neurological exam: Alert, CN II-XII Intact - Psychiatric Exam Psychiatric exam: Normal Affect, Normal Mood - Skin Skin Exam: Dry, Warm Results - Vital Signs Recent Vital Signs: Last Vital Signs Temp 97.2 F L 09/12/18 10:00 Pulse 60 09/12/18 10:00 Resp 16 09/12/18 10:00 BP 117/55 L 09/12/18 10:00 Pulse Ox 94 L 09/12/18 10:00 - Labs Result Diagrams: 09/12/18 06:25 09/12/18 06:25 Labs: Laboratory Results - last 24 hr 09/11/18 09/11/18 09/11/18 15:16 16:17 20:25 WBC 11.9 H RBC 2.73 L Hgb 9.1 L Hct 28.1 L MCV 102.9 MCH 33.3 MCHC 32.4 RDW 18.3 H Plt Count 371 MPV 10.4 Gran % 72.2 H Lymph % (Auto) 15.7 L [place] % (Auto) 11.0 H Eos % (Auto) 0.8 L Baso % (Auto) 0.3 Gran # 8.61 H Lymph # (Auto) 1.9 [place] # (Auto) 1.3 H Eos # (Auto) 0.1 Baso # (Auto) 0.03 PT INR Sodium Potassium Chloride Carbon Dioxide Anion Gap BUN Creatinine Est GFR ( Amer) Est GFR (Non-Af Amer) POC Glucose (mg/dL) 134 H 158 H Random Glucose Calcium Total Bilirubin AST ALT Alkaline Phosphatase Total Protein Albumin Globulin Albumin/Globulin Ratio Stool Occult Blood 09/12/18 09/12/18 09/12/18 04:00 05:11 06:25 WBC 16.0 H D RBC 2.69 L Hgb 8.9 L Hct 27.6 L MCV 102.6 MCH 33.1 MCHC 32.2 RDW 18.9 H Plt Count 413 MPV 10.8 Gran % 76.6 H Lymph % (Auto) 13.5 L [place] % (Auto) 9.5 H Eos % (Auto) 0.2 L Baso % (Auto) 0.2 Gran # 12.25 H Lymph # (Auto) 2.2 [place] # (Auto) 1.5 H Eos # (Auto) 0.0 Baso # (Auto) 0.03 PT INR Sodium Potassium Chloride Carbon Dioxide Anion Gap BUN Creatinine Est GFR ( Amer) Est GFR (Non-Af Amer) POC Glucose (mg/dL) 142 H Random Glucose Calcium Total Bilirubin AST ALT Alkaline Phosphatase Total Protein Albumin Globulin Albumin/Globulin Ratio Stool Occult Blood Positive H 09/12/18 09/12/18 09/12/18 06:25 06:25 11:14 WBC RBC Hgb Hct MCV MCH MCHC RDW Plt Count MPV Gran % Lymph % (Auto) [place] % (Auto) Eos % (Auto) Baso % (Auto) Gran # Lymph # (Auto) [place] # (Auto) Eos # (Auto) Baso # (Auto) PT 19.7 H INR 1.74 Sodium 137 Potassium 4.9 Chloride 99 Carbon Dioxide 31 Anion Gap 12 BUN 72 H Creatinine 2.0 H Est GFR ( Amer) 38 Est GFR (Non-Af Amer) 32 POC Glucose (mg/dL) 156 H Random Glucose 135 H Calcium 8.8 Total Bilirubin 0.6 AST 51 ALT 49 Alkaline Phosphatase 105 Total Protein 7.0 Albumin 3.5 Globulin 3.5 Albumin/Globulin Ratio 1.0 L Stool Occult Blood Assessment & Plan - Assessment and Plan (Free Text) Assessment: 88 yo Hisp Male with Afib (on warfarin), CAD (Rx alone, no stents), HTN, Bladder Mass found to have decreasing Hgb and black stools. # GI Bleed: Suspect Upper source given melena, increased BUN. Has risk factors of warfarin, ASA and possible recent enoxaparin/heparin bridge. Hgb downtrending over last few days from 11 to 8.9. Vitals stable at this time. No prior endoscopic evaluations. PUD vs Hemobilia given recent cholecystecomy vs other. # AFib: On warfarin. INR 1.74 # CAD: Med manangement only, no stents # s/p Open Cholecystectomy 08/27/18 Plan: - NPO - PPI IV q 12 hrs - Trend Hgb - PRBC transfusion per primary - Monitor CBC, CMP, INR; may need FFP in AM - Hold BP meds and warfarin - Plan for EGD on 09/13/18 Pt seen and examined with Dr. Corrales; please see attestation for further recs/changes. <Hammad Corrales Y - Last Filed: 09/12/18 13:54> Meds - Medications Medications: Current Medications Acetaminophen (Tylenol 325mg Tab) 650 mg PO Q6H PRN; Protocol PRN Reason: Fever >100.4 F Last Admin: 09/06/18 12:05 Dose: 650 mg Dextrose (Dextrose 50% Inj) 50 ml IVP PRN PRN; Protocol PRN Reason: Hypoglycemia Pantoprazole Sodium (Protonix 40mg Ivpb) 40 mg in 100 mls @ 200 mls/hr IVPB Q12 [facility] Last Admin: 09/12/18 11:21 Dose: 200 mls/hr Sodium Chloride (Sodium Chloride 0.45%) 1,000 mls @ 40 mls/hr IV .Q24H [facility] Last Admin: 09/12/18 10:00 Dose: 40 mls/hr Insulin Human Regular (Humulin R Med) 0 units SC ACHS [facility]; Protocol Last Admin: 09/12/18 06:55 Dose: Not Given Ondansetron HCl (Zofran Inj) 4 mg IVP Q6H PRN PRN Reason: Nausea/Vomiting Results - Vital Signs Recent Vital Signs: Last Vital Signs Temp 97.2 F L 09/12/18 10:00 Pulse 60 09/12/18 10:00 Resp 16 09/12/18 10:00 BP 117/55 L 09/12/18 10:00 Pulse Ox 94 L 09/12/18 10:00 - Labs Result Diagrams: 09/12/18 06:25 09/12/18 06:25 Labs: Laboratory Results - last 24 hr 09/11/18 09/11/18 09/11/18 15:16 16:17 20:25 WBC 11.9 H RBC 2.73 L Hgb 9.1 L Hct 28.1 L MCV 102.9 MCH 33.3 MCHC 32.4 RDW 18.3 H Plt Count 371 MPV 10.4 Gran % 72.2 H Lymph % (Auto) 15.7 L [place] % (Auto) 11.0 H Eos % (Auto) 0.8 L Baso % (Auto) 0.3 Gran # 8.61 H Lymph # (Auto) 1.9 [place] # (Auto) 1.3 H Eos # (Auto) 0.1 Baso # (Auto) 0.03 PT INR Sodium Potassium Chloride Carbon Dioxide Anion Gap BUN Creatinine Est GFR ( Amer) Est GFR (Non-Af Amer) POC Glucose (mg/dL) 134 H 158 H Random Glucose Calcium Total Bilirubin AST ALT Alkaline Phosphatase Total Protein Albumin Globulin Albumin/Globulin Ratio Stool Occult Blood 09/12/18 09/12/18 09/12/18 04:00 05:11 06:25 WBC 16.0 H D RBC 2.69 L Hgb 8.9 L Hct 27.6 L MCV 102.6 MCH 33.1 MCHC 32.2 RDW 18.9 H Plt Count 413 MPV 10.8 Gran % 76.6 H Lymph % (Auto) 13.5 L [place] % (Auto) 9.5 H Eos % (Auto) 0.2 L Baso % (Auto) 0.2 Gran # 12.25 H Lymph # (Auto) 2.2 [place] # (Auto) 1.5 H Eos # (Auto) 0.0 Baso # (Auto) 0.03 PT INR Sodium Potassium Chloride Carbon Dioxide Anion Gap BUN Creatinine Est GFR ( Amer) Est GFR (Non-Af Amer) POC Glucose (mg/dL) 142 H Random Glucose Calcium Total Bilirubin AST ALT Alkaline Phosphatase Total Protein Albumin Globulin Albumin/Globulin Ratio Stool Occult Blood Positive H 09/12/18 09/12/18 09/12/18 06:25 06:25 11:14 WBC RBC Hgb Hct MCV MCH MCHC RDW Plt Count MPV Gran % Lymph % (Auto) [place] % (Auto) Eos % (Auto) Baso % (Auto) Gran # Lymph # (Auto) [place] # (Auto) Eos # (Auto) Baso # (Auto) PT 19.7 H INR 1.74 Sodium 137 Potassium 4.9 Chloride 99 Carbon Dioxide 31 Anion Gap 12 BUN 72 H Creatinine 2.0 H Est GFR ( Amer) 38 Est GFR (Non-Af Amer) 32 POC Glucose (mg/dL) 156 H Random Glucose 135 H Calcium 8.8 Total Bilirubin 0.6 AST 51 ALT 49 Alkaline Phosphatase 105 Total Protein 7.0 Albumin 3.5 Globulin 3.5 Albumin/Globulin Ratio 1.0 L Stool Occult Blood Attending/Attestation - Attestation I have personally seen and examined this patient.: Yes I have fully participated in the care of the patient.: Yes I have reviewed all pertinent clinical information: Yes Notes (Text): 09/12/18 13:42 I have seen and examined patient with GI fellow. Agree with above documentation with the following additions. In brief, this is an 88 year old male with history of atrial fibrillation on coumadin, s/p PPM, CAD, HTN, hypothyroidism, bladder lesion who was originally admitted to rehabilitation unit following cholecystectomy. GI called for evaluation of progressive anemia with melena. He reports overall malaise with right sided abdominal pain for the past 2 days. He also notes dark colored stool during this time. He otherwise denies nausea, vomiting, fever/chills, weight loss. No prior endoscopic evaluation. Review of vitals from today are normal. Atrial fibrillation on coumadin (held) CAD s/p PPM HTN Hypothyroidism Bladder lesion Anemia, melena - NPO - Continue with IV PPI therapy - Continue to monitor H/H - Given abdominal discomfort with worsening anemia and presence of melena on rectal examination, will plan for EGD tomorrow morning for further evaluation to rule out peptic ulcer disease. Will continue to monitor patient clinical course.
--- NOTE | 2018-09-12 14:57 | CP.PCM.PN ---
Subjective - Date & Time of Evaluation Date of Evaluation: 09/12/18 Time of Evaluation: 08:45 - Subjective Subjective: Patient apparently having melena, no fevers, not in distress. No abdominal pain. Objective - Vital Signs/Intake and Output Vital Signs (last 24 hours): Temp Pulse Resp BP Pulse Ox 97.2 F L 60 16 117/55 L 94 L 09/12/18 10:00 09/12/18 10:00 09/12/18 10:00 09/12/18 10:00 09/12/18 10:00 - Medications Medications: Current Medications Acetaminophen (Tylenol 325mg Tab) 650 mg PO Q6H PRN; Protocol PRN Reason: Fever >100.4 F Last Admin: 09/06/18 12:05 Dose: 650 mg Dextrose (Dextrose 50% Inj) 50 ml IVP PRN PRN; Protocol PRN Reason: Hypoglycemia Pantoprazole Sodium (Protonix 40mg Ivpb) 40 mg in 100 mls @ 200 mls/hr IVPB Q12 SURI Last Admin: 09/12/18 11:21 Dose: 200 mls/hr Sodium Chloride (Sodium Chloride 0.45%) 1,000 mls @ 40 mls/hr IV .Q24H SURI Last Admin: 09/12/18 10:00 Dose: 40 mls/hr Insulin Human Regular (Humulin R Med) 0 units SC ACHS SURI; Protocol Last Admin: 09/12/18 06:55 Dose: Not Given Ondansetron HCl (Zofran Inj) 4 mg IVP Q6H PRN PRN Reason: Nausea/Vomiting - Labs Labs: 09/12/18 06:25 09/12/18 06:25 PT 19.7 SECONDS (9.4-12.5) H 09/12/18 06:25 INR 1.74 09/12/18 06:25 - Constitutional Appears: Chronically Ill - Head Exam Head Exam: NORMAL INSPECTION - Respiratory Exam Respiratory Exam: Decreased Breath Sounds - Cardiovascular Exam Cardiovascular Exam: +S1, +S2 - GI/Abdominal Exam GI & Abdominal Exam: Soft. absent: Tenderness Assessment and Plan - Assessment and Plan (Free Text) Plan: Assessment leukocytosis probably stress reaction to melena / GI bleed S/P right middle lobe HCAP acute cholecystitis S/P cholecystectomy melena, etiology being evaluated history of sepsis due to right sided HCAP chronic renal failure HTN hypothyroidism S/P pacemaker placement Plan completed at least 5 days of Zosyn will trend WBC count and follow up GI evaluation will continue to monitor clinically off antibiotics
--- NOTE | 2018-09-12 15:16 | PN ---
DATE: 09/12/2018 SUBJECTIVE: He was doing well up until about last night. He has had some abdominal pain with nauseousness. He had large bowel movement. It was dark. There was a positive stool for blood. I changed his medications around. I stopped his aspirin. I stopped Toradol. He will be on Zofran, pantoprazole. It is very possible he is going to get scope. I made him n.p.o. He has got IV fluids. PHYSICAL EXAMINATION: VITAL SIGNS: He has 98 temp, 62 pulse, 107/49 blood pressure, 18 respiratory rate, 92% on room air. Also, he is a little bit uncomfortable, nauseous, abdominal pain, black stools. He looks weaker to me. LABORATORY DATA: He has 137 sodium, potassium 4.9, BUN 72, creatinine 2, that went up. GFR is 32, sugar is 135, calcium is 8.8, total bili is 0.6, AST is 51, ALT is 49, alk phos 105, total protein is 7. Stool for occult blood was positive, his last INR was 1.74. He is off the Coumadin. He has a 16 white count that jumped up. We are going to call in Dr. Kennedy, Infectious Disease to evaluate that. Hemoglobin is 8.9, hematocrit 27.6, so, he is dropping from 11.1, it is 8.9 now and platelets of 413. ASSESSMENT AND PLAN: He is being seen by Infectious Disease already, Surgery and GI. Hope that they could scope him and see if there is anything going on and we will see if he needs to be on antibiotics for the elevated white count. We will continue with aggressive treatment and care. Dieter Griggs DO
--- NOTE | 2018-09-12 16:09 | PN ---
DATE: 09/12/2018 SUBJECTIVE: I saw this 88-year-old man who was approximately 2 weeks status post open cholecystectomy, complicated by cholangiogram, that was normal. ERCP that showed a stone, that was removed. There is little bit a bile leak at the time of surgery, but nothing was seemed sensed. Liver functions are normal. He is very lethargic at the time and little bit concerning. VITAL SIGNS: His temperature is normal. LABORATORY DATA: Shows a white count of 16, hemoglobin has come down at some 11.1, and 8.9, with guaiac positive stool. His glucose was 135, liver functions are completely normal. His abdomen is soft and nontender. There is a little puffiness in the abdominal wound. We will order a CAT scan just to check to make sure there is no abscess as this patient is diabetic and have a necrotic gallbladder. I do not think HIDA is indicated at this time, but we will discuss later. Kevon Lema MD
[2018-09-13 05:55] VITALS: BP 110/52; PULSE 65; RESP 20; TEMP 97.6; O2SAT 91
[2018-09-13] MEDS: Insulin Reg-MEDIUM-Coverage SC SCH (06:40)
[2018-09-13 07:23] LABS: HEMOGLOBIN 8.2 g/dL (14.0-18.0); MEAN CELL VOLUME 104.2 fl (80.0-105.0); MEAN CORPUSCULAR HEMOGLOBIN 34.2 pg (25.0-35.0); MEAN CORPUSCULAR HGB CONC 32.8 g/dl (31.0-37.0); MEAN PLATELET VOLUME 10.6 fl (7.0-11.0); RBC 2.4 10^6/uL (3.5-6.1); RED CELL DISTRIBUTION WIDTH 19.3 % (11.5-14.5)
[2018-09-13 07:32] LABS: INR 1.58; PROTHROMBIN TIME 17.8 SECONDS (9.4-12.5)
[2018-09-13 07:44] LABS: ALBUMIN 3.2 g/dL (3.0-4.8); CALCIUM 8.4 mg/dL (8.4-10.5)
[2018-09-13] MEDS ORDERED: Lidocaine PF 2% (5 ml) Inj (For Cardiac Arrhy) ONE (09:52)
[2018-09-13] MEDS ORDERED: Propofol 10 mg/ml Inj (20 ML) ONE (09:52)
--- NOTE | 2018-09-13 10:33 | DS ---
HISTORY OF PRESENT ILLNESS: He is in the Transitional Care Unit. He is actually going for an endoscopy today with GI and he will be sent to the emergency room for admission to the hospital I believe. He had a little bit of a GI bleed. He is on dextrose, insulin, Protonix, IV fluids, Tylenol and Zofran. PHYSICAL EXAMINATION: VITAL SIGNS: He has a 97.6 temperature, 65 pulse, 110/52 blood pressure, 20 respiratory rate, 91% O2 sat on room air. HEAD: Atraumatic, normocephalic. HEART: Regular rate. LUNGS: Decreased breath sounds but clear. ABDOMEN: Soft. Positive bowel sounds. He had an acute cholecystectomy and open surgery and is little tender today. EXTREMITIES: No edema. LABORATORY DATA: He did have black stools with blood. That is why he is going for the endoscopy. He has a 12 white count, 8.2 hemoglobin is dropping for just below 8. He will be transfused 25 hematocrit and 355 platelets, 1.58 INR. He is off his Coumadin. 135 sodium, potassium 4.5, BUN 79, creatinine 2.4, GFR is 26. Sugar of 105, calcium is 8.4, total bili is 0.7, AST is 41, ALT is 51, alk phos 89, total protein 6.4. He had a positive occult blood. He is being scoped today with GI and he will be moved to the ER for admission and will be discharged in the Transitional Care Unit if having melena and he is status post open parker with cholecystitis. Dieter Griggs DO
[2018-09-13] MEDS ORDERED: ePHEDrine 50 mg/ml Inj ONE (10:42)
[2018-09-13] MEDS ORDERED: Sodium Chloride 0.9% 1,000 ML IV SCH (11:00)
[2018-09-13] MEDS ORDERED: Sucralfate 1 gm/10 ml Oral Susp UD PO SCH (16:00)
[2018-09-13] MEDS ORDERED: Pantoprazole 40 mg EC Tab PO SCH (18:00)
== END 2018-09-13 13:14 | disposition short-term general hospital (02) | DRG 945 ==
LOC: TRCU 18:05
PROVIDERS: ADMIT Family Medicine; ATTEND Family Medicine
PROC: 3E03329 Introduction of Other Anti-infective into Peripheral Vein, Percutaneous Approach (ICD-10-PCS; 2018-09-04)
PROC: F07Z9FZ Gait Training/Functional Ambulation Treatment using Assistive, Adaptive, Supportive or Protective Equipment (ICD-10-PCS; principal; 2018-09-06)
PROC: F07L6YZ Therapeutic Exercise Treatment of Musculoskeletal System - Lower Back / Lower Extremity using Other Equipment (ICD-10-PCS; 2018-09-06)
PROC: F07Z8FZ Transfer Training Treatment using Assistive, Adaptive, Supportive or Protective Equipment (ICD-10-PCS; 2018-09-06)
PROC: F08Z0FZ Bathing/Showering Techniques Treatment using Assistive, Adaptive, Supportive or Protective Equipment (ICD-10-PCS; 2018-09-07)
PROC: F08Z1FZ Dressing Techniques Treatment using Assistive, Adaptive, Supportive or Protective Equipment (ICD-10-PCS; 2018-09-07)
DX: R53.1 Weakness (principal); J18.1 Lobar pneumonia, unspecified organism; K92.1 Melena; I13.0 Hypertensive heart and chronic kidney disease with heart failure and stage 1 through stage 4 chronic kidney disease, or unspecified chronic kidney disease; I50.9 Heart failure, unspecified; Z48.815 Encounter for surgical aftercare following surgery on the digestive system; E11.22 Type 2 diabetes mellitus with diabetic chronic kidney disease; N18.9 Chronic kidney disease, unspecified; I48.91 Unspecified atrial fibrillation; I35.1 Nonrheumatic aortic (valve) insufficiency; N40.0 Benign prostatic hyperplasia without lower urinary tract symptoms; D64.9 Anemia, unspecified; E03.9 Hypothyroidism, unspecified; I25.10 Atherosclerotic heart disease of native coronary artery without angina pectoris; E78.5 Hyperlipidemia, unspecified; Y95 Nosocomial condition; Z79.01 Long term (current) use of anticoagulants; Z87.891 Personal history of nicotine dependence; Z79.82 Long term (current) use of aspirin; Z95.0 Presence of cardiac pacemaker

== ENCOUNTER 2018-09-12 14:15 | Outpatient (CLI) | payer MEDICARE, MEDICAID | END 2018-09-12 14:16 | disposition home or self-care (01) | LOC: RAD 14:15 ==

== ENCOUNTER 2018-09-13 09:02 | Day surgery (SDC) | payer MEDICARE, MEDICAID ==
[2018-09-13 09:00] VITALS: BMI 26.3
--- NOTE | 2018-09-13 10:46 | CP.PCM.PN ---
Subjective - Date & Time of Evaluation Date of Evaluation: 09/13/18 Time of Evaluation: 10:42 - Subjective Subjective: Surgery: Dr. Lema Pt seen and examined. Resting comfortably in bed. Pt remains tired. No complaints of abdominal pain. Objective - Vital Signs/Intake and Output Vital Signs (last 24 hours): Temp Pulse Resp BP Pulse Ox 97.9 F 63 17 107/53 L 98 09/13/18 09:00 09/13/18 09:00 09/13/18 09:00 09/13/18 09:00 09/13/18 09:05 - Constitutional Appears: Non-toxic, No Acute Distress - Head Exam Head Exam: ATRAUMATIC, NORMOCEPHALIC - Eye Exam Eye Exam: EOMI - ENT Exam ENT Exam: Mucous Membranes Moist - Neck Exam Neck Exam: Full ROM - Respiratory Exam Respiratory Exam: NORMAL BREATHING PATTERN. absent: Accessory Muscle Use, Respiratory Distress - GI/Abdominal Exam GI & Abdominal Exam: Soft. absent: Distended, Firm, Guarding, Rigid, Tenderness, Rebound Additional comments: Incisions C/D/I - Extremities Exam Extremities Exam: absent: Calf Tenderness, Pedal Edema - Neurological Exam Neurological Exam: Alert, Awake, Oriented x3 Assessment and Plan - Assessment and Plan (Free Text) Assessment: 88M s/p open parker on 08/27/18, now w. anemia likely 2/2 UGI bleed -CT scan reviewed, awaiting official report -Pt for EGD today, f/u results -No plans for surgical intervention at this time -will continue to follow -d/w attending Chastity PGY4
[2018-09-13 12:27] VITALS: PULSE 61; RESP 16; TEMP 97.7; O2SAT 94
[2018-09-13 13:21] VITALS: BP 106/48
== END 2018-09-13 12:50 | disposition short-term general hospital (02) ==
LOC: ENDO 09:02
PROVIDERS: ATTEND Internal Medicine Gastroenterology
DX: K92.1 Melena (principal); K26.9 Duodenal ulcer, unspecified as acute or chronic, without hemorrhage or perforation; K29.30 Chronic superficial gastritis without bleeding; D50.0 Iron deficiency anemia secondary to blood loss (chronic); I10 Essential (primary) hypertension; I48.91 Unspecified atrial fibrillation; I25.10 Atherosclerotic heart disease of native coronary artery without angina pectoris
CPT/HCPCS: 43239; 72HRC

== ENCOUNTER 2018-09-13 13:14 | Inpatient (IN) | payer MEDICARE, MEDICAID ==
[2018-09-13 13:14] VITALS: PULSE 62
--- NOTE | 2018-09-13 13:48 | ED PDOC ---
Arrival/HPI - General Chief Complaint: GI Problem Time Seen by Provider: 09/13/18 13:15 Historian: Patient - History of Present Illness Narrative History of Present Illness (Text): 09/13/18 13:47 A 88 year old male, whose past medical history includes Atrial Fibrillation on Coumadin, pacemaker, CHF, diabetes, BPH, and hypertension, presents to the emergency department s/p cholecystectomy in [facility] with 2 gastric ulcers found earlier today. Patient has a history of GI bleeding and had an endoscopy today where the gastric ulcers were noticed. Patient denies any fever, chest pain, or any other complaints. PMD: Dr. Griggs Time/Duration: Other (earlier today) Symptom Onset: Sudden Symptom Course: Unchanged Activities at Onset: Light Context: Other ([facility]) Past Medical History - Provider Review Nursing Documentation Reviewed: Yes - Infectious Disease Hx of Infectious Diseases: None - Tetanus Immunization Tetanus Immunization: Unknown - Cardiac Hx Pacemaker: Yes (01/10/16 dr smith, [employer]) - Pulmonary Hx Respiratory Disorders: No - Neurological Hx Paralysis: No - HEENT Hx HEENT Disorder: No - Renal Hx Renal Disorder: No - Endocrine/Metabolic Hx Hypothyroidism: Yes - Hematological/Oncological Hx Blood Transfusions: No Hx Blood Transfusion Reaction: No (NA) - Integumentary Hx Dermatological Disorder: No - Musculoskeletal/Rheumatological Hx Musculoskeletal Disorders: Yes - Gastrointestinal Hx Gastrointestinal Disorders: No - Genitourinary/Gynecological Hx Reproductive Disorders: No - Psychiatric Hx Emotional Abuse: No Hx Physical Abuse: No Hx Substance Use: No - Past Surgical History Past Surgical History: No Previous - Surgical History Hx Cholecystectomy: Yes Hx Orthopedic Surgery: Yes (r knee sx) - Anesthesia Hx Anesthesia: Yes Hx Anesthesia Reactions: Yes (bradycardia, asystole) Hx Malignant Hyperthermia: No - Suicidal Assessment Feels Threatened In Home Enviroment: No Family/Social History - Physician Review Nursing Documentation Reviewed: Yes Family/Social History: No Known Family HX Smoking Status: Former Smoker Hx Alcohol Use: Yes (social) Hx Substance Use: No Hx Substance Use Treatment: No Allergies/Home Meds Allergies/Adverse Reactions: Allergies No Known Allergies Allergy (Verified 08/30/18 20:29) Home Medications: Home Meds Medication Instructions Recorded Confirmed Isosorbide Mononitrate [Isosorbide 1 tab PO DAILY 04/01/16 08/30/18 Mononitrate ER] Lisinopril 20 mg PO DAILY 04/01/16 08/30/18 Tamsulosin [Flomax] 0.4 mg PO DAILY 04/19/18 08/30/18 Review of Systems - Physician Review All systems were reviewed & negative as marked: Yes - Review of Systems Constitutional: absent: Fevers Cardiovascular: absent: Chest Pain Physical Exam - Physical Exam Narrative Physical Exam (Text): 09/13/18 13:50 Constitutional: No acute distress. Head: Normocephalic. Atraumatic. Eyes: PERRL. ENT: Moist mucous membranes. Neck: Supple. Cardiovascular: Regular rate. Chest: No tenderness. Respiratory: Clear to auscultation bilaterally. GI: Soft. Nontender. Nondistended. Back: No CVA tenderness. Musculoskeletal: No tenderness or swelling of extremities. Skin: No rash. Neurologic: Alert, no focal deficit. Vital Signs Reviewed: Yes Temperature: Afebrile Blood Pressure: Hypotensive Pulse: Regular Respiratory Rate: Normal Appearance: Positive for: Non-Toxic Medical Decision Making ED Course and Treatment: 09/13/18 13:50 Impression: 88 year old male presents to the emergency department s/p cholecystectomy in [facility] with 2 gastric ulcers found earlier today. Plan: -- Protonix injection -- Reassess and disposition Prior Visits: Notes and results from previous visits were reviewed. Progress Notes: 09/13/18 15:24 Dr. Griggs recommends admission to his service, agrees with Protonix. - Medication Orders Current Medication Orders: Discontinued Medications Pantoprazole Sodium (Protonix Inj) 80 mg IVP STAT STA Stop: 09/13/18 13:17 - Scribe Statement The provider has reviewed the documentation as recorded by the Ivory Collins All medical record entries made by the Ivory were at my direction and personally dictated by me. I have reviewed the chart and agree that the record accurately reflects my personal performance of the history, physical exam, medical decision making, and the department course for this patient. I have also personally directed, reviewed, and agree with the discharge instructions and disposition. Disposition/Present on Arrival - Present on Arrival Any Indicators Present on Arrival: No History of DVT/PE: No History of Uncontrolled Diabetes: No Urinary Catheter: No History of Decub. Ulcer: No History Surgical Site Infection Following: None - Disposition Have Diagnosis and Disposition been Completed?: Yes Diagnosis: GI bleed Disposition: HOSPITALIZED Disposition Time: 13:16 Patient Plan: Admission, Telemetry Condition: GUARDED
[2018-09-13 19:34] VITALS: BMI 26.3
[2018-09-13] MEDS ORDERED: Pneumococcal 23-Valent Vaccine IM ONE (19:34)
[2018-09-13] MEDS ORDERED: Influenza Vaccine 60 mcg/0.5 mL SYR (4YR UP) IM ONE (19:34)
--- NOTE | 2018-09-14 09:49 | CP.PCM.PN ---
<Bolivar Cabral - Last Filed: 09/14/18 09:46> Subjective - Date & Time of Evaluation Date of Evaluation: 09/14/18 Time of Evaluation: 09:46 - Subjective Subjective: Patient is doing well. No complaints. No acute overnight evetns. Afeb, HDS. Reports brown BM last night to me. Requesting food. 5pt ROS completed and negative except for above. Objective - Vital Signs/Intake and Output Vital Signs (last 24 hours): Temp Pulse Resp BP Pulse Ox 97.8 F 62 18 98/56 L 95 09/14/18 06:00 09/14/18 06:00 09/14/18 06:00 09/14/18 06:00 09/14/18 06:00 Intake and Output: 09/14/18 09/14/18 06:59 18:59 Intake Total 300 Output Total 600 Balance -300 - Medications Medications: Current Medications Pantoprazole Sodium (Protonix Ec Tab) 40 mg PO 0600 SURI Sucralfate (Carafate Oral Susp) 1 gm PO 0630,1130,1630,2200 SURI - Constitutional Appears: Non-toxic, No Acute Distress - Head Exam Head Exam: ATRAUMATIC, NORMAL INSPECTION - ENT Exam ENT Exam: Mucous Membranes Moist, Normal Exam - Respiratory Exam Respiratory Exam: Clear to Ausculation Bilateral, NORMAL BREATHING PATTERN - Cardiovascular Exam Cardiovascular Exam: REGULAR RHYTHM, +S1, +S2 - GI/Abdominal Exam GI & Abdominal Exam: Soft, Normal Bowel Sounds. absent: Tenderness - Extremities Exam Extremities Exam: Normal Inspection. absent: Pedal Edema - Neurological Exam Neurological Exam: Alert, Awake, Oriented x3 - Psychiatric Exam Psychiatric exam: Normal Affect, Normal Mood - Skin Skin Exam: Dry, Normal Color Assessment and Plan - Assessment and Plan (Free Text) Assessment: 88 yo Hisp Male with Afib (on warfarin), CAD (Rx alone, no stents), HTN, Bladder Mass found to have decreasing Hgb and black stools. # GI Bleed: Suspect Upper source given melena, increased BUN. Has risk factors of warfarin, ASA and possible recent enoxaparin/heparin bridge. Hgb downtrending over last few days from 11 to 8.9. Vitals stable at this time. No prior endoscopic evaluations. PUD vs Hemobilia given recent cholecystecomy vs other. # AFib: On warfarin. INR 1.74 # CAD: Med manangement only, no stents # s/p Open Cholecystectomy 08/27/18 Plan: - s/p EGD 09/13/18. Large Duodenal ulcers - PENDING biopsies, ?H. pylori. - Regular modified diet. - PPI 40 PO daily - Trend Hgb - PRBC transfusion per primary - Monitor CBC, CMP, INR - OK to start warfarin Pt seen and examined with Dr. Corrales; please see attestation for further recs/changes. <Hammad Corrales - Last Filed: 09/14/18 09:55> Objective - Vital Signs/Intake and Output Vital Signs (last 24 hours): Temp Pulse Resp BP Pulse Ox 97.8 F 62 18 98/56 L 95 09/14/18 06:00 09/14/18 06:00 09/14/18 06:00 09/14/18 06:00 09/14/18 06:00 Intake and Output: 09/14/18 09/14/18 06:59 18:59 Intake Total 300 Output Total 600 Balance -300 - Medications Medications: Current Medications Pantoprazole Sodium (Protonix Ec Tab) 40 mg PO 0600 SURI Sucralfate (Carafate Oral Susp) 1 gm PO 0630,1130,1630,2200 SURI Attending/Attestation - Attestation I have personally seen and examined this patient.: Yes I have fully participated in the care of the patient.: Yes I have reviewed all pertinent clinical information, including history, physical exam and plan: Yes Notes (Text): 09/14/18 09:52 I have seen and examined patient with GI fellow. No acute events overnight, he is seen resting in bed comfortably. He had a normal brown colored bowel movement yesterday and denies abdominal pain, nausea, vomiting, fever/chills. Tolerating PO diet without difficulty. Atrial fibrillation on coumadin CAD HTN s/p recent cholecystectomy Abdominal pain, melena - s/p EGD yesterday showing two large clean based duodenal ulcers, no active bleeding noted - Diet as tolerated - Continue with PPI and carafate regimen - Continue to monitor H/H - Awaiting EGD biopsy results - From GI standpoint ok to resume coumadin if clinically necessary - Will continue to monitor patient clinical course
[2018-09-14 10:16] LABS: ALBUMIN 3.3 g/dL (3.0-4.8); CALCIUM 8.6 mg/dL (8.4-10.5)
[2018-09-14 10:30] LABS: HEMOGLOBIN 7.1 g/dL (14.0-18.0); MEAN CELL VOLUME 106.1 fl (80.0-105.0); MEAN CORPUSCULAR HEMOGLOBIN 33.5 pg (25.0-35.0); MEAN CORPUSCULAR HGB CONC 31.6 g/dl (31.0-37.0); MEAN PLATELET VOLUME 10.2 fl (7.0-11.0); RBC 2.12 10^6/uL (3.5-6.1); RED CELL DISTRIBUTION WIDTH 19.2 % (11.5-14.5); WHITE BLOOD COUNT 12.7 10^3/uL (4.5-11.0)
[2018-09-14 10:40] LABS: INR 1.39; PROTHROMBIN TIME 15.7 SECONDS (9.4-12.5)
[2018-09-14] MEDS ORDERED: cefTRIAXone 1 gm 1 GM/100 ML BAG IVPB SCH (12:00)
[2018-09-14] MEDS: Sucralfate 1 gm/10 ml Oral Susp UD PO SCH ×3 (13:44→21:57)
--- NOTE | 2018-09-14 18:50 | CARD ---
APPROVED REPORT Date of service: 09/13/2018 EKG Measurement Heart [id number] <Conclusion> Demand ventricular pacemaker with occasional premature ventricular complexes Baseline Atrial fibrillation Abnormal ECG
--- NOTE | 2018-09-14 19:51 | HP ---
DATE OF EXAM: 09/14/2018 HISTORY OF PRESENT ILLNESS: I know Ricardo for many, many years and he was also just in the hospital for an acute cholecystitis and he had an acute cholecystectomy, which an open cholecystectomy, then there was a problem on the operation table, we have to wait an hour and a half for the hepatobiliary surgeon to get their to fix the problem, then he went to TCU, had a rapid response, came back to the hospital, improved, and back to the TCU. At the end of the 8 days at the TCU end up having a GI bleed. He went to endoscopy, was sent to the emergency room and now he is back in the hospital side. His hemoglobin is low, we are going to transfuse him 2 units. He is uncomfortable in bed. He is an 88-year-old man, he is having issue. We are holding his Coumadin at this time. He is having a GI bleed down to a 7.6 hemoglobin. PAST MEDICAL HISTORY: AFib, on Coumadin; pacemaker; CHF; diabetes; BPH; and hypertension. Status post cholecystectomy TCU. He had two gastric ulcers that were found and history of GI bleeding. He is comfortable in bed, he is tired, little bit upset about the back and forth, but that is the nature of his issue. He has a pacemaker, hypothyroid, and musculoskeletal issues. He had a cholecystectomy and right knee surgery. He has bradycardia, he has been asystole in the past. FAMILY HISTORY: No known family history. SOCIAL HISTORY: Former smoker, still drinks wine every now and then, although he told me quit a month ago. No substance abuse. ALLERGIES: NO KNOWN DRUG ALLERGIES. MEDICATIONS: He is on Imdur, lisinopril, Flomax, and Coumadin, we are holding the Coumadin. REVIEW OF SYSTEMS: At this time resting in bed. He is a little bit tired. No acute vision or hearing changes. No sore throat. No neck pain. No chest pain. No shortness of breath. No abdominal pain. No nausea, vomiting, constipation, or diarrhea. No extremity pain. He is a little bit weak. PHYSICAL EXAMINATION: VITAL SIGNS: He has a 97.8 temperature, 62 pulse, 98/56 blood pressure, 18 respiratory rate, and 95% O2 sat on room air. HEENT: His head is atraumatic and normocephalic. Extraocular muscles are intact. Pupils reactive to light and accommodation. Throat is dry. NECK: Supple. HEART: Regular rate. LUNGS: Decreased breath sounds bilaterally. ABDOMEN: He does have a soft abdomen has had surgery and was opened and clementina, which were taken out 3-4 days ago. He has positive bowel sounds. No pain. He is having dark stools. EXTREMITIES: No edema of the extremities. NEUROLOGIC: Alert and oriented x3. SKIN: For the most part, the skin is intact. LABORATORY DATA: He had some tests done. He has 136 sodium, potassium 4.6, BUN 56, creatinine 1.8, GFR is 30, sugar is 124, calcium 8.6, total bili is 1.3, AST is 35, ALT is 45, alk phos is 84, total protein 6.6, and albumin is 3.3. White count is 12.7. He has a 7.1 hemoglobin and he will be transfused 2 units of packed red blood cells, hematocrit 22.5 and platelets of 296. INR is 1.39. He is off Coumadin also. ASSESSMENT AND PLAN: He is having a gastrointestinal bleed. We will continue with aggressive treatment and care on Ricardo Sr, transfuse him and watch him closely. Thank you very much. Dieter Griggs DO [facility]
--- NOTE | 2018-09-14 20:17 | CON ---
DATE OF CONSULTATION: 09/14/2018 The patient is in Room 276, Bed 1. CHIEF COMPLAINT: Elevated white count of 12,700 x1 day. HISTORY OF PRESENT ILLNESS: This is an 88-year-old male with history of congestive heart failure, aortic valve insufficiency, congestive heart failure, urinary bladder mass, recent right healthcare-associated pneumonia, renal disease, hypothyroidism, atrial fibrillation, GI bleed. The patient also had acute cholecystitis and recent cholecystectomy. He was admitted with a GI bleed, now has leukocytosis, and infectious disease consultation requested. The patient has mild shortness of breath, minimal cough. No fevers, no chills. No dysuria or frequency. No headaches or blurred vision. PAST MEDICAL HISTORY: Significant for heart failure, aortic insufficiency, renal disease, hypothyroidism, atrial fibrillation, GI bleed. PAST SURGICAL HISTORY: Recent acute cholecystitis, cholecystectomy, and pacemaker and hernia. MEDICATIONS: Reviewed. ALLERGIES: THE PATIENT HAS NO KNOWN ALLERGIES. REVIEW OF SYSTEMS: A 12-point review of systems is performed. PHYSICAL EXAMINATION: VITAL SIGNS: The patient's temperature is 97, blood pressure is 102/50, respiratory rate is 18, heart rate of 62. HEENT: Unremarkable. NECK: Supple. LUNGS: Have decreased breath sounds. HEART: Normal S1, S2. ABDOMEN: Soft, nontender. No organomegaly, no rebound, no guarding, no masses. The incision site is clean. LABORATORY EXAMINATION: White count of 12,700, hemoglobin of 7. Coagulation is noted. Creatinine is 1.8. Microbiology is reviewed. ASSESSMENT/PLAN: This is an 88-year-old male, status post recent cholecystectomy, congestive heart failure, aortic insufficiency, healthcare-associated pneumonia, renal disease, now with #1 is leukocytosis in the face of GI bleed. We will treat the patient with doxy and Maxipime. Must rule out healthcare-associated pneumonia versus urine as the source versus collection in the GI tract at this time. At this time, we will order blood cultures, urine culture, sputum cultures, urinalysis, procalcitonin, chest x-ray, and start the patient on doxy and cefepime pending initial workup results. We will make further recommendations upon availability of initial results. Ebenezer Boghossian, MD [facility] # [id number]
[2018-09-14] MEDS: Cefepime 1gm in NS 100ml 1 GM/100 ML BAG IVPB SCH (21:56)
[2018-09-14 23:59] LABS: URINE BILIRUBIN NEGATIVE (NEGATIVE); URINE BLOOD MODERATE (NEGATIVE); URINE GLUCOSE (UA) NEGATIVE (NEGATIVE); URINE LEUKOCYTE ESTERASE MODERATE Leu/uL (NEGATIVE); URINE PROTEIN TRACE mg/dL (<30 mg/dL); URINE UROBILINOGEN 0.2 E.U./dL (<1 E.U./dL)
[2018-09-15 00:02] LABS: URINE APPEARANCE SL CLOUDY (CLEAR); URINE COLOR YELLOW (YELLOW)
[2018-09-15 00:23] LABS: URINE BACTERIA MOD /hpf; URINE EPITHELIAL CELLS 0 - 2 /hpf (0-5)
[2018-09-15] MEDS: Sucralfate 1 gm/10 ml Oral Susp UD PO SCH ×4 (07:15→21:07)
[2018-09-15] MEDS: Pantoprazole 40 mg EC Tab PO SCH (07:17)
[2018-09-15 07:21] LABS: ALBUMIN 3.3 g/dL (3.0-4.8); CALCIUM 8.4 mg/dL (8.4-10.5)
[2018-09-15 07:41] LABS: HEMOGLOBIN 9.8 g/dL (14.0-18.0); MEAN CORPUSCULAR HEMOGLOBIN 32.8 pg (25.0-35.0); MEAN CORPUSCULAR HGB CONC 32.8 g/dl (31.0-37.0); MEAN PLATELET VOLUME 10.4 fl (7.0-11.0); RBC 2.99 10^6/uL (3.5-6.1); RED CELL DISTRIBUTION WIDTH 21.4 % (11.5-14.5); WHITE BLOOD COUNT 11.8 10^3/uL (4.5-11.0)
--- NOTE | 2018-09-15 09:17 | CP.PCM.PN ---
Subjective - Date & Time of Evaluation Date of Evaluation: 09/15/18 Time of Evaluation: 09:13 - Subjective Subjective: Patient seen and examined, resting comfortably in bed. No acute events overnight, he reports bowel movement this morning brown in color. He denies abdominal pain, nausea, vomiting, fever/chills. Tolerating PO diet without difficulty. Review of vitals from today are normal. 12 point review of systems performed, negative aside from mentioned above. Objective - Vital Signs/Intake and Output Vital Signs (last 24 hours): Temp Pulse Resp BP Pulse Ox 98.5 F 66 19 110/54 L 95 09/15/18 06:00 09/15/18 06:00 09/15/18 06:00 09/15/18 06:00 09/15/18 06:00 Intake and Output: 09/15/18 09/15/18 06:59 18:59 Intake Total 1730 Output Total 1350 Balance 380 - Medications Medications: Current Medications Doxycycline Hyclate (Doryx) 100 mg PO Q12 [facility]; Protocol Stop: 09/23/18 22:01 Last Admin: 09/14/18 21:57 Dose: 100 mg Cefepime HCl (Maxipime 1gm) 1 gm in 100 mls @ 100 mls/hr IVPB Q12 [facility]; Protocol Stop: 09/23/18 22:01 Last Admin: 09/14/18 21:56 Dose: 100 mls/hr Levothyroxine Sodium (Synthroid) 50 mcg PO DAILY [facility] Pantoprazole Sodium (Protonix Ec Tab) 40 mg PO 0600 [facility] Last Admin: 09/15/18 07:17 Dose: 40 mg Sucralfate (Carafate Oral Susp) 1 gm PO 0630,1130,1630,2200 [facility] Last Admin: 09/15/18 07:15 Dose: 1 gm Tamsulosin HCl (Flomax) 0.4 mg PO DAILY [facility] - Labs Labs: 09/15/18 06:30 09/15/18 06:30 PT 15.7 SECONDS (9.4-12.5) H 09/14/18 09:50 INR 1.39 09/14/18 09:50 - Constitutional Appears: Non-toxic, No Acute Distress - Head Exam Head Exam: NORMAL INSPECTION - Eye Exam Eye Exam: EOMI, Normal appearance - ENT Exam ENT Exam: Mucous Membranes Moist - Respiratory Exam Respiratory Exam: Clear to Ausculation Bilateral - Cardiovascular Exam Cardiovascular Exam: +S1, +S2 - GI/Abdominal Exam GI & Abdominal Exam: Soft, Normal Bowel Sounds Additional comments: non tender to palpation in four quadrants - Extremities Exam Extremities Exam: Full ROM, Normal Capillary Refill, Normal Inspection. absent: Joint Swelling, Pedal Edema - Skin Skin Exam: Dry, Intact, Normal Color, Warm Assessment and Plan - Assessment and Plan (Free Text) Assessment: Atrial fibrillation CAD HTN s/p recent cholecystectomy Anemia, melena s/p EGD showing two large duodenal ulcers, clean based without active bleeding Plan: - H/H stable s/p PRBC transfusion, continue to monitor - Continue with PPI and carafate regimen - Diet as tolerated - Awaiting EGD biopsy results - From GI standpoint ok to resume coumadin if clinically warranted - No further planned GI intervention, will sign off case. Please reconsult as necessary, thank you.
[2018-09-15] MEDS: Cefepime 1gm in NS 100ml 1 GM/100 ML BAG IVPB SCH ×2 (11:13→21:07)
[2018-09-15] MEDS: Levothyroxine 50 MCG TAB PO SCH (11:25)
--- NOTE | 2018-09-15 12:03 | PN ---
DATE: 09/15/2018 SUBJECTIVE: I was hoping he was doing better and he stopped bleeding and now he has a confusion going on, altered mental status. I called in Neurology, ordered a CT scan of his head. He has been off his anticoagulants due to his bleeding, so I put him on Lovenox now. His INR was still a little bit prolonged which is good. He is alert. He knew me when I saw him. He is kind of oriented for a second when he saw me. I later ordered a CT scan of his head and a Neurology consult. He is being seen by Infectious Disease and GI. PHYSICAL EXAMINATION: VITAL SIGNS: 98.5 temperature, 66 pulse, 110/54 blood pressure, 19 respiratory rate, 95% saturation on room air. GENERAL: At this time, he is looking at me. He is asking me appropriate questions. HEAD: atraumatic, normocephalic. HEART: Regular rate. LUNGS: Decreased breath sounds. ABDOMEN: Soft. EXTREMITIES: No edema. NEUROLOGIC: He was confused. LABORATORY DATA: He has a white count of 11.8 and 9.8 hemoglobin after transfusion, 29.9 hematocrit with 263 platelets. INR is 1.39. We will check it again. 137 sodium, potassium 4.5, BUN 36, creatinine 1.5 better, GFR is 44, sugar is 110, calcium is 8.4, total bilirubin is 1.8, AST is 32, ALT is 43, alk phos 47, total protein 6.6. IMPRESSION AND PLAN: On lab and paper, he is doing better, but he is mentally a little off. He is on Carafate, Doryx, Flomax, Lovenox. I added Maxipime, Protonix and Synthroid. He is off his Coumadin at this time due to his GI bleed. He is status post open cholecystectomy, status post GI bleeding and transfusions, and now he has got altered mental status. We will continue with aggressive treatment and care on Ricardo Sr. I am quite concerned about him now. Hopefully he will come around. He has done this once before a week ago with change in mentation. Maybe it is the hospital. I will be aggressive with him. Dieter Griggs DO [facility]
--- NOTE | 2018-09-15 12:58 | PN ---
DATE: 09/15/2018 SUBJECTIVE: The patient is in bed in no acute distress, nontoxic. PHYSICAL EXAMINATION: VITAL SIGNS: Temperature is 98, blood pressure is 110/50, respiratory rate of 19, heart rate of 66. HEENT: Unremarkable. NECK: Supple. LUNGS: Have decreased breath sounds. HEART: Normal S1, S2. ABDOMEN: Soft, nontender. LABORATORY EXAMINATION: Reveals a white count of 11,800, hemoglobin of 9. Chemistries are noted. BUN of 36, creatinine of 1.5. Urinalysis is noted and procalcitonin is 0.06. Microbiology is pending. The patient had a chest x-ray which is also pending. ASSESSMENT AND PLAN: This is an 88-year-old male who was seen earlier this morning in room 276, bed 1 with status post recent cholecystectomy, congestive heart failure, aortic insufficiency, healthcare-associated disease, renal disease now with leukocytosis in face of gastrointestinal bleed, day #2 of doxycycline and Maxipime. Must rule out healthcare-associated pneumonia and blood cultures, urine cultures, chest x-ray, sputum cultures pending. Nasal methicillin-resistant Staphylococcus aureus screen is pending. On day #2 of doxycycline and cefepime with this morning's white count is down to 11,800, etiology of leukocytosis is pending workup. We will follow with you. Ebenezer Ledesma MD
--- NOTE | 2018-09-15 13:03 | RAD ---
Date of service: 09/15/2018 HISTORY: inc wbc COMPARISON: Comparison is made to the previous study dated 09/02/2018 TECHNIQUE: Chest PA and lateral FINDINGS: LUNGS: Interval improvement in the previously noted opacity and infiltrate at the right lower lung with residual hazy densities. Otherwise no significant interval changes. PLEURA: No significant pleural effusion identified. No pneumothorax apparent. CARDIOVASCULAR: No aortic atherosclerotic calcification present. Left-sided single wire pacemaker seen in place. Normal cardiac size. No pulmonary vascular congestion. OSSEOUS STRUCTURES: No significant abnormalities. VISUALIZED UPPER ABDOMEN: Normal. OTHER FINDINGS: None. IMPRESSION: Interval improvement in the previously seen heterogeneous opacity and infiltrate at the right lower lung. Residual hazy opacity at the right lower lobe.
[2018-09-15] MEDS: Enoxaparin 30 mg Syringe SC SCH (15:49)
--- NOTE | 2018-09-15 16:32 | CT ---
Date of service: 09/15/2018 PROCEDURE: CT HEAD WITHOUT CONTRAST. HISTORY: ams COMPARISON: Comparison is made to the previous study dated 09/01/2018 TECHNIQUE: Axial computed tomography images were obtained through the head/brain without intravenous contrast. Radiation dose: Total exam DLP = 934.31 mGy-cm. This CT exam was performed using one or more of the following dose reduction techniques: Automated exposure control, adjustment of the mA and/or kV according to patient size, and/or use of iterative reconstruction technique. FINDINGS: HEMORRHAGE: No evidence of acute intracranial hemorrhage. Linear [place] noted along the bilateral extra-axial convexity likely represent dural thickening. Findings have not significantly changed since the previous exam. BRAIN: No mass effect or edema. Volume loss and chronic microvascular white matter ischemic disease again noted. 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 VENTRICLES: Unremarkable. No hydrocephalus. CALVARIUM: Unremarkable. PARANASAL SINUSES: Unremarkable as visualized. No significant inflammatory changes. MASTOID AIR CELLS: Unremarkable as visualized. No inflammatory changes. OTHER FINDINGS: None. IMPRESSION: No evidence of acute intracranial hemorrhage intracranial collection mass effect or midline shift. No significant interval changes noted since the previous exam.
[2018-09-16] MEDS: Pantoprazole 40 mg EC Tab PO SCH (05:48)
[2018-09-16] MEDS: Sucralfate 1 gm/10 ml Oral Susp UD PO SCH ×4 (05:48→22:20)
[2018-09-16 07:12] LABS: HEMOGLOBIN 9.6 g/dL (14.0-18.0); MEAN CORPUSCULAR HGB CONC 32.7 g/dl (31.0-37.0); MEAN PLATELET VOLUME 10.4 fl (7.0-11.0); RBC 2.91 10^6/uL (3.5-6.1)
[2018-09-16 07:50] LABS: ALB/GLOB RATIO 0.9 (1.1-1.8); ALBUMIN 3.2 g/dL (3.0-4.8); ALT/SGPT 34 U/L (7-56); AST/SGOT 31 U/L (17-59); BLOOD UREA NITROGEN 29 mg/dL (7-21); CALCIUM 8.4 mg/dL (8.4-10.5); GFR NON-AFRICAN AMERICAN 52
--- NOTE | 2018-09-16 10:06 | CARD ---
APPROVED REPORT Date of service: 09/15/2018 EKG Measurement Heart [id number] <Conclusion> Electronic ventricular pacemaker
[2018-09-16 12:08] VITALS: RESP 18
[2018-09-16] MEDS: Cefepime 1gm in NS 100ml 1 GM/100 ML BAG IVPB SCH ×2 (12:17→22:19)
[2018-09-16] MEDS: Enoxaparin 30 mg Syringe SC SCH (12:17)
[2018-09-16] MEDS: Levothyroxine 50 MCG TAB PO SCH (12:17)
--- NOTE | 2018-09-16 12:20 | PN ---
DATE: 09/16/2018 SUBJECTIVE: He has had assists with him. He is also a little bit more alert, and oriented. He does not want to eat breakfast, which is not his baseline. He normally has a very good appetite. He is on IV antibiotics. He had a chest x-ray that shows improvement. He had a CAT scan of the head which showed no evidence of acute intracranial hemorrhage or changes, because he was change in mentation the other day. PHYSICAL EXAMINATION VITAL SIGNS: He has a 98 temperature, 63 pulse, 141/42 blood pressure, 19 respiratory rate, 98% O2 sat on 2 liters. HEENT: His head is atraumatic, normocephalic. HEART: Regular rate. LUNGS: Decreased breath sounds, but clear. ABDOMEN: Soft. EXTREMITIES: No edema. LABORATORY DATA: Chest x-ray is improving. He is more alert, more oriented. Just weak. He has got 8 white count, hemoglobin is 9.6 after transfusion, hematocrit 29.4 and platelets are 248. INR is 1.39. He has a sodium of 138, potassium 4.1, BUN is 29, creatinine 1.3, GFR is 52, sugar is 101, calcium is 8.4, total bili is 1.3, AST is 31, ALT is 34 and alk phos 76. Troponin I 0.03. Total protein 6.6. Urine, he has got a infection. Improving pneumonia. He did have a GI bleed, anemia, status post cholecystectomy. He is 88-year-old trying to get through all this postop issues. He has got AFib, CAD, hypertension, anemia with melena, two large duodenal ulcers. We will put him back on his Coumadin as per GI. Hopefully, he will improve with the IV antibiotics as per Infectious Disease. Dieter Griggs DO [facility]
--- NOTE | 2018-09-16 15:04 | CP.PCM.CON ---
<Wei Post - Last Filed: 09/16/18 14:52> History of Present Illness - History of Present Illness History of Present Illness: Neurology Consultation (Dr. Bird's Service) Requesting Physician: Dr. Griggs CC: Intermittent AMS HPI: Mr. Sr is an 88 year old male with a past medical history significant for atrial fibrillation on coumadin, pacemaker, aortic insufficiency, and CKD who presented with GI bleed. Neurology was consulted for intermittent AMS. Patient was originally admitted for cholecystitis and had cholecystectomy. Afterwards patient was discharged to the TCU for further physical conditioning. While in TCU, patient had an [employer] and was sent to the ED for further evaluation. Patient was then transferred back to the TCU but had a GI hemorrhage and was admitted to the telemetry floor pending further GI evaluation. During this, patient was noted to intermittently have AMS with periods of confusion and even unresponsiveness. Neurology was consulted for similar complaints after AUTOM[employer]IC SEAMER was called. Work up at that time was negative. Patient is alert and oriented to person, place, time and event currently. Patient denies any complaints and 12 point ROS unremarkable at this time. PMH: As stated above PSH: Cholecystectomy, Pacemaker Family History: Denies Social History: Denies tobacco, alcohol or illicit drug abuse Allergies: NKDA Home Medications: As per OCT PMD: Dr. Griggs Review of Systems - Review of Systems Review of Systems: As stated in HPI, otherwise negative Past Patient History - Infectious Disease Hx of Infectious Diseases: None - Tetanus Immunizations Tetanus Immunization: Unknown - Past Social History Smoking Status: Former Smoker - CARDIAC Hx Cardiac Disorders: Yes (afib) Hx Angina: Yes Hx Cardia Arrhythmia: Yes Hx Congestive Heart Failure: Yes Hx Hypertension: Yes Hx Pacemaker: Yes (01/10/16 dr smith, [employer]) Hx Peripheral Edema: Yes (ble +1) Hx Peripheral Vascular Disease: Yes - PULMONARY Hx Respiratory Disorders: Yes Hx Bronchitis: Yes - NEUROLOGICAL Hx Neurological Disorder: No - HEENT Hx HEENT Problems: Yes ([place]) - RENAL Hx Chronic Kidney Disease: No - ENDOCRINE/METABOLIC Hx Endocrine Disorders: Yes Hx Diabetes Mellitus Type 2: Yes Hx Hypothyroidism: Yes - HEMATOLOGICAL/ONCOLOGICAL Hx Blood Disorders: No - INTEGUMENTARY Hx Dermatological Problems: Yes Other/Comment: 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, dry skin to feet, dry thick toenails both feet, and b/l bunyons, multiple skin discolorations b/l arms, healing surgical sicisions to abd x4, dark skin to buttocks - MUSCULOSKELETAL/RHEUMATOLOGICAL Hx Falls: No - GASTROINTESTINAL Hx Gastrointestinal Disorders: Yes (gi bleed) Hx Gall Bladder Disease: Yes (gallstones) Other/Comment: endo today 09/13/18 dx gastric ulcers x2 - GENITOURINARY/GYNECOLOGICAL Hx Genitourinary Disorders: Yes (retention) Hx Hematuria: Yes 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) Hx Urinary Tract Infection: Yes - PSYCHIATRIC Hx Substance Use: No - SURGICAL HISTORY Hx Surgeries: Yes Hx Appendectomy: Yes Hx Cardiac Catheterization: Yes (09/05/18) Hx Cholecystectomy: Yes Hx Orthopedic Surgery: Yes (r knee sx) - ANESTHESIA Hx Anesthesia: Yes Hx Anesthesia Reactions: Yes (bradycardia, asystole) Hx Malignant Hyperthermia: No Meds Allergies/Adverse Reactions: Allergies Allergy/AdvReac Type Severity Reaction Status Date / Time No Known Allergies Allergy Verified 08/30/18 20:29 - Medications Medications: Current Medications Doxycycline Hyclate (Doryx) 100 mg PO Q12 [facility]; Protocol Stop: 09/23/18 22:01 Last Admin: 09/16/18 12:17 Dose: 100 mg Enoxaparin Sodium (Lovenox) 30 mg SC DAILY [facility]; Protocol Last Admin: 09/16/18 12:17 Dose: 30 mg Cefepime HCl (Maxipime 1gm) 1 gm in 100 mls @ 100 mls/hr IVPB Q12 [facility]; Protocol Stop: 09/23/18 22:01 Last Admin: 09/16/18 12:17 Dose: 100 mls/hr Levothyroxine Sodium (Synthroid) 50 mcg PO DAILY [facility] Last Admin: 09/16/18 12:17 Dose: 50 mcg Pantoprazole Sodium (Protonix Ec Tab) 40 mg PO 0600 [facility] Last Admin: 09/16/18 05:48 Dose: 40 mg Sucralfate (Carafate Oral Susp) 1 gm PO 0630,1130,1630,2200 [facility] Last Admin: 09/16/18 12:16 Dose: 1 gm Tamsulosin HCl (Flomax) 0.4 mg PO DAILY [facility] Last Admin: 09/16/18 12:17 Dose: 0.4 mg Warfarin Sodium (Coumadin) 4 mg PO 1800 [facility] Physical Exam - Constitutional Appears: Non-toxic, No Acute Distress - Head Exam Head Exam: ATRAUMATIC, NORMOCEPHALIC - Eye Exam Eye Exam: EOMI, Normal appearance, PERRL Pupil Exam: NORMAL ACCOMODATION - Neck Exam Neck exam: Positive for: Full Rom - Respiratory Exam Respiratory Exam: NORMAL BREATHING PATTERN - Cardiovascular Exam Cardiovascular Exam: REGULAR RHYTHM - GI/Abdominal Exam GI & Abdominal Exam: Normal Bowel Sounds, Soft. absent: Tenderness - Neurological Exam Neurological exam: Alert, CN II-XII Intact, Oriented x3, Reflexes Normal - Expanded Neurological Exam Expanded Patient oriented to: person, place, time Cranial nerves: EOM's Intact: Normal, Facial [place] w/Forehead Movement: Normal, Facial [place] w/o Forehead Movement: Normal, Facial Sensation: Normal, Gag Reflex: Normal, Nystagmus: Normal, Tongue Deviation: Normal Cerebellar Function: Finger to Nose: Normal, Heel to [place]: Normal Sensory exam: Lower Extremity Light Touch: Normal, Upper Extremity Light Touch: Normal Neuro motor strength exam: Left Upper Extremity: 5, Right Upper Extremity: 5, Left Lower Extremity: 5, Right Lower Extremity: 5 Coma Scale Eye Opening: SPONTANEOUS Coma Scale Motor Response: OBEYS COMMANDS Coma Scale Verbal: Oriented Coma Scale Total: 15 - Psychiatric Exam Psychiatric exam: Normal Affect, Normal Mood - Skin Skin Exam: Dry, Warm Results - Vital Signs Recent Vital Signs: Last Vital Signs Temp 97 F L 09/16/18 12:00 Pulse 61 09/16/18 12:00 Resp 18 09/16/18 12:00 BP 139/64 09/16/18 12:00 Pulse Ox 98 09/16/18 05:45 - Labs Result Diagrams: 09/16/18 06:50 09/16/18 06:50 Labs: Laboratory Results - last 24 hr 09/15/18 09/15/18 09/15/18 07:26 11:14 16:34 WBC RBC Hgb Hct MCV MCH MCHC RDW Plt Count MPV Sodium Potassium Chloride Carbon Dioxide Anion Gap BUN Creatinine Est GFR ( Amer) Est GFR (Non-Af Amer) POC Glucose (mg/dL) 126 H 111 H 121 H Random Glucose Calcium Total Bilirubin AST ALT Alkaline Phosphatase Troponin I Total Protein Albumin Globulin Albumin/Globulin Ratio 09/15/18 09/16/18 09/16/18 19:00 06:50 06:50 WBC 8.0 D RBC 2.91 L Hgb 9.6 L Hct 29.4 L MCV 101.0 MCH 33.0 MCHC 32.7 RDW 21.0 H Plt Count 248 MPV 10.4 Sodium 138 Potassium 4.1 Chloride 107 Carbon Dioxide 25 Anion Gap 10 BUN 29 H Creatinine 1.3 Est GFR ( Amer) > 60 Est GFR (Non-Af Amer) 52 POC Glucose (mg/dL) Random Glucose 101 Calcium 8.4 Total Bilirubin 1.3 AST 31 ALT 34 Alkaline Phosphatase 76 Troponin I 0.03 D Total Protein 6.6 Albumin 3.2 Globulin 3.4 Albumin/Globulin Ratio 0.9 L 09/16/18 09/16/18 07:09 11:19 WBC RBC Hgb Hct MCV MCH MCHC RDW Plt Count MPV Sodium Potassium Chloride Carbon Dioxide Anion Gap BUN Creatinine Est GFR ( Amer) Est GFR (Non-Af Amer) POC Glucose (mg/dL) 100 133 H Random Glucose Calcium Total Bilirubin AST ALT Alkaline Phosphatase Troponin I Total Protein Albumin Globulin Albumin/Globulin Ratio Assessment & Plan - Assessment and Plan (Free Text) Assessment: 88 year old male with a past medical history significant for atrial fibrillation on coumadin, pacemaker, aortic insufficiency, and CKD who presented with GI bleed. Neurology was consulted for intermittent AMS. Plan: -CT Head showed no acute intracranial abnormalities -Previous Routine EEG without abnormalities, epileptic activity or seizures -MRI unobtainable due to pacemaker -Current presentation likely secondary to and consistent with dementia -Start Aricept HS and Seroquel HS -Continue daily low dose ASA -Vitamin B12 and Folate pending -Further recommendations as per Dr. Bird Patient seen and case discussed with attending, Dr. Bird - Date & Time Date: 09/16/18 Time: 15:09 <Edie Bird - Last Filed: 09/16/18 23:52> Meds - Medications Medications: Current Medications Donepezil HCl (Aricept) 5 mg PO HS [facility] Last Admin: 09/16/18 22:20 Dose: 5 mg Doxycycline Hyclate (Doryx) 100 mg PO Q12 [facility]; Protocol Stop: 09/23/18 22:01 Last Admin: 09/16/18 22:19 Dose: 100 mg Enoxaparin Sodium (Lovenox) 30 mg SC DAILY [facility]; Protocol Last Admin: 09/16/18 12:17 Dose: 30 mg Cefepime HCl (Maxipime 1gm) 1 gm in 100 mls @ 100 mls/hr IVPB Q12 [facility]; Protocol Stop: 09/23/18 22:01 Last Admin: 09/16/18 22:19 Dose: 100 mls/hr Levothyroxine Sodium (Synthroid) 50 mcg PO DAILY [facility] Last Admin: 09/16/18 12:17 Dose: 50 mcg Pantoprazole Sodium (Protonix Ec Tab) 40 mg PO 0600 [facility] Last Admin: 09/16/18 05:48 Dose: 40 mg Quetiapine Fumarate (Seroquel) 25 mg PO HS [facility]; Protocol Last Admin: 09/16/18 22:20 Dose: 25 mg Sucralfate (Carafate Oral Susp) 1 gm PO 0630,1130,1630,2200 [facility] Last Admin: 09/16/18 22:20 Dose: 1 gm Tamsulosin HCl (Flomax) 0.4 mg PO DAILY [facility] Last Admin: 09/16/18 12:17 Dose: 0.4 mg Warfarin Sodium (Coumadin) 4 mg PO 1800 [facility] Last Admin: 09/16/18 18:04 Dose: 4 mg Results - Vital Signs Recent Vital Signs: Last Vital Signs Temp 98.5 F 09/16/18 17:14 Pulse 60 09/16/18 18:00 Resp 18 09/16/18 17:14 BP 126/65 09/16/18 17:14 Pulse Ox 98 09/16/18 05:45 - Labs Result Diagrams: 09/16/18 06:50 09/16/18 06:50 Labs: Laboratory Results - last 24 hr 09/15/18 09/15/18 09/15/18 07:26 11:14 16:34 WBC RBC Hgb Hct MCV MCH MCHC RDW Plt Count MPV Sodium Potassium Chloride Carbon Dioxide Anion Gap BUN Creatinine Est GFR ( Amer) Est GFR (Non-Af Amer) POC Glucose (mg/dL) 126 H 111 H 121 H Random Glucose Calcium Total Bilirubin AST ALT Alkaline Phosphatase Total Protein Albumin Globulin Albumin/Globulin Ratio 09/16/18 09/16/18 09/16/18 06:50 06:50 07:09 WBC 8.0 D RBC 2.91 L Hgb 9.6 L Hct 29.4 L MCV 101.0 MCH 33.0 MCHC 32.7 RDW 21.0 H Plt Count 248 MPV 10.4 Sodium 138 Potassium 4.1 Chloride 107 Carbon Dioxide 25 Anion Gap 10 BUN 29 H Creatinine 1.3 Est GFR ( Amer) > 60 Est GFR (Non-Af Amer) 52 POC Glucose (mg/dL) 100 Random Glucose 101 Calcium 8.4 Total Bilirubin 1.3 AST 31 ALT 34 Alkaline Phosphatase 76 Total Protein 6.6 Albumin 3.2 Globulin 3.4 Albumin/Globulin Ratio 0.9 L 09/16/18 11:19 WBC RBC Hgb Hct MCV MCH MCHC RDW Plt Count MPV Sodium Potassium Chloride Carbon Dioxide Anion Gap BUN Creatinine Est GFR ( Amer) Est GFR (Non-Af Amer) POC Glucose (mg/dL) 133 H Random Glucose Calcium Total Bilirubin AST ALT Alkaline Phosphatase Total Protein Albumin Globulin Albumin/Globulin Ratio Assessment & Plan - Assessment and Plan (Free Text) Plan: EEG: very low amplitude with some normal rhythms. NO sleep captured. no seizures. MR Sr is a very cachectic, malnourished male with encephalopathy. HE is not in status epilepticus and his prognosis is poor. I examined the patient independently and with the resident and formulated the assessment and plan. All medical record entries made by the Resident were at my direction and personally dictated by me. I have reviewed the chart and agree that the record accurately reflects my personal performance of the history, physical exam, medical decision making, and the department course for this patient. I have also personally directed, reviewed, and agree with the discharge instructions and disposition. Dr. Bird Neurology
--- NOTE | 2018-09-16 15:05 | CP.PCM.PN ---
Subjective - Date & Time of Evaluation Date of Evaluation: 09/16/18 Time of Evaluation: 14:30 - Subjective Subjective: Afebrile, comfortable. Objective - Vital Signs/Intake and Output Vital Signs (last 24 hours): Temp Pulse Resp BP Pulse Ox 97 F L 61 18 139/64 98 09/16/18 12:00 09/16/18 12:00 09/16/18 12:00 09/16/18 12:00 09/16/18 05:45 Intake and Output: 09/16/18 09/16/18 06:59 18:59 Intake Total 100 Output Total 700 Balance -600 - Medications Medications: Current Medications Doxycycline Hyclate (Doryx) 100 mg PO Q12 [facility]; Protocol Stop: 09/23/18 22:01 Last Admin: 09/16/18 12:17 Dose: 100 mg Enoxaparin Sodium (Lovenox) 30 mg SC DAILY [facility]; Protocol Last Admin: 09/16/18 12:17 Dose: 30 mg Cefepime HCl (Maxipime 1gm) 1 gm in 100 mls @ 100 mls/hr IVPB Q12 [facility]; Protocol Stop: 09/23/18 22:01 Last Admin: 09/16/18 12:17 Dose: 100 mls/hr Levothyroxine Sodium (Synthroid) 50 mcg PO DAILY [facility] Last Admin: 09/16/18 12:17 Dose: 50 mcg Pantoprazole Sodium (Protonix Ec Tab) 40 mg PO 0600 [facility] Last Admin: 09/16/18 05:48 Dose: 40 mg Sucralfate (Carafate Oral Susp) 1 gm PO 0630,1130,1630,2200 [facility] Last Admin: 09/16/18 12:16 Dose: 1 gm Tamsulosin HCl (Flomax) 0.4 mg PO DAILY [facility] Last Admin: 09/16/18 12:17 Dose: 0.4 mg Warfarin Sodium (Coumadin) 4 mg PO 1800 [facility] - Labs Labs: 09/16/18 06:50 09/16/18 06:50 PT 15.7 SECONDS (9.4-12.5) H 09/14/18 09:50 INR 1.39 09/14/18 09:50 - Constitutional Appears: No Acute Distress, Chronically Ill - Head Exam Head Exam: NORMAL INSPECTION - Respiratory Exam Respiratory Exam: Decreased Breath Sounds - Cardiovascular Exam Cardiovascular Exam: +S1, +S2 - GI/Abdominal Exam GI & Abdominal Exam: Soft. absent: Tenderness Assessment and Plan - Assessment and Plan (Free Text) Plan: Assessment leukocytosis probably stress reaction to melena / GI bleed, R/O sepsis but so far no source identified S/P right middle lobe HCAP acute cholecystitis S/P cholecystectomy melena, etiology being evaluated history of sepsis due to right sided HCAP chronic renal failure HTN hypothyroidism S/P pacemaker placement Plan continue Cefepime and Doxycycline for now - if cultures continue to be negative, especially with the normalized WBC count, will d/c antibiotics
[2018-09-17] MEDS: Pantoprazole 40 mg EC Tab PO SCH (05:30)
[2018-09-17] MEDS: Sucralfate 1 gm/10 ml Oral Susp UD PO SCH ×4 (05:30→21:48)
[2018-09-17 07:25] LABS: HEMOGLOBIN 10.1 g/dL (14.0-18.0); MEAN CORPUSCULAR HEMOGLOBIN 32.9 pg (25.0-35.0); MEAN CORPUSCULAR HGB CONC 32.3 g/dl (31.0-37.0); MEAN PLATELET VOLUME 10.3 fl (7.0-11.0); RBC 3.07 10^6/uL (3.5-6.1); RED CELL DISTRIBUTION WIDTH 20.6 % (11.5-14.5); WHITE BLOOD COUNT 7.2 10^3/uL (4.5-11.0)
[2018-09-17 07:36] LABS: ALB/GLOB RATIO 0.9 (1.1-1.8); ALBUMIN 3.2 g/dL (3.0-4.8); ALT/SGPT 37 U/L (7-56); AST/SGOT 35 U/L (17-59); BLOOD UREA NITROGEN 25 mg/dL (7-21); CALCIUM 8.5 mg/dL (8.4-10.5); GFR NON-AFRICAN AMERICAN 52; INR 1.2; PROTHROMBIN TIME 13.6 SECONDS (9.4-12.5)
--- NOTE | 2018-09-17 09:31 | PN ---
DATE: 09/17/2018 SUBJECTIVE: He is little bit stronger today than yesterday. Still weak. He is little bit more mentally with it today. He is on Aricept, Carafate, Coumadin, Doryx, Flomax, Lovenox, Maxipime, Protonix, Seroquel and Synthroid. He had some change in mentation recently. PHYSICAL EXAMINATION VITAL SIGNS: He has 98.1 temperature, 94 pulse, 133/59 blood pressure, 18 respiratory rate and 100% O2 sat on room air. HEENT: Head is atraumatic and normocephalic. GENERAL: He is alert. He told me he would eat today. HEART: Regular rate. LUNGS: Decreased breath sounds, but clear. ABDOMEN: Soft, and nontender. Positive bowel sounds status post open cholecystectomy. EXTREMITIES: No edema. LABORATORY DATA: He has a 7.2 white count, best it has been; hemoglobin is up to 10.1 and 31.3; hematocrit with 264 platelets. INR is 1.2, he is back on his Coumadin. He has 137 sodium, potassium is 4, BUN 25, creatinine 1.3, GFR is 62, sugar is 105, calcium is 8.5, total bili is 0.9, AST is 35, ALT is 37, alk phos 82 and total protein 6.6. B12 and folate are pending. He did have urinary tract infections, he is on antibiotics. He is being seen by Infectious Disease. He had leukocytosis, it is probably stress reaction with melena and GI bleed. He had status post cholecystectomy, status post pneumonia and today is one of the better days I have seen him. I am hoping he can get out of bed to chair and eat better and eventually get him to either TCU or rehab. Continue aggressive treatment and care on Ricardo Sr. Dieter Griggs DO
[2018-09-17] MEDS: Enoxaparin 30 mg Syringe SC SCH (10:21)
[2018-09-17] MEDS: Cefepime 1gm in NS 100ml 1 GM/100 ML BAG IVPB SCH (10:31)
[2018-09-17] MEDS: Levothyroxine 50 MCG TAB PO SCH (10:32)
--- NOTE | 2018-09-17 10:32 | CP.PCM.PN ---
Subjective - Date & Time of Evaluation Date of Evaluation: 09/17/18 Time of Evaluation: 09:45 - Subjective Subjective: Comfortable in bed, no fevers, not in distress, not short of breath at rest. No abdominal pain. Objective - Vital Signs/Intake and Output Vital Signs (last 24 hours): Temp Pulse Resp BP Pulse Ox 97 F L 61 18 139/64 98 09/16/18 12:00 09/16/18 12:00 09/16/18 12:00 09/16/18 12:00 09/16/18 05:45 Intake and Output: 09/16/18 09/16/18 06:59 18:59 Intake Total 100 Output Total 700 Balance -600 - Medications Medications: Current Medications Doxycycline Hyclate (Doryx) 100 mg PO Q12 [facility]; Protocol Stop: 09/23/18 22:01 Last Admin: 09/16/18 12:17 Dose: 100 mg Enoxaparin Sodium (Lovenox) 30 mg SC DAILY [facility]; Protocol Last Admin: 09/16/18 12:17 Dose: 30 mg Cefepime HCl (Maxipime 1gm) 1 gm in 100 mls @ 100 mls/hr IVPB Q12 [facility]; Protocol Stop: 09/23/18 22:01 Last Admin: 09/16/18 12:17 Dose: 100 mls/hr Levothyroxine Sodium (Synthroid) 50 mcg PO DAILY [facility] Last Admin: 09/16/18 12:17 Dose: 50 mcg Pantoprazole Sodium (Protonix Ec Tab) 40 mg PO 0600 [facility] Last Admin: 09/16/18 05:48 Dose: 40 mg Sucralfate (Carafate Oral Susp) 1 gm PO 0630,1130,1630,2200 [facility] Last Admin: 09/16/18 12:16 Dose: 1 gm Tamsulosin HCl (Flomax) 0.4 mg PO DAILY [facility] Last Admin: 09/16/18 12:17 Dose: 0.4 mg Warfarin Sodium (Coumadin) 4 mg PO 1800 [facility] - Labs Labs: 09/16/18 06:50 09/16/18 06:50 PT 15.7 SECONDS (9.4-12.5) H 09/14/18 09:50 INR 1.39 09/14/18 09:50 - Constitutional Appears: Chronically Ill - Head Exam Head Exam: NORMAL INSPECTION - ENT Exam ENT Exam: Mucous Membranes Moist - Neck Exam Neck Exam: absent: Meningismus - Respiratory Exam Respiratory Exam: Decreased Breath Sounds - Cardiovascular Exam Cardiovascular Exam: +S1, +S2 - GI/Abdominal Exam GI & Abdominal Exam: Soft. absent: Tenderness Assessment and Plan - Assessment and Plan (Free Text) Plan: Assessment leukocytosis probably stress reaction to melena / GI bleed, R/O sepsis but so far no source identified S/P right middle lobe HCAP acute cholecystitis S/P cholecystectomy melena, etiology being evaluated history of sepsis due to right sided HCAP chronic renal failure HTN hypothyroidism S/P pacemaker placement Plan on Cefepime and Doxycycline day 3 - cultures continue to be negative, and the WBC count has normalized, CXR shows improvement of RML infiltrate and PCT is only 0.06 - will d/c antibiotics and observe
[2018-09-17 13:36] LABS: FOLATE 3.6 ng/mL
--- NOTE | 2018-09-17 18:06 | CP.PCM.PN ---
Subjective - Date & Time of Evaluation Date of Evaluation: 09/17/18 Time of Evaluation: 18:06 - Subjective Subjective: Neurology Progress Note: Patient seen and assessed at bedside. No acute events overnight noted. Patient currently alert and oriented. Patient resting comfortably without complaints and 12 point ROS unremarkable at this time. Objective - Vital Signs/Intake and Output Vital Signs (last 24 hours): Temp Pulse Resp BP Pulse Ox 97.7 F 60 18 123/64 100 09/17/18 11:36 09/17/18 11:36 09/17/18 11:36 09/17/18 11:36 09/17/18 06:00 Intake and Output: 09/17/18 09/17/18 06:59 18:59 Intake Total 1000 Output Total 600 Balance 400 - Medications Medications: Current Medications Donepezil HCl (Aricept) 5 mg PO HS [facility] Last Admin: 09/16/18 22:20 Dose: 5 mg Enoxaparin Sodium (Lovenox) 30 mg SC DAILY [facility]; Protocol Last Admin: 09/17/18 10:21 Dose: 30 mg Levothyroxine Sodium (Synthroid) 50 mcg PO DAILY [facility] Last Admin: 09/17/18 10:32 Dose: 50 mcg Pantoprazole Sodium (Protonix Ec Tab) 40 mg PO 0600 [facility] Last Admin: 09/17/18 05:30 Dose: 40 mg Quetiapine Fumarate (Seroquel) 25 mg PO [facility]; Protocol Last Admin: 09/16/18 22:20 Dose: 25 mg Sucralfate (Carafate Oral Susp) 1 gm PO 0630,1130,1630,2200 [facility] Last Admin: 09/17/18 16:43 Dose: 1 gm Tamsulosin HCl (Flomax) 0.4 mg PO DAILY [facility] Last Admin: 09/17/18 10:21 Dose: 0.4 mg Warfarin Sodium (Coumadin) 4 mg PO 1800 [facility] Last Admin: 09/16/18 18:04 Dose: 4 mg - Labs Labs: 09/17/18 07:00 09/17/18 07:00 PT 13.6 SECONDS (9.4-12.5) H 09/17/18 07:00 INR 1.20 09/17/18 07:00 - Additional Findings Additional findings: - Constitutional Appears: Non-toxic, No Acute Distress - Head Exam Head Exam: ATRAUMATIC, NORMOCEPHALIC - Eye Exam Eye Exam: EOMI, Normal appearance, PERRL Pupil Exam: NORMAL ACCOMODATION - Neck Exam Neck exam: Positive for: Full Rom - Respiratory Exam Respiratory Exam: NORMAL BREATHING PATTERN - Cardiovascular Exam Cardiovascular Exam: REGULAR RHYTHM - GI/Abdominal Exam GI & Abdominal Exam: Normal Bowel Sounds, Soft. absent: Tenderness - Neurological Exam Neurological exam: Alert, CN II-XII Intact, Oriented x3, Reflexes Normal - Expanded Neurological Exam Expanded Patient oriented to: person, place, time Cranial nerves: EOM's Intact: Normal, Facial Palsey w/Forehead Movement: Normal, Facial Palsey w/o Forehead Movement: Normal, Facial Sensation: Normal, Gag Reflex: Normal, Nystagmus: Normal, Tongue Deviation: Normal Cerebellar Function: Finger to Nose: Normal, Heel to [place]: Normal Sensory exam: Lower Extremity Light Touch: Normal, Upper Extremity Light Touch: Normal Neuro motor strength exam: Left Upper Extremity: 5, Right Upper Extremity: 5, Left Lower Extremity: 5, Right Lower Extremity: 5 Coma Scale Eye Opening: SPONTANEOUS Coma Scale Motor Response: OBEYS COMMANDS Coma Scale Verbal: Oriented Coma Scale Total: 15 - Psychiatric Exam Psychiatric exam: Normal Affect, Normal Mood - Skin Skin Exam: Dry, Warm Assessment and Plan - Assessment and Plan (Free Text) Assessment: 88 year old male with a past medical history significant for atrial fibrillation on coumadin, pacemaker, aortic insufficiency, and CKD who presented with GI bleed. Neurology was consulted for intermittent AMS. Plan: -CT Head showed no acute intracranial abnormalities -Previous Routine EEG without abnormalities, epileptic activity or seizures -MRI unobtainable due to pacemaker -Current presentation likely secondary to and consistent with dementia -Continue Aricept HS and Seroquel HS -Continue daily low dose ASA -Vitamin B12 and Folate within normal limits -Further recommendations as per Dr. Bird Disposition: No further neurological imaging/interventions indicated at this time. Patient seen and case discussed with attending, Dr. Bird. Wei Post, PGY2
[2018-09-18] MEDS: Sucralfate 1 gm/10 ml Oral Susp UD PO SCH ×3 (05:54→17:07)
[2018-09-18] MEDS: Pantoprazole 40 mg EC Tab PO SCH (05:54)
[2018-09-18 06:18] VITALS: O2SAT 95
[2018-09-18 07:12] LABS: HEMOGLOBIN 9.8 g/dL (14.0-18.0); INR 1.26; MEAN CELL VOLUME 102.3 fl (80.0-105.0); MEAN CORPUSCULAR HEMOGLOBIN 32.8 pg (25.0-35.0); MEAN PLATELET VOLUME 10.1 fl (7.0-11.0); PROTHROMBIN TIME 14.2 SECONDS (9.4-12.5); RBC 2.99 10^6/uL (3.5-6.1); RED CELL DISTRIBUTION WIDTH 20.2 % (11.5-14.5)
[2018-09-18 07:33] LABS: ALBUMIN 3.1 g/dL (3.0-4.8); CALCIUM 8.6 mg/dL (8.4-10.5)
--- NOTE | 2018-09-18 09:07 | PQF ---
PROVIDER RESPONSE TEXT: Acute blood loss anemia REVIEWER QUERY TEXT: Anemia Type Anemia is documented in the Medical Record. Please specify the cause (includes suspected or probable cause) Such as: -- Due to acute blood loss -- Due to chronic blood loss -- Due to iron deficiency -- Due to postoperative blood loss -- Due to chronic disease -- Other, please specify The patient's Clinical Indicators include: Patient admitted with a GI bleed, low H/H treated with 2 UPRBC. Please specify type and acuity of anemia treated. Query created by: Lucie Aleman on 09/18/2018 8:27 AM Electronically signed by: Dieter Griggs DO 09/18/2018 9:04 AM
[2018-09-18] MEDS: Levothyroxine 50 MCG TAB PO SCH (09:46)
[2018-09-18] MEDS: Enoxaparin 30 mg Syringe SC SCH (09:47)
--- NOTE | 2018-09-18 16:09 | CP.PCM.PN ---
Subjective - Date & Time of Evaluation Date of Evaluation: 09/18/18 Time of Evaluation: 14:30 - Subjective Subjective: Comfortable in bed, no fevers. Objective - Vital Signs/Intake and Output Vital Signs (last 24 hours): Temp Pulse Resp BP Pulse Ox 98.1 F 94 H 18 133/59 L 100 09/17/18 06:00 09/17/18 06:00 09/17/18 06:00 09/17/18 06:00 09/17/18 06:00 Intake and Output: 09/17/18 09/17/18 06:59 18:59 Intake Total 1000 Output Total 600 Balance 400 - Medications Medications: Current Medications Donepezil HCl (Aricept) 5 mg PO HS [facility] Last Admin: 09/16/18 22:20 Dose: 5 mg Enoxaparin Sodium (Lovenox) 30 mg SC DAILY [facility]; Protocol Last Admin: 09/16/18 12:17 Dose: 30 mg Levothyroxine Sodium (Synthroid) 50 mcg PO DAILY [facility] Last Admin: 09/16/18 12:17 Dose: 50 mcg Pantoprazole Sodium (Protonix Ec Tab) 40 mg PO 0600 [facility] Last Admin: 09/17/18 05:30 Dose: 40 mg Quetiapine Fumarate (Seroquel) 25 mg PO HS [facility]; Protocol Last Admin: 09/16/18 22:20 Dose: 25 mg Sucralfate (Carafate Oral Susp) 1 gm PO 0630,1130,1630,2200 [facility] Last Admin: 09/17/18 05:30 Dose: 1 gm Tamsulosin HCl (Flomax) 0.4 mg PO DAILY [facility] Last Admin: 09/16/18 12:17 Dose: 0.4 mg Warfarin Sodium (Coumadin) 4 mg PO 1800 [facility] Last Admin: 09/16/18 18:04 Dose: 4 mg - Labs Labs: 09/17/18 07:00 09/17/18 07:00 PT 13.6 SECONDS (9.4-12.5) H 09/17/18 07:00 INR 1.20 09/17/18 07:00 - Constitutional Appears: Chronically Ill - Head Exam Head Exam: NORMAL INSPECTION - Respiratory Exam Respiratory Exam: Decreased Breath Sounds - Cardiovascular Exam Cardiovascular Exam: +S1, +S2 - GI/Abdominal Exam GI & Abdominal Exam: Soft. absent: Tenderness Assessment and Plan - Assessment and Plan (Free Text) Plan: Assessment leukocytosis probably stress reaction to melena / GI bleed, R/O sepsis but so far no source identified S/P right middle lobe HCAP acute cholecystitis S/P cholecystectomy melena, etiology being evaluated history of sepsis due to right sided HCAP chronic renal failure HTN hypothyroidism S/P pacemaker placement Plan cultures continue to be negative, and the WBC count has normalized, CXR shows improvement of RML infiltrate and PCT is only 0.06 - continue to monitor off antibiotics and observe
[2018-09-18 18:38] VITALS: BP 144/62; TEMP 98
[2018-09-18 18:42] VITALS: PULSE 60
== END 2018-09-18 18:55 | DRG 378 ==
LOC: ED 13:14 → ERH 13:16 → OBSVTOIN 13:16 → UNDOADMOB 13:38 → ERH 13:38 → 2RSO 23:20
PROVIDERS: ADMIT Internal Medicine; ATTEND Family Medicine
PROC: 30233N1 Transfusion of Nonautologous Red Blood Cells into Peripheral Vein, Percutaneous Approach (ICD-10-PCS; principal; 2018-09-14)
DX: K26.4 Chronic or unspecified duodenal ulcer with hemorrhage (principal); I13.0 Hypertensive heart and chronic kidney disease with heart failure and stage 1 through stage 4 chronic kidney disease, or unspecified chronic kidney disease; G93.40 Encephalopathy, unspecified; N39.0 Urinary tract infection, site not specified; D62 Acute posthemorrhagic anemia; E03.9 Hypothyroidism, unspecified; N40.0 Benign prostatic hyperplasia without lower urinary tract symptoms; I48.91 Unspecified atrial fibrillation; E11.22 Type 2 diabetes mellitus with diabetic chronic kidney disease; E11.51 Type 2 diabetes mellitus with diabetic peripheral angiopathy without gangrene; Z95.0 Presence of cardiac pacemaker; Z79.01 Long term (current) use of anticoagulants; Z87.891 Personal history of nicotine dependence; I25.10 Atherosclerotic heart disease of native coronary artery without angina pectoris; R41.82 Altered mental status, unspecified; F03.90 Unspecified dementia, unspecified severity, without behavioral disturbance, psychotic disturbance, mood disturbance, and anxiety; I35.1 Nonrheumatic aortic (valve) insufficiency; I50.9 Heart failure, unspecified; N18.9 Chronic kidney disease, unspecified; Z86.74 Personal history of sudden cardiac arrest; Z87.440 Personal history of urinary (tract) infections; Z90.49 Acquired absence of other specified parts of digestive tract; D72.828 Other elevated white blood cell count; F43.8 Other reactions to severe stress

== ENCOUNTER 2018-09-18 18:59 | Inpatient (IN) | payer OTHER, MEDICAID ==
[2018-09-18] MEDS: Sucralfate 1 gm/10 ml Oral Susp UD PO SCH (22:24)
[2018-09-19 02:50] VITALS: BMI 26.7
[2018-09-19] MEDS: Pantoprazole 40 mg EC Tab PO SCH (05:55)
[2018-09-19] MEDS: Enoxaparin 30 mg Syringe SC SCH (05:55)
[2018-09-19] MEDS: Levothyroxine 50 MCG TAB PO SCH (05:55)
[2018-09-19 06:56] LABS: ALB/GLOB RATIO 0.9 (1.1-1.8); ALBUMIN 3.2 g/dL (3.0-4.8); ALT/SGPT 39 U/L (7-56); AST/SGOT 37 U/L (17-59); BLOOD UREA NITROGEN 23 mg/dL (7-21); CALCIUM 8.6 mg/dL (8.4-10.5); GFR NON-AFRICAN AMERICAN 57
[2018-09-19 06:57] LABS: HEMOGLOBIN 10.9 g/dL (14.0-18.0); MEAN CORPUSCULAR HEMOGLOBIN 32.8 pg (25.0-35.0); MEAN CORPUSCULAR HGB CONC 31.9 g/dl (31.0-37.0); MEAN PLATELET VOLUME 10.7 fl (7.0-11.0); RBC 3.32 10^6/uL (3.5-6.1); RED CELL DISTRIBUTION WIDTH 19.9 % (11.5-14.5); WHITE BLOOD COUNT 6.3 10^3/uL (4.5-11.0)
--- NOTE | 2018-09-19 13:57 | CP.PCM.CON ---
History of Present Illness - History of Present Illness History of Present Illness: 88 year old male with PMH of HTN, hypothyroidism, S/P pacemaker placement, history of HCAP, chronic renal failure was admitted in [facility] initially because of acute cholecystitis and underwent cholecystectomy. He then developed HCAP and was treated for it, and developed GI bleeding and is now controlled. He is now transferred to [facility] for continued medical therapy and physical rehab. Infectious Diseases consult is requested to see if the patient still needs antibiotics. Currently the patient is comfortable in bed, not in distress, no fever or chills, no nausea or vomiting, no SOB at rest, no cough, no diarrhea, no dysuria. PMH: as above Past surg hx: cholecystectomy, pacemaker placement PSHx: no smoking, no alcohol abuse, no illicit drug use FMHx: non-contributory Review of Systems - Review of Systems All systems: reviewed and no additional remarkable complaints except (as per HPI) Past Patient History - Infectious Disease Hx of Infectious Diseases: None - Tetanus Immunizations Tetanus Immunization: Unknown - Past Social History Smoking Status: Former Smoker - CARDIAC Hx Hypertension: Yes - PULMONARY Hx Respiratory Disorders: Yes Hx Bronchitis: Yes - NEUROLOGICAL Hx Neurological Disorder: No - HEENT Hx HEENT Problems: Yes ([place]) - RENAL Hx Chronic Kidney Disease: No - ENDOCRINE/METABOLIC Hx Endocrine Disorders: Yes Hx Diabetes Mellitus Type 2: Yes Hx Hypothyroidism: Yes - HEMATOLOGICAL/ONCOLOGICAL Hx Blood Disorders: No - INTEGUMENTARY Hx Dermatological Problems: Yes Other/Comment: 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, dry skin to feet, dry thick toenails both feet, and b/l bunyons, multiple skin discolorations b/l arms, healing surgical sicisions to abd x4, dark skin to buttocks - MUSCULOSKELETAL/RHEUMATOLOGICAL Hx Falls: Yes - GASTROINTESTINAL Hx Gastrointestinal Disorders: Yes (GI bleed) - GENITOURINARY/GYNECOLOGICAL Hx Reproductive Disorders: Yes - PSYCHIATRIC Hx Substance Use: No - SURGICAL HISTORY Hx Surgeries: Yes Hx Appendectomy: Yes Hx Cardiac Catheterization: Yes (09/05/18) Hx Cholecystectomy: Yes Hx Orthopedic Surgery: Yes (r knee sx) - ANESTHESIA Hx Anesthesia: Yes Hx Anesthesia Reactions: Yes (bradycardia, asystole) Hx Malignant Hyperthermia: No Meds Allergies/Adverse Reactions: Allergies Allergy/AdvReac Type Severity Reaction Status Date / Time No Known Allergies Allergy Verified 08/30/18 20:29 - Medications Medications: Current Medications Donepezil HCl (Aricept) 5 mg PO HS [facility]; Protocol Last Admin: 09/18/18 22:24 Dose: 5 mg Enoxaparin Sodium (Lovenox) 30 mg SC 0600 [facility]; Protocol Last Admin: 09/19/18 05:55 Dose: 30 mg Levothyroxine Sodium (Synthroid) 50 mcg PO 0600 [facility]; Protocol Last Admin: 09/19/18 05:55 Dose: 50 mcg Pantoprazole Sodium (Protonix Ec Tab) 40 mg PO 0600 [facility]; Protocol Last Admin: 09/19/18 05:55 Dose: 40 mg Quetiapine Fumarate (Seroquel) 25 mg PO HS [facility]; Protocol Last Admin: 09/18/18 22:24 Dose: 25 mg Sucralfate (Carafate Oral Susp) 1 gm PO 0630,1130,1630,2200 [facility]; Protocol Last Admin: 09/18/18 22:24 Dose: 1 gm Tamsulosin HCl (Flomax) 0.4 mg PO DAILY [facility]; Protocol Warfarin Sodium (Coumadin) 4 mg PO 1800 [facility]; Protocol Physical Exam - Constitutional Appears: Chronically Ill - Head Exam Head Exam: NORMAL INSPECTION - Neck Exam Neck exam: Negative for: Lymphadenopathy, Meningismus - Respiratory Exam Respiratory Exam: Decreased Breath Sounds - Cardiovascular Exam Cardiovascular Exam: +S1, +S2 - GI/Abdominal Exam GI & Abdominal Exam: Soft. absent: Tenderness Results - Vital Signs Recent Vital Signs: Last Vital Signs Temp 97.7 F 09/18/18 20:03 Pulse 62 09/18/18 20:03 Resp 20 09/18/18 20:03 BP 129/66 09/18/18 20:03 Pulse Ox - Labs Result Diagrams: 09/19/18 06:15 09/19/18 06:15 Labs: Laboratory Results - last 24 hr 09/18/18 09/19/18 09/19/18 22:03 05:42 06:15 Sodium 140 Potassium 4.1 Chloride 105 Carbon Dioxide 29 Anion Gap 10 BUN 23 H Creatinine 1.2 Est GFR ( Amer) > 60 Est GFR (Non-Af Amer) 57 POC Glucose (mg/dL) 139 H 97 Random Glucose 94 Calcium 8.6 Total Bilirubin 0.7 AST 37 ALT 39 Alkaline Phosphatase 82 Total Protein 6.5 Albumin 3.2 Globulin 3.3 Albumin/Globulin Ratio 0.9 L Assessment & Plan - Assessment and Plan (Free Text) Plan: Assessment S/P leukocytosis probably stress reaction to melena / GI bleed, R/O sepsis but so far no source identified S/P right middle lobe HCAP acute cholecystitis S/P cholecystectomy melena, etiology being evaluated history of sepsis due to right sided HCAP chronic renal failure HTN hypothyroidism S/P pacemaker placement Plan cultures continue to be negative, and the WBC count has normalized, CXR shows improvement of RML infiltrate and PCT is only 0.06 - continue to monitor off antibiotics since he is at risk for nosocomial infections
[2018-09-19] MEDS: Sucralfate 1 gm/10 ml Oral Susp UD PO SCH ×3 (16:30→21:32)
[2018-09-19 17:25] VITALS: RESP 18
--- NOTE | 2018-09-19 21:15 | HP ---
DATE OF EXAM: 09/19/2018 HISTORY OF PRESENT ILLNESS: He is now in the TCU again. He just came back from the hospital side. He has been through a lot. He had an open cholecystectomy. He had rapid responses. He has been very weak. He has low hemoglobin. He was transfused. PAST MEDICAL HISTORY: He has a history of AFib, on Coumadin; pacemaker; CHF; diabetes; BPH; hypertension; status post cholecystectomy; gastric ulcers; GI bleeding, hypothyroid; musculoskeletal issues, right knee surgery; and bradycardia. He has been asystole in the past. FAMILY HISTORY: Unknown family history. SOCIAL HISTORY: Former smoker, still drinks every now and then some wine. No substance abuse. ALLERGIES: NO KNOWN DRUG ALLERGIES. REVIEW OF SYSTEMS: Presently, he is in the TCU. He is alert and comfortable. No vision or hearing changes. No shortness of breath or cough. No chest pain or palpitations. No nausea, vomiting, constipation, or diarrhea. Extremities are weak, but he is getting stronger. PHYSICAL EXAMINATION: VITAL SIGNS: He has a 97.8 temperature, 62 pulse, 198/56 blood pressure, 18 respiratory rate, and 95% O2 sat on room air. HEENT: Head is atraumatic and normocephalic. Extraocular muscles are intact. Pupils are equal and reactive to light and accommodation. Throat is dry. NECK: Supple. HEART: Regular rate. LUNGS: Decreased breath sounds bilaterally. ABDOMEN: Soft and nontender. Positive bowel sounds, status post surgery, but doing well. Moving his bowels. Stools are better. EXTREMITIES: No edema in the extremities. NEUROLOGIC: Alert and oriented x3. For the most part, this is one of the better days I have seen him, which is good. LABORATORY DATA: He has a 140 sodium, potassium 4.1, BUN 23, creatinine 1.2, GFR is 67, sugar is 94, calcium is 8.6, and total bili is 0.7. AST is 37, ALT is 39, alk phos 82, and total protein 6.5. White count 6.3, hemoglobin 10.9, hematocrit 34.2, and platelets of 234. ASSESSMENT AND PLAN: He will be in the Transitional Care Unit for few days before he will go home, this is my plan. He has been very busy, an open cholecystectomy and gastrointestinal bleed started and hopefully physical therapy at home. Dieter Griggs DO MTDD
[2018-09-20] MEDS: Sucralfate 1 gm/10 ml Oral Susp UD PO SCH ×4 (05:46→21:31)
[2018-09-20] MEDS: Levothyroxine 50 MCG TAB PO SCH (05:47)
[2018-09-20] MEDS: Pantoprazole 40 mg EC Tab PO SCH (05:47)
[2018-09-20] MEDS: Enoxaparin 30 mg Syringe SC SCH (05:47)
--- NOTE | 2018-09-20 13:13 | PN ---
DATE: 09/20/2018 SUBJECTIVE: I saw him in the Transitional Care Unit. He is alert, he is awake, he slept well, he is eating well. MEDICATIONS: He is on Aricept, Carafate, Coumadin, Flomax, Lovenox, Protonix, Seroquel and Synthroid. OBJECTIVE: GENERAL: He is definitely improving. He feels comfortable. VITAL SIGNS: He has 98 temperature, 68 pulse, 119/67 blood pressure, 18 respiratory rate, 94% sat on room air. HEENT: Head is atraumatic, normocephalic. HEART: Regular rate. LUNGS: Decreased breath sounds, but clear. ABDOMEN: Soft, nontender. Positive bowel sounds. EXTREMITIES: No edema. LABORATORY DATA: He has 6.3 white count, 10.9 hemoglobin, 34.2 hematocrit with 234 platelets. 140 sodium, potassium 4.1, BUN 22, creatinine 1.2, last sugar was 96, calcium is 8.6, total bili is 0.7, AST is 37, ALT is 39, alk phos 82. ASSESSMENT AND PLAN: He looks good. He is feeling good. He needs physical therapy before he goes home. He is being seen by Infectious Disease. He is status post leukocytosis, probably stress reaction, he had melena, and GI bleed with severe sepsis. He had acute cholecystitis with cholecystectomy,which was open. He had couple of rapid responses, he is finally in good he is in good spirits. I think he hopefully he will continue to do that. We will check his labs tomorrow. Encourage him to eat well, do the physical therapy and we will see him tomorrow. Dieter Griggs DO MTDNeo
--- NOTE | 2018-09-20 15:48 | CP.PCM.PN ---
Subjective - Date & Time of Evaluation Date of Evaluation: 09/20/18 Time of Evaluation: 13:30 - Subjective Subjective: Resting, not in distress, no fevers, no SOB at rest. No abdominal pain. Objective - Vital Signs/Intake and Output Vital Signs (last 24 hours): Temp Pulse Resp BP Pulse Ox 97.7 F 62 20 129/66 09/18/18 20:03 09/18/18 20:03 09/18/18 20:03 09/18/18 20:03 - Medications Medications: Current Medications Donepezil HCl (Aricept) 5 mg PO HS SURI; Protocol Last Admin: 09/18/18 22:24 Dose: 5 mg Enoxaparin Sodium (Lovenox) 30 mg SC 0600 SURI; Protocol Last Admin: 09/19/18 05:55 Dose: 30 mg Levothyroxine Sodium (Synthroid) 50 mcg PO 0600 SURI; Protocol Last Admin: 09/19/18 05:55 Dose: 50 mcg Pantoprazole Sodium (Protonix Ec Tab) 40 mg PO 0600 SURI; Protocol Last Admin: 09/19/18 05:55 Dose: 40 mg Quetiapine Fumarate (Seroquel) 25 mg PO HS SURI; Protocol Last Admin: 09/18/18 22:24 Dose: 25 mg Sucralfate (Carafate Oral Susp) 1 gm PO 0630,1130,1630,2200 SURI; Protocol Last Admin: 09/18/18 22:24 Dose: 1 gm Tamsulosin HCl (Flomax) 0.4 mg PO DAILY SURI; Protocol Last Admin: 09/19/18 10:15 Dose: 0.4 mg Warfarin Sodium (Coumadin) 4 mg PO 1800 SRUI; Protocol - Labs Labs: 09/19/18 06:15 09/19/18 06:15 - Constitutional Appears: Chronically Ill - Head Exam Head Exam: NORMAL INSPECTION - Respiratory Exam Respiratory Exam: Decreased Breath Sounds - Cardiovascular Exam Cardiovascular Exam: +S1, +S2 - GI/Abdominal Exam GI & Abdominal Exam: Soft. absent: Tenderness Assessment and Plan - Assessment and Plan (Free Text) Plan: Assessment S/P leukocytosis probably stress reaction to melena / GI bleed, R/O sepsis but so far no source identified S/P right middle lobe HCAP acute cholecystitis S/P cholecystectomy melena, etiology being evaluated history of sepsis due to right sided HCAP chronic renal failure HTN hypothyroidism S/P pacemaker placement Plan cultures continue to be negative, and the WBC count has normalized, CXR shows improvement of RML infiltrate and PCT is only 0.06 - continue to monitor off antibiotics since he is at risk for hospital-acquired infections
[2018-09-21] MEDS: Enoxaparin 30 mg Syringe SC SCH (05:38)
[2018-09-21] MEDS: Pantoprazole 40 mg EC Tab PO SCH (05:38)
[2018-09-21] MEDS: Levothyroxine 50 MCG TAB PO SCH (05:38)
[2018-09-21] MEDS: Sucralfate 1 gm/10 ml Oral Susp UD PO SCH ×4 (05:38→21:33)
[2018-09-21 08:11] LABS: HEMOGLOBIN 10.5 g/dL (14.0-18.0); MEAN CELL VOLUME 103.4 fl (80.0-105.0); MEAN CORPUSCULAR HEMOGLOBIN 32.5 pg (25.0-35.0); MEAN CORPUSCULAR HGB CONC 31.4 g/dl (31.0-37.0); RBC 3.23 10^6/uL (3.5-6.1); RED CELL DISTRIBUTION WIDTH 19.7 % (11.5-14.5); WHITE BLOOD COUNT 6.7 10^3/uL (4.5-11.0)
[2018-09-21 08:26] LABS: ALB/GLOB RATIO 0.9 (1.1-1.8); ALBUMIN 3.2 g/dL (3.0-4.8); ALT/SGPT 37 U/L (7-56); AST/SGOT 37 U/L (17-59); BLOOD UREA NITROGEN 31 mg/dL (7-21); CALCIUM 8.9 mg/dL (8.4-10.5); GFR NON-AFRICAN AMERICAN 57
--- NOTE | 2018-09-21 14:43 | PN ---
DATE: 09/21/2018 SUBJECTIVE: He is resting comfortably in bed in the Transitional Care Unit. He is on Aricept, Carafate, Coumadin, Flomax, Lovenox, Protonix, Seroquel and Synthroid. He is eating well. No pain. He is walking a little bit better with physical therapy. PHYSICAL EXAMINATION VITAL SIGNS: He has 97.8 temperature, 79 pulse, 139/67 blood pressure, 18 respiratory rate, 100% O2 sat on room air. HEENT: Head is atraumatic, normocephalic. HEART: Regular rate. LUNGS: Clear to auscultation. ABDOMEN: Soft. EXTREMITIES: No edema. . He is in good spirits. LABORATORY DATA: He has a 6.7 white count, 10.5 hemoglobin, 33.4 hematocrit with 216 platelets. He has 138 sodium, potassium 4.5, BUN is 31, creatinine 1.2, GFR is 57, sugar is 90, calcium is 8.9, total bili is 0.6, AST is 37, ALT is 37, alk phos 83, total protein 6.5. INR was not done, we will order an INR. He is being seen by Infectious Disease. He is doing much better. He has been in and out of the hospital numerous times and in and out of the TCU. He is status post leukocytosis. He had melena, GI bleed. He had acute cholecystitis with a open cholecystectomy. He had a right middle lobe pneumonia. He had multiple issues, now he is finally fairly stable with physical therapy, medicines, diet and then discharge him checking his labs. Dieter Griggs DO MTDD
[2018-09-21 16:28] VITALS: TEMP 97.9; O2SAT 97
--- NOTE | 2018-09-21 17:55 | CP.PCM.PN ---
Subjective - Date & Time of Evaluation Date of Evaluation: 09/21/18 Time of Evaluation: 10:40 - Subjective Subjective: Afebrile, not in distress, comfortable in bed. Objective - Vital Signs/Intake and Output Vital Signs (last 24 hours): Temp Pulse Resp BP Pulse Ox 98 F 68 18 119/67 94 L 09/19/18 16:00 09/19/18 16:00 09/19/18 16:00 09/19/18 16:00 09/19/18 16:00 - Medications Medications: Current Medications Donepezil HCl (Aricept) 5 mg PO HS SURI; Protocol Last Admin: 09/19/18 21:32 Dose: 5 mg Enoxaparin Sodium (Lovenox) 30 mg SC 0600 SURI; Protocol Last Admin: 09/20/18 05:47 Dose: 30 mg Levothyroxine Sodium (Synthroid) 50 mcg PO 0600 SURI; Protocol Last Admin: 09/20/18 05:47 Dose: 50 mcg Pantoprazole Sodium (Protonix Ec Tab) 40 mg PO 0600 SURI; Protocol Last Admin: 09/20/18 05:47 Dose: 40 mg Quetiapine Fumarate (Seroquel) 25 mg PO HS SURI; Protocol Last Admin: 09/19/18 21:32 Dose: 25 mg Sucralfate (Carafate Oral Susp) 1 gm PO 0630,1130,1630,2200 SURI; Protocol Last Admin: 09/20/18 12:21 Dose: 1 gm Tamsulosin HCl (Flomax) 0.4 mg PO DAILY SURI; Protocol Last Admin: 09/20/18 10:36 Dose: 0.4 mg Warfarin Sodium (Coumadin) 4 mg PO 1800 SURI; Protocol Last Admin: 09/19/18 18:03 Dose: 4 mg - Labs Labs: 09/19/18 06:15 09/19/18 06:15 - Constitutional Appears: Chronically Ill - Head Exam Head Exam: NORMAL INSPECTION - Respiratory Exam Respiratory Exam: Decreased Breath Sounds - Cardiovascular Exam Cardiovascular Exam: +S1, +S2 - GI/Abdominal Exam GI & Abdominal Exam: Soft. absent: Tenderness Assessment and Plan - Assessment and Plan (Free Text) Plan: Assessment S/P leukocytosis probably stress reaction to melena / GI bleed, R/O sepsis but so far no source identified S/P right middle lobe HCAP acute cholecystitis S/P cholecystectomy melena, etiology being evaluated history of sepsis due to right sided HCAP chronic renal failure HTN hypothyroidism S/P pacemaker placement Plan cultures continue to be negative, and the WBC count has normalized, CXR shows improvement of RML infiltrate and PCT is only 0.06 - continue to monitor off antibiotics since he is at risk for healthcare-associated infections
[2018-09-22] MEDS: Sucralfate 1 gm/10 ml Oral Susp UD PO SCH ×4 (05:54→21:36)
[2018-09-22] MEDS: Enoxaparin 30 mg Syringe SC SCH (05:54)
[2018-09-22] MEDS: Pantoprazole 40 mg EC Tab PO SCH (05:54)
[2018-09-22] MEDS: Levothyroxine 50 MCG TAB PO SCH (05:55)
[2018-09-22 08:01] LABS: HEMOGLOBIN 10.9 g/dL (14.0-18.0); MEAN CELL VOLUME 103.9 fl (80.0-105.0); MEAN CORPUSCULAR HEMOGLOBIN 32.5 pg (25.0-35.0); MEAN CORPUSCULAR HGB CONC 31.3 g/dl (31.0-37.0); MEAN PLATELET VOLUME 11.1 fl (7.0-11.0); RBC 3.35 10^6/uL (3.5-6.1); RED CELL DISTRIBUTION WIDTH 19.3 % (11.5-14.5); WHITE BLOOD COUNT 6.7 10^3/uL (4.5-11.0)
[2018-09-22 08:03] LABS: INR 1.27; PROTHROMBIN TIME 14.3 SECONDS (9.4-12.5)
[2018-09-22 08:27] LABS: ALBUMIN 3.3 g/dL (3.0-4.8); ALT/SGPT 30 U/L (7-56); AST/SGOT 42 U/L (17-59); BLOOD UREA NITROGEN 34 mg/dL (7-21); CALCIUM 8.8 mg/dL (8.4-10.5); GFR NON-AFRICAN AMERICAN 57
--- NOTE | 2018-09-22 15:21 | PN ---
DATE: 09/22/2018 SUBJECTIVE: I saw Ricardo Sr in the transitional care unit. He is resting in bed. He ate his breakfast. He tells me he is improving. He has no chest pain, no shortness of breath. No abdominal pain. He is eating. He is going to the bathroom well. He is trying physical therapy, he is walking better. He is in good spirits. No pain. MEDICATIONS: He is on Aricept, Carafate, Coumadin, Flomax, Lovenox, Protonix, Seroquel, Synthroid. PHYSICAL EXAMINATION: VITAL SIGNS: He has 97.9 temperature, 66 pulse, 121/60 blood pressure, 18 respiratory rate, 97% O2 sat on room air. HEAD: Atraumatic, normocephalic. HEART: Regular rate. LUNGS: Clear to auscultation. ABDOMEN: Soft, nontender. Positive bowel sounds. Even though he had an open cholecystectomy, he has had no pain, no problems. EXTREMITIES: No edema. He is in good spirits. LABORATORY DATA: He has 6.7 white count, 10.9 hemoglobin, 34.8 hematocrit with 191 platelets. He has sodium 140, potassium 4.3, BUN is 34, creatinine 1.2, GFR is 57, sugar is 91, calcium is 8.8, total bili is 0.6. AST is 42, ALT is 30, alk phos 88, total protein 6.8. He is doing quite well there. ASSESSMENT AND PLAN: He is being seen by Infectious Disease. He is doing well. He is status post right middle lobe pneumonia, status post cholecystectomy and open cholecystectomy. Melena, he is doing great. more days in the transitional care unit, yet to go home. No laboratory anymore. We will watch him closely. Dieter Griggs DO MTDNeo
--- NOTE | 2018-09-22 21:36 | PN ---
DATE: 09/22/2018 SUBJECTIVE: The patient is in bed, in no acute distress. PHYSICAL EXAMINATION: VITAL SIGNS: Temperature is 98, blood pressure is 120/60, respiratory of 18, heart rate of 66. HEENT: Unremarkable. NECK: Supple. LUNGS: Have decreased breath sounds. HEART: Normal S1, S2. ABDOMEN: Soft. LABORATORY DATA: Reveals a white count of 6.7, hemoglobin of 10, platelets of 191. Chemistries reveals a BUN of 34, creatinine of 1.2. ASSESSMENT AND PLAN: This is an 88-year-old with leukocytosis,stress versus sepsis with no obvious sources at this point. Currently now off of antibiotics in a patient with hypertension, hypothyroidism, pacemaker and at this point the patient's white count of 6.7, afebrile. Review of orders reveals no antibiotics. The patient is at risk for developing nosocomial infections. Ebenezer Ledesma MD
[2018-09-23] MEDS: Sucralfate 1 gm/10 ml Oral Susp UD PO SCH ×3 (06:02→17:27)
[2018-09-23] MEDS: Pantoprazole 40 mg EC Tab PO SCH (06:02)
[2018-09-23] MEDS: Levothyroxine 50 MCG TAB PO SCH (06:02)
[2018-09-23] MEDS: Enoxaparin 30 mg Syringe SC SCH (06:02)
--- NOTE | 2018-09-23 12:51 | PN ---
DATE: 09/23/2018 SUBJECTIVE: He is in the Transitional Care Unit. He is resting in bed. He slept well. He is eating well, trying physical therapy. No complaints of chest pain, shortness of breath. No abdominal pain. He is really feeling better. He is on Aricept, Carafate, Coumadin, Flomax, Lovenox, Protonix, Seroquel and Synthroid. PHYSICAL EXAMINATION: VITAL SIGNS: He has a 97.9 temperature, 66 pulse, 121/60 blood pressure, 18 respiratory rate, 97% O2 sat on room air. HEAD: Atraumatic, normocephalic. HEART: Regular rate. LUNGS: Clear to auscultation. ABDOMEN: Soft, nontender. Positive bowel sounds even after open cholecystectomy. EXTREMITIES: No edema. LABORATORY DATA: He has a 6.7 white count, 10.9 hemoglobin, 191 platelets. He has a 140 sodium, potassium 4.3, BUN 34, creatinine 1.2. He is on the third. I am going to order labs for tomorrow. He is therefore three more days. I am going to check his INR, make sure his white count is good, his hemoglobin is good and his kidneys are good. I encouraged him to participate in physical therapy and hopefully to get discharge in the next 3 days. Dieter Griggs DO
--- NOTE | 2018-09-23 13:44 | CP.PCM.PN ---
Subjective - Date & Time of Evaluation Date of Evaluation: 09/23/18 Time of Evaluation: 10:10 - Subjective Subjective: Comfortable in bed, afebrile, not in distress. Objective - Vital Signs/Intake and Output Vital Signs (last 24 hours): Temp Pulse Resp BP Pulse Ox 97.9 F 66 18 121/60 97 09/21/18 16:00 09/21/18 16:00 09/21/18 16:00 09/21/18 16:00 09/21/18 16:00 - Medications Medications: Current Medications Donepezil HCl (Aricept) 5 mg PO HS SURI; Protocol Last Admin: 09/22/18 21:36 Dose: 5 mg Enoxaparin Sodium (Lovenox) 30 mg SC 0600 SURI; Protocol Last Admin: 09/23/18 06:02 Dose: 30 mg Levothyroxine Sodium (Synthroid) 50 mcg PO 0600 SURI; Protocol Last Admin: 09/23/18 06:02 Dose: 50 mcg Pantoprazole Sodium (Protonix Ec Tab) 40 mg PO 0600 SURI; Protocol Last Admin: 09/23/18 06:02 Dose: 40 mg Quetiapine Fumarate (Seroquel) 25 mg PO HS SURI; Protocol Last Admin: 09/22/18 21:36 Dose: 25 mg Sucralfate (Carafate Oral Susp) 1 gm PO 0630,1130,1630,2200 SURI; Protocol Last Admin: 09/23/18 12:21 Dose: 1 gm Tamsulosin HCl (Flomax) 0.4 mg PO DAILY SURI; Protocol Last Admin: 09/23/18 09:51 Dose: 0.4 mg Warfarin Sodium (Coumadin) 4 mg PO 1800 SURI; Protocol Last Admin: 09/22/18 17:45 Dose: 4 mg - Labs Labs: 09/22/18 07:00 09/22/18 07:00 PT 14.3 SECONDS (9.4-12.5) H 09/22/18 07:00 INR 1.27 09/22/18 07:00 - Constitutional Appears: Chronically Ill - Head Exam Head Exam: NORMAL INSPECTION - Respiratory Exam Respiratory Exam: Decreased Breath Sounds - Cardiovascular Exam Cardiovascular Exam: +S1, +S2 - GI/Abdominal Exam GI & Abdominal Exam: Soft. absent: Tenderness Assessment and Plan - Assessment and Plan (Free Text) Plan: Assessment S/P leukocytosis probably stress reaction to melena / GI bleed, no evidence of infection or sepsis identified S/P right middle lobe HCAP acute cholecystitis S/P cholecystectomy melena, etiology being evaluated history of sepsis due to right sided HCAP chronic renal failure HTN hypothyroidism S/P pacemaker placement Plan cultures continue to be negative, and the WBC count has normalized, CXR shows improvement of RML infiltrate and PCT is only 0.06 - continue to monitor off antibiotics since he is at risk for nosocomial infections
[2018-09-23 16:23] VITALS: BP 126/62; PULSE 68
== END 2018-09-23 18:44 | disposition home or self-care (01) | DRG 194 ==
LOC: TRCU 18:59
PROVIDERS: ADMIT Family Medicine; ATTEND Family Medicine
PROC: F07Z9FZ Gait Training/Functional Ambulation Treatment using Assistive, Adaptive, Supportive or Protective Equipment (ICD-10-PCS; principal; 2018-09-20)
PROC: F07Z8ZZ Transfer Training Treatment (ICD-10-PCS; 2018-09-20)
PROC: F07Z5ZZ Bed Mobility Treatment (ICD-10-PCS; 2018-09-20)
PROC: F07L6YZ Therapeutic Exercise Treatment of Musculoskeletal System - Lower Back / Lower Extremity using Other Equipment (ICD-10-PCS; 2018-09-20)
PROC: F08Z1FZ Dressing Techniques Treatment using Assistive, Adaptive, Supportive or Protective Equipment (ICD-10-PCS; 2018-09-21)
PROC: F08Z2FZ Grooming/Personal Hygiene Treatment using Assistive, Adaptive, Supportive or Protective Equipment (ICD-10-PCS; 2018-09-21)
DX: J18.9 Pneumonia, unspecified organism (principal); K92.1 Melena; I13.0 Hypertensive heart and chronic kidney disease with heart failure and stage 1 through stage 4 chronic kidney disease, or unspecified chronic kidney disease; I50.9 Heart failure, unspecified; E11.22 Type 2 diabetes mellitus with diabetic chronic kidney disease; N18.9 Chronic kidney disease, unspecified; D64.9 Anemia, unspecified; E03.9 Hypothyroidism, unspecified; I48.91 Unspecified atrial fibrillation; N40.0 Benign prostatic hyperplasia without lower urinary tract symptoms; Z79.4 Long term (current) use of insulin; Z79.01 Long term (current) use of anticoagulants; Z87.891 Personal history of nicotine dependence; Z95.0 Presence of cardiac pacemaker; Z90.49 Acquired absence of other specified parts of digestive tract

== ENCOUNTER 2018-10-17 09:51 | Observation (INO) | payer MEDICARE, MEDICAID ==
[2018-10-17 09:51] VITALS: PULSE 62
[2018-10-17 10:05] VITALS: BMI 26.0
[2018-10-17 11:20] LABS: BASO # 0.01 {null, K/mm3} (0.0-2.0); BASO % 0.2 % (0.0-3.0); EOS % 0.8 % (1.5-5.0); HEMOGLOBIN 12.2 g/dL (14.0-18.0); LYMPH % 20.4 % (22.0-35.0); MEAN CELL VOLUME 104.3 fl (80.0-105.0); MEAN CORPUSCULAR HEMOGLOBIN 32.6 pg (25.0-35.0); MEAN CORPUSCULAR HGB CONC 31.3 g/dl (31.0-37.0); MEAN PLATELET VOLUME 11.2 fl (7.0-11.0); MONO # 0.6 (0.1-0.6); MONO % 11.9 % (1.0-6.0); RBC 3.74 {null, 10^6/uL} (3.5-6.1); RED CELL DISTRIBUTION WIDTH 17.3 % (11.5-14.5); WHITE BLOOD COUNT 4.7 {null, 10^3/uL} (4.5-11.0)
--- NOTE | 2018-10-17 11:28 | CT ---
Date of service: 10/17/2018 PROCEDURE: CT HEAD WITHOUT CONTRAST. HISTORY: headache COMPARISON: Noncontrast head CT 09/15/2017. TECHNIQUE: Axial computed tomography images were obtained through the head/brain without intravenous contrast. Radiation dose: Total exam DLP = 1013.37 mGy-cm. This CT exam was performed using one or more of the following dose reduction techniques: Automated exposure control, adjustment of the mA and/or kV according to patient size, and/or use of iterative reconstruction technique. FINDINGS: HEMORRHAGE: No intracranial hemorrhage. BRAIN: Good corticomedullary differentiation is seen. Reiterated diffuse cerebral atrophy and chronic microangiopathy. No suspicious extra-axial fluid collection is identified and the midline brain anatomy appears grossly nonfocal as imaged. No mass effect identified. VENTRICLES: Unremarkable. No hydrocephalus. CALVARIUM: Unremarkable. PARANASAL SINUSES: Unremarkable as visualized. No significant inflammatory changes. MASTOID AIR CELLS: Unremarkable as visualized. No inflammatory changes. OTHER FINDINGS: None. IMPRESSION: No definite acute intracranial findings by standard CT criteria. Age-related neuro degenerative changes are reiterated and are unchanged in the interval.
[2018-10-17 11:32] LABS: INR 1.23; PARTIAL THROMBOPLASTIN TIME 32.5 Seconds (26.9-38.3); PROTHROMBIN TIME 13.9 SECONDS (9.4-12.5)
--- NOTE | 2018-10-17 11:37 | CT ---
Date of service: 10/17/2018 PROCEDURE: CT Cervical Spine without contrast HISTORY: fall COMPARISON: None available. TECHNIQUE: Axial computed tomography images were obtained of the cervical spine without the use of intravenous contrast. Coronal and sagittal reformatted images were created and reviewed. Radiation dose: Total exam DLP = 661.81 mGy-cm. This CT exam was performed using one or more of the following dose reduction techniques: Automated exposure control, adjustment of the mA and/or kV according to patient size, and/or use of iterative reconstruction technique. FINDINGS: VERTEBRAE: Grade 1 spondylolisthesis is degenerative at C4-5 with C4 slightly posterior to C5. No fractures appreciated throughout the cervical spine with the C1-2 articulation degenerated but intact otherwise. Craniocervical junction is unremarkable. No destructive bony lesions are identified throughout. Multilevel facet joint arthropathy is appreciated as well as moderate spondylosis. Severe disc height loss identified at C4-5 and is moderate at C3-4 and C 6 7. Prevertebral paraspinal soft tissues appear diffusely unremarkable. Note is made of bilateral carotid bulbar and proximal internal carotid artery calcified atherosclerosis. DISCS/SPINAL CANAL/NEURAL FORAMINA: At C2-3, mild left degenerative neural foraminal stenosis appreciated with remainder of this level widely patent. At C3-4, severe bilateral degenerative neural foraminal stenoses are caused by bilateral facet and uncovertebral arthrosis with the central canal widely patent. Posterior osteophytes flatten the ventral thecal sac somewhat. At C4-5, moderate to severe left and mild right degenerative neural foraminal stenoses are identified with a disc osteophyte complex and limited spondylolisthesis causing mild central canal stenosis greater at the right than left sides. At C5-6, moderate left and borderline right degenerative neural foraminal stenoses are identified with widely patent central canal. At C6-7, mild bilateral degenerative neural foraminal stenoses are encountered with widely patent central canal. No pertinent findings at C7-T1. PARASPINAL SOFT TISSUES: Unremarkable. OTHER FINDINGS: Pacemaker lead at thoracic inlet. IMPRESSION: 1. No fracture appreciated throughout the cervical spine including the odontoid process. 2. Degenerative cyst grade 1 spondylolisthesis C4-5. 3. Multilevel variable degenerative neural foraminal stenoses sparing only C7-T1 level and seen most advanced at the C3-4 and C4-5 levels as discussed above. Mild central canal stenosis is degenerative at C4-5 with remainder of the central canal widely patent. No gross disc herniation appreciable. MRI can be utilized for added characterization of the intervertebral discs.
[2018-10-17 11:40] LABS: ALBUMIN 3.7 g/dL (3.0-4.8); CALCIUM 8.6 mg/dL (8.4-10.5)
[2018-10-17] MEDS ORDERED: Albuterol-Ipratrop 3 mg / 0.5 (3 ml) UD IH STA (12:05)
--- NOTE | 2018-10-17 12:09 | RAD ---
Date of service: 10/17/2018 PROCEDURE: Radiographs of the Chest and Right Ribs. HISTORY: chest pain s/p fall COMPARISON: None available. TECHNIQUE: Frontal radiograph of the chest and multiple oblique radiographs of the right ribs were obtained. FINDINGS: RIGHT RIBS: Nondisplaced fractures are seen of the right 8th and 9th ribs LUNGS: Clear. PLEURA: No pneumothorax or pleural fluid. CARDIOVASCULAR: Normal cardiac size. No pulmonary vascular congestion. No aortic atherosclerotic calcification present OTHER FINDINGS: None. IMPRESSION: Nondisplaced fractures are seen of the right 8th and 9th ribs
[2018-10-17] MEDS ORDERED: Lidocaine 5% Patch TD ONE (12:10)
--- NOTE | 2018-10-17 12:13 | ED PDOC ---
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 Patient states that he began to feel dizzy which led to his fall on his right side. Patient notes he did not take his medication this morning. He reports associated cough. He denies fevers, chills, headache chest pain, shortness of breath, dyspnea on exertion, nausea, vomiting, diarrhea, neck pain, or any other complaint. PMD: Dr. Griggs Time/Duration: Prior to Arrival Symptom Onset: Gradual Symptom Course: Unchanged Activities at Onset: Light Context: Home Past Medical History - Provider Review Nursing Documentation Reviewed: Yes - Infectious Disease Hx of Infectious Diseases: None - Tetanus Immunization Tetanus Immunization: Unknown - Cardiac Hx Hypertension: Yes Hx Pacemaker: Yes - Pulmonary Hx Respiratory Disorders: Yes Hx Bronchitis: Yes - Neurological Hx Neurological Disorder: Yes Hx Dementia: Yes - HEENT Hx HEENT Disorder: Yes ([place]) - Renal Hx Renal Disorder: No - Endocrine/Metabolic Hx Endocrine Disorders: Yes Hx Diabetes Mellitus Type 2: Yes Hx Hypothyroidism: Yes - Hematological/Oncological Hx Blood Disorders: No - Integumentary Hx Dermatological Disorder: Yes Other/Comment: 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, dry skin to feet, dry thick toenails both feet, and b/l bunyons, multiple skin discolorations b/l arms, healing surgical sicisions to abd x4, dark skin to buttocks - Musculoskeletal/Rheumatological Hx Falls: Yes - Gastrointestinal Hx Gastrointestinal Disorders: Yes (GI bleed) - Genitourinary/Gynecological Hx Bladder Cancer: Yes Hx Reproductive Disorders: Yes - Psychiatric Hx Psychophysiologic Disorder: No Hx Emotional Abuse: No Hx Physical Abuse: No Hx Substance Use: No - Past Surgical History Past Surgical History: No Previous - Surgical History Hx Appendectomy: Yes Hx Cardiac Catheterization: Yes (09/05/18) Hx Cholecystectomy: Yes Hx Orthopedic Surgery: Yes (r knee sx) - Anesthesia Hx Anesthesia: Yes Hx Anesthesia Reactions: Yes (bradycardia, asystole) Hx Malignant Hyperthermia: No - Suicidal Assessment Feels Threatened In Home Enviroment: No Family/Social History - Physician Review Nursing Documentation Reviewed: Yes Family/Social History: No Known Family HX Smoking Status: Former Smoker Hx Alcohol Use: Yes (social) Hx Substance Use: No Hx Substance Use Treatment: No Allergies/Home Meds Allergies/Adverse Reactions: Allergies No Known Allergies Allergy (Verified 08/30/18 20:29) Home Medications: Home Meds Medication Instructions Recorded Confirmed Tamsulosin [Flomax] 0.4 mg PO DAILY 04/19/18 10/17/18 Review of Systems - Review of Systems Constitutional: absent: Fevers Respiratory: Cough, Wheezing. absent: SOB Cardiovascular: absent: Chest Pain Gastrointestinal: absent: Nausea, Vomiting Musculoskeletal: Other (right sided rib pain). absent: Neck Pain Neurological: Dizziness. absent: Headache Physical Exam Vital Signs Reviewed: Yes Vital Signs Temp Pulse Resp BP Pulse Ox 10/17/18 11:44 97.7 F 64 18 114/48 L 99 10/17/18 10:05 97.9 F 64 22 103/46 L 92 L Temperature: Afebrile Blood Pressure: Hypotensive Pulse: Regular Respiratory Rate: Normal Appearance: Positive for: Well-Appearing, Non-Toxic, Comfortable Pain Distress: None Mental Status: Positive for: Alert and Oriented X 3 - Systems Exam Head: Present: Atraumatic, Normocephalic Pupils: Present: PERRL Extroacular Muscles: Present: EOMI Conjunctiva: Present: Normal Mouth: Present: Dry. No: Moist Mucous Membranes Neck: Present: Normal Range of Motion Respiratory/Chest: Present: Wheezes (minimal expiratory wheezing during exam ), Rales (diffuse rales ), Rhonchi (diffuse rhonchi). No: Respiratory Distress, Accessory Muscle Use Cardiovascular: Present: Regular Rate and Rhythm, Normal S1, S2. No: Murmurs Abdomen: No: Tenderness, Distention, Peritoneal Signs Back: Present: Normal Inspection Upper Extremity: Present: Normal Inspection. No: Cyanosis, Edema Lower Extremity: Present: Normal Inspection. No: Edema Neurological: Present: GCS=15, CN II-XII Intact, Speech Normal (speaking in full sentences) Skin: Present: Warm, Dry, Normal Color. No: Rashes Psychiatric: Present: Alert, Oriented x 3, Normal Insight, Normal Concentration Medical Decision Making ED Course and Treatment: 10/17/18 12:09 Impression: 88 year old male who presents to the emergency department for right sided rib pain. Differential Diagnosis included but are not limited to: fracture bronchitis pneumonia Plan: -- Cervical spine w/o contrast CT -- Head CT -- EKG -- LAbs -- Duoneb -- SOLU-medrol -- Right ribs X-ray -- Urinalysis -- Reassess and disposition Prior Visits: Notes and results from previous visits were reviewed. Progress Notes: - Lab Interpretations Lab Results: PT 13.9 SECONDS (9.4-12.5) H 10/17/18 10:58 INR 1.23 10/17/18 10:58 APTT 32.5 Seconds (26.9-38.3) 10/17/18 10:58 Total Bilirubin 0.4 mg/dL (0.2-1.3) 10/17/18 10:58 AST 60 U/L (17-59) H D 10/17/18 10:58 ALT 27 U/L (7-56) 10/17/18 10:58 Alkaline Phosphatase 86 U/L (38-126) 10/17/18 10:58 Total Protein 7.3 g/dL (5.8-8.3) 10/17/18 10:58 Albumin 3.7 g/dL (3.0-4.8) 10/17/18 10:58 Globulin 3.6 gm/dL 10/17/18 10:58 Albumin/Globulin Ratio 1.0 (1.1-1.8) L 10/17/18 10:58 I have reviewed the lab results: Yes - RAD Interpretation Narrative RAD Interpretations (Text): 10/17/18 12:26 Cervical spine w/o contrast CT reviewed by radiologist, shows: IMPRESSION: 1. No fracture appreciated throughout the cervical spine including the odontoid process. 2. Degenerative cyst grade 1 spondylolisthesis C4-5. 3. Multilevel variable degenerative neural foraminal stenoses sparing only C7-T1 level and seen most advanced at the C3-4 and C4-5 levels as discussed above. Mild central canal stenosis is degenerative at C4-5 with remainder of the central canal widely patent. No gross disc herniation appreciable. MRI can be utilized for added characterization of the intervertebral discs. Head CT reviewed by radiologist, shows: IMPRESSION: No definite acute intracranial findings by standard CT criteria. Age-related neuro degenerative changes are reiterated and are unchanged in the interval. Right ribs X-ray reviewed by radiologist, shows: IMPRESSION: Nondisplaced fractures are seen of the right 8th and 9th ribs Radiology Orders: 10/17/18 10:12 CERVICAL SPINE W/O CONTRAST [CT] Stat HEAD W/O CONTRAST [CT] Stat 10/17/18 10:25 RIBS RIGHT & PA CHEST [RAD] Stat Business Development Intern: Radiologist - EKG Interpretation EKG Interpretation (Text): 10/17/18 14:39 EKG performed at 10:05 reviewed by me, shows: paced at 61bpm. Interpreted by ED Physician: Yes Type: 12 lead EKG - Medication Orders Current Medication Orders: Discontinued Medications Albuterol/Ipratropium (Duoneb 3 Mg/0.5 Mg (3 Ml) Ud) 3 ml IH STAT STA Stop: 10/17/18 12:06 Methylprednisolone (Solu-Medrol) 125 mg IVP STAT STA Stop: 10/17/18 12:06 - Scribe Statement The provider has reviewed the documentation as recorded by the Ivory Rayo Provider Scribe Attestation: All medical record entries made by the Scribe were at my direction and personally dictated by me. I have reviewed the chart and agree that the record accurately reflects my personal performance of the history, physical exam, medical decision making, and the department course for this patient. I have also personally directed, reviewed, and agree with the discharge instructions and disposition. Disposition/Present on Arrival - Present on Arrival History of DVT/PE: No History of Uncontrolled Diabetes: No Urinary Catheter: No History of Decub. Ulcer: No History Surgical Site Infection Following: None - Disposition
--- NOTE | 2018-10-17 13:15 | CARD ---
APPROVED REPORT Date of service: 10/17/2018 EKG Measurement Heart [id number] <Conclusion> Electronic ventricular pacemaker
[2018-10-17 13:36] LABS: PH,URINE 5.5 (4.7-8.0); URINE BILIRUBIN NEGATIVE (NEGATIVE); URINE BLOOD MODERATE (NEGATIVE); URINE GLUCOSE (UA) NEGATIVE (NEGATIVE); URINE LEUKOCYTE ESTERASE SMALL Leu/uL (NEGATIVE); URINE PROTEIN 100 mg/dL (<30 mg/dL); URINE UROBILINOGEN 0.2 E.U./dL (<1 E.U./dL)
[2018-10-17 13:38] LABS: URINE APPEARANCE SL CLOUDY (CLEAR); URINE COLOR YELLOW (YELLOW)
[2018-10-17 13:51] LABS: URINE BACTERIA LARGE /hpf; URINE EPITHELIAL CELLS 0 - 2 /hpf (0-5); URINE RBC 25 - 30 /hpf (0-2)
[2018-10-17 13:52] LABS: URINE AMORPHOUS SEDIMENT MODERATE /hpf; URINE COARSE GRANULAR CAST SMALL /hpf; URINE FINE GRANULAR CAST 0 - 2 /hpf
[2018-10-17] MEDS ORDERED: Promethazine DM 6.25 mg-15 mg/5 ml Syrup PO PRN (16:57)
[2018-10-17] MEDS ORDERED: Influenza Vaccine 60 mcg/0.5 mL SYR (4YR UP) IM ONE (17:18)
[2018-10-17] MEDS ORDERED: Pneumococcal 23-Valent Vaccine IM ONE (17:18)
[2018-10-17] MEDS: cefTRIAXone 1 gm 1 GM/100 ML BAG IVPB SCH (17:43)
[2018-10-17] MEDS ORDERED: Levalbuterol 0.63 MG/3 ML Inhal Soln UD IH PRN (18:40)
[2018-10-17] MEDS ORDERED: Sodium Chloride 0.45% 1,000 ML IV SCH (18:45)
[2018-10-17] MEDS: Sucralfate 1 gm/10 ml Oral Susp UD PO SCH (21:22)
--- NOTE | 2018-10-17 22:03 | CP.PCM.PCO ---
Addendum Addendum: 10/17/18 21:[address] Serrano Responded to page at 20:11 regarding Patient's status. Apparently the Patient received a shock from pacemaker. Stat EKG was ordered. Patient was seen and evaluated at bedside; resting comfortably. Vitals are stable. Patient is hemodynamically stable and has no complaints. EKG showed ventricular rate @ 63bpm, QTc 474. Continue to monitor in tele. Discussed with Dr. Zach Summers PGY1
--- NOTE | 2018-10-17 22:50 | HP ---
DATE OF EXAM: 10/17/2018 HISTORY OF PRESENT ILLNESS: I saw Mr. Ricardo Sr in the emergency room, he had fallen at home and he hurt his right-sided ribs and he went to the emergency room, he fell on his right side. He was not feeling well overall. He has a past medical history being an 88-year-old white man who speaks Bengali, some broken Brazilian, has atrial fibrillation on Coumadin, he has a pacemaker, CHF, diabetes, BPH, hypertension, he had a fall had right-sided rib pain, did not lose consciousness, history of bronchitis, dementia, he is hard of hearing, he has type 2 diabetes, hypothyroidism, he has hammertoes in f both feet, dry skin, thick toenails both feet, bunions, healing surgical incisions on the abdomen, he had acute cholecystitis and surgery recently with an open cholecystectomy, he had falls, GI bleeds, bladder cancer history, appendectomy, cholecystectomy, right knee surgery, cardiac catheterizations, bradycardia has been asystole. FAMILY HISTORY: Unknown. SOCIAL HISTORY: Former smoker, still drinks alcohol socially. No drugs. ALLERGIES: NO KNOWN DRUG ALLERGIES. PAST MEDICAL HISTORY: He has BPH. MEDICATIONS: He is on multiple medications. He is on Aricept, Carafate, Coumadin, Lidoderm, Protonix, Seroquel, Synthroid. REVIEW OF SYSTEMS: No acute vision or hearing changes. No sore throat. No neck pain. He has got some cough and wheezing. No shortness of breath. No chest pain or palpitations. No abdominal pain, nausea, vomiting, constipation, or diarrhea. He has right-sided rib pain from where he fell. No neck pain. No leg pain. A little bit dizzy but no headache. PHYSICAL EXAMINATION: VITAL SIGNS: Temperature 97.7, pulse 64, respiratory rate 18, blood pressure 114/48, and O2 sat 99%. GENERAL: He was hypotensive when he came in. He is well appearing, nontoxic, comfortable. Alert and oriented x3. HEENT: Head is atraumatic and normocephalic. Extraocular muscles intact. Pupils reactive to light and accommodation. Throat is moist. NECK: Supple. Good range of motion. No palpable lymphadenopathy. Thyroid midline. LUNGS: Decreased breath sounds, wheezes, some rhonchi. No respiratory distress. HEART: Regular rate. Normal S1 and S2. ABDOMEN: Soft and nontender. Positive bowel sounds. No guarding, no rebound and no CVA tenderness. EXTREMITIES: No edema. NEUROLOGIC: GCS is 15. Cranial nerves II through XII grossly intact. Speech is normal. SKIN: Warm and dry. DIAGNOSTIC DATA: He had multiple issues. He had multiple tests. Cervical spine shows a lot of arthritis. CT of the head with nothing acute. He has nondisplaced fractures on the right eighth and ninth ribs. He has got a bronchitis, fall with right eighth and ninth ribs fracture. He has a urine which shows a moderate amorphous sediment large bacteria. She has little bit of UTI also. Sodium 139, potassium 4.1, BUN 27, creatinine 1.8 little bit renal insufficiency, GFR is 36, sugar is 116, and calcium is 8.6. Total bili is 0.4, AST is 60, ALT is 27, alk phos 86, and total protein 7.3. INR is 1.23. White count 4.7, hemoglobin 12.2, hematocrit 39, and platelets of 154. IMPRESSION AND PLAN: He has got a fall, fractured ribs eighth and ninth, he has got to urinary tract infection, and renal insufficiency. We are going to keep him in the hospital, give him IV fluids, IV Rocephin, consults with Ortho and Pulmonary. Put him back on his medications, some Toradol for pain and hopefully he will do well with some Xopenex and some oxygen. Dieter Griggs DO
[2018-10-18] MEDS: Sucralfate 1 gm/10 ml Oral Susp UD PO SCH (05:36)
[2018-10-18] MEDS ORDERED: Pantoprazole 40 mg EC Tab PO SCH (06:00)
[2018-10-18] MEDS ORDERED: Levothyroxine 50 MCG TAB PO SCH (06:00)
[2018-10-18 07:03] LABS: HEMOGLOBIN 12.3 g/dL (14.0-18.0); LYMPH # 0.8 (1.2-3.4); MEAN CELL VOLUME 102.4 fl (80.0-105.0); MEAN CORPUSCULAR HEMOGLOBIN 33.1 pg (25.0-35.0); MEAN CORPUSCULAR HGB CONC 32.3 g/dl (31.0-37.0); MEAN PLATELET VOLUME 11.3 fl (7.0-11.0); MONO # 0.5 (0.1-0.6); RBC 3.72 {null, 10^6/uL} (3.5-6.1); RED CELL DISTRIBUTION WIDTH 16.6 % (11.5-14.5); WHITE BLOOD COUNT 2.8 {null, 10^3/uL} (4.5-11.0)
[2018-10-18 07:07] LABS: INR 1.28; PROTHROMBIN TIME 14.5 SECONDS (9.4-12.5)
[2018-10-18 07:52] LABS: ALBUMIN 3.5 g/dL (3.0-4.8); CALCIUM 8.7 mg/dL (8.4-10.5)
[2018-10-18 08:19] VITALS: PULSE 69; RESP 20; TEMP 97.3
[2018-10-18 08:20] VITALS: BP 161/77; O2SAT 97
[2018-10-18] MEDS ORDERED: Lidocaine 5% Patch TD SCH (10:00)
[2018-10-18] MEDS: cefTRIAXone 1 gm 1 GM/100 ML BAG IVPB SCH (10:21)
--- NOTE | 2018-10-18 11:00 | CARD ---
APPROVED REPORT Date of service: 10/17/2018 EKG Measurement Heart [id number] <Conclusion> Electronic ventricular pacemaker
--- NOTE | 2018-10-18 18:13 | CON ---
DATE: 10/18/2018 ORTHOPEDIC CONSULT HISTORY OF PRESENT ILLNESS: The patient had a fall prior to admission day before and came to the ER on 10/17/2018. His x-ray shows a fracture of his right rib at 5 and 6 with minimal discomfort and he is breathing well. I told him no braces needed for that right rib fractures and to do manolo breathing exercises. nondisplaced rib fracture seen on the right 8th and 9th ribs. No evidence of pneumothorax. I told him to use a pillow splint when he does deep breathing and coughing, this may take six weeks to feel better, every week he will feel little better and he should do the spirometer to decrease the chances of atelectasis. FINAL DIAGNOSIS: Stable rib fractures on the right side of 8th and 9th to expect uneventful healing and no wrapping of the chest is needed, just a pillow splint. Salvador Bonner DO [facility]
--- NOTE | 2018-10-18 19:10 | CON ---
DATE: 10/18/2018HISTORY OF PRESENT ILLNESS: The patient is status recent post fall at home. He was brought to emergency room complaining of right-sided chest pain. No other associated signs and symptoms PAST MEDICAL HISTORY: Positive for atrial fibrillation. He is on Coumadin. He also has pacemaker. He has a history of congestive heart failure, diabetes, and hypertension. He did not lose consciousness. He has a history of bronchitis, mild dementia and hearing loss as well as hypothyroidism. FAMILY HISTORY: No history of inherited disease. SOCIAL HISTORY: He is a former smoker, still drinks alcohol socially. No drugs. ALLERGIES: NO KNOWN ALLERGIES. MEDICATIONS: He is on multiple medications at home including Aricept, Carafate, Coumadin, Protonix, Seroquel, and Synthroid. REVIEW OF SYSTEMS: Review of systems was conducted by reviewing all sources. EARS, NOSE AND THROAT: History of hearing loss. No sore throat. CARDIOVASCULAR: History of atrial fibrillation and pacemaker. PULMONARY: Complains of chest pain on deep inspiration on the right side and occasional cough. GASTROINTESTINAL: No nausea, vomiting or diarrhea. GENITOURINARY: No dysuria or hematuria. The rest of the systems were reviewed and found to be negative. PHYSICAL EXAMINATION: VITAL SIGNS: His temperature is 98.8, pulse is 64, respirations are 20, and blood pressure is 114/48. HEENT: Head is normocephalic and atraumatic. NECK: Supple. There is no jugular vein distention. CARDIOVASCULAR: S1 and S2. No S3, irregular. A 2/6 systolic ejection murmur. PULMONARY: Diminished breath sounds with few scattered rhonchi. No wheezing. GASTROINTESTINAL: Soft and nontender. No organomegaly. Bowel sounds present. EXTREMITIES: No pedal edema. No cyanosis. NEUROLOGIC: Limited at present time. SKIN: Warm and dry. No skin rashes. DIAGNOSTIC DATA: CT head with no acute bleed. He had nondisplaced fractures of the 8th and 9th ribs. He has findings of acute bronchitis. LABORATORY DATA: Shows slight increase in BUN to 27; however, creatinine is moderately increased to 1.8. Blood sugar 116. White count 4.7 and hemoglobin of 12.2. ASSESSMENT: 1. Two ribs fractures on the right. 2. Chest contusion. 3. Acute bronchitis. 4. Renal insufficiency. 5. Chronic atrial fibrillation. PLAN: The patient was started on nebulizer treatments with Xopenex, supplemental oxygen will be offered, but saturation will be checked, if he does not need supplemental oxygen, this will be removed. I agree with current coverage with Rocephin. We will follow closely. Wagner Davis MD [facility]
--- NOTE | 2018-10-19 05:42 | DS ---
HISTORY OF PRESENT ILLNESS: He is sitting up in bed. He is feeling well. He is on good spirits. He is breathing well and better. There is some chest pain secondary to 2 rib fractures, ribs 8 and 9 on the right. He also has a little bit of UTI. He will be placed on Augmentin when he goes home. I will see him on house call and is going to be discharged today. He is doing not much better. He will go home on his regular medications. PHYSICAL EXAMINATION: VITAL SIGNS: He has a 97.3 temp, 69 pulse, 161/77 blood pressure, 20 respiratory rate and 97% O2 sat on room air. HEENT: Head is atraumatic and normocephalic. HEART: Regular rate. LUNGS: Decreased breath sounds, but clear. No wheezes, rhonchi or rales. ABDOMEN: Soft. EXTREMITIES: No edema. Right-sided rib pain, but there is no displacement, he had fractured ribs. ASSESSMENT AND PLAN: I discussed with pulmonary, they said it is okay for him to be discharged home. He had a fall, I think it is better for this 88-year-old to be home. He will on his medications. He will be on Augmentin, antibiotics, incentive spirometry and Lidoderm patch. I will see him on a house call. The pharmacy is to call me to go over the medications. He had a fall and fractured right ribs. Dieter Griggs DO
== END 2018-10-18 15:12 | disposition home or self-care (01) ==
LOC: ED 09:51 → ERH 12:33 → INTOOBSV 12:33 → ERH 13:58 → 5RNO 16:24
PROVIDERS: ADMIT Family Medicine; ATTEND Family Medicine
DX: S22.41XA Multiple fractures of ribs, right side, initial encounter for closed fracture (principal); W19.XXXA Unspecified fall, initial encounter; Y92.009 Unspecified place in unspecified non-institutional (private) residence as the place of occurrence of the external cause; N39.0 Urinary tract infection, site not specified; I48.2 Chronic atrial fibrillation; J20.9 Acute bronchitis, unspecified; N40.0 Benign prostatic hyperplasia without lower urinary tract symptoms; M48.02 Spinal stenosis, cervical region; F03.90 Unspecified dementia, unspecified severity, without behavioral disturbance, psychotic disturbance, mood disturbance, and anxiety; E03.9 Hypothyroidism, unspecified; E11.9 Type 2 diabetes mellitus without complications; I50.9 Heart failure, unspecified; I11.0 Hypertensive heart disease with heart failure; N28.9 Disorder of kidney and ureter, unspecified; M43.12 Spondylolisthesis, cervical region; Z79.01 Long term (current) use of anticoagulants; H91.90 Unspecified hearing loss, unspecified ear; Z95.0 Presence of cardiac pacemaker; Z87.891 Personal history of nicotine dependence
CPT/HCPCS: 36415; 70450; 71101; 72125; 80053; 81001; 85025; 85610; 85730; 87086; 93005; 94640; 96365; 96366; 96375; 97116; 97161; 99285; G0378; G8978; G8979; J0696; J1885; J2930; J7030